=== PATIENT | female | born 1960 | race African-American/Black ===

== ENCOUNTER 2016-10-22 14:46 | Emergency (ER) | payer MEDICAID, OTHER ==
[~2016-10-22] VITALS: Ht 165.1 cm; Wt 72.6 kg
[~2016-10-22 14:46] MED LIST: METOPROLOL25 MG; NAPROSYN250 M1 PO; VICODIN 5/500 M1 TAB PO; ZOCOR20 MG PO
[2016-10-22 15:14] VITALS: BP 159/90
--- NOTE | 2016-10-22 16:30 | NUR ---
PT AMBULATED TO BED 5.
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
[2016-10-22] MEDS ORDERED: HYDROcodone/APAP 5/325 MG 1 TAB TAB PO ONE (16:50)
[2016-10-22] MEDS ORDERED: IBUPROFEN 600 MG TAB PO ONE (16:50)
--- NOTE | 2016-10-22 17:17 | NUR ---
PT TAKEN TO XRAY VIA W/C ACCOMPANIED BY [employer].
--- NOTE | 2016-10-22 17:45 | NUR ---
ER MD DR. RODAS EVALUATING PT AT BEDSIDE.
[2016-10-22 19:02] VITALS: BP 141/83
--- NOTE | 2016-10-22 19:02 | NUR ---
Patient discharged with v/s stable. Written and verbal after care instructions given and explained. Patient alert, oriented and verbalized understanding of instructions. Ambulatory with steady gait. All questions addressed prior to discharge. ID band removed. Patient advised to follow up with PMD. Rx of NORCO 5MG-325MG TAB & ZOFRAN ODT 4MG given. Patient educated on indication of medication including possible reaction and side effects. Opportunity to ask questions provided and answered.
== END 2016-10-22 19:02 | disposition home or self-care (01) ==
LOC: MED 14:46
DX: S33.5XXA Sprain of ligaments of lumbar spine, initial encounter (principal); S13.9XXA Sprain of joints and ligaments of unspecified parts of neck, initial encounter; S20.219A Contusion of unspecified front wall of thorax, initial encounter; I10 Essential (primary) hypertension; F17.200 Nicotine dependence, unspecified, uncomplicated; Z98.890 Other specified postprocedural states; Z88.8 Allergy status to other drugs, medicaments and biological substances; V89.2XXA Person injured in unspecified motor-vehicle accident, traffic, initial encounter; Y93.89 Activity, other specified; Y92.89 Other specified places as the place of occurrence of the external cause; Y99.8 Other external cause status

== ENCOUNTER 2018-03-18 03:09 | Inpatient (IN) | payer OTHER ==
[~2018-03-18] VITALS: Ht 157.5 cm; Wt 61.2 kg
[2018-03-18 03:09] VITALS: BP 143/81
[~2018-03-18 03:09] MED LIST changes: +METO25TA14; -METOPROLOL25 MG; +NAPR250T1 PO; -NAPROSYN250 M1 PO; +SIMV20TA1 PO; +VIC PO; -VICODIN 5/500 M1 TAB PO; -ZOCOR20 MG PO
--- NOTE | 2018-03-18 03:09 | NUR ---
TO BED # 11 VIA W/C, REPORT GIVEN TO CASSIDY VIERA
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
[2018-03-18] MEDS ORDERED: NACL 0.9% 1,000 ML IV SCH (03:22)
[2018-03-18] MEDS ORDERED: fentaNYL 0.05 MG/ML VIAL IVP ONE (03:25)
[2018-03-18] MEDS ORDERED: ONDANSETRON 4 MG/2 ML VIAL IVP ONE (03:25)
--- NOTE | 2018-03-18 03:40 | NUR ---
PT TAKEN TO CT
[2018-03-18 03:44] LABS: BASOPHILS % (AUTO) 0.5 % (0.0-2.0); EOSINOPHILS % (AUTO) 0.3 % (0.0-4.0); HEMATOCRIT 41.9 % (36-48); HEMOGLOBIN 13.6 g/dL (12.0-16.0); LYMPHOCYTES # (AUTO) 1.4 K/uL (2.5-16.5); LYMPHOCYTES % (AUTO) 26.1 % (20.5-51.1); MEAN CORPUSCULAR HEMOGLOBIN 29 pg (27-31); MEAN CORPUSCULAR HGB CONC 33 g/dL (33-37); MEAN CORPUSCULAR VOLUME 88.4 fL (80-94); MONOCYTES # (AUTO) 0.4 K/uL (0.8-1.0); MONOCYTES % (AUTO) 7.1 % (1.7-9.3); NEUTROPHILS # (AUTO) 3.6 K/uL (1.8-7.7); PLATELET COUNT (AUTO) 226 K/uL (140-450); RED BLOOD CELL COUNT(AUTO) 4.74 MIL/uL (4.20-5.40); RED CELL DISTRIBUTION WIDTH 13.7 % (11.6-13.7); WHITE BLOOD COUNT (AUTO) 5.5 K/uL (4.8-10.8)
[2018-03-18 04:01] LABS: ANION GAP 7.1 (8-16); CARBON DIOXIDE 27.4 mmol/L (21-32); CREATININE 1.2 mg/dL (0.6-1.3); POTASSIUM 3.5 mmol/L (3.5-5.1)
[2018-03-18 04:07] LABS: TOTAL BILIRUBIN 0.3 mg/dL (0.0-1.0)
[2018-03-18] MEDS ORDERED: MORPHINE SULFATE 10 MG/ML SYR IVP ONE (04:40)
--- NOTE | 2018-03-18 04:40 | NUR ---
ER AT BEDSIDE TO SPEAK WITH PT AND PT'S . PT'S LEAVING AT THIS TIME, LEFT CONTACT INFO MER MUNROE [id number]
[2018-03-18] MEDS ORDERED: MORPHINE SULFATE 10 MG/ML SYR ONE (04:53)
--- NOTE | 2018-03-18 04:55 | NUR ---
MS 10MG VIAL NOT AVAILABLE IN XIS, MED RECEIVED FROM DUST SAMPLER. PT IN SEVERE PAIN, VS NOTED, ADMINISTERED MED. PT TOLERATED WELL. ALL NEEDS MET AT THIS TIME.
[2018-03-18] MEDS ORDERED: ONDANSETRON 4 MG/2 ML VIAL IVP PRN (05:15)
--- NOTE | 2018-03-18 05:30 | NUR ---
PT UNABLE TO COLLECT URINE AT THIS TIME, ENSORED TO MS VIERA
--- NOTE | 2018-03-18 05:40 | NUR ---
Patient will be admitted to care of DR. OLSON. Admited to MS. Will go to room 107B. Belongings list completed. Report to AYLIN MARIE AT BEDSIDE.
--- NOTE | 2018-03-18 05:50 | NUR ---
ADMITTED A 57 Y/O FEMALE FROM VIA GURNEY WITH C/C OF RIGHT LOWER QUADRANT PAIN X 5 HRS, NAUSEA/VOMITING.V/S TAKEN FOR BASELINE. NO S/S OF DISTRESS NOTED AT THIS TIME. PATIENT AMBULATORY WITH ASSIST, AAOX4.,DENIES PAIN AT THIS TIME. PERSONAL BELONGINGS AT PATIENT BEDSIDE. SKIN INTACT. MRSA NASAL SWAB DONE AND SEND TO LAB. FALL PRECAUTION IN PLACE. INSTRUCTED PATIENT TO USE THE CALL LIGHT IF SHE NEED ASSISTANCE VERBALIZED UNDERSTANDING. EXPLAINED PLAN OF CARE , ALL NEEDS ATTENDED. PLACE BLANKET FOR COMFORT. WILL CONTINUE TO MONITOR.
--- NOTE | 2018-03-18 07:10 | NUR ---
RECEIVED PT REPORT FROM REFINERY OPERATOR HELPER RN. PT IS AAOX4, AMBULATE WITH ASSIST. CC: ABD PAIN. IV NOTED TO LEFT AC, 18, PATENT AND INTACT. FALL PRECAUTIONS IN PLACE. CALL LIGHT WITHIN REACH, WILL CONTINUE TO MONITOR.
[2018-03-18] MEDS: DEXT 5% / NACL 0.45% 1,000 ML IV SCH ×2 (07:30→15:42)
--- NOTE | 2018-03-18 07:32 | NUR ---
GAVE REPORT TO AM SHIFT RN AT BEDSIDE FOR CONTINUITY OF CARE. PATIENT IN STABLE CONDITION.
[2018-03-18 08:00] VITALS: BP 142/90
--- NOTE | 2018-03-18 08:49 | NUR ---
PATIENT HAS BEEN SCREENED AND CATEGORIZED MODERATE NUTRITION RISK. PATIENT WILL BE SEEN WITHIN 3-5 DAYS OF ADMISSION. 03/20/18 03/22/[address]
[2018-03-18] MEDS: ENOXAPARIN 40 MG/0.4 ML SYR SUBQ SCH (09:42)
--- NOTE | 2018-03-18 10:30 | NUR ---
ASSIST PT TO RESTROOM, COLLECTED URINE SAMPLE, SENT TO LAB. NO S/S OF ACUTE DISTRESS NOTED.
[2018-03-18] MEDS: HYDROmorphone 1 MG/ML AMP IVP PRN ×3 (11:25→22:08)
--- NOTE | 2018-03-18 12:45 | NUR ---
CM NOTE INITIAL REVIEW FAXED TO [facility] [phone] [facility] # [phone]
[2018-03-18 12:48] LABS: BILIRUBIN,URINE NEGATIVE (NEGATIVE); BLOOD, URINE 1+ (NEGATIVE); COLOR,URINE YELLOW (YELLOW); LEUKOCYTE ESTERASE ,URINE 1+ (NEGATIVE); NITRITE, URINE NEGATIVE (NEGATIVE); UGLUCOSE NEGATIVE (NEGATIVE)
[2018-03-18 12:56] LABS: APPEARANCE,URINE SLIGHTLY HAZY (CLEAR)
[2018-03-18 12:57] LABS: RBC,URINE 0-5 (RARE) /HPF (0-5)
[2018-03-18] MEDS ORDERED: INFLUENZA VIRUS VACCINE QUAD 0.5 ML SYR IMVAC SCH (14:55)
[2018-03-18] MEDS ORDERED: PNEUMOCOCCAL VACCINE 23 MCG/0.5 ML VIAL IMVAC SCH (14:55)
[2018-03-18 16:00] VITALS: BP 123/77
--- NOTE | 2018-03-18 17:10 | NUR ---
DR SHARMA HAS SEEN THE PT.
[2018-03-18 18:25] LABS: PROTHROMBIN TIME 10.4 secs (10.8-13.4)
--- NOTE | 2018-03-18 19:26 | NUR ---
CALLED DR SHARMA, NOTIFIED X RAY ABD RESULT, DR SHARMA ORDERED REGULAR DIET. WHEN ASKED IF PT GOING FOR SX, DR SHARMA SAID NO.
--- NOTE | 2018-03-18 19:39 | NUR ---
ENDORSED PT TO DIRECTOR INFORMATION SECURITY RN. PT IN STABLE CONDITION.
--- NOTE | 2018-03-18 19:39 | NUR ---
RECEIVED PT REPORT FROM HOME OFFICE REPRESENTATIVE RN. PT IS AAOX4, AMBULATE WITH ASSIST. CC: ABD PAIN. IV NOTED TO LEFT AC, 18, PATENT AND INTACT. FALL PRECAUTIONS IN PLACE. CALL LIGHT WITHIN REACH, WILL CONTINUE TO MONITOR. Addendum: 03/18/18 at 1942 by Juan Tripathi RN PLEASE DISCARD, WRONG TIME ENTERED.
--- NOTE | 2018-03-18 19:39 | NUR ---
RECEIVED REPORT FROM DAY SHIFT RN, MANOLO, AT PT BEDSIDE. PT IN STABLE CONDITION. PT IS CURRENTLY SLEEPING BUT EASILY AROUSABLE. IV IN L AC 18G WITH IVF RUNNING PER MD ORDERS. IV IS PATENT AND INTACT. PT SKIN IS INTACT. NO C/O PAIN AT THIS TIME. BED IS LOCKED, LOW POSITION, WITH SIDE RAILS UP X2. BOARD UPDATED. CALL LIGHT WITHIN REACH. WILL CONTINUE TO MONITOR PT.
--- NOTE | 2018-03-18 20:53 | NUR ---
PT AT BEDSIDE. PT STILL SLEEPING BUT EASILY AROUSABLE. NO SIGNS OR SYMPTOMS OF DISTRESS. WILL CONTINUE TO MONITOR.
--- NOTE | 2018-03-18 22:08 | NUR ---
PT C/O PAIN. DILAUDID GIVEN. PT TOLERATED WELL. WILL CONTINUE TO MONITOR.
--- NOTE | 2018-03-18 23:08 | NUR ---
PT ASLEEP IN BED. NO SIGNS OR SYMPTOMS OF DISTRESS. WILL CONTINUE TO MONITOR.
[2018-03-19] VITALS: BP 137/85
--- NOTE | 2018-03-19 01:04 | NUR ---
PT HAS NO CHANGE IN CONDITION. NO SIGNS OR SYMPTOMS OF DISTRESS. WILL CONTINUE TO MONITOR.
--- NOTE | 2018-03-19 03:21 | NUR ---
ASSISTED PT UP TO BATHROOM. PT TOLERATED WELL. PT NOW BACK IN BED. NO SIGNS OR SYMPTOMS OF DISTRESS. WILL CONTINUE TO MONITOR.
[2018-03-19] MEDS: DEXT 5% / NACL 0.45% 1,000 ML IV SCH (03:26)
--- NOTE | 2018-03-19 05:17 | NUR ---
BOAT RIDE OPERATOR AT PT BEDSIDE FOR LABS DRAW.
[2018-03-19] MEDS: HYDROmorphone 1 MG/ML AMP IVP PRN (05:26)
--- NOTE | 2018-03-19 05:26 | NUR ---
PT C/O PAIN. DILAUDID GIVEN. PT TOLERATED WELL. WILL CONTINUE TO MONITOR.
[2018-03-19 05:50] LABS: BASOPHILS % (AUTO) 0.5 % (0.0-2.0); EOSINOPHILS # (AUTO) 0.1 K/uL (0-0.4); EOSINOPHILS % (AUTO) 1.3 % (0.0-4.0); HEMATOCRIT 37.8 % (36-48); HEMOGLOBIN 12.2 g/dL (12.0-16.0); LYMPHOCYTES # (AUTO) 2.5 K/uL (2.5-16.5); LYMPHOCYTES % (AUTO) 55.9 % (20.5-51.1); MEAN CORPUSCULAR HEMOGLOBIN 29 pg (27-31); MEAN CORPUSCULAR HGB CONC 32 g/dL (33-37); MEAN CORPUSCULAR VOLUME 88.9 fL (80-94); MONOCYTES # (AUTO) 0.4 K/uL (0.8-1.0); MONOCYTES % (AUTO) 9.4 % (1.7-9.3); NEUTROPHILS # (AUTO) 1.5 K/uL (1.8-7.7); NEUTROPHILS % (AUTO) 32.9 % (42.2-75.2); PLATELET COUNT (AUTO) 193 K/uL (140-450); RED BLOOD CELL COUNT(AUTO) 4.25 MIL/uL (4.20-5.40); RED CELL DISTRIBUTION WIDTH 13.6 % (11.6-13.7); WHITE BLOOD COUNT (AUTO) 4.5 K/uL (4.8-10.8)
[2018-03-19 06:18] LABS: CARBON DIOXIDE 26.4 mmol/L (21-32); CREATININE 0.9 mg/dL (0.6-1.3)
--- NOTE | 2018-03-19 06:26 | NUR ---
PT NOW RESTING COMFORTABLY IN BED. PAIN NO 2/10. ALL PT NEEDS ARE MET AT THIS TIME. NO SIGNS OR SYMPTOMS OF DISTRESS. WILL CONTINUE TO MONITOR.
[2018-03-19 06:32] LABS: ANION GAP 5.6 (8-16)
--- NOTE | 2018-03-19 07:22 | NUR ---
ENDORSED PT TO DAY SHIFT NURSE. PT IN STABLE CONDITION.
--- NOTE | 2018-03-19 07:25 | NUR ---
RECEIVED REPORT FROM SHIPPING CLERK NURSE, PT IS SLEEPING IN BED, BUT EASILY AWAKEN, PT IS AMBULATORY, IV IS ON THE LEFT AC, PATENT, INTACT, FLUSHING WELL, ON ROOM AIR, NO S/S RESPIRATORY DISTRESS OR DISCOMFORT NOTED, DISCUSSED PLAN OF CARE WITH PT, PT VERBALIZED UNDERSTANDING, CALL LIGHT IS WITHIN REACH, WILL CONTINUE TO MONITOR.
[2018-03-19 08:00] VITALS: BP 139/91
[2018-03-19] MEDS: ENOXAPARIN 40 MG/0.4 ML SYR SUBQ SCH (08:22)
[2018-03-19] MEDS ORDERED: PANTOPRAZOLE 40 MG INJ VIAL IVP SCH (09:00)
--- NOTE | 2018-03-19 09:02 | NUR ---
DR. OLSON HERE TO SEE PATIENT. I LET DR. OLSON THE PATIENT'S POTASSIUM LEVEL WAS 3.0.
--- NOTE | 2018-03-19 09:05 | NUR ---
CM NOTE CONCURRENT REVIEW FAXED TO [facility] [phone] [facility] # [phone]
[2018-03-19] MEDS ORDERED: ONDANSETRON 4 MG/2 ML VIAL IVP PRN (09:07)
[2018-03-19] MEDS ORDERED: POTASSIUM CHLORIDE 10 MEQ TABER PO SCH (10:30)
--- NOTE | 2018-03-19 11:00 | NUR ---
DISCHARGE INSTRUCTIONS GIVEN, PT IV REMOVED, CATHETER TIP INTACT, ID WRIST BAND REMOVED. PT STABLE UPON DISCHARGE ACCOMPANIED BY HER .
--- NOTE | 2018-03-20 08:36 | NUR ---
DISCHARGE SUMMARY FAXED TO [facility] [phone]
== END 2018-03-19 11:00 | disposition home or self-care (01) | DRG 254 ==
LOC: MED 03:09 → MTU 05:13
PROVIDERS: ADMIT Internal Medicine; ATTEND Internal Medicine
PROC: 3E0234Z Introduction of Serum, Toxoid and Vaccine into Muscle, Percutaneous Approach (ICD-10-PCS; principal; 2018-03-18)
DX: K43.0 Incisional hernia with obstruction, without gangrene (principal); E78.5 Hyperlipidemia, unspecified; I10 Essential (primary) hypertension; Z23 Encounter for immunization; Z79.899 Other long term (current) drug therapy
CPT/HCPCS: 36415; 74022; 80048; 80053; 81001; 81025; 83690; 85025; 85610; 85730; 86886; 86900; 86901; 87081; 87086; 90658; 96374; 96375; 99285; C9113; J1170; J1650; J2270; J2405; J3010

== ENCOUNTER 2018-05-31 03:13 | Emergency (ER) | payer OTHER ==
[~2018-05-31] VITALS: Ht 157.5 cm; Wt 63.5 kg
[2018-05-31 03:13] VITALS: BP 159/93
--- NOTE | 2018-05-31 03:13 | NUR ---
Patient BIBA BLS, transferred to bed 8. RN evaluating patient at bedside.
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
[2018-05-31] MEDS ORDERED: NACL 0.9% 500 ML IV SCH (03:21)
[2018-05-31] MEDS ORDERED: ONDANSETRON 4 MG/2 ML VIAL IVP ONE (03:25)
[2018-05-31] MEDS ORDERED: fentaNYL 0.05 MG/ML VIAL IVP ONE ×2 (03:25→04:00)
[2018-05-31 03:39] LABS: WHITE BLOOD COUNT (AUTO) 4.8 K/uL (4.8-10.8)
--- NOTE | 2018-05-31 03:48 | NUR ---
Patient taken to CT scan via gurney by Yunzhisheng.
--- NOTE | 2018-05-31 03:50 | NUR ---
pt states pain down to 4/10 from 10/10 and pain is still coming down. pt appears relaxed in bed, hr 82 bp 159/83, rr 13, spo2 100% room air. will continue to observe.
[2018-05-31 03:51] LABS: HEMATOCRIT 40.8 % (36-48); HEMOGLOBIN 12.8 g/dL (12.0-16.0); MEAN CORPUSCULAR HEMOGLOBIN 28 pg (27-31); MEAN CORPUSCULAR HGB CONC 32 g/dL (33-37); MEAN CORPUSCULAR VOLUME 89.1 fL (80-94); PLATELET COUNT (AUTO) 214 K/uL (140-450); RED BLOOD CELL COUNT(AUTO) 4.58 MIL/uL (4.20-5.40); RED CELL DISTRIBUTION WIDTH 14.3 % (11.6-13.7)
[2018-05-31 03:53] LABS: ANION GAP 7.9 (8-16); CARBON DIOXIDE 30.5 mmol/L (21-32); POTASSIUM 3.4 mmol/L (3.5-5.1)
[2018-05-31 03:57] LABS: PROTHROMBIN TIME 9.6 secs (10.8-13.4)
[2018-05-31 03:58] LABS: ALBUMIN 3.5 g/dL (3.4-5.0); TOTAL BILIRUBIN 0.3 mg/dL (0.0-1.0)
[2018-05-31 04:11] LABS: LYMPHOCYTES % (MANUAL) 59 % (20-46); MONOCYTES % (MANUAL) 8 % (5-12)
--- NOTE | 2018-05-31 04:48 | NUR ---
Dr. Palomares evaluating patient at bedside.
--- NOTE | 2018-05-31 04:50 | NUR ---
pt states pain now 0/10 pain. VSS. no acute distress noted. will continue to observe.
--- NOTE | 2018-05-31 05:00 | NUR ---
Patient discharged with v/s stable. Written and verbal after care instructions given and explained. Patient alert, oriented and verbalized understanding of instructions. Ambulatory with steady gait. All questions addressed prior to discharge. ID band removed. Patient advised to follow up with PMD. Rx of lactulose, mineral oil given. Patient educated on indication of medication including possible reaction and side effects. Opportunity to ask questions provided and answered.
[2018-05-31 05:14] VITALS: BP 140/68
== END 2018-05-31 05:00 | disposition home or self-care (01) ==
LOC: MED 03:13
DX: K59.09 Other constipation (principal); I10 Essential (primary) hypertension; Z79.899 Other long term (current) drug therapy; Z88.8 Allergy status to other drugs, medicaments and biological substances
CPT/HCPCS: 36415; 71045; 74176; 80053; 81002; 81025; 83605; 85025; 85610; 85730; 87040; 93005; 96361; 96374; 96375; 96376; 99284; J2405; J3010; J7030; Q0092

== ENCOUNTER 2018-08-09 02:03 | Inpatient (IN) | payer OTHER ==
[~2018-08-09] VITALS: Ht 157.5 cm; Wt 67.6 kg
[2018-08-09 02:05] VITALS: BP 129/93
--- NOTE | 2018-08-09 02:25 | NUR ---
PT BIB FAMILY C/O RLQ "HERNIA" PAIN, X2 DAYS. ABD IS DISTENDED AND TENDER TO TOUCH IN RLQ. PT DENIES FEVER. REPORTS NAUSEA, DENIES VOMITING. REPORTS SOFT BM TODAY, DENIES DIARRHEA OR CONSTIPATION. TOOK NORCO AT 1600 WITHOUT RELIEF. HX HERNIA, CHF, HTN, GERD RX: LASIX, NORCO
--- NOTE | 2018-08-09 02:31 | NUR ---
Dr. Palomares evaluating patient at bedside.
[2018-08-09] MEDS ORDERED: NACL 0.9% 1,000 ML IV SCH ×2 (02:32→04:00)
[2018-08-09] MEDS ORDERED: fentaNYL 0.05 MG/ML VIAL IVP ONE (02:35)
[2018-08-09] MEDS ORDERED: ONDANSETRON 4 MG/2 ML VIAL IVP ONE (02:35)
[2018-08-09] MEDS ORDERED: ONDANSETRON 4 MG/2 ML VIAL ONE (02:57)
[2018-08-09] MEDS ORDERED: fentaNYL 0.05 MG/ML VIAL ONE (02:57)
[2018-08-09 03:01] LABS: BASOPHILS # (AUTO) 0.1 K/uL (0.00-0.22); BASOPHILS % (AUTO) 1.2 % (0.0-2.0); EOSINOPHILS # (AUTO) 0.1 K/uL (0-0.4); EOSINOPHILS % (AUTO) 1.7 % (0.0-4.0); HEMATOCRIT 37.7 % (36-48); HEMOGLOBIN 12.1 g/dL (12.0-16.0); LYMPHOCYTES # (AUTO) 2.3 K/uL (2.5-16.5); LYMPHOCYTES % (AUTO) 37.6 % (20.5-51.1); MEAN CORPUSCULAR HEMOGLOBIN 29 pg (27-31); MEAN CORPUSCULAR HGB CONC 32 g/dL (33-37); MONOCYTES # (AUTO) 0.8 K/uL (0.8-1.0); MONOCYTES % (AUTO) 12.6 % (1.7-9.3); NEUTROPHILS # (AUTO) 2.9 K/uL (1.8-7.7); NEUTROPHILS % (AUTO) 46.9 % (42.2-75.2); PLATELET COUNT (AUTO) 220 K/uL (140-450); RED BLOOD CELL COUNT(AUTO) 4.24 MIL/uL (4.20-5.40); RED CELL DISTRIBUTION WIDTH 13.9 % (11.6-13.7); WHITE BLOOD COUNT (AUTO) 6.1 K/uL (4.8-10.8)
[2018-08-09 03:06] LABS: ANION GAP 10.2 (8-16); CREATININE 0.8 mg/dL (0.6-1.3); POTASSIUM 4.2 mmol/L (3.5-5.1)
[2018-08-09 03:11] LABS: APPEARANCE,URINE CLEAR (CLEAR); BILIRUBIN,URINE NEGATIVE (NEGATIVE); BLOOD, URINE 1+ (NEGATIVE); COLOR,URINE YELLOW (YELLOW); LEUKOCYTE ESTERASE ,URINE 2+ (NEGATIVE); NITRITE, URINE NEGATIVE (NEGATIVE); UGLUCOSE TRACE (NEGATIVE)
[2018-08-09 03:21] LABS: ALBUMIN 3.3 g/dL (3.4-5.0); TOTAL BILIRUBIN 0.1 mg/dL (0.0-1.0)
[2018-08-09 03:23] LABS: WBC,URINE 20-60 /HPF (0-5)
[2018-08-09] MEDS ORDERED: ASPIRIN 81 MG TAB.CHEW PO ONE (03:35)
[2018-08-09] MEDS ORDERED: LEVOFLOXACIN 500 MG/D5W PREMIX 100 ML IV ONE ×2 (03:35→03:49)
[2018-08-09 03:41] LABS: PROTHROMBIN TIME 9.8 secs (10.8-13.4)
[2018-08-09] MEDS ORDERED: ASPIRIN 81 MG TAB.CHEW ONE (03:48)
[2018-08-09] MEDS ORDERED: hePARIN / DEXT 5% PREMIX 250 ML IV SCH ×3 (03:50→21:35)
[2018-08-09] MEDS ORDERED: HEPARIN PER PHARMACY MC PRN ×2 (03:50→20:45)
[2018-08-09] MEDS ORDERED: DOCUSATE SODIUM 100 MG GELCAP PO PRN (03:50)
[2018-08-09] MEDS ORDERED: ONDANSETRON 4 MG/2 ML VIAL IM/IVP PRN (03:50)
[2018-08-09] MEDS ORDERED: ACETAMINOPHEN 325 MG TAB PO PRN (03:50)
[2018-08-09] MEDS ORDERED: MORPHINE SULFATE 4 MG/ML SYR IVP ONE (03:55)
[2018-08-09] MEDS ORDERED: NITROGLYCERIN 0.4 MG TAB SL PRN (03:55)
[2018-08-09] MEDS ORDERED: MORPHINE SULFATE 2 MG/ML SYR ONE (04:06)
[2018-08-09 04:09] LABS: BARBITURATE, URINE NEG. ng/ml (NEG <=200); BENZODIAZEPINE, URINE NEG. ng/mL (NEG <=200); CANNABINOID, URINE POS. ng/mL (NEG <=50); COCAINE, URINE NEG. ng/mL (NEG <=300); OPIATE, URINE NEG. ng/mL (NEG <=2000); PHENCYCLIDINE SCREEN,URINE NEG. ng/mL (NEG <=25)
[2018-08-09 04:10] VITALS: BP 143/94
--- NOTE | 2018-08-09 04:10 | NUR ---
RECEIVED PT FROM ER AWAKE,AMBULATORY C/O ABD PAIN RIGHT SIDE. PT ON TELE. PT VOIDED 2X WITH CLEAR YELLOW URINE. PASSED OUT GAS. WITH NS IVF ONGOING AND LEVOFLOXACIN ON RIGHT AC G 20, PATENT. POC REVIEWED. CALL ;LIGHT WITHIN EASY REACH
--- NOTE | 2018-08-09 04:15 | NUR ---
Patient will be admitted to care of DR HERNANDEZ. Admited to TELE VIA GURNEY WITH VSS. Will go to room 124B. Belongings list completed. Report to IRMA VIERA.
[2018-08-09 04:18] LABS: CHOL/HDL RATIO 1.9 (1-4.5); MAGNESIUM 1.8 mg/dL (1.8-2.4); PHOSPHORUS 3.2 mg/dL (2.5-4.9); THYROID STIMULATING HORMONE 1.3 uIU/mL (0.34-3.74)
--- NOTE | 2018-08-09 05:00 | NUR ---
INFORMED . RESULT OF CT ABDOMEN; LOWER ABD HERNIA, HERNIATED SMALL BOWEL AND INFLAMMATION WELL, EARLY BOWEL OBSTRUCTION
[2018-08-09] MEDS ORDERED: cefTRIAXone 1,000 MG VIAL ONE (06:01)
--- NOTE | 2018-08-09 06:16 | NUR ---
STILL AWAITING CT SCAN OF THE HEAD. PLS AWAIT RESULTS OF CT SCAN 1ST PRIOR TO STARTING HEPARIN DRIP PER DE. ALY
[2018-08-09] MEDS: DEXT 5% / NACL 0.45% 1,000 ML IV SCH ×3 (06:39→22:35)
--- NOTE | 2018-08-09 07:19 | NUR ---
ENDORSED PT TO NEXT SHIFT FOR CONTUINITY OF CARE. JUST GOT BACK FROM CT SCAN OF THE HEAD. ENDORSED THAT PT NEEDS NGT WITH CONTINUOS SUCTION.
--- NOTE | 2018-08-09 07:20 | NUR ---
RECEIVED BEDSIDE REPORT FROM AYLIN SOLIS. PT STABLE, SLEEPING, BUT EASILY AROUSABLE. NO SIGNS OF DISTRESS NOTED. NO SOB NOTED. FAMILY AT THE BEDSIDE. NO REDNESS, SWELLING, OR INFLAMMATION NOTED ON IV SITE. CALL CUMMINGS WITHIN REACH. BED IN LOWEST POSITION. SAFETY MEASURES IN PLACE. PLAN OF CARE REVIEWED.
[2018-08-09 08:00] VITALS: BP 108/72
[2018-08-09] MEDS: LACTULOSE 20 GM/30 ML UDC PO SCH ×3 (09:00→17:00)
[2018-08-09] MEDS: ASPIRIN 81 MG TAB.CHEW PO SCH (09:00)
[2018-08-09] MEDS ORDERED: METOPROLOL 25 MG TAB PO SCH (09:00)
[2018-08-09] MEDS: LACTOBACILLUS RHAMNOSUS GG 1 EACH CAP PO SCH (09:00)
--- NOTE | 2018-08-09 09:00 | NUR ---
PT SIGNED CONSENT FOR HERNIA REPAIR. SCHEDULED MEDICATIONS NOT GIVEN DUE TO PT BEING NPO AND AWAITING SURGERY.
[2018-08-09 12:00] VITALS: BP 102/64
[2018-08-09] MEDS: MORPHINE SULFATE 2 MG/ML SYR IVP PRN ×2 (12:39→21:29)
--- NOTE | 2018-08-09 12:46 | NUR ---
ADMINISTERED PRN MORPHINE FOR RIGHT ABDOMINAL PAIN 12/17. PT TOLERATED WELL. SON AT THE BEDSIDE. PT SIGNED CONSENT FOR RELEASE OF MEDICAL RECORDS FROM [facility].
--- NOTE | 2018-08-09 14:30 | NUR ---
PT STABLE, SLEEPING, BUT EASILY AROUSABLE. SON AT THE BEDSIDE.
[2018-08-09 16:00] VITALS: BP 136/93
[2018-08-09] MEDS ORDERED: LORazepam 2 MG/ML VIAL IVP SCH (17:50)
--- NOTE | 2018-08-09 17:52 | NUR ---
ADMINISTERED ONE TIME DOSE OF ATIVAN PRIOR TO NG-TUBE INSERTION. PT TOLERATED WELL.
[2018-08-09 17:53] LABS: ANION GAP 11.9 (8-16); CARBON DIOXIDE 26.6 mmol/L (21-32); CREATININE 0.9 mg/dL (0.6-1.3); POTASSIUM 3.5 mmol/L (3.5-5.1)
--- NOTE | 2018-08-09 18:40 | NUR ---
NG-TUBE INSERTED. PT TOLERATED WELL. DAUGHTER AT THE BEDSIDE. WILL CALL FOR AN ORDER FOR X-RAY TO VERIFY NG-TUBE PLACEMENT.
--- NOTE | 2018-08-09 19:25 | NUR ---
RECEIVED PT IN STABLE CONDITION FROM AM NURSE. PT IS ASLEEP BUT EASILY AROUSE WHEN NAME CALLED. NO C/O ANY DISCOMFORT NOR PAIN NOTED AT THIS TIME. IVF INFUSING WELL ON THE RT AC#20. HAS ANOTHER HL ON LT AC G#20. KEPT NPO . WITH NGT TO INTERMITTENT SUCTION. NO OUTPUT NOTED AT THIS TIME. FAMILY AT BEDSIDE. PLAN OF CARE DISCUSSED AND VERBALIZED UNDERSTANDING. BED ON LOWEST POSITION, CALL LIGHT PLACED WITHIN EASY REACH. WILL CONTINUE TO MONITOR.
--- NOTE | 2018-08-09 19:26 | NUR ---
ENDORSED PT TO RN BETTY FOR CONTINUITY OF CARE. PT STABLE, AWAKE, AND ALERT. DAUGHTER AT THE BEDSIDE.
[2018-08-09 19:45] VITALS: BP 126/83
--- NOTE | 2018-08-09 19:45 | NUR ---
PT STILL KEPT NPO AND NGT IN PLACED. NO OUTPUT NOTED. KUB JUST DONE AT BEDSIDE. WILL FOLLOW UP RESULT.
--- NOTE | 2018-08-09 21:40 | NUR ---
KUB RESULT IN. RECOMMENDATION TO ADVANCE NGT 5CM . DR. LORENZO MADE AWARE. SOON IT WAS ADVANCE THEN OUTPUT ON NGT CAME OUT , LIGHT CREAM COLOR FLUIDS OUT @70ML. WILL CONTINUE TO MONITOR.
[2018-08-09] MEDS ORDERED: METOPROLOL SUCCINATE 50 MG TABER PO ONE (22:00)
[2018-08-09] MEDS ORDERED: CARVEDILOL 6.25 MG TAB PO SCH (22:30)
[2018-08-09] MEDS ORDERED: FUROSEMIDE 20 MG TAB PO SCH (22:30)
[2018-08-09] MEDS: ATORVASTATIN 20 MG TAB PO SCH (22:40)
[2018-08-10] VITALS (7 sets, daily range): BP systolic 102–145; BP diastolic 68–89
--- NOTE | 2018-08-10 00:20 | NUR ---
PT VITLA SIGNS TAKEN. STABLE. ASSISTED UP TO THE BSC. VOIDED WELL. NO C/O PAIN AT THIS TIME.
[2018-08-10] MEDS: MORPHINE SULFATE 2 MG/ML SYR IVP PRN ×3 (02:26→12:01)
--- NOTE | 2018-08-10 02:52 | NUR ---
LATEST TROPONIN 0.738. TRENDING DOWN. DR. LORENZO MADE AWARE. NO CHANGE IN ORDER.
--- NOTE | 2018-08-10 03:26 | NUR ---
MADE ROUNDS. PT ASLEEP. NO MORE S/S OF ANY PAIN NOTED.
--- NOTE | 2018-08-10 05:07 | NUR ---
ASSISTED UP AGAIN TO THE [facility] [place]VOIDED WELL. NO C/O PAIN AT THIS TIME.
[2018-08-10] MEDS: DEXT 5% / NACL 0.45% 1,000 ML IV SCH (05:18)
[2018-08-10] MEDS ORDERED: METOPROLOL SUCCINATE 50 MG TABER PO SCH (06:00)
--- NOTE | 2018-08-10 06:00 | NUR ---
PT NOT SURE IF SHE GOT BOTH FLU AND PNA VACCINE. WILL WAIT FOR FAMILY THIS AM TO CLARIFY WITH THEM.
--- NOTE | 2018-08-10 06:41 | NUR ---
NGT OUTPUT 230 ML OBTAINED . NO C/O PAIN AT THIS TIME.
--- NOTE | 2018-08-10 06:50 | NUR ---
PATIENT HAS BEEN SCREENED AND CATEGORIZED MODERATE NUTRITION RISK. PATIENT WILL BE SEEN WITHIN 3-5 DAYS OF ADMISSION. 08/10/18-08/12/18 PERI CASANOVA MS, RDN
--- NOTE | 2018-08-10 07:08 | NUR ---
ENDORSED PT IN STABLE CONDITION TO AM NURSE.
[2018-08-10 07:32] LABS: BASOPHILS # (AUTO) 0.1 K/uL (0.00-0.22); EOSINOPHILS # (AUTO) 0.1 K/uL (0-0.4); EOSINOPHILS % (AUTO) 1.1 % (0.0-4.0); HEMATOCRIT 37.9 % (36-48); HEMOGLOBIN 12.6 g/dL (12.0-16.0); LYMPHOCYTES # (AUTO) 1.8 K/uL (2.5-16.5); LYMPHOCYTES % (AUTO) 29.1 % (20.5-51.1); MEAN CORPUSCULAR HEMOGLOBIN 29 pg (27-31); MEAN CORPUSCULAR HGB CONC 33 g/dL (33-37); MONOCYTES # (AUTO) 1.1 K/uL (0.8-1.0); NEUTROPHILS # (AUTO) 3.3 K/uL (1.8-7.7); PLATELET COUNT (AUTO) 222 K/uL (140-450); RED BLOOD CELL COUNT(AUTO) 4.36 MIL/uL (4.20-5.40); RED CELL DISTRIBUTION WIDTH 13.4 % (11.6-13.7); WHITE BLOOD COUNT (AUTO) 6.3 K/uL (4.8-10.8)
[2018-08-10 07:47] LABS: ANION GAP 11.3 (8-16); CARBON DIOXIDE 28.2 mmol/L (21-32); CREATININE 0.8 mg/dL (0.6-1.3); POTASSIUM 3.5 mmol/L (3.5-5.1)
[2018-08-10 08:10] LABS: T4 (THYROXINE) 6.2 ug/dL (4.5-12.0)
[2018-08-10 08:25] LABS: MONOCYTES % (AUTO) 16.8 % (1.7-9.3)
[2018-08-10] MEDS: SPIRONOLACTONE 25 MG TAB PO SCH (09:00)
[2018-08-10] MEDS: LACTOBACILLUS RHAMNOSUS GG 1 EACH CAP PO SCH (09:00)
[2018-08-10] MEDS: CARVEDILOL 6.25 MG TAB PO SCH ×2 (09:00→21:00)
[2018-08-10] MEDS: FUROSEMIDE 20 MG TAB PO SCH ×2 (09:00→21:12)
[2018-08-10] MEDS: LACTULOSE 20 GM/30 ML UDC PO SCH ×3 (09:00→17:18)
[2018-08-10] MEDS: ASPIRIN 81 MG TAB.CHEW PO SCH (09:00)
--- NOTE | 2018-08-10 09:30 | NUR ---
PATIENT LYING DOWN IN BED, NO DISTRESS NOTED. PAIN WITHIN TOLERABLE. NGTUBE LOW INTERMITTENT SUCTION RUNNING. MEDICATIONS DUE AT THIS TIME NOT GIVEN PER MD ORDERS TO HOLD OFF UNTIL AFTER SURGERY. WILL CONTINUE TO MONITOR.
--- NOTE | 2018-08-10 11:03 | NUR ---
PATIENT LYING DOWN IN BED SLEEPING, AROUSABLE BY VOICE. NO DISTRESS NOTED. CONDITION UNCHANGED. WILL CONTINUE TO MONITOR.
--- NOTE | 2018-08-10 12:03 | NUR ---
PATIENT SITTING IN BED WITH COMPLAINTS OF ABD PAIN, MORPHINE GIVEN. SCHEDULED LACTULOSE NOT GIVEN AT THIS TIME PER MD ORDERS TO WAIT UNTIL AFTER SURGERY. WILL CONTINUE TO MONITOR.
[2018-08-10] MEDS ORDERED: MIDAZOLAM 2 MG/2 ML VIAL ONE (14:39)
[2018-08-10] MEDS ORDERED: HYDROmorphone 1 MG/ML AMP IVP PRN (14:40)
[2018-08-10] MEDS ORDERED: SUCCINYLCHOLINE CHLORIDE 200 MG/10 ML VIAL IVP ONE (14:40)
[2018-08-10] MEDS ORDERED: ONDANSETRON 4 MG/2 ML VIAL ONE (14:40)
[2018-08-10] MEDS ORDERED: SEVOFLURANE 250 ML BTL INH ONE (14:40)
[2018-08-10] MEDS ORDERED: LACTATED RINGERS 1,000 ML IV SCH (14:40)
[2018-08-10] MEDS ORDERED: diphenhydrAMINE 50 MG/ML VIAL IVP PRN (14:40)
[2018-08-10] MEDS ORDERED: DEXAMETHASONE 4 MG/ML VIAL ONE (14:40)
[2018-08-10] MEDS ORDERED: fentaNYL 0.05 MG/ML VIAL ONE (14:40)
[2018-08-10] MEDS ORDERED: MEPERIDINE 25 MG/ML SYR IVP PRN (14:40)
[2018-08-10] MEDS ORDERED: KETOROLAC 30 MG/ML VIAL ONE (14:40)
[2018-08-10] MEDS ORDERED: MEPERIDINE 50 MG/ML SYR ONE (14:40)
[2018-08-10] MEDS ORDERED: PROPOFOL 200 MG/20 ML VIAL IV ONE (14:40)
[2018-08-10] MEDS ORDERED: ONDANSETRON 4 MG/2 ML VIAL IVP PRN (14:40)
[2018-08-10] MEDS ORDERED: BUPIVACAINE-MPF/EPI 0.5% 30 ML VIAL INJ ONE (14:56)
--- NOTE | 2018-08-10 15:00 | NUR ---
OR NURSES ON UNIT TO TAKE PATIENT FOR RIGHT INGUINAL HERNIA REPAIR. WILL CONTINUE TO MONITOR WHEN PATIENT RETURNS.
[2018-08-10] MEDS ORDERED: ceFAZolin 1,000 MG VIAL ONE (15:30)
--- NOTE | 2018-08-10 16:00 | NUR ---
PATIENT BACK ON MST UNIT FROM OR. NO DISTRESS NOTED. PATIENT AWAKE. PAIN ON RIGHT INGUINAL HERNIA REPAIR WITHIN TOLERABLE. DRESSING IS DRY AND INTACT. WILL CONTINUE TO MONITOR.
[2018-08-10] MEDS: HYDROcodone/APAP 5/325 MG 1 TAB TAB PO PRN ×2 (17:18→21:13)
--- NOTE | 2018-08-10 18:00 | NUR ---
PATIENT LYING DOWN IN BED SLEEPING, NO DISTRESS NOTED. CONDITION UNCHANGED. WILL CONTINUE TO MONITOR.
--- NOTE | 2018-08-10 19:30 | NUR ---
GAVE REPORT TO JIG AND FIXTURE BUILDER NURSE FOR CONTINUITY OF CARE. PATIENT IN STABLE CONDITION
--- NOTE | 2018-08-10 19:31 | NUR ---
RECEIVED PT IN STABLE CONDITION FROM AM NURSE. AWAKE,ALERT AND ORIENTED X4. ON TELE MONITOR. S/P RT INGUINAL HERNIA REPAIR WITH SMALL RT LOWER ABDOMINAL DRESSING DRY AND CLEAN. NO BLEEDING NOTED. HAS IVF INFUSING WELL ON THE RT AC BUT IS LEAKING, DC'D IV AND WILL RESTART IT ON THE LT AC G#20 IV LINE. NO C/O PAIN AT THIS TIME. BED ON LOWEST POSITION. FREQUENT ROUNDS NEEDED. CALL LIGHT PLACED WITHIN EASY REACH. INSTRUCTED TO CALL IF NEED TO USE BATHROOM. VERBALIZED UNDERSTANDING. WILL CONTINUE TO MONITOR.
--- NOTE | 2018-08-10 19:50 | NUR ---
PREVIOUSLY ASKED PT ABOUT PNA AND FLU VACCINE. SHE SAID SHE DIDN'T GET ANY YET . SHE SAID OK TO GET BOTH HERE. WILL HAVE KNOW.
--- NOTE | 2018-08-10 20:00 | NUR ---
UP TO BSC. VOIDED WELL WITH DARK YELLOW CLOUDY URINE. ENCOURAGED TO INCREASE FLUID INTAKE. VERBALIZED UNDERSTANDING
[2018-08-10] MEDS: ATORVASTATIN 20 MG TAB PO SCH (21:13)
--- NOTE | 2018-08-10 21:30 | NUR ---
CAME TO VISIT. PT PROVIDED WITH SOME JUICE AND JELLO REQUESTED. NO NAUSEA/VOMITING NOTED.
--- NOTE | 2018-08-10 22:30 | NUR ---
MADE ROUNDS. PT AWAKE, NO C/O ANY PAIN AT THIS TIME.
--- NOTE | 2018-08-11 01:00 | NUR ---
MADE ROUNDS. AWAKE. REQUESTED FOR SOME JUICE AND JELLO. TOLERATED WELL. WILL BE FULL LIQUID AT BREAKFAST.
[2018-08-11] MEDS: HYDROcodone/APAP 5/325 MG 1 TAB TAB PO PRN ×5 (01:49→23:19)
--- NOTE | 2018-08-11 03:30 | NUR ---
PT SLEEPING. NO S/S OF ANY DISCOMFORT NOTED.
[2018-08-11 04:52] VITALS: BP 110/78
[2018-08-11] MEDS: DEXT 5% / NACL 0.45% 1,000 ML IV SCH ×2 (05:18→12:56)
--- NOTE | 2018-08-11 06:00 | NUR ---
C/O POST OP PAIN . 11/17 . WILL MEDICATE WITH NORCO ORDERED.
[2018-08-11 06:40] LABS: BASOPHILS % (AUTO) 0.6 % (0.0-2.0); EOSINOPHILS # (AUTO) 0.1 K/uL (0-0.4); EOSINOPHILS % (AUTO) 1.3 % (0.0-4.0); HEMATOCRIT 34.6 % (36-48); HEMOGLOBIN 11.3 g/dL (12.0-16.0); LYMPHOCYTES % (AUTO) 30.8 % (20.5-51.1); MEAN CORPUSCULAR HEMOGLOBIN 29 pg (27-31); MEAN CORPUSCULAR HGB CONC 33 g/dL (33-37); MEAN CORPUSCULAR VOLUME 88.1 fL (80-94); MONOCYTES # (AUTO) 1.1 K/uL (0.8-1.0); MONOCYTES % (AUTO) 16.7 % (1.7-9.3); NEUTROPHILS # (AUTO) 3.3 K/uL (1.8-7.7); NEUTROPHILS % (AUTO) 50.6 % (42.2-75.2); PLATELET COUNT (AUTO) 202 K/uL (140-450); RED BLOOD CELL COUNT(AUTO) 3.93 MIL/uL (4.20-5.40); RED CELL DISTRIBUTION WIDTH 13.5 % (11.6-13.7); WHITE BLOOD COUNT (AUTO) 6.5 K/uL (4.8-10.8)
[2018-08-11 06:41] LABS: ANION GAP 9.4 (8-16); CARBON DIOXIDE 28.8 mmol/L (21-32); CREATININE 0.9 mg/dL (0.6-1.3); MAGNESIUM 1.7 mg/dL (1.8-2.4); PHOSPHORUS 3.5 mg/dL (2.5-4.9); POTASSIUM 3.2 mmol/L (3.5-5.1)
--- NOTE | 2018-08-11 07:35 | NUR ---
RECEIVED REPORT FROM BASKET OPERATOR NURSE. PATIENT LYING DOWN IN BED SLEEPING, AROUSABLE BY VOICE. NO DISTRESS NOTED. PAIN WITHIN TOLERABLE AT THIS TIME. AAOX4, CALM, COOPERATIVE, SKIN COLOR APPROPRIATE TO ETHNICITY, WARM TO TOUCH. HAS RIGHT S/P INGUINAL HERNIA REPAIR ON 08/10/18, DRESSING IS DRY AND INTACT. ABDOMEN SOFT, NON-DISTENDED. IV SITE INTACT, PATENT, AND INFUSING IVF PER MD ORDERS. SAFETY MEASURES IN PLACE, CALL LIGHT WITHIN REACH. WILL CONTINUE TO MONITOR.
[2018-08-11 08:00] VITALS: BP 148/68
[2018-08-11] MEDS: CARVEDILOL 6.25 MG TAB PO SCH ×2 (09:02→20:37)
[2018-08-11] MEDS: LACTOBACILLUS RHAMNOSUS GG 1 EACH CAP PO SCH (09:02)
[2018-08-11] MEDS: ASPIRIN 81 MG TAB.CHEW PO SCH (09:02)
[2018-08-11] MEDS: SPIRONOLACTONE 25 MG TAB PO SCH (09:02)
[2018-08-11] MEDS: FUROSEMIDE 20 MG TAB PO SCH ×2 (09:03→20:37)
[2018-08-11] MEDS: LACTULOSE 20 GM/30 ML UDC PO SCH ×3 (09:03→16:10)
--- NOTE | 2018-08-11 09:07 | NUR ---
PATIENT SITTING IN BED WITH COMPLAINTS OF NAUSEA, ZOFRAN GIVEN. OTHER SCHEDULED MEDICATIONS DUE GIVEN. WILL CONTINUE TO MONITOR.
[2018-08-11] MEDS ORDERED: INFLUENZA VIRUS VACCINE QUAD 0.5 ML SYR IMVAC PRN (10:00)
[2018-08-11] MEDS ORDERED: PNEUMOCOCCAL VACCINE 23 MCG/0.5 ML VIAL IMVAC SCH (10:00)
[2018-08-11] MEDS ORDERED: POTASSIUM CHLORIDE 10 MEQ TABER PO SCH ×2 (11:00→15:00)
[2018-08-11 12:00] VITALS: BP 124/85
[2018-08-11] MEDS ORDERED: NACL 0.9% 1,000 ML IV SCH (12:50)
[2018-08-11] MEDS: SIMETHICONE 80 MG TAB.CHEW PO PRN ×3 (12:55→19:44)
--- NOTE | 2018-08-11 12:59 | NUR ---
PATIENT SITTING IN BED TALKING WITH FAMILY MEMBERS AT BEDSIDE. NO DISTRESS NOTED. PAIN WITHIN TOLERABLE. SCHEDULED MEDICATIONS DUE GIVEN. WILL CONTINUE TO MONITOR.
[2018-08-11 16:00] VITALS: BP 116/72
--- NOTE | 2018-08-11 16:00 | NUR ---
PATIENT LYING DOWN IN BED SLEEPING, AROUSABLE BY VOICE. NO DISTRESS NOTED. CONDITION UNCHANGED. PAIN WITHIN TOLERABLE. WILL CONTINUE TO MONITOR.
--- NOTE | 2018-08-11 18:00 | NUR ---
PATIENT SITTING IN BED WITH DINNER TRAY IN FRONT. PAIN WITHIN TOLERABLE. WILL CONTINUE TO MONITOR.
--- NOTE | 2018-08-11 19:22 | NUR ---
GAVE REPORT TO SECONDARY ENGLISH TEACHER NURSE FOR CONTINUITY OF CARE. PATIENT IN STABLE CONDITION.
--- NOTE | 2018-08-11 19:23 | NUR ---
RECEIVED PT SLEEPING, EASILY AROUSABLE, AAOX4, VITAL SIGNS STABLE, COMPLAINING OF PAIN, OFFERED NORCO BUT PT PREFER MYLICON FOR GAS PAIN, WILL MEDICATE PRN, DRESSING TO RT LOWE ABDOMEN DRY AND INTACT, VERBALIZED PASSING GAS, TOLERATING REGULAR DIET, DENIES N/V NOTED, IVF INFUSING WELL, PLAN OF CARE DISCUSSED, SAFETY MEASURES IN PLACE, CALL LIGHT WITHIN REACH.
[2018-08-11 20:00] VITALS: BP 110/61
[2018-08-11] MEDS: MAGNESIUM OXIDE 400 MG TAB PO SCH (20:38)
[2018-08-11] MEDS: ATORVASTATIN 20 MG TAB PO SCH (20:38)
--- NOTE | 2018-08-11 22:10 | NUR ---
PT USES BEDSIDE COMMODE INDEPENDENTLY AND VOIDED FREELY, ALL NEEDS ATTENDED.
--- NOTE | 2018-08-11 23:30 | NUR ---
PT AWAKE COMPLAINING OF ABDOMINAL PAIN, VITAL SIGNS STABLE, MEDICATED PRN WITH NORCO, ABDOMINAL DRESSING DRY AND INTACT, CONTINUE TO MONITOR CLOSELY.
[2018-08-12] VITALS: BP 122/81
[2018-08-12 04:00] VITALS: BP 125/86
[2018-08-12] MEDS: HYDROcodone/APAP 5/325 MG 1 TAB TAB PO PRN (04:14)
--- NOTE | 2018-08-12 04:15 | NUR ---
PT COMPLAINING OF PAIN, VITAL SIGNS STABLE, MEDICATED WITH NORCO, DUE ROCEPHIN IVPB ADMINISTERED, MONITORED CLOSELY.
[2018-08-12] MEDS: SIMETHICONE 80 MG TAB.CHEW PO PRN ×2 (06:21→12:41)
--- NOTE | 2018-08-12 06:21 | NUR ---
MEDICATED WITH MYLICON FOR GAS PAIN, PT REQUESTING TO SPEAK WITH DR BEE, MONITORED CLOSELY.
[2018-08-12] MEDS: HYDROcodone/APAP 10/325 MG 1 TAB TAB PO PRN ×2 (06:32→12:41)
--- NOTE | 2018-08-12 06:32 | NUR ---
DR BEE STATED MELANY TO GIVE EARLY THE NEXT DUE NORCO, NORCO 10/325 MG PO GIVEN FOR ABDOMINAL PAIN, ABDOMINAL DRESSING DRY AND INTACT, PT STATED PASSING GAS, NO N/V NOTED, MONITORED CLOSELY.
[2018-08-12 06:36] LABS: BASOPHILS % (AUTO) 0.4 % (0.0-2.0); EOSINOPHILS # (AUTO) 0.1 K/uL (0-0.4); HEMATOCRIT 32.5 % (36-48); HEMOGLOBIN 10.7 g/dL (12.0-16.0); LYMPHOCYTES # (AUTO) 1.5 K/uL (2.5-16.5); LYMPHOCYTES % (AUTO) 21.5 % (20.5-51.1); MEAN CORPUSCULAR HEMOGLOBIN 29 pg (27-31); MEAN CORPUSCULAR HGB CONC 33 g/dL (33-37); MEAN CORPUSCULAR VOLUME 88.8 fL (80-94); MONOCYTES # (AUTO) 1.1 K/uL (0.8-1.0); MONOCYTES % (AUTO) 16.2 % (1.7-9.3); NEUTROPHILS # (AUTO) 4.2 K/uL (1.8-7.7); NEUTROPHILS % (AUTO) 60.9 % (42.2-75.2); PLATELET COUNT (AUTO) 194 K/uL (140-450); RED BLOOD CELL COUNT(AUTO) 3.66 MIL/uL (4.20-5.40); RED CELL DISTRIBUTION WIDTH 13.4 % (11.6-13.7); WHITE BLOOD COUNT (AUTO) 6.8 K/uL (4.8-10.8)
[2018-08-12 06:53] LABS: ANION GAP 9.2 (8-16); CARBON DIOXIDE 28.5 mmol/L (21-32); CREATININE 0.8 mg/dL (0.6-1.3); POTASSIUM 3.7 mmol/L (3.5-5.1)
[2018-08-12] MEDS ORDERED: CARV6.252 PO (06:56)
[2018-08-12] MEDS ORDERED: ATOR20TA40 PO (06:56)
[2018-08-12] MEDS ORDERED: SIME80CT27 PO (06:56)
[2018-08-12] MEDS ORDERED: ASPI81CT95 PO (06:56)
[2018-08-12] MEDS ORDERED: NORC10 PO (06:56)
[2018-08-12] MEDS ORDERED: SPIR25TA PO (06:56)
[2018-08-12] MEDS ORDERED: FURO20TA8 PO (06:56)
[2018-08-12] MEDS ORDERED: DOCU-299 PO (06:56)
[2018-08-12 06:58] LABS: MAGNESIUM 1.7 mg/dL (1.8-2.4); PHOSPHORUS 3.2 mg/dL (2.5-4.9)
--- NOTE | 2018-08-12 07:15 | NUR ---
PT SLEEPING, EASILY AROUSABLE, NO DISTRESS NOTED, REPORT GIVEN TO AYLIN ANDREWS FOR CONTINUITY OF CARE.
--- NOTE | 2018-08-12 07:15 | NUR ---
RECEIVED REPORT FROM SECRETARY BOOK KEEPER NURSE. PT IN STABLE CONDITION. RESPIRATION EVEN AND UNLABORED. IV INTACT AND PATENT. SAFETY MEASURES IN PLACE. BED IN LOW POSITION, CALL LIGHT AT BEDSIDE, BED ALARM ON. WILL CONTINUE TO MONITOR.
[2018-08-12 08:00] VITALS: BP 136/99
[2018-08-12] MEDS: MAGNESIUM OXIDE 400 MG TAB PO SCH (08:54)
[2018-08-12] MEDS: CARVEDILOL 6.25 MG TAB PO SCH (08:54)
[2018-08-12] MEDS: ASPIRIN 81 MG TAB.CHEW PO SCH (08:56)
[2018-08-12] MEDS: FUROSEMIDE 20 MG TAB PO SCH (08:56)
[2018-08-12] MEDS: SPIRONOLACTONE 25 MG TAB PO SCH (08:56)
[2018-08-12] MEDS: LACTOBACILLUS RHAMNOSUS GG 1 EACH CAP PO SCH (08:57)
[2018-08-12] MEDS: LACTULOSE 20 GM/30 ML UDC PO SCH (08:58)
--- NOTE | 2018-08-12 09:10 | NUR ---
CALLED [facility] AND SPOKE WITH DMITRIY, . SHE SAID FOR DME AND HOME HEALTH, THEY ARE OPEN ACCESS AND DO NOT HAVE A LIST TO CONTACT. FAXED ORDER FOR FWW TO [facility] [phone] FAXED ORDER FOR HOME HEALTH FOR P.T TO [facility] [phone]
--- NOTE | 2018-08-12 09:10 | NUR ---
GAVE ORDERED MEDICATIONS AT THIS TIME. PT TOLERATED WELL. PT IN STABLE CONDITION. RESPIRATIONS EVEN AND UNLABORED. BED IN LOW POSITION. CALL LIGHT AT BEDSIDE. BED ALARM ON. WILL CONTINUE TO MONITOR.
--- NOTE | 2018-08-12 11:17 | NUR ---
RECEIVED A CALL FROM DEBORAH FROM [facility]. THEY CANNOT GET THE FWW, NO CONTRACT. HE SUGGESTS [facility]ON[facility], CALLED [facility], , AND SPOKE WITH ALLEN. SHE SAID TO FAX ORDER AND FACE SHEET TO [phone], WHICH I DID.
--- NOTE | 2018-08-12 11:30 | NUR ---
PT IN STABLE CONDITION. FAMILY MEMBER AT BEDSIDE. RESPIRATIONS EVEN AND UNLABORED. BED IN LOW POSITION. CALL LIGHT AT BEDSIDE. BED ALARM ON. WILL CONTINUE TO MONITOR.
--- NOTE | 2018-08-12 11:39 | NUR ---
FAXED INQUIRY FOR FWW TO [facility], PHONE [phone] FAXED FACE SHEET FOR P.T. TO [facility], PHONE [phone]
--- NOTE | 2018-08-12 11:55 | NUR ---
RECEIVED A CALL FROM KIRT AT [facility]. SHE SAID THAT THEY ARE UNABLE TO TAKE THIS PATIENT DUE TO EXCESSIVE DOCUMENTATION REQUIRED BY GIANNI.
--- NOTE | 2018-08-12 12:57 | NUR ---
SPOKE WITH BOGDAN FROM [facility]. THEY WILL BE ABLE TO GET A FWW DELIVERED TO THE PATIENT'S HOME. VERIFIED ADDRESS, [address] [place] [address]. PHONE [phone]. I CANCELED REQUEST FOR FWW FROM [facility].
--- NOTE | 2018-08-12 13:00 | NUR ---
GAVE DISCHARGE INSTRUCTIONS AND INFORMED PT TO ESTHETICIAN AND MANAGER MEDICAL SPA MEDICATIONS FROM HOME PHARMACY, PT VERBALIZED UNDERSTANDING OF INSTRUCTIONS. IV REMOVED, LUMEN INTACT. ID BAND REMOVED.TAXI VOUCHER GIVEN. PT WHEELED IN WHEELCHAIR TO LOBBY WHERE TAXI WAS WAITING.
--- NOTE | 2018-08-12 13:33 | NUR ---
SPOKE WITH PIETRO FROM [facility], . SHE SAID THEY WILL BE ABLE TO TAKE THE PATIENT, STARTING SATURDAY OR SATURDAY. SHE ASKED ME TO FAX THE H&P, ORDER, P.T. NOTES AND MED SHEETS, WHICH I DID , TO HER AT [phone].
== END 2018-08-12 13:00 | disposition home health service (06) | DRG 350 ==
LOC: MED 02:03 → MTU 03:46
PROVIDERS: ADMIT General Practice; ATTEND General Practice
PROC: 0YU50JZ Supplement Right Inguinal Region with Synthetic Substitute, Open Approach (ICD-10-PCS; principal; 2018-08-10 14:15)
DX: K40.30 Unilateral inguinal hernia, with obstruction, without gangrene, not specified as recurrent (principal); I21.A1 Myocardial infarction type 2; N39.0 Urinary tract infection, site not specified; E44.1 Mild protein-calorie malnutrition; E72.20 Disorder of urea cycle metabolism, unspecified; E87.6 Hypokalemia; E83.42 Hypomagnesemia; I11.0 Hypertensive heart disease with heart failure; I50.9 Heart failure, unspecified; F12.10 Cannabis abuse, uncomplicated; E78.5 Hyperlipidemia, unspecified; Z88.0 Allergy status to penicillin; Z68.27 Body mass index [BMI] 27.0-27.9, adult; Z88.8 Allergy status to other drugs, medicaments and biological substances; Z86.73 Personal history of transient ischemic attack (TIA), and cerebral infarction without residual deficits
CPT/HCPCS: 36415; 70450; 71045; 74018; 80048; 80053; 80305; 81001; 82140; 82150; 83036; 83605; 83690; 83735; 83880; 84100; 84436; 84443; 84484; 85025; 85610; 85730; 86886; 86900; 86901; 87040; 87081; 87086; 93005; 96365; 96375; 97110; 97116; 97530; 99285; C1781; J0330; J0690; J0696; J1100; J1644; J1885; J1956; J2060; J2175; J2250; J2270; J2405; J2704; J3010; J3490; J7030; J7060; Q0092

== ENCOUNTER 2018-08-16 05:10 | Emergency (ER) | payer OTHER ==
[~2018-08-16] VITALS: Ht 157.5 cm; Wt 65.8 kg
[2018-08-16 05:10] VITALS: BP 148/82
[~2018-08-16 05:10] MED LIST changes: +ASPI81CT95 PO; +ATOR20TA40 PO; +CARV6.252 PO; +DOCU-299 PO; +FURO20TA8 PO; -METO25TA14; -NAPR250T1 PO; +NORC10 PO; +SIME80CT27 PO; -SIMV20TA1 PO; +SPIR25TA PO; -VIC PO
--- NOTE | 2018-08-16 05:12 | NUR ---
PT BIBA TO BED 10.
--- NOTE | 2018-08-16 05:19 | NUR ---
BIBA FROM HOME FOR SURGICAL SITE PAIN, RECENT HERNIA REPAIR (08/12/18). -REDNESS, -SWELLING, -DRAINAGE, WELL APPROXIMATED. PT REPORTS SOFT BOWEL MOVEMENT, DENIES CONSTIPATION, DIARRHEA, OR FEVER. PT STATES SHE WAS NAUSEAS EARLIER TODAY. VSS. ER MD TO SEE PT. HX HERNIA REPAIR, HTN, GERD
[2018-08-16] MEDS ORDERED: fentaNYL 0.05 MG/ML VIAL IM ONE ×2 (05:35→06:30)
--- NOTE | 2018-08-16 05:47 | NUR ---
PT GOING TO X-RAY AT THIS TIME.
[2018-08-16 06:43] VITALS: BP 137/92
--- NOTE | 2018-08-16 06:45 | NUR ---
Patient discharged with v/s stable. Written and verbal after care instructions given and explained. Patient alert, oriented and verbalized understanding of instructions. Ambulatory with steady gait. All questions addressed prior to discharge. ID band removed. Patient advised to follow up with PMD. Rx of SENOKOT AND TRAMADOL given. Patient educated on indication of medication including possible reaction and side effects. Opportunity to ask questions provided and answered.
== END 2018-08-16 06:45 | disposition home or self-care (01) ==
LOC: MED 05:10
DX: G89.18 Other acute postprocedural pain (principal); K59.00 Constipation, unspecified; R11.2 Nausea with vomiting, unspecified; K21.9 Gastro-esophageal reflux disease without esophagitis; I10 Essential (primary) hypertension; Z86.73 Personal history of transient ischemic attack (TIA), and cerebral infarction without residual deficits; Z88.0 Allergy status to penicillin; Z88.8 Allergy status to other drugs, medicaments and biological substances; Z98.890 Other specified postprocedural states; Z79.82 Long term (current) use of aspirin; Z79.891 Long term (current) use of opiate analgesic; Z79.899 Other long term (current) drug therapy
CPT/HCPCS: 74022; 96372; 99283; J3010

== ENCOUNTER 2018-08-20 23:19 | Inpatient (IN) | payer OTHER ==
[~2018-08-20] VITALS: Ht 157.5 cm; Wt 68.0 kg
[2018-08-20 23:25] VITALS: BP 152/88
--- NOTE | 2018-08-20 23:30 | NUR ---
PT WHEEL CHAIR ASSISTED TO LOBBY WITH VSS. ACCOMPANIED BY DAUGHTER.
--- NOTE | 2018-08-20 23:52 | NUR ---
PT RETURN TO ER SIMONE[facility] FROM XRAY
[2018-08-21 00:20] LABS: APPEARANCE,URINE CLEAR (CLEAR); BILIRUBIN,URINE NEGATIVE (NEGATIVE); BLOOD, URINE 1+ (NEGATIVE); COLOR,URINE YELLOW (YELLOW); LEUKOCYTE ESTERASE ,URINE NEGATIVE (NEGATIVE); NITRITE, URINE NEGATIVE (NEGATIVE); PH,URINE 7.5 (5.0-9.0); UGLUCOSE NEGATIVE (NEGATIVE)
[2018-08-21 00:23] LABS: BASOPHILS # (AUTO) 0.1 K/uL (0.00-0.22); BASOPHILS % (AUTO) 1.1 % (0.0-2.0); EOSINOPHILS # (AUTO) 0.1 K/uL (0-0.4); HEMATOCRIT 36.4 % (36-48); HEMOGLOBIN 11.9 g/dL (12.0-16.0); LYMPHOCYTES # (AUTO) 2.8 K/uL (2.5-16.5); LYMPHOCYTES % (AUTO) 39.8 % (20.5-51.1); MEAN CORPUSCULAR HEMOGLOBIN 28 pg (27-31); MEAN CORPUSCULAR HGB CONC 33 g/dL (33-37); MEAN CORPUSCULAR VOLUME 86.9 fL (80-94); MONOCYTES # (AUTO) 0.8 K/uL (0.8-1.0); MONOCYTES % (AUTO) 10.9 % (1.7-9.3); NEUTROPHILS # (AUTO) 3.2 K/uL (1.8-7.7); NEUTROPHILS % (AUTO) 46.2 % (42.2-75.2); PLATELET COUNT (AUTO) 409 K/uL (140-450); RED BLOOD CELL COUNT(AUTO) 4.19 MIL/uL (4.20-5.40); RED CELL DISTRIBUTION WIDTH 13.3 % (11.6-13.7)
[2018-08-21 00:29] LABS: ANION GAP 14.4 (8-16); CREATININE 0.8 mg/dL (0.6-1.3); POTASSIUM 3.4 mmol/L (3.5-5.1)
[2018-08-21 00:31] LABS: RBC,URINE 0-5 /HPF (0-5); WBC,URINE NONE SEEN /HPF (0-5)
[2018-08-21 00:35] LABS: ALBUMIN 3.2 g/dL (3.4-5.0); TOTAL BILIRUBIN 0.2 mg/dL (0.0-1.0)
--- NOTE | 2018-08-21 01:01 | NUR ---
PT W/C ASSISTED TO ER BED 1
[2018-08-21] MEDS ORDERED: MORPHINE SULFATE 4 MG/ML SYR IVP ONE ×2 (01:15→02:20)
--- NOTE | 2018-08-21 01:29 | NUR ---
PT PRESENTS TO ED FOR SX SITE PAIN. PT STATES HERNIA SX ON 08/10/18. STATES 10/10 PAIN PAST NINE DAYS. RIGHT SIDE OF PELVIS. STERI STRIPS INTACT. WELL APPROXIMATED. NO DRAINAGE. AFEBRILE. AAO X4, GCS 15, ABLE TO SPEAK WITH FULL COMPLETE SENTENCES. RESPIATIONS EVEN AND UNLABORED, BL LUNG CLEAR. SKIN WARM/PINK/DRY, +PMSC. ABDOMEN FLAT, FIRM, DISTENDED, HYPERACTIVE BOWEL SOUND X4. RLQ ABDOMEN SX SITE, CEAN AND DRY, STERILE STRIPS INTACT, NO DRAINAGE. VSS, PAIN 10/10. PAIN MED GIVEN ORDERED. DR. QUIROS MADE AWARE OF PT STATUS. WILL CONTINE TO MONITOR
--- NOTE | 2018-08-21 02:07 | NUR ---
Dr. Barr evaluating patient at bedside.
[2018-08-21] MEDS ORDERED: NACL 0.9% 1,000 ML IV SCH (02:24)
[2018-08-21] MEDS ORDERED: ONDANSETRON 4 MG/2 ML VIAL IM/IVP PRN (02:25)
[2018-08-21] MEDS ORDERED: ACETAMINOPHEN 325 MG TAB PO PRN (02:25)
[2018-08-21] MEDS ORDERED: DOCUSATE SODIUM 100 MG GELCAP PO PRN ×3 (02:25→07:27)
--- NOTE | 2018-08-21 02:45 | NUR ---
Patient will be admitted to care of . Admited to MED/SURGE. Will go to room. Belongings list completed. Report to IRMA VIERA.
[2018-08-21 02:56] LABS: PROTHROMBIN TIME 9.7 secs (10.8-13.4)
[2018-08-21 02:57] LABS: BARBITURATE, URINE NEG. ng/ml (NEG <=200); BENZODIAZEPINE, URINE NEG. ng/mL (NEG <=200); CANNABINOID, URINE POS. ng/mL (NEG <=50); COCAINE, URINE NEG. ng/mL (NEG <=300); OPIATE, URINE NEG. ng/mL (NEG <=2000); PHENCYCLIDINE SCREEN,URINE NEG. ng/mL (NEG <=25)
--- NOTE | 2018-08-21 03:00 | NUR ---
RECEIVED FROM ER PT, WITH R ABDOMINAL PAIN, S/P HERNIORRHAPHY LAST 08/10/18 FOR RIGHT INGUINAL AREA. PT AWAKE, A,O X 4. MS PT. PT AMBULATORY WITH ASSISTANCE. PICTURE TAKEN OF RIGHT INGUINAL WOUND, STILL WITH STERILE TAPES INTACT. ASSESSMENT DONE. INTERVIEWED PT WITH . POC REVIEWED. PT PLACED IN THE LOWEST BED POSITIONED. ORIENTED TO UNIT. CALL LIGHT PLACED WITHIN EASY REACH.WILL CONTINUE TO MONITOR
[2018-08-21 03:06] LABS: CHOL/HDL RATIO 2.1 (1-4.5); MAGNESIUM 1.8 mg/dL (1.8-2.4); PHOSPHORUS 2.9 mg/dL (2.5-4.9); THYROID STIMULATING HORMONE 0.63 uIU/mL (0.34-3.74)
[2018-08-21] MEDS ORDERED: SIMETHICONE 80 MG TAB.CHEW PO PRN (03:30)
[2018-08-21 04:00] VITALS: BP 132/78
--- NOTE | 2018-08-21 04:20 | NUR ---
INSERTED NGT ON LOW INT. SUCTION, WITH CHARGE NURSE'S HELP. PT TOLERATED PROCEDURE. INFORMED DR. SOLIMAN FOR XRAY OF THE NGT PLACEMENT.
[2018-08-21] MEDS: DEXT 5% /NACL 0.9% 1,000 ML IV SCH (04:46)
--- NOTE | 2018-08-21 05:00 | NUR ---
XRAY CAME TO CHECK NGT PLACEMENT
--- NOTE | 2018-08-21 07:10 | NUR ---
RECEIVED REPORT FROM PM NURSE AT BED-SIDE. PT HAS NGT ON HER LFT NARES. X-RAY DUE TO CONFIRM THE PLACEMENT. PH HAS LFT ARM IV ACCESS 18 G. IVF D5 NS INFUSING WELL. CALL LIGHT WITHIN OPT REACH. INTRODUCED SELF AND UPDATED BOARD. INFORM HER TO USE CALL LIGHT FOR ANY HELP. NO SIGN OF DISTRESS NOTED AT THIS TIME. WILL CONTINUE TO MONITOR PT.
--- NOTE | 2018-08-21 07:15 | NUR ---
AWAITING 2ND CHEST X-RAY FOR NGT PLACEMENT. WILL ENDORSE TO NEXT SHIFT TO FF. UP RESULT
--- NOTE | 2018-08-21 07:20 | NUR ---
ENDORSED TO NEXT SHIFT NURSE W/ NGT . IN STABLE CONDITION
[2018-08-21 08:00] VITALS: BP 123/83
--- NOTE | 2018-08-21 08:15 | NUR ---
PATIENT HAS BEEN SCREENED AND CATEGORIZED MODERATE NUTRITION RISK. PATIENT WILL BE SEEN WITHIN 3-5 DAYS OF ADMISSION. 08/23/18KAMINI GONZALEZ RD
--- NOTE | 2018-08-21 08:50 | NUR ---
XR TECH AT BEDSIDE. ADMINISTERED CONTRAST TO PT VIA NG TUBE. PER XR TECH, GNT NOT TO BE FLUSHED WITH WATER CONTARST GIVEN . NOTIFIED. AM MEDS OKAY TO BE ON HOLD. TO GIVE IV MEDS ONLY AT THIS TIME. NO SIGN OF DISTRESS NOTED. SUCTIONED OFF. WILL CONTINUE TO MONITOR PT.
[2018-08-21] MEDS: SPIRONOLACTONE 25 MG TAB PO SCH (09:00)
[2018-08-21] MEDS: ASPIRIN 81 MG TAB.CHEW PO SCH (09:00)
[2018-08-21] MEDS: CARVEDILOL 6.25 MG TAB PO SCH ×2 (09:00→20:32)
[2018-08-21] MEDS ORDERED: FUROSEMIDE 20 MG TAB PO SCH (09:00)
[2018-08-21] MEDS ORDERED: KCL 20 MEQ/WATER INJ PREMIX 100 ML IV SCH (10:00)
[2018-08-21] MEDS: MORPHINE SULFATE 2 MG/ML SYR IVP PRN ×3 (10:08→20:32)
[2018-08-21] MEDS: FUROSEMIDE 40 MG/4 ML VIAL IVP SCH ×2 (10:08→16:45)
--- NOTE | 2018-08-21 10:31 | NUR ---
ADMINISTERED MEDS TO PT ORDERED. REPOSITIONED PT. TAPED HER NG TUBE ON HER CLOTHES. ADMINISTERED IV MEDS FOR HER PAIN AND WATER RETENTION. FAMILY MEMBER AT BEDSIDE. INFORMED TO USE CALL LIGHT FOR ANY HELP. WILL CONTINUE TO MONITOR PT.
[2018-08-21 16:00] VITALS: BP 132/83
--- NOTE | 2018-08-21 16:12 | NUR ---
DISCONTINUED NGT ASD PER MD ORDER. NO OUTPUT COLLECTED IN THE CONTAINER. PT TOLERATED WELL. EXPLAINED PT THAT SHE IS STIL NPO EXCEPT MEDS.WILL CONTINUE TO MONITOR PT.
--- NOTE | 2018-08-21 18:00 | NUR ---
CHECKED ON PT. FAMILY AT BEDSIDE. ASKING WHAT TIME MD WILL VISIT. INFORMED PT THAT WILL LET LET KNOW SOON MD VISIT THE HOSPITAL. PT AYN ASKING IF HE CAN BE CALLED AFTER MD VISIT THE PT. PH # [phone]. INFORMED WILL DO AND PASS INFORMATION TO PM NURSE WELL.
--- NOTE | 2018-08-21 19:20 | NUR ---
ENDORSED PT TO PM NURSE AT BEDSIDE. PT STABLE AT BEDSIDE.
--- NOTE | 2018-08-21 19:30 | NUR ---
ASSUMED CARE OF PATIENT, AWAKE, ALERT AND ORIENTED. NO COMPLAINS. STABLE CONDITION. CALL LIGHT WITHIN REACH. NPO X MEDS.
--- NOTE | 2018-08-21 20:00 | NUR ---
CARE BOARD UPDATED. FAMILY AT BEDSIDE. NO COMPLAINS. PLAN OF CARE DISCUSSED WITH PATIENT AND FAMILY MEMBER, VERBALIZED UNDERSTANDING WELL. CALL LIGHT WITHIN REACH.
[2018-08-21] MEDS: ATORVASTATIN 20 MG TAB PO SCH (20:32)
[2018-08-22 00:06] VITALS: BP 132/92
--- NOTE | 2018-08-22 00:26 | NUR ---
ASLEEP. VITAL SIGNS STABLE. NO COMPLAINS. CALL LIGHT WITHIN REACH. AFEBRILE.
[2018-08-22] MEDS: MORPHINE SULFATE 2 MG/ML SYR IVP PRN ×5 (01:21→18:27)
[2018-08-22] MEDS: DEXT 5% /NACL 0.9% 1,000 ML IV SCH (04:00)
--- NOTE | 2018-08-22 04:48 | NUR ---
PAIN MEDS GIVEN ORDERED. NO DISTRESS. CALL LIGHT WITHIN REACH.
[2018-08-22 06:49] LABS: ANION GAP 13.9 (8-16); CARBON DIOXIDE 26.5 mmol/L (21-32); CREATININE 0.9 mg/dL (0.6-1.3); POTASSIUM 3.4 mmol/L (3.5-5.1)
[2018-08-22 07:02] LABS: MAGNESIUM 1.9 mg/dL (1.8-2.4); PHOSPHORUS 3.5 mg/dL (2.5-4.9)
[2018-08-22 07:12] LABS: BASOPHILS % (AUTO) 0.8 % (0.0-2.0); EOSINOPHILS # (AUTO) 0.1 K/uL (0-0.4); EOSINOPHILS % (AUTO) 1.2 % (0.0-4.0); HEMATOCRIT 35.1 % (36-48); HEMOGLOBIN 11.7 g/dL (12.0-16.0); LYMPHOCYTES % (AUTO) 38.4 % (20.5-51.1); MEAN CORPUSCULAR HEMOGLOBIN 29 pg (27-31); MEAN CORPUSCULAR HGB CONC 33 g/dL (33-37); MONOCYTES # (AUTO) 0.7 K/uL (0.8-1.0); MONOCYTES % (AUTO) 13.2 % (1.7-9.3); NEUTROPHILS # (AUTO) 2.4 K/uL (1.8-7.7); NEUTROPHILS % (AUTO) 46.4 % (42.2-75.2); PLATELET COUNT (AUTO) 388 K/uL (140-450); RED BLOOD CELL COUNT(AUTO) 3.99 MIL/uL (4.20-5.40); RED CELL DISTRIBUTION WIDTH 13.3 % (11.6-13.7); WHITE BLOOD COUNT (AUTO) 5.3 K/uL (4.8-10.8)
--- NOTE | 2018-08-22 07:20 | NUR ---
ENDORSED CARE AT BEDSIDE WITH QI RN, PATIENT IN STABLE CONDITION.
--- NOTE | 2018-08-22 07:21 | NUR ---
RECEIVED REPORT FROM PM NURSE AT BEDSIDE. PT SLEEPING AT THIS TIME. PT TO BE SEEN BY DR. GUERRA. PT ON CLEAR LIQUID DIET AT THIS TIME. WILL CONTINUE TO MONITOR PT.
[2018-08-22 08:00] VITALS: BP 123/88
[2018-08-22] MEDS: FUROSEMIDE 40 MG/4 ML VIAL IVP SCH ×2 (09:57→17:57)
[2018-08-22] MEDS: CARVEDILOL 6.25 MG TAB PO SCH ×2 (09:57→21:00)
[2018-08-22] MEDS: ASPIRIN 81 MG TAB.CHEW PO SCH (09:57)
[2018-08-22] MEDS: SPIRONOLACTONE 25 MG TAB PO SCH (09:58)
--- NOTE | 2018-08-22 10:04 | NUR ---
ADMINISTERED MEDS TO PT ORDERED. TOLERATED WELL. NO SIGN OF DISTRESS. ADMINISTERED PAIN MEDS FOR HER PAIN. WILL CONTINUE TO MONITOR PT.
--- NOTE | 2018-08-22 14:30 | NUR ---
CHECKED ON PT. LYING ON HER BED COMFORTABLY. FAMILY AT BEDSIDE. PT WOUND CLEANED AND PLACED STERI STRIP. NO DTRESS NOTED. WAITING ON MALIGNI. WILL CONTINUE TO MONITOR PT.
[2018-08-22 16:00] VITALS: BP 108/65
--- NOTE | 2018-08-22 17:30 | NUR ---
DR BROWN SAW THE PT. RESIDENT AT BEDSIDE. PT TO GET HIGHER LEVEL OF CARE. PT TO BE DISCHARGED HOME WITH PAIN MEDS AND FOLLOW WITH DR. TREADWELL ON SATURDAY UPON DISCHARGE. PT VERBALIZED UNDERSTANDING OF TEACHING. ADMINISTER LASIX. PT TO STAY TODAY. ADVANCED TO FULL LIQUID DIET , TO ADVANCE DIET TOLERATED. WILL CONTINUE TO MONITOR PT.
--- NOTE | 2018-08-22 19:15 | NUR ---
ENDORSED PT TO PM NURSE AT BEDSIDE. PT IS TABLE.
--- NOTE | 2018-08-22 19:16 | NUR ---
RECD. RESTING IN BED, AWAKE, A/OX4. RESPIRATION EVEN AND UNLABORED. IV SALINE LOCK AT THE LEFT FOREARM G18, PATENT AND INTACT. AMBULATORY TO THE BATHROOM. INCISION IN THE INGUINAL AREA WITH STERI STRIPS DRY AND INTACT. PLAN OF CARE FOR THE SHIFT DISCUSSED. VERBALIZED UNDERSTANDING. DENIES PAIN 0/10. AT THE BEDSIDE.
[2018-08-22] MEDS: ATORVASTATIN 20 MG TAB PO SCH (21:12)
[2018-08-22] MEDS: HYDROcodone/APAP 7.5/325 MG 1 TAB PO PRN (21:14)
--- NOTE | 2018-08-22 22:00 | NUR ---
STILL AWAKE WATCHING TV. NO COMPLAINT OF PAIN.
--- NOTE | 2018-08-22 23:47 | NUR ---
Patient's Plan of Care was discussed and reviewed with REAL: SAL
[2018-08-23] VITALS: BP 97/60
--- NOTE | 2018-08-23 | NUR ---
SLEEPING COMFORTABLY IN BED. STATED SHE HAD BM THAT IS BLACK. INSTRUCTED TO CALL NURSE WHEN SHE HAD ONE, AND WILL CHECK STOOL.
[2018-08-23] MEDS: HYDROcodone/APAP 7.5/325 MG 1 TAB PO PRN ×5 (01:53→20:31)
[2018-08-23] MEDS: DEXT 5% /NACL 0.9% 1,000 ML IV SCH (04:00)
--- NOTE | 2018-08-23 04:30 | NUR ---
HAD BM, GREENISH BROWN, BLACK, MODERATE AMOUNT. DENIES DIARRHEA.
--- NOTE | 2018-08-23 07:20 | NUR ---
CONDITION REMAIN STABLE. COMPLAINT OF PAIN ATTENDED PROMPTLY, MEDICATED ORDERED. ENDORSED TO AM NURSE FOR CONTINUITY OF CARE.
--- NOTE | 2018-08-23 07:25 | NUR ---
RECEIVED PT FROM AUTISM MOTOR SPECIALIST NURSESAL, PT IS AWAKE AND SEATED ON THE BED WITH SIDE RAILS UP AND CALL LIGHT WITHIN REACH, FALL AND SAFETY PRECAUTION DISCUSSED WITH PT AND PT VERBALIZED UNDERSTANDING, HAS AN IV LINE ON THE LEFT ARM G. 18 ON SALINE LOCK, PATENT, INTACT. PT DENIES SOB AND PAIN, NO SIGN OF DISTRESS NOTED. WILL CONTINUE TO MONITOR PT.
[2018-08-23 07:26] LABS: BASOPHILS % (AUTO) 0.6 % (0.0-2.0); EOSINOPHILS # (AUTO) 0.1 K/uL (0-0.4); EOSINOPHILS % (AUTO) 2.2 % (0.0-4.0); HEMATOCRIT 34.1 % (36-48); HEMOGLOBIN 11.2 g/dL (12.0-16.0); LYMPHOCYTES % (AUTO) 45.5 % (20.5-51.1); MEAN CORPUSCULAR HEMOGLOBIN 29 pg (27-31); MEAN CORPUSCULAR HGB CONC 33 g/dL (33-37); MEAN CORPUSCULAR VOLUME 87.6 fL (80-94); MONOCYTES # (AUTO) 0.6 K/uL (0.8-1.0); MONOCYTES % (AUTO) 13.4 % (1.7-9.3); NEUTROPHILS # (AUTO) 1.7 K/uL (1.8-7.7); NEUTROPHILS % (AUTO) 38.3 % (42.2-75.2); PLATELET COUNT (AUTO) 376 K/uL (140-450); RED CELL DISTRIBUTION WIDTH 13.4 % (11.6-13.7); WHITE BLOOD COUNT (AUTO) 4.4 K/uL (4.8-10.8)
[2018-08-23 07:57] LABS: ANION GAP 15.4 (8-16); CARBON DIOXIDE 27.7 mmol/L (21-32); CREATININE 0.9 mg/dL (0.6-1.3); POTASSIUM 3.1 mmol/L (3.5-5.1)
[2018-08-23 07:59] LABS: MAGNESIUM 1.7 mg/dL (1.8-2.4); PHOSPHORUS 4.4 mg/dL (2.5-4.9)
[2018-08-23 08:00] VITALS: BP 110/77
--- NOTE | 2018-08-23 08:45 | NUR ---
PT IS WITH THE PT AND AMBULATING, NO SOB NOTED, WILL MONITOR PT.
[2018-08-23] MEDS: CARVEDILOL 6.25 MG TAB PO SCH ×2 (08:59→21:45)
[2018-08-23] MEDS: ASPIRIN 81 MG TAB.CHEW PO SCH (09:00)
[2018-08-23] MEDS: FUROSEMIDE 40 MG/4 ML VIAL IVP SCH ×2 (09:00→17:09)
[2018-08-23] MEDS: SPIRONOLACTONE 25 MG TAB PO SCH (09:00)
[2018-08-23] MEDS ORDERED: MAGNESIUM OXIDE 400 MG TAB PO SCH (09:06)
[2018-08-23] MEDS ORDERED: POTASSIUM CHLORIDE 10 MEQ TABER PO SCH (09:06)
--- NOTE | 2018-08-23 09:06 | NUR ---
PT IS AWAKE AND SEATED ON THE CHAIR , ON THE BEDSIDE PT' S VITAL SIGNS TAKEN AND BPM IS 110/77, PULSE IS 77. O2 SATURATION IS 100% AND RESPIRATION IS 18/MIN, ORAL MEDICATIONS WERE GIVEN AND ALSO VIA IV PUSH, PT TOLERATED IT AND NO SIGN OF DISTRESS NOTED. WILL MONITOR PT.
--- NOTE | 2018-08-23 10:01 | NUR ---
PT WAS INFORMED THAT K LEVEL IS 3.1 AND MAGNESIUM LEVEL IS 1.7, ORAL K AND MG SUPPLEMENTS WERE GIVEN AND PT TOLERATED IT. PT TEACHING REGARDING THE IMPORTANCE OF K AND MG IN THE BODY WERE GIVEN TO PT AND PT VERBALIZED UNDERSTANDING. NO SIGN OF DISTRESS NOTED AND WILL MONITOR PT.
[2018-08-23 16:00] VITALS: BP 119/76
--- NOTE | 2018-08-23 17:11 | NUR ---
PT IS AWAKE AND LYING ON THE BED TALKING TO SON ON HER CP, VITAL SIGNS TAKEN AND BP IS 119/76, PULSE IS 70, TEMP. IS 98.2, O2 SATURATION IS 99%, LASIX WAS GIVEN VIA IV PUSH AND PT TOLERATED IT. NO SIGN OF DISTRESS NOTED AND WILL CONTINUE TO MONITOR PT.
--- NOTE | 2018-08-23 19:20 | NUR ---
ENDORSED TP TO INSPECTOR FABRIC NURSE,BETTY FOR CONTINUITY OF CARE. PT IS STABLE AT THIS TIME.
--- NOTE | 2018-08-23 19:25 | NUR ---
RECEIVED PT IN STABLE CONDITION FROM AM NURSE. AWAKE,ALERT AND ORIENTED X4. ON MED SURG. WITH NO C/O ANY PAIN NOR DISCOMFORT AT THIS TIME. HAS IV ACCESS ON LT FA G#18. CLEAR AND PATENT. AMBULATORY. WITH RT INGUINAL INCISIONS S/P HERNIA REPAIR WITH STERI STRIPS. NO REDNESS NOR SWELLING NOTED. PLAN OF CARE DISCUSSED AND VERBALIZED UNDERSTANDING. BED ON LOW POSITION. SIDE RAILS ARE UPX2 AND CALL LIGHT PLACED WITHIN EASY REACH. WILL CONTINUE TO MONITOR.
--- NOTE | 2018-08-23 21:31 | NUR ---
MADE ROUNDS. PT IS AWAKE. BUT NO MORE C/O PAIN NOTED.
[2018-08-23] MEDS: ATORVASTATIN 20 MG TAB PO SCH (21:45)
--- NOTE | 2018-08-23 23:00 | NUR ---
AWAKE. REQUESTED FOR SOME SANDWICH. TOLERATED WELL . NO DISCOMFORT NOTED. WILL CONTINUE TO MONITOR. .
[2018-08-23 23:30] VITALS: BP 111/59
--- NOTE | 2018-08-24 01:00 | NUR ---
ASLEEP. NO S/S FO ANY PAIN NOTED.
[2018-08-24] MEDS: HYDROcodone/APAP 7.5/325 MG 1 TAB PO PRN ×3 (01:52→12:45)
--- NOTE | 2018-08-24 02:50 | NUR ---
PT IS ASLEEP. NO S/S OF ANY DISCOMFORT NOR PAIN NOTED.
[2018-08-24] MEDS: DEXT 5% /NACL 0.9% 1,000 ML IV SCH (04:00)
--- NOTE | 2018-08-24 04:30 | NUR ---
PT AWAKE. REQUESTED FOR SOME FOOD, HAD SOME CRACKERS AND JUICE.
--- NOTE | 2018-08-24 06:00 | NUR ---
PT HAD A MORNING CARE. WASHED UP INSIDE ROOM.
[2018-08-24 07:03] LABS: HEMATOCRIT 34.1 % (36-48); MEAN CORPUSCULAR HEMOGLOBIN 29 pg (27-31); MEAN CORPUSCULAR HGB CONC 32 g/dL (33-37); MEAN CORPUSCULAR VOLUME 88.1 fL (80-94); PLATELET COUNT (AUTO) 362 K/uL (140-450); RED BLOOD CELL COUNT(AUTO) 3.87 MIL/uL (4.20-5.40); RED CELL DISTRIBUTION WIDTH 13.5 % (11.6-13.7); WHITE BLOOD COUNT (AUTO) 4.2 K/uL (4.8-10.8)
--- NOTE | 2018-08-24 07:20 | NUR ---
ENDORSED PT IN STABLE CONDITION TO AM NURSE.
--- NOTE | 2018-08-24 07:20 | NUR ---
RECEIVED PT REPORT FROM GARNETT FEEDER NURSE AT BEDSIDE. PT IS AWAKE,ALERT AND OX4. NO C/O PAIN AT THIS TIME. NO S/S OF ACUTE DISTRESS ON ROOM AIR. IV ACCESS TO L FA G#18, PATENT AND INTACT, AMBULATORY. S/P RT INGUINAL INCISIONS S/P HERNIA REPAIR WITH STERI STRIPS. NO REDNESS, NO SWELLING AND NO DRAINAGE NOTED. PLAN OF CARE DISCUSSED. PT VERBALIZED UNDERSTANDING. BED IN LOWEST POSITION. SIDE RAILS ARE UPX2 AND CALL LIGHT WITHIN EASY REACH. WILL CONTINUE TO MONITOR.
[2018-08-24 07:25] LABS: ANION GAP 11.3 (8-16); CREATININE 0.9 mg/dL (0.6-1.3); POTASSIUM 3.3 mmol/L (3.5-5.1)
[2018-08-24 07:39] LABS: MAGNESIUM 1.9 mg/dL (1.8-2.4); PHOSPHORUS 4.6 mg/dL (2.5-4.9)
[2018-08-24 08:00] VITALS: BP 116/74
[2018-08-24 08:10] LABS: BASOPHILS % (MANUAL) 0 % (0-2); EOSINOPHILS % (MANUAL) 3 % (0-4); LYMPHOCYTES % (MANUAL) 45 % (20-46); MONOCYTES % (MANUAL) 9 % (5-12)
[2018-08-24] MEDS: SPIRONOLACTONE 25 MG TAB PO SCH (08:43)
[2018-08-24] MEDS: CARVEDILOL 6.25 MG TAB PO SCH (08:43)
[2018-08-24] MEDS: ASPIRIN 81 MG TAB.CHEW PO SCH (08:44)
[2018-08-24] MEDS: FUROSEMIDE 40 MG/4 ML VIAL IVP SCH (08:44)
[2018-08-24] MEDS ORDERED: POTASSIUM CHLORIDE 10 MEQ TABER PO SCH (09:00)
[2018-08-24] MEDS ORDERED: DOCU-299 PO (10:17)
[2018-08-24] MEDS ORDERED: HYDR-5122 PO (11:23)
--- NOTE | 2018-08-24 12:45 | NUR ---
PIC TAKEN FOR INCISION TO RIGHT ABD. PT EATING LUNCH, NO S/S OF ACUTE DISTRESS.
--- NOTE | 2018-08-24 13:30 | NUR ---
PT DISCHARGE PER MD ORDER. DISCHARGE INSTRUCTION AND MEDS TEACHING GIVEN. PT VERBALIZED UNDERSTANDING. IV DC'D, TIP INTACT, AND PRESSURE APPLIED. PT HAS NO C/O PAIN. NO S/S OF DISTRESS ON ROOM AIR. PT DRESSED HER SELF. PT WALKED TO LOBBY.
--- NOTE | 2018-08-25 08:42 | NUR ---
RECEIVED ORDER TO RESUME [facility] FOR P.T. CALL [facility] AND SPOKE WITH GÉNESIS AND FAXED FACE SHEET, ORDER, H&P, AND MED SHEETS TO [facility] [phone] PHONE [phone] Addendum: 08/25/18 at 0844 by Mirtha Eaton CM ALSO FAXED P.T. NOTES
== END 2018-08-24 13:35 | disposition home health service (06) | DRG 393 ==
LOC: MED 23:19 → MTU 08-21 02:24
PROVIDERS: ADMIT General Practice; ATTEND General Practice
PROC: 0D9670Z Drainage of Stomach with Drainage Device, Via Natural or Artificial Opening (ICD-10-PCS; principal; 2018-08-21)
DX: K43.6 Other and unspecified ventral hernia with obstruction, without gangrene (principal); I50.43 Acute on chronic combined systolic (congestive) and diastolic (congestive) heart failure; I21.A1 Myocardial infarction type 2; E44.1 Mild protein-calorie malnutrition; E87.6 Hypokalemia; E78.5 Hyperlipidemia, unspecified; I27.21 Secondary pulmonary arterial hypertension; E83.42 Hypomagnesemia; K21.9 Gastro-esophageal reflux disease without esophagitis; I11.0 Hypertensive heart disease with heart failure; F17.210 Nicotine dependence, cigarettes, uncomplicated; F12.90 Cannabis use, unspecified, uncomplicated; Z88.0 Allergy status to penicillin; Z88.8 Allergy status to other drugs, medicaments and biological substances; Z79.82 Long term (current) use of aspirin; Z79.899 Other long term (current) drug therapy; Z86.73 Personal history of transient ischemic attack (TIA), and cerebral infarction without residual deficits; Z82.3 Family history of stroke; Z68.27 Body mass index [BMI] 27.0-27.9, adult; Z71.51 Drug abuse counseling and surveillance of drug abuser; Z71.3 Dietary counseling and surveillance
CPT/HCPCS: 36415; 71045; 74250; 80048; 80053; 80305; 81001; 82150; 83690; 83735; 83880; 84100; 84443; 84484; 85025; 85610; 85730; 87081; 93005; J1644; J1940; J2270; J3480; J7030; J7042; Q0092

== ENCOUNTER 2018-08-25 10:17 | Inpatient (IN) | payer OTHER ==
[~2018-08-25] VITALS: Ht 157.5 cm; Wt 68.0 kg
[~2018-08-25 10:17] MED LIST changes: +HYDR-5122 PO; -NORC10 PO
--- NOTE | 2018-08-25 10:17 | NUR ---
PT GLORIA BLS TO ER BED 07
[2018-08-25 10:25] VITALS: BP 134/86
--- NOTE | 2018-08-25 10:30 | NUR ---
BIB [facility] TO THE ED WITH THE CHIEF C/O TONIC-CLONIC SEIZURE FOR THE FIRST TIME LAST FOR 2-3 MIN. A/O X4. MAKES NEED KNOWN. REPORTS DIZZINESS AND NAUSEA. DENIES VOMITING. REPORTS DIARRHEA X1 TODAY. NO BLOOD IN DIARRHEA. ABDOMEN SOFT, ROUND AND TENDER. S/P HERNIA REPAIR SURGICAL DRESSING NOTED ON RLQ. INTACT DRESSING. STATES PAIN OF 7/10. ACTIVE BOWEL SOUND. PER PT SHE TOOK [facility]CO AT 0700 AM THIS MORNING FOR PAIN. HX OF HTN, CHF. PLACED PT ON BEDSIDE MONITOR AND SEIZURE PRECAUTION. ER MD AWARE.
[2018-08-25] MEDS ORDERED: NACL 0.9% 1,000 ML IV SCH (11:17)
[2018-08-25] MEDS ORDERED: FAMOTIDINE 20 MG TAB PO ONE (11:20)
[2018-08-25] MEDS ORDERED: LORazepam 2 MG/ML VIAL IVP ONE (11:20)
[2018-08-25 12:01] LABS: BASOPHILS % (AUTO) 0.6 % (0.0-2.0); EOSINOPHILS # (AUTO) 0.1 K/uL (0-0.4); EOSINOPHILS % (AUTO) 1.9 % (0.0-4.0); HEMATOCRIT 35.3 % (36-48); HEMOGLOBIN 11.6 g/dL (12.0-16.0); LYMPHOCYTES # (AUTO) 1.2 K/uL (2.5-16.5); LYMPHOCYTES % (AUTO) 21.9 % (20.5-51.1); MEAN CORPUSCULAR HEMOGLOBIN 29 pg (27-31); MEAN CORPUSCULAR HGB CONC 33 g/dL (33-37); MEAN CORPUSCULAR VOLUME 87.3 fL (80-94); MONOCYTES # (AUTO) 0.7 K/uL (0.8-1.0); MONOCYTES % (AUTO) 12.8 % (1.7-9.3); NEUTROPHILS # (AUTO) 3.4 K/uL (1.8-7.7); NEUTROPHILS % (AUTO) 62.8 % (42.2-75.2); PLATELET COUNT (AUTO) 365 K/uL (140-450); RED BLOOD CELL COUNT(AUTO) 4.04 MIL/uL (4.20-5.40); RED CELL DISTRIBUTION WIDTH 13.4 % (11.6-13.7); WHITE BLOOD COUNT (AUTO) 5.5 K/uL (4.8-10.8)
--- NOTE | 2018-08-25 12:30 | NUR ---
NO C/O ANY PAIN. DENIES DIZZINESS. NO SEIZURE NOTED.
[2018-08-25 12:32] LABS: PROTHROMBIN TIME 9.4 secs (10.8-13.4)
[2018-08-25] MEDS: NACL 0.9% 1,000 ML IV SCH (13:08)
[2018-08-25] MEDS ORDERED: ONDANSETRON 4 MG/2 ML VIAL IM/IVP PRN (13:10)
[2018-08-25] MEDS ORDERED: ZOLPIDEM 5 MG TAB PO PRN (13:10)
[2018-08-25] MEDS ORDERED: ACETAMINOPHEN 325 MG TAB PO PRN (13:10)
[2018-08-25] MEDS ORDERED: HYDROcodone/APAP 5/325 MG 1 TAB TAB PO PRN (13:10)
[2018-08-25] MEDS ORDERED: DOCUSATE SODIUM 100 MG GELCAP PO PRN (13:10)
[2018-08-25] MEDS ORDERED: LORazepam 2 MG/ML VIAL IM/IVP PRN (13:10)
[2018-08-25] MEDS ORDERED: LORazepam 2 MG/ML VIAL IVP PRN (13:15)
[2018-08-25 13:24] LABS: ANION GAP 14.9 (8-16); CREATININE 0.9 mg/dL (0.6-1.3); POTASSIUM 3.9 mmol/L (3.5-5.1); TOTAL BILIRUBIN 0.2 mg/dL (0.0-1.0)
[2018-08-25 13:25] LABS: ALBUMIN 3.2 g/dL (3.4-5.0)
--- NOTE | 2018-08-25 13:30 | NUR ---
PT ARRIVED ON UNIT FROM ER NURSES. RECEIVED REPORT FROM ASHOK VIERA. PERFORMED INITIAL ASSESSMENT. PT APPEARED IN NO APPARENT DISTRESS. ALL SAFETY MEASURES IN PLACE. FAMILY AT BEDSIDE
[2018-08-25 13:32] LABS: ACETAMINOPHEN < 0.5 ug/ml (10-30); FREE T4 (FREE THYROXINE) 0.98 ng/dL (0.76-1.46); MAGNESIUM 1.9 mg/dL (1.8-2.4); THYROID STIMULATING HORMONE 0.31 uIU/mL (0.34-3.74)
[2018-08-25] MEDS ORDERED: NON-FORMULARY ITEM (Simethicone 80 MG) PO PRN (13:45)
--- NOTE | 2018-08-25 13:45 | NUR ---
ORIENTED PT TO UNIT. INITIATED SEIZURE PRECAUTIONS AND PLACED SEIZURE PADS ON PATIENTS BED. ALL SAFETY MEASURES ARE IN PLACE.
[2018-08-25] MEDS ORDERED: SIMETHICONE 80 MG TAB.CHEW PO PRN (13:55)
[2018-08-25] MEDS ORDERED: NITROGLYCERIN 0.4 MG TAB SL PRN (14:05)
--- NOTE | 2018-08-25 14:30 | NUR ---
INITIATED FALL RISK PROTOCOL DUE TO PT COMPLAINTS OF FATIGUE AND DIZZINESS.
--- NOTE | 2018-08-25 14:34 | NUR ---
Pt transferred to Tele via BED 110A .
[2018-08-25 14:45] VITALS: BP 121/80
[2018-08-25 14:46] LABS: BARBITURATE, URINE NEG. ng/ml (NEG <=200); BENZODIAZEPINE, URINE NEG. ng/mL (NEG <=200); CANNABINOID, URINE POS. ng/mL (NEG <=50); COCAINE, URINE NEG. ng/mL (NEG <=300); OPIATE, URINE POS. ng/mL (NEG <=2000); PHENCYCLIDINE SCREEN,URINE NEG. ng/mL (NEG <=25)
[2018-08-25 14:50] LABS: CHOL/HDL RATIO 1.8 (1-4.5); THYROID STIMULATING HORMONE 0.29 uIU/mL (0.34-3.74)
--- NOTE | 2018-08-25 15:30 | NUR ---
ROUNDED ON PATIENT. PT RESTING COMFORTABLY IN BED. NO SIGNS OF DISTRESS. ALL SAFETY MEASURES IN PLACE.
[2018-08-25 16:00] VITALS: BP 122/83
--- NOTE | 2018-08-25 17:24 | NUR ---
CISCO NETWORK ENGINEER AT BEDSIDE. PT IN NO APPARENT DISTRESS. WILL CONTINUE TO MONITOR
[2018-08-25] MEDS: FUROSEMIDE 20 MG TAB PO SCH (18:04)
[2018-08-25 18:46] LABS: APPEARANCE,URINE CLEAR (CLEAR); BILIRUBIN,URINE NEGATIVE (NEGATIVE); BLOOD, URINE 1+ (NEGATIVE); COLOR,URINE YELLOW (YELLOW); LEUKOCYTE ESTERASE ,URINE NEGATIVE (NEGATIVE); NITRITE, URINE NEGATIVE (NEGATIVE); PH,URINE 7.5 (5.0-9.0); UGLUCOSE NEGATIVE (NEGATIVE)
[2018-08-25 19:26] LABS: RBC,URINE 0-5 /HPF (0-5); WBC,URINE 0-5 /HPF (0-5)
--- NOTE | 2018-08-25 19:27 | NUR ---
HAND OFF REPORT GIVEN TO CEMENTER MACHINE JOINER NURSE. FAMILY AT BEDSIDE. PT IS RESTING COMFORTABLY WITH NO SIGNS OF DISTRESS.
--- NOTE | 2018-08-25 19:30 | NUR ---
ASSUMED CARE OF PATIENT, AWAKE, ALERT. FAMILY MEMBER AT BEDSIDE. CALL LIGHT WITHIN REACH.
[2018-08-25 20:00] VITALS: BP 106/74
[2018-08-25] MEDS: MORPHINE SULFATE 2 MG/ML SYR IVP PRN (20:18)
[2018-08-25] MEDS ORDERED: FUROSEMIDE 20 MG PO SCH (21:00)
[2018-08-25] MEDS ORDERED: NON-FORMULARY ITEM (Atorvastatin Calcium 10 MG) PO SCH (21:00)
[2018-08-25] MEDS: CARVEDILOL 6.25 MG TAB PO SCH (21:00)
[2018-08-25] MEDS ORDERED: METOPROLOL 25 MG TAB PO SCH (21:00)
--- NOTE | 2018-08-25 21:00 | NUR ---
DUE MEDS GIVEN. CARE BOARD UPDATED. PLAN OF CARE DISCUSSED WITH PATIENT, VERBALIZED UNDERSTANDING WELL. CALL LIGHT WITHIN REACH.
[2018-08-25] MEDS: ATORVASTATIN 20 MG TAB PO SCH (21:27)
[2018-08-26] MEDS: MORPHINE SULFATE 2 MG/ML SYR IVP PRN ×5 (00:28→20:44)
--- NOTE | 2018-08-26 00:30 | NUR ---
ASSISTED TO [facility] BY REAL ESTATE CONSULTANT. PAIN MEDS REQUESTED AND GIVEN. VITAL SIGNS STABLE. NO COMPLAINS. CALL LIGHT WITHIN REACH.
[2018-08-26 00:44] VITALS: BP 125/83
--- NOTE | 2018-08-26 02:00 | NUR ---
ASLEEP NO DISTRESS. CALL LIGHT WITHIN REACH.
[2018-08-26 04:18] LABS: BASOPHILS % (AUTO) 0.6 % (0.0-2.0); EOSINOPHILS # (AUTO) 0.1 K/uL (0-0.4); EOSINOPHILS % (AUTO) 2.3 % (0.0-4.0); HEMATOCRIT 34.7 % (36-48); HEMOGLOBIN 11.3 g/dL (12.0-16.0); LYMPHOCYTES # (AUTO) 1.9 K/uL (2.5-16.5); LYMPHOCYTES % (AUTO) 49.9 % (20.5-51.1); MEAN CORPUSCULAR HEMOGLOBIN 29 pg (27-31); MEAN CORPUSCULAR HGB CONC 33 g/dL (33-37); MEAN CORPUSCULAR VOLUME 87.3 fL (80-94); MONOCYTES # (AUTO) 0.5 K/uL (0.8-1.0); MONOCYTES % (AUTO) 12.9 % (1.7-9.3); NEUTROPHILS # (AUTO) 1.3 K/uL (1.8-7.7); NEUTROPHILS % (AUTO) 34.3 % (42.2-75.2); PLATELET COUNT (AUTO) 322 K/uL (140-450); RED BLOOD CELL COUNT(AUTO) 3.97 MIL/uL (4.20-5.40); RED CELL DISTRIBUTION WIDTH 13.5 % (11.6-13.7); WHITE BLOOD COUNT (AUTO) 3.9 K/uL (4.8-10.8)
[2018-08-26 04:27] LABS: ANION GAP 15.1 (8-16); CARBON DIOXIDE 26.3 mmol/L (21-32); CREATININE 0.9 mg/dL (0.6-1.3); POTASSIUM 3.4 mmol/L (3.5-5.1)
[2018-08-26 04:31] VITALS: BP 101/61
--- NOTE | 2018-08-26 04:32 | NUR ---
ASLEEP NO COMPLAINS. VITAL SIGNS STABLE. CALL LIGHT WITHIN REACH.
[2018-08-26 05:57] LABS: MAGNESIUM 1.8 mg/dL (1.8-2.4); PHOSPHORUS 3.4 mg/dL (2.5-4.9)
--- NOTE | 2018-08-26 06:15 | NUR ---
ASSIST TO [facility]. NO COMPLAINS. CALL LIGHT WITHIN REACH.
--- NOTE | 2018-08-26 07:22 | NUR ---
ENDORSED CARE AT BEDSIDE WITH QI RN, PATIENT IN STABLE CONDITION.
--- NOTE | 2018-08-26 07:23 | NUR ---
RECEIVED REPORT FROM PM NURSE AT BEDSIDE. PT LYING ON BED COMFORTABLY. PT ON SEIZURE PRECAUTION. SIDE RAILS PADDED. CALL LIGHT WITHIN REACH. UPDATED BOARD AND INTRODUCED SELF. IV ACCESS ON LFT FA, IVF INFI=USING AT 30 ML/HR. PT IS ON STRICT I&O. INFORMED PT TO USE CALL LIGHT FOR ANY HELP. VERBALIZED UNDERSTANDING. WILL CONTINUE TO MONITOR PT.
[2018-08-26 08:00] VITALS: BP 131/95
--- NOTE | 2018-08-26 08:48 | NUR ---
PATIENT HAS BEEN SCREENED AND CATEGORIZED MODERATE NUTRITION RISK. PATIENT WILL BE SEEN WITHIN 3-5 DAYS OF ADMISSION. 08/28/18KAMIN[address] GONZ[address]
[2018-08-26] MEDS ORDERED: NON-FORMULARY ITEM (Spironolactone (Aldactone) 25 MG) PO SCH (09:00)
[2018-08-26] MEDS ORDERED: NON-FORMULARY ITEM (Aspirin 81 MG) PO SCH (09:00)
[2018-08-26] MEDS ORDERED: POTASSIUM CHLORIDE 40 MEQ, LIDOCAINE MPF 1% - 5 mL VIAL 25 MG in NACL 0.9% 250 ML IV SCH ×2 (09:00→12:00)
[2018-08-26] MEDS: CARVEDILOL 6.25 MG TAB PO SCH ×2 (09:01→20:43)
[2018-08-26] MEDS: ASPIRIN 81 MG TAB.CHEW PO SCH (09:02)
[2018-08-26] MEDS: FUROSEMIDE 20 MG TAB PO SCH ×2 (09:02→16:44)
[2018-08-26] MEDS: ASCORBIC ACID 500 MG TAB PO SCH (09:02)
[2018-08-26] MEDS: SPIRONOLACTONE 25 MG TAB PO SCH (09:03)
[2018-08-26] MEDS: FERROUS SULFATE 325 MG TABEC PO SCH (09:03)
[2018-08-26] MEDS: NICOTINE TRANSD SYS 21 MG/24 HR PATCH TD SCH (09:04)
[2018-08-26] MEDS: levETIRAcetam 750 MG in NACL 0.9% 100 ML IV SCH ×2 (09:04→20:43)
--- NOTE | 2018-08-26 09:45 | NUR ---
ADMINISTERED MEDS TO PT. TOLERATED WELL. PT AT THE BEDSIDE. PT TOOK HER MEDS. NO SIGN OF DISTRESS NOTED. PT SITTING ON HER CHAIR. CALL LIGHT WITHIN PT REACH. INFORMED HER TO USE CALL LIGHT FOR ANY HELP. VERBALIZED UNDERSTANDING. WILL CONTINUE TO MONITOR PT.
[2018-08-26] MEDS ORDERED: PETROLATUM WHITE 30 GM TUBE TP PRN (11:00)
[2018-08-26 12:00] VITALS: BP 114/74
--- NOTE | 2018-08-26 12:06 | NUR ---
ADMINISTERED MEDS TO PT ORDERED. TOLERATED WELL. NO SIGN OF DISTRESS. CALL LIGHT WITHIN REACH. ASKED PT TO CALL USING CALL LIGHT FOR ANY HELP. PT SITTING ON HER CHAIR. WILL CONTINUE TO MONITOR PT.
[2018-08-26] MEDS: NACL 0.9% 1,000 ML IV SCH (13:08)
--- NOTE | 2018-08-26 14:39 | NUR ---
CHECKED ON PT . SLEEPING COMFORTABLY AT THIS TIME. NO SIGN OF DISTRESS NOTED. ALL SAFETY MEASURE IN PLACE. WILL CONTINUE TO MONITOR PT.
--- NOTE | 2018-08-26 15:56 | NUR ---
RECEIVED A CALL THIS MORNING FROM VLAD FROM [facility]. SHE SAID THEY NEVER GOT TO SEE THE PATIENT BECAUSE SHE WAS ADMITTED TO THE HOSPITAL. [facility] [phone].
[2018-08-26 16:00] VITALS: BP 127/83
--- NOTE | 2018-08-26 19:30 | NUR ---
ENDORSED PT TO PM NURSE AT BEDSIDE. PT IN STABLE CONDITION.
--- NOTE | 2018-08-26 19:30 | NUR ---
RECEIVED BEDSIDE REPORT FROM RN QI, PATIENT AMBULATED TO RESTROOM, STEADY GAIT, IV IN LEFT FA 20 G INFUSING NS AT 30 ML/HR. NOTED RIGHT SIDED CLOSED SURGICAL WOUND. PATIENT C/O SEVERE PAIN AT RIGHT HERNIA REPAIR SITE. EXPLAINED PLAN OF CARE. PATIENT REQUESTED SOMETHING TO SLEEP. PATIENT REQUESTED TO BE SEEN BY PHYCOLOGIST FOR ANXIETY PRIOR TO D/C.
[2018-08-26 20:00] VITALS: BP 115/55
[2018-08-26] MEDS: ATORVASTATIN 20 MG TAB PO SCH (20:43)
--- NOTE | 2018-08-26 20:44 | NUR ---
DUE MEDICATIONS GIVEN, MEDICATED WITH MORPHINE FOR SEVERE PAIN AND AMBIEN FOR INSOMNIA.
[2018-08-26] MEDS ORDERED: levETIRAcetam 500 MG TAB PO SCH (21:00)
--- NOTE | 2018-08-26 21:12 | NUR ---
PATIENT RESTING IN BED NO SIGNS OF PAIN.
[2018-08-27] VITALS: BP 108/49
--- NOTE | 2018-08-27 | NUR ---
V/S TAKEN NOTED BP 108/49 HR 68 DENIES PAIN
--- NOTE | 2018-08-27 01:39 | NUR ---
PATIENT ASLEEP IN BED, WILL CONTINUE TO MONITOR.
--- NOTE | 2018-08-27 02:35 | NUR ---
PATIENT C/O PAIN WILL MEDICATE ACCORDING TO MD ORDER
--- NOTE | 2018-08-27 03:11 | NUR ---
MEDICATED WITH MORPHINE ACCORDING TO MD ORDER
[2018-08-27] MEDS: MORPHINE SULFATE 2 MG/ML SYR IVP PRN ×3 (03:12→20:36)
[2018-08-27 03:50] VITALS: BP 125/77
--- NOTE | 2018-08-27 03:54 | NUR ---
V/S TAKEN BP 125/77 PATIENT SLEEPING IN BED, WILL CONTINUE TO MONITOR.
[2018-08-27 07:09] LABS: BASOPHILS % (AUTO) 0.9 % (0.0-2.0); EOSINOPHILS # (AUTO) 0.1 K/uL (0-0.4); EOSINOPHILS % (AUTO) 2.2 % (0.0-4.0); HEMATOCRIT 32.5 % (36-48); HEMOGLOBIN 10.7 g/dL (12.0-16.0); LYMPHOCYTES # (AUTO) 2.4 K/uL (2.5-16.5); LYMPHOCYTES % (AUTO) 57.2 % (20.5-51.1); MEAN CORPUSCULAR HEMOGLOBIN 29 pg (27-31); MEAN CORPUSCULAR HGB CONC 33 g/dL (33-37); MEAN CORPUSCULAR VOLUME 87.7 fL (80-94); MONOCYTES # (AUTO) 0.6 K/uL (0.8-1.0); MONOCYTES % (AUTO) 14.3 % (1.7-9.3); NEUTROPHILS # (AUTO) 1.1 K/uL (1.8-7.7); NEUTROPHILS % (AUTO) 25.4 % (42.2-75.2); PLATELET COUNT (AUTO) 306 K/uL (140-450); RED CELL DISTRIBUTION WIDTH 13.5 % (11.6-13.7); WHITE BLOOD COUNT (AUTO) 4.3 K/uL (4.8-10.8)
--- NOTE | 2018-08-27 07:12 | NUR ---
RECEIVED REPORT FROM HYDRAULICS TEACHER NURSE AT BEDSIDE. PT LYING IN BED COMFORTABLY. PT ON SEIZURE PRECAUTION. SIDE RAILS PADDED. CALL LIGHT WITHIN REACH. UPDATED BOARD AND INTRODUCED SELF. IV ACCESS ON LFT FA, IVF INFUSING AT 30 ML/HR. PT IS ON STRICT I&O. INFORMED PT TO USE CALL LIGHT FOR ANY HELP. VERBALIZED UNDERSTANDING. WILL CONTINUE TO MONITOR PT.
[2018-08-27 07:53] LABS: MAGNESIUM 1.6 mg/dL (1.8-2.4); PHOSPHORUS 3.7 mg/dL (2.5-4.9)
[2018-08-27 08:00] VITALS: BP 116/78
[2018-08-27] MEDS: FERROUS SULFATE 325 MG TABEC PO SCH (08:00)
[2018-08-27 08:05] LABS: ANION GAP 14.9 (8-16); CARBON DIOXIDE 25.2 mmol/L (21-32); CREATININE 0.8 mg/dL (0.6-1.3); POTASSIUM 4.1 mmol/L (3.5-5.1)
--- NOTE | 2018-08-27 08:34 | NUR ---
ADMINISTERED MORNING MEDS TO PT. PT TOLERATED THEM WELL. PT COMPLAINED OF 7/10 PAIN. MORPHINE WAS ALSO GIVEN. WILL REASSESS FOR MED EFFECTIVENESS. ALL OTHER NEEDS MET AT THIS TIME. WILL ROUND FREQUENTLY.
[2018-08-27] MEDS: SPIRONOLACTONE 25 MG TAB PO SCH (09:00)
[2018-08-27] MEDS: CARVEDILOL 6.25 MG TAB PO SCH ×2 (09:00→20:22)
[2018-08-27] MEDS: ASPIRIN 81 MG TAB.CHEW PO SCH (09:00)
[2018-08-27] MEDS: NICOTINE TRANSD SYS 21 MG/24 HR PATCH TD SCH (09:00)
[2018-08-27] MEDS: ASCORBIC ACID 500 MG TAB PO SCH (09:00)
[2018-08-27] MEDS: levETIRAcetam 750 MG in NACL 0.9% 100 ML IV SCH ×2 (09:00→20:21)
[2018-08-27] MEDS: FUROSEMIDE 20 MG TAB PO SCH ×3 (09:00→17:00)
--- NOTE | 2018-08-27 10:42 | NUR ---
PT HAD ANXIETY EPISODE DUE TO HER LEAVING. PT WAS GIVEN ATIVAN 1MG TO HELP HER CALM DOWN. PT VITAL SIGNS ARE STABLE FOLLOWS: TEMP:97.9, HR:86, BP:137/84, RR:18, O2:99%. PT IN STABLE CONDITION AT THIS TIME. WILL CONTINUE TO ROUND FREQUENTLY ON PT. BED IN LOW POSITION, CALL LIGHT WITHIN REACH, BED ALARM ON FOR PT SAFETY.
[2018-08-27] MEDS ORDERED: LEVE750T3 PO (10:54)
[2018-08-27] MEDS ORDERED: MAG SULF 2000 MG/WATER PREMIX 50 ML IV SCH (11:00)
[2018-08-27 12:00] VITALS: BP 139/75
[2018-08-27 12:09] LABS: MYOGLOBIN, SERUM <21 ng/mL (28 - 72); T3 UPTAKE 27 % (24 - 39)
--- NOTE | 2018-08-27 12:47 | NUR ---
PT RESTING IN BED. NO SIGNS OF PAIN OR DISTRESS AT THIS TIME. WILL CONTINUE TO ROUND FREQUWNTLY ON HER. BED IN LOW POSITION, CALL LIGHT WITHIN REACH.
[2018-08-27] MEDS: NACL 0.9% 1,000 ML IV SCH (12:57)
--- NOTE | 2018-08-27 15:49 | NUR ---
PT REQUESTING PAIN MEDICINE FOR 12/17 PAIN. WILL GIVE MORPHINE PER MD ORDERS. PT SHOWS NO SIGNS OF DISTRESS. IN STABLE CONDITION AT THIS TIME.
[2018-08-27 16:00] VITALS: BP 136/61
[2018-08-27] MEDS ORDERED: ESCITALOPRAM 20 MG TAB PO SCH (16:30)
--- NOTE | 2018-08-27 16:47 | NUR ---
PT RESTING IN BED WITH DAUGHTER AT BEDSIDE. PT IN GOOD SPIRITS. ALL NEEDS MET AT THIS TIME. WILL CONTINUE TO ROUND FREQUENTLY.
--- NOTE | 2018-08-27 17:49 | NUR ---
PT IN ROOM EATING DINNER. DAUGHTER IS ASSISTING HER. PT HAS NO COMPLAINTS OF PAIN OR DISTRESS AT THIS TIME. WILL CONTINUE TO MONITOR PT CLOSELY.
[2018-08-27] MEDS ORDERED: diphenhydrAMINE 2% 30 GM TUBE TP PRN (18:25)
--- NOTE | 2018-08-27 19:39 | NUR ---
ENDORSED PT TO GRAPHICS EDITOR NURSE AT BEDSIDE. PT IN STABLE CONDITION.
--- NOTE | 2018-08-27 19:40 | NUR ---
RECEIVED PT FROM HONEY RN PT AAOX4 USING BS VOIDING WELL ON TELMETRY SR IV ON LEFT FA INFUSIGN WELL RELATIVES AT BED SIDE INITIAL ASSESSMENT DONE
[2018-08-27 20:00] VITALS: BP 122/83
[2018-08-27] MEDS: ATORVASTATIN 20 MG TAB PO SCH (20:22)
--- NOTE | 2018-08-27 21:40 | NUR ---
AFTER PAIN MEDIC GIVEN PT REMAIN STABLE DENIES ANY PAIN ON TELMETRY SR
[2018-08-28] VITALS: BP 136/84
--- NOTE | 2018-08-28 | NUR ---
PT IS ASSISTED TO USED BSC VOIDING WELL ON TELEMETRY SR DENIES PAIN AT HIS TIME
--- NOTE | 2018-08-28 02:00 | NUR ---
PT IS ASSISTED TO USE BSC VOIDING WELL NOT DISTRESS NOTED
[2018-08-28] MEDS: MORPHINE SULFATE 2 MG/ML SYR IVP PRN (02:44)
--- NOTE | 2018-08-28 03:15 | NUR ---
AFTER PAIN MEDIC GIVEN PT SLEEPS WELL NOT DISTRESS NOTED ON TELMETRY SR BIPHASIC T
[2018-08-28 04:00] VITALS: BP 129/63
--- NOTE | 2018-08-28 05:00 | NUR ---
SPONGE BATH GIVEN LINEN CHANGED VOIDING WELL ON BSC IV ON LEFT FA INFUSING WELL
--- NOTE | 2018-08-28 06:26 | NUR ---
;NOT SEIZURES ACTIVITY SEEN DURING ALL TEACHER OF GIFTED STUDENTS , PT ON TELMETRY SR BIPHASIC T SLEEPING AT THIS TIME
[2018-08-28] MEDS ORDERED: ESCI20TA47 PO (06:33)
[2018-08-28 07:03] LABS: BASOPHILS % (AUTO) 1.2 % (0.0-2.0); EOSINOPHILS # (AUTO) 0.1 K/uL (0-0.4); EOSINOPHILS % (AUTO) 2.2 % (0.0-4.0); HEMATOCRIT 32.2 % (36-48); HEMOGLOBIN 10.6 g/dL (12.0-16.0); LYMPHOCYTES # (AUTO) 1.8 K/uL (2.5-16.5); LYMPHOCYTES % (AUTO) 48.7 % (20.5-51.1); MEAN CORPUSCULAR HEMOGLOBIN 29 pg (27-31); MEAN CORPUSCULAR HGB CONC 33 g/dL (33-37); MEAN CORPUSCULAR VOLUME 87.8 fL (80-94); MONOCYTES # (AUTO) 0.4 K/uL (0.8-1.0); MONOCYTES % (AUTO) 10.5 % (1.7-9.3); NEUTROPHILS # (AUTO) 1.4 K/uL (1.8-7.7); NEUTROPHILS % (AUTO) 37.4 % (42.2-75.2); PLATELET COUNT (AUTO) 290 K/uL (140-450); RED BLOOD CELL COUNT(AUTO) 3.67 MIL/uL (4.20-5.40); RED CELL DISTRIBUTION WIDTH 13.6 % (11.6-13.7); WHITE BLOOD COUNT (AUTO) 3.8 K/uL (4.8-10.8)
--- NOTE | 2018-08-28 07:10 | NUR ---
RECEIVED PT FROM COAL EQUIPMENT OPERATOR NURSE, RUBY, PT IS AWAKE AND IS UPSET WITH THE RESIDENT MD, DR. HERNANDEZ, PT WAS ASKED TO CALM DOWN AND TAUGHT TO DO DEEP BREATHING EXERCISE, PT COMPLIED, FALL PRECAUTION ENFORCED, SIDE RAILS ARE UP AND CALL LIGHT WITHIN REACH, BED ALARM ACTIVATED, PT DENIES ANY PAIN AND NO SIGN OF DISTRESS NOTED. WILL MONITOR PT.
[2018-08-28 07:30] LABS: MAGNESIUM 1.9 mg/dL (1.8-2.4); PHOSPHORUS 3.2 mg/dL (2.5-4.9)
[2018-08-28 07:32] LABS: ANION GAP 12.7 (8-16); CARBON DIOXIDE 27.7 mmol/L (21-32); CREATININE 0.8 mg/dL (0.6-1.3); POTASSIUM 3.4 mmol/L (3.5-5.1)
--- NOTE | 2018-08-28 07:35 | NUR ---
DR. CANDELARIO AND THE RESIDENT DOCTORS MADE THEIR ROUNDS TO THE PT'S ROOM AND PT IS TALKING VERY UPSET TO THE DOCTORS. WILL MONITOR PT.
[2018-08-28 08:00] VITALS: BP 119/76
[2018-08-28] MEDS ORDERED: POTASSIUM CHLORIDE 10 MEQ TABER PO SCH (08:00)
--- NOTE | 2018-08-28 08:05 | NUR ---
PT IS AWAKE WITH ON THE BEDSIDE, VITAL SIGNS TAKEN AND IS WITHIN NORMAL LIMIT, PT DENIES PAIN AND NO SIGN OF DISTRESS NOTED. WILL MONITOR PT.
[2018-08-28] MEDS: ASCORBIC ACID 500 MG TAB PO SCH (08:55)
[2018-08-28] MEDS: FERROUS SULFATE 325 MG TABEC PO SCH (08:55)
[2018-08-28] MEDS: ASPIRIN 81 MG TAB.CHEW PO SCH (08:58)
[2018-08-28] MEDS ORDERED: ESCITALOPRAM 20 MG TAB PO SCH (09:00)
[2018-08-28] MEDS: FUROSEMIDE 20 MG TAB PO SCH (09:00)
[2018-08-28] MEDS: CARVEDILOL 6.25 MG TAB PO SCH (09:01)
[2018-08-28] MEDS: NICOTINE TRANSD SYS 21 MG/24 HR PATCH TD SCH (09:02)
[2018-08-28] MEDS: SPIRONOLACTONE 25 MG TAB PO SCH (09:02)
[2018-08-28] MEDS: levETIRAcetam 750 MG in NACL 0.9% 100 ML IV SCH (09:04)
--- NOTE | 2018-08-28 09:05 | NUR ---
PT IS AWAKE WITH ON THE BEDSIDE, PT IS LYING ON THE BED, VITAL SIGNS CHECKED AND BP IS 117/80, PULSE IS 79, O2 SATURATION IS 100%, RESPIRATION IS 18/MIN, ORAL AND IV MEDICATIONS AND PT TOLERATED IT, NO SIGN OF DISTRESS NOTED AND WILL MONITOR PT.
--- NOTE | 2018-08-28 09:15 | NUR ---
RECEIVED ORDER FOR HOME HEALTH FOR P.T. I CALLED [facility] AND SPOKE WITH VLAD. FAXED FACE SHEET, ORDER, H&P, P.T. NOTES AND MED SHEETS TO [facility] [phone] PHONE [phone]
--- NOTE | 2018-08-28 10:15 | NUR ---
PT IS TALKING TO NURSE FRUIT AND VEGETABLE PACKER, ASHOK MARSHALL NOW.
--- NOTE | 2018-08-28 11:00 | NUR ---
PT WAS INFORMED THAT SHE WILL BE GOING HOME WITH HOME HEALTH SERVICE FROM [facility] FOR PT AND PT VERBALIZED THAT SHE LIKED IT AND THAT SHE PREFERS THAT HOME HEALTH AGENCY.
--- NOTE | 2018-08-28 11:55 | NUR ---
DISCHARGED PT VIA WHEELCHAIR WITH THE , IV LINE AND ARM BANDS REMOVED, DISCHARGED TEACHINGS AND INSTRUCTIONS GIVEN AND PT VERBALIZED UNDERSTANDING, PT WAS INFORMED ABOUT THE [facility] THAT WILL DO PT FOR HER, INFORMATION WAS GIVEN AND WRITTEN DOWN TO PT. PT IS STABLE AT THIS TIME, BP IS 115/80, PULSE IS 78, O2 SATURATION IS AT 98%, TEMPERATURE IS 98.6 AND RESPIRATION IS 16/MIN, PT DENIES PAIN AT THIS TIME.
== END 2018-08-28 11:55 | disposition home health service (06) | DRG 100 ==
LOC: MED 10:17 → MTU 13:08
PROVIDERS: ADMIT General Practice; ATTEND General Practice
PROC: 4A00X4Z Measurement of Central Nervous Electrical Activity, External Approach (ICD-10-PCS; principal; 2018-08-26)
DX: R56.9 Unspecified convulsions (principal); I21.A1 Myocardial infarction type 2; I50.43 Acute on chronic combined systolic (congestive) and diastolic (congestive) heart failure; E44.1 Mild protein-calorie malnutrition; I42.9 Cardiomyopathy, unspecified; E87.6 Hypokalemia; K21.9 Gastro-esophageal reflux disease without esophagitis; I11.0 Hypertensive heart disease with heart failure; F17.210 Nicotine dependence, cigarettes, uncomplicated; F12.90 Cannabis use, unspecified, uncomplicated; F11.90 Opioid use, unspecified, uncomplicated; E83.42 Hypomagnesemia; F41.9 Anxiety disorder, unspecified; D64.9 Anemia, unspecified; Z68.27 Body mass index [BMI] 27.0-27.9, adult; Z88.0 Allergy status to penicillin; Z88.8 Allergy status to other drugs, medicaments and biological substances; Z79.82 Long term (current) use of aspirin; Z79.899 Other long term (current) drug therapy; Z82.3 Family history of stroke; Z71.3 Dietary counseling and surveillance; Z71.51 Drug abuse counseling and surveillance of drug abuser
CPT/HCPCS: 36415; 70450; 71045; 80048; 80053; 80305; 81001; 82550; 82553; 82607; 82728; 82746; 83036; 83540; 83605; 83690; 83735; 83874; 83880; 84100; 84134; 84439; 84443; 84479; 84484; 84702; 85025; 85045; 85379; 85610; 87040; 87081; 87086; 93005; 93970; 95816; 97110; 97116; 97530; 99285; G0480; G0482; J1644; J1953; J2001; J2060; J2270; J3475; J3480; J7030; Q0092

== ENCOUNTER 2018-08-31 23:27 | Inpatient (IN) | payer OTHER ==
[~2018-08-31] VITALS: Ht 157.5 cm; Wt 68.0 kg
[~2018-08-31 23:27] MED LIST changes: +ESCI20TA47 PO; +LEVE750T3 PO
--- NOTE | 2018-08-31 23:27 | NUR ---
PT TAKEN TO BED 10
--- NOTE | 2018-08-31 23:30 | NUR ---
PT BEDSIDE TRIAGED IN BED 10 REPORT TO CASSIDY VIERA
--- NOTE | 2018-08-31 23:30 | NUR ---
57/F PRESENTS TO ED WITH FAMILY, C/O 03/19 RLQ PAIN, X1 DAY. PT IS S/P HERNIA REPAIR (08/10/18), WAS RECENTLY DISCHARGED [facility] (08/[facility]). LBM 2 DAYS AGO, REPORTS CONSTIPATION. REPORTS NAUSEA. AOX4, GCS 15, IN MODERATE AMOUNT OF DISTRESS, RR EVEN AND SLIGHTLY LABORED. LUNG SOUNDS CLEAR BL. S1S2 PRESENT. BS ACTIVE X4, ABD SOFT FLAT TENDER TO RLQ, PALPABLE INGUINAL HERNIA NOTED. HX R INGUINAL HERNIA S/P HERNIA REPAIR, CHF, TIA, SZ
[2018-08-31 23:31] VITALS: BP 154/100
--- NOTE | 2018-08-31 23:35 | NUR ---
R SUPRAPUBIC INCISION SITE APPROXIMATED WELL, -REDNESS, -SWELLING. OLD STERI-STRIPS REMOVED, CLEANSED WITH NS AND GAUZE, PAT DRY, LEFT OPEN TO AIR, PT TOLERATED WELL.
--- NOTE | 2018-08-31 23:48 | NUR ---
PATIENT AMBULATED TO BATHROOM
[2018-09-01] MEDS ORDERED: NACL 0.9% 1,000 ML IV ONE (00:08)
[2018-09-01] MEDS: MORPHINE SULFATE 4 MG/ML SYR IVP ONE ×2 (00:10→01:10)
[2018-09-01] MEDS: ONDANSETRON 4 MG/2 ML VIAL IVP ONE ×2 (00:10→01:10)
[2018-09-01] MEDS ORDERED: ONDANSETRON 4 MG/2 ML VIAL IVP ONE ×2 (00:10→03:15)
[2018-09-01] MEDS ORDERED: MORPHINE SULFATE 4 MG/ML SYR IVP ONE (00:10)
--- NOTE | 2018-09-01 00:10 | NUR ---
PT TAKEN TO CT
[2018-09-01 00:39] LABS: BASOPHILS % (AUTO) 1.1 % (0.0-2.0); EOSINOPHILS # (AUTO) 0.1 K/uL (0-0.4); HEMATOCRIT 32.9 % (36-48); HEMOGLOBIN 10.7 g/dL (12.0-16.0); LYMPHOCYTES % (AUTO) 67.3 % (20.5-51.1); MEAN CORPUSCULAR HEMOGLOBIN 29 pg (27-31); MEAN CORPUSCULAR HGB CONC 33 g/dL (33-37); MEAN CORPUSCULAR VOLUME 87.8 fL (80-94); MONOCYTES # (AUTO) 0.6 K/uL (0.8-1.0); MONOCYTES % (AUTO) 12.6 % (1.7-9.3); NEUTROPHILS # (AUTO) 0.7 K/uL (1.8-7.7); PLATELET COUNT (AUTO) 249 K/uL (140-450); RED BLOOD CELL COUNT(AUTO) 3.75 MIL/uL (4.20-5.40); RED CELL DISTRIBUTION WIDTH 13.6 % (11.6-13.7); WHITE BLOOD COUNT (AUTO) 4.5 K/uL (4.8-10.8)
[2018-09-01 00:54] LABS: ANION GAP 13.6 (8-16); CARBON DIOXIDE 27.3 mmol/L (21-32); POTASSIUM 3.9 mmol/L (3.5-5.1); TOTAL BILIRUBIN 0.2 mg/dL (0.0-1.0)
[2018-09-01 00:55] LABS: ALBUMIN 3.1 g/dL (3.4-5.0)
--- NOTE | 2018-09-01 01:09 | NUR ---
PT TAKEN TO CT
--- NOTE | 2018-09-01 01:37 | NUR ---
PT LAYING IN BED, FAMILY AT BEDSIDE. RR EVEN AND UNLABORED. PT REPORTS IMPROVEMENT IN RLQ PAIN, / AT THIS TIME. PT ALSO C/O MILD HEADACHE AND CHEST PAIN, REPORTS SIMILAR TO HEARTBURN. VS NOTED. ALL NEEDS MET AT THIS TIME. Addendum: 09/01/18 at 0246 by JOHN LEODAN VIERA WAS MADE AWARE
[2018-09-01 02:35] LABS: APPEARANCE,URINE CLEAR (CLEAR); BILIRUBIN,URINE NEGATIVE (NEGATIVE); BLOOD, URINE 1+ (NEGATIVE); COLOR,URINE YELLOW (YELLOW); LEUKOCYTE ESTERASE ,URINE NEGATIVE (NEGATIVE); NITRITE, URINE NEGATIVE (NEGATIVE); UGLUCOSE NEGATIVE (NEGATIVE)
[2018-09-01 02:39] LABS: WBC,URINE 0-5 /HPF (0-5)
--- NOTE | 2018-09-01 02:55 | NUR ---
PT LAYING IN BED, RR EVEN AND UNLABORED. VS NOTED, REPORTS IMPROVEMENT IN PAIN, DENIES NAUSEA AT THIS TIME. PT GIVEN CLEAR JELLO AND APPLE JUICE FOR PO CHALLENGE, WILL MONITOR FOR PAIN AND NAUSEA.
--- NOTE | 2018-09-01 03:05 | NUR ---
PT REPORTS NAUSEA AFTER PO CHALLENGE, REPORTS NO INCREASE IN ABD PAIN. ER MD MADE AWARE
--- NOTE | 2018-09-01 03:09 | NUR ---
DR JACINTO AT BEDSIDE
[2018-09-01] MEDS ORDERED: ACETAMINOPHEN 325 MG TAB PO PRN (03:15)
[2018-09-01] MEDS ORDERED: ONDANSETRON 4 MG/2 ML VIAL IM/IVP PRN (03:15)
[2018-09-01] MEDS ORDERED: DOCUSATE SODIUM 100 MG GELCAP PO PRN (03:15)
[2018-09-01] MEDS ORDERED: DEXT 5% / NACL 0.45% 1,000 ML IV ONE (03:20)
--- NOTE | 2018-09-01 03:37 | NUR ---
DR ALY AT BEDSIDE
[2018-09-01 03:40] LABS: PROTHROMBIN TIME 10.3 secs (10.8-13.4)
--- NOTE | 2018-09-01 03:46 | NUR ---
PT LAYING IN BED, RR EVEN AND UNLABORED. REPORTS TOLERABLE RLQ PAIN, HEADACHE AND MILD CHEST/BREAST PAIN AT THIS TIME. REPORTS NAUSEA, ADMINISTERED ZOFRAN IV WITH EDUCATION, PT TOLERATED WELL. ALL NEEDS MET AT THIS TIME.
[2018-09-01 03:52] LABS: MAGNESIUM 1.7 mg/dL (1.8-2.4); PHOSPHORUS 3.9 mg/dL (2.5-4.9); THYROID STIMULATING HORMONE 0.94 uIU/mL (0.34-3.74)
[2018-09-01 04:03] LABS: BARBITURATE, URINE NEGATIVE ng/ml (NEG <=200); BENZODIAZEPINE, URINE NEGATIVE ng/mL (NEG <=200); CANNABINOID, URINE NEGATIVE ng/mL (NEG <=50); COCAINE, URINE NEGATIVE ng/mL (NEG <=300); OPIATE, URINE POSITIVE ng/mL (NEG <=2000); PHENCYCLIDINE SCREEN,URINE NEGATIVE ng/mL (NEG <=25)
--- NOTE | 2018-09-01 04:05 | NUR ---
Patient will be admitted to care of DR. HERNANDEZ. Admited to TELE. Will go to room 105B. Belongings list completed. Report to AYLIN FLORES.
--- NOTE | 2018-09-01 04:07 | NUR ---
PATIENT ARRIVED IN UNIT VIA RPINECREST, ACCOMPANIED BY GREENHOUSE TRANSPLANTER AND . PATIENT IS ABLE TO AMBULATE FROM GURNEY TO BED, WITH ASSISTANCE. PATIENT IS A/Ox4, ABLE TO MAKE NEEDS KNOWN. INTRODUCED SELF, MADE PATIENT FAMILIAR WITH ROOM AND HOSPITAL ENVIRONMENT, UPDATED BOARD. CHIEF COMPLAINT OF RLQ PAIN FOR 1 DAY. DX - GASTROENTERITIS. NO SOB OR DISTRESS NOTED, ON ROOM AIR. IV SITE ON LEFT ANTECUBITAL, 18 GAUGE, INTACT, SALINE LOCKED. SKIN INTACT. VITALS SIGNS UPON ADMISSION ARE FOLLOWS: BP 141/81, RR 17, HR 79, TEMP 98.1 DEGREES F., O2Sat 100%. BED IN THE LOWEST POSITION, CALL LIGHT WITHIN REACH. INITIAL ASSESSMENT DONE. WILL CONTINUE TO MONITOR. Addendum: 09/01/18 at 0727 by North Lam RN ADMITTING DIAGNOSIS IS ABDOMINAL PAIN, NAUSEA/VOMITING.
[2018-09-01] MEDS ORDERED: DEXT 5% / NACL 0.45% 1,000 ML IV SCH (04:10)
[2018-09-01] MEDS ORDERED: SIMETHICONE 80 MG TAB.CHEW PO PRN (04:10)
[2018-09-01] MEDS ORDERED: MAGNESIUM OXIDE 400 MG TAB PO SCH (04:10)
[2018-09-01] MEDS ORDERED: NITROGLYCERIN 0.4 MG TAB SL ONE (04:15)
--- NOTE | 2018-09-01 04:30 | NUR ---
IVF D5%/NaCL 0.45% 1000mL STARTED. Addendum: 09/01/18 at 0609 by North Lam RN RUNNING AT 100mL/HR.
[2018-09-01 04:48] VITALS: BP 141/81
--- NOTE | 2018-09-01 06:00 | NUR ---
ROUNDS MADE, PATIENT ASLEEP, VISIBLE CHEST RISE AND FALL NOTED.
--- NOTE | 2018-09-01 07:00 | NUR ---
ENDORSED PATIENT TO AM SHIFT RN; PATIENT IN STABLE CONDITION.
--- NOTE | 2018-09-01 07:16 | NUR ---
RECEIVED REPORT FROM CHIEF ENGINEER'S HELPER. PATIENT IS A/Ox4, ABLE TO MAKE NEEDS KNOWN. INTRODUCED SELF AND REVIEWED POC WITH PT. NO SOB OR DISTRESS NOTED, ON ROOM AIR. IV SITE ON LEFT AC 18 GAUGE, INTACT AND PATENT RUNNING D51/2NS AT 100ML/HR. SKIN INTACT. BED IN THE LOWEST POSITION, CALL LIGHT WITHIN REACH. WILL CONTINUE TO MONITOR.
[2018-09-01 07:38] LABS: BASOPHILS % (AUTO) 0.8 % (0.0-2.0); EOSINOPHILS % (AUTO) 0.4 % (0.0-4.0); HEMATOCRIT 30.6 % (36-48); LYMPHOCYTES # (AUTO) 1.9 K/uL (2.5-16.5); LYMPHOCYTES % (AUTO) 31.9 % (20.5-51.1); MEAN CORPUSCULAR HEMOGLOBIN 29 pg (27-31); MEAN CORPUSCULAR HGB CONC 33 g/dL (33-37); MEAN CORPUSCULAR VOLUME 87.6 fL (80-94); MONOCYTES # (AUTO) 0.5 K/uL (0.8-1.0); NEUTROPHILS # (AUTO) 3.5 K/uL (1.8-7.7); NEUTROPHILS % (AUTO) 58.9 % (42.2-75.2); PLATELET COUNT (AUTO) 220 K/uL (140-450); RED BLOOD CELL COUNT(AUTO) 3.49 MIL/uL (4.20-5.40); RED CELL DISTRIBUTION WIDTH 13.2 % (11.6-13.7)
[2018-09-01 08:00] VITALS: BP 104/61
--- NOTE | 2018-09-01 08:26 | NUR ---
PATIENT HAS BEEN SCREENED AND CATEGORIZED MODERATE NUTRITION RISK. PATIENT WILL BE SEEN WITHIN 3-5 DAYS OF ADMISSION. 09/03/18[address]
[2018-09-01 08:32] LABS: POTASSIUM 3.8 mmol/L (3.5-5.1)
[2018-09-01 08:33] LABS: ANION GAP 12.8 (8-16); CREATININE 0.9 mg/dL (0.6-1.3)
[2018-09-01] MEDS ORDERED: PANTOPRAZOLE 40 MG TABEC PO SCH ×2 (09:00→10:30)
[2018-09-01] MEDS ORDERED: ESCITALOPRAM 20 MG TAB PO SCH (09:00)
[2018-09-01 09:27] LABS: MAGNESIUM 1.7 mg/dL (1.8-2.4)
[2018-09-01 09:28] LABS: PHOSPHORUS 3.2 mg/dL (2.5-4.9)
--- NOTE | 2018-09-01 09:48 | NUR ---
ADMINISTERED MORNING MEDS TO PT. PT TOLERATED THEM WELL. PT ALSO COMPLAINED OF HEADACHE AND ABD PAIN OF 7/10. MORPHINE 1MG WAS GIVEN. WILL REASSESS FOR MED EFFECTIVENESS.
[2018-09-01] MEDS: CARVEDILOL 6.25 MG TAB PO SCH ×2 (10:19→21:22)
[2018-09-01] MEDS: ASPIRIN 81 MG TAB.CHEW PO SCH (10:19)
[2018-09-01] MEDS: FUROSEMIDE 20 MG TAB PO SCH ×2 (10:19→21:23)
[2018-09-01] MEDS: levETIRAcetam 500 MG TAB PO SCH ×2 (10:20→21:23)
[2018-09-01] MEDS: DOCUSATE SODIUM 100 MG GELCAP PO SCH ×2 (10:20→21:22)
[2018-09-01] MEDS: SPIRONOLACTONE 25 MG TAB PO SCH (10:20)
[2018-09-01] MEDS: MORPHINE SULFATE 2 MG/ML SYR IVP PRN ×3 (10:21→21:59)
--- NOTE | 2018-09-01 10:43 | NUR ---
RECEIVED ORDER FOR SNF FOR P.T. I TRIED TO CALL [facility], . GOT A VOICE MAIL THAT SAID THEY ARE EXPERIENCING A LARGE VOLUME OF CALLS AND CANNOT ROUTE ME TO AN AGENT. WILL CALL BACK.
--- NOTE | 2018-09-01 11:56 | NUR ---
PT RESTING IN BED WITH AT BEDSIDE. PT IN GOOD SPIRITS AT THIS TIME, WILL CONTINUE TO ROUND FREQUENTLY. IN STABLE CONDITION, NO COMPLAINTS OF SOB. BED IN LOW POSITION, CALL LIGHT WITHIN REACH.
[2018-09-01 12:00] VITALS: BP 117/79
--- NOTE | 2018-09-01 13:14 | NUR ---
PT RESTING IN BED. NO COMPLAINTS OF PAIN OR DISTRESS AT THIS TIME. WILL CONTINUE TO ROUND FREQUENTLY ON PT. BED IN LOW POSITION, CALL LIGHT WITHIN REACH.
--- NOTE | 2018-09-01 13:45 | NUR ---
TRIED TO CALL [facility] AGAIN. STILL CANNOT LEAVE MESSAGE. THEY ARE STILL EXPERIENCING HIGH VOLUME. I CALLED [facility]. THEY DO NOT TAKE [facility]. Addendum: 09/01/18 at 1413 by Mirtha Eaton CALLED [facility], THEY DO NOT HAVE A CONTRACT WITH [facility] CALLED [facility] AND SPOKE WITH JOSE. THEY DO NOT HAVE A CONTRACT WITH [facility].
--- NOTE | 2018-09-01 14:02 | NUR ---
PER PHYSICAL THERAPY, PT IS REFUSING THERAPY. PT TRIED THREE TIMES BUT WAS UNSUCCESSFUL. PT WILL TRY AGAIN LATER.
[2018-09-01] MEDS ORDERED: NACL 0.45% 1,000 ML IV SCH (14:10)
[2018-09-01] MEDS ORDERED: MAGNESIUM CITRATE 300 ML BTL PO SCH ×2 (14:15→22:00)
[2018-09-01] MEDS ORDERED: POTASSIUM CHLORIDE 20% 40 MEQ/15 ML UDC GT SCH (14:30)
[2018-09-01] MEDS ORDERED: POTASSIUM CHLORIDE 10 MEQ TABER PO SCH (14:47)
[2018-09-01 16:00] VITALS: BP 119/72
--- NOTE | 2018-09-01 16:51 | NUR ---
PT RESTING IN BED WITH BEDSIDE. ALL NEEDS MET AT THIS TIME. WILL CONTINUE TO ASSESS FOR CHANGES IN CONDITION.
[2018-09-01] MEDS: SENNA 8.6 MG TAB PO SCH (17:48)
[2018-09-01] MEDS: POLYETHYLENE GLYCOL 17 GM/PKT PO SCH (17:48)
[2018-09-01] MEDS: LACTULOSE 20 GM/30 ML UDC PO SCH ×2 (17:48→21:22)
[2018-09-01] MEDS: DEXT 5% / NACL 0.45% 1,000 ML IV SCH (17:50)
[2018-09-01 19:45] VITALS: BP 129/84
--- NOTE | 2018-09-01 19:57 | NUR ---
ENDORSED PT TO SUPERVISOR WINTER FOR CONTINUITY OF CARE. PT IN STABLE CONDITION AT THIS TIME.
--- NOTE | 2018-09-01 19:58 | NUR ---
RECEIVED PT IN STABLE CONDITION FROM AM NURSE. AWAKE,ALERT AND ORIENTED X4. AMBULATORY WITH STANDBY ASSISTANCE. FAMILY AT BEDSIDE. NO /CO ANY PAIN NOTED. AT THIS,TIME. WITH OV ACCESS ON THE LT AC G#18., CLEAR AND PATENT. PLAN OF CARE DISCUSSED AND VERBALIZED UNDERSTANDING. BED ON LOW POSITION, FREQUENT ROUNDS NEEDED. CALL LIGHT PLACED WITHIN EASY REACH. SIDE RAILS ARE PADDED FOR SEIZURE PROTECTION. WILL CONTINUE TO MONITOR.
--- NOTE | 2018-09-01 20:10 | NUR ---
ASSISTED UP TO THE BS. SHE WANTS TO GO BM. SHE IN O2O22L/NC. NO SOB NOTED. Addendum: 09/01/18 at 2017 by Lian Dixon RN CANCEL ABOVE NOTES. WRONG PT.
--- NOTE | 2018-09-01 20:30 | NUR ---
UP TO BATHROOM . HAD ANOTHER LOOSE BM , STILL BROWNISH LIQUID.
[2018-09-01] MEDS: ATORVASTATIN 20 MG TAB PO SCH (21:23)
--- NOTE | 2018-09-01 22:30 | NUR ---
ABLE TO FINISH CITROMA ORDERED.
--- NOTE | 2018-09-01 23:15 | NUR ---
MADE ROUNDS. PT IS ASLEEP. NO S/S OF ANY DISCOMFORT NOTED.
[2018-09-01 23:50] VITALS: BP 133/82
[2018-09-02] VITALS (8 sets, daily range): BP systolic 106–140; BP diastolic 63–84
--- NOTE | 2018-09-02 02:00 | NUR ---
PT ASLEEP. NO S/S OF ANY DISCOMFORT NOTED.
[2018-09-02] MEDS: DEXT 5% / NACL 0.45% 1,000 ML IV SCH ×2 (02:46→13:11)
[2018-09-02] MEDS: MORPHINE SULFATE 2 MG/ML SYR IVP PRN ×3 (02:47→13:09)
--- NOTE | 2018-09-02 03:00 | NUR ---
PT AWAKE. JUST GOT UP TO THE BATHROOM. C/O ABDOMINAL PAIN. MEDICATED ORDERED FOR PAIN.
--- NOTE | 2018-09-02 05:00 | NUR ---
PT HAS BEEN GOING TO THE BATHROOM, STOOL OUTPUT NOW CLEAR.
[2018-09-02] MEDS: PANTOPRAZOLE 40 MG TABEC PO SCH (06:30)
--- NOTE | 2018-09-02 06:30 | NUR ---
PT AWAKE. DR. BENSON CAME AND TALKED TO PT.
[2018-09-02 06:37] LABS: BASOPHILS % (AUTO) 0.6 % (0.0-2.0); EOSINOPHILS # (AUTO) 0.1 K/uL (0-0.4); EOSINOPHILS % (AUTO) 1.6 % (0.0-4.0); HEMATOCRIT 31.3 % (36-48); HEMOGLOBIN 10.1 g/dL (12.0-16.0); LYMPHOCYTES # (AUTO) 2.2 K/uL (2.5-16.5); LYMPHOCYTES % (AUTO) 49.5 % (20.5-51.1); MEAN CORPUSCULAR HEMOGLOBIN 29 pg (27-31); MEAN CORPUSCULAR HGB CONC 32 g/dL (33-37); MEAN CORPUSCULAR VOLUME 88.2 fL (80-94); MONOCYTES # (AUTO) 0.6 K/uL (0.8-1.0); MONOCYTES % (AUTO) 13.7 % (1.7-9.3); NEUTROPHILS # (AUTO) 1.6 K/uL (1.8-7.7); NEUTROPHILS % (AUTO) 34.6 % (42.2-75.2); PLATELET COUNT (AUTO) 205 K/uL (140-450); RED BLOOD CELL COUNT(AUTO) 3.55 MIL/uL (4.20-5.40); RED CELL DISTRIBUTION WIDTH 13.8 % (11.6-13.7); WHITE BLOOD COUNT (AUTO) 4.5 K/uL (4.8-10.8)
[2018-09-02 06:48] LABS: ANION GAP 12.3 (8-16); CARBON DIOXIDE 24.5 mmol/L (21-32); CREATININE 0.7 mg/dL (0.6-1.3); POTASSIUM 3.8 mmol/L (3.5-5.1)
--- NOTE | 2018-09-02 06:58 | NUR ---
PT HAS BEEN KEPT NPO SINCE AFTER MIDNIGHT FOR COLONOSCOPY TODAY .
[2018-09-02 07:02] LABS: MAGNESIUM 2.1 mg/dL (1.8-2.4)
--- NOTE | 2018-09-02 07:40 | NUR ---
ENDORSED PT IN STABLE CONDITION TO AM NURSE.
--- NOTE | 2018-09-02 07:41 | NUR ---
RECEIVED BEDSIDE REPORT FROM SCRUB NURSE NURSE. PATIENT IS AWAKE, ALERT AND ORIENTEDX4. NO SIGNS OF DISTRESS ON RA. SKIN IS INTACT. PATIENT HAS WEAKNESS, FALL RISK PROTOCOL IN PLACE. SKIN HAS L INGUINAL SCAR S/P HERNIA REPAIR. IV ON L FA 22G INFUSING D5 1/2NS AT 100. CLEAN, DRY AND INTACT. PATIENT IS NPO FOR COLONOSCOPY. PATIENT IS CONTINENT. NO COMPLAINTS AT THIS TIME. BED IN LOW POSITION. CALL LIGHT WITHIN REACH. WILL CONTINUE TO MONITOR THE PATIENT
--- NOTE | 2018-09-02 08:21 | NUR ---
CALLED [facility] AND SPOKE WITH JHOANA, . SHE SAID THEY DO NOT HAVE ANY CONTRACTS WITH SNF'S, THEY ARE OPEN ACCESS. HAS TO BE A MEDICARE APPROVED FACILITY.
[2018-09-02] MEDS: DOCUSATE SODIUM 100 MG GELCAP PO SCH (09:41)
[2018-09-02] MEDS: LACTULOSE 20 GM/30 ML UDC PO SCH ×2 (09:41→13:06)
[2018-09-02] MEDS: SPIRONOLACTONE 25 MG TAB PO SCH (09:42)
[2018-09-02] MEDS: FUROSEMIDE 20 MG TAB PO SCH ×2 (09:42→20:10)
[2018-09-02] MEDS: levETIRAcetam 500 MG TAB PO SCH ×2 (09:42→20:10)
[2018-09-02] MEDS: CARVEDILOL 6.25 MG TAB PO SCH ×2 (09:43→20:09)
[2018-09-02] MEDS: POLYETHYLENE GLYCOL 17 GM/PKT PO SCH ×2 (09:43→13:06)
[2018-09-02] MEDS: ESCITALOPRAM 20 MG TAB PO SCH (09:43)
[2018-09-02] MEDS: ASPIRIN 81 MG TAB.CHEW PO SCH (09:43)
[2018-09-02] MEDS: SENNA 8.6 MG TAB PO SCH ×2 (09:43→13:06)
--- NOTE | 2018-09-02 09:52 | NUR ---
ADMINISTERED MEDS. PATIENT TOLERATED WELL. EDUCATED ON SIDE EFFECTS. PATIENT WANTS SOMETHING FOR AGITATION. WILL TELL DR ZHANG. BED IN LOW POSITION. CALL LIGHT WITHIN REACH. WILL CONTINUE TO MONITOR
[2018-09-02] MEDS ORDERED: LORazepam 2 MG/ML VIAL IM/IVP PRN (10:05)
--- NOTE | 2018-09-02 10:31 | NUR ---
PATIENT STATES, "I NEED SOMETHING FOR MY NERVES! IM SO AGITATED" ADMINISTERED PRN AGITATION MEDICATION ATIVAN. PATIENT TOLERATED WELL. EDUCATED ON SIDE EFFECTS. WILL CONTINUE TO MONITOR THE PATIENT. CALL LIGHT WITHIN REACH
--- NOTE | 2018-09-02 11:31 | NUR ---
PATIENT IS SLEEPING. NO SIGNS OF DISTRESS. SON AT BEDSIDE. WILL CONTINUE TO MONITOR THE PATIENT. BED IN LOW POSITION. CALL LIGHT WITHIN REACH
--- NOTE | 2018-09-02 12:50 | NUR ---
ALL JEWELRY REMOVED AND GIVEN TO SON IN A BAG. JEWELRY NEEDS TO BE REMOVED BEFORE COLONOSCOPY.
--- NOTE | 2018-09-02 13:03 | NUR ---
CALLED [facility] AND SPOKE WITH JOHNNY AND INFORMED HER THAT PATIENT WAS IN THE HOSPITAL. I NEW ORDER FOR HOME HEALTH WILL BE NEEDED IF THE PATIENT GOES HOME AND IF THEY WANT TO CONTINUE NURSING AND P.T.
--- NOTE | 2018-09-02 13:12 | NUR ---
ADMINISTERED MEDS AND PRN PAIN MED. EDUCATED ON SIDE EFFECTS. PATIENT VERBALIZED UNDERSTANDING. PATIENT TOLERATED WELL. WILL CONTINUE TO MONITOR THE PATIENT. SON AT BEDSIDE
--- NOTE | 2018-09-02 14:29 | NUR ---
PATIENT SITTING IN BED, NO SIGNS OF DISTRESS. BED IN LOW POSITION. CALL LIGHT WITHIN REACH. PATIENT ABLE TO MAKE NEEDS KNOWN
[2018-09-02] MEDS ORDERED: fentaNYL 0.05 MG/ML VIAL ONE (15:32)
[2018-09-02] MEDS ORDERED: MIDAZOLAM 2 MG/2 ML VIAL ONE ×2 (15:32→15:33)
[2018-09-02] MEDS ORDERED: diphenhydrAMINE 50 MG/ML VIAL ONE (15:33)
--- NOTE | 2018-09-02 16:00 | NUR ---
PATIENT LEFT IN STABLE CONDITION WITH OR NURSE.
[2018-09-02] MEDS: MIDAZOLAM 2 MG/2 ML VIAL IVP ONE ×2 (16:47→17:47)
[2018-09-02] MEDS: fentaNYL 0.05 MG/ML VIAL IVP ONE ×2 (16:48→17:46)
--- NOTE | 2018-09-02 17:40 | NUR ---
patient back from or. b/p 106/64 hr 61 100% ra rr 16 temp 99.4. patient is drowsy but easily arousable
--- NOTE | 2018-09-02 18:38 | NUR ---
PATIENT ATTEMPTING TO EAT AT THIS TIME. POST OP VITALS ARE WNL, SEE VITALS
--- NOTE | 2018-09-02 19:05 | NUR ---
GAVE BEDSIDE REPORT TO CINDER PIT WORKER NURSE. PATIENT ENDORSED IN STABLE CONDITION
--- NOTE | 2018-09-02 19:30 | NUR ---
RECEIVED BEDSIDE REPORT FROM AYLIN WILSON, PATIENT IN BED, AT BEDSIDE. ON RA, IV IN LEFT FA 22 G, S/P COLONOSCOPY, C/O OF RECTAL PAIN ASKED FOR MORPHINE NOTICED DR MARGARETTE FRYE PATIENT STATED "THAT DONT DO SHIT FOR ME" EDUCATION PROVIDED. PATIENT EXPRESSED CONCERNS ABOUT FEELING SAD NOTIFIED THAT ORDERED LEXAPRO DAILY AND ALL READY RECEIVED DOSE . PATIENT REQUESTED ATIVAN TO SLEEP, EXPLAINED ATIVAN IS D/C AND NOT FOR SLEEPING ITS FOR ANXIETY. PATIENT ASKED FOR SLEEPING PILL WILL CALL DR SOLIMAN FOR ORDERS.
[2018-09-02] MEDS: ATORVASTATIN 20 MG TAB PO SCH (20:09)
[2018-09-02] MEDS: HYDROcodone/APAP 5/325 MG 1 TAB TAB PO PRN (20:22)
--- NOTE | 2018-09-02 20:22 | NUR ---
PATIENT CRYING DUE TO WANTING SLEEPING PILL. CALLED DR SOLIMAN FOR ORDERS
--- NOTE | 2018-09-02 20:24 | NUR ---
PATIENT C/O PAIN WILL GIVE NORCO. DUE MEDICATIONS GIVEN.
--- NOTE | 2018-09-02 20:54 | NUR ---
GAVE MELATONIN FOR INSOMNIA
[2018-09-02] MEDS ORDERED: MELATONIN 3 MG TAB PO SCH (21:00)
--- NOTE | 2018-09-02 22:09 | NUR ---
PATIENT SLEEPING IN BED NO SIGNS OF DISTRESS, WILL CONTINUE TO MONITOR
--- NOTE | 2018-09-02 23:41 | NUR ---
V/S TAKEN PATIENT SLEEPING IN BED WILL CONTINUE TO MONITOR
--- NOTE | 2018-09-03 01:15 | NUR ---
PATIENT SLEEPING IN BED NO SIGNS OF DISTRESS, CALL LIGHT WITHIN REACH, BED ALARM ON.
--- NOTE | 2018-09-03 02:56 | NUR ---
SLEEPING IN BED, NO SIGNS OF DISTRESS, WILL CONTINUE TO MONITOR.
--- NOTE | 2018-09-03 04:30 | NUR ---
PATIENT C/O PAIN WILL GIVE NORCO
[2018-09-03] MEDS: HYDROcodone/APAP 5/325 MG 1 TAB TAB PO PRN ×2 (04:38→10:22)
[2018-09-03] MEDS: PANTOPRAZOLE 40 MG TABEC PO SCH (05:28)
--- NOTE | 2018-09-03 05:35 | NUR ---
GAVE DUE PROTONIX EDUCATION PROVIDED
[2018-09-03 06:58] LABS: ANION GAP 14.2 (8-16); CARBON DIOXIDE 25.6 mmol/L (21-32); CREATININE 0.8 mg/dL (0.6-1.3); POTASSIUM 3.8 mmol/L (3.5-5.1)
[2018-09-03 07:00] LABS: MAGNESIUM 1.7 mg/dL (1.8-2.4); PHOSPHORUS 3.8 mg/dL (2.5-4.9)
[2018-09-03 07:04] LABS: BASOPHILS % (AUTO) 0.6 % (0.0-2.0); EOSINOPHILS # (AUTO) 0.1 K/uL (0-0.4); EOSINOPHILS % (AUTO) 2.2 % (0.0-4.0); HEMATOCRIT 29.7 % (36-48); HEMOGLOBIN 9.9 g/dL (12.0-16.0); LYMPHOCYTES # (AUTO) 2.4 K/uL (2.5-16.5); LYMPHOCYTES % (AUTO) 52.6 % (20.5-51.1); MEAN CORPUSCULAR HEMOGLOBIN 29 pg (27-31); MEAN CORPUSCULAR HGB CONC 33 g/dL (33-37); MEAN CORPUSCULAR VOLUME 87.6 fL (80-94); MONOCYTES # (AUTO) 0.6 K/uL (0.8-1.0); MONOCYTES % (AUTO) 13.4 % (1.7-9.3); NEUTROPHILS # (AUTO) 1.4 K/uL (1.8-7.7); NEUTROPHILS % (AUTO) 31.2 % (42.2-75.2); PLATELET COUNT (AUTO) 194 K/uL (140-450); RED BLOOD CELL COUNT(AUTO) 3.39 MIL/uL (4.20-5.40); WHITE BLOOD COUNT (AUTO) 4.6 K/uL (4.8-10.8)
--- NOTE | 2018-09-03 07:18 | NUR ---
ENDORSED PATIENT TO DAY SHIFT NURSE, PATIENT STABLE.
--- NOTE | 2018-09-03 07:19 | NUR ---
RECEIVED REPORT FROM PM NURSE AT BEDSIDE. PT IS S/P COLONOSCOPY AND INGUINAL HERNIA REPAIR. PT AOX4. SLEEPING COMFORTABLY IN HER BED. HAS LFT FA IV ACCESS, SL. INTRODUCED SELF AND UPDATED BOARD. POSSIBLE DC TO HOME TODAY. CALL LIGHT WITHIN PT REACH. NO SIGN OF DISTRESS NOTED . WILL CONTINUE TO MONITOR PT.
--- NOTE | 2018-09-03 07:30 | NUR ---
RECEIVED REPORT FROM LAB REGARDING TROPONIN LEVEL OF PT 0.225. CALLED RESIDENT AND WENT TO ROOM, RESIDENT NOT IN ROOM. WILL CALL LATER.
[2018-09-03 07:53] VITALS: BP 117/76
[2018-09-03] MEDS: levETIRAcetam 500 MG TAB PO SCH (08:44)
[2018-09-03] MEDS: FUROSEMIDE 20 MG TAB PO SCH (08:45)
[2018-09-03] MEDS: SPIRONOLACTONE 25 MG TAB PO SCH (08:45)
[2018-09-03] MEDS: ESCITALOPRAM 20 MG TAB PO SCH (08:45)
[2018-09-03] MEDS: CARVEDILOL 6.25 MG TAB PO SCH (08:46)
[2018-09-03] MEDS ORDERED: LACTULOSE 20 GM/30 ML UDC PO SCH (09:00)
[2018-09-03] MEDS ORDERED: MAGNESIUM OXIDE 400 MG TAB PO SCH (09:00)
[2018-09-03] MEDS: ASPIRIN 81 MG TAB.CHEW PO SCH (09:00)
--- NOTE | 2018-09-03 09:18 | NUR ---
Faxed clinicals to [facility] . Spoke with Kristen and will update her once pt is discharged.
--- NOTE | 2018-09-03 10:13 | NUR ---
ADMINISTERED MEDS TO PT . PT LOOKS DISTRESSED, STATES THAT SHE GOT BAD PHONE CALL AND IS HAVING ANXIETY ATTACK. ASKING FOR MEDS. CALLED MD, WILL INPUT MEDS TO MANAGE HER ANXIETY. CALL LIGHT WITHIN PT REACH. WILL CONTINUE TO MONITOR PT.
[2018-09-03] MEDS ORDERED: LORazepam 2 MG/ML VIAL IM/IVP PRN (10:15)
--- NOTE | 2018-09-03 12:30 | NUR ---
CHECKED ON PT. SLEEPING ON HER BED. OFFERED LUNCH AT HER BEDSIDE. PT STATES SHE IS GOOD. NO DISTRESS NOTED. PT HAVING HER LUNCH. PT TO BE DISCHARGED TODAY. WILL CONTINUE TO MONITOR PT.
[2018-09-03] MEDS ORDERED: ACET650S53 GT (12:32)
[2018-09-03] MEDS ORDERED: ACET-2619 PO (12:40)
--- NOTE | 2018-09-03 15:25 | NUR ---
EDUCATED PATIENT AND DAUGHTER JOE ON DISEASE PROCESS, ABN S/SX, WHEN TO GO TO THE ER, EDUCATED ON MEDS AND CAN SOCIAL WELFARE RESEARCH WORKER FROM ANY PHARMACY, EDUCATED ON FOLLOW UP W PCP AND SURGEON, PATIENT AND DAUGHTER VERBALIZED UNDERSTANDING. DAUGHTER JOE SIGNED PER PATIENTS REQUEST. PNA AND FLU VACCINE UP TO DATE.
== END 2018-09-03 15:25 | disposition home or self-care (01) | DRG 205 ==
LOC: MED 23:27 → MTU 09-01 03:17
PROVIDERS: ADMIT General Practice; ATTEND General Practice
PROC: 0DJD8ZZ Inspection of Lower Intestinal Tract, Via Natural or Artificial Opening Endoscopic (ICD-10-PCS; principal; 2018-09-02 15:00)
DX: M94.0 Chondrocostal junction syndrome [Tietze] (principal); I50.43 Acute on chronic combined systolic (congestive) and diastolic (congestive) heart failure; E44.0 Moderate protein-calorie malnutrition; K57.92 Diverticulitis of intestine, part unspecified, without perforation or abscess without bleeding; E83.42 Hypomagnesemia; K21.9 Gastro-esophageal reflux disease without esophagitis; I11.0 Hypertensive heart disease with heart failure; G40.909 Epilepsy, unspecified, not intractable, without status epilepticus; F17.210 Nicotine dependence, cigarettes, uncomplicated; F12.90 Cannabis use, unspecified, uncomplicated; D64.9 Anemia, unspecified; F19.10 Other psychoactive substance abuse, uncomplicated; E78.5 Hyperlipidemia, unspecified; K56.41 Fecal impaction; K58.9 Irritable bowel syndrome, unspecified; K64.8 Other hemorrhoids; G89.29 Other chronic pain; Z68.27 Body mass index [BMI] 27.0-27.9, adult; Z88.0 Allergy status to penicillin; Z88.8 Allergy status to other drugs, medicaments and biological substances; Z79.82 Long term (current) use of aspirin; Z79.899 Other long term (current) drug therapy; Z86.73 Personal history of transient ischemic attack (TIA), and cerebral infarction without residual deficits; Z82.3 Family history of stroke; Z76.5 Malingerer [conscious simulation]
CPT/HCPCS: 36415; 80048; 80053; 80305; 81001; 82150; 83605; 83690; 83735; 83880; 84100; 84436; 84443; 84484; 85025; 85610; 85730; 87081; 93005; 96374; 96375; 96376; 99285; J1200; J1644; J2060; J2250; J2270; J2405; J3010; J7030

== ENCOUNTER 2018-09-03 21:07 | Emergency (ER) | payer OTHER ==
[~2018-09-03] VITALS: Ht 157.5 cm; Wt 68.0 kg
[~2018-09-03 21:07] MED LIST changes: +ACET-2619 PO; +ACET650S53 GT
[2018-09-03 21:19] VITALS: BP 136/79
--- NOTE | 2018-09-03 21:22 | NUR ---
TO LOBBY A/W BED, VIA W/C, NITIN ANGEL NOTED
--- NOTE | 2018-09-03 21:54 | NUR ---
PT BROUGHT TO BED 12 BY WHEELCHAIR
--- NOTE | 2018-09-03 22:17 | NUR ---
BIB WITH C/O OF SEVERE PAIN IN ABD, SHOELDERS, & LEGS. STATES SHE WAS RELEASED FROM THE HOSPITAL TODAY AFTER HAVING A COLONOSCOPY YESTERDAY. STATES SHE WENT OUT TO DINNER AND THE PAIN STARTED AFTER SHE ATE. HERNIA SURGERY 08/10/18.
--- NOTE | 2018-09-03 22:46 | NUR ---
PATIENT STATES SEVERE PAIN. DR CHANEY MADE AWARE.
--- NOTE | 2018-09-03 23:09 | NUR ---
DR CHANEY AT BEDSIDE.
[2018-09-03] MEDS ORDERED: MORPHINE SULFATE 4 MG/ML SYR IVP ONE (23:20)
[2018-09-03] MEDS ORDERED: NACL 0.9% 500 ML IV ONE (23:20)
[2018-09-03] MEDS ORDERED: ONDANSETRON 4 MG/2 ML VIAL IVP ONE (23:20)
[2018-09-04] MEDS ORDERED: MORPHINE SULFATE 4 MG/ML SYR IVP ONE (00:25)
--- NOTE | 2018-09-04 00:35 | NUR ---
1 MG OF MORPHINE GIVEN IM INSTEAD OF IVP DUE TO IV INFULTRATION, PER DR CHANEY.
[2018-09-04] MEDS ORDERED: MORPHINE SULFATE 4 MG/ML SYR IM ONE ×2 (00:40→01:00)
[2018-09-04 01:00] VITALS: BP 132/71
--- NOTE | 2018-09-04 01:00 | NUR ---
DISCHARGE INSTRUCITONS GIVEN. 07/20 PAIN, TOLERABLE. VSS. WHEEL CHAIR ASSISTED TO VEHICLE. VERBALIZED UNDERSTANDING OF DC INSTRUCTIONS. ALL QUESTIONS ANSWERED.
== END 2018-09-04 01:00 | disposition home or self-care (01) ==
LOC: MED 21:07
DX: R10.31 Right lower quadrant pain (principal); R11.10 Vomiting, unspecified; I11.0 Hypertensive heart disease with heart failure; I50.9 Heart failure, unspecified; K21.9 Gastro-esophageal reflux disease without esophagitis; Z79.82 Long term (current) use of aspirin; Z79.1 Long term (current) use of non-steroidal anti-inflammatories (NSAID); Z79.2 Long term (current) use of antibiotics; Z79.899 Other long term (current) drug therapy; Z88.0 Allergy status to penicillin; Z88.8 Allergy status to other drugs, medicaments and biological substances
CPT/HCPCS: 96361; 96374; 96375; 99283; J2270; J2405; J7030

== ENCOUNTER 2018-11-10 02:15 | Emergency (ER) | payer OTHER ==
[~2018-11-10] VITALS: Ht 167.6 cm; Wt 81.6 kg
[~2018-11-10 02:15] MED LIST changes: -ACET650S53 GT; -HYDR-5122 PO; -SIME80CT27 PO
--- NOTE | 2018-11-10 02:15 | NUR ---
57/F BIBA FROM HOME, C/O 03/19 R INGUINAL HERNIA PAIN, RADIATING TO SUPRAPUBIC AND CHEST, WORSENING SINCE LAST NIGHT. PT HAS HAD HERNIA REPAIR SURGERY (08/10/18), HAS BEEN FOLLOWING UP WITH SURGEON DR. TREADWELL, NEXT APPOINTMENT TODAY. PT REPORTS N/V X4 EPISODES. LBM 1.5 DAYS AGO, DENIES DIARRHEA OR CONSTIPATION. PT AOX4, GCS 15, PERRLA 3MM, IN MODERATE AMOUNT OF DISTRESS FROM PAIN, SKIN NORMAL WARM AND DRY, RR EVEN AND UNLABORED, LUNG SOUNDS CLEAR BL, HR EVEN AND REGULAR, NSR WITH ST DEPRESSION ON MONITOR. BS ACTIVE X4, ABD SOFT FLAT TENDER TO RLQ. HX CHF, GERD, HTN, SZ, HERNIA REPAIR (08/10/18) PAIN RX HYDROCODONE WITH NO RELIEF
--- NOTE | 2018-11-10 02:15 | NUR ---
PT GLORIA BLS. TAKEN TO BED 6
[2018-11-10 02:19] VITALS: BP 183/155
[2018-11-10] MEDS ORDERED: TRAM50TA1 PO (02:33)
[2018-11-10] MEDS ORDERED: ATI.5 PO (02:33)
[2018-11-10] MEDS ORDERED: TRAZ-343 PO (02:33)
[2018-11-10] MEDS ORDERED: FURO-570 PO (02:33)
[2018-11-10] MEDS ORDERED: OMEP20TC12 PO (02:33)
[2018-11-10] MEDS ORDERED: LOSA25TA43 PO (02:33)
[2018-11-10] MEDS ORDERED: CARV6.25 PO (02:33)
[2018-11-10] MEDS ORDERED: ONDA8TAB PO (02:33)
[2018-11-10] MEDS ORDERED: HYDR-5122 PO (02:33)
[2018-11-10] MEDS ORDERED: RANI300T10 PO (02:33)
[2018-11-10] MEDS ORDERED: NACL 0.9% 1,000 ML IV ONE (02:40)
[2018-11-10] MEDS ORDERED: ONDANSETRON 4 MG/2 ML VIAL IVP ONE (02:40)
[2018-11-10] MEDS ORDERED: MORPHINE SULFATE 4 MG/ML SYR IVP ONE ×2 (02:40→03:15)
[2018-11-10 03:08] LABS: BASOPHILS % (AUTO) 0.6 % (0.0-2.0); EOSINOPHILS # (AUTO) 0.1 K/uL (0-0.4); EOSINOPHILS % (AUTO) 0.8 % (0.0-4.0); LYMPHOCYTES # (AUTO) 2.5 K/uL (2.5-16.5); LYMPHOCYTES % (AUTO) 42.2 % (20.5-51.1); MEAN CORPUSCULAR HEMOGLOBIN 29 pg (27-31); MEAN CORPUSCULAR HGB CONC 32 g/dL (33-37); MEAN CORPUSCULAR VOLUME 88.2 fL (80-94); MONOCYTES # (AUTO) 0.5 K/uL (0.8-1.0); MONOCYTES % (AUTO) 8.1 % (1.7-9.3); NEUTROPHILS # (AUTO) 2.9 K/uL (1.8-7.7); NEUTROPHILS % (AUTO) 48.3 % (42.2-75.2); PLATELET COUNT (AUTO) 182 K/uL (140-450)
--- NOTE | 2018-11-10 03:08 | NUR ---
PT LAYING IN BED, AT BEDSIDE. VSS. REPORTS SOB, PLACED ON O2 2L NC. VSS, RR EVEN AND UNLABORED. REPORTS UNRELIEVED RLQ PAIN RADIATING TO CHEST AND SUPRAPUBIC DESPITE MORPHINE IVP. PT ALSO UNABLE TO GO TO RESTROOM DUE TO PAIN, REQUESTED FOR IN AND OUT CATH. DR JACINTO MADE AWARE. VERBALIZED INDICATION, RISKS AND BENEFITS OF PROCEDURE, PT VERBALIZED UNDERSTANDING, TOLERATED WELL, 300ML CLEAR YELLOW URINE COLLECTED.
--- NOTE | 2018-11-10 03:11 | NUR ---
PT TAKEN TO CT
[2018-11-10] MEDS ORDERED: MORPHINE SULFATE 2 MG/ML SYR IVP ONE (03:15)
[2018-11-10 03:20] LABS: ANION GAP 12.3 (8-16); CARBON DIOXIDE 29.3 mmol/L (21-32); CREATININE 0.9 mg/dL (0.6-1.3); POTASSIUM 3.6 mmol/L (3.5-5.1)
[2018-11-10 03:26] LABS: ALBUMIN 3.8 g/dL (3.4-5.0); TOTAL BILIRUBIN 0.2 mg/dL (0.0-1.0)
--- NOTE | 2018-11-10 03:28 | NUR ---
PT RETURN FROM CT
[2018-11-10 03:56] LABS: APPEARANCE,URINE SL CLOUDY (CLEAR); BILIRUBIN,URINE NEGATIVE (NEGATIVE); BLOOD, URINE 1+ (NEGATIVE); COLOR,URINE YELLOW (YELLOW); LEUKOCYTE ESTERASE ,URINE NEGATIVE (NEGATIVE); NITRITE, URINE NEGATIVE (NEGATIVE); UGLUCOSE TRACE (NEGATIVE)
[2018-11-10 04:07] LABS: RBC,URINE 0-5 /HPF (0-5); WBC,URINE 0-5 /HPF (0-5)
--- NOTE | 2018-11-10 04:30 | NUR ---
PT SLEEPING IN BED, AROUSABLE TO NAME. VSS, RR EVEN AND UNLABORED. PT REPORTS IMPROVEMENT IN R INGUINAL HERNIA PAIN, 3/10 AT THIS TIME. ALL NEEDS MET AT THIS TIME.
--- NOTE | 2018-11-10 05:30 | NUR ---
PT SLEEPING IN BED, AROUSABLE TO NAME. VSS, RR EVEN AND UNLABORED. PT REPORTS IMPROVEMENT IN R INGUINAL HERNIA PAIN, 3/10 AT THIS TIME. ALL NEEDS MET.
[2018-11-10] MEDS ORDERED: KETOROLAC 30 MG/ML VIAL IVP ONE (05:40)
[2018-11-10 06:20] VITALS: BP 112/71
--- NOTE | 2018-11-10 06:20 | NUR ---
PT'S AT BEDSIDE TO TOWEL ROLLING MACHINE OPERATOR PT
--- NOTE | 2018-11-10 06:31 | NUR ---
Patient discharged with v/s stable. Written and verbal after care instructions given and explained. Patient alert, oriented and verbalized understanding of instructions. Ambulatory with steady gait. All questions addressed prior to discharge. ID band removed. Patient advised to follow up with PMD. Rx of BENTYL, COLACE, ATIVAN given. Patient educated on indication of medication including possible reaction and side effects. Opportunity to ask questions provided and answered.
== END 2018-11-10 06:31 | disposition home or self-care (01) ==
LOC: MED 02:15
DX: R10.31 Right lower quadrant pain (principal); R07.9 Chest pain, unspecified; I11.0 Hypertensive heart disease with heart failure; K21.9 Gastro-esophageal reflux disease without esophagitis; I50.9 Heart failure, unspecified; Z79.891 Long term (current) use of opiate analgesic; Z79.82 Long term (current) use of aspirin; Z79.899 Other long term (current) drug therapy; Z88.0 Allergy status to penicillin; Z88.8 Allergy status to other drugs, medicaments and biological substances; Z98.890 Other specified postprocedural states
CPT/HCPCS: 36415; 74176; 80053; 81001; 81025; 83690; 84484; 85025; 93005; 96374; 96375; 96376; 99284; C1758; J1885; J2270; J2405; J7030

== ENCOUNTER 2018-11-13 05:05 | Inpatient (IN) | payer OTHER ==
[~2018-11-13] VITALS: Ht 205.7 cm; Wt 71.7 kg
[2018-11-13 05:05] VITALS: BP 185/106
[~2018-11-13 05:05] MED LIST changes: -ACET-2619 PO; +ATI.5 PO; +CARV6.25 PO; -CARV6.252 PO; +FURO-570 PO; -FURO20TA8 PO; +HYDR-5122 PO; +LOSA25TA43 PO; +OMEP20TC12 PO; +ONDA8TAB PO; +RANI300T10 PO; +TRAM50TA1 PO; +TRAZ-343 PO
--- NOTE | 2018-11-13 05:05 | NUR ---
BIB EMS, 57 Y/O FEMALE PRESENTS TO ED WITH C/O RLQ ABD PAIN X1 DAY. PT S/P HERNIA REPAIR. STATES NAUSEA WITHOUT VOMITING. 10/10 PAIN. TENDER TO PALPATION AND PAIN WITH POSITION CHANGE. 6" INCISION. WELL APPROXIMATED, NO REDNESS, NO EDEMA, NO DRAINAGE. POSTIONED IN BED FOR COMFORT WITH X2 SIDE RAILS UP AND HOB ELEVATED. ER MD AWARE. CONTINUE TO MONITOR.
[2018-11-13] MEDS ORDERED: NACL 0.9% 1,000 ML IV ONE (05:26)
[2018-11-13] MEDS ORDERED: MORPHINE SULFATE 2 MG/ML SYR IVP ONE (05:30)
[2018-11-13] MEDS ORDERED: ONDANSETRON 4 MG/2 ML VIAL IVP ONE (05:30)
--- NOTE | 2018-11-13 06:00 | NUR ---
PT STATES PAIN RELEIVED. 11/17 BUT TOLLERABLE. AT BEDSIDE. CONTINUE TO MONITOR.
--- NOTE | 2018-11-13 06:05 | NUR ---
PT ESCORTED TO CT VIA GURNEY. ACCOMPANIED BY
[2018-11-13 06:11] LABS: BASOPHILS % (AUTO) 0.4 % (0.0-2.0); EOSINOPHILS % (AUTO) 0.9 % (0.0-4.0); HEMATOCRIT 34.9 % (36-48); HEMOGLOBIN 11.6 g/dL (12.0-16.0); LYMPHOCYTES # (AUTO) 1.4 K/uL (2.5-16.5); LYMPHOCYTES % (AUTO) 23.6 % (20.5-51.1); MEAN CORPUSCULAR HEMOGLOBIN 29 pg (27-31); MEAN CORPUSCULAR HGB CONC 33 g/dL (33-37); MEAN CORPUSCULAR VOLUME 88.4 fL (80-94); MONOCYTES # (AUTO) 0.9 K/uL (0.8-1.0); MONOCYTES % (AUTO) 15.7 % (1.7-9.3); NEUTROPHILS # (AUTO) 3.4 K/uL (1.8-7.7); NEUTROPHILS % (AUTO) 59.4 % (42.2-75.2); PLATELET COUNT (AUTO) 160 K/uL (140-450); RED BLOOD CELL COUNT(AUTO) 3.95 MIL/uL (4.20-5.40); RED CELL DISTRIBUTION WIDTH 15.3 % (11.6-13.7); WHITE BLOOD COUNT (AUTO) 5.8 K/uL (4.8-10.8)
[2018-11-13 06:12] LABS: ANION GAP 10.9 (8-16); CARBON DIOXIDE 26.5 mmol/L (21-32); CREATININE 0.8 mg/dL (0.6-1.3); POTASSIUM 3.4 mmol/L (3.5-5.1)
[2018-11-13 06:22] LABS: ALBUMIN 3.4 g/dL (3.4-5.0); TOTAL BILIRUBIN 0.3 mg/dL (0.0-1.0)
[2018-11-13] MEDS ORDERED: MORPHINE SULFATE 4 MG/ML SYR IVP ONE (07:55)
[2018-11-13] MEDS: DEXT 5% /NACL 0.9% 1,000 ML IV SCH (08:26)
[2018-11-13] MEDS ORDERED: ACETAMINOPHEN 325 MG TAB PO PRN (08:30)
[2018-11-13] MEDS ORDERED: ONDANSETRON 4 MG/2 ML VIAL IM/IVP PRN (08:30)
[2018-11-13] MEDS ORDERED: HYDROcodone/APAP 7.5/325 MG 1 TAB PO PRN (08:30)
[2018-11-13] MEDS ORDERED: DOCUSATE SODIUM 100 MG GELCAP PO PRN (08:30)
--- NOTE | 2018-11-13 08:55 | NUR ---
Patient will be admitted to care of Dr. Em. Admited to Med/Surg. Will go to room 105A. Belongings list completed. Report to Karen VIERA.
[2018-11-13 09:00] VITALS: BP 165/94
--- NOTE | 2018-11-13 09:00 | NUR ---
RECEIVED BEDSIDE REPORT FROM ER NURSE. PATIENT ON MED SURGE FLOOR AND STANDARD PRECAUTIONS IN PLACE. PATIENT AMBULATORY, CONTINENT, AND ON ROOM AIR, SKIN INTACT EXCEPT FOR RLQ HERNIA REPAIR, DRESSING CLEAN DRY AND INTACT. IV ON R FA 22G INFUSING D5 NS AT 60, IV ASYMPTOMATIC PATENT AND INTACT. BED IN LOW POSITION, CALL LIGHT WITHIN REACH, SIDE RAILS X2 UP
[2018-11-13] MEDS ORDERED: HYDROmorphone 1 MG/ML AMP IVP SCH (09:08)
--- NOTE | 2018-11-13 09:36 | NUR ---
ADMINISTERED DILAUDID IVP ONCE FOR 10/10 ABDOMINAL PAIN. PATIENT TOLERATED WELL. WILL CONTINUE TO MONITOR
--- NOTE | 2018-11-13 09:55 | NUR ---
PATIENT NOW ON TELE MONITOR FOR EF 17%
--- NOTE | 2018-11-13 11:18 | NUR ---
PATIENT GETTING US DONE AT BEDSIDE
[2018-11-13] MEDS ORDERED: traZODone 50 MG TAB PO PRN (11:30)
[2018-11-13 12:00] VITALS: BP 141/89
--- NOTE | 2018-11-13 12:12 | NUR ---
PATIENT PICKED UP FOR CT OF ABDOMEN
[2018-11-13 12:15] LABS: CHOL/HDL RATIO 1.4 (1-4.5); FREE T4 (FREE THYROXINE) 1.04 ng/dL (0.76-1.46); MAGNESIUM 1.7 mg/dL (1.8-2.4); PHOSPHORUS 2.8 mg/dL (2.5-4.9); THYROID STIMULATING HORMONE 0.39 uIU/mL (0.34-3.74)
[2018-11-13] MEDS: MORPHINE SULFATE 2 MG/ML SYR IVP PRN ×3 (12:41→20:03)
[2018-11-13] MEDS ORDERED: POTASSIUM CHLORIDE 10 MEQ TABER PO SCH (14:00)
[2018-11-13] MEDS ORDERED: MAGNESIUM OXIDE 400 MG TAB PO SCH (14:00)
--- NOTE | 2018-11-13 14:47 | NUR ---
PATIENT SLEEPING, ON ROOM AIR, NO DISTRESS NOTED
--- NOTE | 2018-11-13 15:10 | NUR ---
REVIEWED EKG ORDER WITH DR. TASHI AGUERO CHANGE HOSPICE MUSIC THERAPY TO READ: DR. SINCLAIR
[2018-11-13 16:00] VITALS: BP 154/94
--- NOTE | 2018-11-13 16:15 | NUR ---
DR. TREADWELL AND DR. AGUERO AT BEDSIDE ASSESSING PATIENTS INCISION
[2018-11-13 16:22] LABS: APPEARANCE,URINE CLEAR (CLEAR); BILIRUBIN,URINE NEGATIVE (NEGATIVE); BLOOD, URINE 1+ (NEGATIVE); COLOR,URINE YELLOW (YELLOW); LEUKOCYTE ESTERASE ,URINE NEGATIVE (NEGATIVE); NITRITE, URINE NEGATIVE (NEGATIVE); UGLUCOSE TRACE (NEGATIVE)
[2018-11-13 16:28] LABS: BARBITURATE, URINE NEG. ng/ml (NEG <=200); BENZODIAZEPINE, URINE NEG. ng/mL (NEG <=200); CANNABINOID, URINE NEG. ng/mL (NEG <=50); COCAINE, URINE NEG. ng/mL (NEG <=300); OPIATE, URINE POS. ng/mL (NEG <=2000); PHENCYCLIDINE SCREEN,URINE NEG. ng/mL (NEG <=25)
[2018-11-13 16:34] LABS: WBC,URINE 0-5 /HPF (0-5)
--- NOTE | 2018-11-13 19:12 | NUR ---
GAVE BEDSIDE REPORT TO AYLIN COVARRUBIAS. PATIENT ENDORSED IN STABLE CONDITION
--- NOTE | 2018-11-13 19:13 | NUR ---
RECEIVED REPORT FROM AM NURSE. PT AWAKE, ALERT AND ORIENTED X 4. ABLE TO VERBALIZE NEEDS. PT AT BEDSIDE. PT RT AC 20G INTACT AND INFUSING WELL. COMMODE AT BESIDE. SAFETY MEASURES IN PLACE. CALL LIGHT WITHIN REACH. WILL CONTINUE TO MONITOR.
[2018-11-13 20:00] VITALS: BP 155/96
[2018-11-13] MEDS: levETIRAcetam 100 MG/ML ORASYR PO SCH (21:20)
--- NOTE | 2018-11-13 22:00 | NUR ---
ROUNDED ON PT. PT SLEEPING, BREATHING EQUAL AND UNLABORED. SAFETY MEASURES IN PLACE. COMMODE AT BEDSIDE. CALL LIGHT WITHIN REACH.
[2018-11-14] VITALS: BP 146/93
[2018-11-14] MEDS: DEXT 5% /NACL 0.9% 1,000 ML IV SCH ×2 (01:05→18:29)
[2018-11-14] MEDS: MORPHINE SULFATE 2 MG/ML SYR IVP PRN ×6 (01:06→21:33)
--- NOTE | 2018-11-14 01:06 | NUR ---
PT MEDICATED FOR 12/17 ABD PAIN
--- NOTE | 2018-11-14 03:06 | NUR ---
START UP SPECIALIST CALLED TO INFORM THAT PT HAD SMALL RUN OF V-TACH.
--- NOTE | 2018-11-14 03:10 | NUR ---
MD RESIDENT NOTIFIED OF SMALL RUN OF V-TACH
[2018-11-14 04:00] VITALS: BP 161/103
--- NOTE | 2018-11-14 04:43 | NUR ---
PT GIVEN PAIN MEDICATION FOR ABD PAIN
--- NOTE | 2018-11-14 05:00 | NUR ---
PT PB REASSESSED
[2018-11-14 06:14] LABS: T4 (THYROXINE) 6.4 ug/dL (4.5-12.0)
--- NOTE | 2018-11-14 07:10 | NUR ---
ENDORSED TO AM NURSE. PT IN STABLE CONDITION
--- NOTE | 2018-11-14 07:11 | NUR ---
RECEIVED BEDSIDE REPORT FROM AYLIN COVARRUBIAS. PATIENT ON TELE MONITOR AND STANDARD PRECAUTIONS IN PLACE. PATIENT ON ROOM AIR, BEDSIDE COMMODE IN PLACE, R SIDED HERNIA REPAIR OPEN TO AIR. IV ON R AC 20G INFUSING D5NS AT 60, IV ASYMPTOMATIC PATENT AND INTACT. BED IN LOW POSITION, CALL LIGHT WITHIN REACH, SIDE RAILS X2 UP
[2018-11-14 07:36] LABS: ANION GAP 10.4 (8-16); CREATININE 0.6 mg/dL (0.6-1.3); POTASSIUM 3.4 mmol/L (3.5-5.1)
[2018-11-14 07:38] LABS: MAGNESIUM 1.9 mg/dL (1.8-2.4); PHOSPHORUS 3.1 mg/dL (2.5-4.9)
--- NOTE | 2018-11-14 07:48 | NUR ---
PATIENT HAS BEEN SCREENED AND CATEGORIZED HIGH NUTRITION RISK. PATIENT WILL BE SEEN WITHIN 1-2 DAYS OF ADMISSION. 11/14/18-11/15/[address] Addendum: 11/14/18 at [address] ADDENDUM: PATIENT HAS BEEN RE-SCREENED AND RE-CATEGORIZED MODERATE NUTRITION RISK. PATIENT WILL BE SEEN WITHIN 3-5 DAYS OF ADMISSION. 11/16/18-11/18/[address]
[2018-11-14 08:00] VITALS: BP 162/99
[2018-11-14 08:05] LABS: BASOPHILS % (AUTO) 0.4 % (0.0-2.0); EOSINOPHILS # (AUTO) 0.1 K/uL (0-0.4); EOSINOPHILS % (AUTO) 1.3 % (0.0-4.0); HEMATOCRIT 32.3 % (36-48); HEMOGLOBIN 10.8 g/dL (12.0-16.0); LYMPHOCYTES # (AUTO) 1.4 K/uL (2.5-16.5); LYMPHOCYTES % (AUTO) 29.7 % (20.5-51.1); MEAN CORPUSCULAR HEMOGLOBIN 29 pg (27-31); MEAN CORPUSCULAR HGB CONC 33 g/dL (33-37); MEAN CORPUSCULAR VOLUME 87.3 fL (80-94); MONOCYTES # (AUTO) 0.8 K/uL (0.8-1.0); MONOCYTES % (AUTO) 17.7 % (1.7-9.3); NEUTROPHILS # (AUTO) 2.4 K/uL (1.8-7.7); NEUTROPHILS % (AUTO) 50.9 % (42.2-75.2); PLATELET COUNT (AUTO) 163 K/uL (140-450); RED CELL DISTRIBUTION WIDTH 14.8 % (11.6-13.7); WHITE BLOOD COUNT (AUTO) 4.7 K/uL (4.8-10.8)
[2018-11-14] MEDS: levETIRAcetam 100 MG/ML ORASYR PO SCH ×2 (08:09→20:34)
[2018-11-14] MEDS: LOSARTAN 25 MG TAB PO SCH (08:10)
[2018-11-14] MEDS: ATORVASTATIN 20 MG TAB PO SCH (08:10)
[2018-11-14] MEDS: FUROSEMIDE 40 MG TAB PO SCH (08:10)
[2018-11-14] MEDS: ASPIRIN 81 MG TAB.CHEW PO SCH (08:10)
[2018-11-14] MEDS: ESCITALOPRAM 20 MG TAB PO SCH (08:11)
[2018-11-14] MEDS: PANTOPRAZOLE 40 MG TABEC PO SCH (08:11)
[2018-11-14] MEDS: CARVEDILOL 6.25 MG TAB PO SCH (08:12)
[2018-11-14] MEDS: SPIRONOLACTONE 25 MG TAB PO SCH (08:12)
--- NOTE | 2018-11-14 08:25 | NUR ---
ADMINISTERED SCHEDULED MEDS AND MORPHINE PRN FOR 7/10 PAIN. PATIENT TOLERATED WELL
[2018-11-14] MEDS ORDERED: POTASSIUM CHLORIDE 10 MEQ TABER PO SCH (09:30)
--- NOTE | 2018-11-14 10:40 | NUR ---
PATIENT USING BEDSIDE COMMODE
[2018-11-14 12:00] VITALS: BP 158/101
[2018-11-14] MEDS ORDERED: METHOCARBAMOL 500 MG TAB PO PRN (13:35)
--- NOTE | 2018-11-14 13:55 | NUR ---
PATIENT LYING IN BED, NO DISTRESS NOTED ON ROOM AIR
[2018-11-14] MEDS: LORazepam 0.5 MG TAB PO PRN ×2 (14:51→23:02)
--- NOTE | 2018-11-14 14:56 | NUR ---
APPLIED K PAD TO PATIENT'S LOWER BACK
[2018-11-14 16:00] VITALS: BP 152/89
--- NOTE | 2018-11-14 16:15 | NUR ---
PATIENT SLEEPING, ON ROOM AIR, NO DISTRESS NOTED
--- NOTE | 2018-11-14 19:11 | NUR ---
GAVE BEDSIDE REPORT TO AYLIN BELTRAN FOR CONTINUITY OF CARE. PATIENT ENDORSED IN STABLE CONDITION
--- NOTE | 2018-11-14 19:12 | NUR ---
RECEIVED BEDSIDE REPORT FROM DAYSHIFT NURSE. PATIENT ON TELE MONITOR AND STANDARD PRECAUTIONS IN PLACE. PATIENT ON ROOM AIR, BEDSIDE COMMODE IN PLACE, HERNIA REPAIR INCISION OPEN TO AIR ON RIGHT ABD. IV ON R AC 20G INFUSING D5NS AT 60, IV ASYMPTOMATIC PATENT AND INTACT. BED IN LOW POSITION, CALL LIGHT WITHIN REACH, SIDE RAILS X2 UP
[2018-11-14 20:00] VITALS: BP 144/104
--- NOTE | 2018-11-14 20:34 | NUR ---
GIVEN CARLOS DRAlex ORDERED. PT TOLERATED WELL. BED IN LOW POSITION. CALL LIGHT WITHIN REACH.
--- NOTE | 2018-11-14 21:33 | NUR ---
PT C/O OF ABD PAIN 12/17, GIVEN MORPHINE DRAlex ORDERED. PT TOLERATED WELL. WILL CONTINUE TO MONITOR.
--- NOTE | 2018-11-14 23:02 | NUR ---
PT C/O ANXIETY. GIVEN ATIVAN ORDERED. PT TOLERATED WELL. WILL CONTINUE TO MONITOR.
[2018-11-15] VITALS: BP 148/97
--- NOTE | 2018-11-15 01:39 | NUR ---
PT SLEEPING IN BED. NO S/S OF SOB OR ANY RESP DISTRESS NOTED. BED IN LOW POSITION. CALL LIGHT WITHIN REACH.
--- NOTE | 2018-11-15 03:25 | NUR ---
PT SLEEPING IN BED. NO S/S OF ACUTE DISTRESS. BREATHING EVEN AND UNLABORED. BED IN LOW POSITION. CALL LIGHT WITHIN REACH.
[2018-11-15] MEDS: MORPHINE SULFATE 2 MG/ML SYR IVP PRN ×4 (03:55→23:20)
--- NOTE | 2018-11-15 03:55 | NUR ---
PT C/O 12/17 ABD PAIN. GIVEN MORPHINE DRAlex ORDERED. PT TOLERATED WELL. WILL CONTINUE TO MONITOR.
[2018-11-15 04:00] VITALS: BP 152/95
--- NOTE | 2018-11-15 05:55 | NUR ---
PT SLEEPING IN BED COMFORTABLY. NO S/S OF ACUTE DISTRESS. BED IN LOW POSITION. CALL LIGHT WITHIN REACH.
--- NOTE | 2018-11-15 07:24 | NUR ---
ENDORSED PT TO DAY SHIFT NURSE. PT IN STABLE CONDITION.
--- NOTE | 2018-11-15 07:25 | NUR ---
REPORT RECEIVED FROM REPAIRER CONTROLLER TESTER NURSE, PT AAPX4, RESP EVEN UNLABORED, SKIN WARM DRY COLOR WNL, POC REVIEWED, PT C/O ABD PAIN, WILL MEDICATE PER ORDER, ALL SAFETY MEASURES IN PLACE, WILL CONTINUE TO MONTIOR.
[2018-11-15 07:36] LABS: BASOPHILS % (AUTO) 0.6 % (0.0-2.0); EOSINOPHILS # (AUTO) 0.1 K/uL (0-0.4); EOSINOPHILS % (AUTO) 1.8 % (0.0-4.0); HEMOGLOBIN 10.8 g/dL (12.0-16.0); LYMPHOCYTES # (AUTO) 1.6 K/uL (2.5-16.5); LYMPHOCYTES % (AUTO) 35.2 % (20.5-51.1); MEAN CORPUSCULAR HEMOGLOBIN 29 pg (27-31); MEAN CORPUSCULAR HGB CONC 33 g/dL (33-37); MEAN CORPUSCULAR VOLUME 87.6 fL (80-94); MONOCYTES # (AUTO) 0.7 K/uL (0.8-1.0); NEUTROPHILS # (AUTO) 2.1 K/uL (1.8-7.7); PLATELET COUNT (AUTO) 175 K/uL (140-450); RED BLOOD CELL COUNT(AUTO) 3.76 MIL/uL (4.20-5.40); RED CELL DISTRIBUTION WIDTH 14.4 % (11.6-13.7); WHITE BLOOD COUNT (AUTO) 4.5 K/uL (4.8-10.8)
--- NOTE | 2018-11-15 07:45 | NUR ---
DR TRISTAN AND TEAM AT BEDSIDE
[2018-11-15 08:00] VITALS: BP 144/102
[2018-11-15 08:04] LABS: CARBON DIOXIDE 25.6 mmol/L (21-32); CREATININE 0.7 mg/dL (0.6-1.3); POTASSIUM 3.6 mmol/L (3.5-5.1)
[2018-11-15] MEDS: levETIRAcetam 100 MG/ML ORASYR PO SCH ×2 (08:08→20:22)
[2018-11-15] MEDS: ASPIRIN 81 MG TAB.CHEW PO SCH (08:08)
[2018-11-15] MEDS: LOSARTAN 25 MG TAB PO SCH (08:08)
[2018-11-15] MEDS: ATORVASTATIN 20 MG TAB PO SCH (08:09)
[2018-11-15] MEDS: FUROSEMIDE 40 MG TAB PO SCH (08:09)
[2018-11-15] MEDS: MAGNESIUM OXIDE 400 MG TAB PO SCH (08:09)
[2018-11-15] MEDS: SPIRONOLACTONE 25 MG TAB PO SCH (08:09)
--- NOTE | 2018-11-15 08:09 | NUR ---
PAIN MED GIVEN FOR ABD PAIN 02/17, ABD SOFT NON TENDER NON DISTENDED, ABD INCISION WOUND WELL APPROXIMATED WITH DERMABOND. PT DARLIN AM MEDS WELL, WILL CONTINUE TO MONTIOR
[2018-11-15] MEDS: PANTOPRAZOLE 40 MG TABEC PO SCH (08:10)
[2018-11-15] MEDS: CARVEDILOL 6.25 MG TAB PO SCH (08:10)
[2018-11-15] MEDS: ESCITALOPRAM 20 MG TAB PO SCH (08:10)
[2018-11-15 08:27] LABS: MONOCYTES % (AUTO) 15.6 % (1.7-9.3); NEUTROPHILS % (AUTO) 46.8 % (42.2-75.2)
--- NOTE | 2018-11-15 08:39 | NUR ---
ASSISTED WITH BEDBATH, GOWN CHANGED, LINEN CHANGED, PT UP TO BEDSIDE COMMODE WITHOUT ASSIST.
[2018-11-15] MEDS ORDERED: MORPHINE SULFATE 2 MG/ML SYR IVP PRN (08:45)
[2018-11-15] MEDS ORDERED: HYDROcodone/APAP 10/325 MG 1 TAB TAB PO PRN (08:50)
[2018-11-15] MEDS: DEXT 5% /NACL 0.9% 1,000 ML IV SCH (11:11)
--- NOTE | 2018-11-15 11:42 | NUR ---
MEDICATED WITH MORPHINE AGAIN FOR INCREASED ABDOMINAL PAIN, PT REFUSES TO TAKE NORCO 10, PT REQUESTS LIQUID PERCOCET, DR MARRERO NOTIFIED.
--- NOTE | 2018-11-15 11:47 | NUR ---
SISTER AT [facility]. Addendum: 11/15/18 at 1148 by Eloisa Tovar RN SISTER KELLY
[2018-11-15] MEDS ORDERED: oxyCODONE/APAP 5/325 MG 1 TAB TAB PO PRN (12:15)
[2018-11-15 13:00] VITALS: BP 139/94
--- NOTE | 2018-11-15 13:45 | NUR ---
PT SITTING UP IN BED TALKING WITH SISTER, APPERS IN NO DISTRESS, DENIES ANY NEEDS AT THIS TIME.
--- NOTE | 2018-11-15 15:40 | NUR ---
PT C/O PAIN, PT REQUESTS MORPHINE BUT MORPHINE HAS BEEN DISCONTINUED, PERCOCET GIVEN, WILL MONITOR PAIN, COLACE ALSO GIVEN FOR CONSTIPATION, PT STATES LAST BM 6 DAYS AGO, DR MARRERO MADE AWARE.
[2018-11-15 16:00] VITALS: BP 138/90
[2018-11-15] MEDS ORDERED: MAGNESIUM CITRATE 300 ML BTL PO SCH (17:00)
--- NOTE | 2018-11-15 17:14 | NUR ---
PT STATES PERCOCET DID NOT HELP MUCH WITH PAIN, MORPHINE GIVEN, PT AWAKE ALERT, SPEAKING CLEARLY, AT BEDSIDE.
--- NOTE | 2018-11-15 18:53 | NUR ---
PT DARLIN DINNER WELL WITHOUT N/V, STATES PAIN IS MANAGEABLE AT THIS TIME, IVF INFUSING WELL, SITE WNL, DENIES ANY NEEDS AT THIS TIME, AT BEDSIDE.
--- NOTE | 2018-11-15 19:17 | NUR ---
REPORT GIVEN TO MANAGER OF SOFTWARE NURSE, PT IN STABLE CONDITION.
--- NOTE | 2018-11-15 19:18 | NUR ---
RECEIVED BEDSIDE REPORT FROM DAYSHIFT NURSE. PATIENT ON TELE MONITOR AND ALL SAFETY MEASURE IN PLACE. NO SOB OR ANY RESPIRATORY DISTRESS NOTED ON ROOM AIR, BEDSIDE COMMODE IN PLACE, HERNIA REPAIR INCISION OPEN TO AIR ON RIGHT ABD. IV ON R AC 20G INFUSING D5NS AT 60, IV ASYMPTOMATIC PATENT AND INTACT. BED IN LOW POSITION, CALL LIGHT WITHIN REACH.
[2018-11-15 20:00] VITALS: BP 146/94
--- NOTE | 2018-11-15 20:22 | NUR ---
GIVEN CARLOS DRAlex ORDERED. PT TOLERATED WELL. BED IN LOW POSITION. CALL LIGHT WITHIN REACH.
--- NOTE | 2018-11-15 21:25 | NUR ---
ENDORSED PT TO NIGHT NURSECLAUDIA. PT IN STABLE CONDITION AND SLEEPING.
--- NOTE | 2018-11-15 21:25 | NUR ---
RECEIVED BEDSIDE REPORT FROM HARIS VIERA. PT IS SLEEPING COMFORTABLY IN BED. RESPIRATIONS ARE EQUAL AND UNLABORED. C/C ABDOMINAL PAIN S/P HERNIA REPAIR. PT WITH ABD SURGICAL INCISION 8CM TAMY. NO DRAINAGE NOTED, IV ON RAC 20G IVF PER ORDERS. SAFETY MEASURES ARE IN PLACE. WILL CONTINUE TO MONITOR.
[2018-11-15] MEDS: LORazepam 0.5 MG TAB PO PRN (23:19)
--- NOTE | 2018-11-15 23:20 | NUR ---
MORPHINE ADMINISTERED FOR ABD PAIN 11/17. PT TOLERATED WELL. CALL LIGHT IS WITHIN REACH.
[2018-11-16] VITALS: BP 152/86
--- NOTE | 2018-11-16 00:15 | NUR ---
VITAL SIGNS ARE WITHIN NORMAL LIMITS. PT WITH SURGICAL INCISION S/P HERNIA REPAIR APPROXIMATED WITH SUTURES. INCOME TAX PREPARER NO DRAINAGE NOTED. WILL CONTINUE TO MONITOR.
--- NOTE | 2018-11-16 02:05 | NUR ---
PATIENT IS SLEEPING NO S/S OF DISTRESS. CALL LIGHT WITHIN REACH.
[2018-11-16] MEDS: DEXT 5% /NACL 0.9% 1,000 ML IV SCH (03:58)
[2018-11-16 04:00] VITALS: BP 134/83
--- NOTE | 2018-11-16 04:00 | NUR ---
VITAL SIGNS ARE WITHIN NORMAL LIMITS. PATIENT MEDICATED FOR PAIN AND NEW IVF BAG STARTED. CALL LIGHT WITHIN REACH. WILL CONTINUE TO MONITOR
[2018-11-16] MEDS ORDERED: oxyCODONE/APAP 5/325 MG 1 TAB TAB PO PRN (07:10)
--- NOTE | 2018-11-16 07:12 | NUR ---
GAVE BEDSIDE REPORT TO JAYCE RN. PT ENDORSED IN STABLE CONDITION.
--- NOTE | 2018-11-16 07:13 | NUR ---
REPORT RECEIVED FROM COLD ROLL OPERATOR NURSE, PT SLEEPING QUIETLY IN NAD, RESP EVEN UNLABORED, SKIN WARM DRY COLOR WNL, PT AROUSES EASILY, OX4, REPORTS PAIN 7/10, BUT STATES "I FEEL GOOD", PT REPORTS LOOSE STOOL X2 LAST NIGHT, POC REVIEWED, DENIES ANY IMMEDIATE NEEDS, WILL CONTINUE TO MONITOR.
--- NOTE | 2018-11-16 07:18 | NUR ---
REPORT RECEIVED FROM PLUMBER'S ASSISTANT NURSE, PT SLEEPING QUIETLY IN NAD, RESP EVEN UNLABORED, SKIN WARM DRY COLOR WNL, PT AROUSES EASILY, O X1, DENIES PAIN OR DISCOMFORT, POC REVIEWED, DENIES ANY IMMEDIATE NEEDS, WILL CONTINUE TO MONITOR. Addendum: 11/16/18 at 0755 by Eolisa Tovar RN PLEASE DISREGARD ABOVE NOTE, WRONG PT.
--- NOTE | 2018-11-16 07:49 | NUR ---
DR TRISTAN AND TEAM AT BEDSIDE
[2018-11-16 07:50] LABS: ANION GAP 9.8 (8-16); CARBON DIOXIDE 27.9 mmol/L (21-32); CREATININE 0.8 mg/dL (0.6-1.3); POTASSIUM 3.7 mmol/L (3.5-5.1)
[2018-11-16 07:53] LABS: BASOPHILS % (AUTO) 0.4 % (0.0-2.0); EOSINOPHILS # (AUTO) 0.1 K/uL (0-0.4); HEMATOCRIT 31.6 % (36-48); HEMOGLOBIN 10.4 g/dL (12.0-16.0); LYMPHOCYTES # (AUTO) 1.4 K/uL (2.5-16.5); LYMPHOCYTES % (AUTO) 34.7 % (20.5-51.1); MEAN CORPUSCULAR HEMOGLOBIN 29 pg (27-31); MEAN CORPUSCULAR HGB CONC 33 g/dL (33-37); MEAN CORPUSCULAR VOLUME 88.1 fL (80-94); MONOCYTES # (AUTO) 0.7 K/uL (0.8-1.0); MONOCYTES % (AUTO) 15.6 % (1.7-9.3); NEUTROPHILS % (AUTO) 47.3 % (42.2-75.2); PLATELET COUNT (AUTO) 194 K/uL (140-450); RED BLOOD CELL COUNT(AUTO) 3.58 MIL/uL (4.20-5.40); RED CELL DISTRIBUTION WIDTH 14.8 % (11.6-13.7); WHITE BLOOD COUNT (AUTO) 4.2 K/uL (4.8-10.8)
[2018-11-16 07:56] LABS: MAGNESIUM 1.9 mg/dL (1.8-2.4); PHOSPHORUS 3.8 mg/dL (2.5-4.9)
[2018-11-16 08:00] VITALS: BP 142/93
--- NOTE | 2018-11-16 08:00 | NUR ---
PT UP AMBULATING TO BATHROOM WITH SLOW STEADY GAIT, DARLIN WELL.
[2018-11-16] MEDS: levETIRAcetam 100 MG/ML ORASYR PO SCH (08:24)
[2018-11-16] MEDS: ASPIRIN 81 MG TAB.CHEW PO SCH (08:25)
[2018-11-16] MEDS: MAGNESIUM OXIDE 400 MG TAB PO SCH (08:25)
[2018-11-16] MEDS: FUROSEMIDE 40 MG TAB PO SCH (08:25)
[2018-11-16] MEDS: PANTOPRAZOLE 40 MG TABEC PO SCH (08:25)
--- NOTE | 2018-11-16 08:25 | NUR ---
AM MEDS AND PERCOCET GIVEN FOR PAIN.
[2018-11-16] MEDS: ATORVASTATIN 20 MG TAB PO SCH (08:26)
[2018-11-16] MEDS: ESCITALOPRAM 20 MG TAB PO SCH (08:26)
[2018-11-16] MEDS: CARVEDILOL 6.25 MG TAB PO SCH (08:26)
[2018-11-16] MEDS: LOSARTAN 25 MG TAB PO SCH (08:27)
[2018-11-16] MEDS: SPIRONOLACTONE 25 MG TAB PO SCH (08:28)
[2018-11-16] MEDS ORDERED: ACET-5636 PO (09:38)
[2018-11-16] MEDS ORDERED: CEPH250C16 PO (09:38)
[2018-11-16] MEDS ORDERED: LACT1.4C PO (09:38)
--- NOTE | 2018-11-16 10:40 | NUR ---
PT UP AMBULATING AROUND THE ROOM WITH STEADY GAIT, DENIES ANY PAIN.
--- NOTE | 2018-11-16 11:10 | NUR ---
PT TOOK SHOWER, CHANGED CLOTHES, NO C/O PAIN, IV DC'D, CATH TIP INTACT BLEEDING CONTROLLED.
--- NOTE | 2018-11-16 11:25 | NUR ---
DC INSTRUCTION, RX FOR PERCOCET, INFORMATION FOR ELECTRONIC RX GIVEN AND EXPLAINED TO PT, PT VERBALIZED FULL UNDERSTANDING, PT ESCORTED OUT TO LOBBY IN WHEELCHAIR, DC HOME WITH .
== END 2018-11-16 11:25 | disposition home or self-care (01) | DRG 920 ==
LOC: MED 05:05 → MTU 08:31
PROVIDERS: ADMIT General Practice; ATTEND General Practice
DX: L76.32 Postprocedural hematoma of skin and subcutaneous tissue following other procedure (principal); I50.42 Chronic combined systolic (congestive) and diastolic (congestive) heart failure; J98.11 Atelectasis; R18.8 Other ascites; Y83.8 Other surgical procedures as the cause of abnormal reaction of the patient, or of later complication, without mention of misadventure at the time of the procedure; I16.0 Hypertensive urgency; E87.6 Hypokalemia; E83.42 Hypomagnesemia; K21.9 Gastro-esophageal reflux disease without esophagitis; I11.0 Hypertensive heart disease with heart failure; F17.210 Nicotine dependence, cigarettes, uncomplicated; D64.9 Anemia, unspecified; F32.9 Major depressive disorder, single episode, unspecified; F41.9 Anxiety disorder, unspecified; E78.2 Mixed hyperlipidemia; M54.9 Dorsalgia, unspecified; G47.9 Sleep disorder, unspecified; K76.0 Fatty (change of) liver, not elsewhere classified; Z88.0 Allergy status to penicillin; Z88.8 Allergy status to other drugs, medicaments and biological substances; Z79.82 Long term (current) use of aspirin; Z79.899 Other long term (current) drug therapy; Z86.73 Personal history of transient ischemic attack (TIA), and cerebral infarction without residual deficits
CPT/HCPCS: 36415; 71045; 76705; 80048; 80053; 80305; 81001; 82150; 83036; 83690; 83735; 83880; 84100; 84436; 84439; 84443; 84479; 84484; 85025; 85610; 85730; 87081; 93005; 96361; 96374; 96375; 96376; 99285; J0696; J1170; J2270; J2405; J7042; J7060; Q0092; Q9967

== ENCOUNTER 2018-11-30 15:48 | Emergency (ER) | payer OTHER ==
[~2018-11-30] VITALS: Ht 157.5 cm; Wt 70.4 kg
[~2018-11-30 15:48] MED LIST changes: +ACET-5636 PO; +CEPH250C16 PO; -HYDR-5122 PO; +LACT1.4C PO; -OMEP20TC12 PO; -TRAM50TA1 PO
[2018-11-30 15:52] VITALS: BP 127/90
--- NOTE | 2018-11-30 15:52 | NUR ---
TO BED # 02 AMBULATORY
[2018-11-30] MEDS ORDERED: KETOROLAC 60 MG/2 ML VIAL IM ONE (16:20)
--- NOTE | 2018-11-30 16:24 | NUR ---
PT C/O SHARP FRONTAL HEADACHE RADIATES TO BOTH EYES, NAUSEA, VOMITING ONE TIME TODAY, SHARP LOWER BACK PAIN BILATERALLY RADIATES TO RIGHT ARM FOR 5 DAYS. PT ALSO C/O DIFFUSED ABDOMINAL PAIN AFTER THE HERNIA REPAIR SURGERY ON November. PT ALSO HAS COUGH WITH WHITE SPUTUM AND SOB FOR 5 DAYS. DENIES DIARRHEA; SKIN IS WARM/DRY; AAOX4 WITH EVEN AND STEADY GAIT; LUNGS CLEAR BL; PT DENIES ANY FEVER AT THIS TIME; PATIENT STATES PAIN OF 9/10 AT THIS TIME; VSS; PATIENT POSITIONED FOR COMFORT; HOB ELEVATED; BEDRAILS UP X2; BED DOWN. ER MD MADE AWARE OF PT STATUS.
[2018-11-30] MEDS ORDERED: NACL 0.9% 1,000 ML IV SCH (17:14)
[2018-11-30] MEDS ORDERED: MORPHINE SULFATE 4 MG/ML SYR IVP ONE ×2 (17:15→19:20)
[2018-11-30] MEDS ORDERED: ONDANSETRON 4 MG/2 ML VIAL IVP ONE (17:15)
[2018-11-30 17:34] LABS: BASOPHILS # (AUTO) 0.1 K/uL (0.00-0.22); BASOPHILS % (AUTO) 1.5 % (0.0-2.0); EOSINOPHILS # (AUTO) 0.1 K/uL (0-0.4); EOSINOPHILS % (AUTO) 2.4 % (0.0-4.0); HEMATOCRIT 35.7 % (36-48); HEMOGLOBIN 11.6 g/dL (12.0-16.0); LYMPHOCYTES # (AUTO) 1.9 K/uL (2.5-16.5); LYMPHOCYTES % (AUTO) 39.4 % (20.5-51.1); MEAN CORPUSCULAR HEMOGLOBIN 29 pg (27-31); MEAN CORPUSCULAR HGB CONC 33 g/dL (33-37); MEAN CORPUSCULAR VOLUME 88.2 fL (80-94); MONOCYTES # (AUTO) 0.5 K/uL (0.8-1.0); MONOCYTES % (AUTO) 11.1 % (1.7-9.3); NEUTROPHILS # (AUTO) 2.2 K/uL (1.8-7.7); NEUTROPHILS % (AUTO) 45.6 % (42.2-75.2); PLATELET COUNT (AUTO) 239 K/uL (140-450); RED BLOOD CELL COUNT(AUTO) 4.05 MIL/uL (4.20-5.40); RED CELL DISTRIBUTION WIDTH 14.9 % (11.6-13.7); WHITE BLOOD COUNT (AUTO) 4.7 K/uL (4.8-10.8)
[2018-11-30 17:35] LABS: APPEARANCE,URINE CLEAR (CLEAR); BILIRUBIN,URINE NEGATIVE (NEGATIVE); BLOOD, URINE 2+ (NEGATIVE); COLOR,URINE YELLOW (YELLOW); LEUKOCYTE ESTERASE ,URINE NEGATIVE (NEGATIVE); NITRITE, URINE NEGATIVE (NEGATIVE); UGLUCOSE NEGATIVE (NEGATIVE)
[2018-11-30 17:37] LABS: RBC,URINE 11-20 (MOD) /HPF (0-5); WBC,URINE 0-5 /HPF (0-5)
[2018-11-30 17:43] LABS: ANION GAP 12.6 (8-16); CARBON DIOXIDE 30.2 mmol/L (21-32); CREATININE 0.9 mg/dL (0.6-1.3); POTASSIUM 3.8 mmol/L (3.5-5.1)
[2018-11-30 17:49] LABS: ALBUMIN 3.6 g/dL (3.4-5.0); TOTAL BILIRUBIN 0.2 mg/dL (0.0-1.0)
[2018-11-30] MEDS ORDERED: LORazepam 2 MG/ML VIAL IVP ONE (18:40)
[2018-11-30 18:58] VITALS: BP 161/92
--- NOTE | 2018-11-30 19:10 | NUR ---
RECEIVED REPORT FROM AYLIN ARREAGA. ASSUMED CARE AT THIS TIME.
--- NOTE | 2018-11-30 19:10 | NUR ---
REPORT GIVEN TO AYLIN CONTRERAS.
--- NOTE | 2018-11-30 20:00 | NUR ---
Patient discharged with v/s stable. Written and verbal after care instructions given and explained. Patient alert, oriented and verbalized understanding of instructions. Ambulatory with steady gait. All questions addressed prior to discharge. ID band removed. Patient advised to follow up with PMD. Rx of Zofran, [place], and Motrin given. Patient educated on indication of medication including possible reaction and side effects. Opportunity to ask questions provided and answered.
== END 2018-11-30 20:00 | disposition home or self-care (01) ==
LOC: MED 15:48
DX: R10.31 Right lower quadrant pain (principal); I11.0 Hypertensive heart disease with heart failure; I50.9 Heart failure, unspecified; K21.9 Gastro-esophageal reflux disease without esophagitis; Z98.890 Other specified postprocedural states; Z79.82 Long term (current) use of aspirin; Z79.899 Other long term (current) drug therapy; Z88.0 Allergy status to penicillin; Z88.8 Allergy status to other drugs, medicaments and biological substances
CPT/HCPCS: 36415; 74176; 80053; 81001; 83690; 85025; 96372; 96374; 96375; 96376; 99284; J1885; J2060; J2270; J2405; J7030

== ENCOUNTER 2018-12-07 16:38 | Emergency (ER) | payer OTHER ==
[~2018-12-07] VITALS: Ht 157.5 cm; Wt 70.9 kg
[~2018-12-07 16:38] MED LIST changes: -ACET-5636 PO; -CEPH250C16 PO; -LACT1.4C PO
[2018-12-07 16:46] VITALS: BP 148/90
--- NOTE | 2018-12-07 16:48 | NUR ---
PT RETURNED TO LOBBY IN STABLE CONDITION
--- NOTE | 2018-12-07 17:44 | NUR ---
PT AMBULATED TO BED 11
--- NOTE | 2018-12-07 17:56 | NUR ---
58 Y FEMALE BIB C/O HEADACHE X 3 DAYS, PAIN 10/10. STATES SHE FEELS A SHARP AND NEEDLE-LIKE STABS IN HER HEAD. ALSO C/O DIZZINESS AND LIGHTHEADEDNESS. NEURO INTACT. AA0X4. GCS 15. PUPILS OMAR. EQUAL ARM SEARCH ENGINE OPTIMIZATION CONSULTANT. FACIAL SYMMETRY. BED IS DOWN, LOCKED, BED RAIL X 1, ERMD TO SEE PT. PMH- HTN, CHF
[2018-12-07 18:11] VITALS: BP 144/96
--- NOTE | 2018-12-07 18:12 | NUR ---
VSS AT THIS TIME. PT AA0X4. C.O 03/19 PAIN. ERMD TO SEE PT.
--- NOTE | 2018-12-07 18:31 | NUR ---
DR MORALES AT BEDSIDE
--- NOTE | 2018-12-07 18:41 | NUR ---
PT AMB TO RESTROOM WITH STEADY GAIT
--- NOTE | 2018-12-07 18:44 | NUR ---
PT GOING TO CT VIA WHEELCHAIR
--- NOTE | 2018-12-07 18:44 | NUR ---
PT WENT TO CT VIA W/C
[2018-12-07 19:45] LABS: BARBITURATE, URINE NEG. ng/ml (NEG <=200); BENZODIAZEPINE, URINE NEG. ng/mL (NEG <=200); CANNABINOID, URINE POS. ng/mL (NEG <=50); COCAINE, URINE NEG. ng/mL (NEG <=300); OPIATE, URINE NEG. ng/mL (NEG <=2000); PHENCYCLIDINE SCREEN,URINE NEG. ng/mL (NEG <=25)
[2018-12-07 19:46] LABS: APPEARANCE,URINE CLEAR (CLEAR); BILIRUBIN,URINE NEGATIVE (NEGATIVE); BLOOD, URINE 2+ (NEGATIVE); COLOR,URINE YELLOW (YELLOW); LEUKOCYTE ESTERASE ,URINE NEGATIVE (NEGATIVE); NITRITE, URINE NEGATIVE (NEGATIVE); PH,URINE 6.5 (5.0-9.0); UGLUCOSE NEGATIVE (NEGATIVE)
--- NOTE | 2018-12-07 19:52 | NUR ---
DR MCGOWAN NOTIFIED OF PT PAIN. VERBAL ORDER TO GIVE TORADOL IM 60 MG
[2018-12-07] MEDS ORDERED: KETOROLAC 60 MG/2 ML VIAL IM ONE (19:55)
[2018-12-07 20:04] LABS: WBC,URINE 0-5 /HPF (0-5)
--- NOTE | 2018-12-07 20:23 | NUR ---
DR MCGOWAN AT BEDSIDE
--- NOTE | 2018-12-07 20:38 | NUR ---
Written and verbal after care instructions given and explained BY DR MCGOWAN. Patient alert AND ORIENTED. PATIENT Ambulatory with steady gait. All questions addressed prior to discharge. ID band removed. Rx of LEVAQUIN, NAPROSYN given.
== END 2018-12-07 20:38 | disposition home or self-care (01) ==
LOC: MED 16:38
DX: R51 Headache (principal); I11.0 Hypertensive heart disease with heart failure; I50.9 Heart failure, unspecified; K21.9 Gastro-esophageal reflux disease without esophagitis; F17.210 Nicotine dependence, cigarettes, uncomplicated; Z98.890 Other specified postprocedural states; Z79.82 Long term (current) use of aspirin; Z79.899 Other long term (current) drug therapy; Z88.0 Allergy status to penicillin; Z88.8 Allergy status to other drugs, medicaments and biological substances
CPT/HCPCS: 70450; 80305; 81001; 96372; 99284; J1885

== ENCOUNTER 2020-02-10 07:56 | Inpatient (IN) | payer OTHER, SELFPAY ==
[~2020-02-10] VITALS: Ht 167.6 cm; Wt 61.2 kg
[2020-02-10 08:01] VITALS: BP 154/101
--- NOTE | 2020-02-10 08:12 | NUR ---
59 Y/O FEMALE C/O CHEST PAIN/SOB THAT STARTED LAST NIGHT. PT STATES SHE HAS BEEN UNABLE TO SLEEP D/T CHEST PAIN AND SOB. PT IS VERY ANXIOUS. STATES SHE USED METH TWO DAYS AGO. VSS. RESP EVEN AND LABORED, RR:32. DENIES ANY FEVER/CHILLS/COUGH. PMH: CHF, HTN HX OF [place] LAST YEAR
[2020-02-10] MEDS ORDERED: NACL 0.9% 1,000 ML IV ONE (08:25)
[2020-02-10] MEDS ORDERED: ASPIRIN 81 MG TAB.CHEW PO ONE (08:25)
[2020-02-10 08:44] LABS: BASOPHILS # (AUTO) 0.1 K/uL (0.00-0.22); BASOPHILS % (AUTO) 0.9 % (0.0-2.0); EOSINOPHILS # (AUTO) 0.1 K/uL (0-0.4); EOSINOPHILS % (AUTO) 1.7 % (0.0-4.0); HEMATOCRIT 38.7 % (36-48); HEMOGLOBIN 12.6 g/dL (12.0-16.0); LYMPHOCYTES # (AUTO) 1.9 K/uL (2.5-16.5); LYMPHOCYTES % (AUTO) 34.7 % (20.5-51.1); MEAN CORPUSCULAR HEMOGLOBIN 29 pg (27-31); MEAN CORPUSCULAR HGB CONC 33 g/dL (33-37); MEAN CORPUSCULAR VOLUME 90.4 fL (80-94); MONOCYTES # (AUTO) 0.8 K/uL (0.8-1.0); MONOCYTES % (AUTO) 13.6 % (1.7-9.3); NEUTROPHILS # (AUTO) 2.8 K/uL (1.8-7.7); NEUTROPHILS % (AUTO) 49.1 % (42.2-75.2); PLATELET COUNT (AUTO) 200 K/uL (140-450); RED BLOOD CELL COUNT(AUTO) 4.28 MIL/uL (4.20-5.40); RED CELL DISTRIBUTION WIDTH 13.7 % (11.6-13.7); WHITE BLOOD COUNT (AUTO) 5.6 K/uL (4.8-10.8)
[2020-02-10] MEDS ORDERED: LORazepam 2 MG/ML VIAL IVP ONE (08:45)
[2020-02-10 09:01] LABS: ALBUMIN 3.2 g/dL (3.4-5.0); ANION GAP 14.1 (8-16); ASPARTATE AMINOTRANSFERASE 25 U/L (15-37); CARBON DIOXIDE 25.3 mmol/L (21-32); CHLORIDE 109 mmol/L (98-107); CREATININE 1.2 mg/dL (0.6-1.3); GFR ARICAN-AMERICAN 59 mL/min (>90); GLUCOSE 135 mg/dL (74-106); POTASSIUM 3.4 mmol/L (3.5-5.1); SODIUM SERUM 145 mmol/L (136-145); TOTAL BILIRUBIN 0.2 mg/dL (0.0-1.0); UREA NITROGEN, BLOOD 20 mg/dL (7-18)
[2020-02-10 09:06] LABS: PROTHROMBIN TIME 9.8 secs (10.8-13.4)
[2020-02-10 09:20] LABS: SALICYLATE < 2.8 mg/dL (2.8-20.0)
--- NOTE | 2020-02-10 10:00 | NUR ---
PT IS RESTING IN BED, RESPONSIVE TO VERBAL STIMULI, STATES WORK OF BREATHING HAS DECREASED. PT STATES SHE IS FEELING BETTER AT THIS MOMENT
[2020-02-10 10:19] LABS: ACETAMINOPHEN < 0.5 ug/ml (10-30)
--- NOTE | 2020-02-10 10:27 | NUR ---
Troponin 0.876--critical value received from lab. Dr Palomares made aware
[2020-02-10] MEDS ORDERED: ENOXAPARIN 60 MG/0.6 ML SYR SUBQ ONE (10:30)
[2020-02-10] MEDS ORDERED: METOPROLOL 5 MG/5 ML VIAL IVP ONE (10:30)
[2020-02-10] MEDS ORDERED: NITROGLYCERIN 2% 1 GM PKT TP ONE (10:30)
[2020-02-10] MEDS ORDERED: POTASSIUM CHLORIDE 10 MEQ TABER PO PRN (10:45)
[2020-02-10] MEDS ORDERED: guaiFENesin DM 200/20 MG-10 ML 10 ML UDC PO PRN (10:45)
[2020-02-10] MEDS ORDERED: ZOLPIDEM 5 MG TAB PO PRN (10:45)
[2020-02-10] MEDS ORDERED: ONDANSETRON 4 MG/2 ML VIAL IM/IVP PRN (10:45)
[2020-02-10] MEDS ORDERED: DOCUSATE SODIUM 100 MG GELCAP PO PRN (10:45)
[2020-02-10] MEDS ORDERED: traZODone 50 MG TAB PO PRN (10:50)
--- NOTE | 2020-02-10 10:50 | NUR ---
PATIENT SWABBED FOR COVID DIAMOND AT BEDSIDE
--- NOTE | 2020-02-10 11:03 | NUR ---
Troponin re-draw 0.879--critical value received from lab. Dr Palomares made aware
[2020-02-10 11:32] LABS: BARBITURATE, URINE NEGATIVE ng/ml (NEG <=200); BENZODIAZEPINE, URINE NEGATIVE ng/mL (NEG <=200); CANNABINOID, URINE POSITIVE ng/mL (NEG <=50); COCAINE, URINE POSITIVE ng/mL (NEG <=300); OPIATE, URINE NEGATIVE ng/mL (NEG <=2000); PHENCYCLIDINE SCREEN,URINE NEGATIVE ng/mL (NEG <=25)
[2020-02-10 11:35] VITALS: BP 134/77
--- NOTE | 2020-02-10 11:35 | NUR ---
RECEIVED PT FROM ER NURSE, VIA GURTHA PT IS AWAKE WITH AN IV LINE NOTED ON THE LEFT AC G. 20 ON SALINE LOCK, PT IS ON ROOM AIR, V/S TAKEN AND IS STABLE, PT DENIES PAIN AND NO SIGN OF DISTRESS NOTED, WILL CONTINUE TO BE MONITORED.
[2020-02-10 11:40] LABS: PROTHROMBIN TIME 9.8 secs (10.8-13.4)
--- NOTE | 2020-02-10 11:51 | NUR ---
Patient will be admitted to care of [facility]. Admited to TELE. Will go to room 117A. Belongings list completed. Report to MARILYNN VIERA.
[2020-02-10 11:52] LABS: CHOL/HDL RATIO 1.7 (1-4.5); FREE T4 (FREE THYROXINE) 0.99 ng/dL (0.76-1.46); MAGNESIUM 1.7 mg/dL (1.8-2.4); PHOSPHORUS 3.2 mg/dL (2.5-4.9)
[2020-02-10 11:57] LABS: APPEARANCE,URINE HAZY (CLEAR); COLOR,URINE YELLOW (YELLOW)
[2020-02-10 11:58] LABS: BILIRUBIN,URINE NEGATIVE (NEGATIVE); BLOOD, URINE 2+ (NEGATIVE); LEUKOCYTE ESTERASE ,URINE TRACE (NEGATIVE); NITRITE, URINE NEGATIVE (NEGATIVE); PH,URINE 5.5 (5.0-9.0); RBC,URINE 11-20 (MOD) /HPF (0-5); UGLUCOSE NEGATIVE (NEGATIVE); WBC,URINE 0-5 /HPF (0-5)
[2020-02-10] MEDS: FUROSEMIDE 20 MG/2 ML VIAL IVP SCH ×2 (13:27→20:35)
--- NOTE | 2020-02-10 13:27 | NUR ---
PT WAS GIVEN IV LASIX NOW, BP IS 134/77, PULSE IS 77 WILL MONITOR PT.
--- NOTE | 2020-02-10 13:40 | NUR ---
MRSA SWAB DONE TO PT NOW.
[2020-02-10] MEDS: ACETAMINOPHEN 325 MG TAB PO PRN ×2 (15:23→22:26)
--- NOTE | 2020-02-10 15:23 | NUR ---
PT ASKED FOR TYLENOL FOR HER HEADACHE. WILL MONITOR PT.
[2020-02-10] MEDS: HYDROcodone/APAP 7.5/325 MG 1 TAB PO PRN ×2 (15:35→19:53)
[2020-02-10 16:00] VITALS: BP 143/97
--- NOTE | 2020-02-10 19:10 | NUR ---
ENDORSED PT TO PETROLEUM REFINING EQUIPMENT OPERATOR NURSEJENNIFER FOR CONTINUITY OF CARE.
--- NOTE | 2020-02-10 19:15 | NUR ---
RECEIVED PT FROM DAY RN. AOX4 ON 2L N/C. RESPIRATIONS EVEN AND UNLABORED. DENIES PAIN. IV SITE LAC, SALINE LOCK. SKIN INTACT. SAFETY MEASURES IN PLACE. CALL LIGHT WITHIN REACH. WILL CONTINUE TO MONITOR
--- NOTE | 2020-02-10 19:45 | NUR ---
PT ASKED FOR PAIN MEDICATION FOR HEADACHE AND CHEST PAIN. WILL MEDICATE WITH PRN PAIN MEDICATION. NO DISTRESS NOTED. WILL CONTINUE TO MONITOR.
[2020-02-10 20:00] VITALS: BP 137/85
[2020-02-10] MEDS: levETIRAcetam 500 MG TAB PO SCH (20:35)
--- NOTE | 2020-02-10 20:35 | NUR ---
SCHEDULED MEDICATIONS GIVEN AND TOLERATED WELL. NO DISTRESS NOTED. WILL CONTINUE TO MONITOR
[2020-02-10] MEDS: ATORVASTATIN 20 MG TAB PO SCH (20:37)
--- NOTE | 2020-02-10 22:26 | NUR ---
PT REQUEST TYLENOL FOR HEADACHE. NO DISTRESS NOTED. WILL CONTINUE TO MONITOR.
[2020-02-11] VITALS: BP 124/82
--- NOTE | 2020-02-11 00:30 | NUR ---
PT ASLEEP IN BED. RESPIRATIONS EVEN AND UNLABORED. NO DISTRESS NOTED. WILL CONTINUE TO MONITOR
[2020-02-11] MEDS: LORazepam 2 MG/ML VIAL IVP PRN (00:49)
--- NOTE | 2020-02-11 03:25 | NUR ---
PT ASLEEP IN BED. NO DISTRESS NOTED. WILL CONTINUE TO MONITOR
[2020-02-11 04:00] VITALS: BP 119/86
--- NOTE | 2020-02-11 05:15 | NUR ---
CHECKED ON PT. PT AWAKE IN BED. PT STATES SHE FELL ON THE BATHROOM, PT STATED, "I WALKED TO THE BATHROOM, GRABBED ON THE HANDLE BAR WITH MY RIGHT HAND AND MISSED THE TOILET AND GOT BACK UP AND ON TO THE TOILET. MY BUTT DIDNT HIT THE FLOOR. MY LEFT ARM HIT THE FLOOR WHEN I WAS GETTING THE TOILET PAPER. I'M OKAY. I'M NOT IN PAIN" UNWITNESSED FALL. ASSESSED PT'S ARM. NO BRUISES, NO SCRATCHES, SKIN INTACT, PT DENIES PAIN. PT AOX4. PT IN STABLE CONDITION. NO DISTRESS NOTED. MADE AWARE. WILL FOLLOW UP WITH XRAY. WILL CONTINUE TO MONITOR PT.
[2020-02-11 06:45] LABS: ANION GAP 13.7 (8-16); CREATININE 0.9 mg/dL (0.6-1.3); POTASSIUM 3.7 mmol/L (3.5-5.1)
[2020-02-11 06:50] LABS: BASOPHILS % (AUTO) 0.7 % (0.0-2.0); EOSINOPHILS # (AUTO) 0.1 K/uL (0-0.4); EOSINOPHILS % (AUTO) 2.1 % (0.0-4.0); LYMPHOCYTES # (AUTO) 2.3 K/uL (2.5-16.5); LYMPHOCYTES % (AUTO) 52.5 % (20.5-51.1); MEAN CORPUSCULAR HEMOGLOBIN 29 pg (27-31); MEAN CORPUSCULAR HGB CONC 33 g/dL (33-37); MEAN CORPUSCULAR VOLUME 90.4 fL (80-94); MONOCYTES # (AUTO) 0.6 K/uL (0.8-1.0); MONOCYTES % (AUTO) 12.3 % (1.7-9.3); NEUTROPHILS # (AUTO) 1.4 K/uL (1.8-7.7); NEUTROPHILS % (AUTO) 32.4 % (42.2-75.2); PLATELET COUNT (AUTO) 197 K/uL (140-450); RED BLOOD CELL COUNT(AUTO) 4.09 MIL/uL (4.20-5.40); RED CELL DISTRIBUTION WIDTH 14.1 % (11.6-13.7); WHITE BLOOD COUNT (AUTO) 4.5 K/uL (4.8-10.8)
--- NOTE | 2020-02-11 07:20 | NUR ---
ENDORSED PT IN STABLE TO DAY RN FOR CONTINUITY OF CARE. Addendum: 02/11/20 at 0820 by Samreen Bender RN ENDORSED PT TO DAY RN FOR CONTINUITY OF CARE. PT IN STABLE CONDITION
--- NOTE | 2020-02-11 07:22 | NUR ---
RECEIVED ENDORSEMENT FROM EXTENSION SERVICE ADVISOR NURSE, LYING ON BED, AWAKE , ALERT, ORIENTEDX4, BREATHING SPONTANEOUSLY WITH O2 AT 2L/MIN VIA NC, NO CHEST PAIN CLAIMED, NOT IN DISTRESS NOTED. WITH IV CANNULA G20 AT LEFT AC ON SALINE LOCK NOTED. SAFETY MEASURES IN PLACE AND CONTINUE MONITOR.
[2020-02-11 08:00] VITALS: BP 137/87
[2020-02-11] MEDS ORDERED: FUROSEMIDE 40 MG TAB PO SCH (09:00)
--- NOTE | 2020-02-11 09:11 | NUR ---
DC PLANNIN YRS OLD FEMALE PATIENT WAS ADMITTED FROM HOME WITH A DX OF ELEVATED TROPONIN. 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 PATIENT WAS DC JANUARY 28 FROM [facility]. TROP WAS 0.876,0.879 AND 0.778 CXR SHOWED CARDIOMEGALY WITHOUT ACUTE DISEASE. RAPID COVID TEST NEGATIVE. XRAY OF LEFT FOREARM NO ACUTE DISPLACED FRACTURE OF THE LEFT RADIUS OR ULNA. STARTED ACS PROTOCOL, ADMINISTERED LASIX IV AND CONTINUED HOME MEDICATIONS. CONSULTED WITH SEGREGATOR AND PSYCHIATRY. DR DEWITT (PSYCH) SEEN PATIENT NOT RECOMMENDING 5150 ,ORDERED MEDS LEXAPRO 50 MG PO FOR HER ANXIETY AND DEPRESSION. QUILL FIXER TO EVALUATE PATIENT FOR OUT PATIENT MENTAL HEALTH RESOURCES. DC PLAN AWAITING FOR SEGREGATOR CM TO FOLLOW Addendum: 02/12/20 at 1104 by Jerilyn Jain DC PLANNING: SEEN BY PSYCHIATRIST AND SEGREGATOR, DR PHILIPPE RECOMMENDED OUTPATIENT CARDIOLOGY FOLLOW UP WITH MEDICATION COMPLIANCE AND SUBSTANCE AVOIDANCE. DC PLAN TO GO HOME AND F/U WITH SEGREGATOR WHEN STABLE CM TO FOLLOW Addendum: 02/12/20 at 1530 by Jerilyn Jain DC PLANNING: PT REQUESTED TO TALK TO SS/CM REGARDING THE MEDICATION THAT SHE NEEDED HELP AND CAN NOT AFFORD TO PAY FOR HER MEDS. CALLED [employer] SPOKE WITH TH ADJUNCT POLITICAL SCIENCE INSTRUCTOR STATED PATIENT IS WITH [employer] [phone] STATED SHE CAN CALL THE MEDS BY MAIL AT [phone]. I CALLED AND STATE SHE CAN BUY GENERIC IT WILL BE 0 DOLLAR AND IF SHE WANTED BRAND NAME 25%. CALLED PT'S MER MUNROE [phone] PROVIDE HIM THE MEDS BY MAIL PHONE NUMBER. NOTIFIED AND PROVIDE DR AGUERO WITH THE NUMBER. CM TO FOLLOW Addendum: 02/13/20 at 1700 by Johanny Alberts SEEN BY PSYCHE - DOES NOT MEET LPS HOLD CRITERIA.
--- NOTE | 2020-02-11 09:21 | NUR ---
PATIENT HAS BEEN SCREENED AND CATEGORIZED MODERATE NUTRITION RISK. PATIENT WILL BE SEEN WITHIN 3-5 DAYS OF ADMISSION. 02/12/20 02/14/[address]
--- NOTE | 2020-02-11 10:05 | NUR ---
FULLY AWAKE AND ALERT, DUE MEDICATION GIVEN. DR. AGUERO MADE ROUNDS AND INFORMED ABOUT THE LATEST RESULT OF TROPONIN. SAFETY MEASURES IN PLACE.
[2020-02-11] MEDS: ASPIRIN 81 MG TAB.CHEW PO SCH (10:09)
[2020-02-11] MEDS: SPIRONOLACTONE 25 MG TAB PO SCH (10:09)
[2020-02-11] MEDS: LOSARTAN 25 MG TAB PO SCH (10:10)
[2020-02-11] MEDS: carvediloL 6.25 MG TAB PO SCH (10:10)
[2020-02-11] MEDS: levETIRAcetam 500 MG TAB PO SCH ×2 (10:11→21:13)
[2020-02-11] MEDS: PANTOPRAZOLE 40 MG TABEC PO SCH (10:12)
[2020-02-11] MEDS: ESCITALOPRAM 20 MG TAB PO SCH (10:12)
[2020-02-11] MEDS: FUROSEMIDE 20 MG/2 ML VIAL IVP SCH ×2 (10:13→21:12)
--- NOTE | 2020-02-11 10:19 | NUR ---
RADIO INSTALLER NOTE: Patient's Orientation Unable To Assess Information Provided By MER MUNROE - Shake Cutter, Realtionship and Phone Number MER MUNROE [phone] [facility] Power of Labor Training Manager No Does Patient Have a POLST No Identifying Problems No Social Work Triggers Is A Social Work Consult Needed No Mandate Report Filed No Explanation Of Identifying Problems PATIENT IS A 59-YEAR-OLD FEMALE ADMITTED FOR ELEVATED TROPONIN. PATIENT HAS PMHX OF CHF, TIA, AND SEIZURE DISORDER. Admitted From Home Pre-Admission Level Of Functioning Status Independent/Ambulatory Prior Resources/Services Used In Last 12 Months No Prior Resources Used Prior DME No Prior DME Used Living Situation Lives With Family House Patient Had Caregiver No Home Support No Caregiver Issues Financial Issues No Known Financial Issue Referral To The Financial Counselor Needed No Factors/Needs No D/C Needs Identified Pt/Rep Participated In Discharge Plan Yes Patient/Family Agress With Discharge Plan Yes Discharge Plan Comments TENTATIVE DISCHARGE PLAN IS FOR PATIENT TO RETURN HOME. DC Plan Status Initiated Addendum: 02/12/20 at 1138 by Elpidio Ruiz PER PREVIOUS DOCUMENTATION, PATIENT WAS GIVEN SUBSTANCE ABUSE RESOURCES IN CHART TO BE GIVEN AT DISCHARGE.
[2020-02-11 12:00] VITALS: BP 128/79
--- NOTE | 2020-02-11 12:20 | NUR ---
VITAL SIGNS TAKEN AND RECORDED, STABLE.
[2020-02-11] MEDS: HYDROcodone/APAP 7.5/325 MG 1 TAB PO PRN ×2 (13:07→21:14)
--- NOTE | 2020-02-11 13:09 | NUR ---
COMPLAINED OF BACK PAIN 12/17, NORCO 1 TAB ORDERED PRN GIVEN. KEPT COMFORTABLE TO BED
--- NOTE | 2020-02-11 15:42 | NUR ---
APPARENTLY ASLEEP, NO COMPLAINTS MADE. SAFETY MEASURES IN PLACE.
[2020-02-11 16:00] VITALS: BP 126/78
--- NOTE | 2020-02-11 17:51 | NUR ---
FULLY AWAKE AND ALERT, NOT IN DISTRESS NOTED, NO COMPLAINED OF PAIN.
--- NOTE | 2020-02-11 19:14 | NUR ---
ENDORSED TO MOBILE DEVELOPER IN STABLE CONDITION FOR CONTINUITY OF CARE
--- NOTE | 2020-02-11 19:15 | NUR ---
RECEIVED BEDSIDE ENDORSEMENT FROM AM SHIFT RN. NO SOB. ON 2L NC WITH O2 SAT OF 99%. DENIES PAIN, IV SITE INTACT LAC 20G. FALL PROTOCOL OBSERVED. SEIZURE SAFETY PROTECTION IN PLACE. SAFETY MEASURES IN PLACE. PLAN OF CARE DISCUSSED. CALL LIGHT WITHIN REACH.
[2020-02-11 20:00] VITALS: BP 125/78
--- NOTE | 2020-02-11 21:12 | NUR ---
DUE MEDS GIVEN ORDERED, MED ED PROVIDED, TOLERATED WELL. PATIENT IS TALKING ON THE PHONE.
[2020-02-11] MEDS: ATORVASTATIN 20 MG TAB PO SCH (21:13)
--- NOTE | 2020-02-11 23:45 | NUR ---
PATIENT ASKED FOR SNACK, GAVE SANDWICH AND PUDDING.
[2020-02-12] VITALS: BP 101/63
--- NOTE | 2020-02-12 03:06 | NUR ---
MADE ROUNDS, PATIENT IS ASLEEP, DENIES PAIN, RESPIRATION EVEN AND UNLABORED, NO DISTRESS NOTED. CALL LIGHT WITHIN REACH.
[2020-02-12 04:00] VITALS: BP 94/60
[2020-02-12 04:55] LABS: BASOPHILS % (AUTO) 0.5 % (0.0-2.0); EOSINOPHILS # (AUTO) 0.1 K/uL (0-0.4); EOSINOPHILS % (AUTO) 1.3 % (0.0-4.0); HEMATOCRIT 37.9 % (36-48); HEMOGLOBIN 12.3 g/dL (12.0-16.0); LYMPHOCYTES # (AUTO) 1.4 K/uL (2.5-16.5); LYMPHOCYTES % (AUTO) 26.1 % (20.5-51.1); MEAN CORPUSCULAR HEMOGLOBIN 29 pg (27-31); MEAN CORPUSCULAR HGB CONC 33 g/dL (33-37); MEAN CORPUSCULAR VOLUME 90.5 fL (80-94); MONOCYTES # (AUTO) 0.7 K/uL (0.8-1.0); MONOCYTES % (AUTO) 13.4 % (1.7-9.3); NEUTROPHILS # (AUTO) 3.1 K/uL (1.8-7.7); NEUTROPHILS % (AUTO) 58.7 % (42.2-75.2); PLATELET COUNT (AUTO) 200 K/uL (140-450); RED BLOOD CELL COUNT(AUTO) 4.19 MIL/uL (4.20-5.40); WHITE BLOOD COUNT (AUTO) 5.2 K/uL (4.8-10.8)
--- NOTE | 2020-02-12 05:30 | NUR ---
PATIENT CARE DONE, KEPT CLEAN, DRY AND COMFORTABLE, ALL NEEDS ATTENDED, NO DISTRESS NOTED.
[2020-02-12 05:47] LABS: ANION GAP 12.8 (8-16); CARBON DIOXIDE 25.9 mmol/L (21-32); CREATININE 1.1 mg/dL (0.6-1.3); POTASSIUM 3.7 mmol/L (3.5-5.1)
--- NOTE | 2020-02-12 07:05 | NUR ---
PATIENT IS IN STABLE CONDITION. BEDSIDE ENDORSEMENT GIVEN TO AM SHIFT RN FOR CONTINUITY OF CARE.
--- NOTE | 2020-02-12 07:06 | NUR ---
RECEIVED FROM CHURN OPERATOR MARGARINE NURSE, AWAKE, ALERT, ORIENTEDX4, BREATHING SPONTANEOUSLY WITH O2 AT 2L/MIN VIA NASAL CANNULA, NOT IN DISTRESS NOTED. WITH IV CANNULA G20 AT LEFT AC ON SALINE LOCK NOTED. SAFETY MEASURES IN PLACE AND CONTINUE MONITOR.
[2020-02-12 08:00] VITALS: BP 110/67
[2020-02-12] MEDS: SPIRONOLACTONE 25 MG TAB PO SCH (08:59)
[2020-02-12] MEDS: levETIRAcetam 500 MG TAB PO SCH ×2 (09:01→21:31)
[2020-02-12] MEDS: ESCITALOPRAM 20 MG TAB PO SCH (09:02)
[2020-02-12] MEDS: ASPIRIN 81 MG TAB.CHEW PO SCH (09:02)
[2020-02-12] MEDS: carvediloL 6.25 MG TAB PO SCH (09:03)
[2020-02-12] MEDS: LOSARTAN 25 MG TAB PO SCH (09:03)
[2020-02-12] MEDS: PANTOPRAZOLE 40 MG TABEC PO SCH (09:06)
--- NOTE | 2020-02-12 09:06 | NUR ---
FULLY AWAKE AND ALERT, DUE MEDICATION GIVEN
[2020-02-12] MEDS: HYDROcodone/APAP 7.5/325 MG 1 TAB PO PRN ×2 (10:04→22:02)
[2020-02-12] MEDS: FUROSEMIDE 20 MG/2 ML VIAL IVP SCH ×2 (10:05→21:00)
--- NOTE | 2020-02-12 10:08 | NUR ---
COMPLAINED OF SEVERE BACK PAIN 12/17, NORCO 1 TAB ORDERED PRN GIVEN. SAFETY MEASURES IN PLACE.
[2020-02-12 12:00] VITALS: BP 98/60
[2020-02-12] MEDS ORDERED: PSEUDOEPHEDRINE 30 MG TAB PO SCH (12:00)
--- NOTE | 2020-02-12 12:05 | NUR ---
VITAL SIGNS TAKEN AND RECORDED, STABLE
--- NOTE | 2020-02-12 14:08 | NUR ---
AWAKE NAD FULLY ALERT AND TALKING TO THE GEOTECHNICAL FIELD TECHNICIAN.
[2020-02-12 16:00] VITALS: BP 110/71
[2020-02-12] MEDS: LORazepam 2 MG/ML VIAL IVP PRN (16:12)
--- NOTE | 2020-02-12 16:16 | NUR ---
APPARENTLY CRYING AND MODERATE ANXIETY NOTED, ATIVAN 1MG IV PUSH ORDERED PRN GIVEN, KEPT CALM AND COMFORTABLE TO BED.
--- NOTE | 2020-02-12 18:19 | NUR ---
DINNER SERVED, ABLE TO FEED HERSELF AND CONSUMED 75% OF FOOD.
--- NOTE | 2020-02-12 19:21 | NUR ---
ENDORSED TO BARREL WATERER NURSE IN STABLE CONDITION FOR CONTINUITY OF CARE.
--- NOTE | 2020-02-12 19:22 | NUR ---
RECEIVED PT FROM DAY RN. PT AOX4 ON 2L N/C. RESPIRATIONS EVEN AND UNLABORED. DENIES SOB. NO DISTRESS NOTED. DENIES PAIN. IV SITE LAC 20G, INTACT, SALINE LOCK. SAFETY MEASURES IN PLACE. FALL PRECAUTION AND SEIZURE PRECAUTION IN PLACE. CALL LIGHT WITHIN REACH. WILL CONTINUE TO MONITOR.
[2020-02-12 20:00] VITALS: BP 117/70
[2020-02-12] MEDS: ATORVASTATIN 20 MG TAB PO SCH (21:33)
--- NOTE | 2020-02-12 21:35 | NUR ---
HELD DIURETICS DUE TO PT LOW BLOOD PRESSURE OF 111/70. ADMINISTERED SCHEDULED MEDICATION PER MD. PT TOLERATED WELL. WILL CONTINUE TO MONITOR
[2020-02-12] MEDS: PSEUDOEPHEDRINE 30 MG TAB PO SCH (21:44)
--- NOTE | 2020-02-12 22:02 | NUR ---
C/O BACK PAIN 11/17, PRN PAIN MEDICATION PER MD GIVEN. SAFETY MEASURES IN PLACE. WILL CONTINUE TO MONITOR
--- NOTE | 2020-02-12 22:35 | NUR ---
PATIENT ASKED FOR SNACK, GAVE SANDWICH AND JELL O
[2020-02-13] VITALS: BP 104/65
--- NOTE | 2020-02-13 00:15 | NUR ---
PT ASLEEP IN BED. RESPIRATIONS EVEN AND UNLABORED. NO DISTRESS NOTED. WILL CONTINUE TO MONITOR
--- NOTE | 2020-02-13 02:50 | NUR ---
PT ASLEEP IN BED. NO DISTRESS NOTED. SAFETY MEASURES IN PLACE. CALL LIGHT WITHIN REACH. WILL CONTINUE TO MONITOR
[2020-02-13 04:00] VITALS: BP 116/75
--- NOTE | 2020-02-13 06:20 | NUR ---
PT AWAKE IN BED GETTING LABS DRAWN AT BEDSIDE. PT TOLERATED WELL. PT DENIES SOB, DENIES PAIN. WILL CONTINUE TO MONITOR
[2020-02-13 06:55] LABS: BASOPHILS % (AUTO) 0.6 % (0.0-2.0); EOSINOPHILS # (AUTO) 0.1 K/uL (0-0.4); EOSINOPHILS % (AUTO) 1.8 % (0.0-4.0); LYMPHOCYTES # (AUTO) 2.3 K/uL (2.5-16.5); MEAN CORPUSCULAR HEMOGLOBIN 30 pg (27-31); MEAN CORPUSCULAR HGB CONC 32 g/dL (33-37); MEAN CORPUSCULAR VOLUME 90.8 fL (80-94); MONOCYTES # (AUTO) 0.6 K/uL (0.8-1.0); MONOCYTES % (AUTO) 12.7 % (1.7-9.3); NEUTROPHILS # (AUTO) 1.6 K/uL (1.8-7.7); NEUTROPHILS % (AUTO) 34.9 % (42.2-75.2); PLATELET COUNT (AUTO) 199 K/uL (140-450); RED BLOOD CELL COUNT(AUTO) 4.08 MIL/uL (4.20-5.40); RED CELL DISTRIBUTION WIDTH 13.9 % (11.6-13.7); WHITE BLOOD COUNT (AUTO) 4.5 K/uL (4.8-10.8)
[2020-02-13 07:01] LABS: ANION GAP 12.4 (8-16); CARBON DIOXIDE 25.6 mmol/L (21-32); CREATININE 0.9 mg/dL (0.6-1.3)
--- NOTE | 2020-02-13 07:10 | NUR ---
ENDORSED PT TO DAY RN FOR CONTINUITY OF CARE. PT IN STABLE CONDITION
--- NOTE | 2020-02-13 07:30 | NUR ---
RECEIVED REPORT FROM [facility] NURSE, ASSUMED CARE. PT RESTING COMFORTABLY WITH NO S/S OF PAIN AND/OR DISTRESS AT THIS TIME. PERSONAL BELONGINGS, BEDSIDE TABLE, CALL LIGHT WITHIN REACH. WILL CONTINUE TO MONITOR.
[2020-02-13 08:00] VITALS: BP 120/71
[2020-02-13] MEDS: FUROSEMIDE 20 MG/2 ML VIAL IVP SCH ×2 (08:16→20:33)
[2020-02-13] MEDS: levETIRAcetam 500 MG TAB PO SCH ×2 (08:16→20:34)
[2020-02-13] MEDS: ESCITALOPRAM 20 MG TAB PO SCH (08:17)
[2020-02-13] MEDS: ASPIRIN 81 MG TAB.CHEW PO SCH (08:17)
[2020-02-13] MEDS: LOSARTAN 25 MG TAB PO SCH (08:18)
[2020-02-13] MEDS: carvediloL 6.25 MG TAB PO SCH (08:21)
[2020-02-13] MEDS: PANTOPRAZOLE 40 MG TABEC PO SCH (08:22)
[2020-02-13] MEDS: HYDROcodone/APAP 7.5/325 MG 1 TAB PO PRN ×3 (08:22→20:34)
[2020-02-13] MEDS: SPIRONOLACTONE 25 MG TAB PO SCH (08:24)
[2020-02-13] MEDS: LORazepam 2 MG/ML VIAL IVP PRN ×3 (09:46→22:12)
[2020-02-13] MEDS: PSEUDOEPHEDRINE 30 MG TAB PO SCH ×2 (09:50→20:34)
[2020-02-13 12:00] VITALS: BP 110/64
[2020-02-13 16:00] VITALS: BP 112/56
--- NOTE | 2020-02-13 18:52 | NUR ---
CARE PLAN REVIEWED, INTERVENTIONS IMPLEMENTED: PAIN MGMT, REPOSITIONING THROUGHOUT SHIFT, LABS AND I/O MONITORED. VSS, AFEBRILE, O2 SAT >92% ON 2LPM NC. C/O PAIN X2 WITH RELIEF FROM PRN PAIN MEDS. PT HAD POPEYES AND ICE CREAM DELIVERED FOR DINNER FROM FAMILY. PT INQUIRING ABOUT MEDICATION INSURANCE, CM AWARE, PT'S INFORMED VIA CM. ALL NEEDS MET THIS SHIFT. PERSONAL BELONGINGS, BEDSIDE TABLE, CALL LIGHT WITHIN REACH. WILL CONTINUE TO MONITOR.
[2020-02-13 20:00] VITALS: BP 99/73
--- NOTE | 2020-02-13 20:00 | NUR ---
RECEIVED PATIENT FROM AYLIN ALVA FOR CONTINUITY OF CARE. TELE PATIENT. AAOX4. RESPIRATIONS EVEN, UNLABORED. SKIN WARM, DRY. SALINE LOCK TO LEFT AC 22G PATENT/INTACT. ABDOMEN SOFT, NONTENDER, NONDISTENDED. NO C/O PAIN. NO S/S ACUTE DISTRESS. PATIENT IS CONTINENT OF BOWEL/BLADDER. AMBULATES WELL. PLAN OF CARE DISCUSSED WITH PATIENT. CALL LIGHT IN REACH.
[2020-02-13] MEDS: ATORVASTATIN 20 MG TAB PO SCH (20:34)
--- NOTE | 2020-02-13 20:34 | NUR ---
PATIENT C/O ACHING BACK PAIN 11/17. MEDICATED ORDERED. CALL LIGHT WITHIN REACH.
--- NOTE | 2020-02-13 21:34 | NUR ---
REASSESSED PATIENT'S PAIN LEVEL AT 2/10, TOLERABLE PAIN LEVEL.
--- NOTE | 2020-02-13 22:10 | NUR ---
ATTEMPTED TO ADMINISTER ATIVAN ORDERED BUT IV SITE WAS LEAKING AND MEDICATION WAS NOT GIVEN. IV SITE CHANGED TO RIGHT FOREARM 20G USING ASEPTIC TECHNIQUE. LEFT AC 22G REMOVED, CANNULA INTACT. NO DISCOMFORT NOTED FROM PATIENT. REMOVED ATIVAN AGAIN FROM OMNICELL TO ADMINISTER CORRECTLY.
--- NOTE | 2020-02-13 23:02 | NUR ---
PATIENT RESTING COMFORTABLY IN BED AT THIS TIME. NO C/O PAIN. NO S/S ACUTE DISTRESS. CALL LIGHT WITHIN REACH.
[2020-02-14] VITALS: BP 101/70
--- NOTE | 2020-02-14 01:29 | NUR ---
MADE ROUNDS. PATIENT IS ASLEEP. NO S/S ACUTE DISTRESS. CALL LIGHT WITHIN REACH.
[2020-02-14] MEDS: HYDROcodone/APAP 7.5/325 MG 1 TAB PO PRN ×2 (02:03→08:25)
--- NOTE | 2020-02-14 02:03 | NUR ---
PATIENT C/O ACHING BACK PAIN 12/17. MEDICATED ORDERED. CALL LIGHT WITHIN REACH.
--- NOTE | 2020-02-14 03:05 | NUR ---
PATIENT IS ASLEEP. NO S/S ACUTE DISTRESS. CALL LIGHT WITHIN REACH. Addendum: 02/14/20 at 0309 by Kamilah Minaya RN REASSESSED PAIN LEVEL 0/10, PATIENT IS ASLEEP.
[2020-02-14 04:00] VITALS: BP 100/56
[2020-02-14] MEDS: LORazepam 2 MG/ML VIAL IVP PRN (04:24)
--- NOTE | 2020-02-14 05:30 | NUR ---
PATIENT RESTING COMFORTABLY IN BED. NO S/S ACUTE DISTRESS. CALL LIGHT WITHIN REACH.
--- NOTE | 2020-02-14 07:30 | NUR ---
RECEIVED REPORT FROM [facility] NURSE, ASSUMED CARE. PT RESTING COMFORTABLY WITH NO S/S OF PAIN AND/OR DISTRESS AT THIS TIME. PERSONAL BELONGINGS, BEDSIDE TABLE, CALL LIGHT WITHIN REACH. WILL CONTINUE TO MONITOR.
[2020-02-14 08:00] VITALS: BP_SYST 109; BP_SYST 115; BP_DIAS 70; BP_DIAS 79
[2020-02-14] MEDS: ESCITALOPRAM 20 MG TAB PO SCH (08:24)
[2020-02-14] MEDS: FUROSEMIDE 20 MG/2 ML VIAL IVP SCH (08:24)
[2020-02-14] MEDS: ASPIRIN 81 MG TAB.CHEW PO SCH (08:24)
[2020-02-14] MEDS: PSEUDOEPHEDRINE 30 MG TAB PO SCH (08:25)
[2020-02-14] MEDS: SPIRONOLACTONE 25 MG TAB PO SCH (08:25)
[2020-02-14] MEDS: levETIRAcetam 500 MG TAB PO SCH (08:26)
[2020-02-14] MEDS: carvediloL 6.25 MG TAB PO SCH (08:26)
[2020-02-14] MEDS: PANTOPRAZOLE 40 MG TABEC PO SCH (08:26)
[2020-02-14] MEDS: LOSARTAN 25 MG TAB PO SCH (08:27)
--- NOTE | 2020-02-14 09:34 | NUR ---
(02/14/20) RD INITIAL ASSESSMENT COMPLETED PLEASE REFER TO NUTRITION ASSESSMENT UNDER CARE ACTIVITY FOR ESTIMATED NUTRITIONAL NEEDS. RD RECOMMENDATIONS: 1. CONTINUE CARDIAC DIET TOLERATED. 2. CONSULT RDN PRN. 3. RD WILL F/U 5-7 DAYS; LOW RISK. PERI CASANOVA MS, RDN
[2020-02-14] MEDS ORDERED: LOSA25TA43 PO (09:55)
[2020-02-14] MEDS ORDERED: ATOR20TA40 PO (09:55)
[2020-02-14] MEDS ORDERED: CARV6.25 PO (09:55)
[2020-02-14] MEDS ORDERED: FURO-570 PO (09:55)
[2020-02-14] MEDS ORDERED: ESCI20TA47 PO (09:55)
[2020-02-14] MEDS ORDERED: ASPI81CT95 PO (09:55)
[2020-02-14] MEDS ORDERED: SPIR25TA PO (09:55)
[2020-02-14] MEDS ORDERED: LEVE750T3 PO (09:55)
[2020-02-14 10:16] VITALS: BP 115/70
--- NOTE | 2020-02-14 10:58 | NUR ---
PT DISCHARGED WITH BELONGINGS, PICKED UP BY . DISCHARGE PACKET SIGNED. IV AND ID BAND REMOVED.
== END 2020-02-14 10:52 | disposition home or self-care (01) | DRG 280 ==
LOC: MED 07:56 → MTU 10:44
PROVIDERS: ADMIT Family Medicine; ATTEND Family Medicine
DX: I11.0 Hypertensive heart disease with heart failure (principal); I21.A1 Myocardial infarction type 2; J96.00 Acute respiratory failure, unspecified whether with hypoxia or hypercapnia; E44.1 Mild protein-calorie malnutrition; I50.43 Acute on chronic combined systolic (congestive) and diastolic (congestive) heart failure; F17.210 Nicotine dependence, cigarettes, uncomplicated; F32.9 Major depressive disorder, single episode, unspecified; K21.9 Gastro-esophageal reflux disease without esophagitis; F41.9 Anxiety disorder, unspecified; F12.10 Cannabis abuse, uncomplicated; F15.10 Other stimulant abuse, uncomplicated; G40.909 Epilepsy, unspecified, not intractable, without status epilepticus; I42.9 Cardiomyopathy, unspecified; Z20.828 Contact with and (suspected) exposure to other viral communicable diseases; Z79.899 Other long term (current) drug therapy; Z86.73 Personal history of transient ischemic attack (TIA), and cerebral infarction without residual deficits; Z91.14 Patient's other noncompliance with medication regimen; Z91.19 Patient's noncompliance with other medical treatment and regimen; Z56.0 Unemployment, unspecified; Z03.818 Encounter for observation for suspected exposure to other biological agents ruled out; Z88.0 Allergy status to penicillin; Z88.8 Allergy status to other drugs, medicaments and biological substances; Z82.3 Family history of stroke; Z71.51 Drug abuse counseling and surveillance of drug abuser; Z68.21 Body mass index [BMI] 21.0-21.9, adult
CPT/HCPCS: 36415; 71045; 73090; 80048; 80053; 80305; 81001; 82150; 83690; 83735; 83880; 84100; 84439; 84484; 85025; 85610; 85730; 87081; 93005; 96361; 96372; 96374; 97116; 97161-GP; 99285; G0480; G0482; J1650; J1940; J2060; J3490; Q0092

== ENCOUNTER 2020-02-16 13:50 | Emergency (ER) | payer OTHER, SELFPAY ==
[~2020-02-16] VITALS: Ht 170.2 cm; Wt 79.4 kg
[~2020-02-16 13:50] MED LIST changes: -ATI.5 PO; -ONDA8TAB PO
--- NOTE | 2020-02-16 13:55 | NUR ---
TAKEN TO BED 9 VIA W/C
[2020-02-16 14:03] VITALS: BP 133/87
--- NOTE | 2020-02-16 14:25 | NUR ---
59 Y/O F C/C BACK PAIN AND VISUAL BLACK DOTS PER PT X 2 DAYS. PER PT DENIES TRAUMA,INJURIES, OR HEAVY LIFTING IN REGARDS OF BACK DISCOMFORT, CURRENT PAIN 12/17. PER PT HX OF SEIZURES, DENIES SEEING BLACK DOTS AN AURA BEFORE SEIZURES. DOES NOT RECALL REASON FOR BLACK DOTS. NEURO ASSESSMENT WNL, PUPILS PERRLA, CN II,III,IV, WNL. ALLERGIES PNC,LISINOPRIL. HX HTN,SZ. RX DOES NOT RECALL. DENIES DYSPNEA,CHEST PAIN. SIDE RAIL X1. VSS,EUPNIC,A/OX4.
--- NOTE | 2020-02-16 14:30 | NUR ---
ERMD AT BEDSIDE
--- NOTE | 2020-02-16 14:34 | NUR ---
BLOOD COLLECTED BY LAB AT BEDSIDE
--- NOTE | 2020-02-16 14:35 | NUR ---
LEODAN MICHEL AT BEDSIDE FOR EKG
[2020-02-16] MEDS ORDERED: MORPHINE SULFATE 4 MG/ML SYR IVP ONE (14:40)
[2020-02-16] MEDS ORDERED: NACL 0.9% 1,000 ML IV ONE (14:40)
[2020-02-16] MEDS ORDERED: ONDANSETRON 4 MG/2 ML VIAL IVP ONE (14:40)
--- NOTE | 2020-02-16 14:48 | NUR ---
RAD AT BEDSIDE
[2020-02-16 14:54] LABS: HEMATOCRIT 36.6 % (36-48); HEMOGLOBIN 11.9 g/dL (12.0-16.0); MEAN CORPUSCULAR HEMOGLOBIN 29 pg (27-31); MEAN CORPUSCULAR HGB CONC 33 g/dL (33-37); MEAN CORPUSCULAR VOLUME 89.7 fL (80-94); PLATELET COUNT (AUTO) 208 K/uL (140-450); RED BLOOD CELL COUNT(AUTO) 4.08 MIL/uL (4.20-5.40); RED CELL DISTRIBUTION WIDTH 13.8 % (11.6-13.7); WHITE BLOOD COUNT (AUTO) 3.8 K/uL (4.8-10.8)
[2020-02-16 15:03] LABS: PROTHROMBIN TIME 9.7 secs (10.8-13.4)
[2020-02-16 15:04] LABS: ALBUMIN 3.2 g/dL (3.4-5.0); ANION GAP 12.3 (8-16); CARBON DIOXIDE 26.6 mmol/L (21-32); CREATININE 0.9 mg/dL (0.6-1.3); POTASSIUM 3.9 mmol/L (3.5-5.1); TOTAL BILIRUBIN 0.2 mg/dL (0.0-1.0)
--- NOTE | 2020-02-16 15:33 | NUR ---
PT TAKEN TO CT VIA ZECHARIAH
[2020-02-16 15:54] LABS: LYMPHOCYTES % (MANUAL) 43 % (20-46); MONOCYTES % (MANUAL) 8 % (5-12)
--- NOTE | 2020-02-16 17:26 | NUR ---
TRA [facility]GEL - PHONE [phone]
--- NOTE | 2020-02-16 17:40 | NUR ---
PT AMBULATED TO RESTROOM, STEADY GAIT
[2020-02-16 17:54] VITALS: BP 128/82
--- NOTE | 2020-02-16 17:56 | NUR ---
Patient discharged with v/s stable. Written and verbal after care instructions given and explained. Patient alert, oriented and verbalized understanding of instructions. Ambulatory with steady gait. All questions addressed prior to discharge. ID band removed. Patient advised to follow up with PMD. Rx of FLEXERIL given. Patient educated on indication of medication including possible reaction and side effects. Opportunity to ask questions provided and answered.
== END 2020-02-16 17:56 | disposition home or self-care (01) ==
LOC: MED 13:50
DX: M54.5 Low back pain (principal); R51 Headache; H53.149 Visual discomfort, unspecified; I11.0 Hypertensive heart disease with heart failure; I50.9 Heart failure, unspecified; K21.9 Gastro-esophageal reflux disease without esophagitis; F17.210 Nicotine dependence, cigarettes, uncomplicated; F15.90 Other stimulant use, unspecified, uncomplicated; F12.90 Cannabis use, unspecified, uncomplicated; Z86.73 Personal history of transient ischemic attack (TIA), and cerebral infarction without residual deficits; Z98.890 Other specified postprocedural states; Z79.82 Long term (current) use of aspirin; Z79.899 Other long term (current) drug therapy; Z88.0 Allergy status to penicillin; Z88.8 Allergy status to other drugs, medicaments and biological substances
CPT/HCPCS: 36415; 71045; 71275; 74174; 80053; 83880; 84484; 85025; 85610; 85730; 93005; 96361; 96374; 96375; 99285; J2270; J2405; J7030; Q0092; Q9967

== ENCOUNTER 2020-03-30 00:54 | Inpatient (IN) | payer OTHER, SELFPAY ==
[~2020-03-30] VITALS: Ht 157.5 cm; Wt 74.4 kg
--- NOTE | 2020-03-30 01:10 | NUR ---
To ED bed 01
[2020-03-30 01:11] VITALS: BP 140/92
[2020-03-30 01:14] LABS: BASOPHILS # (AUTO) 0.1 K/uL (0.00-0.22); BASOPHILS % (AUTO) 1.4 % (0.0-2.0); EOSINOPHILS # (AUTO) 0.1 K/uL (0-0.4); HEMATOCRIT 33.6 % (36-48); HEMOGLOBIN 11.2 g/dL (12.0-16.0); LYMPHOCYTES # (AUTO) 2.4 K/uL (2.5-16.5); LYMPHOCYTES % (AUTO) 42.5 % (20.5-51.1); MEAN CORPUSCULAR HEMOGLOBIN 29 pg (27-31); MEAN CORPUSCULAR HGB CONC 33 g/dL (33-37); MEAN CORPUSCULAR VOLUME 87.8 fL (80-94); MONOCYTES # (AUTO) 0.8 K/uL (0.8-1.0); NEUTROPHILS # (AUTO) 2.2 K/uL (1.8-7.7); NEUTROPHILS % (AUTO) 40.1 % (42.2-75.2); PLATELET COUNT (AUTO) 191 K/uL (140-450); RED BLOOD CELL COUNT(AUTO) 3.83 MIL/uL (4.20-5.40); RED CELL DISTRIBUTION WIDTH 14.1 % (11.6-13.7); WHITE BLOOD COUNT (AUTO) 5.6 K/uL (4.8-10.8)
--- NOTE | 2020-03-30 01:15 | NUR ---
RECEIVED IN BED 1 WITH C/O CP AND SOB X 1.5 HRS. PT HAS H/O CHF. SLIGHT SOB NOTED ON EXERTION. LUNGS ARE DIMINISHED . CM = ST WITH MILTIFOCAL PVC'S PMH ; CHF, SZ ALLERGY ; PCN
--- NOTE | 2020-03-30 01:18 | NUR ---
ERMD AT BEDSIDE TO ASSESS PATIENT.
[2020-03-30] MEDS ORDERED: MORPHINE SULFATE 4 MG/ML SYR IVP ONE (01:25)
[2020-03-30] MEDS ORDERED: FUROSEMIDE 40 MG/4 ML VIAL IVP ONE (01:25)
--- NOTE | 2020-03-30 01:25 | NUR ---
XRAY AT BEDSIDE.
[2020-03-30 01:28] LABS: ALBUMIN 3.2 g/dL (3.4-5.0); CARBON DIOXIDE 25.7 mmol/L (21-32); CREATININE 1.1 mg/dL (0.6-1.3); POTASSIUM 3.7 mmol/L (3.5-5.1); TOTAL BILIRUBIN 0.1 mg/dL (0.0-1.0)
[2020-03-30] MEDS ORDERED: ATOR10TA PO (01:28)
[2020-03-30] MEDS ORDERED: LEVE250T1 PO (01:28)
[2020-03-30] MEDS ORDERED: OMEP-100 PO (01:28)
[2020-03-30] MEDS ORDERED: ESCI5TAB12 PO (01:28)
[2020-03-30] MEDS ORDERED: SPIR25TA PO (01:28)
[2020-03-30] MEDS ORDERED: TRAZ-343 PO (01:28)
[2020-03-30] MEDS ORDERED: FURO-570 PO (01:28)
--- NOTE | 2020-03-30 02:20 | NUR ---
iS RESTING MORE COMFORTABLY AT PRESENT. PAIN HAS DECREASED TO 5/10.
--- NOTE | 2020-03-30 03:10 | NUR ---
ANTIGEN SWAB OBTAINED, RIGHT NARES. SENT TO LAB
--- NOTE | 2020-03-30 04:15 | NUR ---
TO 106B VIA GURNEY.
--- NOTE | 2020-03-30 04:30 | NUR ---
ADMITTED 59, FEMALE, AMBULATORY, NO SOB, NO C/O PAIN, NO DISTRESS, IV SITE AT RFA 18 G, INTACT, ON ROOM AIR, AAOX4, INTACT SKIN, MRSA SWAB DONE, V/S TAKEN, ORIENTED TO BED AND ROOM, SAFETY MEASURES IN PLACE, LOW BED IN PLACE, SEIZURE PROTECTION IN PLACE, PLAN OF CARE DISCUSSED, KEPT COMFORTABLE, CALL LIGHT WITHIN REACH, WILL MONITOR.
--- NOTE | 2020-03-30 04:30 | NUR ---
Patient will be admitted to care of DR. ROSE. Admited to 105B. Belongings list completed. Report to AYLIN OJEDA
--- NOTE | 2020-03-30 04:30 | NUR ---
REPORT TO AYLIN OJEDA.
--- NOTE | 2020-03-30 05:24 | NUR ---
INFORMED DR. ROSE ON NEW ADMISSION. AWAITING ORDER.
--- NOTE | 2020-03-30 06:20 | NUR ---
PATIENT IS ASLEEP.
--- NOTE | 2020-03-30 06:30 | NUR ---
PAGED DR. ROSE, ON VOICEMAIL.
--- NOTE | 2020-03-30 07:30 | NUR ---
PATIENT IS IN STABLE CONDITION, ALSO ENDORSED TO AYLIN CHOWDARY TO F/U ORDERS, EPI SAID WILL F/U.
--- NOTE | 2020-03-30 07:35 | NUR ---
RECEIVED BEDSIDE REPORT FROM NIGHTSHIFT NURSE. PT ABLE TO MAKE NEEDS KNOWN. RESPIRATIONS EVEN AND UNLABORED WITH NO SOB OR RESPIRATORY DISTRESS. SKIN WARM AND DRY TO TOUCH. IV SITE IN RFA 18G IS CLEAN, DRY, AND INTACT. SAFETY MEASURES IN PLACE. WILL CONTINUE TO MONITOR
[2020-03-30 08:00] VITALS: BP 95/69
[2020-03-30] MEDS ORDERED: DOCUSATE SODIUM 100 MG GELCAP PO PRN (08:35)
[2020-03-30] MEDS ORDERED: POTASSIUM CHLORIDE 10 MEQ TABER PO PRN (08:35)
[2020-03-30] MEDS ORDERED: ACETAMINOPHEN 325 MG TAB PO PRN (08:35)
--- NOTE | 2020-03-30 08:51 | NUR ---
PATIENT HAS BEEN SCREENED AND CATEGORIZED MODERATE NUTRITION RISK. PATIENT WILL BE SEEN WITHIN 3-5 DAYS OF ADMISSION. 04/01/20 04/03/[address]
[2020-03-30] MEDS: METOPROLOL 25 MG TAB PO SCH ×2 (09:00→20:33)
[2020-03-30] MEDS ORDERED: LEVETIRACETAM 750 MG PO SCH (09:00)
[2020-03-30 09:15] LABS: PROTHROMBIN TIME 9.3 secs (10.8-13.4)
[2020-03-30 09:19] LABS: CHOL/HDL RATIO 1.7 (1-4.5); FREE T4 (FREE THYROXINE) 0.98 ng/dL (0.76-1.46); MAGNESIUM 2.1 mg/dL (1.8-2.4); PHOSPHORUS 4.1 mg/dL (2.5-4.9); THYROID STIMULATING HORMONE 0.44 uIU/mL (0.34-3.74)
--- NOTE | 2020-03-30 09:46 | NUR ---
SOCIAL WORK NOTE: Patient's Orientation Unable To Assess Information Provided By MER MUNROE - Comments SW WAS UNABLE TO MEET PATIENT AT BEDSIDE DUE TO MEDICAL CONDITION. SW COMPLETED ASSESSMENT WITH PATIENT'S . Biochemistry Specialist, Realtionship and Phone Number MER MUNROE [phone] Healthcare Power of General Sales Manager No Does Patient Have a POLST No Identifying Problems No Social Work Triggers Is A Social Work Consult Needed No Mandate Report Filed No Explanation Of Identifying Problems PATIENT IS A 59-YEAR-OLD FEMALE ADMITTED FOR CHEST PAIN. PATIENT HAS PMHX OF CHF, HYPERTENSION, AND SEIZURES. REPORTED NO HISTORY OF SUBSTANCE ABUSE OR MENTAL HEALTH. Admitted From Home Pre-Admission Level Of Functioning Status Independent/Ambulatory Prior Resources/Services Used In Last 12 Months No Prior Resources Used Prior DME No Prior DME Used Dialysis Comments REPORTED THAT PATIENT DOES NOT RECEIVE DIALYSIS. Living Situation Lives With Family House Patient Had Caregiver No Home Support No Caregiver Issues Financial Issues No Known Financial Issue Referral To The Financial Counselor Needed No Factors/Needs No D/C Needs Identified Explanation And Or Other Factors Affecting/Possible DC Needs PATIENT'S STATED THAT HE WOULD PICK PATIENT UP AT DISCHARGE. Pt/Rep Participated In Discharge Plan Yes Patient/Family Agress With Discharge Plan Yes Discharge Plan Comments TENTATIVE DISCHARGE PLAN IS FOR PATIENT TO RETURN HOME. DC Plan Status Initiated
--- NOTE | 2020-03-30 10:43 | NUR ---
ADMINISTERED SCHEDULED MEDS PRESCRIBED PER MD ORDER. PT TOLERATED WELL, MEDICATION EDUCATION PERFORMED. PATIENT VERBALIZED UNDERSTANDING. SAFETY MEASURES IN PLACE. WILL CONT TO MONITOR.
[2020-03-30] MEDS: ECOTRIN 81 MG TABEC PO SCH (10:53)
[2020-03-30] MEDS: ESCITALOPRAM 20 MG TAB PO SCH (10:53)
[2020-03-30] MEDS: PANTOPRAZOLE 40 MG TABEC PO SCH (10:53)
[2020-03-30] MEDS: SPIRONOLACTONE 25 MG TAB PO SCH (10:54)
[2020-03-30] MEDS ORDERED: CRUSHER, PILL MC ONE (10:54)
[2020-03-30] MEDS: LOSARTAN 25 MG TAB PO SCH (10:54)
[2020-03-30] MEDS: HYDROcodone/APAP 7.5/325 MG 1 TAB PO PRN ×2 (11:02→15:14)
--- NOTE | 2020-03-30 11:02 | NUR ---
PATIENT COMPLAINED OF LOWER BACK PAIN 11/17. ADMINISTERED NORCO PRN PRESCRIBED BY MD ORDER. PATIENT TOLERATED WELL. MEDICATION EDUCATION PROVIDED. PATIENT VERBALIZED UNDERSTANDING. SAFETY MEASURES IN PLACE. WILL CONT TO MONITOR.
[2020-03-30 12:00] VITALS: BP 103/56
--- NOTE | 2020-03-30 12:42 | NUR ---
RECEIVED CALL FROM LAB, PATIENT TROPONIN 0.499. MD AWARE OF TRENDING DOWN. SAFETY MEASURES IN PLACE. WILL CONT TO MONITOR
--- NOTE | 2020-03-30 15:18 | NUR ---
PT REPORTED PAIN 6/10, REQ PAIN MEDICATION. ADMINISTERED PRESCRIBED PRN NORCO PER MD ORDER. PATIENT TOLERATED WELL. MEDICATION EDUCATION PROVIDED. SAFETY MEASURES IN PLACE. WILL CONT TO MONITOR.
--- NOTE | 2020-03-30 15:27 | NUR ---
OBTAINED URINE SPECIMEN FOR UA PRESCRIBED BY MD ORDER. DROPPED OFF AT LAB. PATIENT TOLERATED WELL. SAFETY MEASURES IN PLACE.
--- NOTE | 2020-03-30 15:47 | NUR ---
DISCHARGE PLANNING: THIS IS A 59 Y/O FEMALE PATIENT FROM HOME, WHO CAME IN DUE TO CHEST. PAST MEDICAL HISTORY INCLUDE CHF, HTN, STROKE, ANXIETY, DEPRESSION, ARTHRITIS. TROPS TRENDING DOWN 0.499. COVID RAPID TEST NEGATIVE. ON LASIX. CARDIO CONSULT IN PLACE AND SEEN - HOLD OFF ON ISCHEMIC TESTING, CAN FOLLOW UP WITH HER USUAL CARDIO. DC PLAN BACK TO HOME ONCE STABLE.
[2020-03-30 15:51] LABS: APPEARANCE,URINE CLEAR (CLEAR); BILIRUBIN,URINE NEGATIVE (NEGATIVE); BLOOD, URINE NEGATIVE (NEGATIVE); COLOR,URINE YELLOW (YELLOW); LEUKOCYTE ESTERASE ,URINE NEGATIVE (NEGATIVE); NITRITE, URINE NEGATIVE (NEGATIVE); PH,URINE 5.5 (5.0-9.0); UGLUCOSE NEGATIVE (NEGATIVE)
[2020-03-30 16:00] VITALS: BP 107/58
[2020-03-30 16:00] LABS: BARBITURATE, URINE NEGATIVE ng/ml (NEG <=200)
[2020-03-30 16:01] LABS: BENZODIAZEPINE, URINE NEGATIVE ng/mL (NEG <=200); CANNABINOID, URINE POSITIVE ng/mL (NEG <=50); COCAINE, URINE POSITIVE ng/mL (NEG <=300); OPIATE, URINE POSITIVE ng/mL (NEG <=2000); PHENCYCLIDINE SCREEN,URINE NEGATIVE ng/mL (NEG <=25)
--- NOTE | 2020-03-30 16:16 | NUR ---
PATIENT RESTING IN BED. ABLE TO MAKE NEEDS KNOWN. RESPIRATIONS EVEN AND UNLABORED W/ NO SOB OR RESPIRATORY DISTRESS. SKIN WARM AND DRY TO TOUCH. SAFETY MEASURES IN PLACE. WILL CONT TO MONITOR.
--- NOTE | 2020-03-30 18:00 | NUR ---
PATIENT EATING DINNER. ABLE TO MAKE NEEDS KNOWN. RESPIRATIONS EVEN AND UNLABORED W/ NO SOB OR RESPIRATORY DISTRESS. SKIN WARM AND DRY TO TOUCH. SAFETY MEASURES IN PLACE. WILL CONT TO MONITOR.
[2020-03-30] MEDS ORDERED: LORazepam 0.5 MG TAB PO PRN (18:45)
--- NOTE | 2020-03-30 18:53 | NUR ---
PATIENT COMPLAINED OF ANXIETY. DR ROSE NOTIFIED. ORDERS RECEIVED. ADMINISTERED PRN ATIVAN PRESCRIBED PER MD ORDER. PATIENT TOLERATED WELL. MEDICATION EDUCATION PROVIDED. SAFETY MEASURES IN PLACE. WILL CONT TO MONITOR.
--- NOTE | 2020-03-30 19:21 | NUR ---
ENDORSED AT BEDSIDE TO NIGHTSHIFT NURSE FOR CONTINUITY OF CARE. PT IS STABLE
--- NOTE | 2020-03-30 19:25 | NUR ---
RECEIVED CONTINUITY OF CARE FROM AM NURSE. PT IS SITTING IN BED, A/OX4, PASHTO SPEAKING, BREATHING SPONTANEOUSLY ON ROOM AIR. LUNGS ARE CTAX4, ACTIVE BOWEL TONES NOTED, BILATERAL BRACHIAL PULES NOTED. SKIN IS WARM, DRY, INTACT. IV IS PATENT, ASYMPTOMATIC, INTACT. ORIENTED PT TO STAFF AND CALL LIGHT. BED IS IN LOW POSITION. PT IS IN STABLE CONDITION.
[2020-03-30 20:00] VITALS: BP 119/66
[2020-03-30] MEDS ORDERED: NITROGLYCERIN 0.4 MG TAB SL ONE (20:23)
[2020-03-30] MEDS: NITROGLYCERIN 0.4 MG TAB SL PRN (20:27)
[2020-03-30] MEDS: levETIRAcetam 500 MG TAB PO SCH (20:28)
[2020-03-30] MEDS: traZODone 50 MG TAB PO SCH (20:28)
[2020-03-30] MEDS: ATORVASTATIN 20 MG TAB PO SCH (20:28)
--- NOTE | 2020-03-30 20:30 | NUR ---
ADMINISTERED SCHEDULED MEDICATION. EDUCATION WAS RENDERED. WITHHELD BLOOD PRESSURE MEDICATION DUE TO BLOOD PRESSURE DUE TO DECREASED BLOOD PRESSURE READING.
--- NOTE | 2020-03-30 21:01 | NUR ---
PT REPORTED CHEST PAIN RADIATING TO THE HEAD. NYTROGLYCERIN 0.4GM X 3 WAS ADMINISTERED SUBLINGUAL. AFTER THE THIRD DOSE, ASSESSMENT WAS MADE AND PT VERBALIZED THAT THE PAIN HAS GOTTEN BETTER BUT IS REPORTING SOME DIZZINESS. EDUCATION WAS GIVEN THAT THE PT SHOULD STAY IN BED, HER BLOOD VESSELS HAS BEEN DILATED BY THE ACTION OF THE NYTROGYLCERIN. PT VERBALIZED UNDERSTANDING. WILL CONTINUE TO MONITOR.
[2020-03-30] MEDS: LORazepam 1 MG TAB PO PRN (21:47)
--- NOTE | 2020-03-30 21:51 | NUR ---
ADMINISTERED ATIVAN PER MD ORDER.
--- NOTE | 2020-03-30 23:47 | NUR ---
PT IS SLEEPING. NO SIGNS OF DISTRESS NOTED
[2020-03-31] VITALS: BP 129/86
--- NOTE | 2020-03-31 01:12 | NUR ---
PT IS SLEEPING. NO SIGNS OF DISTRESS NOTED.
--- NOTE | 2020-03-31 03:03 | NUR ---
PT IS SLEEPING. NO SIGNS OF DISTRESS NOTED.
[2020-03-31 04:00] VITALS: BP 124/92
--- NOTE | 2020-03-31 05:04 | NUR ---
ASSESSED PT AND PT IS NOT REPORTING PAIN. PT STATED THAT SHE HAD A GOOD NIGHT SLEEP. PT IS IN STABLE CONDITION.
[2020-03-31 06:19] LABS: BASOPHILS % (AUTO) 0.8 % (0.0-2.0); EOSINOPHILS # (AUTO) 0.1 K/uL (0-0.4); EOSINOPHILS % (AUTO) 1.9 % (0.0-4.0); LYMPHOCYTES % (AUTO) 42.8 % (20.5-51.1); MEAN CORPUSCULAR HEMOGLOBIN 29 pg (27-31); MEAN CORPUSCULAR HGB CONC 33 g/dL (33-37); MEAN CORPUSCULAR VOLUME 89.3 fL (80-94); MONOCYTES # (AUTO) 0.7 K/uL (0.8-1.0); MONOCYTES % (AUTO) 14.6 % (1.7-9.3); NEUTROPHILS # (AUTO) 1.9 K/uL (1.8-7.7); NEUTROPHILS % (AUTO) 39.9 % (42.2-75.2); PLATELET COUNT (AUTO) 202 K/uL (140-450); RED CELL DISTRIBUTION WIDTH 14.3 % (11.6-13.7); WHITE BLOOD COUNT (AUTO) 4.8 K/uL (4.8-10.8)
[2020-03-31 06:22] LABS: ANION GAP 10.9 (8-16); CREATININE 1.1 mg/dL (0.6-1.3); POTASSIUM 3.9 mmol/L (3.5-5.1)
[2020-03-31 06:35] LABS: MAGNESIUM 2.1 mg/dL (1.8-2.4); PHOSPHORUS 3.1 mg/dL (2.5-4.9)
--- NOTE | 2020-03-31 07:30 | NUR ---
RECEIVED BEDSIDE ENDORSEMENT FROM NIGHTSHIFT NURSE. PATIENT IS RESTING IN BED ON RA. NO SIGNS OF RESPIRATORY DISTRESS. RFA 18G IS DRY AND INTACT. SKIN IS WARM AND DRY. SAFETY MEASURES IN PLACE. WILL CONT TO MONITOR.
[2020-03-31 08:00] VITALS: BP 134/69
[2020-03-31 08:09] LABS: T4 (THYROXINE) 5.4 ug/dL (4.5-12.0)
[2020-03-31] MEDS: PANTOPRAZOLE 40 MG TABEC PO SCH (09:00)
[2020-03-31] MEDS: levETIRAcetam 500 MG TAB PO SCH ×2 (09:00→20:10)
[2020-03-31] MEDS: ESCITALOPRAM 20 MG TAB PO SCH (09:00)
[2020-03-31] MEDS: METOPROLOL 25 MG TAB PO SCH ×2 (09:00→20:10)
[2020-03-31] MEDS: SPIRONOLACTONE 25 MG TAB PO SCH (09:57)
[2020-03-31] MEDS: FUROSEMIDE 20 MG/2 ML VIAL IVP SCH (09:57)
[2020-03-31] MEDS: ECOTRIN 81 MG TABEC PO SCH (09:58)
[2020-03-31] MEDS: LOSARTAN 25 MG TAB PO SCH (09:59)
[2020-03-31] MEDS: HYDROcodone/APAP 7.5/325 MG 1 TAB PO PRN ×3 (10:03→20:09)
[2020-03-31] MEDS: LORazepam 1 MG TAB PO PRN ×2 (10:03→19:04)
--- NOTE | 2020-03-31 10:05 | NUR ---
ADMINISTERED SCHED MED PRESCRIBED PER MD ORDER. PT TOLERATED WELL. PT COMPLAINED OF PAIN AND ANXIETY. ADMINISTERED PRN ATIVAN AND NORCO FOR PAIN 5/10 PRESCRIBED PER MD ORDER. MEDICATION EDUCATION PERFORMED. PT VERBALIZED UNDERSTANDING. SAFETY MEASURES IN PLACE. WILL CONTINUE TO MONITOR.
[2020-03-31 12:00] VITALS: BP 112/68
--- NOTE | 2020-03-31 12:00 | NUR ---
PATIENT IN ROOM. ABLE TO MAKE NEEDS KNOWN. VISIBLE RISE AND FALL OF CHEST. NO SIGNS OF DISTRESS. NO CONCERNS AT THIS TIME. SAFETY MEASURES IN PLACE. WILL CONT TO MONITOR.
--- NOTE | 2020-03-31 13:45 | NUR ---
PT RESTING IN BED. ABLE TO MAKE NEEDS KNOWN. RESPIRATIONS EVEN AND UNLABORED WITH NO SOB OR RESPIRATORY DISTRESS. WILL CONTINUE TO MONITOR
--- NOTE | 2020-03-31 15:09 | NUR ---
PATIENT IN ROOM, AMBULATES INDEPENDENTLY. ABLE TO MAKE NEEDS KNOWN. NO SIGNS OF DISTRESS. SKIN WARM AND DRY TO TOUCH. SAFETY MEASURES IN PLACE. WILL CONT TO MONITOR.
--- NOTE | 2020-03-31 15:46 | NUR ---
PATIENT COMPLAINED OF PAIN 01/17. ADMINISTERED PRN NORCO PRESCRIBED BY MD ORDER. PATIENT TOLERATED MEDICATION WELL. MED EDUCATION PROVIDED. PATIENT VERBALIZED UNDERSTANDING. SAFETY MEASURES IN PLACE. WILL CONT TO MONITOR.
[2020-03-31 16:00] VITALS: BP 153/81
--- NOTE | 2020-03-31 17:04 | NUR ---
PT RESTING IN BED. ABLE TO MAKE NEEDS KNOWN. RESPIRATIONS EVEN AND UNLABORED WITH NO SOB OR RESPIRATORY DISTRESS. WILL CONTINUE TO MONITOR
--- NOTE | 2020-03-31 19:05 | NUR ---
PT COMPLAINED OF ANXIETY. PRN ATIVAN ADMINISTERED PRESCRIBED PER MD ORDER. PT TOLERATED WELL. MEDICATION EDUCATION PERFORMED. PT VERBALIZED UNDERSTANDING. SAFETY MEASURES IN PLACE. WILL CONTINUE TO MONITOR
--- NOTE | 2020-03-31 19:20 | NUR ---
RECEIVED BEDSIDE REPORT FROM DAY SHIFT NURSE FOR CONTINUITY OF CARE. PT IS AWAKE AND ALERT. A&OX4. PT IS ON RA WITH BREATHING UNLABORED. SR ON TELE MONITORING. PT IS AMBULATORY AND HAS BATHROOM PRIVILEGES. SKIN IS WARM, DRY, AND INTACT. IV IS IN THE LEFT FOREARM 18 GAUGE SALINE LOCKED. CHF PATIENT WITH NO CHEST PAIN AT THIS TIME STATED BY THE PATIENT. PLAN OF CARE DISCUSSED. BED IS IN THE LOWEST POSITION AND CALL LIGHT IS WITHIN REACH.
--- NOTE | 2020-03-31 19:30 | NUR ---
ENDORSED AT BEDSIDE TO NIGHTSHIFT NURSE FOR CONTINUITY OF CARE. PT IS STABLE
[2020-03-31 20:00] VITALS: BP 149/93
[2020-03-31] MEDS: traZODone 50 MG TAB PO SCH (20:09)
[2020-03-31] MEDS: ATORVASTATIN 20 MG TAB PO SCH (20:09)
--- NOTE | 2020-03-31 20:09 | NUR ---
PT WAS COMPLAINING OF PAIN IN THE BACK AN ACHING PAIN AT A SCALE OF 7/10. PT SAID IT RADIATES TO THE SHOULDER. PT WAS GIVEN NORCO PRN FOR PAIN. WILL MONITOR PAIN LEVEL.
[2020-03-31] MEDS: ONDANSETRON 4 MG/2 ML VIAL IM/IVP PRN (21:06)
[2020-03-31] MEDS: NITROGLYCERIN 0.4 MG TAB SL PRN (21:07)
--- NOTE | 2020-03-31 21:07 | NUR ---
PT HAD EMESIS WHEN SHE AWOKE FROM HER SLEEP. PT WAS GIVEN ZOFRAN PRN FOR NAUSEA. PT IS ALSO COMPLAINING OF CHEST PAIN AND WAS GIVEN NITRO SUBLINGUAL PRN FOR CHEST PAIN. HR IS 75 PRIOR TO ADMINISTRATION. BP IS 145/86 PRIOR TO ADMINISTRATION. WILL MONITOR FOR CHEST PAIN AND NAUSEA.
--- NOTE | 2020-03-31 21:15 | NUR ---
PT DENIES CHEST PAIN AT THIS TIME. PT IS NOW STATING SHE HAS PAIN IN THE BACK THAT IS ACHING AND RADIATING TO THE SHOULDER. PAIN IS RATED AT A SCALE OF 8/10. NORCO PRN PAIN IS NOT DUE AND PT STATES IT DOES NOT HELP WITH THE PAIN. WILL NOTIFY DOCTOR FOR NEW ORDERS.
--- NOTE | 2020-03-31 22:15 | NUR ---
NOTIFIED DR. AGUERO SENIOR HADOOP DEVELOPER TO INFORM HIM THAT THE PATIENT HAS PAIN AT A SCALE OF 8/10 IN THE BACK AND IT IS NOT BEING RELIEVED BY THE NORCO PRN FOR PAIN. WILL WAIT FOR A RESPONSE BACK.
--- NOTE | 2020-03-31 22:25 | NUR ---
DR. AGUERO ORDERED MORPHINE 1 MG IVP ONCE FOR PAIN. WILL ADMINISTER ONCE VERIFIED.
[2020-03-31] MEDS ORDERED: MORPHINE SULFATE 2 MG/ML SYR IVP SCH (22:30)
--- NOTE | 2020-03-31 22:38 | NUR ---
PT WAS GIVEN MORPHINE 1 MG IVP ONCE FOR PAIN. PT WAS GIVEN MEDICATION INFORMATION AND EDUCATION ABOUT MORPHINE. PT VERBALIZED UNDERSTANDING. BP WAS STABLE PRIOR TO ADMINISTRATION.
--- NOTE | 2020-03-31 22:38 | NUR ---
CALLED [facility] TO VERIFY NEW ORDER FOR MORPHINE. THEY WILL VERIFY AND IT WILL BE AVAILABLE SHORTLY STATED BY ASHELY.
[2020-04-01] VITALS: BP 107/70
--- NOTE | 2020-04-01 00:30 | NUR ---
PT IS ASLEEP. NO DISTRESS NOTED. BREATHING IS UNLABORED. NO PAIN NOTED THE PT IS ASLEEP. BED IS IN THE LOWEST POSITION AND CALL LIGHT IS WITHIN REACH.
--- NOTE | 2020-04-01 02:21 | NUR ---
ROUNDED ON PT. SHE IS SLEEPING. PT IS STABLE. NO DISTRESS AT THIS TIME. IV IS SALINE LOCKED. BED IS IN THE LOWEST POSITION. BELONGINGS ARE IN THE REACH.
[2020-04-01 04:00] VITALS: BP 98/59
--- NOTE | 2020-04-01 04:30 | NUR ---
PT IS AWAKE AND STATES THAT SHE SLEPT REALLY WELL. PT DENIES ANY CHEST PAIN OR BACK PAIN. BREATHING IS UNLABORED. HOB IS AT 30 DEGREES. PT IS ON STRICT I&O. ASPIRATION PRECAUTIONS AND SEIZURE PRECAUTIONS IN PLACE. CALL LIGHT IS WITHIN REACH.
--- NOTE | 2020-04-01 06:30 | NUR ---
PT IS ASLEEP. CHEST RISE AND FALL IS SYMMETRICAL. NO PAIN NOTED. PT IS STABLE. BED IS IN LOWEST POSITION.
--- NOTE | 2020-04-01 07:10 | NUR ---
ENDORSED PT TO DAY SHIFT NURSE FOR CONTINUITY OF CARE. PT IS STABLE AT THIS TIME. NO DISTRESS NOTED, SLEEPING COMFORTABLY. PLAN OF CARE DISCUSSED.
--- NOTE | 2020-04-01 07:12 | NUR ---
RECEIVED BEDSIDE REPORT FROM MANAGER [employer]IANCE NURSE RAMA. PATIENT LYING DOWN IN BED SLEEPING, AROUSABLE BY VOICE. RESPIRATION EVEN AND UNLABORED ON RA. NO DISTRESS NOTED. FLACC 0. IV ON RFA 18G, SITE INTACT,SALINE LOCKED. SKIN CLEAN AND DRY. PATIENT IS ABLE TO AMBULATORY TO USE THE BATHROOM. TELE MONITOR IN PLACE. SAFETY MEASURES IN PLACE, CALL LIGHT WITHIN REACH.
[2020-04-01 08:00] VITALS: BP 107/66
[2020-04-01] MEDS: FUROSEMIDE 20 MG/2 ML VIAL IVP SCH (10:03)
[2020-04-01] MEDS: levETIRAcetam 500 MG TAB PO SCH ×2 (10:04→20:12)
[2020-04-01] MEDS: PANTOPRAZOLE 40 MG TABEC PO SCH (10:04)
[2020-04-01] MEDS: METOPROLOL 25 MG TAB PO SCH ×2 (10:04→20:13)
[2020-04-01] MEDS: ESCITALOPRAM 20 MG TAB PO SCH (10:05)
[2020-04-01] MEDS: LOSARTAN 25 MG TAB PO SCH (10:05)
[2020-04-01] MEDS: ECOTRIN 81 MG TABEC PO SCH (10:05)
[2020-04-01] MEDS: SPIRONOLACTONE 25 MG TAB PO SCH (10:06)
--- NOTE | 2020-04-01 10:08 | NUR ---
CHECKED BLOOD PRESSURE PRIOR TO MED ADMINISTER, BP 107/63 MAP 85 PULSE 78. MEDS EDUCATION PROVIDED, PATIENT VERBALIZED UNDERSTANDING. PATIENT IS AWAKE AND WATCHING TV ON BED. PLAN OF CARE DISCUSSED, PATIENT WAS AWARE. NO SIGNS OF ACUTE DISTRESS NOTED. TELE MONITOR IN PLACE. SAFETY MEASURES IN PLACE. INSTRUCTED PATIENT TO USE THE CALL LIGHT FOR ANY ASSISTANCE AND PATIENT AWARE.
[2020-04-01] MEDS: HYDROcodone/APAP 7.5/325 MG 1 TAB PO PRN ×2 (11:00→17:06)
[2020-04-01] MEDS: LORazepam 1 MG TAB PO PRN ×2 (11:00→18:38)
--- NOTE | 2020-04-01 11:01 | NUR ---
ATTENDED TO CALL LIGHT, PATIENT COMPLAINED OF 6/10 PAIN ON SHOULDER NON-RADIANT, ACHING AND SHE ALSO COMPLAINED OF FEELING ANXIOUS, BLOOD PRESSURES TAKEN, BP 110/69 PULSE 89, MEDICATED WITH PRN PAIN MED AND ATIVAN, MEDS EDUCATION PROVIDED AND PATIENT VERBALIZED UNDERSTANDING. PATIENT AWAKE AND RESTING ON BED AT THIS TIME. NO OTHER DISTRESS NOTED. TELE MONITOR IN PLACE. SAFETY MEASURES IN PLACE.
[2020-04-01 12:00] VITALS: BP 118/60
--- NOTE | 2020-04-01 13:25 | NUR ---
PATIENT AWAKE AND RESTING ON BED AT THIS TIME. DENIED PAIN, SOB AND DIZZINESS. NO SIGNS OF ACUTE DISTRESS NOTED. TELE MONITOR IN PLACE. SAFETY MEASURES IN PLACE.
--- NOTE | 2020-04-01 15:20 | NUR ---
CARPET INSTALLER HELPER DELIVERED FAMILY'S FLOWER TO PATIENT, PATIENT IS RESTING ON BED AT THIS TIME. NO SIGNS OF DISTRESS NOTED. TELE MONITOR IN PLACE. SAFETY MEASURES IN PLACE.
[2020-04-01 16:00] VITALS: BP 110/59
--- NOTE | 2020-04-01 17:07 | NUR ---
ATTENDED TO CALL LIGHT, PT COMPLAINED 6/10 PAIN ON HER SHOULDER, REPOSITIONED PATIENT, PROVIDED EXTRA PILLOWS TO OFFLOADED PRESSURE, PATIENT STATED, " IT DOESN'T HELP." MEDICATED WITH PRN PAIN MED NORCO, MED EDUCATION PROVIDED, PATIENT VERBALIZED UNDERSTANDING. PATIENT IS AWAKE AND RESTING ON BED AT THIS TIME. NO SIGN OF ACUTE DISTRESS NOTED. TELE MONITOR IN PLACE. SAFETY MEASURES IN PLACE.
--- NOTE | 2020-04-01 18:39 | NUR ---
ATTENDED TO CALL LIGHT, PATIENT COMPLAINED SHE HAS VERY BAD ANXIETY AND STATED, ' I NEED SOMETHING FOR MY ANXIETY AND I CAN TELL YOU IT'S VERY BAD RIGHT NOW." MEDICATED WITH PRN ATIVAN, MED EDUCATION PROVIDED, PATIENT VERBALIZED UNDERSTANDING. PATIENT IS RESTING ON BED WITH TV ON. NO SIGNS OF ACUTE DISTRESS NOTED. TELE MONITOR IN PLACE. SAFETY MEASURES IN PLACE.
--- NOTE | 2020-04-01 19:16 | NUR ---
ENDORSED PATIENT AT BEDSIDE TO LINK TRAINER MAINTENANCE WORKER FOR CONTINUITY OF CARE. PATIENT IS IN STABLE CONDITION.
--- NOTE | 2020-04-01 19:31 | NUR ---
RECEIVED REPORT FROM RICCOFT RN, PT RESTING IN BED ON RM AIR, WITH TELE BOX IN PLACE, PT COMPLAINING OF MILD ANXIETY AND WANTING TO B ABLE TO SLEEP, INFORMED PT WILL CHECK MEDICATION ADN SEE WHAT I CAN DO TO HELP HER RELAX AND SLEEP TONIGHT, LUNG SOUNDS CLEAR, PULSES PALPABLE UPPER AND LOWER EXTREMITIES, IV FLUSHES, S1 AND S2 HEART SOUNDS HEARD. WILL CONTINUE TO MONITOR PT
[2020-04-01 20:00] VITALS: BP 124/68
[2020-04-01] MEDS: ONDANSETRON 4 MG/2 ML VIAL IM/IVP PRN (20:09)
[2020-04-01] MEDS: traZODone 50 MG TAB PO SCH (20:09)
[2020-04-01] MEDS: ATORVASTATIN 20 MG TAB PO SCH (20:13)
[2020-04-02] VITALS: BP 92/64
--- NOTE | 2020-04-02 00:05 | NUR ---
PT RESTING IN BED, VSS CALL LIGHT WITHIN REACH WILL CONTINUE TO MONITOR PT
--- NOTE | 2020-04-02 02:10 | NUR ---
PT ASKING FOR WATER, VSS WILL CONTINUE TO MONITOR PT
[2020-04-02 04:00] VITALS: BP 95/68
[2020-04-02 06:28] LABS: BASOPHILS # (AUTO) 0.1 K/uL (0.00-0.22); BASOPHILS % (AUTO) 1.1 % (0.0-2.0); EOSINOPHILS # (AUTO) 0.1 K/uL (0-0.4); EOSINOPHILS % (AUTO) 1.9 % (0.0-4.0); HEMATOCRIT 35.6 % (36-48); HEMOGLOBIN 11.6 g/dL (12.0-16.0); LYMPHOCYTES # (AUTO) 2.5 K/uL (2.5-16.5); LYMPHOCYTES % (AUTO) 51.3 % (20.5-51.1); MEAN CORPUSCULAR HEMOGLOBIN 29 pg (27-31); MEAN CORPUSCULAR HGB CONC 33 g/dL (33-37); MEAN CORPUSCULAR VOLUME 90.1 fL (80-94); MONOCYTES # (AUTO) 0.9 K/uL (0.8-1.0); MONOCYTES % (AUTO) 17.7 % (1.7-9.3); NEUTROPHILS # (AUTO) 1.4 K/uL (1.8-7.7); PLATELET COUNT (AUTO) 211 K/uL (140-450); RED BLOOD CELL COUNT(AUTO) 3.95 MIL/uL (4.20-5.40); RED CELL DISTRIBUTION WIDTH 14.5 % (11.6-13.7); WHITE BLOOD COUNT (AUTO) 4.9 K/uL (4.8-10.8)
--- NOTE | 2020-04-02 07:25 | NUR ---
RECEIVED PT FROM HAT LINING PASTER NURSE, PT RESTING IN BED, CALL LIGHT W/IN REACH, 2 SAFETY RAILS UP, 18G IV NOTED TO RFA SALINE LOCK, SKIN INTACT, ON ROOM AIR, NO SIGN OF DISTRESS NOTED, WILL CONTINUE TO MONITOR PT
[2020-04-02 07:43] LABS: ANION GAP 7.3 (8-16); CARBON DIOXIDE 27.8 mmol/L (21-32); CREATININE 1.3 mg/dL (0.6-1.3); POTASSIUM 4.1 mmol/L (3.5-5.1)
[2020-04-02 08:00] VITALS: BP 108/78
[2020-04-02] MEDS: METOPROLOL 25 MG TAB PO SCH (09:00)
[2020-04-02] MEDS: LOSARTAN 25 MG TAB PO SCH (09:00)
[2020-04-02] MEDS: FUROSEMIDE 20 MG/2 ML VIAL IVP SCH (09:00)
[2020-04-02] MEDS: SPIRONOLACTONE 25 MG TAB PO SCH (09:00)
[2020-04-02] MEDS: ECOTRIN 81 MG TABEC PO SCH (09:54)
[2020-04-02] MEDS: PANTOPRAZOLE 40 MG TABEC PO SCH (09:55)
[2020-04-02] MEDS: ESCITALOPRAM 20 MG TAB PO SCH (09:55)
[2020-04-02] MEDS: levETIRAcetam 500 MG TAB PO SCH (09:58)
--- NOTE | 2020-04-02 09:58 | NUR ---
PT WAS GIVEN THE SCHEDULED AM MEDICATIONS, BP MEDS AND LASIX WERE NOT GIVEN D/T BP IS 108/78, PULSE IS 77, NO SIGN OF DISTRESS NOTED AND WILL MONITOR PT.
[2020-04-02] MEDS: LORazepam 1 MG TAB PO PRN (10:02)
--- NOTE | 2020-04-02 11:50 | NUR ---
PT C/O GENERALIZED PAIN ON HER BODY AND PAIN MEDICATION WAS GIVEN, WILL RE-ASSESS PAIN AND MONITOR PT.
[2020-04-02] MEDS: HYDROcodone/APAP 7.5/325 MG 1 TAB PO PRN (11:51)
[2020-04-02 12:00] VITALS: BP 117/117
[2020-04-02] MEDS ORDERED: ONDA4TAB PO (12:09)
[2020-04-02] MEDS ORDERED: LORA-476 PO (15:29)
--- NOTE | 2020-04-02 15:30 | NUR ---
DISCHARGED PT TO HOME ACCOMPANIED BY DAUGHTER, DISCHARGED TEACHINGS AND INSTRUCTION GIVEN TO PT AND VERBALIZED UNDERSTANDING, IV LINE, HEART MONITOR AND ARM BAND REMOVED, PT IS STABLE AT THIS TIME.
== END 2020-04-02 15:30 | disposition home or self-care (01) | DRG 281 ==
LOC: MED 00:54 → MTU 03:55 → MERGE 03:55 → MTU 03-31 11:14
PROVIDERS: ADMIT Emergency Medicine; ATTEND Emergency Medicine
DX: I11.0 Hypertensive heart disease with heart failure (principal); I21.A1 Myocardial infarction type 2; E44.1 Mild protein-calorie malnutrition; I50.43 Acute on chronic combined systolic (congestive) and diastolic (congestive) heart failure; E66.9 Obesity, unspecified; D64.9 Anemia, unspecified; F32.9 Major depressive disorder, single episode, unspecified; F41.9 Anxiety disorder, unspecified; G40.909 Epilepsy, unspecified, not intractable, without status epilepticus; M19.90 Unspecified osteoarthritis, unspecified site; Z20.828 Contact with and (suspected) exposure to other viral communicable diseases; F17.210 Nicotine dependence, cigarettes, uncomplicated; K92.9 Disease of digestive system, unspecified; F15.90 Other stimulant use, unspecified, uncomplicated; Z68.30 Body mass index [BMI] 30.0-30.9, adult; Z71.3 Dietary counseling and surveillance; Z86.73 Personal history of transient ischemic attack (TIA), and cerebral infarction without residual deficits; Z91.19 Patient's noncompliance with other medical treatment and regimen; Z88.0 Allergy status to penicillin; Z88.8 Allergy status to other drugs, medicaments and biological substances
CPT/HCPCS: 36415; 71045; 80048; 80053; 80305; 81003; 83036; 83690; 83735; 83880; 84100; 84436; 84439; 84443; 84479; 84484; 85025; 85610; 85730; 87081; 93005; 96374; 96375; 97116; 97161-GP; 99285; J1940; J2270; J2405; Q0092

== ENCOUNTER 2020-05-13 19:38 | Emergency (ER) | payer OTHER, SELFPAY ==
[~2020-05-13] VITALS: Ht 157.5 cm; Wt 72.6 kg
[~2020-05-13 19:38] MED LIST changes: -DOCU-299 PO; +ONDA4TAB PO
[2020-05-13 19:42] VITALS: BP 162/110
--- NOTE | 2020-05-13 19:56 | NUR ---
PT AMBULATED TO BED #5
--- NOTE | 2020-05-13 19:57 | NUR ---
EMT AT BEDSIDE FOR EKG.
--- NOTE | 2020-05-13 19:57 | NUR ---
JEANNE FRITZ AT BEDSIDE FOR EVALUATION
--- NOTE | 2020-05-13 19:57 | NUR ---
59 Y/O FEMALE PRESENTED TO ED C/O CHEST PAIN & CONGESTION X 3 DAYS . PT STATES THE CP 7/10 , TIGHTNESS / SHARPNESS . PT ALSO C/O OF PAIN IN BACK. PT STATES SHE FEELS LIKE HER CHEST IS FULL OF MUCUS. +PRODUCTIVE COUGH. +DIARRHEA X 1 DAY . +SOB , PT CURRENT SAO2 98% ON RM AIR. RR EVEN AND UNLABORED. LUNG SOUNDS BL CLEAR. A/O X 4 . S1 & S2 NOTED. CAP REFIL < 3 SEC . NO EDEMA NOTED. PT RESTING IN BED, LOCKED AND IN LOWEST POSITION ,HOB ELEVATED, SIDE RAIL X1. PT PLACED ON ROLL FORM OPERATOR, PULSE OX AND BP CUFF. ERMD MADE AWARE OF PT STATUS. PMH: CHF, HTN, SEIZURES, CVA ( NO DEFICITS) AX: PCN, LISINOPRIL
[2020-05-13] MEDS ORDERED: ALBUTEROL HFA MDI 90 MCG/ACTUATION 8 GM INH ONE (20:05)
--- NOTE | 2020-05-13 20:12 | NUR ---
LAB AT BEDSIDE
--- NOTE | 2020-05-13 20:16 | NUR ---
FLU & NOVEL COVID SWAB COLLECTED AND HANDED TO INORGANIC CHEMIST.
[2020-05-13 20:31] LABS: BASOPHILS % (AUTO) 0.9 % (0.0-2.0); EOSINOPHILS % (AUTO) 0.1 % (0.0-4.0); HEMATOCRIT 38.9 % (36-48); HEMOGLOBIN 12.7 g/dL (12.0-16.0); LYMPHOCYTES # (AUTO) 1.4 K/uL (2.5-16.5); MEAN CORPUSCULAR HEMOGLOBIN 29 pg (27-31); MEAN CORPUSCULAR HGB CONC 33 g/dL (33-37); MEAN CORPUSCULAR VOLUME 88.7 fL (80-94); MONOCYTES # (AUTO) 0.6 K/uL (0.8-1.0); MONOCYTES % (AUTO) 17.9 % (1.7-9.3); NEUTROPHILS # (AUTO) 1.2 K/uL (1.8-7.7); NEUTROPHILS % (AUTO) 36.1 % (42.2-75.2); PLATELET COUNT (AUTO) 179 K/uL (140-450); RED BLOOD CELL COUNT(AUTO) 4.38 MIL/uL (4.20-5.40); RED CELL DISTRIBUTION WIDTH 14.6 % (11.6-13.7); WHITE BLOOD COUNT (AUTO) 3.2 K/uL (4.8-10.8)
--- NOTE | 2020-05-13 20:37 | NUR ---
PT MER CONTACTED FOR INFORMATION ON PT'S AT HOME MEDICATIONS.
--- NOTE | 2020-05-13 20:39 | NUR ---
SPOKE W/ JAMEE RT FOR BREATHING TX ORDER AT THIS TIME.
[2020-05-13 20:43] LABS: ALBUMIN 3.4 g/dL (3.4-5.0); CARBON DIOXIDE 26.3 mmol/L (21-32); CREATININE 0.9 mg/dL (0.6-1.3); POTASSIUM 3.3 mmol/L (3.5-5.1); TOTAL BILIRUBIN 0.2 mg/dL (0.0-1.0)
[2020-05-13] MEDS ORDERED: ASPIRIN 325 MG TAB PO ONE (20:50)
[2020-05-13] MEDS ORDERED: carvediloL 6.25 MG TAB PO ONE (21:05)
[2020-05-13] MEDS ORDERED: levETIRAcetam 500 MG TAB PO ONE (21:05)
[2020-05-13] MEDS ORDERED: FUROSEMIDE 40 MG TAB PO ONE (21:05)
[2020-05-13] MEDS ORDERED: SPIRONOLACTONE 25 MG TAB PO ONE (21:05)
--- NOTE | 2020-05-13 21:11 | NUR ---
CALLED PACKAGE DRIER FOR SPIRONOLACTONE MEDICATION
--- NOTE | 2020-05-13 21:34 | NUR ---
PT PROVIDED SOCKS AT THIS TIME. PT AMBULATED TO RESTROOM W/ STEADY GAIT.
--- NOTE | 2020-05-13 22:05 | NUR ---
PT C/O OF 7/10 CHEST PAIN & BACK PAIN AT THIS TIME. JEANNE FRITZ MADE AWARE AND WILL ORDER MEDICATION FOR PT.
[2020-05-13] MEDS ORDERED: IBUPROFEN 600 MG TAB PO ONE (23:55)
[2020-05-14 00:03] VITALS: BP 119/84
--- NOTE | 2020-05-14 00:03 | NUR ---
Patient discharged with v/s stable. Written and verbal after care instructions given and explained. Patient alert, oriented and verbalized understanding of instructions. Ambulatory with steady gait. All questions addressed prior to discharge. ID band removed. Patient advised to follow up with PMD. Rx of BENZONATATE given. Patient educated on indication of medication including possible reaction and side effects. Opportunity to ask questions provided and answered.
--- NOTE | 2020-05-14 00:05 | NUR ---
CALLED PT TRA [employer] FOR PT CONTROL TOWER OPERATOR IN LOBBY.
--- NOTE | 2020-05-17 13:55 | NUR ---
Covid results received from lab. Results = POSITIVE. Hard copy requested from lab and placed in infection controls mailbox.
== END 2020-05-14 00:03 | disposition home or self-care (01) ==
LOC: MED 19:38
DX: R07.9 Chest pain, unspecified (principal); R05 Cough; I10 Essential (primary) hypertension; I63.9 Cerebral infarction, unspecified; I51.89 Other ill-defined heart diseases; R56.9 Unspecified convulsions; K21.9 Gastro-esophageal reflux disease without esophagitis; Z88.0 Allergy status to penicillin; Z88.8 Allergy status to other drugs, medicaments and biological substances; Z79.899 Other long term (current) drug therapy; Z20.828 Contact with and (suspected) exposure to other viral communicable diseases
CPT/HCPCS: 36415; 71045; 80053; 84484; 85025; 87804; 93005; 94664; 99285; U0003

== ENCOUNTER 2020-08-05 08:56 | Inpatient (IN) | payer OTHER, SELFPAY ==
[~2020-08-05] VITALS: Ht 157.5 cm; Wt 87.5 kg
[~2020-08-05 08:56] MED LIST changes: -ESCI20TA47 PO; +ESCI20TA49 PO
[2020-08-05 09:06] VITALS: BP 186/121
[2020-08-05] MEDS ORDERED: ASPIRIN 325 MG TAB PO ONE (09:20)
--- NOTE | 2020-08-05 09:39 | NUR ---
59 YEAR OLD FEMALE COMPLAINS OF RIGHT ARM PAIN X 3-4 WEEKS AND SOB X TODAY. PATIENT DENIES TRAUMATIC EVEN LEADING TO RIGHT ARM PAIN; PAIN 10/10, CONTINUOUS, SHARP, LOCAL, TENDERNESS UPON TOUCH YIELDING SCREAM. LIMITED ROM NOTED, NO EDEMA NOTED, SKIN WARM AND DRY, INTACT, APPROPRIATE COLOR AND TEMPERATURE. LUNGS CLEAR THROUGHOUT, BREATHING EVEN AND UNLABORED, SYMMETRICAL CHEST EXPANSION NOTED, SPO2 100% RA, BP 163/104, HR 68. PATIENT DENIES NAUSEA/VOMITING/DIARRHEA, DENIES SWEATING, DENIES HEADACHE. AO4, BED IN LOWEST POSITION, LOCKED, X1 SIDERAIL UP. PMH - CHF, HTN ALLERGIES - PENICILLIN, LISINOPRIL
[2020-08-05] MEDS ORDERED: MORPHINE SULFATE 4 MG/ML SYR IVP ONE ×2 (09:40→10:50)
[2020-08-05 10:18] LABS: BASOPHILS # (AUTO) 0.1 K/uL (0.00-0.22); BASOPHILS % (AUTO) 1.2 % (0.0-2.0); EOSINOPHILS # (AUTO) 0.1 K/uL (0-0.4); HEMATOCRIT 35.8 % (36-48); HEMOGLOBIN 11.8 g/dL (12.0-16.0); LYMPHOCYTES # (AUTO) 2.2 K/uL (2.5-16.5); LYMPHOCYTES % (AUTO) 37.4 % (20.5-51.1); MEAN CORPUSCULAR HEMOGLOBIN 29 pg (27-31); MEAN CORPUSCULAR HGB CONC 33 g/dL (33-37); MEAN CORPUSCULAR VOLUME 88.6 fL (80-94); MONOCYTES # (AUTO) 0.9 K/uL (0.8-1.0); MONOCYTES % (AUTO) 15.5 % (1.7-9.3); NEUTROPHILS # (AUTO) 2.6 K/uL (1.8-7.7); NEUTROPHILS % (AUTO) 44.9 % (42.2-75.2); PLATELET COUNT (AUTO) 218 K/uL (140-450); RED BLOOD CELL COUNT(AUTO) 4.04 MIL/uL (4.20-5.40); RED CELL DISTRIBUTION WIDTH 15.2 % (11.6-13.7); WHITE BLOOD COUNT (AUTO) 5.8 K/uL (4.8-10.8)
[2020-08-05 10:33] LABS: PROTHROMBIN TIME 10.2 secs (10.8-13.4)
[2020-08-05 10:35] LABS: ALBUMIN 3.3 g/dL (3.4-5.0); ANION GAP 8.6 (8-16); CARBON DIOXIDE 28.8 mmol/L (21-32); CREATININE 0.8 mg/dL (0.6-1.3); POTASSIUM 3.4 mmol/L (3.5-5.1); TOTAL BILIRUBIN 0.5 mg/dL (0.0-1.0)
--- NOTE | 2020-08-05 11:05 | NUR ---
BP 189/98. ERMD MADE AWARE. PATIENT ON MONITOR
[2020-08-05] MEDS ORDERED: NITROGLYCERIN 0.4 MG TAB SL ONE (11:10)
--- NOTE | 2020-08-05 11:10 | NUR ---
DIAMOND COVID SWAB OBTAINED AND GIVEN TO LAB.
--- NOTE | 2020-08-05 11:14 | NUR ---
1ST DOSE NITROGLYCERIN ADMINISTERED. BP 174/90, HR 68, PAIN 10/10 PER PATIENT
--- NOTE | 2020-08-05 11:16 | NUR ---
2ND DOSE NITROGLYCERIN ADMINISTERED. BP 179/99, HR 63, PAIN 10/10 PER PATIENT
--- NOTE | 2020-08-05 11:21 | NUR ---
BP AFTER 2ND DOSE NITROGLYCERIN 148/83, HR 63. PATIENT STATES PAIN CHANGED FROM 10/10 TO 8/10. NO FURTHER NITROGLYCERIN ADMINISTERED AT THIS MOMENT. PATIENT ON MONITOR.
--- NOTE | 2020-08-05 11:37 | NUR ---
PATIENT EYES CLOSED, BREATHING EVEN AND UNLABORED, NO APPARENT DISTRESS. PATIENT ON MONITOR.
[2020-08-05] MEDS ORDERED: ZOLPIDEM 5 MG TAB PO PRN (12:10)
[2020-08-05] MEDS ORDERED: POTASSIUM CHLORIDE 10 MEQ TABER PO PRN (12:10)
[2020-08-05] MEDS ORDERED: ONDANSETRON 4 MG/2 ML VIAL IM/IVP PRN (12:10)
[2020-08-05] MEDS ORDERED: guaiFENesin DM 200/20 MG-10 ML 10 ML UDC PO PRN (12:10)
[2020-08-05] MEDS ORDERED: ACETAMINOPHEN 325 MG TAB PO PRN (12:10)
[2020-08-05] MEDS ORDERED: DOCUSATE SODIUM 100 MG GELCAP PO PRN (12:10)
[2020-08-05] MEDS ORDERED: traZODone 50 MG TAB PO PRN (12:15)
--- NOTE | 2020-08-05 12:31 | NUR ---
Patient will be admitted to care of MD MORE. Admited to TELEMETRY. Will go to room 122A. Belongings list completed. Report to AYLIN CHOWDARY.
[2020-08-05 12:57] LABS: CHOL/HDL RATIO 1.2 (1-4.5); FREE T4 (FREE THYROXINE) 0.95 ng/dL (0.76-1.46); MAGNESIUM 1.9 mg/dL (1.8-2.4); PHOSPHORUS 2.6 mg/dL (2.5-4.9); THYROID STIMULATING HORMONE 0.52 uIU/mL (0.34-3.74)
[2020-08-05 13:00] VITALS: BP 154/92
--- NOTE | 2020-08-05 13:00 | NUR ---
PT ARRIVED FROM ER IN [facility]. NO S/S OF DISTRESS WILL CONTINUE TO MONITOR.
[2020-08-05 13:05] LABS: BARBITURATE, URINE NEGATIVE ng/ml (NEG <=200)
[2020-08-05 13:06] LABS: BENZODIAZEPINE, URINE NEGATIVE ng/mL (NEG <=200); CANNABINOID, URINE POSITIVE ng/mL (NEG <=50); COCAINE, URINE POSITIVE ng/mL (NEG <=300); OPIATE, URINE POSITIVE ng/mL (NEG <=2000); PHENCYCLIDINE SCREEN,URINE NEGATIVE ng/mL (NEG <=25)
[2020-08-05 13:12] LABS: APPEARANCE,URINE CLEAR (CLEAR); BILIRUBIN,URINE NEGATIVE (NEGATIVE); BLOOD, URINE 1+ (NEGATIVE); COLOR,URINE YELLOW (YELLOW); LEUKOCYTE ESTERASE ,URINE NEGATIVE (NEGATIVE); NITRITE, URINE NEGATIVE (NEGATIVE); UGLUCOSE NEGATIVE (NEGATIVE)
[2020-08-05 13:30] LABS: WBC,URINE 0-5 /HPF (0-5)
[2020-08-05] MEDS: HYDROcodone/APAP 7.5/325 MG 1 TAB PO PRN ×2 (14:15→22:12)
[2020-08-05] MEDS: NACL 0.9% 1,000 ML IV SCH (14:15)
--- NOTE | 2020-08-05 14:15 | NUR ---
PT COMPLAINED OF MODERATE PAIN IN SHOULDER. PRN NORCO ADMINISTERED PRESCRIBED PER MD ORDER. PT TOLERATED WELL. MEDICATION EDUCATION PERFORMED. PT VERBALIZED UNDERSTANDING. SAFETY MEASURES IN PLACE. WILL CONTINUE TO MONITOR
[2020-08-05] MEDS: LORazepam 2 MG/ML VIAL IVP PRN (17:04)
--- NOTE | 2020-08-05 17:07 | NUR ---
PT PRN MEDICATION GIVEN ORDERED BY MD. EDUCATION WAS PROVIDED. PT VERBALIZED UNDERSTANDING. PT DEMONSTRATED NO S/S OF DISTRESS. CALL LIGHT IS WITHIN REACH, ALL SAFETY MEASURES ARE IN PLACE. WILL CONTINUE TO MONITOR.
--- NOTE | 2020-08-05 17:09 | NUR ---
PT COMPLAINED OF ANXIETY. PRN ATIVAN ADMINISTERED PRESCRIBED PER MD ORDER. PT TOLERATED WELL. MEDICATION EDUCATION PERFORMED. PT VERBALIZED UNDERSTANDING. SAFETY MEASURES IN PLACE. WILL CONTINUE TO MONITOR Addendum: 08/05/20 at 1711 by Sandy Resendiz RN DUPLICATE NOTE. DISREGARD NOTE
[2020-08-05 17:12] VITALS: BP 121/71
--- NOTE | 2020-08-05 18:59 | NUR ---
PT IN BED RESTING. PT DEMONSTRATED NO S/S OF DISTRESS. CALL LIGHT IS WITHIN REACH, ALL SAFETY MEASURES ARE IN PLACE. WILL CONTINUE TO MONITOR.
--- NOTE | 2020-08-05 19:49 | NUR ---
PT REPORT GIVEN TO NIGHT NURSE FOR CONTINUITY OF CARE. PT IS STABLE
--- NOTE | 2020-08-05 19:50 | NUR ---
RECEIVED BEDSIDE REPORT FROM DAY RN EPI AND DOUG. PT AOX4 ON ROOM AIR. NO S/S RESPIRATORY DISTRESS. NO C/O PAIN AT THIS TIME. IV SITE LAC 20G, PATENT INTACT, INFUSING IVF ORDERED. SAFETY MEASURES IN PLACE. CALL LIGHT WITHIN REACH. WILL CONTINUE TO MONITOR
[2020-08-05 20:00] VITALS: BP 137/70
[2020-08-05] MEDS ORDERED: ATORVASTATIN 20 MG TAB PO SCH (21:00)
[2020-08-05] MEDS: levETIRAcetam 500 MG TAB PO SCH (21:04)
[2020-08-05] MEDS: ONDANSETRON 4 MG TAB PO SCH (21:04)
--- NOTE | 2020-08-05 21:06 | NUR ---
SCHEDULED MEDICATIONS GIVEN. EDUCATION PROVIDED. NO DISTRESS NOTED. WILL CONTINUE TO MONITOR
--- NOTE | 2020-08-05 22:15 | NUR ---
PRN NORCO GIVEN FOR PT C/O MODERATE PAIN ON SHOULDER, EDUCATION PROVIDED. TOLERATED WELL. WILL CONTINUE TO MONITOR
[2020-08-06] VITALS: BP 141/75
--- NOTE | 2020-08-06 01:04 | NUR ---
MADE ROUNDS. PT ASLEEP IN BED. RESPIRATIONS EVEN UNLABORED. NO DISTRESS NOTED. SAFETY MEASURES IN PLACE. CALL LIGHT WITHIN REACH. WILL CONTINUE TO MONITOR
--- NOTE | 2020-08-06 03:28 | NUR ---
PROVIDED WARM BLANKETS TO PATIENT. NO DISTRESS NOTED. SAFETY MEASURES IN PLACE. CALL LIGHT WITHIN REACH. WILL CONTINUE TO MONITOR
[2020-08-06] MEDS: HYDROcodone/APAP 7.5/325 MG 1 TAB PO PRN ×2 (03:56→08:28)
[2020-08-06 04:00] VITALS: BP 133/74
[2020-08-06] MEDS: NACL 0.9% 1,000 ML IV SCH (05:31)
[2020-08-06 06:08] LABS: T4 (THYROXINE) 5.2 ug/dL (4.5-12.0)
[2020-08-06 06:29] LABS: BASOPHILS # (AUTO) 0.1 K/uL (0.00-0.22); EOSINOPHILS # (AUTO) 0.1 K/uL (0-0.4); EOSINOPHILS % (AUTO) 1.5 % (0.0-4.0); HEMATOCRIT 34.7 % (36-48); HEMOGLOBIN 11.3 g/dL (12.0-16.0); LYMPHOCYTES # (AUTO) 2.5 K/uL (2.5-16.5); LYMPHOCYTES % (AUTO) 47.1 % (20.5-51.1); MEAN CORPUSCULAR HEMOGLOBIN 30 pg (27-31); MEAN CORPUSCULAR HGB CONC 33 g/dL (33-37); MEAN CORPUSCULAR VOLUME 90.3 fL (80-94); MONOCYTES # (AUTO) 0.8 K/uL (0.8-1.0); MONOCYTES % (AUTO) 14.9 % (1.7-9.3); NEUTROPHILS # (AUTO) 1.9 K/uL (1.8-7.7); NEUTROPHILS % (AUTO) 35.5 % (42.2-75.2); PLATELET COUNT (AUTO) 209 K/uL (140-450); RED BLOOD CELL COUNT(AUTO) 3.84 MIL/uL (4.20-5.40); RED CELL DISTRIBUTION WIDTH 15.5 % (11.6-13.7); WHITE BLOOD COUNT (AUTO) 5.3 K/uL (4.8-10.8)
[2020-08-06 06:55] LABS: ANION GAP 7.9 (8-16); CARBON DIOXIDE 27.9 mmol/L (21-32); CREATININE 0.9 mg/dL (0.6-1.3); POTASSIUM 3.8 mmol/L (3.5-5.1)
--- NOTE | 2020-08-06 07:40 | NUR ---
ENDORSED PT TO DAY RN FOR CONTINUITY OF CARE. PT IS IN STABLE CONDITION
--- NOTE | 2020-08-06 07:42 | NUR ---
RECEIVED PATIENT FROM NIGHT NURSE. PATIENT IN BED AWAKE, ALERT AND ORIENTED X4. RESP EVEN AND UNLABORED ON ROOM AIR. C/O SHOULDER PAIN, WILL MEDICATE APPROPRIATELY. PATIENT AMBULATED TO THE BATHROOM WITH STANDBY ASSIST. LAC 20G INFUSING NS 60ML/HR. SEIZURE PRECAUTION IN PLACE. PLAN OF CARE DISCUSSED, PATIENT VERBALIZED UNDERSTANDING. HOB ELEVATED. CALL LIGHT WITHIN REACH. WILL CONTINUE TO MONITOR.
[2020-08-06 08:00] VITALS: BP 142/94
--- NOTE | 2020-08-06 08:05 | NUR ---
FNS CONSULT RECEIVED ON 08/05/20. CONSULT REASON NOT APPLICABLE DOES NOT MEET CRITERIA PER HOSPITAL POLICY. PT WILL BE SEEN AND ASSESSED ACCORDING TO NUTRITION CARE POLICY. [address]
--- NOTE | 2020-08-06 08:05 | NUR ---
PATIENT HAS BEEN SCREENED AND CATEGORIZED MODERATE NUTRITION RISK. PATIENT WILL BE SEEN WITHIN 3-5 DAYS OF ADMISSION. 08/08/2020-08/10/[address]
[2020-08-06] MEDS: ONDANSETRON 4 MG TAB PO SCH (08:28)
[2020-08-06] MEDS: levETIRAcetam 500 MG TAB PO SCH (08:30)
[2020-08-06] MEDS ORDERED: FUROSEMIDE 40 MG TAB PO SCH (09:00)
[2020-08-06] MEDS ORDERED: LOSARTAN 25 MG TAB PO SCH (09:00)
[2020-08-06] MEDS ORDERED: ASPIRIN 81 MG TAB.CHEW PO SCH (09:00)
[2020-08-06] MEDS ORDERED: carvediloL 6.25 MG TAB PO SCH (09:00)
[2020-08-06] MEDS ORDERED: ESCITALOPRAM 20 MG TAB PO SCH (09:00)
[2020-08-06] MEDS ORDERED: PANTOPRAZOLE 40 MG TABEC PO SCH (09:00)
[2020-08-06] MEDS ORDERED: SPIRONOLACTONE 25 MG TAB PO SCH (09:00)
[2020-08-06] MEDS: LORazepam 2 MG/ML VIAL IVP PRN (09:52)
--- NOTE | 2020-08-06 09:58 | NUR ---
PATIENT IN BED AWAKE AND ALERT. MORNING ROUTINE MEDICATIONS GIVEN. PATIENT TOLERATED WELL. ATIVAN GIVEN FOR C/O FEELING RESTLESS. ENCOURAGED DEEP BREATHING TO HELP COPE. LAC 20G INFUSING NS 60ML/HR. NO EDEMA NOTED TO LOWER EXTREMITIES. PATIENT REQUESTED TO HAVE MEDICATION TO MOVE HER BOWEL. LAST BOWEL WAS COUPLE DAYS AGO. FLUIDS ENCOURAGED. PATIENT ABLE TO AMBULATE WITH STEADY GAIT. CALL LIGHT WITHIN REACH. WILL CONTINUE TO MONITOR.
--- NOTE | 2020-08-06 11:55 | NUR ---
DR CHAPARRO AT BED SIDE SPEAKING TO PATIENT ABOUT HER STATUS. PATIENT BECAME VERY ANGRY AND EMOTIONAL. PATIENT WAS HEARD YELLING AND CRYING. STAFF IMMEDIATELY RESPONDED AND WAS ABLE TO CALM PATIENT. PATIENT STATED SHE DOES NOT WANT TO LEAVE AND DOES NOT FEEL WELL ENOUGH TO LEAVE. PENDING DISCHARGE ORDER FROM DR CHAPARRO. LACTULOSE ORDERED PER PATIENT REQUEST TO MOVE HER BOWEL. WILL CARRY OUT.
[2020-08-06] MEDS ORDERED: LACTULOSE 20 GM/30 ML UDC PO SCH (12:00)
[2020-08-06] MEDS ORDERED: PANT40EC56 PO (12:25)
--- NOTE | 2020-08-06 13:25 | NUR ---
PATIENT IN BED SLEEPING, CHEST NOTED RISING. NO ACUTE S/S DISTRESS. CALL LIGHT WITHIN REACH. WILL CONTINUE TO MONITOR.
[2020-08-06 14:00] VITALS: BP 142/94
--- NOTE | 2020-08-06 15:35 | NUR ---
DR CHAPARRO CAME BACK TO SPEAK TO PATIENT PER PATIENT REQUEST ABOUT HER DISCHARGE. PATIENT AGREED TO STAY CALM AND LISTEN TO DISCHARGE INSTRUCTIONS. WILL CONTINUE TO MONITOR.
--- NOTE | 2020-08-06 16:05 | NUR ---
PT AGITATED, PULLED OUT HER IV AND TOOK OUT THE TELE BOX, STATED HER COACH WIRER IS IN THE FRONT WAITING FOR HER. PT REFUSED TO SIGN HER DISCHARGE PAPER WORKS NOR LISTEN TO ANY DISCHARGE INSTRUCTIONS AND ALSO REFUSED TO TAKE HOME DISCHARGE PAPER. RISKS AND CONSEQUENCES EXPLAINED TO PT, VERBALIZED UNDERSTANDING. PT ESCORTED TO THE FRONT LOBBY, AMBULATORY WITH STEADY GAIT. PT IS DISCHARGE WITH FAMILY IN STABLE STABLE CONDITION.
[2020-08-06 16:31] VITALS: BP 142/94
--- NOTE | 2020-08-06 17:05 | NUR ---
PATIENT MER CAME TO BOARD HANDLER DISCHARGE INSTRUCTION PACKET. PATIENT VERBALIZED UNDERSTANDING.
== END 2020-08-06 16:10 | disposition home or self-care (01) | DRG 391 ==
LOC: MED 08:56 → MTU 11:10
PROVIDERS: ADMIT Family Medicine; ATTEND Family Medicine
DX: K21.9 Gastro-esophageal reflux disease without esophagitis (principal); I50.43 Acute on chronic combined systolic (congestive) and diastolic (congestive) heart failure; E44.1 Mild protein-calorie malnutrition; I24.8 Other forms of acute ischemic heart disease; I11.0 Hypertensive heart disease with heart failure; D64.9 Anemia, unspecified; E87.6 Hypokalemia; Z20.822 Contact with and (suspected) exposure to COVID-19; F17.210 Nicotine dependence, cigarettes, uncomplicated; E66.9 Obesity, unspecified; F32.9 Major depressive disorder, single episode, unspecified; F41.9 Anxiety disorder, unspecified; M19.90 Unspecified osteoarthritis, unspecified site; F14.10 Cocaine abuse, uncomplicated; F12.10 Cannabis abuse, uncomplicated; F11.10 Opioid abuse, uncomplicated; R56.9 Unspecified convulsions; Z56.0 Unemployment, unspecified; Z86.73 Personal history of transient ischemic attack (TIA), and cerebral infarction without residual deficits; Z91.19 Patient's noncompliance with other medical treatment and regimen; Z88.0 Allergy status to penicillin; Z88.8 Allergy status to other drugs, medicaments and biological substances; I25.2 Old myocardial infarction; Z79.899 Other long term (current) drug therapy; Z79.82 Long term (current) use of aspirin; Z68.35 Body mass index [BMI] 35.0-35.9, adult; Z82.3 Family history of stroke
CPT/HCPCS: 36415; 71045; 73030; 80048; 80053; 80305; 81001; 82150; 82550; 83036; 83690; 83735; 83880; 84100; 84436; 84439; 84443; 84479; 84484; 85025; 85379; 85610; 85730; 87081; 93005; 96374; 99285; J2060; J2270; J7030; Q0162

== ENCOUNTER 2021-02-13 16:26 | Inpatient (IN) | payer OTHER, SELFPAY ==
[~2021-02-13] VITALS: Ht 157.5 cm; Wt 77.1 kg
[~2021-02-13 16:26] MED LIST changes: +DOCU-299 PO; +PANT40EC56 PO; -RANI300T10 PO; +[UNRECOGNIZED DRUG - CODE] PO
--- NOTE | 2021-02-13 16:47 | NUR ---
HALLIE CASTRO VIA GURNEY TO BED 09.
--- NOTE | 2021-02-13 16:59 | NUR ---
dr. smith bedside evaluating pt
[2021-02-13] MEDS ORDERED: LORazepam 2 MG/ML VIAL IVP ONE (17:10)
--- NOTE | 2021-02-13 17:13 | NUR ---
60 Y FEMALE BIB C/O HEADACHE, DIZZINESS, DOUBLE VISION WITH CP AND SOB. PT STATES THE CP, DIZZINESS, AND DOUBLE VISION STARTED EARLIER TODAY. CURRENT PAIN 8/10. PT IS ON CARDIAC MONTIOR AND CURRENT NSR. PT DENIES RADIATING PAIN FROM THE CHEST, BUT STATED SHE ALSO FEELS PAIN IN HER LOWER BACK. PT STATED SOB STARTED X1 WEEK AGO. UPON ASSESSMENT LUNG SOUNDS ARE CLEAR BILATERALLY. PT STATED "SHE FEELS LIKE SHE IS HAVING ANOTHER ANXIETY ATTACK." HX CHF, GA AND STROKE (2019), ANXEITY ALLERGIES: PENICILLINS, LISIONOPRIL
[2021-02-13] MEDS ORDERED: LORazepam 1 MG TAB PO ONE (17:20)
--- NOTE | 2021-02-13 17:26 | NUR ---
PT PROVIDED WITH WARM BLANKET
--- NOTE | 2021-02-13 17:34 | NUR ---
XRAY BEDSIDE WITH PT
[2021-02-13 18:09] LABS: BASOPHILS # (AUTO) 0.1 K/uL (0.00-0.22); BASOPHILS % (AUTO) 0.9 % (0.0-2.0); EOSINOPHILS # (AUTO) 0.1 K/uL (0-0.4); EOSINOPHILS % (AUTO) 1.4 % (0.0-4.0); HEMATOCRIT 41.2 % (36-48); HEMOGLOBIN 13.6 g/dL (12.0-16.0); LYMPHOCYTES # (AUTO) 2.2 K/uL (2.5-16.5); LYMPHOCYTES % (AUTO) 38.3 % (20.5-51.1); MEAN CORPUSCULAR HEMOGLOBIN 29 pg (27-31); MEAN CORPUSCULAR HGB CONC 33 g/dL (33-37); MEAN CORPUSCULAR VOLUME 89.1 fL (80-94); MONOCYTES # (AUTO) 0.7 K/uL (0.8-1.0); MONOCYTES % (AUTO) 12.6 % (1.7-9.3); NEUTROPHILS # (AUTO) 2.6 K/uL (1.8-7.7); NEUTROPHILS % (AUTO) 46.8 % (42.2-75.2); PLATELET COUNT (AUTO) 240 K/uL (140-450); RED BLOOD CELL COUNT(AUTO) 4.63 MIL/uL (4.20-5.40); WHITE BLOOD COUNT (AUTO) 5.6 K/uL (4.8-10.8)
--- NOTE | 2021-02-13 18:27 | NUR ---
pt currently resting bedside with eye closed and son bedside. bed in lowest position and siderail x2 up. vital signs stable, but blood pressure elevated. ER MD made aware and stated will order medication. will continue to monitor
[2021-02-13] MEDS ORDERED: CLONIDINE HYDROCHLORIDE 0.1 MG TAB PO ONE (18:40)
[2021-02-13 18:45] LABS: ALBUMIN 3.4 g/dL (3.4-5.0); ANION GAP 10.9 (8-16); CARBON DIOXIDE 27.4 mmol/L (21-32); CREATININE 0.9 mg/dL (0.6-1.3); POTASSIUM 3.3 mmol/L (3.5-5.1); TOTAL BILIRUBIN 0.3 mg/dL (0.0-1.0)
[2021-02-13] MEDS ORDERED: FUROSEMIDE 20 MG/2 ML VIAL IVP ONE (19:05)
--- NOTE | 2021-02-13 19:22 | NUR ---
REPORT RECEIVED FROM AYLIN LAMA FOR CONTINUATION OF PATIENT CARE AT THIS TIME.
--- NOTE | 2021-02-13 19:22 | NUR ---
Pt report given to AYLIN HERNANDEZ. Transfer of care at this time.
--- NOTE | 2021-02-13 20:45 | NUR ---
DIAMOND SAMPLE COLLECTED VIA NARES AND SENT TO LAB.
--- NOTE | 2021-02-13 20:45 | NUR ---
PATIENT LAYING IN BED LOCKED IN LOWEST POSITION W X1 SIDERAIL UP. PATIENT REPORTS SHE FEELS MUCH BETTER THAN WHEN SHE CAME IN. PATIENT REPORTS SLIGHT SOB, SLIGHT CHEST TIGHTNESS 4/10. PATIENT DENIES ANY NAUSEA OR DIZZINESS AT THIS TIME. PATIENT REPORTS SHE IS SLEEPY AND WANTS TO REST AT THIS TIME. PATIENT AOX4, S1S2 PRESENT, CAP REFIL <3 SEC, SKIN WARM AND DRY. LUNG SOUNDS CLEAR THROUGHOUT. BREATHING EVEN AND UNLABORED. PATIENT CONNECTED TO MONITOR W VSS. NAD NOTED, WILL CONTINUE TO MONITOR.
--- NOTE | 2021-02-13 22:00 | NUR ---
PATIENT LAYING IN BED SUPINE W EYES CLOSED, HOB ELEVATED. BED LOCKED IN LOWEST POSITION W X1 SIDERAIL UP. BREATHING EVEN AND UNLABORED. PATIENT CONNECTED TO MONITOR W VSS. NAD NOTED WILL CONTINUE TO MONITOR.
[2021-02-13] MEDS ORDERED: ACETAMINOPHEN 325 MG TAB PO PRN (22:40)
[2021-02-13] MEDS ORDERED: DOCUSATE SODIUM 100 MG GELCAP PO PRN (22:40)
[2021-02-13] MEDS ORDERED: ZOLPIDEM 5 MG TAB PO PRN (22:40)
[2021-02-13] MEDS ORDERED: guaiFENesin DM 200/20 MG-10 ML 10 ML UDC PO PRN (22:40)
[2021-02-13] MEDS ORDERED: ONDANSETRON 4 MG/2 ML VIAL IM/IVP PRN (22:40)
[2021-02-13] MEDS ORDERED: POTASSIUM CHLORIDE 10 MEQ TABER PO PRN (22:40)
[2021-02-13] MEDS ORDERED: hydrALAZINE 20 MG/ML VIAL IVP PRN (22:45)
[2021-02-13] MEDS ORDERED: NITROGLYCERIN 0.4 MG TAB SL PRN (22:45)
[2021-02-13 23:22] LABS: FREE T4 (FREE THYROXINE) 0.86 ng/dL (0.76-1.46); MAGNESIUM 1.9 mg/dL (1.8-2.4); PHOSPHORUS 3.1 mg/dL (2.5-4.9); THYROID STIMULATING HORMONE 0.63 uIU/mL (0.34-3.74)
--- NOTE | 2021-02-13 23:35 | NUR ---
PATIENT REPORTS SHE IS SLEEPY, WILL PROVIDE URINE LATER.
[2021-02-13] MEDS: FUROSEMIDE 40 MG/4 ML VIAL IVP SCH (23:36)
--- NOTE | 2021-02-14 01:00 | NUR ---
PATIENT AMBULATED TO BATHROOM W STEADY GAIT.
--- NOTE | 2021-02-14 02:00 | NUR ---
PATIENT LAYING IN BED L LATERAL POSITION W EYES CLOSED, HOB ELEVATED. BED LOCKED IN LOWEST POSITION W X1 SIDERAIL UP. BREATHING EVEN AND UNLABORED. PATIENT CONNECTED TO MONITOR W VSS. NAD NOTED WILL CONTINUE TO MONITOR.
--- NOTE | 2021-02-14 02:15 | NUR ---
PATIENT REPORTS 6/10 CHEST PAIN. REQUESTING PAIN MEDICATION. VSS. NO SOB.
[2021-02-14 02:21] LABS: APPEARANCE,URINE CLEAR (CLEAR); BILIRUBIN,URINE NEGATIVE (NEGATIVE); BLOOD, URINE TRACE-I (NEGATIVE); COLOR,URINE YELLOW (YELLOW); LEUKOCYTE ESTERASE ,URINE NEGATIVE (NEGATIVE); NITRITE, URINE NEGATIVE (NEGATIVE); PH,URINE 7.5 (5.0-9.0); UGLUCOSE NEGATIVE (NEGATIVE)
[2021-02-14 02:40] LABS: BARBITURATE, URINE NEGATIVE ng/ml (NEG <=200); BENZODIAZEPINE, URINE POSITIVE ng/mL (NEG <=200); CANNABINOID, URINE POSITIVE ng/mL (NEG <=50); COCAINE, URINE NEGATIVE ng/mL (NEG <=300); OPIATE, URINE NEGATIVE ng/mL (NEG <=2000); PHENCYCLIDINE SCREEN,URINE NEGATIVE ng/mL (NEG <=25)
[2021-02-14 02:43] LABS: WBC,URINE 0-5 /HPF (0-5)
[2021-02-14] MEDS ORDERED: LORA10TA19 PO (03:56)
--- NOTE | 2021-02-14 04:38 | NUR ---
PATIENT LAYING IN BED SUPINE POSITION AWAKE HOB ELEVATED. BED LOCKED IN LOWEST POSITION W X1 SIDERAIL UP. BREATHING EVEN AND UNLABORED. PATIENT REPORTS PAIN IMPROVEMENT. DENIES SOB. CONNECTED TO MONITOR W VSS. NAD NOTED WILL CONTINUE TO MONITOR.
[2021-02-14] MEDS: HYDROcodone/APAP 7.5/325 MG 1 TAB PO PRN ×2 (06:14→10:09)
--- NOTE | 2021-02-14 06:22 | NUR ---
PATIENT LAYING IN BED R LATERAL POSITION W EYES CLOSED, HOB ELEVATED. BED LOCKED IN LOWEST POSITION W X1 SIDERAIL UP. BREATHING EVEN AND UNLABORED. PATIENT CONNECTED TO MONITOR W VSS. NAD NOTED WILL CONTINUE TO MONITOR.
--- NOTE | 2021-02-14 07:20 | NUR ---
Pt report given to AYLIN HUDSON AND AYLIN MILES. Transfer of care at this time.
--- NOTE | 2021-02-14 07:21 | NUR ---
REPORT AND TRANSFER OF CARE RECEIVED FROM AYLIN HERNANDEZ.
[2021-02-14 07:57] LABS: BASOPHILS # (AUTO) 0.1 K/uL (0.00-0.22); BASOPHILS % (AUTO) 1.1 % (0.0-2.0); EOSINOPHILS # (AUTO) 0.1 K/uL (0-0.4); EOSINOPHILS % (AUTO) 1.4 % (0.0-4.0); HEMATOCRIT 43.8 % (36-48); HEMOGLOBIN 14.3 g/dL (12.0-16.0); LYMPHOCYTES # (AUTO) 2.2 K/uL (2.5-16.5); LYMPHOCYTES % (AUTO) 44.5 % (20.5-51.1); MEAN CORPUSCULAR HEMOGLOBIN 29 pg (27-31); MEAN CORPUSCULAR HGB CONC 33 g/dL (33-37); MEAN CORPUSCULAR VOLUME 89.5 fL (80-94); MONOCYTES # (AUTO) 0.6 K/uL (0.8-1.0); MONOCYTES % (AUTO) 13.1 % (1.7-9.3); NEUTROPHILS # (AUTO) 1.9 K/uL (1.8-7.7); NEUTROPHILS % (AUTO) 39.9 % (42.2-75.2); PLATELET COUNT (AUTO) 226 K/uL (140-450); RED BLOOD CELL COUNT(AUTO) 4.89 MIL/uL (4.20-5.40); RED CELL DISTRIBUTION WIDTH 14.1 % (11.6-13.7); WHITE BLOOD COUNT (AUTO) 4.8 K/uL (4.8-10.8)
[2021-02-14 08:00] LABS: ANION GAP 11.4 (8-16); CARBON DIOXIDE 27.7 mmol/L (21-32); CREATININE 0.9 mg/dL (0.6-1.3); POTASSIUM 3.1 mmol/L (3.5-5.1)
--- NOTE | 2021-02-14 08:30 | NUR ---
Patient laying in high-fowlers position with both eyes closed. Cardiac montior in place. VSS; respirations even/unlabored. Bed locked in lowest position, side rails x 2, call light in reach.
--- NOTE | 2021-02-14 09:01 | NUR ---
PATIENT HAS BEEN SCREENED AND CATEGORIZED MODERATE NUTRITION RISK. PATIENT WILL BE SEEN WITHIN 3-5 DAYS OF ADMISSION. 02/16/21 02/18/[address]
--- NOTE | 2021-02-14 09:05 | NUR ---
BREAKFAST MEAL TRAY AT BEDSIDE. PATIENT COMPLETING MEAL AT THIS TIME.
[2021-02-14] MEDS: SPIRONOLACTONE 25 MG TAB PO SCH (09:13)
[2021-02-14] MEDS: ASPIRIN 81 MG TAB.CHEW PO SCH (09:13)
[2021-02-14] MEDS: FUROSEMIDE 40 MG/4 ML VIAL IVP SCH ×2 (09:13→17:00)
[2021-02-14] MEDS: carvediloL 6.25 MG TAB PO SCH (09:14)
[2021-02-14] MEDS: LOSARTAN 25 MG TAB PO SCH (09:14)
[2021-02-14] MEDS: FUROSEMIDE 40 MG TAB PO SCH (09:15)
[2021-02-14] MEDS: levETIRAcetam 500 MG TAB PO SCH ×2 (09:15→20:51)
[2021-02-14] MEDS: ESCITALOPRAM 20 MG TAB PO SCH (09:15)
[2021-02-14] MEDS: PANTOPRAZOLE 40 MG TABEC PO SCH (09:16)
--- NOTE | 2021-02-14 09:20 | NUR ---
PT COMPLETED 80% OF MEAL. ALL NEEDS MET. CASKET TRIMMER REMAINS IN PLACE. VSS; RESPIRATIONS EVEN/UNLABORED. BED LOCKED IN LOWEST POSITION, SIDE RAILS X 2, CALL LIGHT IN REACH.
--- NOTE | 2021-02-14 10:00 | NUR ---
PATIENT AMBULATED TO BATHROOM, STEADY GAIT.
--- NOTE | 2021-02-14 10:06 | NUR ---
PT AMBULATED BACK TO BED 9, STEADY GAIT.
--- NOTE | 2021-02-14 10:35 | NUR ---
Patient resting comfortably with both eyes closed. RR even/unlabored. All pt needs met at this time. radiation monitor in place. Bed locked in lowest position, side rails x 2, call light in reach.
--- NOTE | 2021-02-14 11:04 | NUR ---
PATIENT IN BED RESTING AT THIS TIME, RR EVEN AND UNLABORED, VSS.
--- NOTE | 2021-02-14 12:02 | NUR ---
PT HAS BEEN PROVIDED WITH LUNCH TRAY BEDSIDE AND ICE WATER
--- NOTE | 2021-02-14 12:28 | NUR ---
[place] [id number] [phone]
--- NOTE | 2021-02-14 13:30 | NUR ---
PATIENT LAYING ON LEFT SIDE IN SEMI-FOWLERS POSITION WITH BOTH EYES CLOSED. QUALITY AUDIT REPRESENTATIVE REMAINS IN PLACE. VSS; RESPIRATIONS @ 15 EVEN/UNLABORED. HR 86, SPO2 97% ON ROOM AIR, BED LOCKED IN LOWEST POSITION, SIDE RAILS X 2 FOR PT SAFETY, CALL LIGHT IN REACH.
--- NOTE | 2021-02-14 14:36 | NUR ---
DAUGHTER JOE MUNROE [phone]
--- NOTE | 2021-02-14 16:04 | NUR ---
ATTEMPTED TO CALL FAMILY FOR UPDATE, NO ANSWER.
--- NOTE | 2021-02-14 16:15 | NUR ---
DR. STEVENSON IS EVALUATING PATIENT AT BEDSIDE
--- NOTE | 2021-02-14 16:22 | NUR ---
Kirit ford in [facility] - 02/14/21 at 1622 by ASHLEY AB Stack
--- NOTE | 2021-02-14 16:41 | NUR ---
REPORT GIVEN TO AYLIN BEE.
--- NOTE | 2021-02-14 16:41 | NUR ---
RECEIVED REPORT FOR PT FROM ER NURSE FOR CONTINUITY OF CARE. AWAITING PT ARRIVAL ONTO UNIT.
--- NOTE | 2021-02-14 17:00 | NUR ---
Patient will be admitted to care of DR. AGUERO. Admited to TELEMETRY. Will go to room 110B. Belongings list completed. Report to AYLIN BEE.
--- NOTE | 2021-02-14 17:25 | NUR ---
PT ARRIVED TO UNIT VIA GURNEY FROM ER NURSE. PT CONDITION IS STABLE. AA&OX4 AND AMBULATORY, GAIT IS STEADY. PT IS ON RA BREATHING NORMAL AND UNLABORED. PT DENIES PAIN OR DISCOMFORT UPON ARRIVAL. PT HAS PATENT, INTACT 20G IV IN L-WRIST ON SALINE LOCK. SKIN IS WARM, DRY, AND INTACT. WILL CONTINUE TO ASSESS PT CONDITION.
--- NOTE | 2021-02-14 18:38 | NUR ---
PT CONDITION IS STABLE. PT IS CURRENTLY EATING WITH NO SIGNS OF DISTRESS OR PAIN. WILL CONTINUE TO MONITOR.
--- NOTE | 2021-02-14 19:29 | NUR ---
GAVE CHANGE OF SHIFT REPORT TO NIGHT NURSE AT BEDSIDE FOR CONTINUITY OF CARE. POC DISCUSSED. PT CONDITION IS STABLE.
--- NOTE | 2021-02-14 19:30 | NUR ---
RECEIVED PATIENT FROM AM NURSE FOR CONTINUITY OF CARE. PATIENT IS A/A/O X4, RESTING IN BED. RESPIRATORY EVEN AND UNLABORED, ON ROOM AIR. NO SIGN OF DISTRESS NOTED. SKIN WARM, DRY, NON DIAPHORETIC. IV ON LEFT WRIST 20G, INTACT AND PATENT, SALINE LOCK. PATIENT DENIES ANY PAIN OR DISCOMFORT. ABLE TO MAKE NEED KNOWN. PLAN OF CARE DISCUSSED, PATIENT VERBALIZED UNDERSTANDING. PRECAUTION IN PLACE. CALL LIGHT WITHIN REACH. WILL CONTINUE TO MONITOR.
[2021-02-14 20:00] VITALS: BP 139/95
[2021-02-14] MEDS ORDERED: ATORVASTATIN 20 MG TAB PO SCH (21:00)
--- NOTE | 2021-02-14 21:51 | NUR ---
SCHEDULE MEDICATIONS GIVEN WITH EDUCATION, PATIENT VERBALIZED UNDERSTANDING. PATIENT ALSO COMPLAINS OF UNABLE TO SLEEP, AMBIEN PRN GIVEN ORDER WITH EDUCATION, PATIENT VERBALIZED UNDERSTANDING. PATIENT TOLERATED WELL. NO SIGN OF DISTRESS NOTED. PRECAUTION IN PLACE. CALL LIGHT WITHIN REACH. WILL CONTINUE TO MONITOR.
[2021-02-15] VITALS: BP 134/75
--- NOTE | 2021-02-15 | NUR ---
VITAL SIGNS WITHIN NORMAL LIMIT. PATIENT IS SLEEPING, CHEST RISE AND FALL NOTED, NO SIGN OF RESPIRATORY DISTRESS NOTED. PRECAUTION IN PLACE. CALL LIGHT WITHIN REACH. WILL CONTINUE TO MONITOR.
--- NOTE | 2021-02-15 02:00 | NUR ---
PATIENT IS SLEEPING, CHEST RISE AND FALL NOTED. NO SIGN OF DISTRESS NOTED. PRECAUTION IN PLACE. CALL LIGHT WITHIN REACH. WILL CONTINUE TO MONITOR.
--- NOTE | 2021-02-15 03:30 | NUR ---
PATIENT PULLED HER IV OUT. BLEEDING CONTROL. IV CATHETER INTACT. WILL INSERT NEW IV FOR PATIENT. Addendum: 02/15/21 at 0550 by Dion Weems RN RN CHART ON WRONG PATIENT.
[2021-02-15 04:00] VITALS: BP 145/107
--- NOTE | 2021-02-15 06:30 | NUR ---
RECHECK BP 156/84, HR 77. PATIENT IS NO SIGN OF DISTRESS. PATIENT COMPLAINS OF HIGH ANXIETY. WILL NOTIFY
--- NOTE | 2021-02-15 06:37 | NUR ---
TEXTED DR AGUERO REGARDING PATIENT HIGH ANXIETY AND BEING ANXIOUS. TORB XANAX 0.5MG PO TID PRN FOR ANXIETY, WILL FOLLOW ORDER.
[2021-02-15] MEDS ORDERED: ALPRAZolam 0.5 MG TAB PO PRN (06:50)
[2021-02-15 07:36] LABS: BASOPHILS # (AUTO) 0.1 K/uL (0.00-0.22); BASOPHILS % (AUTO) 0.8 % (0.0-2.0); EOSINOPHILS # (AUTO) 0.1 K/uL (0-0.4); EOSINOPHILS % (AUTO) 1.5 % (0.0-4.0); HEMATOCRIT 44.6 % (36-48); HEMOGLOBIN 14.7 g/dL (12.0-16.0); LYMPHOCYTES % (AUTO) 49.9 % (20.5-51.1); MEAN CORPUSCULAR HEMOGLOBIN 30 pg (27-31); MEAN CORPUSCULAR HGB CONC 33 g/dL (33-37); MEAN CORPUSCULAR VOLUME 89.5 fL (80-94); MONOCYTES # (AUTO) 0.8 K/uL (0.8-1.0); NEUTROPHILS # (AUTO) 2.1 K/uL (1.8-7.7); NEUTROPHILS % (AUTO) 34.8 % (42.2-75.2); PLATELET COUNT (AUTO) 254 K/uL (140-450); RED BLOOD CELL COUNT(AUTO) 4.98 MIL/uL (4.20-5.40); RED CELL DISTRIBUTION WIDTH 13.6 % (11.6-13.7)
--- NOTE | 2021-02-15 07:41 | NUR ---
ENDORSED PATIENT TO AM NURSE FOR CONTINUITY OF CARE. PATIENT IS STABLE.
[2021-02-15 07:46] LABS: ANION GAP 13.3 (8-16); CARBON DIOXIDE 25.3 mmol/L (21-32); POTASSIUM 3.6 mmol/L (3.5-5.1)
[2021-02-15 08:00] VITALS: BP 138/60
--- NOTE | 2021-02-15 08:00 | NUR ---
RECEIVED REPORT FROM OFFICE SUPPORT CLERK FOR CONTINUITY OF CARE. PATIENT ALERT AWAKE ORIENTED X4. WITH HEPLOCK ON THE LEFT HAND DRY AND INTACT. ON HEART MONITOR SHOWS SR WITH INVERTED T WAVE. DENIES CHEST PAIN. C/O BACK PAIN / AND PATIENT VERBALIZED THAT SHE DIDN'T SLEEP WELL. NEEDS ATTENDED. WILL CONTINUE TO MONITOR.
[2021-02-15] MEDS: carvediloL 6.25 MG TAB PO SCH (08:54)
[2021-02-15] MEDS: levETIRAcetam 500 MG TAB PO SCH (08:54)
[2021-02-15] MEDS: FUROSEMIDE 40 MG TAB PO SCH (08:55)
[2021-02-15] MEDS: ESCITALOPRAM 20 MG TAB PO SCH (08:55)
[2021-02-15] MEDS: SPIRONOLACTONE 25 MG TAB PO SCH (08:55)
[2021-02-15] MEDS: LOSARTAN 25 MG TAB PO SCH (08:56)
[2021-02-15] MEDS: PANTOPRAZOLE 40 MG TABEC PO SCH (08:56)
[2021-02-15] MEDS: ASPIRIN 81 MG TAB.CHEW PO SCH (08:56)
[2021-02-15] MEDS: FUROSEMIDE 40 MG/4 ML VIAL IVP SCH (08:57)
--- NOTE | 2021-02-15 09:45 | NUR ---
SEEN BY DR. AGUERO AND DISCUSSED PLAN OF CARE. WILL CONTINUE TO MONITOR.
[2021-02-15 12:00] VITALS: BP 113/84
[2021-02-15 16:00] VITALS: BP 145/107
--- NOTE | 2021-02-15 16:05 | NUR ---
PATIENT DC TO HOME VIA WHEELCHAIR WITH DC INSTRUCTION GIVEN AND VERBALIZED UNDERSTANDING. PATIENT IN STABLE CONDITION.
== END 2021-02-15 16:16 | disposition home or self-care (01) | DRG 291 ==
LOC: MED 16:26 → MTU 21:44
PROVIDERS: ADMIT Family Medicine; ATTEND Family Medicine
DX: I11.0 Hypertensive heart disease with heart failure (principal); G92 Toxic encephalopathy; I50.43 Acute on chronic combined systolic (congestive) and diastolic (congestive) heart failure; E78.5 Hyperlipidemia, unspecified; E87.6 Hypokalemia; F15.10 Other stimulant abuse, uncomplicated; F17.210 Nicotine dependence, cigarettes, uncomplicated; K21.9 Gastro-esophageal reflux disease without esophagitis; R77.8 Other specified abnormalities of plasma proteins; I42.9 Cardiomyopathy, unspecified; Z20.822 Contact with and (suspected) exposure to COVID-19; F41.9 Anxiety disorder, unspecified; Z56.0 Unemployment, unspecified; Z88.0 Allergy status to penicillin; Z88.8 Allergy status to other drugs, medicaments and biological substances; Z79.82 Long term (current) use of aspirin; Z79.899 Other long term (current) drug therapy; Z86.73 Personal history of transient ischemic attack (TIA), and cerebral infarction without residual deficits; Z82.3 Family history of stroke; Z98.891 History of uterine scar from previous surgery; Z82.49 Family history of ischemic heart disease and other diseases of the circulatory system; I25.2 Old myocardial infarction
CPT/HCPCS: 36415; 71045; 80048; 80053; 80305; 81001; 82150; 83036; 83690; 83735; 83880; 84100; 84436; 84439; 84443; 84479; 84484; 85025; 85610; 85730; 87081; 93005; 96374; 99291; J0360; J1644; J1940; J2060

== ENCOUNTER 2021-03-10 20:38 | Emergency (ER) | payer OTHER, SELFPAY ==
[~2021-03-10] VITALS: Ht 157.5 cm; Wt 80.7 kg
[~2021-03-10 20:38] MED LIST changes: +LORA10TA19 PO
[2021-03-10 20:40] VITALS: BP 154/105
--- NOTE | 2021-03-10 20:50 | NUR ---
BIBA WITH C/O ANXIETY AND SOB. AUDIBLE WHEEZING NOTE. IS AWAKE AND ALERT, SKIN IS WARM AND DRY
--- NOTE | 2021-03-10 20:53 | NUR ---
PT BROUGHT TO BED 12 VIA [facility]
[2021-03-10] MEDS ORDERED: ALBUTEROL 2 MG/5 ML ORASYR PO ONE (21:05)
[2021-03-10] MEDS: IPRATROPIUM 0.02% 0.5 MG/2.5 ML NEBU INH ONE (21:14)
[2021-03-10] MEDS: ALBUTEROL 0.083% 2.5 MG/3 ML NEBU INH ONE (21:14)
[2021-03-10] MEDS: HYDROXYZINE HYDROCHLORIDE 25 MG TAB PO STA (21:38)
[2021-03-10] MEDS ORDERED: CARV6.25 PO (22:00)
[2021-03-10] MEDS ORDERED: SPIR25TA PO (22:00)
[2021-03-10] MEDS ORDERED: LOSA25TA43 PO (22:00)
[2021-03-10 22:15] VITALS: BP 154/105
--- NOTE | 2021-03-10 22:15 | NUR ---
Patient discharged with v/s stable. Written and verbal after care instructions given and explained. Patient alert, oriented and verbalized understanding of instructions. Ambulatory with steady gait. All questions addressed prior to discharge. ID band removed. Patient advised to follow up with PMD. Rx of COREG, LOSARTAN, ALDACTONE given. Patient educated on indication of medication including possible reaction and side effects. Opportunity to ask questions provided and answered.
== END 2021-03-10 22:15 | disposition home or self-care (01) ==
LOC: MED 20:38
DX: J44.1 Chronic obstructive pulmonary disease with (acute) exacerbation (principal); F15.90 Other stimulant use, unspecified, uncomplicated; I11.0 Hypertensive heart disease with heart failure; I50.9 Heart failure, unspecified; F41.9 Anxiety disorder, unspecified; I25.2 Old myocardial infarction
CPT/HCPCS: 71045; 94640; 99283; J7613; J7644; Q0092

== ENCOUNTER 2021-05-08 06:23 | Inpatient (IN) | payer OTHER, SELFPAY ==
[~2021-05-08] VITALS: Ht 157.5 cm; Wt 78.9 kg
[2021-05-08 06:23] VITALS: BP 159/100
--- NOTE | 2021-05-08 06:23 | NUR ---
HALLIE CASTRO VIA GURNEY TO BED 01.
[2021-05-08] MEDS ORDERED: FUROSEMIDE 100 MG/10 ML VIAL IVP ONE (06:30)
[2021-05-08] MEDS ORDERED: ALBUTEROL SULFATE/IPRATROPIU 3 ML SOL IH ONE (06:35)
[2021-05-08] MEDS ORDERED: ASPIRIN 325 MG TAB PO ONE (06:35)
--- NOTE | 2021-05-08 06:45 | NUR ---
PT CAME IN BY AMBULANCE DUE TO SOB X1 HOUR. PT CAME FROM HOME, SHE WAS PLACED ON 6 LITERS N/C. PT HX OF MO, CHF AND COPD. LUNG SOUNDS NOTED DIMINSHED WITH RHALES. PT BROUGHT TO ROOM 1 AND PLACED ON TELE MONITOR.
[2021-05-08 07:10] LABS: ALBUMIN 3.4 g/dL (3.4-5.0); ANION GAP 15.8 (8-16); CARBON DIOXIDE 27.1 mmol/L (21-32); CREATININE 1.2 mg/dL (0.6-1.3); POTASSIUM 3.9 mmol/L (3.5-5.1); TOTAL BILIRUBIN 0.3 mg/dL (0.0-1.0)
--- NOTE | 2021-05-08 07:14 | NUR ---
20G ON LEFT AC ESTABLISHED AND LABS DRAWN. CXR DONE AT BEDSIDE WELL EKG. WILL ENDORSE TO AM CREW TO TAKE A DIAMOND COVID TEST AND CONTINUE WITH CARE. PT IN BED SITTING UP AT 90% ON 6 LITERS VIA N/C. BED LOW SIDE RAILS UP.
[2021-05-08] MEDS ORDERED: methylPREDNISolone SS 125 MG in WATER STERILE 2 ML IV ONE (07:15)
[2021-05-08] MEDS ORDERED: WATER STERILE 10 ML MC ONE (07:22)
[2021-05-08] MEDS ORDERED: methylPREDNISolone SS 125 MG/2 ML VIAL ONE (07:23)
--- NOTE | 2021-05-08 07:30 | NUR ---
RECEIVED PT IN [facility] AOX4. DENIES PAIN OR DISCOMFORT, TITRATED 02 DOWN TO 3L NC SATURATION 97%, PT TACHYPNEIC AND SOB WITH MOVEMENT. IV NOTED TO LEFT AC #20GUAGE SL. PUREWICK PLACED. NAD. SAFETY MAINTAINED.
--- NOTE | 2021-05-08 09:53 | NUR ---
PT RESTING IN RNEW [place] NO CHANGES NOTED. SAFETY MAINTAINED.
[2021-05-08] MEDS ORDERED: ZOLPIDEM 5 MG TAB PO PRN (10:35)
[2021-05-08] MEDS ORDERED: DOCUSATE SODIUM 100 MG GELCAP PO PRN (10:35)
[2021-05-08] MEDS ORDERED: ACETAMINOPHEN 325 MG TAB PO PRN (10:35)
[2021-05-08] MEDS ORDERED: ONDANSETRON 4 MG/2 ML VIAL IM/IVP PRN (10:35)
[2021-05-08] MEDS ORDERED: POTASSIUM CHLORIDE 10 MEQ TABER PO PRN (10:40)
[2021-05-08] MEDS ORDERED: MAG SULF 2000 MG/WATER PREMIX 50 ML IV PRN (10:40)
[2021-05-08] MEDS: ENOXAPARIN 80 MG/0.8 ML SYR SUBQ SCH ×2 (10:49→21:00)
--- NOTE | 2021-05-08 10:56 | NUR ---
REPORT GIVEN TO EDA VIERA FOR CONTINUATION OF CARE.
[2021-05-08 11:18] LABS: MAGNESIUM 2.1 mg/dL (1.8-2.4); PHOSPHORUS 4.5 mg/dL (2.5-4.9); THYROID STIMULATING HORMONE 1.35 uIU/mL (0.34-3.74)
--- NOTE | 2021-05-08 11:30 | NUR ---
ARRIVED ON UNIT FROM ER. PT IS BREATHING EVEN AND UNLABORED. VS ARE WNL. PT IS STABLE. IV IS A 20G ON LEFT AC. PT IS ON 3L OF 02 NC.
[2021-05-08 11:43] LABS: PROTHROMBIN TIME 9.8 secs (10.8-13.4)
--- NOTE | 2021-05-08 12:30 | NUR ---
LAB CALLED ABOUT CRITICAL VALUE OF TROPONIN AT 0.759, SENT MESSAGE TO
[2021-05-08] MEDS: methylPREDNISolone SS 125 MG/2 ML VIAL IVP SCH ×2 (13:10→21:00)
[2021-05-08 16:00] VITALS: BP 132/90
--- NOTE | 2021-05-08 19:29 | NUR ---
ENDORSED PT TO SPECIFICATION MANAGER NURSE FOR CONTINUITY OF CARE.
[2021-05-08 20:00] VITALS: BP 130/85
[2021-05-08] MEDS ORDERED: LOVENOX 1MG/KG Q12H SUBQ SCH (21:00)
[2021-05-08] MEDS: MORPHINE SULFATE 2 MG/ML SYR IVP PRN (22:35)
[2021-05-09] VITALS: BP 128/84
--- NOTE | 2021-05-09 02:24 | NUR ---
PATIENT AWAKE ALERT C/O OF PAIN GENERALIZE PAIN PAIN SCALE 6 MEDICATED WITH MORPHINE 1 MG IVP 2235. TEMP 97.8 LUNGS DIMINISH ON MONITOR SINUS HEART RATE 86 PATIENT HAS A HL. ONLY NO IVF. HAS 20 GA IN LEFT F.A. PATIENT ON 02 2 LITERS NASAL .NO SIGNS OF RESP. DISTRESS..
[2021-05-09 04:00] VITALS: BP 127/82
[2021-05-09] MEDS: methylPREDNISolone SS 125 MG/2 ML VIAL IVP SCH (05:00)
[2021-05-09] MEDS: HYDROcodone/APAP 5/325 MG 1 TAB TAB PO PRN (05:52)
[2021-05-09 07:01] LABS: ANION GAP 14.1 (8-16); CARBON DIOXIDE 26.7 mmol/L (21-32); CREATININE 1.1 mg/dL (0.6-1.3); POTASSIUM 3.8 mmol/L (3.5-5.1)
[2021-05-09 07:04] LABS: BASOPHILS % (AUTO) 0.2 % (0.0-2.0); HEMATOCRIT 39.1 % (36-48); HEMOGLOBIN 12.8 g/dL (12.0-16.0); LYMPHOCYTES # (AUTO) 0.8 K/uL (2.5-16.5); LYMPHOCYTES % (AUTO) 10.5 % (20.5-51.1); MEAN CORPUSCULAR HEMOGLOBIN 29 pg (27-31); MEAN CORPUSCULAR HGB CONC 33 g/dL (33-37); MEAN CORPUSCULAR VOLUME 88.2 fL (80-94); MONOCYTES # (AUTO) 0.4 K/uL (0.8-1.0); MONOCYTES % (AUTO) 4.6 % (1.7-9.3); NEUTROPHILS # (AUTO) 6.4 K/uL (1.8-7.7); NEUTROPHILS % (AUTO) 84.7 % (42.2-75.2); PLATELET COUNT (AUTO) 227 K/uL (140-450); RED BLOOD CELL COUNT(AUTO) 4.43 MIL/uL (4.20-5.40); RED CELL DISTRIBUTION WIDTH 15.8 % (11.6-13.7); WHITE BLOOD COUNT (AUTO) 7.6 K/uL (4.8-10.8)
[2021-05-09 07:06] LABS: CHOL/HDL RATIO 1.7 (1-4.5)
[2021-05-09 07:21] LABS: MAGNESIUM 2.1 mg/dL (1.8-2.4); PHOSPHORUS 3.2 mg/dL (2.5-4.9)
--- NOTE | 2021-05-09 07:51 | NUR ---
RECEIVED REPORT FROM STOCK COUNTER FOR CONTINUITY OF CARE. PATIENT ALERT AWAKE ORIENTED X4, NOT IN ANY DISTRESS NOTED. INITIAL ASSESSMENT INITIATED. NO SOB NOTED. BED IN LOW POSITION. WITH HEPLOCK ON THE LEFT AC GAUGE 20 , DRY AND INTACT. C/O PAIN AND ASKING FOR IV MEDICATION. SEEN BY DR. STEVENSON AND DISCUSSED THE PLAN OF CARE. WILL CONTINUE TO MONITOR.
[2021-05-09 08:00] VITALS: BP 109/65
--- NOTE | 2021-05-09 08:36 | NUR ---
PATIENT HAS BEEN SCREENED AND CATEGORIZED MODERATE NUTRITION RISK. PATIENT WILL BE SEEN WITHIN 3-5 DAYS OF ADMISSION. 05/09/21 05/12/[address]
[2021-05-09] MEDS: FUROSEMIDE 40 MG/4 ML VIAL IVP SCH ×2 (08:52→20:42)
[2021-05-09] MEDS: ENOXAPARIN 80 MG/0.8 ML SYR SUBQ SCH ×2 (08:59→20:43)
[2021-05-09] MEDS ORDERED: FUROSEMIDE 40 MG/4 ML VIAL IVP SCH (09:00)
[2021-05-09] MEDS: MORPHINE SULFATE 2 MG/ML SYR IVP PRN (09:00)
[2021-05-09] MEDS ORDERED: traZODone 50 MG TAB PO PRN (10:30)
--- NOTE | 2021-05-09 11:00 | NUR ---
PATIENT ASLEEP, NOT IN ANY DISTRESS NOTED. WILL CONTINUE TO MONITOR.
[2021-05-09 12:00] VITALS: BP 105/53
[2021-05-09] MEDS: methylPREDNISolone SS 40 MG/ML VIAL IVP SCH ×2 (12:42→20:41)
[2021-05-09 16:00] VITALS: BP 113/62
[2021-05-09] MEDS: LORazepam 2 MG/ML VIAL IM/IVP PRN (18:07)
--- NOTE | 2021-05-09 18:15 | NUR ---
PATIENT FEELING ANXIOUS, ATIVAN GIVEN ORDERED. WILL CONTINUE TO MONITOR.
--- NOTE | 2021-05-09 19:18 | NUR ---
REPORT GIVEN TO THE MAGNETIC TESTING TECHNICIAN FOR CONTINUITY OF CARE. PATIENT IN STABLE CONDITION.
[2021-05-09 20:00] VITALS: BP 119/70
[2021-05-09] MEDS: levETIRAcetam 500 MG TAB PO SCH (20:41)
[2021-05-09] MEDS: ATORVASTATIN 20 MG TAB PO SCH (20:42)
[2021-05-10 00:01] VITALS: BP 124/69
--- NOTE | 2021-05-10 00:26 | NUR ---
the pateint vitals are stable. the pateint sleeps comfrtable in her bed. education regarding the disease process was provided. breathing is even and unlabored. comfort and safety measures are provided
[2021-05-10 04:00] VITALS: BP 131/73
[2021-05-10] MEDS: methylPREDNISolone SS 40 MG/ML VIAL IVP SCH (04:58)
[2021-05-10 07:09] LABS: BASOPHILS % (AUTO) 0.4 % (0.0-2.0); HEMATOCRIT 37.3 % (36-48); HEMOGLOBIN 12.3 g/dL (12.0-16.0); LYMPHOCYTES # (AUTO) 1.2 K/uL (2.5-16.5); LYMPHOCYTES % (AUTO) 10.1 % (20.5-51.1); MEAN CORPUSCULAR HEMOGLOBIN 29 pg (27-31); MEAN CORPUSCULAR HGB CONC 33 g/dL (33-37); MEAN CORPUSCULAR VOLUME 87.5 fL (80-94); MONOCYTES # (AUTO) 1.4 K/uL (0.8-1.0); MONOCYTES % (AUTO) 11.7 % (1.7-9.3); NEUTROPHILS # (AUTO) 9.4 K/uL (1.8-7.7); NEUTROPHILS % (AUTO) 77.8 % (42.2-75.2); PLATELET COUNT (AUTO) 215 K/uL (140-450); RED BLOOD CELL COUNT(AUTO) 4.26 MIL/uL (4.20-5.40); RED CELL DISTRIBUTION WIDTH 15.7 % (11.6-13.7); WHITE BLOOD COUNT (AUTO) 12.1 K/uL (4.8-10.8)
--- NOTE | 2021-05-10 07:10 | NUR ---
RECEIVED PATIENT FROM CARDIOLOGY NURSE NURSE FOR CONTINUITY OF CARE. PATIENT IS ON TELE MONITOR. A/A/O X4. RESPIRATORY EVEN AND UNLABORED, ON 2L OXYGEN BY NC. NO SIGN OF DISTRESS NOTED. SKIN WARM, DRY, NON DIAPHORETIC. IV ON LEFT AC 20G, INTACT AND PATENT, IS INFUSING FLUID ORDER. DENIES ANY PAIN OR DISCOMFORT. ABLE TO MAKE NEED KNOWN. PLAN OF CARE DISCUSSED, PATIENT VERBALIZED UNDERSTANDING. PRECAUTION IN PLACE. CALL LIGHT WITHIN REACH. WILL CONTINUE TO MONITOR.
[2021-05-10 07:23] LABS: MAGNESIUM 2.3 mg/dL (1.8-2.4); PHOSPHORUS 3.5 mg/dL (2.5-4.9)
[2021-05-10 07:30] LABS: ANION GAP 10.4 (8-16); CARBON DIOXIDE 30.5 mmol/L (21-32); POTASSIUM 3.9 mmol/L (3.5-5.1)
[2021-05-10 08:00] VITALS: BP 122/82
[2021-05-10] MEDS: levETIRAcetam 500 MG TAB PO SCH ×2 (08:44→20:14)
[2021-05-10] MEDS: ASPIRIN 81 MG TAB.CHEW PO SCH (08:44)
[2021-05-10] MEDS: FUROSEMIDE 40 MG/4 ML VIAL IVP SCH ×2 (08:44→21:37)
--- NOTE | 2021-05-10 08:44 | NUR ---
SCHEDULE MEDICATIONS GIVEN WITH EDUCATION, PATIENT VERBALIZED UNDERSTANDING. PATIENT TOLERATED WELL. NO SIGN OF DISTRESS NOTED. PRECAUTION IN PLACE. CALL LIGHT WITHIN REACH. WILL CONTINUE TO MONITOR.
[2021-05-10] MEDS: ESCITALOPRAM 20 MG TAB PO SCH (08:45)
[2021-05-10] MEDS: SPIRONOLACTONE 25 MG TAB PO SCH (08:45)
[2021-05-10] MEDS: carvediloL 6.25 MG TAB PO SCH (08:45)
[2021-05-10] MEDS: ENOXAPARIN 80 MG/0.8 ML SYR SUBQ SCH ×2 (08:47→20:15)
[2021-05-10] MEDS: MORPHINE SULFATE 2 MG/ML SYR IVP PRN ×2 (09:37→18:06)
--- NOTE | 2021-05-10 09:37 | NUR ---
PATIENT COMPLAINS HEADACHE 02/17. PRN MEDICATION FOR PAIN GIVEN WITH EDUCATION. PATIENT VERBALIZED UNDERSTANDING. PATIENT TOLERATED WELL. NO SIGN OF DISTRESS NOTED. PRECAUTION IN PLACE. CALL LIGHT WITHIN REACH. WILL CONTINUE TO MONITOR.
--- NOTE | 2021-05-10 11:20 | NUR ---
PATIENT IS SITTING UP FOR LUNCH, NO SIGN OF DISTRESS NOTED. PRECAUTION IN PLACE. CALL LIGHT WITHIN REACH. WILL CONTINUE TO MONITOR.
[2021-05-10 12:00] VITALS: BP 115/70
--- NOTE | 2021-05-10 13:22 | NUR ---
DC PLANNING: THE PATIENT ADMITTED FROM HOME THROUGH THE ED WITH C/O WORSENING SOB, DID NOT USE HER INHALER SHE COULDN'T FIND IT AND DOES NOT KNOW WHEN SHE LAST TOOK HER DIURETIC. O2 SATS IN ER WERE 85%, PATIENT WAS PLACED ON O2, TROPONINS ELEVATED WELL D-DIMER AND BNP. CT ANGIO DONE TO R/O PE, NEGATIVE FOR FINDINGS. STARTED ON LASIX 40 MG IV BID, CARDIOLOGY AND PULMONOLOGY CONSULTS ORDERED. CM SPOKE WITH THE PATIENT AT BEDSIDE AND CONFIRMED HER ADDRESS AND PHONE NUMBER. THE PATIENT LIVES IN A GROUND FLOOR APARTMENT WITH HER AND DAUGHTER AND IS INDEPENDENT IN ALL ACTIVITIES. HAS HAD HOME HEALTH IN THE PAST BUT CAN'T REMEMBER THE AGENCY NAME. SHE SEES HER PCP NEEDED AND FOLLOWS UP WITH [employer] MONTHLY. 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 DC PLAN IS TO RETURN HOME WITH FAMILY WHEN STABLE, CM WILL FOLLOW FOR NEEDS.
[2021-05-10] MEDS: LORazepam 2 MG/ML VIAL IM/IVP PRN ×2 (13:26→21:56)
--- NOTE | 2021-05-10 13:26 | NUR ---
PATIENT COMPLAINS OF ANXIETY THAT CAUSE HER HEADACHE. PRN ATIVAN GIVEN WITH EDUCATION, PATIENT VERBALIZED UNDERSTANDING. PATIENT TOLERATED WELL. PRECAUTION IN PLACE. CALL LIGHT WITHIN REACH. WILL CONTINUE TO MONITOR.
[2021-05-10] MEDS: LEVOFLOXACIN 500 MG/D5W PREMIX 100 ML IV SCH (14:12)
--- NOTE | 2021-05-10 14:12 | NUR ---
SCHEDULE MEDICATIONS GIVEN WITH EDUCATION, PATIENT VERBALIZED UNDERSTANDING. PRECAUTION IN PLACE. CALL LIGHT WITHIN REACH. WILL CONTINUE TO MONITOR.
[2021-05-10 16:00] VITALS: BP 127/75
--- NOTE | 2021-05-10 16:00 | NUR ---
PATIENT IS SLEEPING, CHEST RISE AND FALL, NO SIGN OF RESPIRATORY DISTRESS NOTED. PRECAUTION IN PLACE. CALL LIGHT WITHIN REACH. WILL CONTINUE TO MONITOR.
--- NOTE | 2021-05-10 18:06 | NUR ---
PATIENT COMPLAINS OF HEADACHE 02/17, PRN PAIN MEDIATION MORPHINE 1MG IVP GIVEN WITH EDUCATION ORDER. PATIENT VERBALIZED UNDERSTANDING. PATIENT TOLERATED WELL. NO SIGN OF DISTRESS NOTED. PRECAUTION IN PLACE. CALL LIGHT WITHIN REACH. WILL CONTINUE TO MONITOR.
--- NOTE | 2021-05-10 19:10 | NUR ---
ENDORSED PATIENT TO LOCAL AREA NETWORK ADMINISTRATOR NURSE FOR CONTINUITY OF CARE. PATIENT IS STABLE.
--- NOTE | 2021-05-10 19:11 | NUR ---
RECEIVED REPORT FROM AM SHIFT FOR CONTINUITY OF CARE. PATIENT IN BED RESTING COMFORTABLY WITH HOB SLIGHTLY ELEVATED. BREATHING EVEN AND UNLABORED WITH NO SOB NOTED. NOT IN DISTRESS. ON ROOM AIR. LAC 20G SALINE LOCK INTACT AND PATENT. SKIN IS INTACT. PATIENT IS AMBULATORY. PLAN OF CARE AND WHITE COMMUNICATION BOARD UPDATED. BED IN LOW/LOCKED POSITION. CALL LIGHT WITHIN REACH. WILL CONT TO MONITOR.
[2021-05-10 20:00] VITALS: BP 127/64
[2021-05-10] MEDS: ATORVASTATIN 20 MG TAB PO SCH (20:14)
--- NOTE | 2021-05-10 20:14 | NUR ---
ADMINISTERED SCHEDULE MEDICATTIONS PER MD ORDER. PATIENT DARLIN WELL. NO ASE NOTED. PATIENT COMPLAINT OF GENERALIZED PAIN 11/17. WILL ADMINISTER PRN PER MD ORDER. RESPIRATION EVEN AND UNLABORED. NO APPARENT SIGN AND SYMPTOMS OF ACUTE DISTRESS NOTED. WHITE COMMUNICATION BOARD UPDATED. ALL SAFETY MEASURES IN PLACE. CALL LIGHT WITHIN REACH. WILL CONT TO MONITOR.
[2021-05-10] MEDS: HYDROcodone/APAP 5/325 MG 1 TAB TAB PO PRN (20:28)
--- NOTE | 2021-05-10 21:24 | NUR ---
ANSWERED CALL LIGHT. PT IS REQUESTING FOR WATER REFILL AND SOME SNACKS. PT DENIES PAIN AT THIS TIME. RESPIRATIONS EVEN AND UNLABORED. NO APPARENT S/SX OF ACUTE DISTRESS. WHITE COMMUNICATION BOARD UPDATED. ALL SAFETY MEASURES IN PLACE. CALL LIGHT WITHIN REACH. WILL CONTINUE TO MONITOR.
--- NOTE | 2021-05-10 21:58 | NUR ---
PATIENT COMPLAINT OF FEELING ANXIOUS M/B AGITATION. ADMINISTERED 1 MG ATIVAN IVP, PATIENT ALSO CO/O INABILITY TO FALL ASLEEP, ADMINISTERED AMBIEN 5 MG BY MOUTH TOLERATED WELL BY THE PATIENT. LASIX 40 MG IVP WAS ALSO GIVEN BY IV PUSH TOLERATED WELL.
--- NOTE | 2021-05-10 22:57 | NUR ---
ROUNDING PATIENT. PATIENT IN BED SLEEPING WELL. CHEST SEEN RISING AND FALLING WITH HOB SLIGHTLY ELEVATED. CALL LIGHT WITHIN REACH. ALL SAFETY MEASURES IN PLACED. WILL CONTINUE TO MONITOR.
[2021-05-11] VITALS: BP 109/66
--- NOTE | 2021-05-11 | NUR ---
ROUNDING PATIENT. PATIENT SLEEPING COMFORTABLY. CHEST SEEN RISING AND FALLING WITH HOB SLIGHTLY ELEVATED. CALL LIGHT WITHIN REACH. ALL SAFETY MEASURES IN PLACED. WILL CONTINUE TO MONITOR.
[2021-05-11] MEDS: HYDROcodone/APAP 5/325 MG 1 TAB TAB PO PRN (00:30)
--- NOTE | 2021-05-11 02:00 | NUR ---
ANSWERED CALL LIGHT. PATIENT IS REQUESTING SOME JUICE.
--- NOTE | 2021-05-11 03:50 | NUR ---
PATIENT C/O PAIN 10. BP IS LOW FOR MORPHINE. WILL CONTACT DOCTOR FOR PRN.
[2021-05-11 04:00] VITALS: BP 104/62
[2021-05-11] MEDS: MORPHINE SULFATE 2 MG/ML SYR IVP PRN ×2 (04:11→12:18)
--- NOTE | 2021-05-11 04:16 | NUR ---
RN ADMINISTER MORPHINE 1 MG VIA IVP. FOR GEN PAIN 02/17.
--- NOTE | 2021-05-11 06:10 | NUR ---
CHECK PATIENT. PATIENT IN BED SLEEPING WELL WITH HOB ELEVATED. CALL LIGHT WITHIN REACH. WILL CONT TO MONITOR.
--- NOTE | 2021-05-11 07:30 | NUR ---
ENDORSED PATIENT TO AM NURSE FOR CONTINUITY OF CARE. PATIENT IS STABLE.
--- NOTE | 2021-05-11 07:32 | NUR ---
RECEIVED BEDSIDE REPORT FROM CERAMIC DESIGNER NURSE FOR CONTINUITY OF CARE. PATIENT IS AOX4, IN BED RESTING COMFORTABLY WITH HOB ELEVATED. ON ROOM AIR. BREATHING EVEN AND UNLABORED WITH NO SOB NOTED. NOT IN DISTRESS. LAC 20G SALINE LOCK INTACT AND PATENT. SKIN IS DRY, WARM, AND INTACT. PATIENT IS AMBULATORY. PLAN OF CARE AND SAFETY PRECAUTIONS IN PLACE. BED IN LOW/LOCKED POSITION. CALL LIGHT WITHIN REACH. WILL CONT TO MONITOR.
[2021-05-11 08:00] VITALS: BP 116/84
[2021-05-11 08:10] LABS: ANION GAP 8.4 (8-16); CARBON DIOXIDE 31.9 mmol/L (21-32); POTASSIUM 3.3 mmol/L (3.5-5.1)
[2021-05-11 08:25] LABS: BASOPHILS % (AUTO) 0.3 % (0.0-2.0); EOSINOPHILS % (AUTO) 0.2 % (0.0-4.0); HEMATOCRIT 37.4 % (36-48); HEMOGLOBIN 12.1 g/dL (12.0-16.0); LYMPHOCYTES # (AUTO) 3.1 K/uL (2.5-16.5); LYMPHOCYTES % (AUTO) 34.6 % (20.5-51.1); MEAN CORPUSCULAR HEMOGLOBIN 29 pg (27-31); MEAN CORPUSCULAR HGB CONC 32 g/dL (33-37); MEAN CORPUSCULAR VOLUME 88.7 fL (80-94); MONOCYTES # (AUTO) 1.2 K/uL (0.8-1.0); MONOCYTES % (AUTO) 13.2 % (1.7-9.3); NEUTROPHILS # (AUTO) 4.6 K/uL (1.8-7.7); NEUTROPHILS % (AUTO) 51.7 % (42.2-75.2); PLATELET COUNT (AUTO) 208 K/uL (140-450); RED BLOOD CELL COUNT(AUTO) 4.22 MIL/uL (4.20-5.40); RED CELL DISTRIBUTION WIDTH 15.5 % (11.6-13.7)
[2021-05-11 08:31] LABS: MAGNESIUM 2.1 mg/dL (1.8-2.4); PHOSPHORUS 3.4 mg/dL (2.5-4.9)
[2021-05-11] MEDS: FUROSEMIDE 40 MG/4 ML VIAL IVP SCH (09:17)
[2021-05-11] MEDS: ESCITALOPRAM 20 MG TAB PO SCH (09:18)
[2021-05-11] MEDS: levETIRAcetam 500 MG TAB PO SCH (09:18)
[2021-05-11] MEDS: SPIRONOLACTONE 25 MG TAB PO SCH (09:18)
[2021-05-11] MEDS: carvediloL 6.25 MG TAB PO SCH (09:18)
[2021-05-11] MEDS: ASPIRIN 81 MG TAB.CHEW PO SCH (09:18)
[2021-05-11] MEDS: ENOXAPARIN 80 MG/0.8 ML SYR SUBQ SCH (09:26)
[2021-05-11] MEDS: LORazepam 2 MG/ML VIAL IM/IVP PRN (09:27)
--- NOTE | 2021-05-11 09:27 | NUR ---
ALL SCHEDULED MEDS GIVEN. PT COMPLAINS OF ANXIETY. ADMINISTERED PRN ATIVAN PER MD ORDERED. WILL CONTINUE TO MONITOR.
[2021-05-11 12:00] VITALS: BP 128/84
--- NOTE | 2021-05-11 12:18 | NUR ---
PT COMPLAINED OF GENERALIZED PAIN 02/17. ADMINISTERED PRN PAIN MEDS MD ORDERED.
--- NOTE | 2021-05-11 13:00 | NUR ---
PATIENT IS A 60 YEAR-OLD FEMALE ADMITTED IN THE [facility]/ED ON 05/08/2021 DUE TO SHORTNESS OF BREATH. SW MET WITH PATIENT AT BEDSIDE TO DISCUSS AND GATHER HER COLLATERAL INFORMATION. PATIENT REPORTED LIVING AT HOME WITH HER AND DAUGHTER SUREKHA IN [facility]. PATIENT REPORTED THAT HER DAUGHTER AND ARE HER EMERGENCY CONTACTS. PATIENT DISCLOSED DURING THE VISIT WITH THESE CROWN ASSEMBLY MACHINE SET UP MECHANIC THAT SHE DID NOT HAVE ADVANCE DIRECTIVES IN PLACE AND DID NOT WANTED THE INF. PACKET PROVIDED BY [facility]. PATIENT STATED " THEY ARE GOING TO MAKE THE DESICIONS FOR ME" PER PATIENT SHE REPORTED NOT HAVING ANY ISSUES GETTING OR TAKING HER MEDICATIONS FROM THE [facility] IN [place] NEAR HER HOME. PATIENT STATED NOT HAVING OR NEEDING DME AT HOME AND BEEN ACTIVE AND INDEPENDENT TO AMBULATE. PATIENT REPORTED GOING TO HER PCP IN [facility] MARYURI PERKINS IN [facility]. PER PATIENT LAST VISIT WITH WAS ABOUT A MONTH AGO. [facility] INFORMED PATIENT THAT A FOLLOW UP APPOINTMENT WITH HER PCP WILL BE SCHEDULED BY THESE CROWN ASSEMBLY MACHINE SET UP MECHANIC BF HER DISCHARGE FROM [facility], PATIENT DECLINED THE APPOINTMENT STATING THAT SHE DID NOT WANT SW TO MAKE HER FOLLOW UP APPOINTMENT AND INSTEAD SHE WILL BE THE ONE MAKING HER OWN APPOINTMENT TO FOLLOW UP AFTER HER DC FROM [facility]. PATIENT ALSO STATED THAT HER DAUGHTER WILL BE PICKING HER UP AND ASSIST HER WITH TRANSPORTATION BACK TO HER HOME WHEN SHE IS READY TO DC FROM [facility]. [facility] THANKED HER FOR THE INFORMATION SHE PROVIDED AND LEFT THE ROOM. [facility] WILL FOLLOW UP NEEDED WITH PATIENT.
[2021-05-11 14:00] VITALS: BP 116/84
[2021-05-11] MEDS: LEVOFLOXACIN 500 MG/D5W PREMIX 100 ML IV SCH (14:11)
--- NOTE | 2021-05-11 14:30 | NUR ---
ENDORSED DISCHARGE INSTRUCTIONS TO PATIENT. PATIENT VERBALIZED UNDERSTANDING AND SIGNED DISCHARGE FORMS.
--- NOTE | 2021-05-11 14:59 | NUR ---
PT DISCHARGED OFF THE UNIT. IV AND ID BAND REMOVED. PT WAS ESCORTED TO THE FRONT LOBBY AND PICKED UP BY DAUGHTER. PT WAS STABLE PRIOR TO DISCHARGE.
[2021-05-16 08:12] LABS: T4 (THYROXINE) 5.6 ug/dL (4.5-12.0)
== END 2021-05-11 15:00 | disposition home or self-care (01) | DRG 280 ==
LOC: MED 06:23 → MTU 10:39
DX: I11.0 Hypertensive heart disease with heart failure (principal); I21.A1 Myocardial infarction type 2; G92.9 Unspecified toxic encephalopathy; I50.43 Acute on chronic combined systolic (congestive) and diastolic (congestive) heart failure; J96.90 Respiratory failure, unspecified, unspecified whether with hypoxia or hypercapnia; J44.1 Chronic obstructive pulmonary disease with (acute) exacerbation; I42.7 Cardiomyopathy due to drug and external agent; K21.9 Gastro-esophageal reflux disease without esophagitis; G40.909 Epilepsy, unspecified, not intractable, without status epilepticus; F10.10 Alcohol abuse, uncomplicated; Y90.9 Presence of alcohol in blood, level not specified; F15.10 Other stimulant abuse, uncomplicated; Z20.822 Contact with and (suspected) exposure to COVID-19; Z88.0 Allergy status to penicillin; Z88.8 Allergy status to other drugs, medicaments and biological substances; Z79.899 Other long term (current) drug therapy; Z86.73 Personal history of transient ischemic attack (TIA), and cerebral infarction without residual deficits; Z79.82 Long term (current) use of aspirin; Z90.710 Acquired absence of both cervix and uterus
CPT/HCPCS: 36415; 36600; 71045; 71275; 80048; 80053; 82150; 82803; 83036; 83690; 83735; 83880; 84100; 84134; 84436; 84443; 84484; 85025; 85379; 85610; 85730; 87081; 93005; 94640; 96374; 96375; 99291; J1650; J1940; J1956; J2060; J2270; J2920; J2930; Q0092; Q9967

== ENCOUNTER 2021-05-19 08:21 | Inpatient (IN) | payer OTHER, SELFPAY ==
[~2021-05-19] VITALS: Ht 161.3 cm; Wt 80.3 kg
[2021-05-19 08:40] VITALS: BP 158/115
--- NOTE | 2021-05-19 08:45 | NUR ---
pt ambulated to bed 3
--- NOTE | 2021-05-19 08:49 | NUR ---
DR PUENTES AT BEDSIDE EXAMINING PT
--- NOTE | 2021-05-19 08:50 | NUR ---
60 y/o female, pt bib family from home presents to ed with chest pain and duran that started this morning. pt states she also has nausea. pt states she is also having sob and productive cough. pmh: congestive heart failure, htn med: denies allergies: penicillin, lisinopril
[2021-05-19] MEDS ORDERED: ALUMINUM HYD/MAG/SIMETHICONE 30 ML UDC ONE (08:53)
[2021-05-19] MEDS ORDERED: DICYCLOMINE HCL LIQUID 10 MG/5 ML UDC ONE (08:53)
[2021-05-19] MEDS ORDERED: DICYCLOMINE HCL LIQUID 20 MG, ALUMINUM HYD/MAG/SIMETHICONE 30 ML, LIDOCAINE VISCOUS 2% ... PO ONE ×3 (08:55)
--- NOTE | 2021-05-19 09:13 | NUR ---
XRAY AT BEDSIDE, RT AT BEDSIDE
--- NOTE | 2021-05-19 09:33 | NUR ---
LAB AT BEDSIDE
[2021-05-19 10:06] LABS: BASOPHILS % (AUTO) 0.5 % (0.0-2.0); EOSINOPHILS # (AUTO) 0.1 K/uL (0-0.4); EOSINOPHILS % (AUTO) 1.6 % (0.0-4.0); HEMATOCRIT 36.4 % (36-48); HEMOGLOBIN 11.9 g/dL (12.0-16.0); LYMPHOCYTES # (AUTO) 1.8 K/uL (2.5-16.5); LYMPHOCYTES % (AUTO) 34.4 % (20.5-51.1); MEAN CORPUSCULAR HEMOGLOBIN 29 pg (27-31); MEAN CORPUSCULAR HGB CONC 33 g/dL (33-37); MEAN CORPUSCULAR VOLUME 88.4 fL (80-94); MONOCYTES # (AUTO) 0.6 K/uL (0.8-1.0); MONOCYTES % (AUTO) 12.2 % (1.7-9.3); NEUTROPHILS # (AUTO) 2.7 K/uL (1.8-7.7); NEUTROPHILS % (AUTO) 51.3 % (42.2-75.2); PLATELET COUNT (AUTO) 233 K/uL (140-450); RED BLOOD CELL COUNT(AUTO) 4.11 MIL/uL (4.20-5.40); RED CELL DISTRIBUTION WIDTH 15.6 % (11.6-13.7); WHITE BLOOD COUNT (AUTO) 5.3 K/uL (4.8-10.8)
[2021-05-19 10:23] LABS: ALBUMIN 3.2 g/dL (3.4-5.0); ANION GAP 11.4 (8-16); CARBON DIOXIDE 27.9 mmol/L (21-32); CREATININE 0.8 mg/dL (0.6-1.3); POTASSIUM 4.3 mmol/L (3.5-5.1); TOTAL BILIRUBIN 0.2 mg/dL (0.0-1.0)
[2021-05-19] MEDS ORDERED: ASPIRIN 81 MG TAB.CHEW PO ONE (11:15)
[2021-05-19] MEDS ORDERED: FUROSEMIDE 20 MG/2 ML VIAL IVP ONE (11:15)
--- NOTE | 2021-05-19 12:09 | NUR ---
PT TAKEN TO CT SCAN VIA W/C
--- NOTE | 2021-05-19 12:22 | NUR ---
PT RETURNED FROM CT
--- NOTE | 2021-05-19 13:29 | NUR ---
PT AMBULATED TO RESTROOM, STEADY GAIT
--- NOTE | 2021-05-19 14:29 | NUR ---
ECHO BEING PERFORMED AT BEDSIDE
[2021-05-19] MEDS: MORPHINE SULFATE 2 MG/ML SYR IVP PRN ×3 (14:30→23:43)
[2021-05-19] MEDS ORDERED: POTASSIUM CHLORIDE 10 MEQ TABER PO PRN (15:00)
[2021-05-19] MEDS ORDERED: HYDROcodone/APAP 5/325 MG 1 TAB TAB PO PRN (15:00)
[2021-05-19] MEDS ORDERED: LORazepam 2 MG/ML VIAL IM/IVP PRN (15:00)
[2021-05-19] MEDS ORDERED: DOCUSATE SODIUM 100 MG GELCAP PO PRN (15:00)
[2021-05-19] MEDS ORDERED: MAG SULF 2000 MG/WATER PREMIX 50 ML IV PRN (15:00)
[2021-05-19] MEDS ORDERED: ONDANSETRON 4 MG/2 ML VIAL IVP PRN (15:00)
[2021-05-19] MEDS ORDERED: ZOLPIDEM 5 MG TAB PO PRN (15:00)
[2021-05-19] MEDS ORDERED: SODIUM PHOS / POTASSIUM PHOS 1 PKT PDR PO PRN (15:00)
[2021-05-19] MEDS ORDERED: ACETAMINOPHEN 325 MG TAB PO PRN (15:00)
--- NOTE | 2021-05-19 15:55 | NUR ---
Patient will be admitted to care of DR PABLO. Admited to TELEMETRY. Will go to room 105A. Belongings list completed. Report to JOSE VIERA.
[2021-05-19 15:58] LABS: CHOL/HDL RATIO 1.7 (1-4.5); FREE T4 (FREE THYROXINE) 0.84 ng/dL (0.76-1.46); PHOSPHORUS 3.1 mg/dL (2.5-4.9); THYROID STIMULATING HORMONE 0.45 uIU/mL (0.34-3.74)
--- NOTE | 2021-05-19 15:58 | NUR ---
RECEIVED REPORT FROM ED NURSE FOR CONTINUITY OF CARE. WAITING FOR TRANSFER TO [facility].
[2021-05-19 16:00] VITALS: BP 149/102
--- NOTE | 2021-05-19 16:00 | NUR ---
PT ARRIVED IN [facility], BED 105A. NO S/S OF DISTRESS. BREATHING SYMMETRICAL. IV SITE DRY, CLEAN, INTACT. CALL LIGHT IN REACH. ALL SAFETY MEASURES IN PLACE. NOTIFIED FNS OF PT REQUEST FOR FOOD
[2021-05-19 16:06] LABS: PROTHROMBIN TIME 9.7 secs (10.8-13.4)
--- NOTE | 2021-05-19 16:15 | NUR ---
RECEIVED CRITICAL VALUE RESULT FROM LAB FOR TROPONIN 0.475 AT 1613. MD NOTIFIED, NO CHANGE IN ORDERS
[2021-05-19 16:45] LABS: BARBITURATE, URINE NEGATIVE ng/ml (NEG <=200); BENZODIAZEPINE, URINE NEGATIVE ng/mL (NEG <=200); CANNABINOID, URINE POSITIVE ng/mL (NEG <=50); COCAINE, URINE NEGATIVE ng/mL (NEG <=300); OPIATE, URINE NEGATIVE ng/mL (NEG <=2000); PHENCYCLIDINE SCREEN,URINE NEGATIVE ng/mL (NEG <=25)
[2021-05-19] MEDS ORDERED: hydrALAZINE 20 MG/ML VIAL IVP PRN (16:45)
[2021-05-19] MEDS: FUROSEMIDE 40 MG/4 ML VIAL IVP SCH (17:39)
--- NOTE | 2021-05-19 18:35 | NUR ---
RECEIVED CRITICAL VALUE RESULT FROM LAB FOR TROPONIN 0.479 AT 1822. BELOW BASELINE PER MD, NO CHANGE IN ORDERS
--- NOTE | 2021-05-19 19:34 | NUR ---
ENDORSED PT TO MAINSPRING STRIP INSPECTOR NURSE FOR CONTINUITY OF CARE. PT STABLE. NO S/S OF DISTRESS. BREATHING SYMMETRICAL. CALL LIGHT IN REACH. ALL SAFETY MEASURES IN PLACE.
[2021-05-19 20:00] VITALS: BP 135/81
--- NOTE | 2021-05-19 20:00 | NUR ---
RECEIVED BEDSIDE REPORT FROM DAY RN FOR CONTINUITY OF CARE. PATIENT A/A/OX4, SITTING UP IN BED WATCHING TV. PT NOT ON ANY DISTRESS AND NO COMPLAIN AT THIS TIME. VSS, AFEBRILE, SATING 99% ON RA. SA WITH INVERTED T WAVE ON CAR DUMPER, HR-84. DISCUSSED POC WITH THE PT AND VERBALIZED UNDERSTANDING. CALL LIGHT WITHIN REACH. WILL CONTINUE POC AND MONITORING.
[2021-05-19] MEDS: carvediloL 6.25 MG TAB PO SCH (20:20)
[2021-05-19] MEDS: levETIRAcetam 500 MG TAB PO SCH (20:20)
--- NOTE | 2021-05-19 22:00 | NUR ---
ALL DUE MEDS GIVEN. PT TOLERATED IT WELL. NO ADVERSE DRUG REACTION AND COMPLAIN FROM THE PATIENT. WILL CONTINUE OBSERVATION.
[2021-05-20] VITALS: BP 125/69
--- NOTE | 2021-05-20 | NUR ---
VITAL SIGNS STABLE, AFEBRILE, [id number]% ON RA. SA WITH INVERTED T WAVE ON REEL AND REWINDER OPERATOR, HR-64. NO COMPLAIN OF PAIN AT THIS TIME. CALL LIGHT WITHIN REACH. WILL CONTINUE OBSERVATION.
--- NOTE | 2021-05-20 02:40 | NUR ---
PATIENT ASLEEP AT THIS TIME. VISIBLE CHEST RISE AND FALL NOTED. NOT IN ANY DISTRESS. CALL LIGHT WITHIN REACH. WILL CONTINUE OBSERVATION.
[2021-05-20] MEDS: PANTOPRAZOLE 40 MG TABEC PO SCH (03:17)
[2021-05-20] MEDS ORDERED: PANTOPRAZOLE 40 MG TABEC PO ONE (03:17)
--- NOTE | 2021-05-20 03:47 | NUR ---
PATIENT AWAKE AND REQUESTED MEDICATION FOR ACID REFLUX. PATIENT HAS A SCHEDULE PROTONIX LATER THIS AM. GAVE PROTONIX EARLIER THAN SCHEDULED.
[2021-05-20 04:00] VITALS: BP 126/71
--- NOTE | 2021-05-20 04:00 | NUR ---
VITAL SIGNS STABLE, AFEBRILE, SATING 100 % ON RA. SA WITH INVERTED T WAVE ON PLAYER DEVELOPMENT EXECUTIVE, HR-76. PT COMPLAINING OF GENERALIZED PAIN /. CALL LIGHT WITHIN REACH. WILL CONTINUE OBSERVATION.
[2021-05-20] MEDS: MORPHINE SULFATE 2 MG/ML SYR IVP PRN ×4 (04:39→20:09)
--- NOTE | 2021-05-20 06:56 | NUR ---
NO ACUTE EVENT THROUGHOUT THE NIGHT. PATIENT STABLE AND NOT IN ANY DISTRESS. NO COMPLAIN AT THIS TIME. ALL NEEDS ATTENDED. CALL LIGHT WITHIN REACH. WILL ENDORSE THE PATIENT TO THE ONCOMING RN FOR CONTINUITY OF CARE.
[2021-05-20 06:57] LABS: BASOPHILS % (AUTO) 0.6 % (0.0-2.0); EOSINOPHILS # (AUTO) 0.1 K/uL (0-0.4); EOSINOPHILS % (AUTO) 1.5 % (0.0-4.0); HEMOGLOBIN 11.6 g/dL (12.0-16.0); LYMPHOCYTES # (AUTO) 2.1 K/uL (2.5-16.5); MEAN CORPUSCULAR HEMOGLOBIN 29 pg (27-31); MEAN CORPUSCULAR HGB CONC 33 g/dL (33-37); MEAN CORPUSCULAR VOLUME 87.5 fL (80-94); MONOCYTES # (AUTO) 0.7 K/uL (0.8-1.0); MONOCYTES % (AUTO) 13.2 % (1.7-9.3); NEUTROPHILS # (AUTO) 2.7 K/uL (1.8-7.7); NEUTROPHILS % (AUTO) 47.7 % (42.2-75.2); PLATELET COUNT (AUTO) 227 K/uL (140-450); RED BLOOD CELL COUNT(AUTO) 3.99 MIL/uL (4.20-5.40); RED CELL DISTRIBUTION WIDTH 15.7 % (11.6-13.7); WHITE BLOOD COUNT (AUTO) 5.6 K/uL (4.8-10.8)
[2021-05-20 07:10] LABS: ALBUMIN 2.9 g/dL (3.4-5.0); ANION GAP 13.3 (8-16); CARBON DIOXIDE 26.8 mmol/L (21-32); CREATININE 1.1 mg/dL (0.6-1.3); MAGNESIUM 2.1 mg/dL (1.8-2.4); POTASSIUM 4.1 mmol/L (3.5-5.1); TOTAL BILIRUBIN 0.1 mg/dL (0.0-1.0)
--- NOTE | 2021-05-20 07:10 | NUR ---
RECEIVED REPORT FROM CYBER WORKFORCE DEVELOPER AND MANAGER NURSE FOR CONTINUITY OF CARE. PT IS AWAKE AND ALERT. A&OX4. ON RA WITH BREATHING UNLABORED. SR ON TELE MONITOR. AMBULATORY INDEPENDENTLY. SKIN IS WARM, DRY, AND INTACT. IV IS IN THE RIGHT FOREARM 20 GAUGE SALINE LOCKED. PT IS STABLE. PLAN OF CARE DISCUSSED.
--- NOTE | 2021-05-20 07:34 | NUR ---
ENDORSED PT TO THE ONCOMING RN RAMA FOR CONTINUITY OF CARE. PATIENT STABLE. SIGNING OFF.
[2021-05-20 08:00] VITALS: BP 112/72
[2021-05-20] MEDS: ATORVASTATIN 20 MG TAB PO SCH (08:27)
[2021-05-20] MEDS: ECOTRIN 81 MG TABEC PO SCH (08:27)
--- NOTE | 2021-05-20 08:28 | NUR ---
PATIENT HAS BEEN SCREENED AND CATEGORIZED MODERATE NUTRITION RISK. PATIENT WILL BE SEEN WITHIN 3-5 DAYS OF ADMISSION. 05/22/2021-05/24/[address]
[2021-05-20] MEDS: levETIRAcetam 500 MG TAB PO SCH ×2 (08:30→20:08)
[2021-05-20] MEDS: ESCITALOPRAM 20 MG TAB PO SCH (08:32)
[2021-05-20] MEDS: FUROSEMIDE 40 MG/4 ML VIAL IVP SCH ×2 (08:36→16:07)
[2021-05-20] MEDS: SPIRONOLACTONE 25 MG TAB PO SCH (08:36)
--- NOTE | 2021-05-20 08:41 | NUR ---
PT STATES SHE HAS GENERALIZED PAIN ALSO ON HER CHEST AT A SCALE OF 8/10. PT WAS GIVEN MORPHINE FOR PAIN. BP WAS 124/79 PRIOR TO ADMINISTRATION OF MEDICATION. WILL CONTINUE TO MONITOR FOR PAIN.
[2021-05-20] MEDS: carvediloL 6.25 MG TAB PO SCH ×2 (09:00→20:09)
[2021-05-20] MEDS: LOSARTAN 25 MG TAB PO SCH (09:38)
--- NOTE | 2021-05-20 10:30 | NUR ---
PT IS UP AT THE BEDSIDE GIVING SELF BED BATH. PT AMBULATES INDEPENDENTLY WITH STEADY GAIT. PT DENIES PAIN AT THIS TIME. PT STABLE.
[2021-05-20 12:00] VITALS: BP 132/88
--- NOTE | 2021-05-20 12:30 | NUR ---
PT IS AWAKE AND ALERT. NO DISTRESS NOTED. PT DENIES PAIN. BREATHING IS UNLABORED ON RA. WILL CONTINUE TO MONITOR.
--- NOTE | 2021-05-20 14:05 | NUR ---
PT STATES SHE HAS PAIN AT A SCALE OF 8/10 GENERALIZED. PT WAS GIVEN MORPHINE FOR PAIN. BP WAS 133/88 PRIOR TO ADMINISTRATION OF MEDICATION. WILL MONITOR PAIN.
[2021-05-20 16:00] VITALS: BP 131/78
--- NOTE | 2021-05-20 16:00 | NUR ---
ROUNDED ON PT. SHE IS AWAKE AND STABLE. PT DENIES PAIN. PT STATES SHE IS FEELING BETTER THAN EARLIER TODAY. BED IS IN LOWEST POSITION AND CALL LIGHT WITHIN REACH.
--- NOTE | 2021-05-20 17:24 | NUR ---
PT IS ASLEEP. BREATHING IS UNLABORED. IV IS INTACT ON THE RIGHT WRIST. CELL PHONE WITHIN REACH AT BEDSIDE. PT IS STABLE.
--- NOTE | 2021-05-20 19:14 | NUR ---
ENDORSED PT TO PRODUCTION TOOL ENGINEER NURSE FOR CONTINUITY OF CARE. PT IS STABLE. PLAN OF CARE DISCUSSED.
--- NOTE | 2021-05-20 19:30 | NUR ---
RECEIVED REPORT FROM DAY SHIFT RN. PT IS ON RA SATING 98%. PT IS LAYING IN BED WATCHING T.V. PT IS NOT IN ANY DISTRESS. WILL CONTINUE TO MONITOR THE PT AND PROVIDE PLAN OF CARE.
[2021-05-20 20:00] VITALS: BP 111/69
--- NOTE | 2021-05-20 20:15 | NUR ---
ALL DUE MEDS GIVEN. NO ADVERSE REACTION NOTED. PT IV ON RIGHT FOREARM WAS REMOVED DUE TO IT BEING INFILTRATED. NEW IV ON LEFT FOREARM 20 GAUGE INSERTED. PT IS NOT IN ANY DISTRESS AND HAS NO COMPLAINS AT THIS TIME. CALL LIGHT WITHIN REACH. ALL SAFETY MEASURES TAKEN. WILL CONTINUE TO MONITOR AND PROVIDE PLAN OF CARE.
[2021-05-21] VITALS: BP 111/74
--- NOTE | 2021-05-21 01:30 | NUR ---
PT IS SLEEPING IN BED. VISIBLE CHEST RISE AND FALL. NO DISTRESS NOTED. ALL SAFETY PRECAUTIONS TAKEN. WILL CONTINUE TO MONITOR THE PT.
[2021-05-21] MEDS: MORPHINE SULFATE 2 MG/ML SYR IVP PRN ×2 (02:56→09:46)
--- NOTE | 2021-05-21 03:28 | NUR ---
PT IS AWAKE EATING SNACKS IN BED. BROUGHT MORE WATER REQUESTED. PT IS NOT IN ANY DISTRESS. NO FURTHER COMPLAINS. CALL LIGHT WITHIN REACH. ALL SAFETY MEASURES TAKEN. WILL CONTINUE TO MONITOR THE PT.
[2021-05-21 04:00] VITALS: BP 99/63
--- NOTE | 2021-05-21 05:53 | NUR ---
PT IS SLEEPING IN BED. PT SHOWS NO SIGNS OF DISTRESS. CHEST RISE AND FALL. NO SOB OR LABORED BREATHING NOTED. CALL LIGHT WITHIN REACH. ALL SAFETY MEASURES TAKEN. WILL CONTINUE TO MONITOR THE PT.
[2021-05-21 06:22] LABS: BASOPHILS # (AUTO) 0.1 K/uL (0.00-0.22); BASOPHILS % (AUTO) 0.9 % (0.0-2.0); EOSINOPHILS # (AUTO) 0.2 K/uL (0-0.4); HEMATOCRIT 34.1 % (36-48); HEMOGLOBIN 11.3 g/dL (12.0-16.0); LYMPHOCYTES # (AUTO) 2.1 K/uL (2.5-16.5); LYMPHOCYTES % (AUTO) 34.8 % (20.5-51.1); MEAN CORPUSCULAR HEMOGLOBIN 29 pg (27-31); MEAN CORPUSCULAR HGB CONC 33 g/dL (33-37); MEAN CORPUSCULAR VOLUME 88.4 fL (80-94); MONOCYTES # (AUTO) 0.8 K/uL (0.8-1.0); MONOCYTES % (AUTO) 12.7 % (1.7-9.3); NEUTROPHILS # (AUTO) 2.9 K/uL (1.8-7.7); NEUTROPHILS % (AUTO) 48.6 % (42.2-75.2); PLATELET COUNT (AUTO) 219 K/uL (140-450); RED BLOOD CELL COUNT(AUTO) 3.86 MIL/uL (4.20-5.40); WHITE BLOOD COUNT (AUTO) 5.9 K/uL (4.8-10.8)
[2021-05-21 06:48] LABS: ALBUMIN 2.8 g/dL (3.4-5.0); ANION GAP 12.8 (8-16); CARBON DIOXIDE 27.1 mmol/L (21-32); CREATININE 0.9 mg/dL (0.6-1.3); POTASSIUM 3.9 mmol/L (3.5-5.1); TOTAL BILIRUBIN 0.2 mg/dL (0.0-1.0)
--- NOTE | 2021-05-21 07:09 | NUR ---
ENDORSED PT TO DAY SHIFT RN FOR CONTINUITY OF CARE. PT IS IN STABLE CONDITION. SIGNING OFF.
--- NOTE | 2021-05-21 07:10 | NUR ---
RECEIVED BEDSIDE REPORT FROM HUMANITIES TEACHER NURSE FOR CONTINUITY OF CARE. PT IS AWAKE AND ALERT. A&OX4. ON RA WITH BREATHING UNLABORED. SR ON TELE MONITORING. AMBULATORY INDEPENDENTLY. SKIN IS WARM, DRY, AND INTACT. IV IS IN THE LEFT FA 20 GAUGE SALINE LOCKED. PT IS STABLE. PLAN OF CARE DISCUSSED.
[2021-05-21 08:00] VITALS: BP 132/81
[2021-05-21] MEDS: ATORVASTATIN 20 MG TAB PO SCH (08:13)
[2021-05-21] MEDS: FUROSEMIDE 40 MG/4 ML VIAL IVP SCH (08:13)
[2021-05-21] MEDS: ESCITALOPRAM 20 MG TAB PO SCH (08:14)
[2021-05-21] MEDS: levETIRAcetam 500 MG TAB PO SCH (08:14)
[2021-05-21] MEDS: SPIRONOLACTONE 25 MG TAB PO SCH (08:15)
[2021-05-21] MEDS: ECOTRIN 81 MG TABEC PO SCH (08:15)
[2021-05-21] MEDS: carvediloL 6.25 MG TAB PO SCH (08:15)
[2021-05-21] MEDS: PANTOPRAZOLE 40 MG TABEC PO SCH (08:17)
[2021-05-21] MEDS: LOSARTAN 25 MG TAB PO SCH (08:20)
--- NOTE | 2021-05-21 09:47 | NUR ---
PT STATES SHE HAS PAIN AT A SCALE OF 8/10 IN THE SHOULDER AND GENERALIZED. PT WAS GIVEN MORPHINE FOR PAIN. BP WAS 106/70 PRIOR TO ADMINISTRATION OF MEDICATION.
[2021-05-21] MEDS ORDERED: CARV6.25 PO (11:07)
[2021-05-21] MEDS ORDERED: SPIR25TA PO (11:07)
[2021-05-21] MEDS ORDERED: ASPI81CT95 PO (11:07)
[2021-05-21] MEDS ORDERED: LOSA25TA43 PO (11:07)
[2021-05-21] MEDS ORDERED: FURO-570 PO (11:07)
[2021-05-21] MEDS ORDERED: PANT40EC56 PO (11:07)
--- NOTE | 2021-05-21 11:30 | NUR ---
PT IS SLEEPING. CHEST RISE AND FALL SYMMETRICAL. NO PAIN NOTED. IV IS INTACT WITH NO INFILTRATION NOTED. CALL LIGHT IS WITHIN REACH.
[2021-05-21 12:00] VITALS: BP 130/72
[2021-05-21 12:21] VITALS: BP 132/81
--- NOTE | 2021-05-21 13:35 | NUR ---
PT WAS DISCHARGED FROM HOSPITAL. AMBULATED TO ENTRANCE WITH STEADY GAIT. ID BAND WAS REMOVED. IV WAS REMOVED AND BLEEDING WAS CONTROLLED. DISCHARGE INSTRUCTIONS PROVIDED AND PT VERBALIZED UNDERSTANDING. TEACHING WAS PROVIDED ON SMOKING CESSATION, MEDICATION AND SIDE EFFECTS, AND F/U WITH PCP WITHIN 1 WEEK. PT IS STABLE. VS ARE STABLE. PT DISCHARGED.
[2021-05-22] MEDS ORDERED: FUROSEMIDE 40 MG TAB PO SCH (09:00)
== END 2021-05-21 13:45 | disposition home or self-care (01) | DRG 291 ==
LOC: MED 08:21 → MTU 11:55
PROVIDERS: ADMIT Family Medicine; ATTEND Family Medicine
DX: I11.0 Hypertensive heart disease with heart failure (principal); I50.43 Acute on chronic combined systolic (congestive) and diastolic (congestive) heart failure; I24.8 Other forms of acute ischemic heart disease; I42.9 Cardiomyopathy, unspecified; E11.9 Type 2 diabetes mellitus without complications; J44.9 Chronic obstructive pulmonary disease, unspecified; E87.8 Other disorders of electrolyte and fluid balance, not elsewhere classified; Z20.822 Contact with and (suspected) exposure to COVID-19; K21.9 Gastro-esophageal reflux disease without esophagitis; Z86.73 Personal history of transient ischemic attack (TIA), and cerebral infarction without residual deficits; Z87.891 Personal history of nicotine dependence; Z79.899 Other long term (current) drug therapy; Z91.14 Patient's other noncompliance with medication regimen; Z79.82 Long term (current) use of aspirin; Z88.0 Allergy status to penicillin; Z88.8 Allergy status to other drugs, medicaments and biological substances
CPT/HCPCS: 36415; 70450; 71045; 80053; 80305; 82150; 83036; 83690; 83735; 83880; 84100; 84439; 84443; 84484; 85025; 85610; 85730; 87081; 93005; 93308; 99285; J1940; J2270; Q0092

== ENCOUNTER 2021-05-30 08:15 | Emergency (ER) | payer OTHER, SELFPAY ==
[~2021-05-30] VITALS: Ht 157.5 cm; Wt 82.1 kg
[2021-05-30 08:18] VITALS: BP 155/90
--- NOTE | 2021-05-30 08:18 | NUR ---
TO ER BED 9
[2021-05-30] MEDS: NITROGLYCERIN 0.4 MG TAB SL ONE (08:39)
[2021-05-30] MEDS: ASPIRIN 325 MG TAB PO ONE (08:39)
--- NOTE | 2021-05-30 08:39 | NUR ---
XRAY BEDSIDE WITH PATIENT
--- NOTE | 2021-05-30 08:39 | NUR ---
20 G IV ESTABLISHED IN L HAND AND BLOOD WORK COLLECTED. BLOOD WALKED OVER TO LAB
[2021-05-30 08:58] LABS: BASOPHILS % (AUTO) 0.7 % (0.0-2.0); EOSINOPHILS # (AUTO) 0.1 K/uL (0-0.4); EOSINOPHILS % (AUTO) 2.8 % (0.0-4.0); HEMATOCRIT 37.2 % (36-48); HEMOGLOBIN 12.3 g/dL (12.0-16.0); LYMPHOCYTES # (AUTO) 1.8 K/uL (2.5-16.5); LYMPHOCYTES % (AUTO) 44.8 % (20.5-51.1); MEAN CORPUSCULAR HEMOGLOBIN 29 pg (27-31); MEAN CORPUSCULAR HGB CONC 33 g/dL (33-37); MEAN CORPUSCULAR VOLUME 86.7 fL (80-94); MONOCYTES # (AUTO) 0.6 K/uL (0.8-1.0); MONOCYTES % (AUTO) 14.9 % (1.7-9.3); NEUTROPHILS # (AUTO) 1.5 K/uL (1.8-7.7); NEUTROPHILS % (AUTO) 36.8 % (42.2-75.2); PLATELET COUNT (AUTO) 216 K/uL (140-450); RED BLOOD CELL COUNT(AUTO) 4.29 MIL/uL (4.20-5.40); RED CELL DISTRIBUTION WIDTH 15.5 % (11.6-13.7); WHITE BLOOD COUNT (AUTO) 4.1 K/uL (4.8-10.8)
--- NOTE | 2021-05-30 08:59 | NUR ---
60/F BIB DAUGHTER. A&O X4, AMBULATORY W/ STEADY GAIT, C/O INTERMITTENT CHEST PAIN SINCE LAST NIGHT. PATIENT STATES CP BEGAN LAST NIGHT WHILE SHE WAS SLEEPING. PAIN IS 8/10, RADIATES TO R SHOULDER, +N AND SOB. PATIENT HAS A HX OF METH AND CIGARETTE USE, LAST USE X2 WEEKS AGO. PMH: SEIZURES, STROKE, SMOKING AND METH ABUSE MEDS: ALBUTEROL ALLERGIES: PENICILLIN, LISINOPRIL
[2021-05-30 09:07] LABS: ANION GAP 15.7 (8-16); CARBON DIOXIDE 26.7 mmol/L (21-32); CREATININE 0.8 mg/dL (0.6-1.3); POTASSIUM 3.4 mmol/L (3.5-5.1)
[2021-05-30 09:13] LABS: TOTAL BILIRUBIN 0.5 mg/dL (0.0-1.0)
--- NOTE | 2021-05-30 10:50 | NUR ---
KELLI FIELDS COLLECTED AND WALKED OVER TO LAB BY JALIL PATEL
[2021-05-30] MEDS: LORazepam 2 MG/ML VIAL IVP ONE (11:29)
--- NOTE | 2021-05-30 12:04 | NUR ---
SPOKE WITH PATIENT AND PROVIDED WITH UPDATE ON PATIENT STATUS
[2021-05-30 13:30] VITALS: BP 151/97
--- NOTE | 2021-05-30 13:30 | NUR ---
The patient's care was reviewed and supervised by Maria M Gomez RN, RN.
--- NOTE | 2021-05-30 13:30 | NUR ---
Patient discharged with v/s stable. Written and verbal after care instructions given and explained. Patient alert, oriented and verbalized understanding of instructions. Ambulatory with steady gait. All questions addressed prior to discharge. ID band removed. Patient advised to follow up with PMD. Opportunity to ask questions provided and answered.
--- NOTE | 2021-05-30 13:30 | NUR ---
Chart checked and completed. The patient's care was reviewed and supervised by Maria M Gomez, RN, RN.
== END 2021-05-30 13:30 | disposition home or self-care (01) ==
LOC: MED 08:15
DX: R07.9 Chest pain, unspecified (principal); R06.02 Shortness of breath; I11.9 Hypertensive heart disease without heart failure; J44.9 Chronic obstructive pulmonary disease, unspecified; Z20.822 Contact with and (suspected) exposure to COVID-19
CPT/HCPCS: 36415; 71045; 80053; 83690; 83880; 84484; 85025; 87426; 93005; 96374; 99285; J2060; Q0092

== ENCOUNTER 2021-07-28 03:35 | Inpatient (IN) | payer OTHER, SELFPAY ==
[~2021-07-28] VITALS: Ht 157.5 cm; Wt 83.9 kg
--- NOTE | 2021-07-28 03:36 | NUR ---
biba taken to bed #9
[2021-07-28 03:37] VITALS: BP 191/127
[2021-07-28] MEDS ORDERED: FUROSEMIDE 40 MG/4 ML VIAL IVP ONE (03:45)
[2021-07-28] MEDS ORDERED: AZITHROMYCIN 500 MG in DEXTROSE 5% 250 ML IV ONE (03:45)
[2021-07-28] MEDS ORDERED: ALBUTEROL SULFATE/IPRATROPIU 3 ML SOL IH ONE ×2 (03:45→03:48)
[2021-07-28] MEDS ORDERED: MAG SULF 2000 MG/WATER PREMIX 50 ML IV ONE (03:45)
[2021-07-28] MEDS ORDERED: methylPREDNISolone SS 125 MG in WATER STERILE 2 ML IV ONE (03:45)
--- NOTE | 2021-07-28 03:48 | NUR ---
60 yo f biba from home with c/c of sob x2wks. pt reports bilat le edema, nonpitting. +cough +congestion. pt reports 7/10 epigastric pain. hx:copd, chf allergery:pcn, lisinopril
--- NOTE | 2021-07-28 03:48 | NUR ---
rt at bedside.
[2021-07-28] MEDS ORDERED: WATER STERILE 10 ML MC ONE (03:51)
[2021-07-28] MEDS ORDERED: methylPREDNISolone SS 125 MG/2 ML VIAL ONE (03:51)
[2021-07-28] MEDS ORDERED: cefTRIAXone 1,000 MG VIAL ONE (03:52)
[2021-07-28] MEDS ORDERED: LORazepam 2 MG/ML VIAL IVP ONE (04:05)
[2021-07-28] MEDS ORDERED: LORazepam 2 MG/ML VIAL ONE (04:05)
--- NOTE | 2021-07-28 04:25 | NUR ---
labs collected and taken to lab.
--- NOTE | 2021-07-28 04:41 | NUR ---
rt at bedside.
--- NOTE | 2021-07-28 05:12 | NUR ---
pt appears to be resting. eyes are closed opens to sound. vss. pt given warm blanket. bed locked in lowest position, side rails x2 for safety.
[2021-07-28 05:19] LABS: BASOPHILS # (AUTO) 0.1 K/uL (0.00-0.22); BASOPHILS % (AUTO) 1.2 % (0.0-2.0); EOSINOPHILS # (AUTO) 0.1 K/uL (0-0.4); EOSINOPHILS % (AUTO) 1.6 % (0.0-4.0); HEMATOCRIT 39.1 % (36-48); HEMOGLOBIN 12.6 g/dL (12.0-16.0); LYMPHOCYTES # (AUTO) 2.4 K/uL (2.5-16.5); MEAN CORPUSCULAR HEMOGLOBIN 29 pg (27-31); MEAN CORPUSCULAR HGB CONC 32 g/dL (33-37); MEAN CORPUSCULAR VOLUME 89.6 fL (80-94); MONOCYTES # (AUTO) 0.8 K/uL (0.8-1.0); MONOCYTES % (AUTO) 13.4 % (1.7-9.3); NEUTROPHILS # (AUTO) 2.4 K/uL (1.8-7.7); NEUTROPHILS % (AUTO) 41.8 % (42.2-75.2); PLATELET COUNT (AUTO) 210 K/uL (140-450); RED BLOOD CELL COUNT(AUTO) 4.37 MIL/uL (4.20-5.40); RED CELL DISTRIBUTION WIDTH 14.2 % (11.6-13.7); WHITE BLOOD COUNT (AUTO) 5.8 K/uL (4.8-10.8)
--- NOTE | 2021-07-28 05:25 | NUR ---
elevated bp trend reported to . orders carried out.
[2021-07-28 05:28] LABS: ALBUMIN 3.5 g/dL (3.4-5.0); CARBON DIOXIDE 30.4 mmol/L (21-32); CREATININE 1.2 mg/dL (0.6-1.3); POTASSIUM 3.4 mmol/L (3.5-5.1); TOTAL BILIRUBIN 0.4 mg/dL (0.0-1.0)
--- NOTE | 2021-07-28 05:34 | NUR ---
bp orders held per ermd, bp trending down.
[2021-07-28] MEDS ORDERED: ASPIRIN 325 MG TAB PO ONE (05:40)
[2021-07-28] MEDS ORDERED: ENOXAPARIN 80 MG/0.8 ML SYR SUBQ ONE (05:40)
[2021-07-28] MEDS ORDERED: FURO-572 PO (06:09)
[2021-07-28] MEDS ORDERED: METO25TA14 PO (06:09)
--- NOTE | 2021-07-28 06:09 | NUR ---
pt urinated on bed. sheets changed. pt cleaned up and placed in clean dry gown. no wounds present. warm blankets provided.
--- NOTE | 2021-07-28 06:45 | NUR ---
PT APPEARS TO BE RESTING. PT'S EYES ARE CLOSED, OPENS EYES TO SOUND. EQUAL RISE AND FALL OF CHEST WALL. VSS. PT IS IN STABLE CONDITION. ALL NEEDS MET AT THIS TIME. BED LOCKED IN LOWEST POSITION, SIDE RAILS X2 FOR SAFETY.
[2021-07-28] MEDS ORDERED: methylPREDNISolone SS 125 MG/2 ML VIAL IVP ONE (07:15)
--- NOTE | 2021-07-28 07:20 | NUR ---
Pt report given to AYLIN DILLARD. Transfer of care at this time.
--- NOTE | 2021-07-28 07:27 | NUR ---
Pt resting comfortably in bed. Aox4, able to make needs known. Resp even and unlabored on 2LPM VNC. Lung sounds clear/diminished upon auscultation. Abd soft and non-tender to touch. All safety precautions in place. SR up x2. Call light in reach
--- NOTE | 2021-07-28 10:23 | NUR ---
Annalise Villatoro: [phone]. This will be next of kin as Fred had a stroke and would like daughter to be notified of any updates.
--- NOTE | 2021-07-28 10:33 | NUR ---
X-Ray at bedside.
--- NOTE | 2021-07-28 10:35 | NUR ---
PATIENT HAS BEEN SCREENED AND CATEGORIZED MODERATE NUTRITION RISK. PATIENT WILL BE SEEN WITHIN 3-5 DAYS OF ADMISSION. 07/28/21-08/01/[address]
[2021-07-28] MEDS ORDERED: POTASSIUM CHLORIDE 10 MEQ TABER PO PRN (11:55)
[2021-07-28] MEDS ORDERED: MAG SULF 2000 MG/WATER PREMIX 50 ML IV PRN (11:55)
[2021-07-28] MEDS ORDERED: ZOLPIDEM 5 MG TAB PO PRN (12:00)
[2021-07-28] MEDS ORDERED: DOCUSATE SODIUM 100 MG GELCAP PO PRN (12:00)
[2021-07-28] MEDS ORDERED: ONDANSETRON 4 MG/2 ML VIAL IM/IVP PRN (12:00)
--- NOTE | 2021-07-28 12:55 | NUR ---
RECEIVED PHONE REPORT FROM ER. WAITING PATIENT TO TRANSFER TO UNIT.
[2021-07-28] MEDS ORDERED: methylPREDNISolone SS 125 MG/2 ML VIAL IVP SCH (13:00)
--- NOTE | 2021-07-28 13:20 | NUR ---
Patient will be admitted to care of SHANKAR. Admited to TELE. Will go to room 118 . Belongings list completed. Report to EVETTE VIERA.
[2021-07-28 13:39] LABS: MAGNESIUM 2.2 mg/dL (1.8-2.4); THYROID STIMULATING HORMONE 0.13 uIU/mL (0.34-3.74)
[2021-07-28 13:52] LABS: PROTHROMBIN TIME 10.3 secs (10.8-13.4)
[2021-07-28 14:00] VITALS: BP 142/89
--- NOTE | 2021-07-28 14:00 | NUR ---
RECEIVED PATIENT FROM ER. CC SOB, DX CHF, COPD EXACERBATION. PATIENT A/A/O X4. RESPIRATORY EVEN AND UNLABORED, ON 2L OXYGEN VIA NC. NO SIGN OF DISTRESS NOTED. LUNG SOUND CRACKLES ON BILATERAL LOBES. S1 AND S2 NOTED, ON TELE MONITOR. ABDOMINAL SOFT, NON TENDER, BOWEL SOUND ACTIVE TO ALL QUADRANTS. SKIN WARM, DRY, NON DIAPHORETIC. BILATERAL LOWER EXTREMITIES EDEMA NOTED. IV ON RIGHT HAND 24G, INTACT AND PATENT, SALINE LOCK. PATIENT DENIES ANY PAIN OR DISCOMFORT. ABLE TO MAKE NEED KNOWN. PLAN OF CARE DISCUSSED, ORIENT TO ROOM AND UNIT ROUTINE, PATIENT VERBALIZED UNDERSTANDING. MRSA NARES COLLECTED. CALL LIGHT WITHIN REACH. WILL CONTINUE TO MONITOR.
[2021-07-28 16:00] VITALS: BP 134/93
--- NOTE | 2021-07-28 16:32 | NUR ---
PT. WITH LOW ANNEL SCALE AT RISK, CONTINUE TO FOLLOW PRESSURE INJURY PREVENTION INTERVENTIONS. -TURN AND REPOSITION PATIENT Q 2H -INSPECT SKIN UNDER AND AROUND MEDICAL DEVICES. -ASSESS AND MONITOR SKIN CONDITION DURING POSITION CHANGE -OFFLOAD BILATERAL HEELS BY PLACING PILLOWS UNDER CALVES AT ALL TIMES, UNLESS OTHERWISE CONTRAINDICATED -APPLY HEEL PROTECTORS -PRESSURE REDISTRIBUTION SURFACE AND OFFLOADING SACRALCOCCYX -MANAGE FRICTION AND SHEAR BY USING LIFT SHEET TO REPOSITION PATIENT -HOB 30 DEGREE TOLERATE -PLEASE FOLLOW RD RECOMMENDATIONS PLEASE NOTIFIED WOUND CARE NURSE FOR ANY CHANGE OF SKIN CONDITION
[2021-07-28] MEDS: FUROSEMIDE 40 MG/4 ML VIAL IVP SCH (17:22)
[2021-07-28 17:48] LABS: CHOL/HDL RATIO 1.8 (1-4.5)
--- NOTE | 2021-07-28 18:02 | NUR ---
NOTIFIED DR CHAPARRO THAT PATIENT C/O BACK PAIN. PATIENT REFUSED TYLENOL, STATES THAT SHE TAKES MOTRIN OR NORCO FOR BACK PAIN AT HOME. TORB, IBUPROFEN 600 MG PO Q6H PRN FOR PAIN. WILL FOLLOW ORDER.
--- NOTE | 2021-07-28 18:05 | NUR ---
NOTIFY BY SEED PRODUCTION FIELD SUPERVISOR THAT PATIENT HAS 2 SECONDS V-TACH. PATIENT IS AMBULATING TO BATHROOM. DENIES ANY CHEST PAIN OR SOB. PT IS ASYMPTOMATIC. WILL CONTINUE TO MONITOR AND NOTIFY
[2021-07-28] MEDS: IBUPROFEN 600 MG TAB PO PRN (18:16)
--- NOTE | 2021-07-28 19:23 | NUR ---
ENDORSED PT TO PURE CULTURE OPERATOR NURSE FOR CONTINUITY OF CARE. PATIENT IS STABLE.
[2021-07-28 20:00] VITALS: BP 138/85
[2021-07-28] MEDS ORDERED: ATORVASTATIN 20 MG TAB PO SCH (21:00)
[2021-07-28] MEDS: carvediloL 6.25 MG TAB PO SCH (21:30)
[2021-07-28] MEDS: ONDANSETRON 4 MG TAB PO SCH (21:30)
[2021-07-28] MEDS: DOCUSATE SODIUM 100 MG GELCAP PO SCH (21:30)
[2021-07-28] MEDS: traZODone 50 MG TAB PO PRN (21:48)
[2021-07-29] VITALS: BP 127/72
--- NOTE | 2021-07-29 | NUR ---
SLEEPING , AWAKEABLE , ON TELE MONITOR
[2021-07-29 04:00] VITALS: BP 122/85
[2021-07-29] MEDS ORDERED: cefTRIAXone 1,000 MG VIAL ONE (04:17)
--- NOTE | 2021-07-29 04:30 | NUR ---
ROUNDS , C/O ALAS - WILL MEDICATE BP WNL .- ON AT 2LPM/NC - O2 SAT WNL .
[2021-07-29] MEDS: IBUPROFEN 600 MG TAB PO PRN ×3 (05:01→19:42)
--- NOTE | 2021-07-29 06:00 | NUR ---
AWAKE , O2 SAT WNL . WILL CONT. TO MONITOR .
[2021-07-29 07:08] LABS: T4 (THYROXINE) 6.2 ug/dL (4.5-12.0)
--- NOTE | 2021-07-29 07:35 | NUR ---
ENDORSED - PT -STABLE .
--- NOTE | 2021-07-29 07:35 | NUR ---
REPORT RECEIVED FROM PM SHIFT AYLIN SHIN FOR CONTINUITY OF CARE. PT. ALERT, STABLE. NO RESP. DISTTRESS NOTED. ALL SAFETY MEASURES IN PLACE . WILL CONTINUE TO MONITOR THE PT.
[2021-07-29 07:49] LABS: BASOPHILS % (AUTO) 0.2 % (0.0-2.0); HEMATOCRIT 35.7 % (36-48); HEMOGLOBIN 11.7 g/dL (12.0-16.0); LYMPHOCYTES # (AUTO) 1.1 K/uL (2.5-16.5); MEAN CORPUSCULAR HEMOGLOBIN 29 pg (27-31); MEAN CORPUSCULAR HGB CONC 33 g/dL (33-37); MEAN CORPUSCULAR VOLUME 88.7 fL (80-94); MONOCYTES # (AUTO) 1.3 K/uL (0.8-1.0); MONOCYTES % (AUTO) 13.4 % (1.7-9.3); NEUTROPHILS % (AUTO) 74.4 % (42.2-75.2); PLATELET COUNT (AUTO) 208 K/uL (140-450); RED BLOOD CELL COUNT(AUTO) 4.02 MIL/uL (4.20-5.40); RED CELL DISTRIBUTION WIDTH 14.4 % (11.6-13.7); WHITE BLOOD COUNT (AUTO) 9.4 K/uL (4.8-10.8)
[2021-07-29 07:54] LABS: ANION GAP 11.4 (8-16); CARBON DIOXIDE 28.6 mmol/L (21-32); CREATININE 1.1 mg/dL (0.6-1.3)
[2021-07-29 08:00] VITALS: BP 128/91
[2021-07-29 08:07] LABS: MAGNESIUM 2.1 mg/dL (1.8-2.4); PHOSPHORUS 4.9 mg/dL (2.5-4.9)
[2021-07-29] MEDS ORDERED: LOSARTAN 25 MG TAB PO SCH (09:00)
[2021-07-29] MEDS ORDERED: ASPIRIN 81 MG TAB.CHEW PO SCH (09:00)
[2021-07-29] MEDS ORDERED: carvediloL 6.25 MG TAB PO SCH (09:00)
[2021-07-29] MEDS ORDERED: SPIRONOLACTONE 25 MG TAB PO SCH (09:00)
[2021-07-29] MEDS ORDERED: FUROSEMIDE 40 MG TAB PO SCH (09:00)
[2021-07-29] MEDS: ECOTRIN 81 MG TABEC PO SCH (09:46)
[2021-07-29] MEDS: PANTOPRAZOLE 40 MG TABEC PO SCH (09:46)
[2021-07-29] MEDS: DOCUSATE SODIUM 100 MG GELCAP PO SCH ×2 (09:46→20:22)
[2021-07-29] MEDS: SPIRONOLACTONE 25 MG TAB PO SCH (09:47)
[2021-07-29] MEDS: ESCITALOPRAM 20 MG TAB PO SCH (09:48)
[2021-07-29] MEDS: ONDANSETRON 4 MG TAB PO SCH ×2 (09:48→20:23)
[2021-07-29] MEDS: LOSARTAN 25 MG TAB PO SCH (09:49)
[2021-07-29] MEDS: carvediloL 6.25 MG TAB PO SCH ×2 (09:49→20:23)
[2021-07-29] MEDS: ATORVASTATIN 20 MG TAB PO SCH (09:49)
[2021-07-29] MEDS: LORATADINE 10 MG TAB PO SCH (09:50)
[2021-07-29] MEDS: FUROSEMIDE 40 MG/4 ML VIAL IVP SCH ×2 (09:51→17:42)
[2021-07-29] MEDS: AZITHROMYCIN 250 MG TAB PO SCH (09:54)
--- NOTE | 2021-07-29 10:00 | NUR ---
PT. LYING IN THE BED COMFORTABLY. NO RESP. DISTRESS NOTED . BREATHING EVEN AND UNLABORED. SAFETY MEASURES ION PLACE. ADMINISTRED DUE MEDICATIONS. PT. TOLERATED WELL. WILL CONTINUE TO MONITOR THE PT.
--- NOTE | 2021-07-29 11:27 | NUR ---
PT. C/O LOWER BACK PAIN. 08/17. ACHING. MEDICATED WITH PAIN MED. MOTRIN. WILL REASSESS FOR PAIN ANFD CONTINUE TO MONITOR THE PT.
[2021-07-29 12:00] VITALS: BP 117/79
--- NOTE | 2021-07-29 12:17 | NUR ---
NOTIFIED DR. CHAPARRO RE. PT. REQUESTING ANTIANXIETY MEDICATION AND STRONGER PAIN MEDICATION. MD SAID SHE WILL REFER PSYCHIATRY DR. FOR ANXIETY . WILL FOLLOW UP WITH MD CORRIGAN.
[2021-07-29] MEDS: ACETAMINOPHEN 325 MG TAB PO PRN (14:47)
[2021-07-29] MEDS: methylPREDNISolone SS 40 MG/ML VIAL IVP SCH ×2 (14:48→20:22)
--- NOTE | 2021-07-29 14:48 | NUR ---
PT. C/O OF HEADACHE .08/17. MEDICATED WITH TYLENOL PRN ORDER. WILL REASSESS FOR PAIN FOR EFFECTIVENESS. AND CONTINUE TO MONITOR THE PT.
[2021-07-29 16:00] VITALS: BP 134/71
--- NOTE | 2021-07-29 17:26 | NUR ---
PT. COMFORTABLY RESTING IN THE BED. NO RESP. DISTRESS OBSERVED. NO C/O OF OPAIN AT THIS TIME. ALL SAFETY MEASURES IN PLACE. CALL LIGHT WITHIN REACH. WILL CONTINUE TO MONITOR THE PT.
--- NOTE | 2021-07-29 19:00 | NUR ---
PT. COMFORTABLY SLEEPING. WITHOUT ANY DISTRESS. STABLE. WILL ENDORSE TO PM SHIFT RN FOR CONTINUITY OF CARE.
--- NOTE | 2021-07-29 19:30 | NUR ---
RECEIVED BEDSIDE REPORT FROM DAY SHIFT NURSE FOR CONTINUITY OF CARE. PT AWAKE, ALERT AND ORIENTED. ON 2L NC. BREATHING EQUAL AND UNLABORED. AFEBRILE. IV ON LEFT HAND G24 ON SL. ALL PRECAUTIONS IN PLACE.CALL LIGHT WITHIN REACH. WILL CONTINUE TO MONITOR.
[2021-07-29 20:00] VITALS: BP 132/85
[2021-07-29] MEDS: traZODone 50 MG TAB PO PRN (20:23)
--- NOTE | 2021-07-29 21:00 | NUR ---
SCHEDULED MEDICATIONS GIVEN. PT TOLERATED WELL. WILL CONTINUE TO MONITOR.
--- NOTE | 2021-07-29 22:58 | NUR ---
PT SLEEPING WITHOUT ANY DISTRESS. BREATHING EQUAL AND UNLABORED. WILL CONTINUE TO MONITOR.
[2021-07-30] VITALS: BP 128/76
--- NOTE | 2021-07-30 00:32 | NUR ---
PT ASLEEP. VISIBLE CHEST RISE AND FALL NOTED. NO S/SX OF DISTRESS. ALL PRECAUTIONS IN PLACE.WILL CONTINUE TO MONITOR.
--- NOTE | 2021-07-30 02:30 | NUR ---
SCHEDULED MEDICATIONS GIVEN. PT TOLERATED WELL. WILL CONTINUE TO MONITOR.
[2021-07-30] MEDS: ACETAMINOPHEN 325 MG TAB PO PRN ×3 (02:31→21:36)
[2021-07-30 04:00] VITALS: BP 118/64
[2021-07-30] MEDS: methylPREDNISolone SS 40 MG/ML VIAL IVP SCH ×3 (04:53→21:37)
--- NOTE | 2021-07-30 05:00 | NUR ---
SCHEDULED MEDICATIONS GIVEN. PT TOLERATED WELL. WILL CONTINUE TO MONITOR.
[2021-07-30] MEDS: IBUPROFEN 600 MG TAB PO PRN ×2 (06:38→14:20)
--- NOTE | 2021-07-30 06:40 | NUR ---
PT IS STABLE. NO ACUTE EVENTS THROUGHOUT THE NIGHT. NO S/SX OF DISTRESS. NO OTHER COMPLAINS AT THIS TIME. ALL NEEDS ATTENDED. ALL PRECAUTIONS IN PLACE. WILL ENDORSE TO DAY SHIFT NURSE.
--- NOTE | 2021-07-30 07:25 | NUR ---
RECEIVED REPORT FROM PM SHIFT AYLIN LOUIS FOR CONTINUITY OF CARE. PT. COMFORTABLY SLEEPING. NO ACUTE DISTRESS NOTED. SAFETY MEASURES IN PLACE. WILL CONTINUE TO MONITOR THE PT.
[2021-07-30 07:34] LABS: BASOPHILS % (AUTO) 0.1 % (0.0-2.0); HEMATOCRIT 34.2 % (36-48); HEMOGLOBIN 11.3 g/dL (12.0-16.0); LYMPHOCYTES # (AUTO) 0.8 K/uL (2.5-16.5); LYMPHOCYTES % (AUTO) 10.6 % (20.5-51.1); MEAN CORPUSCULAR HEMOGLOBIN 29 pg (27-31); MEAN CORPUSCULAR HGB CONC 33 g/dL (33-37); MEAN CORPUSCULAR VOLUME 88.3 fL (80-94); MONOCYTES # (AUTO) 0.4 K/uL (0.8-1.0); MONOCYTES % (AUTO) 5.3 % (1.7-9.3); NEUTROPHILS # (AUTO) 6.8 K/uL (1.8-7.7); PLATELET COUNT (AUTO) 210 K/uL (140-450); RED BLOOD CELL COUNT(AUTO) 3.88 MIL/uL (4.20-5.40)
[2021-07-30 07:42] LABS: ANION GAP 12.9 (8-16); POTASSIUM 3.9 mmol/L (3.5-5.1)
[2021-07-30 07:55] LABS: MAGNESIUM 2.1 mg/dL (1.8-2.4); PHOSPHORUS 4.2 mg/dL (2.5-4.9)
[2021-07-30 08:00] VITALS: BP 119/68
[2021-07-30] MEDS: FUROSEMIDE 40 MG/4 ML VIAL IVP SCH ×2 (09:23→17:20)
[2021-07-30] MEDS: LOSARTAN 25 MG TAB PO SCH (09:24)
[2021-07-30] MEDS: PANTOPRAZOLE 40 MG TABEC PO SCH (09:24)
[2021-07-30] MEDS: ECOTRIN 81 MG TABEC PO SCH (09:24)
[2021-07-30] MEDS: ATORVASTATIN 20 MG TAB PO SCH (09:24)
[2021-07-30] MEDS: SPIRONOLACTONE 25 MG TAB PO SCH (09:25)
[2021-07-30] MEDS: ONDANSETRON 4 MG TAB PO SCH ×2 (09:26→21:37)
[2021-07-30] MEDS: ESCITALOPRAM 20 MG TAB PO SCH (09:26)
[2021-07-30] MEDS: LORATADINE 10 MG TAB PO SCH (09:27)
[2021-07-30] MEDS: carvediloL 6.25 MG TAB PO SCH ×2 (09:27→21:41)
[2021-07-30] MEDS: AZITHROMYCIN 250 MG TAB PO SCH (09:27)
[2021-07-30] MEDS: DOCUSATE SODIUM 100 MG GELCAP PO SCH ×2 (09:28→21:37)
--- NOTE | 2021-07-30 10:00 | NUR ---
ADMINISTERED SCHEDULED MEDICATIONS ORDER. PT. TOLERATED WELL. PT. ALERT, STABLE. NO DISTRESS NOTED. ALL SAFETY MEASURES IN PLACE. WILL CONTINUE TO MONITOR THE PT.
--- NOTE | 2021-07-30 11:40 | NUR ---
ADMINISTERED TYLENOL PAIN MEDICATION FOR PT. C/O HEADCH. 08/17. WILL MONITOR FOR EFFECTIVENESS.
[2021-07-30 12:00] VITALS: BP 147/81
--- NOTE | 2021-07-30 13:43 | NUR ---
PT. RESTING IN TTHE BED. ALERT, ORIENTED. STABLE. V/S WNL. NO ANY ACUTE DISTRESS NOTED. WILL CONTINUE TO MONITOR THE PT.
[2021-07-30 16:00] VITALS: BP 133/91
--- NOTE | 2021-07-30 18:04 | NUR ---
PT. ALERT, AWAKE. STABLE. NO RESP. DISTRESS NOTED. DENIES PAIN OR DISCOMFORT. CALL LIGHT WITHIN REACH. WILL CONTINUE TO MONITOR THE PT.
--- NOTE | 2021-07-30 19:16 | NUR ---
ENDORSED REPORT TO PM SHIFT RN FOR CONTINUITY OF CARE. PT. STABLE.
[2021-07-30 20:00] VITALS: BP 129/96
[2021-07-30] MEDS: traZODone 50 MG TAB PO PRN (21:37)
[2021-07-31] VITALS: BP 142/86
[2021-07-31 04:00] VITALS: BP 133/92
[2021-07-31] MEDS: methylPREDNISolone SS 40 MG/ML VIAL IVP SCH (04:02)
[2021-07-31] MEDS: IBUPROFEN 600 MG TAB PO PRN (04:03)
--- NOTE | 2021-07-31 07:30 | NUR ---
REPORT RECEIVED FROM PM SHIFT, PT STABLE, AOX4, VSS, NO ACUTE DISTRESS, SAFETY MEASURES MAINTAINED, WILL CONTINUE TO MONITOR
[2021-07-31 08:00] VITALS: BP 132/88
[2021-07-31] MEDS: FUROSEMIDE 40 MG/4 ML VIAL IVP SCH (08:24)
[2021-07-31] MEDS: ATORVASTATIN 20 MG TAB PO SCH (08:24)
[2021-07-31] MEDS: carvediloL 6.25 MG TAB PO SCH (08:24)
[2021-07-31] MEDS: ONDANSETRON 4 MG TAB PO SCH (08:24)
[2021-07-31] MEDS: DOCUSATE SODIUM 100 MG GELCAP PO SCH (08:25)
[2021-07-31] MEDS: LOSARTAN 25 MG TAB PO SCH (08:25)
[2021-07-31] MEDS: AZITHROMYCIN 250 MG TAB PO SCH (08:25)
[2021-07-31] MEDS: ESCITALOPRAM 20 MG TAB PO SCH (08:25)
[2021-07-31] MEDS: PANTOPRAZOLE 40 MG TABEC PO SCH (08:25)
[2021-07-31] MEDS: ECOTRIN 81 MG TABEC PO SCH (08:26)
[2021-07-31] MEDS: LORATADINE 10 MG TAB PO SCH (08:26)
[2021-07-31] MEDS: SPIRONOLACTONE 25 MG TAB PO SCH (08:26)
[2021-07-31 08:28] LABS: BASOPHILS % (AUTO) 0.2 % (0.0-2.0); HEMATOCRIT 35.2 % (36-48); HEMOGLOBIN 11.6 g/dL (12.0-16.0); LYMPHOCYTES # (AUTO) 0.9 K/uL (2.5-16.5); MEAN CORPUSCULAR HEMOGLOBIN 29 pg (27-31); MEAN CORPUSCULAR HGB CONC 33 g/dL (33-37); MEAN CORPUSCULAR VOLUME 87.8 fL (80-94); MONOCYTES # (AUTO) 0.4 K/uL (0.8-1.0); MONOCYTES % (AUTO) 6.2 % (1.7-9.3); NEUTROPHILS # (AUTO) 5.3 K/uL (1.8-7.7); NEUTROPHILS % (AUTO) 80.6 % (42.2-75.2); PLATELET COUNT (AUTO) 207 K/uL (140-450); RED CELL DISTRIBUTION WIDTH 14.2 % (11.6-13.7); WHITE BLOOD COUNT (AUTO) 6.6 K/uL (4.8-10.8)
[2021-07-31 08:54] LABS: ANION GAP 10.5 (8-16); CARBON DIOXIDE 30.4 mmol/L (21-32); POTASSIUM 3.9 mmol/L (3.5-5.1)
[2021-07-31] MEDS ORDERED: SPIR25TA PO (09:01)
[2021-07-31] MEDS ORDERED: ATOR20TA40 PO (09:01)
[2021-07-31] MEDS ORDERED: FURO-570 PO (09:01)
[2021-07-31] MEDS ORDERED: LOSA25TA43 PO (09:01)
[2021-07-31] MEDS ORDERED: ASPI81CT95 PO (09:01)
[2021-07-31] MEDS ORDERED: FURO-572 PO (09:01)
[2021-07-31] MEDS ORDERED: CARV6.25 PO (09:01)
[2021-07-31 09:06] LABS: MAGNESIUM 2.2 mg/dL (1.8-2.4); PHOSPHORUS 3.1 mg/dL (2.5-4.9)
[2021-07-31] MEDS ORDERED: LORA-476 PO (09:07)
--- NOTE | 2021-07-31 10:30 | NUR ---
PTS FAMILY UPDATED ON POC, QUESTIONS ANSWERED, PT PENDING RIDE HOME FOR DC
--- NOTE | 2021-07-31 11:02 | NUR ---
PT STABLE FOR DC, NO ACUTE DISTRESS, SAFETY MEASURES MAINTAINED, DISCHARGE EDUCATION PROVIDED TO PATIENT AND FAMILY, FAMILY UPDATED ON POC, IV REMOVED, PT AMBULATING WITH STEADY GAIT, DC'D HOME WITH DAUGHTER
== END 2021-07-31 11:00 | disposition home or self-care (01) | DRG 280 ==
LOC: MED 03:35 → MTU 07:14
DX: I11.0 Hypertensive heart disease with heart failure (principal); I21.A1 Myocardial infarction type 2; I50.43 Acute on chronic combined systolic (congestive) and diastolic (congestive) heart failure; J96.01 Acute respiratory failure with hypoxia; J44.1 Chronic obstructive pulmonary disease with (acute) exacerbation; E11.9 Type 2 diabetes mellitus without complications; E78.5 Hyperlipidemia, unspecified; K21.9 Gastro-esophageal reflux disease without esophagitis; F17.210 Nicotine dependence, cigarettes, uncomplicated; F32.A Depression, unspecified; E87.6 Hypokalemia; I42.9 Cardiomyopathy, unspecified; Z20.822 Contact with and (suspected) exposure to COVID-19; F19.10 Other psychoactive substance abuse, uncomplicated; Z88.0 Allergy status to penicillin; Z88.8 Allergy status to other drugs, medicaments and biological substances; Z79.82 Long term (current) use of aspirin; Z79.899 Other long term (current) drug therapy; Z82.49 Family history of ischemic heart disease and other diseases of the circulatory system; Z82.3 Family history of stroke; Z91.14 Patient's other noncompliance with medication regimen
CPT/HCPCS: 36415; 71045; 80048; 80053; 83036; 83605; 83735; 83880; 84100; 84134; 84436; 84443; 84484; 85025; 85610; 85730; 87040; 87081; 94640; 96365; 96367; 96372; 96375; 99291; J0696; J1644; J1650; J1940; J2060; J2920; J2930; J3475; J7060; Q0162

== ENCOUNTER 2021-08-14 22:54 | Inpatient (IN) | payer OTHER, SELFPAY ==
[~2021-08-14] VITALS: Ht 157.5 cm; Wt 83.0 kg
[~2021-08-14 22:54] MED LIST changes: +FURO-572 PO; +LORA-476 PO
[2021-08-14 23:11] VITALS: BP 145/90
[2021-08-14 23:50] LABS: HEMOGLOBIN 12.1 g/dL (12.0-16.0)
[2021-08-15 00:01] LABS: BASOPHILS # (AUTO) 0.1 K/uL (0.00-0.22); EOSINOPHILS # (AUTO) 0.1 K/uL (0-0.4); EOSINOPHILS % (AUTO) 2.2 % (0.0-4.0); HEMATOCRIT 36.5 % (36-48); LYMPHOCYTES # (AUTO) 2.1 K/uL (2.5-16.5); LYMPHOCYTES % (AUTO) 42.7 % (20.5-51.1); MEAN CORPUSCULAR HEMOGLOBIN 29 pg (27-31); MEAN CORPUSCULAR HGB CONC 33 g/dL (33-37); MEAN CORPUSCULAR VOLUME 88.6 fL (80-94); MONOCYTES # (AUTO) 0.6 K/uL (0.8-1.0); MONOCYTES % (AUTO) 12.5 % (1.7-9.3); NEUTROPHILS # (AUTO) 2.1 K/uL (1.8-7.7); NEUTROPHILS % (AUTO) 41.6 % (42.2-75.2); PLATELET COUNT (AUTO) 242 K/uL (140-450); RED BLOOD CELL COUNT(AUTO) 4.12 MIL/uL (4.20-5.40); RED CELL DISTRIBUTION WIDTH 14.5 % (11.6-13.7)
[2021-08-15 00:13] LABS: ALBUMIN 3.1 g/dL (3.4-5.0); ANION GAP 10.4 (8-16); CREATININE 0.9 mg/dL (0.6-1.3); POTASSIUM 3.4 mmol/L (3.5-5.1); TOTAL BILIRUBIN 0.3 mg/dL (0.0-1.0)
[2021-08-15] MEDS ORDERED: ACETAMINOPHEN EXTRA STRENGTH 500 MG TAB PO ONE (00:40)
[2021-08-15] MEDS ORDERED: ALBUTEROL 0.083% 2.5 MG/3 ML NEBU INH ONE (00:40)
--- NOTE | 2021-08-15 00:54 | NUR ---
PATIENT TO CHB
[2021-08-15] MEDS ORDERED: FUROSEMIDE 40 MG/4 ML VIAL IVP ONE (01:15)
[2021-08-15] MEDS ORDERED: BUMETANIDE 1 MG TAB PO ONE (01:25)
--- NOTE | 2021-08-15 01:40 | NUR ---
60 YO/F BIB SELF W C/O COPD EXACERBATION OF SOB AND CHEST PAIN PRESSURE LIKE 12/17 NON-RAD X APPROX7 HOURS. PT DENIES ANY FEVERS, N/V/D/C. PT JUST HAD BREATHING TRT REPORTS FEELING SLIGHTLY BETTER BUT STILL EXPERIENCING SOB, AND CHEST PAIN (ERMD AWARE). PT O2 SAT 99% ON RA. PT SITTING IN CHAIR B.BREATHING EVEN AND UNLABORED. ONGOING RHONCI. VSS. NAD NOTED, WILL CONTINUE TO MONITOR. PMH: CHF, COPD, HTN, STROKE, ANXIETY ALLERGIES: PENICILLIN, LISINOPRIL
[2021-08-15] MEDS ORDERED: ASPIRIN 325 MG TAB PO ONE (02:00)
--- NOTE | 2021-08-15 02:12 | NUR ---
DIAMOND SWAB COLLECTED FROM PT NARES AND SENT TO LAB.
[2021-08-15] MEDS ORDERED: ACETAMINOPHEN 325 MG TAB PO ONE (02:30)
--- NOTE | 2021-08-15 02:50 | NUR ---
PATIENT MOVED TO BED 9 AMBULATORY
--- NOTE | 2021-08-15 03:03 | NUR ---
Pt report given to AYLIN CLAIRE. Transfer of care at this time.
[2021-08-15] MEDS ORDERED: ASPIRIN 325 MG TAB ONE (03:32)
--- NOTE | 2021-08-15 07:14 | NUR ---
HANDOFF TO AYLIN GALLOWAY. PT ON MONITOR WITH VSS. PT SLEEPING, AROUSABLE. BED LOCK AND LOW, SIDE RAILS UP, CALL LIGHT WITHIN REACH. PT IS CONTINENT AND AMBULATORY.
--- NOTE | 2021-08-15 07:15 | NUR ---
RECEIVED PT IN [facility] AOX4. DENIES PAIN OR DISCOMFORT. NSR ON MONITOR. IV INTACT AND PATENT SL. BRAETHING UNLABORED SPEAKING IN FULL SENTENCES. NAD. SAFETY MAINTAINED.
[2021-08-15 07:59] LABS: BASOPHILS # (AUTO) 0.1 K/uL (0.00-0.22); BASOPHILS % (AUTO) 1.3 % (0.0-2.0); EOSINOPHILS # (AUTO) 0.1 K/uL (0-0.4); EOSINOPHILS % (AUTO) 2.6 % (0.0-4.0); HEMATOCRIT 37.9 % (36-48); HEMOGLOBIN 12.2 g/dL (12.0-16.0); LYMPHOCYTES # (AUTO) 1.8 K/uL (2.5-16.5); LYMPHOCYTES % (AUTO) 40.7 % (20.5-51.1); MEAN CORPUSCULAR HEMOGLOBIN 29 pg (27-31); MEAN CORPUSCULAR HGB CONC 32 g/dL (33-37); MEAN CORPUSCULAR VOLUME 89.8 fL (80-94); MONOCYTES # (AUTO) 0.8 K/uL (0.8-1.0); MONOCYTES % (AUTO) 16.9 % (1.7-9.3); NEUTROPHILS # (AUTO) 1.8 K/uL (1.8-7.7); NEUTROPHILS % (AUTO) 38.5 % (42.2-75.2); PLATELET COUNT (AUTO) 222 K/uL (140-450); RED BLOOD CELL COUNT(AUTO) 4.22 MIL/uL (4.20-5.40); RED CELL DISTRIBUTION WIDTH 14.9 % (11.6-13.7); WHITE BLOOD COUNT (AUTO) 4.6 K/uL (4.8-10.8)
[2021-08-15 08:00] VITALS: BP 145/101
--- NOTE | 2021-08-15 08:00 | NUR ---
BEDSIDE REPORT GIVEN TO MARILYNN VIERA FOR CONTINUATION OF CARE
--- NOTE | 2021-08-15 08:00 | NUR ---
RECEIVED PT FROM SHIP CLEANER, NILESH, PT IS ALERT AND ORIENTED, AWAKE, ON ROOM AIR, AMBULATED TO THE BED FROM [facility], IV LINE NOTED ON THE LAC G. 18 ON SALINE LOCK, PT DENIES CHEST PAIN ANO SIGN OF DISTRESS NOTED. WILL CONTINUE TO MONITOR PT.
[2021-08-15 08:25] LABS: ALBUMIN 2.9 g/dL (3.4-5.0); CARBON DIOXIDE 27.4 mmol/L (21-32); CREATININE 0.8 mg/dL (0.6-1.3); POTASSIUM 3.4 mmol/L (3.5-5.1); TOTAL BILIRUBIN 0.6 mg/dL (0.0-1.0)
[2021-08-15] MEDS: FUROSEMIDE 40 MG/4 ML VIAL IVP SCH ×2 (09:14→21:31)
[2021-08-15] MEDS: ACETAMINOPHEN 325 MG TAB PO PRN (10:44)
[2021-08-15] MEDS ORDERED: SIMETHICONE 180 MG PO SCH (11:10)
[2021-08-15] MEDS: LORazepam 1 MG TAB PO PRN ×2 (11:51→21:49)
--- NOTE | 2021-08-15 13:00 | NUR ---
PT IS SLEEPING NOW, NO SIGN OF DISTRESS NOTED.
--- NOTE | 2021-08-15 14:41 | NUR ---
DC [age]YRS OLD FEMALE PATIENT WAS ADMITTED FROM HOME WITH A DX OF CHF EXACERBATION, ELEVATED TROPONIN. PT HAS A HX OF CHF, HTN, SEIZURE, GERD, METH USE AND CVA. CXR SHOWED CARDIOMEGALY WITH POSSIBLE MILD INTERSTITIAL EDEMA. RAPID COVID TEST NEGATIVE. TROP 0.903, 0.680. ADMINISTERED ACS PROTOCOL AND CONTINUED HOME MEDS. CONSULTED WITH MOVEMAN. DC PLAN TO GO HOME WHEN STABLE. CM TO FOLLOW. Addendum: 08/17/21 at 1714 by Pamela CLOUD DISCHARGE PLANING PATIENT IS A 60-YEAR-OLD FEMALE ADMITTED AT [facility]/ED ON 08/15/2021 DUE TO SHORTNESS OF BREATH WITH CHEST TIGHTNESS. PATIENT HAS HX. OF COPD, CHF, HAS SEVERAL PAST ADMISSIONS. SW MEET WITH PATIENT AT BED SIDE TO DISCUSS AND GATHER PATIENTS COLLATERAL INFORMATION. PER PATIENT SHE LIVES AT HOME WITH HER . ACCORDING TO PATIENT SHE HAS A FAMILY SUPPORT SYSTEM FROM HER ADULT DAUGHTER [employer]. PATIENT REPORTED NOT HAVING A.D. AND DECLINED INFORMATION PACKET PROVIDED BY THESE LINTING MACHINE OPERATOR. PATIENT REPORTED THAT SHE HAS HER MER MUNROE HIS EMERGENCY CONTACT; AND MEDICAL DECISION MAKER. PATIENT STATED HAVING A PCP AND IS FOLLOWING UP WITH JESU AQUINO [place] LAST VISIT WAS ABOUT 3 WEEKS AGO, [place] INFORMED PATIENT THAT A FOLLOW UP APPOINTMENT WILL BE SCHEDULED FOR HER FOR AFTER HER DISCHARGE FROM [facility]. PATIENT STATED " THANK YOU BUT ILL MAKE MY OWN APPOINTMENT; I DONT WANT YOU TO MAKE THE FOLLOW UP APPT. PATIENT REPORTED NOT HAVING ANY ISSUES GETTING OR TAKING HER MEDICATIONS THAT USUALLY GETS FROM [facility] IN [place]. PATIENT ALSO REPORTED BEEN INDEPENDENT AND NOT NEEDING OF ANY DME AT HOME. PATIENT STATED THAT SHE WILL BE RETURNING HOME AFTER SHE IS DC FROM [facility] PER PATIENT HER OR DAUGHTER WILL BE PICKING HER UP AND TAKE HOME. SW WILL FOLLOW UP WITH PATIENT NEEDED.
[2021-08-15] MEDS ORDERED: POTASSIUM CHLORIDE 10 MEQ TABER PO SCH (15:00)
--- NOTE | 2021-08-15 15:15 | NUR ---
PATIENT HAS BEEN SCREENED AND CATEGORIZED MODERATE NUTRITION RISK. PATIENT WILL BE SEEN WITHIN 3-5 DAYS OF ADMISSION. [address]
[2021-08-15 16:00] VITALS: BP 142/100
[2021-08-15 18:20] LABS: BARBITURATE, URINE NEGATIVE ng/ml (NEG <=200); BENZODIAZEPINE, URINE POSITIVE ng/mL (NEG <=200); CANNABINOID, URINE POSITIVE ng/mL (NEG <=50); COCAINE, URINE NEGATIVE ng/mL (NEG <=300); OPIATE, URINE NEGATIVE ng/mL (NEG <=2000); PHENCYCLIDINE SCREEN,URINE NEGATIVE ng/mL (NEG <=25)
--- NOTE | 2021-08-15 19:30 | NUR ---
ENDORSED PT TO NIGHT RN FOR CONTINUITY OF CARE, PT IS TABLE AT THIS TIME AND IS STILL EATING HER DINNER.
--- NOTE | 2021-08-15 19:40 | NUR ---
RECEIVED BEDSIDE REPORT FROM DAY SHIFT NURSE . POC DISCUSSED FOR CONTINUITY OF CARE. PT IS AWAKE , A&OX4. JUST FINISHED DINNER. O2 2L/NC WITH BREATHING UNLABORED. AMBULATORY INDEPENDENTLY. SKIN IS WARM ,DRY &INTACT. LAC 18G SALINE LOCKED. PT IS STABLE.
[2021-08-15 20:00] VITALS: BP 135/90
[2021-08-15] MEDS ORDERED: ONDANSETRON 4 MG TAB PO SCH (21:00)
--- NOTE | 2021-08-15 21:00 | NUR ---
HS MEDS TAKEN WITHOUT DIFFICULTY. PT IS RESTLESS, AGITATED. "I NEED MY ATIVAN." ATIVAN 1MG GIVEN AT 2200.
[2021-08-15] MEDS: carvediloL 6.25 MG TAB PO SCH (21:32)
[2021-08-15] MEDS: ATORVASTATIN 20 MG TAB PO SCH (21:33)
[2021-08-15] MEDS: DOCUSATE SODIUM 100 MG GELCAP PO SCH (21:33)
--- NOTE | 2021-08-15 22:30 | NUR ---
PT DROWSY. RR 18 AND UNLABORED. NAD. CALL LIGHT WITHIN REACH.
[2021-08-16] VITALS: BP 107/77
[2021-08-16 04:00] VITALS: BP 109/75
--- NOTE | 2021-08-16 04:30 | NUR ---
PT SLEEPING . VSS AFEBRILE. ALL SAFETY MEASURES IN PLACE.
--- NOTE | 2021-08-16 07:15 | NUR ---
RECEIVED BEDSIDE REPORT FROM RUG DRY ROOM ATTENDANT NURSE FOR CONTINUITY OF CARE. PT IS AWAKE AND ALERT. A&OX4. ON 2L O2 NC WITH BREATHING UNLABORED. AMBULATORY INDEPENDENTLY. SKIN IS WARM, DRY, AND INTACT. LEFT AC 18 GAUGE SALINE LOCKED. PT IS STABLE. PLAN OF CARE DISCUSSED.
[2021-08-16 08:00] VITALS: BP 130/95
[2021-08-16] MEDS: ASPIRIN 81 MG TAB.CHEW PO SCH (09:08)
[2021-08-16] MEDS: LORATADINE 10 MG TAB PO SCH (09:09)
[2021-08-16] MEDS: FUROSEMIDE 40 MG/4 ML VIAL IVP SCH ×3 (09:09→21:33)
[2021-08-16] MEDS: SPIRONOLACTONE 25 MG TAB PO SCH (09:09)
[2021-08-16] MEDS: ESCITALOPRAM 20 MG TAB PO SCH (09:10)
[2021-08-16] MEDS: DOCUSATE SODIUM 100 MG GELCAP PO SCH ×2 (09:10→21:33)
[2021-08-16] MEDS: PANTOPRAZOLE 40 MG TABEC PO SCH (09:10)
[2021-08-16] MEDS: LORazepam 1 MG TAB PO PRN (09:16)
--- NOTE | 2021-08-16 09:16 | NUR ---
PT APPEARED VERY ANXIOUS AND PT STATED SHE WAS FEELING LIKE SHE WAS HAVING AN ANXIETY ATTACK. PT WAS GIVEN ATIVAN FOR ANXIETY. BP WAS STABLE PRIOR TO ADMINISTRATION OF MEDICATION. WILL MONITOR.
[2021-08-16] MEDS: LOSARTAN 25 MG TAB PO SCH (10:05)
[2021-08-16] MEDS: carvediloL 6.25 MG TAB PO SCH ×2 (10:05→21:33)
--- NOTE | 2021-08-16 11:17 | NUR ---
PT REQUESTED DIET SODA AND WAS PROVIDED SODA AND A SNACK. PT IS BACK TO SLEEP. DENIED ANY ANXIETY OR DISTRESS.
[2021-08-16 12:00] VITALS: BP 122/74
--- NOTE | 2021-08-16 13:07 | NUR ---
PT IS RESTING IN SEMI FOWLERS POSITION. BREATHING IS UNLABORED ON 2L O2 NC. NO DISTRESS OR ANXIETY NOTED. PT IS STABLE. IV IS INTACT AND IN PLACE.
[2021-08-16 16:00] VITALS: BP 126/80
--- NOTE | 2021-08-16 16:00 | NUR ---
ROUNDED ON PT. SHE IS SITTING UP IN BED WITH NO DISTRESS NOTED. BREATHING IS UNLABORED ON 2L O2 NC. IV IS IN PLACE. PT IS STABLE.
--- NOTE | 2021-08-16 18:30 | NUR ---
PT IS STABLE. NO DISTRESS NOTED. SHE SAYS SHES OKAY RIGHT NOW. FOOD AT THE BEDSIDE BUT PT STATES HER DAUGHTER WILL BRING HER DINNER.
--- NOTE | 2021-08-16 19:11 | NUR ---
ENDORSED PT TO ENVIRONMENTAL SAMPLER NURSE FOR CONTINUITY OF CARE. PT IS STABLE. PLAN OF CARE DISCUSSED.
[2021-08-16 20:00] VITALS: BP 115/73
[2021-08-16] MEDS: ATORVASTATIN 20 MG TAB PO SCH (21:33)
[2021-08-16] MEDS: ACETAMINOPHEN 325 MG TAB PO PRN (21:36)
[2021-08-16] MEDS: traZODone 50 MG TAB PO PRN (21:36)
[2021-08-17] VITALS: BP 124/76
[2021-08-17] MEDS ORDERED: guaiFENesin 20 MG/ML UDC PO PRN (00:40)
[2021-08-17 04:00] VITALS: BP 101/68
[2021-08-17] MEDS: ACETAMINOPHEN 325 MG TAB PO PRN (04:33)
[2021-08-17 07:08] LABS: ANION GAP 12.4 (8-16); CARBON DIOXIDE 27.2 mmol/L (21-32); POTASSIUM 3.6 mmol/L (3.5-5.1)
--- NOTE | 2021-08-17 07:20 | NUR ---
RECEIVED BEDSIDE REPORT FROM PRIMING MIXTURE CARRIER NURSE FOR CONTINUITY OF CARE. PT IS STABLE. AWAKE AND ALERT. A&OX4. ON 2L O2 NC WITH BREATHING UNLABORED. PT IS AMBULATORY INDEPENDENTLY. SKIN IS WARM, DRY, AND INTACT. IV IS IN THE LEFT AC 18 GAUGE SALINE LOCKED. PT IS STABLE. PLAN OF CARE DISCUSSED.
[2021-08-17 08:00] VITALS: BP 113/72
[2021-08-17] MEDS: DOCUSATE SODIUM 100 MG GELCAP PO SCH ×2 (08:57→20:45)
[2021-08-17] MEDS: LORATADINE 10 MG TAB PO SCH (08:57)
[2021-08-17] MEDS: SPIRONOLACTONE 25 MG TAB PO SCH (08:58)
[2021-08-17] MEDS: FUROSEMIDE 40 MG/4 ML VIAL IVP SCH ×2 (08:58→21:00)
[2021-08-17] MEDS: ESCITALOPRAM 20 MG TAB PO SCH (08:58)
[2021-08-17] MEDS: ASPIRIN 81 MG TAB.CHEW PO SCH (08:58)
[2021-08-17] MEDS: LORazepam 1 MG TAB PO PRN ×2 (08:58→16:29)
--- NOTE | 2021-08-17 08:58 | NUR ---
PT WAS GIVEN ATIVAN PO SHE STATED SHE WAS FEELING ANXIOUS. BP WAS STABLE PRIOR TO ADMINISTRATION OF MEDICATION. WILL MONITOR.
[2021-08-17] MEDS: carvediloL 6.25 MG TAB PO SCH ×2 (09:00→21:02)
[2021-08-17] MEDS: PANTOPRAZOLE 40 MG TABEC PO SCH (09:00)
[2021-08-17] MEDS: LOSARTAN 25 MG TAB PO SCH (09:00)
[2021-08-17 12:00] VITALS: BP 113/42
--- NOTE | 2021-08-17 12:00 | NUR ---
PT IS SITTING UP IN BED. DENIES ANY PAIN OR ANXIETY. BREATHING APPEARS UNLABORED ON 2L O2 NC. O2 SAT IS 100%. PT IS STABLE.
--- NOTE | 2021-08-17 14:30 | NUR ---
MADE ROUNDS ON PT. SHE IS SLEEPING WITH NO RESPIRATORY DISTRESS. RIGHT HAND APPEARS TO HAVE LESS SWELLING. IV IS PATENT AND INTACT. CALL LIGHT WITHIN REACH.
[2021-08-17 16:00] VITALS: BP 86/42
--- NOTE | 2021-08-17 16:29 | NUR ---
PT STATES SHE IS NAUSEOUS AND FEELING ANXIOUS. PT WAS GIVEN ZOFRAN AND ATIVAN ORDERED PRN. BP WAS STABLE PRIOR TO ADMINISTRATION OF MEDICATION. WILL CONTINUE TO MONITOR.
--- NOTE | 2021-08-17 19:10 | NUR ---
ENDORSED PT TO AUTOMOBILE DESIGNER NURSE FOR CONTINUITY OF CARE. PT IS STABLE. PLAN OF CARE DISCUSSED.
--- NOTE | 2021-08-17 19:30 | NUR ---
RECEIVED REPORT FROM KRISTA VIERA FOR CONTINUITY OF CARE, PT LYING IN BED RESTING WITH EYES CLOSED. SHE IS ON 2 LITERS OF N/C. ALL UNIVERSAL FALLS PRECAUTIONS IN PLACE.
[2021-08-17 20:00] VITALS: BP 98/59
[2021-08-17] MEDS ORDERED: CRUSHER, PILL MC ONE (20:42)
[2021-08-17] MEDS: ATORVASTATIN 20 MG TAB PO SCH (20:44)
[2021-08-17] MEDS: traZODone 50 MG TAB PO PRN (21:24)
--- NOTE | 2021-08-17 21:30 | NUR ---
PT IN BED WITH 2 LITERS 02 VIA N/C VITAL SIGNS FOLLOWS: T 98.8 P 101 R 20 B/P 98/59 02 95% WITH 2 LITERS VIA N/C. CONTACTED PNP MD LORENZO BECAUSE PT HAS SCHEDULED LASIX 40MG AND A COREG WELL. PT IS ALSO REQUESTING ATIVAN FOR ANXIETY. REPLIED THAT COREG OK TO GIVEN HOLD LASIX AND DON'T GIVE PRN ATIVAN DUE TO LOW B/P. PT ALSO REQUESTED HER TRAZODONE FOR SLEEPLESSNESS. SAID OK TO GIVE. PT WAS GIVEN REQUESTED TRAZODONE, SHE WAS MADE AWARE THAT PRN ATIVAN HAS TO BE HELD WELL IV LASIX DUE TO PT LOW B/P . SHE WAS ASLO EDUCATED REGARDING ALL GIVEN MEDS COREG COLACE AND AND LIPITOR , PT VERBALIZED UNDERSTANDING OF MEDICATION AND EDUCATION PT HAD DINNER AT BEDSIDE, WHICH SHE DID NOT CONSUME EXCEPT FOR ICE CREAM. ALL UNIVERSAL PRECAUTIONS IN PLACE.
--- NOTE | 2021-08-17 23:00 | NUR ---
PT IN BED ASLEEP, SHE REMAINS ON 2 LITERS VIA N/C, ALL UNIVERSAL FALLS PRECAUTIONS IN PLACE.
[2021-08-18] VITALS: BP 118/77
--- NOTE | 2021-08-18 00:30 | NUR ---
PT LYING IN BED AOX4 SHE IS SLEEPING WITH EYES CLOSED BUT AROUSABLE TO NAME AND LIGHT TOUCH, SHE HAS NO S/S OF PAIN OR DISTRESS NOTED. V/S FOLLOWS: T 98.4 P 90 R 18 B/P 118/77 02 94% ON 2 LITERS VIA N/C. ALL UNIVERSAL FALLS PRECAUTIONS IN PLACE.
--- NOTE | 2021-08-18 02:00 | NUR ---
PT RESTING IN BED NO C/O VOICED. ALL UNIVERSAL FALLS PRECAUTIONS IN PLACE.
[2021-08-18 04:00] VITALS: BP 112/86
[2021-08-18] MEDS: ACETAMINOPHEN 325 MG TAB PO PRN ×2 (05:04→09:32)
[2021-08-18] MEDS: LORazepam 1 MG TAB PO PRN (05:04)
--- NOTE | 2021-08-18 05:08 | NUR ---
PT C/O BACK PAIN AND ANXIETY , SHE WAS GIVEN PO/PRN 650MG TYLENOL AND PO/PRN ATIVAN . WILL MONITOR FOR EFFECT. V/S FOLLOWS: T 98.0 P 99 R 20 B/P 118/77 02 98% ON 2 LITERS VOA N/C. ALL REQUESTED NEEDS ATTENDED AND ALL UNIVERSAL FALLS PRECAUTIONS IN PLACE.
--- NOTE | 2021-08-18 06:12 | NUR ---
ROUNDS DONE, PT IN BED ASLEEP NO S/S OF PAIN OR DISTRESS NOTED. ALL UNIVERSAL FALLS PRECAUTIONS IN PLACE.
[2021-08-18 06:35] LABS: ANION GAP 10.6 (8-16); CARBON DIOXIDE 28.2 mmol/L (21-32); CREATININE 0.9 mg/dL (0.6-1.3); POTASSIUM 3.8 mmol/L (3.5-5.1)
--- NOTE | 2021-08-18 06:57 | NUR ---
UPDATED BROTHER ON PT CONDITION WITH PT PERMISSION. PT HAS NO C/O VOICED AT THIS TIME.
--- NOTE | 2021-08-18 07:45 | NUR ---
RECEIVED REPORT FROM OUTGOING RN , PT LYING IN BED RESTING WITH EYES CLOSED. NO OBSERVABLE S/SX OF DISTRESS OR DISCOMFORT OBSERVED. ALL UN[facility] PRECAUTIONS IN PLACE.
[2021-08-18] MEDS: PANTOPRAZOLE 40 MG TABEC PO SCH (09:25)
[2021-08-18] MEDS: ASPIRIN 81 MG TAB.CHEW PO SCH (09:25)
[2021-08-18] MEDS: DOCUSATE SODIUM 100 MG GELCAP PO SCH (09:26)
[2021-08-18] MEDS: carvediloL 6.25 MG TAB PO SCH (09:26)
[2021-08-18] MEDS: SPIRONOLACTONE 25 MG TAB PO SCH (09:27)
[2021-08-18] MEDS: LOSARTAN 25 MG TAB PO SCH (09:27)
[2021-08-18] MEDS: LORATADINE 10 MG TAB PO SCH (09:27)
[2021-08-18] MEDS: ESCITALOPRAM 20 MG TAB PO SCH (09:28)
--- NOTE | 2021-08-18 09:30 | NUR ---
PATIENT C/O 4/10 BACK PAIN, PRN TYLENOL ADMINISTERED PER EMAR, WILL RE ASSES FOR PAIN NEEDED
[2021-08-18] MEDS: FUROSEMIDE 40 MG/4 ML VIAL IVP SCH (09:33)
--- NOTE | 2021-08-18 10:56 | NUR ---
PATIENT DEMANDING PAIN MEDICATION REPORTS 01/17 BACK PAIN, EXPLAINED TO PATIENT THAT THE ONLY PRN MEDICATION ORDERED BY MD IS TYLENOL WHICH WAS ALREADY ADMINISTERED, ADVISED PATIENT THAT TELEPHONE CALL HAS BEEN MADE TO OBTAIN FURTHER ORDERS, PATIENT BECAME IRATE AND BEGAN CURSING AND REUSED TO WAIT ANY LONGER, DR. BJ DUMONT WHEN PATIENT DC'D OWN IV LINE, OFFERED AMA FORM BUT REFUSED TO SIGN AND WALKED OUT THE DOOR. CHARGE NURSE AND MD AWARE
[2021-08-18] MEDS ORDERED: FUROSEMIDE 40 MG TAB PO SCH (17:00)
== END 2021-08-18 11:00 | disposition left against medical advice (07) | DRG 917 ==
LOC: MED 22:54 → MTU 08-15 02:28
DX: T42.4X1A Poisoning by benzodiazepines, accidental (unintentional), initial encounter (principal); I50.43 Acute on chronic combined systolic (congestive) and diastolic (congestive) heart failure; I63.9 Cerebral infarction, unspecified; E44.0 Moderate protein-calorie malnutrition; I42.9 Cardiomyopathy, unspecified; T40.711A Poisoning by cannabis, accidental (unintentional), initial encounter; I11.0 Hypertensive heart disease with heart failure; Z20.822 Contact with and (suspected) exposure to COVID-19; Z53.29 Procedure and treatment not carried out because of patient's decision for other reasons; J44.9 Chronic obstructive pulmonary disease, unspecified; K21.9 Gastro-esophageal reflux disease without esophagitis; E78.5 Hyperlipidemia, unspecified; F32.A Depression, unspecified; E87.6 Hypokalemia; J30.9 Allergic rhinitis, unspecified; E11.9 Type 2 diabetes mellitus without complications; Z88.0 Allergy status to penicillin; Z88.8 Allergy status to other drugs, medicaments and biological substances; Z79.899 Other long term (current) drug therapy; Z79.82 Long term (current) use of aspirin; Z79.84 Long term (current) use of oral hypoglycemic drugs; Z68.33 Body mass index [BMI] 33.0-33.9, adult; Z91.14 Patient's other noncompliance with medication regimen; Z71.6 Tobacco abuse counseling; Y92.89 Other specified places as the place of occurrence of the external cause
CPT/HCPCS: 36415; 71045; 80048; 80053; 80305; 83880; 84484; 85025; 87081; 94640; 97116; 97530; 99291; J1940; J7613; Q0162

== ENCOUNTER 2021-08-25 00:18 | Inpatient (IN) | payer OTHER, SELFPAY ==
[~2021-08-25] VITALS: Ht 157.5 cm; Wt 82.6 kg
[2021-08-25 00:24] VITALS: BP 173/110
--- NOTE | 2021-08-25 00:25 | NUR ---
PT TAKEN TO ER BED 07 VIA EMS
--- NOTE | 2021-08-25 00:40 | NUR ---
PT BIB ACLS TO ED WITH SOB ASSOCIATED WITH UPPER ABD CHEST PAIN. PT STATES PAIN IN CHEST IS LOCALIZED AND BULGE APPEAR WHEN STANDING UP. PT STATES ATIVAN RX RAN OUT X2 DAYS. DENIES N/V/D; SKIN IS PINK/WARM/DRY; AAOX4 WITH EVEN AND STEADY GAIT; RR TACHYPNEIC; HR EVEN AND REGULAR; PT DENIES ANY FEVER, OR COUGH AT THIS TIME; PATIENT STATES PAIN OF 8/10 AT THIS TIME; VS TAKEN AND RR 30; PATIENT POSITIONED FOR COMFORT; HOB ELEVATED; BEDRAILS UP X2; BED DOWN. ER MD MADE AWARE OF PT STATUS. PMH: CHF, HLD, ANXIETY, STROKE, & POSSIBLE HEART ATTACK. ALLERGIES: PCN, & LISINOPRIL MEDS: ASPIRIN, ATORVASTATIN CALCIUM, CARVEDILOL, ESCITALOPRAM OXALATE, FUROSEMIDE, KEPPRA, CLARITIN, ATIVAN, LOSARTAN, PROTONIX, ALDACTONE, & TRAZODONE.
[2021-08-25] MEDS ORDERED: NITROGLYCERIN 0.4 MG TAB SL ONE (00:55)
[2021-08-25] MEDS ORDERED: FUROSEMIDE 40 MG/4 ML VIAL IVP ONE (00:55)
[2021-08-25 01:09] LABS: BASOPHILS % (AUTO) 0.9 % (0.0-2.0); EOSINOPHILS # (AUTO) 0.1 K/uL (0-0.4); EOSINOPHILS % (AUTO) 2.1 % (0.0-4.0); HEMATOCRIT 34.6 % (36-48); HEMOGLOBIN 11.4 g/dL (12.0-16.0); LYMPHOCYTES # (AUTO) 3.1 K/uL (2.5-16.5); LYMPHOCYTES % (AUTO) 59.5 % (20.5-51.1); MEAN CORPUSCULAR HEMOGLOBIN 29 pg (27-31); MEAN CORPUSCULAR HGB CONC 33 g/dL (33-37); MEAN CORPUSCULAR VOLUME 87.8 fL (80-94); MONOCYTES # (AUTO) 0.5 K/uL (0.8-1.0); MONOCYTES % (AUTO) 8.6 % (1.7-9.3); NEUTROPHILS # (AUTO) 1.5 K/uL (1.8-7.7); NEUTROPHILS % (AUTO) 28.9 % (42.2-75.2); PLATELET COUNT (AUTO) 220 K/uL (140-450); RED BLOOD CELL COUNT(AUTO) 3.94 MIL/uL (4.20-5.40); RED CELL DISTRIBUTION WIDTH 13.9 % (11.6-13.7); WHITE BLOOD COUNT (AUTO) 5.3 K/uL (4.8-10.8)
[2021-08-25 01:26] LABS: ALBUMIN 3.1 g/dL (3.4-5.0); ANION GAP 13.8 (8-16); POTASSIUM 3.8 mmol/L (3.5-5.1); TOTAL BILIRUBIN 0.2 mg/dL (0.0-1.0)
[2021-08-25] MEDS ORDERED: ASPIRIN 325 MG TAB PO ONE (01:35)
--- NOTE | 2021-08-25 02:01 | NUR ---
PT AMBULATED TO BATHROOM WITH EVEN AND STEADY GAIT. PT PUT BACK ON MONITOR
[2021-08-25] MEDS ORDERED: LORazepam 1 MG TAB PO ONE (02:15)
[2021-08-25] MEDS ORDERED: traZODone 50 MG TAB ONE (03:24)
--- NOTE | 2021-08-25 03:30 | NUR ---
PT FELT RESTLESS AND FET TIRED. REPORTED TO DR. BAILEY TO PRESCRIBE TRAZADONE
--- NOTE | 2021-08-25 04:20 | NUR ---
DIAMOND SWABS COLLECTED AND WALKED OVER TO LAB.
[2021-08-25] MEDS ORDERED: traZODone 50 MG TAB PO SCH ×2 (04:30→09:00)
--- NOTE | 2021-08-25 06:06 | NUR ---
Patient appears to be resting comfortably in bed. PT LYING RT LATERAL Vital Signs within normal limits. Respirations even and unlabored.
--- NOTE | 2021-08-25 07:37 | NUR ---
Received report from [facility] for transfer of care.
--- NOTE | 2021-08-25 07:40 | NUR ---
Received patient sitting upright in bed with environmental monitoring technician in place. Patient requesting anxiety medication stating she did not sleep well. VSS; SpO2 94% on room air. No respiratory distress noted. Bed locked in lowest position, side rails x 1.
[2021-08-25] MEDS ORDERED: ONDANSETRON 4 MG/2 ML VIAL IVP PRN (07:45)
[2021-08-25] MEDS ORDERED: SODIUM PHOS / POTASSIUM PHOS 1 PKT PDR PO PRN (07:45)
[2021-08-25] MEDS ORDERED: POTASSIUM CHLORIDE 10 MEQ TABER PO PRN (07:45)
[2021-08-25] MEDS ORDERED: ZOLPIDEM 5 MG TAB PO PRN (07:45)
[2021-08-25] MEDS ORDERED: NACL 0.9% 1,000 ML IV SCH (07:45)
[2021-08-25] MEDS ORDERED: ACETAMINOPHEN 325 MG TAB PO PRN (07:45)
[2021-08-25] MEDS ORDERED: HYDROcodone/APAP 5/325 MG 1 TAB TAB PO PRN (07:45)
[2021-08-25] MEDS ORDERED: DOCUSATE SODIUM 100 MG GELCAP PO PRN (07:45)
[2021-08-25] MEDS ORDERED: MAG SULF 2000 MG/WATER PREMIX 50 ML IV PRN (07:45)
[2021-08-25] MEDS: LORazepam 2 MG/ML VIAL IM/IVP PRN (09:11)
[2021-08-25 09:28] LABS: CHOL/HDL RATIO 1.9 (1-4.5); FREE T4 (FREE THYROXINE) 1.06 ng/dL (0.76-1.46); PHOSPHORUS 3.2 mg/dL (2.5-4.9); PROTHROMBIN TIME 10.3 secs (10.8-13.4); THYROID STIMULATING HORMONE 0.47 uIU/mL (0.34-3.74)
[2021-08-25] MEDS: NACL 0.9% 500 ML IV SCH (09:40)
--- NOTE | 2021-08-25 10:30 | NUR ---
Notified Dr. Hair of critical troponin labs. Received telephone orders for Lovenox 1mg/kg once and wait for Dr. Chanel. Orders carried out.
[2021-08-25] MEDS ORDERED: LOVENOX 1MG/KG Q24H SUBQ ONE (10:35)
[2021-08-25] MEDS ORDERED: ENOXAPARIN 80 MG/0.8 ML SYR SUBQ ONE (10:40)
[2021-08-25] MEDS ORDERED: ENOXAPARIN 80 MG/0.8 ML SYR SUBQ SCH (11:00)
--- NOTE | 2021-08-25 12:03 | NUR ---
Patient is sitting up on bed, eating lunch. No signs of distress noted.
--- NOTE | 2021-08-25 12:18 | NUR ---
Report given to AYLIN Nieto.
--- NOTE | 2021-08-25 12:25 | NUR ---
Chart checked and completed. The patient's care was reviewed and supervised by Kendell Mccarty, RN, RN.
--- NOTE | 2021-08-25 12:25 | NUR ---
Patient will be admitted to care of Dr. Hilliard. Admited to Telemetry. Will go to room 104A. Belongings list completed. Report to AYLIN Nieto.
--- NOTE | 2021-08-25 12:35 | NUR ---
RECEIVED REPORT FROM TIER LIFT TRUCK OPERATOR. PT IN STABLE CONDITION, VSS, REPORTS PAIN IN LOWER BACK. PT AWARE OF POC, QUESTIONS/CONCERNS ANSWERED. SAFETY MEASURES IN PLACE.
[2021-08-25] MEDS: MORPHINE SULFATE 2 MG/ML SYR IVP PRN ×3 (12:53→21:16)
[2021-08-25 13:51] VITALS: BP 112/68
--- NOTE | 2021-08-25 15:48 | NUR ---
PATIENT HAS BEEN SCREENED AND CATEGORIZED MODERATE NUTRITION RISK. PATIENT WILL BE SEEN WITHIN 3-5 DAYS OF ADMISSION. [address]
[2021-08-25 16:00] VITALS: BP 116/74
[2021-08-25] MEDS ORDERED: LOVENOX 1MG/KG Q12H SUBQ SCH (16:25)
[2021-08-25] MEDS ORDERED: FUROSEMIDE 40 MG/4 ML VIAL IVP SCH ×2 (16:30→17:00)
[2021-08-25] MEDS: carvediloL 6.25 MG TAB PO SCH (17:09)
--- NOTE | 2021-08-25 17:18 | NUR ---
PT C/O BACK PAIN 12/17, GIVEN MORPHINE. PT EXPERIENCED RELIEF, WILL CONTINUE TO MONITOR.
--- NOTE | 2021-08-25 19:14 | NUR ---
ENDORSED CARE TO EMBROIDERY WORKER RN, PT IN STABLE CONDITION.
--- NOTE | 2021-08-25 19:14 | NUR ---
RECEIVED PT AAOX4 , W/ O2 AT 2LPM/NC - O2 SAT WNL , IV SITE INTACT AND PATENT , ON TELE MONITOR - SR , CALL LIGHT WITHIN REACH . PLAN OF CARE DISCUSSED AND VERBALIZES UNDERSTANDING . WILL CONT. TO MONITOR
[2021-08-25 20:00] VITALS: BP 116/74
[2021-08-25] MEDS ORDERED: ATORVASTATIN 20 MG TAB PO SCH (21:00)
[2021-08-25] MEDS: FUROSEMIDE 40 MG/4 ML VIAL IVP SCH (21:00)
--- NOTE | 2021-08-25 21:00 | NUR ---
BP RE CHECK 111/60
[2021-08-25] MEDS ORDERED: CRUSHER, PILL MC ONE (21:23)
[2021-08-25] MEDS: DOCUSATE SODIUM 100 MG GELCAP PO SCH (21:46)
[2021-08-25] MEDS: levETIRAcetam 500 MG TAB PO SCH (21:47)
[2021-08-25] MEDS: ENOXAPARIN 80 MG/0.8 ML SYR SUBQ SCH (21:47)
[2021-08-26] VITALS: BP 111/60
[2021-08-26] MEDS: LORazepam 2 MG/ML VIAL IM/IVP PRN ×3 (00:29→20:50)
[2021-08-26 04:00] VITALS: BP 96/70
--- NOTE | 2021-08-26 04:00 | NUR ---
ROUNDS , C/O PAIN WILL MEDICATE . CALL LIGHT WITHIN REACH .
[2021-08-26] MEDS: FUROSEMIDE 40 MG/4 ML VIAL IVP SCH ×3 (05:00→20:46)
[2021-08-26] MEDS: MORPHINE SULFATE 2 MG/ML SYR IVP PRN ×6 (05:02→20:54)
--- NOTE | 2021-08-26 06:00 | NUR ---
O2 SAT WNL . ON TELE MONITOR - SR - WILL CONT. TO MONITOR
[2021-08-26 07:22] LABS: BASOPHILS % (AUTO) 0.8 % (0.0-2.0); EOSINOPHILS # (AUTO) 0.2 K/uL (0-0.4); EOSINOPHILS % (AUTO) 3.3 % (0.0-4.0); HEMATOCRIT 34.5 % (36-48); HEMOGLOBIN 11.4 g/dL (12.0-16.0); LYMPHOCYTES # (AUTO) 2.3 K/uL (2.5-16.5); LYMPHOCYTES % (AUTO) 44.2 % (20.5-51.1); MEAN CORPUSCULAR HEMOGLOBIN 29 pg (27-31); MEAN CORPUSCULAR HGB CONC 33 g/dL (33-37); MEAN CORPUSCULAR VOLUME 87.7 fL (80-94); MONOCYTES # (AUTO) 0.6 K/uL (0.8-1.0); MONOCYTES % (AUTO) 12.2 % (1.7-9.3); NEUTROPHILS # (AUTO) 2.1 K/uL (1.8-7.7); NEUTROPHILS % (AUTO) 39.5 % (42.2-75.2); PLATELET COUNT (AUTO) 228 K/uL (140-450); RED BLOOD CELL COUNT(AUTO) 3.93 MIL/uL (4.20-5.40); RED CELL DISTRIBUTION WIDTH 14.1 % (11.6-13.7); WHITE BLOOD COUNT (AUTO) 5.2 K/uL (4.8-10.8)
--- NOTE | 2021-08-26 07:24 | NUR ---
ENDORSED - PT -STABLE.
[2021-08-26 08:00] VITALS: BP 122/81
[2021-08-26] MEDS: carvediloL 6.25 MG TAB PO SCH ×2 (08:00→17:17)
--- NOTE | 2021-08-26 08:00 | NUR ---
COREG NOT GIVEN DUE TO REPORT FROM RECORD LABEL INTERN NURSE PT BP HAS BEEN TRENDING LOW, WILL CONTINUE TO MONITOR.
[2021-08-26] MEDS ORDERED: FUROSEMIDE 40 MG TAB PO SCH (09:00)
[2021-08-26] MEDS ORDERED: FUROSEMIDE 20 MG TAB PO SCH (09:00)
[2021-08-26] MEDS: ATORVASTATIN 20 MG TAB PO SCH (09:24)
[2021-08-26] MEDS: levETIRAcetam 500 MG TAB PO SCH ×2 (09:24→20:48)
[2021-08-26] MEDS: SPIRONOLACTONE 25 MG TAB PO SCH (09:24)
--- NOTE | 2021-08-26 09:24 | NUR ---
DUE MEDICATIONS ADMINISTERED, PT TOLERATED WELL, NO DISTRESS NOTED, WILL CONTINUE TO MONITOR.
[2021-08-26] MEDS: ASPIRIN 81 MG TAB.CHEW PO SCH (09:25)
[2021-08-26] MEDS: LORATADINE 10 MG TAB PO SCH (09:25)
[2021-08-26] MEDS: LOSARTAN 25 MG TAB PO SCH (09:25)
[2021-08-26] MEDS: DOCUSATE SODIUM 100 MG GELCAP PO SCH ×2 (09:25→20:47)
[2021-08-26] MEDS: ESCITALOPRAM 20 MG TAB PO SCH (09:26)
[2021-08-26] MEDS: ENOXAPARIN 80 MG/0.8 ML SYR SUBQ SCH ×2 (09:26→20:49)
[2021-08-26] MEDS: NACL 0.9% 500 ML IV SCH (11:06)
--- NOTE | 2021-08-26 11:12 | NUR ---
PT STATED WAS TOLD BY DR BATISTA TO TRY TO LAY FLAT ON HER BACK, PT THEN STATED SHE IS UNABLE TO TOLERATE LAYING ON HER BACK, STATED WOKE UP FEELING SHORT OF BREATH, AND UNABLE TO BREATHE.
[2021-08-26 12:00] VITALS: BP 125/76
[2021-08-26 12:42] LABS: ANION GAP 17.4 (8-16); CARBON DIOXIDE 22.9 mmol/L (21-32); MAGNESIUM 1.9 mg/dL (1.8-2.4); POTASSIUM 3.3 mmol/L (3.5-5.1); TOTAL BILIRUBIN 0.3 mg/dL (0.0-1.0)
--- NOTE | 2021-08-26 13:34 | NUR ---
PT C/O ANXIETY, NOTED PT WAS SCREAMING ON THE PHONE PRIOR TO COMPLAINT, MEDICATION PRN GIVEN, PT TOLERATED WELL, WILL CONTINUE TO MONITOR.
[2021-08-26 14:01] LABS: APPEARANCE,URINE HAZY (CLEAR); BILIRUBIN,URINE NEGATIVE (NEGATIVE); BLOOD, URINE TRACE-I (NEGATIVE); COLOR,URINE YELLOW (YELLOW); LEUKOCYTE ESTERASE ,URINE NEGATIVE (NEGATIVE); NITRITE, URINE NEGATIVE (NEGATIVE); UGLUCOSE NEGATIVE (NEGATIVE)
[2021-08-26 15:13] LABS: BARBITURATE, URINE NEGATIVE ng/ml (NEG <=200); BENZODIAZEPINE, URINE POSITIVE ng/mL (NEG <=200); CANNABINOID, URINE NEGATIVE ng/mL (NEG <=50); COCAINE, URINE NEGATIVE ng/mL (NEG <=300); OPIATE, URINE POSITIVE ng/mL (NEG <=2000); PHENCYCLIDINE SCREEN,URINE NEGATIVE ng/mL (NEG <=25)
[2021-08-26 16:00] VITALS: BP 140/82
--- NOTE | 2021-08-26 19:30 | NUR ---
ENDORSED PT TO WOOL PULLER NURSE FOR CONTINUOUS OF CARE.
--- NOTE | 2021-08-26 19:30 | NUR ---
RECEIVED REPORT FROM RN DAYSHIFT NURSE AT BEDSIDE FOR CONTINUITY OF CARE. PT SITTING UP IN BED HOB UP 90 DEGREES; SHE IS AOX3 AND ON 1 LITER 02 VIA N/C FOR COMFORT. SHE HAS A LEFT HAND 24G INTACT AND SYMPTOMATIC AND SALINE LOCKED. ALL UNIVERSAL FALLS PRECAUTIONS IN PLACE.
[2021-08-26 20:00] VITALS: BP 130/97
--- NOTE | 2021-08-26 21:00 | NUR ---
PT SITTING UP IN BED V/S FOLLOWS: T 97.0 P 87 R 20 B/P 130/97 02 97% WITH 1 LITER VIA N/C. PT WAS GIVEN ORDERED LASIX 40MG IVP, COLACE, AND KEPPRA PO WELL LOVENOX SQ. EDUCATION REGARDING MEDICATION PROVIDED AT BEDSIDE, PT VERBALIZED UNDERSTANDING. PT ALSO GIVEN REQUESTED ATIVAN IVP FOR ANXIETY, MORPHINE IVP FOR GENERALIZED PAIN WELL REQUESTED AMBIEN PO FOR SLEEPLESSNESS. WILL MONITOR FOR EFFECT. ALL OTHER REQUESTS ATTENDED BY STAFF AND ALL UNIVERSAL FALLS PRECAUTIONS IN PLACE.
[2021-08-27] VITALS: BP 110/78
--- NOTE | 2021-08-27 00:30 | NUR ---
PT IN BED HOB UP 45% SHE IS RESTING WITH EYES CLOSED, NO S/S OF PAIN OR DISTRESS NOTED. PT V/S FOLLOWS: T 98.3 P 92 R 20 B/P 116/65 02 96% WITH 1 LITERS VIA N/C. ALL UNIVERSAL FALLS PRECAUTIONS IN PLACE.
[2021-08-27] MEDS: MORPHINE SULFATE 2 MG/ML SYR IVP PRN ×2 (03:58→07:16)
[2021-08-27 04:00] VITALS: BP 118/82
[2021-08-27] MEDS: FUROSEMIDE 40 MG/4 ML VIAL IVP SCH (05:47)
[2021-08-27] MEDS: LORazepam 2 MG/ML VIAL IM/IVP PRN (05:51)
--- NOTE | 2021-08-27 06:00 | NUR ---
PT GIVEN ORDERED LASIX 40MG IVP. NEW IV SITE PROVIDED TO RIGHT HAND 24 GUAGE DUE TO INFILTRATION OF OLD IV SITE. PT ALSO GIVEN REQUESTED NORCO FOR MODERATE CHEST PAIN AND IV ATIVAN FOR ANXIETY. ALL REQUESTED NEEDS ATTENDED BY STAFF.
[2021-08-27] MEDS ORDERED: LORA10TA19 PO (07:16)
[2021-08-27] MEDS ORDERED: SPIR25TA PO (07:16)
[2021-08-27] MEDS ORDERED: ATOR20TA40 PO (07:16)
[2021-08-27] MEDS ORDERED: CARV6.252 PO (07:16)
[2021-08-27] MEDS ORDERED: LOSA25TA1 PO (07:16)
[2021-08-27] MEDS ORDERED: ASPI81CT95 PO (07:16)
[2021-08-27] MEDS ORDERED: KEP500 PO (07:16)
[2021-08-27] MEDS ORDERED: ESCI20TA49 PO (07:16)
[2021-08-27 07:28] LABS: EOSINOPHILS # (AUTO) 0.1 K/uL (0-0.4); EOSINOPHILS % (AUTO) 3.1 % (0.0-4.0); HEMATOCRIT 32.5 % (36-48); HEMOGLOBIN 10.6 g/dL (12.0-16.0); LYMPHOCYTES % (AUTO) 40.9 % (20.5-51.1); MEAN CORPUSCULAR HEMOGLOBIN 29 pg (27-31); MEAN CORPUSCULAR HGB CONC 33 g/dL (33-37); MEAN CORPUSCULAR VOLUME 88.3 fL (80-94); MONOCYTES # (AUTO) 0.7 K/uL (0.8-1.0); MONOCYTES % (AUTO) 14.2 % (1.7-9.3); NEUTROPHILS % (AUTO) 40.8 % (42.2-75.2); PLATELET COUNT (AUTO) 219 K/uL (140-450); RED BLOOD CELL COUNT(AUTO) 3.68 MIL/uL (4.20-5.40); RED CELL DISTRIBUTION WIDTH 14.5 % (11.6-13.7); WHITE BLOOD COUNT (AUTO) 4.9 K/uL (4.8-10.8)
[2021-08-27 07:51] LABS: ALBUMIN 2.9 g/dL (3.4-5.0); ANION GAP 12.6 (8-16); CARBON DIOXIDE 27.4 mmol/L (21-32); MAGNESIUM 1.9 mg/dL (1.8-2.4); TOTAL BILIRUBIN 0.3 mg/dL (0.0-1.0)
[2021-08-27 08:02] VITALS: BP 124/88
[2021-08-27] MEDS: SPIRONOLACTONE 25 MG TAB PO SCH (08:30)
[2021-08-27] MEDS: LORATADINE 10 MG TAB PO SCH (08:30)
[2021-08-27] MEDS: ASPIRIN 81 MG TAB.CHEW PO SCH (08:30)
[2021-08-27] MEDS: carvediloL 6.25 MG TAB PO SCH (08:30)
[2021-08-27] MEDS: NACL 0.9% 500 ML IV SCH (08:30)
[2021-08-27] MEDS: DOCUSATE SODIUM 100 MG GELCAP PO SCH (08:30)
[2021-08-27] MEDS: LOSARTAN 25 MG TAB PO SCH (08:31)
[2021-08-27] MEDS: levETIRAcetam 500 MG TAB PO SCH (08:31)
[2021-08-27] MEDS: ATORVASTATIN 20 MG TAB PO SCH (08:31)
[2021-08-27] MEDS: ESCITALOPRAM 20 MG TAB PO SCH (08:31)
[2021-08-27] MEDS: ENOXAPARIN 80 MG/0.8 ML SYR SUBQ SCH (08:34)
[2021-08-27] MEDS ORDERED: FURO-570 PO (08:48)
--- NOTE | 2021-08-27 09:05 | NUR ---
PT IS AOX4, VSS, NAD NOTED. PT WEANED DOWN TO RA SATTING ABOVE 95. PT RECEIVED AM MEDICATIONS. TOLERATED. PT SEEN BY MD. CLEARED TO BE DISCHARGE. PT AWARE OF DC INSTRUCTIONS/MEDICATIONS. PT SIGNED PPWK, IV DCED. PT TO BE PICKED UP BY DAUGHTER SHORTLY.
[2021-08-27 09:19] VITALS: BP 124/88
[2021-08-28] MEDS ORDERED: ONDA8TAB87 PO (09:57)
[2021-08-28] MEDS ORDERED: DIPH25TA53 PO (10:42)
== END 2021-08-27 09:35 | disposition home or self-care (01) | DRG 280 ==
LOC: MED 00:18 → MTU 04:06 → MED 04:06 → MTU 12:10
PROVIDERS: ADMIT Student in an Organized Health Care Education/Training Program; ATTEND Student in an Organized Health Care Education/Training Program
DX: I21.4 Non-ST elevation (NSTEMI) myocardial infarction (principal); J96.21 Acute and chronic respiratory failure with hypoxia; I50.43 Acute on chronic combined systolic (congestive) and diastolic (congestive) heart failure; I63.9 Cerebral infarction, unspecified; I42.9 Cardiomyopathy, unspecified; I11.0 Hypertensive heart disease with heart failure; J30.9 Allergic rhinitis, unspecified; J44.9 Chronic obstructive pulmonary disease, unspecified; F15.10 Other stimulant abuse, uncomplicated; E78.5 Hyperlipidemia, unspecified; Z20.822 Contact with and (suspected) exposure to COVID-19; F41.0 Panic disorder [episodic paroxysmal anxiety]; E11.9 Type 2 diabetes mellitus without complications; K21.9 Gastro-esophageal reflux disease without esophagitis; F32.A Depression, unspecified; F17.210 Nicotine dependence, cigarettes, uncomplicated; Z86.73 Personal history of transient ischemic attack (TIA), and cerebral infarction without residual deficits; Z71.6 Tobacco abuse counseling; Z71.51 Drug abuse counseling and surveillance of drug abuser; Z88.0 Allergy status to penicillin; Z88.8 Allergy status to other drugs, medicaments and biological substances; Z79.899 Other long term (current) drug therapy; Z79.82 Long term (current) use of aspirin; Z82.49 Family history of ischemic heart disease and other diseases of the circulatory system; Z91.14 Patient's other noncompliance with medication regimen
CPT/HCPCS: 36415; 71045; 80053; 80305; 81003; 82150; 83036; 83690; 83735; 83880; 84100; 84439; 84443; 84484; 85025; 85610; 85730; 87081; 93005; 96374; 99291; J1650; J1940; J2060; J2270; Q0092

== ENCOUNTER 2021-08-28 07:32 | Emergency (ER) | payer OTHER, SELFPAY ==
[~2021-08-28] VITALS: Ht 157.5 cm; Wt 83.9 kg
[2021-08-28 07:32] VITALS: BP 156/108
[~2021-08-28 07:32] MED LIST changes: -CARV6.25 PO; +CARV6.252 PO; -FURO-572 PO; +KEP500 PO; -LEVE750T3 PO; +LOSA25TA1 PO; -LOSA25TA43 PO; -[UNRECOGNIZED DRUG - CODE] PO
--- NOTE | 2021-08-28 07:32 | NUR ---
60 Y/O F BIBA C/O SOB, CP 9/10 SINCE LAST NIGHT, RECENTLY SEEN AT [facility] AND DISCHARGED FOR THE SAME SYMPTOMS. NKDA PMH: CHF
--- NOTE | 2021-08-28 07:35 | NUR ---
Patient BIBA to bed 3.
--- NOTE | 2021-08-28 08:15 | NUR ---
BLOODWORK WALKED DOWN TO LAB
[2021-08-28] MEDS ORDERED: MORPHINE SULFATE 4 MG/ML SYR IVP ONE (09:05)
[2021-08-28 09:17] LABS: ALBUMIN 3.2 g/dL (3.4-5.0); ANION GAP 13.2 (8-16); CARBON DIOXIDE 24.9 mmol/L (21-32); CREATININE 0.8 mg/dL (0.6-1.3); POTASSIUM 4.1 mmol/L (3.5-5.1); TOTAL BILIRUBIN 0.5 mg/dL (0.0-1.0)
[2021-08-28 09:41] LABS: BASOPHILS % (AUTO) 0.6 % (0.0-2.0); EOSINOPHILS # (AUTO) 0.1 K/uL (0-0.4); EOSINOPHILS % (AUTO) 1.3 % (0.0-4.0); HEMATOCRIT 35.1 % (36-48); HEMOGLOBIN 11.6 g/dL (12.0-16.0); LYMPHOCYTES # (AUTO) 1.9 K/uL (2.5-16.5); LYMPHOCYTES % (AUTO) 36.6 % (20.5-51.1); MEAN CORPUSCULAR HEMOGLOBIN 29 pg (27-31); MEAN CORPUSCULAR HGB CONC 33 g/dL (33-37); MEAN CORPUSCULAR VOLUME 87.7 fL (80-94); MONOCYTES # (AUTO) 0.7 K/uL (0.8-1.0); NEUTROPHILS # (AUTO) 2.5 K/uL (1.8-7.7); NEUTROPHILS % (AUTO) 48.5 % (42.2-75.2); PLATELET COUNT (AUTO) 237 K/uL (140-450); RED CELL DISTRIBUTION WIDTH 14.1 % (11.6-13.7); WHITE BLOOD COUNT (AUTO) 5.2 K/uL (4.8-10.8)
[2021-08-28] MEDS ORDERED: ONDANSETRON 4 MG/2 ML VIAL IVP ONE (09:45)
[2021-08-28] MEDS ORDERED: FUROSEMIDE 100 MG/10 ML VIAL IVP ONE (09:45)
[2021-08-28] MEDS ORDERED: ONDA8TAB87 PO (09:57)
--- NOTE | 2021-08-28 10:35 | NUR ---
PT AMBULATED TO RESTROOM WITH STEADY GAIT
[2021-08-28] MEDS ORDERED: DIPH25TA53 PO (10:42)
[2021-08-28 10:50] VITALS: BP 135/95
--- NOTE | 2021-08-28 10:50 | NUR ---
Patient discharged with v/s stable. Written and verbal after care instructions given and explained. Patient alert, oriented and verbalized understanding of instructions. Ambulatory with steady gait. All questions addressed prior to discharge. ID band removed. Patient advised to follow up with PMD. Rx of ZOFRAN given. Patient educated on indication of medication including possible reaction and side effects. Opportunity to ask questions provided and answered.
== END 2021-08-28 10:50 | disposition home or self-care (01) ==
LOC: MED 07:32
DX: R07.9 Chest pain, unspecified (principal); R06.02 Shortness of breath; R11.0 Nausea; M79.10 Myalgia, unspecified site; J44.9 Chronic obstructive pulmonary disease, unspecified; I10 Essential (primary) hypertension; Z79.899 Other long term (current) drug therapy; Z79.82 Long term (current) use of aspirin; Z88.0 Allergy status to penicillin; Z88.8 Allergy status to other drugs, medicaments and biological substances; Z98.890 Other specified postprocedural states
CPT/HCPCS: 36415; 71045; 80053; 83880; 84484; 85025; 93005; 96374; 96375; 99285; J1940; J2270; J2405

== ENCOUNTER 2021-09-12 05:53 | Inpatient (IN) | payer OTHER, SELFPAY ==
[~2021-09-12] VITALS: Ht 157.5 cm; Wt 84.8 kg
[~2021-09-12 05:53] MED LIST changes: +DIPH25TA53 PO; +ONDA8TAB87 PO
[2021-09-12 05:54] VITALS: BP 143/100
[2021-09-12] MEDS ORDERED: ASPIRIN 81 MG TAB.CHEW PO ONE (06:15)
--- NOTE | 2021-09-12 06:16 | NUR ---
Aspirin 162mg PO administered by fellow RN. Pt tolerating without n/v.
[2021-09-12 06:46] LABS: BASOPHILS # (AUTO) 0.1 K/uL (0.00-0.22); BASOPHILS % (AUTO) 1.2 % (0.0-2.0); EOSINOPHILS # (AUTO) 0.1 K/uL (0-0.4); EOSINOPHILS % (AUTO) 2.4 % (0.0-4.0); HEMATOCRIT 34.8 % (36-48); HEMOGLOBIN 11.4 g/dL (12.0-16.0); LYMPHOCYTES # (AUTO) 2.3 K/uL (2.5-16.5); LYMPHOCYTES % (AUTO) 39.3 % (20.5-51.1); MEAN CORPUSCULAR HEMOGLOBIN 29 pg (27-31); MEAN CORPUSCULAR HGB CONC 33 g/dL (33-37); MEAN CORPUSCULAR VOLUME 87.3 fL (80-94); MONOCYTES # (AUTO) 0.7 K/uL (0.8-1.0); MONOCYTES % (AUTO) 12.7 % (1.7-9.3); NEUTROPHILS # (AUTO) 2.6 K/uL (1.8-7.7); NEUTROPHILS % (AUTO) 44.4 % (42.2-75.2); PLATELET COUNT (AUTO) 198 K/uL (140-450); RED BLOOD CELL COUNT(AUTO) 3.98 MIL/uL (4.20-5.40); RED CELL DISTRIBUTION WIDTH 14.6 % (11.6-13.7); WHITE BLOOD COUNT (AUTO) 5.8 K/uL (4.8-10.8)
--- NOTE | 2021-09-12 06:46 | NUR ---
Seizure pads applied on side rails.
[2021-09-12 07:11] LABS: ALBUMIN 3.1 g/dL (3.4-5.0); ANION GAP 11.9 (8-16); CARBON DIOXIDE 26.5 mmol/L (21-32); CREATININE 0.9 mg/dL (0.6-1.3); POTASSIUM 3.4 mmol/L (3.5-5.1); TOTAL BILIRUBIN 0.2 mg/dL (0.0-1.0)
--- NOTE | 2021-09-12 07:20 | NUR ---
RECEIVED REPORT FROM MANDI RN, TRANSFER OF CARE AT THIS TIME.VERBALIZED PAIN IN LOWER BACK 02/17. RESPIRATIONS EVEN AND UNLABORED, 97% ON 2LPM NC. A/OX4. SEZIURE PRECAUTIONS IN PLACE. BED IN LOWEST POSITION, SIDE RAILS RAISED, PADS IN PLACE
--- NOTE | 2021-09-12 08:40 | NUR ---
PT C/O 02/17 BACK PAIN AND REQUESTING PAIN MEDICATION, DR AGUIRRE MADE AWARE
[2021-09-12] MEDS ORDERED: KETOROLAC 30 MG/ML VIAL IVP ONE (08:45)
--- NOTE | 2021-09-12 09:11 | NUR ---
URINE COLLECTED VIA BEDPAN,. URINE SAMPLE WALKED TO LAB
[2021-09-12 09:30] LABS: APPEARANCE,URINE CLEAR (CLEAR); BILIRUBIN,URINE NEGATIVE (NEGATIVE); BLOOD, URINE 1+ (NEGATIVE); COLOR,URINE YELLOW (YELLOW); LEUKOCYTE ESTERASE ,URINE NEGATIVE (NEGATIVE); NITRITE, URINE NEGATIVE (NEGATIVE); UGLUCOSE NEGATIVE (NEGATIVE)
[2021-09-12 09:52] LABS: BARBITURATE, URINE NEGATIVE ng/ml (NEG <=200); BENZODIAZEPINE, URINE POSITIVE ng/mL (NEG <=200); CANNABINOID, URINE NEGATIVE ng/mL (NEG <=50); COCAINE, URINE NEGATIVE ng/mL (NEG <=300); OPIATE, URINE POSITIVE ng/mL (NEG <=2000); PHENCYCLIDINE SCREEN,URINE NEGATIVE ng/mL (NEG <=25)
[2021-09-12] MEDS ORDERED: MORPHINE SULFATE 4 MG/ML SYR IVP ONE (10:05)
[2021-09-12] MEDS ORDERED: ONDANSETRON 4 MG/2 ML VIAL IVP ONE (10:05)
[2021-09-12] MEDS ORDERED: FUROSEMIDE 40 MG/4 ML VIAL IVP SCH (10:05)
[2021-09-12 10:08] LABS: RBC,URINE 0-5 /HPF (0-5)
[2021-09-12 10:09] LABS: TRICHOMONAS,URINE None Seen /HPF (None Seen); WBC,URINE 0-5 /HPF (0-5); YEAST,URINE None Seen /HPF (None Seen)
[2021-09-12] MEDS ORDERED: ACETAMINOPHEN 325 MG TAB PO PRN (10:15)
[2021-09-12] MEDS ORDERED: guaiFENesin DM 200/20 MG-10 ML 10 ML UDC PO PRN (10:15)
[2021-09-12] MEDS ORDERED: POTASSIUM CHLORIDE 10 MEQ TABER PO PRN (10:15)
[2021-09-12] MEDS ORDERED: ONDANSETRON 4 MG/2 ML VIAL IM/IVP PRN (10:15)
[2021-09-12] MEDS ORDERED: DOCUSATE SODIUM 100 MG GELCAP PO PRN (10:15)
[2021-09-12] MEDS ORDERED: ZOLPIDEM 5 MG TAB PO PRN (10:15)
[2021-09-12] MEDS ORDERED: traZODone 50 MG TAB PO PRN (10:20)
--- NOTE | 2021-09-12 10:36 | NUR ---
WHEELED TO CT WITH ZECHARIAH
--- NOTE | 2021-09-12 10:45 | NUR ---
BACK FROM CT
[2021-09-12] MEDS: NACL 0.9% 1,000 ML IV SCH (10:51)
--- NOTE | 2021-09-12 11:05 | NUR ---
CALLED DAUGHTER BENJAMIN CALLED REAGRDING PT STATUS
[2021-09-12 11:19] LABS: CHOL/HDL RATIO 1.5 (1-4.5); FREE T4 (FREE THYROXINE) 0.97 ng/dL (0.76-1.46); MAGNESIUM 1.9 mg/dL (1.8-2.4); PHOSPHORUS 3.6 mg/dL (2.5-4.9); THYROID STIMULATING HORMONE 0.27 uIU/mL (0.34-3.74)
--- NOTE | 2021-09-12 12:00 | NUR ---
GIVEN LUNCH. TOLERATED WELL
[2021-09-12] MEDS: HYDROcodone/APAP 7.5/325 MG 1 TAB PO PRN ×2 (15:42→20:55)
--- NOTE | 2021-09-12 15:47 | NUR ---
HANDED MRSA SWAB TO MINNA CUSTOMER CARE VOICE CONSULTANT
--- NOTE | 2021-09-12 16:41 | NUR ---
Patient will be admitted to care of DR TASHI AGUERO. Admited to TELEMETRY. Will go to room 104b. Belongings list completed. Report to shavon young.
[2021-09-12] MEDS: carvediloL 6.25 MG TAB PO SCH (17:02)
[2021-09-12] MEDS: FUROSEMIDE 20 MG/2 ML VIAL IVP SCH (17:02)
--- NOTE | 2021-09-12 17:03 | NUR ---
RECEIVED PATIENT FROM ER. CC SOB, DX SOB, CHF EXACERBATION. PATIENT A/A/O X4. RESPIRATIONS EVEN AND UNLABORED, ON 2L OXYGEN VIA NC. NO SIGN OF DISTRESS NOTED. LUNG SOUND CRACKLES ON BILATERAL LOBES. S1 AND S2 NOTED, ON TELE MONITOR. ABD SOFT, NON TENDER, BOWEL SOUND ACTIVE TO ALL QUADRANTS. SKIN WARM, DRY, NON DIAPHORETIC. BILATERAL LOWER EXTREMITIES EDEMA NOTED. IV ON LH HAND 20G, INTACT AND PATENT, RUNNING NS 60ML/HR. PATIENT DENIES ANY PAIN OR DISCOMFORT. ABLE TO MAKE NEED KNOWN. PLAN OF CARE DISCUSSED, ORIENTED TO ROOM AND UNIT ROUTINE, PATIENT VERBALIZED UNDERSTANDING. MRSA NARES COLLECTED. CALL LIGHT WITHIN REACH. WILL CONTINUE TO MONITOR.
[2021-09-12 17:21] VITALS: BP 132/81
--- NOTE | 2021-09-12 18:30 | NUR ---
PT IN BED EATING DINNER, NO SOB ON 2L, NO C/O PAIN AT THIS TIME
[2021-09-12] MEDS: LORazepam 1 MG TAB PO PRN (19:00)
[2021-09-12 20:00] VITALS: BP 119/76
[2021-09-12] MEDS: levETIRAcetam 100 MG/ML ORASYR PO SCH (20:56)
[2021-09-12] MEDS ORDERED: levETIRAcetam 500 MG TAB PO SCH (21:00)
[2021-09-13] VITALS: BP 113/64
[2021-09-13] MEDS: LORazepam 1 MG TAB PO PRN ×3 (01:24→18:42)
[2021-09-13] MEDS: HYDROcodone/APAP 7.5/325 MG 1 TAB PO PRN ×4 (01:41→21:30)
[2021-09-13] MEDS: NACL 0.9% 1,000 ML IV SCH ×2 (03:46→19:35)
[2021-09-13 04:00] VITALS: BP 118/71
--- NOTE | 2021-09-13 05:50 | NUR ---
Pt A/o x4, resp even, unlabored on sat 96%. no s/s of acute distress. Patient with c/o of ,norco 7.5/325mg 1 tab po aq 4 hrs as ordered, ineffective for her back pain. denies nausea or abd discomfort. No s/s of seizures noted. iv intact and patent . MD operations processor, Dr. Garcia notified of the above . Will cont. to monitor and meet needs.
[2021-09-13 07:08] LABS: T4 (THYROXINE) 6.9 ug/dL (4.5-12.0)
[2021-09-13 07:34] LABS: BASOPHILS % (AUTO) 0.5 % (0.0-2.0); EOSINOPHILS # (AUTO) 0.1 K/uL (0-0.4); EOSINOPHILS % (AUTO) 2.8 % (0.0-4.0); HEMOGLOBIN 10.4 g/dL (12.0-16.0); LYMPHOCYTES # (AUTO) 2.3 K/uL (2.5-16.5); LYMPHOCYTES % (AUTO) 49.7 % (20.5-51.1); MEAN CORPUSCULAR HEMOGLOBIN 29 pg (27-31); MEAN CORPUSCULAR HGB CONC 33 g/dL (33-37); MONOCYTES # (AUTO) 0.7 K/uL (0.8-1.0); MONOCYTES % (AUTO) 14.4 % (1.7-9.3); NEUTROPHILS # (AUTO) 1.5 K/uL (1.8-7.7); NEUTROPHILS % (AUTO) 32.6 % (42.2-75.2); PLATELET COUNT (AUTO) 192 K/uL (140-450); RED BLOOD CELL COUNT(AUTO) 3.63 MIL/uL (4.20-5.40); RED CELL DISTRIBUTION WIDTH 14.5 % (11.6-13.7); WHITE BLOOD COUNT (AUTO) 4.5 K/uL (4.8-10.8)
[2021-09-13 07:45] LABS: ANION GAP 11.8 (8-16); CARBON DIOXIDE 26.2 mmol/L (21-32); CREATININE 0.8 mg/dL (0.6-1.3)
[2021-09-13 08:00] VITALS: BP 152/92
[2021-09-13] MEDS: ESCITALOPRAM 20 MG TAB PO SCH (09:07)
[2021-09-13] MEDS: FUROSEMIDE 20 MG/2 ML VIAL IVP SCH ×2 (09:07→18:31)
[2021-09-13] MEDS: LOSARTAN 25 MG TAB PO SCH (09:07)
[2021-09-13] MEDS: carvediloL 6.25 MG TAB PO SCH ×2 (09:08→18:31)
[2021-09-13] MEDS: ASPIRIN 81 MG TAB.CHEW PO SCH (09:08)
[2021-09-13] MEDS: PANTOPRAZOLE 40 MG TABEC PO SCH (09:08)
[2021-09-13] MEDS: ATORVASTATIN 20 MG TAB PO SCH (09:09)
[2021-09-13] MEDS: SPIRONOLACTONE 25 MG TAB PO SCH (09:10)
[2021-09-13] MEDS: levETIRAcetam 100 MG/ML ORASYR PO SCH ×2 (09:10→21:40)
[2021-09-13] MEDS ORDERED: HEPARIN PER PHARMACY MC PRN (10:50)
[2021-09-13] MEDS ORDERED: LIDOCAINE 2% 100 MG/5 ML UJET TP ONE (10:55)
[2021-09-13] MEDS ORDERED: LIDOCAINE 5% 1 EA PATCH TP SCH (11:00)
[2021-09-13] MEDS: LIDOCAINE 5% 1 EA PATCH TP SCH (11:16)
[2021-09-13 12:00] VITALS: BP 131/81
[2021-09-13] MEDS: hePARIN / DEXT 5% PREMIX 250 ML IV SCH ×2 (15:14→22:47)
[2021-09-13 16:00] VITALS: BP 140/96
--- NOTE | 2021-09-13 16:30 | NUR ---
DC PLANNINYRS OLD FEMALE PATIENT WAS ADMITTED FROM HOME WITH A DX OF SOB, CHEST PRESSURE. PT HAS A HX OF CHF, HTN, SEIZURE, GERD, METH USE AND CVA. CXR SHOWED CARDIOMEGALY WITH POSSIBLE MILD INTERSTITIAL EDEMA. RAPID COVID TEST NEGATIVE. CT HEAD NO ACUTE INTRACRANIAL HEMORRHAGE. TROPONIN 1480 ADMINISTERED HEPARIN DRIP AND CONTINUED HOME MEDS. CONSULTED WITH TELEVISION TUBE INSPECTOR AND NEUROLOGIST FOR BREAKTHROUGH SEIZURE. DC PLAN TO GO HOME WHEN STABLE. CM TO FOLLOW.
--- NOTE | 2021-09-13 19:30 | NUR ---
ENDORSED TO LOGGING SPECIALIST NURSE FOR CONTINUITY OF CARE. POC DISCUSSED.
--- NOTE | 2021-09-13 19:35 | NUR ---
RECEIVED REPORT FROM AM SHIFT NURSE FOR CONTINUITY OF CARE. PT A/A/O. ON 2L NC SAT AT 99%. IV ON LEFT FA RUNNING HEPARIN AT 8MLS/HR. IV ON L HAND WAS PULLED OUT. COMPLAINING OF SEVERE BACK PAIN, WILL GIVE PRN PAIN MEDICATION. ALL PRECAUTIONS IN PLACE. CALL LIGHT WITHIN REACH. WILL CONTINUE TO MONITOR.
[2021-09-13 20:00] VITALS: BP 148/94
[2021-09-13] MEDS ORDERED: traMADol 50 MG TAB PO PRN (20:50)
--- NOTE | 2021-09-13 21:30 | NUR ---
COMPLAINED OF BACK PAIN.PRN NORCO GIVEN.WILL CONTINUE TO MONITOR.
--- NOTE | 2021-09-13 22:50 | NUR ---
PTT CAME BACK 35.7. 1900 HEPARIN BOLUS GIVEN,ADJUSTED HEPARIN DRIP TO 900UNITS/ML PER PROTOCOL. WILL CONTINUE TO MONITOR.
[2021-09-14] VITALS: BP 125/81
--- NOTE | 2021-09-14 02:21 | NUR ---
PT ASLEEP.VISIBLE CHEST RISE AND FALL NOTED. NO S/SX OF RESPIRATORY DISTRESS. ALL PRECAUTIONS IN PLACE. CALL LIGHT WITHIN REACH. WILL CONTINUE TO MONITOR.
[2021-09-14] MEDS: HYDROcodone/APAP 7.5/325 MG 1 TAB PO PRN ×2 (04:17→10:31)
[2021-09-14] MEDS: LORazepam 1 MG TAB PO PRN ×2 (04:26→18:01)
--- NOTE | 2021-09-14 04:32 | NUR ---
PT REPORTS BACK PAIN 11/17. PRN NORCO GIVEN.
[2021-09-14 04:50] VITALS: BP 131/88
--- NOTE | 2021-09-14 06:30 | NUR ---
PTT CAME BACK 52.2. NO CHANGE ON HEPARIN DRIP RATE.
[2021-09-14 06:45] LABS: ANION GAP 9.2 (8-16); CARBON DIOXIDE 28.6 mmol/L (21-32); CREATININE 0.9 mg/dL (0.6-1.3); POTASSIUM 3.8 mmol/L (3.5-5.1)
--- NOTE | 2021-09-14 06:52 | NUR ---
WILL ENDORSE CARE TO DAYSHIFT RN. PT VITALS REMAIN STABLE. PT SLEEPING AT THIS TIME. HEPARIN GTT ADJUSTED PER PROTOCOL. NEXT PTT TO BE DRAWN AT 1230 09/14/21 AND ADJUST PER PROTOCOL.
[2021-09-14 07:02] LABS: BASOPHILS % (AUTO) 0.6 % (0.0-2.0); EOSINOPHILS # (AUTO) 0.2 K/uL (0-0.4); EOSINOPHILS % (AUTO) 3.1 % (0.0-4.0); HEMATOCRIT 33.3 % (36-48); HEMOGLOBIN 10.9 g/dL (12.0-16.0); LYMPHOCYTES # (AUTO) 2.6 K/uL (2.5-16.5); MEAN CORPUSCULAR HEMOGLOBIN 29 pg (27-31); MEAN CORPUSCULAR HGB CONC 33 g/dL (33-37); MEAN CORPUSCULAR VOLUME 88.2 fL (80-94); MONOCYTES # (AUTO) 0.7 K/uL (0.8-1.0); MONOCYTES % (AUTO) 12.9 % (1.7-9.3); NEUTROPHILS % (AUTO) 36.4 % (42.2-75.2); PLATELET COUNT (AUTO) 185 K/uL (140-450); RED BLOOD CELL COUNT(AUTO) 3.78 MIL/uL (4.20-5.40); RED CELL DISTRIBUTION WIDTH 14.6 % (11.6-13.7); WHITE BLOOD COUNT (AUTO) 5.6 K/uL (4.8-10.8)
--- NOTE | 2021-09-14 07:15 | NUR ---
RECEIVED REPORT FROM CORE WINDER NURSE FOR CONTINUITY OF CARE. PT A/O X4. ABLE TO MAKE NEEDS KNOWN. ON 2L NC. CARDIAC DIET. PT IS RESTING. PT BREATHING IS EVEN AND UNLABORED. NO SIGNS OR SYMPTOMS OF DISTRESS. SAFETY MEASURES IN PLACE. PT IS STABLE.
--- NOTE | 2021-09-14 07:56 | NUR ---
PATIENT HAS BEEN SCREENED AND CATEGORIZED MODERATE NUTRITION RISK. PATIENT WILL BE SEEN WITHIN 3-5 DAYS OF ADMISSION. [address]
[2021-09-14 08:00] VITALS: BP 141/79
[2021-09-14] MEDS: SPIRONOLACTONE 25 MG TAB PO SCH (08:48)
[2021-09-14] MEDS: ASPIRIN 81 MG TAB.CHEW PO SCH (08:48)
[2021-09-14] MEDS: carvediloL 6.25 MG TAB PO SCH ×2 (08:48→16:43)
[2021-09-14] MEDS: FUROSEMIDE 20 MG/2 ML VIAL IVP SCH ×2 (08:48→16:43)
[2021-09-14] MEDS: levETIRAcetam 100 MG/ML ORASYR PO SCH ×2 (08:49→20:45)
[2021-09-14] MEDS: ESCITALOPRAM 20 MG TAB PO SCH (08:49)
[2021-09-14] MEDS: ATORVASTATIN 20 MG TAB PO SCH (08:49)
[2021-09-14] MEDS: LIDOCAINE 5% 1 EA PATCH TP SCH (08:49)
[2021-09-14] MEDS: PANTOPRAZOLE 40 MG TABEC PO SCH (08:49)
[2021-09-14] MEDS: LOSARTAN 25 MG TAB PO SCH (08:49)
--- NOTE | 2021-09-14 11:51 | NUR ---
DC PLANNING PATIENT IS A 60 YR OLD FEMALE WHO PRESENTED TO THE [facility]/ED ON 09/12/21 FOR SHORTNESS OF BREATH, LOWER CHEST PAIN AND POSSIBLE SEIZURE. SW MET WITH CLIENT AT BEDSIDE FOR THE PURPOSE OF DISCUSSING AND GATHERING COLLATERAL INFORMATION. PATIENT REPORTS LIVING AT HOME WITH HER . PATIENT IDENTIFIES EMERGENCY CONTACT AND MEDICAL DECISION MAKER MER MUNROE () [phone]. SW INQUIRED A.D IN PLACE, PATIENT DENIED A.D. AT THIS TIME. SW PROVIDED INFORMATION AND EDUCATION ON A.D AND OFFERED TO PROVIDE PATIENT WITH A.D PACKET, PATIENT DECLINED. PATIENT REPORTED ADEQUATE FRIEND AND FAMILY SUPPORT. PATIENT REPORTS MEETING WITH PCP DR. CALLE REGULARLY. SW SPOKE WITH CLIENT ABOUT THE IMPORTANCE OF FOLLOW UP CARE WITH PCP. PATIENT ACKNOWLEDGED AND PROVIDED SW WITH PERMISSION TO SCHEDULE FOLLOW UP APPT. PATIENT REPORTED ACQUIRING MEDICATION FROM [facility] IN [place]. PATIENT REPORTED BEING AMBULATORY WITH NO ASSISTANCE NEEDED. PATIENT REPORTED THAT DAUGHTER WILL ASSIST WITH CARE AND TRANSPORTATION ONCE DISCHARGED. SW WILL MAKE APPT WITH PCP ONCE PATIENT HAS BEEN CLEARED FOR DISCHARGE. SW WILL FOLLOW NEEDED.
[2021-09-14 12:00] VITALS: BP 136/80
--- NOTE | 2021-09-14 12:00 | NUR ---
HEPARIN DRIP STILL RUNNING PER MD ORDER. PT IS RESTING. PT BREATHING IS EVEN AND UNLABORED. NO SIGNS OR SYMPTOMS OF DISTRESS. SAFETY MEASURES IN PLACE. PT IS STABLE.
[2021-09-14] MEDS: traMADol 50 MG TAB PO PRN (13:35)
[2021-09-14] MEDS: NACL 0.9% 1,000 ML IV SCH (13:36)
[2021-09-14] MEDS ORDERED: ALBUTEROL SULFATE/IPRATROPIU 3 ML SOL IH PRN (14:15)
[2021-09-14] MEDS: hePARIN / DEXT 5% PREMIX 250 ML IV SCH (14:20)
[2021-09-14 16:00] VITALS: BP 111/88
--- NOTE | 2021-09-14 16:00 | NUR ---
HEPARIN DRIP DCED PER MD ORDER. TROPONIN HAS LOWERED TO 1392 FROM 1532. PT IS RESTING. PT BREATHING IS EVEN AND UNLABORED. NO SIGNS OR SYMPTOMS OF DISTRESS. SAFETY MEASURES IN PLACE. PT IS STABLE.
[2021-09-14] MEDS: ALBUTEROL SULFATE/IPRATROPIU 3 ML SOL IH SCH (19:07)
--- NOTE | 2021-09-14 19:40 | NUR ---
RECEIVED BEDSIDE REPORT FROM DAY SHIFT NURSE. PATIENT IS AWAKE, ALERT, AND COOPERATIVE. RESPIRATION EVEN UNLABORED ON ROOM AIR. NO DISTRESS NOTED. SKIN IS WARM AND DRY. IV PATENT AND INTACT. PLAN OF CARE DISCUSSED. ALL SAFETY MEASURES IN PLACE. BED IS AT LOW POSITION. CALL LIGHT WITHIN REACH. WILL CONTINUE TO MONITOR
--- NOTE | 2021-09-14 19:40 | NUR ---
ENDORSED PT TO ESTIMATOR PRINTING NURSE FOR CONTINUITY OF CARE. POC DISCUSSED.
[2021-09-14 20:00] VITALS: BP 111/80
--- NOTE | 2021-09-14 20:00 | NUR ---
INITIAL ASSESSMENT DONE. PATIENT IS AMBULATORY, LIKES TO GET UP ON HER OWN TO USE THE BATHROOM. INSTRUCTED THE PATIENT TO USE CALL LIGHT WHEN GOING TO THE BATHROOM IN ORDER TO ASSISTS. PATIENT VERBALIZE UNDERSTANDING AND REPEAT OUR CONVERSATION. WILL CONTINUE TO MONITOR
[2021-09-14] MEDS: oxyCODONE/APAP 5/325 MG 1 TAB TAB PO PRN (20:45)
--- NOTE | 2021-09-14 20:45 | NUR ---
ALL SCHEDULED MEDS GIVEN PER ORDER. PATIENT ALSO COMPLAINED GENERALIZED PAIN 6/10 PRN PAIN MEDS GIVEN PER ORDER. WILL CONTINUE TO MONITOR
--- NOTE | 2021-09-14 22:55 | NUR ---
PATIENT COMPLAINED OF UNABLE TO FALL ASLEEP. PRN SLEEPING AID GIVEN PER ORDER. WILL CONTINUE TO MONITOR
[2021-09-15] VITALS: BP 113/67
--- NOTE | 2021-09-15 00:33 | NUR ---
VITALS WERE TAKEN. PATIENT IN STABLE CONDITION. NO DISTRESS NOTED. DENIES PAIN. WILL CONTINUE TO MONITOR
[2021-09-15] MEDS: LORazepam 1 MG TAB PO PRN ×2 (01:08→10:42)
--- NOTE | 2021-09-15 01:08 | NUR ---
PATIENT WOKE UP FEELING ANXIOUS AND ACCIDENTALLY PULLED OUT HER IV. NO ACTIVE BLEEDING NOTED. CANNULA TIP INTACT. PRN ATIVAN GIVEN PER ORDER. WILL CONTINUE TO MONITOR
--- NOTE | 2021-09-15 02:00 | NUR ---
MADE ROUNDS, FOUND PATIENT IN THE BATHROOM AGAIN, INSTRUCTED THE PATIENT TO USE THE CALL LIGHT WHEN GOING TO THE BATHROOM. PATIENT AGREED, WILL CONTINUE TO MONITOR.
[2021-09-15] MEDS: oxyCODONE/APAP 5/325 MG 1 TAB TAB PO PRN ×2 (03:41→10:42)
--- NOTE | 2021-09-15 03:41 | NUR ---
PATIENT COMPLAINED OF PAIN 8/. PRN PAIN MEDS GIVEN PER ORDER. WILL CONTINUE TO MONITOR
[2021-09-15 04:00] VITALS: BP 128/81
--- NOTE | 2021-09-15 04:00 | NUR ---
VITALS WERE TAKEN, PATIENT IN STABLE CONDITION, NO DISTRESS NOTED WILL CONTINUE TO MONITOR
[2021-09-15] MEDS: NACL 0.9% 1,000 ML IV SCH (05:06)
--- NOTE | 2021-09-15 05:45 | NUR ---
PATIENT COMPLAINED OF CHEST PAIN 01/17. VITALS WERE TAKEN BP 135/92 HR 89 RR 20 SPO2 95% PAGED MD TO NOTIFY, AWAITING FOR CALL BACK.
[2021-09-15] MEDS: traMADol 50 MG TAB PO PRN (06:18)
--- NOTE | 2021-09-15 06:20 | NUR ---
TRAMADOL IS GIVEN FOR PAIN RIGHT NOW STILL WAITING FOR MD TO CALL BACK.
[2021-09-15 06:48] LABS: BASOPHILS % (AUTO) 0.7 % (0.0-2.0); EOSINOPHILS # (AUTO) 0.1 K/uL (0-0.4); EOSINOPHILS % (AUTO) 3.4 % (0.0-4.0); HEMATOCRIT 32.7 % (36-48); HEMOGLOBIN 10.7 g/dL (12.0-16.0); LYMPHOCYTES % (AUTO) 47.9 % (20.5-51.1); MEAN CORPUSCULAR HEMOGLOBIN 29 pg (27-31); MEAN CORPUSCULAR HGB CONC 33 g/dL (33-37); MEAN CORPUSCULAR VOLUME 88.1 fL (80-94); MONOCYTES # (AUTO) 0.5 K/uL (0.8-1.0); MONOCYTES % (AUTO) 11.6 % (1.7-9.3); NEUTROPHILS # (AUTO) 1.5 K/uL (1.8-7.7); NEUTROPHILS % (AUTO) 36.4 % (42.2-75.2); PLATELET COUNT (AUTO) 183 K/uL (140-450); RED BLOOD CELL COUNT(AUTO) 3.71 MIL/uL (4.20-5.40); RED CELL DISTRIBUTION WIDTH 14.6 % (11.6-13.7); WHITE BLOOD COUNT (AUTO) 4.2 K/uL (4.8-10.8)
--- NOTE | 2021-09-15 07:05 | NUR ---
RECEIVED REPORT FROM EXTERMINATOR NURSE. PT IS AWAKE, A&OX4. BREATHING UNLABORED ON 2L O2 NC. IV IN PLACE ON LEFT FA, 22G RUNNING ON 60 NS, INFUSING WELL. PT IS STABLE AT THIS TIME.
--- NOTE | 2021-09-15 07:10 | NUR ---
ENDORSED PATIENT TO DAY SHIFT FOR CONTINUITY OF CARE. STILL WAITING FOR MD CALL BACK
[2021-09-15] MEDS: ALBUTEROL SULFATE/IPRATROPIU 3 ML SOL IH SCH (07:31)
[2021-09-15 07:49] LABS: ANION GAP 11.6 (8-16); CARBON DIOXIDE 25.3 mmol/L (21-32); CREATININE 1.1 mg/dL (0.6-1.3); POTASSIUM 3.9 mmol/L (3.5-5.1)
[2021-09-15 08:00] VITALS: BP 144/99
--- NOTE | 2021-09-15 08:00 | NUR ---
DISCUSSED PLAN OF CARE WITH THE MARKETING INTERN NURSE. WILL CONTINUE TO MONITOR.
--- NOTE | 2021-09-15 08:10 | NUR ---
RECEIVED CALL FROM LABS, TROPONIN IS STILL HIGH, BUT TRENDING DOWN. SENT A TEXT MESSAGE TO DOCTOR BJ AND INFORM HIM ABOUT PT'S NEW TROPONIN VALUE.
[2021-09-15] MEDS: levETIRAcetam 100 MG/ML ORASYR PO SCH (08:33)
[2021-09-15] MEDS: carvediloL 6.25 MG TAB PO SCH (08:33)
[2021-09-15] MEDS: LOSARTAN 25 MG TAB PO SCH (08:34)
[2021-09-15] MEDS: ESCITALOPRAM 20 MG TAB PO SCH (08:35)
[2021-09-15] MEDS: SPIRONOLACTONE 25 MG TAB PO SCH (08:36)
[2021-09-15] MEDS: FUROSEMIDE 20 MG/2 ML VIAL IVP SCH (08:36)
[2021-09-15] MEDS: PANTOPRAZOLE 40 MG TABEC PO SCH (08:37)
[2021-09-15] MEDS: ATORVASTATIN 20 MG TAB PO SCH (08:37)
--- NOTE | 2021-09-15 09:00 | NUR ---
PT SAID SHE WANTED TO VOMIT, GAVE MEDICATION PER DOCTOR'S ORDER. DUE MEDS GIVEN. PT COMPLAINED OF PAIN, 10 OUT OF 10, LOCATED AT HER LOWER BACK, PATCHED APPLIED PER MD ORDER. WILL REASSESS. PT REQUESTING DIFFERENT PAIN MEDICATION AND ATIVAN FOR CURRENT ANXIETY.
[2021-09-15] MEDS: ASPIRIN 81 MG TAB.CHEW PO SCH (09:37)
[2021-09-15] MEDS: LIDOCAINE 5% 1 EA PATCH TP SCH (09:37)
--- NOTE | 2021-09-15 10:42 | NUR ---
PT COMPLAINING OF PAIN, WITH A 10 OUT OF 10 PAINSCALE. DUE MEDS GIVEN PER MD'S ORDER.
[2021-09-15 12:00] VITALS: BP 134/83
--- NOTE | 2021-09-15 13:00 | NUR ---
PT DISCHARGED HOME. NO S/S OF DISTRESS. PERSONAL BELONGINGS IN POSSESSION. PT EDUCATED ON DISCHARGE INSTRUCTIONS. PT VERBALIZED UNDERSTANDING. IV REMOVED, CANULA INTACT. ID BAND REMOVED.
== END 2021-09-15 13:00 | disposition home or self-care (01) | DRG 292 ==
LOC: MED 05:53 → MTU 10:17
PROVIDERS: ADMIT Family Medicine; ATTEND Family Medicine
PROC: 4A10X4Z Monitoring of Central Nervous Electrical Activity, External Approach (ICD-10-PCS; principal; 2021-09-14)
DX: I50.43 Acute on chronic combined systolic (congestive) and diastolic (congestive) heart failure (principal); I24.9 Acute ischemic heart disease, unspecified; I42.9 Cardiomyopathy, unspecified; E44.0 Moderate protein-calorie malnutrition; I11.0 Hypertensive heart disease with heart failure; K21.9 Gastro-esophageal reflux disease without esophagitis; F41.9 Anxiety disorder, unspecified; J44.9 Chronic obstructive pulmonary disease, unspecified; F15.10 Other stimulant abuse, uncomplicated; E78.5 Hyperlipidemia, unspecified; Z20.822 Contact with and (suspected) exposure to COVID-19; E78.00 Pure hypercholesterolemia, unspecified; G40.909 Epilepsy, unspecified, not intractable, without status epilepticus; F32.A Depression, unspecified; F17.210 Nicotine dependence, cigarettes, uncomplicated; E11.9 Type 2 diabetes mellitus without complications; M54.50 Low back pain, unspecified; E87.6 Hypokalemia; Z86.73 Personal history of transient ischemic attack (TIA), and cerebral infarction without residual deficits; Z91.14 Patient's other noncompliance with medication regimen; I25.2 Old myocardial infarction; Z88.0 Allergy status to penicillin; Z88.8 Allergy status to other drugs, medicaments and biological substances; Z79.899 Other long term (current) drug therapy; Z68.34 Body mass index [BMI] 34.0-34.9, adult; E86.0 Dehydration
CPT/HCPCS: 36415; 70450; 71045; 80048; 80053; 80305; 81001; 82150; 82948; 83036; 83690; 83735; 83880; 84100; 84436; 84439; 84443; 84479; 84484; 85025; 85610; 85730; 87081; 94640; 96374; 96375; 99285; J1644; J1885; J1940; J2270; J2405; Q0092

== ENCOUNTER 2021-09-16 23:40 | Inpatient (IN) | payer OTHER ==
[~2021-09-16] VITALS: Ht 157.5 cm; Wt 83.5 kg
[~2021-09-16 23:40] MED LIST changes: +CARV6.25 PO; +FURO-572 PO; +LEVE750T3 PO; +LOSA25TA43 PO; +[UNRECOGNIZED DRUG - CODE] PO
[2021-09-17 00:14] VITALS: BP 138/73
--- NOTE | 2021-09-17 00:39 | NUR ---
60 Y/O FEMALE BIBS, C/O ANXIETY. PT STATES SHE HAS NOT BEEN ABLE TO GET TO HER DOCTOR OR TRANSPORTATION TO [facility] MACHINE TENDER HER MEDICATION OF ATIVAN AND NORCO. DENIES N/V/D; SKIN IS PINK/WARM/DRY; AAOX4 WITH EVEN AND STEADY GAIT; LUNGS CLEAR BL; HR EVEN AND REGULAR; PT DENIES ANY FEVER, CP, SOB, OR COUGH AT THIS TIME; PATIENT STATES PAIN OF 9/10 AT THIS TIME THAT RADIATES TO HER BACK; VSS; PATIENT POSITIONED FOR COMFORT; HOB ELEVATED; BEDRAILS UP X2; BED DOWN. ER MD MADE AWARE OF PT STATUS. HX: ANX, SZR, CHF, CHRONIC BACK PAIN PCN , LISINOPRIL MED: NORCO, ATIVAN
--- NOTE | 2021-09-17 00:58 | NUR ---
ER MD AT BEDSIDE EXAMINING PT
[2021-09-17] MEDS ORDERED: NITROGLYCERIN 2% 1 GM PKT TP ONE (01:05)
--- NOTE | 2021-09-17 01:22 | NUR ---
BLOOD SAMPLE OBTAINED AND WALKED TO LAB
--- NOTE | 2021-09-17 01:22 | NUR ---
XRAY AT BEDSIDE
--- NOTE | 2021-09-17 01:31 | NUR ---
BLOOD AND SWABS COLLECTED AND GIVEN TO HEATHER FROM LAB.
[2021-09-17] MEDS ORDERED: LORA-476 PO (01:41)
[2021-09-17] MEDS ORDERED: HYDR-5080 PO (01:41)
[2021-09-17] MEDS ORDERED: MSCON15 PO (01:41)
[2021-09-17 01:45] LABS: BASOPHILS # (AUTO) 0.1 K/uL (0.00-0.22); EOSINOPHILS # (AUTO) 0.1 K/uL (0-0.4); EOSINOPHILS % (AUTO) 1.5 % (0.0-4.0); HEMATOCRIT 34.6 % (36-48); HEMOGLOBIN 11.2 g/dL (12.0-16.0); LYMPHOCYTES # (AUTO) 2.3 K/uL (2.5-16.5); LYMPHOCYTES % (AUTO) 36.6 % (20.5-51.1); MEAN CORPUSCULAR HEMOGLOBIN 28 pg (27-31); MEAN CORPUSCULAR HGB CONC 32 g/dL (33-37); MEAN CORPUSCULAR VOLUME 87.5 fL (80-94); MONOCYTES # (AUTO) 0.9 K/uL (0.8-1.0); MONOCYTES % (AUTO) 14.2 % (1.7-9.3); NEUTROPHILS % (AUTO) 46.7 % (42.2-75.2); PLATELET COUNT (AUTO) 180 K/uL (140-450); RED BLOOD CELL COUNT(AUTO) 3.95 MIL/uL (4.20-5.40); RED CELL DISTRIBUTION WIDTH 14.7 % (11.6-13.7)
[2021-09-17 01:54] LABS: WHITE BLOOD COUNT (AUTO) 6.4 K/uL (4.8-10.8)
[2021-09-17 02:03] LABS: ALBUMIN 3.2 g/dL (3.4-5.0); ANION GAP 12.1 (8-16); CARBON DIOXIDE 25.4 mmol/L (21-32); POTASSIUM 3.5 mmol/L (3.5-5.1); TOTAL BILIRUBIN 0.6 mg/dL (0.0-1.0)
[2021-09-17 02:14] LABS: MAGNESIUM 1.8 mg/dL (1.8-2.4); PHOSPHORUS 3.5 mg/dL (2.5-4.9)
[2021-09-17] MEDS ORDERED: ASPIRIN 325 MG TAB PO ONE (02:15)
[2021-09-17] MEDS ORDERED: MAG SULF 2000 MG/WATER PREMIX 50 ML IV ONE (02:15)
[2021-09-17] MEDS ORDERED: FUROSEMIDE 40 MG/4 ML VIAL IVP ONE (02:15)
--- NOTE | 2021-09-17 04:59 | NUR ---
Patient will be admitted to care of DR BATISTA. Admited to TELE. Will go to room 106A. Belongings list completed. Report to AYLIN ALAS.
--- NOTE | 2021-09-17 06:10 | NUR ---
PATIENT TO ROOM 0500 NO C/O OF PAIN ON 2 LITERS N/C SAT 97 %. TEMP 98 B/P 139/88. LUNGS DIMINISH ON MONITOR SINUS ALERT X4. SKIN INTACT. NO DISTRESS NOTED.
--- NOTE | 2021-09-17 07:30 | NUR ---
RECEIVED REPORT FROM MULE TENDER NURSE. PT STABLE
[2021-09-17 08:00] VITALS: BP 131/92
[2021-09-17] MEDS ORDERED: traZODone 50 MG TAB PO PRN (09:50)
[2021-09-17] MEDS: HYDROcodone/APAP 7.5/325 MG 1 TAB PO PRN ×2 (10:54→23:16)
[2021-09-17] MEDS: LORazepam 1 MG TAB PO PRN ×2 (10:54→23:15)
--- NOTE | 2021-09-17 10:57 | NUR ---
PT COMPLAINED OF ANXIETY AND HEADACHE 11/17. MEDICATED FOR BOTH. EDUCATED PT ON RELAXATION TECHNIQUES. PT VERBALIZED UNDERSTANDING
[2021-09-17 12:00] VITALS: BP 130/84
--- NOTE | 2021-09-17 13:22 | NUR ---
SPOKE TO PT . UPDATE GIVEN. PT RESTING IN BED WITH EYES CLOSED. CALL LIGHT IN REACH. ALL SAFETY MEASURES IN PLACE. NO S/S OF DISTRESS
--- NOTE | 2021-09-17 14:49 | NUR ---
PT ASKED FOR PERCOCET FOR PAIN. NOTIFIED MD AND MEDICATION WAS DENIED. PT WAS OFFERED NON-MEDICATION PAIN INTERVENTIONS AND REFUSED. PT SAID SHE ONLY WANTS PAIN MEDICATION. PT WAS OFFERED PRESCRIBED PAIN MEDICATION AND REFUSED.
[2021-09-17 16:00] VITALS: BP 142/92
[2021-09-17] MEDS: ACETAMINOPHEN 325 MG TAB PO PRN (16:00)
--- NOTE | 2021-09-17 16:00 | NUR ---
PT STATED SHE WANTED TO LEAVE AMA. PT BECAME AGITATED AND YELLED AT STAFF. SECURITY WAS CALLED. PT WAS CALMED DOWN AND DECIDED TO STAY AFTER TALKING TO STAFF MEMBERS. CALL LIGHT IN REACH. ALL SAFETY MEASURES IN PLACE
--- NOTE | 2021-09-17 16:37 | NUR ---
09/17/2021 RD INITIAL ASSESSMENT COMPLETED. PLEASE REFER TO NUTRITION ASSESSMENT UNDER CARE ACTIVITY FOR ESTIMATED NUTRITIONAL NEEDS. CONTINUE WITH CARDIAC DIET. RD TO FOLLOW-UP IN 5-7 DAYS PATIENT IS LOW RISK. ANDREW LOPES RD
[2021-09-17] MEDS: FUROSEMIDE 40 MG/4 ML VIAL IVP SCH (17:00)
[2021-09-17] MEDS: carvediloL 6.25 MG TAB PO SCH (17:00)
[2021-09-17 18:07] LABS: BILIRUBIN,URINE 1+ (NEGATIVE); BLOOD, URINE 2+ (NEGATIVE); LEUKOCYTE ESTERASE ,URINE TRACE (NEGATIVE); NITRITE, URINE NEGATIVE (NEGATIVE); UGLUCOSE NEGATIVE (NEGATIVE)
[2021-09-17 19:26] LABS: APPEARANCE,URINE HAZY (CLEAR); COLOR,URINE STRAW (YELLOW)
[2021-09-17 19:27] LABS: RBC,URINE 11-20 (MOD) /HPF (0-5); WBC,URINE 0-5 /HPF (0-5)
--- NOTE | 2021-09-17 19:32 | NUR ---
ENDORSED PT TO FILLER SIFTER MACHINE NURSE
[2021-09-17 20:00] VITALS: BP 130/72
[2021-09-17 20:06] LABS: BARBITURATE, URINE NEGATIVE ng/ml (NEG <=200); BENZODIAZEPINE, URINE POSITIVE ng/mL (NEG <=200); CANNABINOID, URINE NEGATIVE ng/mL (NEG <=50); COCAINE, URINE NEGATIVE ng/mL (NEG <=300); OPIATE, URINE POSITIVE ng/mL (NEG <=2000); PHENCYCLIDINE SCREEN,URINE NEGATIVE ng/mL (NEG <=25)
[2021-09-17] MEDS ORDERED: FUROSEMIDE 40 MG TAB PO SCH (21:00)
[2021-09-17] MEDS: levETIRAcetam 500 MG TAB PO SCH (21:00)
[2021-09-17] MEDS ORDERED: LOVENOX 1MG/KG Q12H SUBQ SCH (21:00)
[2021-09-17] MEDS ORDERED: ONDANSETRON 4 MG TAB PO SCH (21:00)
[2021-09-17] MEDS ORDERED: ENOXAPARIN 80 MG/0.8 ML SYR SUBQ SCH (21:30)
[2021-09-18] VITALS: BP 117/79
--- NOTE | 2021-09-18 01:30 | NUR ---
PATIENT IS SLEEPING NO C/O OF PAIN AT 1999. ON MONITOR SINUS TEMP 97.8 B/P 130/72. PATIENT ASK FOR PAIN MEDS AND ATIVAN, BUT DID NOT SAY WHERE PAIN WAS. PATIENT APPEARS MED MED SEEKER. PATIENT TROPONIN TODAT 1055. AT [address] BATISTA TO LET HIM KNOW THE CHANGE. AT 0020. GAVE NO ORDERS AND IS AWARE OF TROPONIN.
[2021-09-18 04:00] VITALS: BP 115/76
[2021-09-18] MEDS: ACETAMINOPHEN 325 MG TAB PO PRN ×2 (06:40→10:35)
[2021-09-18 07:03] LABS: BASOPHILS % (AUTO) 0.8 % (0.0-2.0); EOSINOPHILS # (AUTO) 0.1 K/uL (0-0.4); EOSINOPHILS % (AUTO) 2.5 % (0.0-4.0); HEMATOCRIT 32.6 % (36-48); HEMOGLOBIN 10.5 g/dL (12.0-16.0); LYMPHOCYTES # (AUTO) 2.5 K/uL (2.5-16.5); LYMPHOCYTES % (AUTO) 46.4 % (20.5-51.1); MEAN CORPUSCULAR HEMOGLOBIN 28 pg (27-31); MEAN CORPUSCULAR HGB CONC 32 g/dL (33-37); MEAN CORPUSCULAR VOLUME 88.2 fL (80-94); MONOCYTES # (AUTO) 0.7 K/uL (0.8-1.0); MONOCYTES % (AUTO) 13.7 % (1.7-9.3); NEUTROPHILS % (AUTO) 36.6 % (42.2-75.2); PLATELET COUNT (AUTO) 173 K/uL (140-450); RED CELL DISTRIBUTION WIDTH 14.6 % (11.6-13.7); WHITE BLOOD COUNT (AUTO) 5.4 K/uL (4.8-10.8)
[2021-09-18 07:12] LABS: ANION GAP 9.7 (8-16); CARBON DIOXIDE 29.6 mmol/L (21-32); CREATININE 1.1 mg/dL (0.6-1.3); POTASSIUM 3.3 mmol/L (3.5-5.1)
[2021-09-18 07:22] LABS: MAGNESIUM 1.9 mg/dL (1.8-2.4); PHOSPHORUS 4.8 mg/dL (2.5-4.9)
--- NOTE | 2021-09-18 07:30 | NUR ---
RECEIVED REPORT FROM ACQUISITION MANAGER NURSE.
[2021-09-18 08:00] VITALS: BP 117/80
[2021-09-18] MEDS: carvediloL 6.25 MG TAB PO SCH ×2 (08:00→17:00)
[2021-09-18] MEDS ORDERED: ONDANSETRON 4 MG TAB PO PRN (08:15)
--- NOTE | 2021-09-18 08:17 | NUR ---
SPOKE TO DR. CHAPARRO ABOUT LOVENOX ORDER, ORDER IS PROPHYLACTIC AND DOSE SHOULD BE REDUCED PER PHARMACY.L
[2021-09-18] MEDS: LOSARTAN 25 MG TAB PO SCH (08:46)
[2021-09-18] MEDS: FUROSEMIDE 40 MG/4 ML VIAL IVP SCH ×2 (08:48→17:00)
[2021-09-18] MEDS: PANTOPRAZOLE 40 MG TABEC PO SCH (08:49)
[2021-09-18] MEDS: levETIRAcetam 500 MG TAB PO SCH ×2 (08:50→21:08)
[2021-09-18] MEDS: ASPIRIN 81 MG TAB.CHEW PO SCH (08:51)
[2021-09-18] MEDS: LORATADINE 10 MG TAB PO SCH (08:51)
[2021-09-18] MEDS: ATORVASTATIN 20 MG TAB PO SCH (08:52)
[2021-09-18] MEDS: ESCITALOPRAM 20 MG TAB PO SCH (08:52)
--- NOTE | 2021-09-18 08:59 | NUR ---
PT COMPLAINED OF ANXIETY OVER AMBULATING TO RESTROOM AFTER LASIX. PT REQUESTED ATIVAN FOR ANXIETY. WILL MEDICATE
[2021-09-18] MEDS ORDERED: SPIRONOLACTONE 25 MG TAB PO SCH (09:00)
[2021-09-18] MEDS ORDERED: POTASSIUM CHLORIDE 10 MEQ TABER PO PRN (09:10)
[2021-09-18] MEDS ORDERED: ONDANSETRON 4 MG/2 ML VIAL IM/IVP PRN (09:10)
[2021-09-18] MEDS ORDERED: MAG SULF 2000 MG/WATER PREMIX 50 ML IV PRN (09:10)
[2021-09-18] MEDS ORDERED: LORazepam 2 MG/ML VIAL IM/IVP PRN (09:10)
[2021-09-18] MEDS ORDERED: DOCUSATE SODIUM 100 MG GELCAP PO PRN (09:10)
[2021-09-18] MEDS ORDERED: ZOLPIDEM 5 MG TAB PO PRN (09:10)
[2021-09-18] MEDS: LORazepam 1 MG TAB PO PRN (09:28)
[2021-09-18 09:31] LABS: PROTHROMBIN TIME 11.5 secs (10.8-13.4)
[2021-09-18 09:45] LABS: CHOL/HDL RATIO 1.9 (1-4.5); MAGNESIUM 1.8 mg/dL (1.8-2.4); PHOSPHORUS 4.8 mg/dL (2.5-4.9); THYROID STIMULATING HORMONE 0.3 uIU/mL (0.34-3.74)
[2021-09-18] MEDS ORDERED: LORazepam 1 MG TAB PO PRN (10:52)
--- NOTE | 2021-09-18 11:39 | NUR ---
DC PLANNINYRS OLD FEMALE PATIENT WAS ADMITTED FROM HOME WITH A DX OF CHF EXACERBATION, HYPOXIA. PT HAS A HX OF CHF, HTN, SEIZURE, GERD, METH USE AND CVA. CXR SHOWED CARDIOMEGALY WITH POSSIBLE MILD INTERSTITIAL EDEMA. RAPID COVID TEST NEGATIVE. TROPONIN 1480 ADMINISTERED LASIX IV AND CONTINUED HOME MEDS. CONSULTED WITH SMALL MACHINE BINDERY OPERATOR. DC PLAN TO GO HOME WHEN STABLE. CM TO FOLLOW.
--- NOTE | 2021-09-18 11:45 | NUR ---
SPOKE TO DR CHAPARRO. PER CIRCUIT BOARD ASSEMBLER JOHN, ECHO WAS COMPLETED 05/20/21 AND PT IS NOT DUE FOR ANOTHER AT THIS TIME. RESULTS FROM PREVIOUS ECHO ARE IN CHART. EF 20-25%. NOTIFIED ZAIDA AND WILL DC ECHO
[2021-09-18 12:00] VITALS: BP 129/84
--- NOTE | 2021-09-18 15:30 | NUR ---
SPOKE TO PT FAMILY. UPDATE PROVIDED. PT RESTING IN BED. NO S/S OF DISTRESS. CALL LIGHT IN REACH. ALL SAFETY MEASURES IN PLACE
[2021-09-18 16:00] VITALS: BP 119/87
--- NOTE | 2021-09-18 18:06 | NUR ---
PSYCH CONSULT INFORMED, AWAITING CALL BACK AND TIME FOR TELEPSYCH.
--- NOTE | 2021-09-18 19:39 | NUR ---
ENDORSED PT TO OFFICE SYSTEMS TECHNOLOGY INSTRUCTOR NURSE
[2021-09-18 20:00] VITALS: BP 133/79
--- NOTE | 2021-09-18 20:00 | NUR ---
GET REPORT FROM MORNING NURSE, PATIENT IS LYING ON BED , VITAL SIGN IS WITHIN THE RANGE ,ALL DUE MEDS ARE GIVEN PER DR ORDER,CALL LIGHT IS WITHIN THE REACH , WILL CONTINUE TO MONITOR
[2021-09-18] MEDS: ENOXAPARIN 40 MG/0.4 ML SYR SUBQ SCH (21:10)
[2021-09-19] VITALS: BP 107/56
--- NOTE | 2021-09-19 00:30 | NUR ---
PATIENT IS LYING ON BED , VITAL SIGN IS WITHIN THE RANGE ,PATIENT C/O PAIN 3/10 TYLENOL GIVEN ALSO PT WANTS AMBIEN PRN GIVEN , ALL OTHER DUE MEDS ARE GIVEN PER DR ORDER,CALL LIGHT IS WITHIN THE REACH , WILL CONTINUE TO MONITOR
[2021-09-19] MEDS: ACETAMINOPHEN 325 MG TAB PO PRN ×2 (01:03→10:27)
[2021-09-19 04:00] VITALS: BP 132/87
--- NOTE | 2021-09-19 05:01 | NUR ---
PATIENT IS LYING ON BED, NO ANY COMPLAIN OF PAIN OR SOB NOTED, ALL DUE MEDS ARE GIVEN DR ORDER, CALL LIGHT IS WITHIN THE REACH ,WILL CONTINUE TO MONITOR
--- NOTE | 2021-09-19 06:00 | NUR ---
SLEEPING COMFORTABLY IN BED, RESPIRATIONS EVEN AND UNLABORED,NO DISTRESS NOTED.
[2021-09-19 06:07] LABS: HEPATITIS A ANTIBODY IGM Negative (Negative); HEPATITIS B CORE AB TOTAL Negative (Negative); HEPATITIS B SURFACE ANTIBODY Non Reactive (.); HEPATITIS B SURFACE ANTIGEN Negative (Negative)
[2021-09-19 06:44] LABS: BASOPHILS % (AUTO) 0.7 % (0.0-2.0); EOSINOPHILS # (AUTO) 0.1 K/uL (0-0.4); EOSINOPHILS % (AUTO) 1.9 % (0.0-4.0); HEMATOCRIT 34.9 % (36-48); HEMOGLOBIN 11.4 g/dL (12.0-16.0); LYMPHOCYTES # (AUTO) 2.1 K/uL (2.5-16.5); LYMPHOCYTES % (AUTO) 37.9 % (20.5-51.1); MEAN CORPUSCULAR HEMOGLOBIN 28 pg (27-31); MEAN CORPUSCULAR HGB CONC 33 g/dL (33-37); MEAN CORPUSCULAR VOLUME 87.3 fL (80-94); MONOCYTES # (AUTO) 0.8 K/uL (0.8-1.0); MONOCYTES % (AUTO) 13.8 % (1.7-9.3); NEUTROPHILS # (AUTO) 2.6 K/uL (1.8-7.7); NEUTROPHILS % (AUTO) 45.7 % (42.2-75.2); PLATELET COUNT (AUTO) 190 K/uL (140-450); RED CELL DISTRIBUTION WIDTH 14.5 % (11.6-13.7); WHITE BLOOD COUNT (AUTO) 5.7 K/uL (4.8-10.8)
[2021-09-19 07:09] LABS: ANION GAP 10.4 (8-16); CARBON DIOXIDE 29.1 mmol/L (21-32); CREATININE 1.2 mg/dL (0.6-1.3); POTASSIUM 3.5 mmol/L (3.5-5.1)
[2021-09-19 07:13] LABS: MAGNESIUM 1.7 mg/dL (1.8-2.4); PHOSPHORUS 4.2 mg/dL (2.5-4.9)
--- NOTE | 2021-09-19 07:25 | NUR ---
RECEIVED BEDSIDE REPORT FROM CASINO ENFORCEMENT AGENT NURSE FOR CONTINUITY OF CARE. PT IS AWAKE AND ALERT. A&OX4. ON 2L O2 NC WITH BREATHING UNLABORED. SKIN IS WARM, DRY, AND INTACT. CONTINENT OF THE BOWEL AND BLADDER. AMBULATORY INDEPENDENTLY. IV IS IN THE LEFT WRIST 22 GAUGE SALINE LOCKED. PT IS STABLE. PLAN OF CARE DISCUSSED.
[2021-09-19 08:00] VITALS: BP 142/73
[2021-09-19] MEDS ORDERED: ESCITALOPRAM 20 MG TAB PO SCH (09:00)
[2021-09-19] MEDS ORDERED: SPIRONOLACTONE 50 MG TAB PO SCH (09:00)
[2021-09-19] MEDS: levETIRAcetam 500 MG TAB PO SCH (09:08)
[2021-09-19] MEDS: ASPIRIN 81 MG TAB.CHEW PO SCH (09:09)
[2021-09-19] MEDS: LOSARTAN 25 MG TAB PO SCH (09:09)
[2021-09-19] MEDS: LORATADINE 10 MG TAB PO SCH (09:10)
[2021-09-19] MEDS: PANTOPRAZOLE 40 MG TABEC PO SCH (09:11)
[2021-09-19] MEDS: ATORVASTATIN 20 MG TAB PO SCH (09:11)
[2021-09-19] MEDS: carvediloL 6.25 MG TAB PO SCH (09:11)
[2021-09-19] MEDS: ESCITALOPRAM 20 MG TAB PO SCH (09:11)
[2021-09-19] MEDS: FUROSEMIDE 40 MG/4 ML VIAL IVP SCH (09:12)
[2021-09-19] MEDS: ENOXAPARIN 40 MG/0.4 ML SYR SUBQ SCH (09:13)
[2021-09-19] MEDS ORDERED: PANT40EC56 PO (09:20)
[2021-09-19] MEDS ORDERED: LOSA25TA1 PO (09:20)
[2021-09-19] MEDS ORDERED: CARV6.252 PO (09:20)
[2021-09-19] MEDS ORDERED: FURO-570 PO (09:20)
[2021-09-19] MEDS ORDERED: KEP500 PO (09:20)
[2021-09-19] MEDS ORDERED: DOCU-299 PO (09:20)
[2021-09-19] MEDS ORDERED: ESCI20TA49 PO (09:20)
[2021-09-19] MEDS ORDERED: SPIR25TA PO (09:20)
[2021-09-19] MEDS ORDERED: ASPI81CT95 PO (09:20)
[2021-09-19] MEDS ORDERED: LORA-476 PO ×2 (09:20)
[2021-09-19] MEDS ORDERED: LORA10TA19 PO (09:20)
[2021-09-19] MEDS ORDERED: ATOR20TA40 PO (09:20)
--- NOTE | 2021-09-19 09:26 | NUR ---
PT WAS GIVEN MAGNESIUM SULFATE 2 GRAM IVPB FOR MAGNESIUM LEVEL OF 1.7. PT IS STABLE AT THIS TIME. EDUCATION PROVIDED AND PT VERBALIZED UNDERSTANDING.
--- NOTE | 2021-09-19 10:28 | NUR ---
PT STATES HE HAS PAIN AT A SCALE OF 4/10. PT WAS GIVEN TYLENOL FOR PAIN. PAIN WAS STATED ALL OVER BODY. WILL MONITOR.
--- NOTE | 2021-09-19 11:52 | NUR ---
PT IS STABLE. PT WAS INFORMED ABOUT DISCHARGE BY DR. CHAPARRO AND CHANGED INTO OWN CLOTHING. PT IS STABLE. NO DISTRESS NOTED. TELE BOX REMOVED BY PATIENT. WILL REMOVE IV SHORTLY.
[2021-09-19 11:55] VITALS: BP 142/73
--- NOTE | 2021-09-19 12:36 | NUR ---
DISCHARGE INSTRUCTIONS EXPLAINED. PT VERBALIZED UNDERSTANDING. IV WAS REMOVED. ID BAND REMOVED. PT IS IN STABLE CONDITION ON RA. PT IS AMBULATORY INDEPENDENTLY. SHE DENIES ANY PAIN OR DISTRESS. CALLED DAUGHTER TO INSPECTOR BALANCE TRUING PATIENT WITH NUMBER PROVIDED BY PT. WILL WAIT FOR DAUGHTER TO ARRIVE.
--- NOTE | 2021-09-19 13:05 | NUR ---
PT WAS DISCHARGED FROM THE HOSPITAL. PICKED UP BY DAUGHTER TO GO HOME. PT IS STABLE. AMBULATED INDEPENDENTLY.
--- NOTE | 2021-09-19 13:45 | NUR ---
DC PLANNING LATE ENTRY PATIENT IS A 60 YR OLD FEMALE WHO PRESENTED TO [facility]/ED 09/17/21 FOR SHORTNESS OF BREATH. PATIENT HAS A HX OF HEART FAILURE. SW MET WITH CLIENT AT BEDSIDE FOR THE PURPOSE OF DISCUSSING AND GATHERING COLLATERAL INFORMATION. PATIENT REPORTS LIVING AT HOME WITH HER . PATIENT IDENTIFIES EMERGENCY CONTACT AND MEDICAL DECISION MAKER MER MUNROE () [phone]. SW INQUIRED A.D IN PLACE, PATIENT DENIED A.D. AT THIS TIME. SW PROVIDED INFORMATION AND EDUCATION ON A.D AND OFFERED TO PROVIDE PATIENT WITH A.D PACKET, PATIENT DECLINED. PATIENT REPORTED ADEQUATE FRIEND AND FAMILY SUPPORT. PATIENT REPORTS MEETING WITH PCP REGULARLY. SW SPOKE WITH CLIENT ABOUT THE IMPORTANCE OF FOLLOW UP CARE WITH PCP. PATIENT ACKNOWLEDGED AND PROVIDED SW WITH PERMISSION TO SCHEDULE FOLLOW UP APPT. PATIENT REPORTED ACQUIRING MEDICATION FROM [facility] [place]. PATIENT REPORTED BEING AMBULATORY WITH NO ASSISTANCE NEEDED. PATIENT REPORTED THAT DAUGHTER WILL ASSIST WITH CARE AND TRANSPORTATION ONCE DISCHARGED. SW WILL MAKE APPT WITH PCP ONCE PATIENT HAS BEEN CLEARED FOR DISCHARGE. SW INQUIRED ON ANY ADDITIONAL RESOURCES NEEDED; PATIENT REQUESTED INFORMATION ON [employer] DISABILITY REQUIREMENTS. SW PROVIDED PATIENT WITH EXTENSIVE PRINT OUTS OF [employer] REQUIREMENTS, ELIGIBILITY REQUIREMENTS AND WEBSITE ON HOW TO APPLY FOR [employer] BENEFITS.
--- NOTE | 2021-09-21 16:24 | NUR ---
JANNY PLANNING GENOVEVA OUTREACHED TO PATIENTS PCP (DR. LY) [phone] FOR THE PURPOSE OF SCHEDULING FOLLOW UP APPT. GENOVEVA SPOKE WITH POWDER LINE REPAIRER THAT SCHEDULED FOLLOW APPT SET FOR 09/25/21 AT 9AM AT [address] [place] [id number]. GENOVEVA OUTREACHED TO PATIENT TO PROVIDE PATIENT WITH APPT DETAILS THAT INCLUDED: TIME, DATE, ADDRESS AND PHONE NUMBER. PATIENT WAS APPRECIATIVE AND REPORTED THAT SHE WOULD BE SURE TO MAKE APPT.
== END 2021-09-19 12:55 | disposition home or self-care (01) | DRG 280 ==
LOC: MED 23:40 → MTU 09-17 04:01
PROVIDERS: ADMIT Student in an Organized Health Care Education/Training Program; ATTEND Student in an Organized Health Care Education/Training Program
DX: I21.4 Non-ST elevation (NSTEMI) myocardial infarction (principal); I50.43 Acute on chronic combined systolic (congestive) and diastolic (congestive) heart failure; E44.1 Mild protein-calorie malnutrition; I11.0 Hypertensive heart disease with heart failure; E78.5 Hyperlipidemia, unspecified; F32.A Depression, unspecified; K21.9 Gastro-esophageal reflux disease without esophagitis; E83.51 Hypocalcemia; D64.9 Anemia, unspecified; Z20.822 Contact with and (suspected) exposure to COVID-19; F41.1 Generalized anxiety disorder; J44.9 Chronic obstructive pulmonary disease, unspecified; Z68.33 Body mass index [BMI] 33.0-33.9, adult; Z86.73 Personal history of transient ischemic attack (TIA), and cerebral infarction without residual deficits; Z79.84 Long term (current) use of oral hypoglycemic drugs; Z79.899 Other long term (current) drug therapy; Z79.82 Long term (current) use of aspirin; Z88.0 Allergy status to penicillin; Z88.8 Allergy status to other drugs, medicaments and biological substances
CPT/HCPCS: 36415; 71045; 76705; 80048; 80053; 80305; 81001; 82150; 83036; 83690; 83735; 83880; 84100; 84134; 84436; 84443; 84484; 85025; 85610; 85730; 86704; 86706; 86708; 86709; 86803; 87081; 87340; 93005; 96365; 96366; 96375; 99285; J0696; J1650; J1940; J2060; J3475; J7060; Q0092; Q0162

== ENCOUNTER 2021-10-03 01:12 | Inpatient (IN) | payer OTHER, MEDICAID ==
[~2021-10-03] VITALS: Ht 177.8 cm; Wt 83.5 kg
[~2021-10-03 01:12] MED LIST changes: -CARV6.25 PO; -DIPH25TA53 PO; -FURO-572 PO; +HYDR-5080 PO; -LEVE750T3 PO; -LOSA25TA43 PO; +MSCON15 PO; -ONDA8TAB87 PO; -[UNRECOGNIZED DRUG - CODE] PO
[2021-10-03 01:24] VITALS: BP 108/75
--- NOTE | 2021-10-03 01:34 | NUR ---
pt ambulatory to bed 07.
[2021-10-03 02:32] LABS: BASOPHILS % (AUTO) 0.7 % (0.0-2.0); EOSINOPHILS % (AUTO) 0.9 % (0.0-4.0); HEMATOCRIT 39.1 % (36-48); HEMOGLOBIN 12.8 g/dL (12.0-16.0); LYMPHOCYTES # (AUTO) 1.1 K/uL (2.5-16.5); LYMPHOCYTES % (AUTO) 25.8 % (20.5-51.1); MEAN CORPUSCULAR HEMOGLOBIN 28 pg (27-31); MEAN CORPUSCULAR HGB CONC 33 g/dL (33-37); MEAN CORPUSCULAR VOLUME 86.3 fL (80-94); MONOCYTES # (AUTO) 0.6 K/uL (0.8-1.0); MONOCYTES % (AUTO) 13.4 % (1.7-9.3); NEUTROPHILS # (AUTO) 2.4 K/uL (1.8-7.7); NEUTROPHILS % (AUTO) 59.2 % (42.2-75.2); PLATELET COUNT (AUTO) 203 K/uL (140-450); RED BLOOD CELL COUNT(AUTO) 4.53 MIL/uL (4.20-5.40); RED CELL DISTRIBUTION WIDTH 14.7 % (11.6-13.7); WHITE BLOOD COUNT (AUTO) 4.1 K/uL (4.8-10.8)
[2021-10-03 02:35] LABS: ALBUMIN 3.4 g/dL (3.4-5.0); ANION GAP 13.5 (8-16); CARBON DIOXIDE 20.8 mmol/L (21-32); CREATININE 0.9 mg/dL (0.6-1.3); POTASSIUM 3.3 mmol/L (3.5-5.1); TOTAL BILIRUBIN 0.7 mg/dL (0.0-1.0)
--- NOTE | 2021-10-03 03:02 | NUR ---
Dr. Meade examining patient.
[2021-10-03] MEDS ORDERED: LORazepam 2 MG/ML VIAL IVP ONE (03:05)
[2021-10-03] MEDS ORDERED: FUROSEMIDE 40 MG/4 ML VIAL IVP SCH (03:05)
[2021-10-03] MEDS ORDERED: ASPIRIN 325 MG TAB PO ONE (03:05)
--- NOTE | 2021-10-03 04:03 | NUR ---
APPLIED PERIWICK TO PT FOR PT COMFORT .
--- NOTE | 2021-10-03 04:13 | NUR ---
TOOK COVID SWAB TO LAB
--- NOTE | 2021-10-03 04:42 | NUR ---
60 Y/O F BIB SELF FOR DIARRHEA X 1 DAY, CHEST PAIN X 1 DAY AND SOB X1 DAY. PT ALSO HAS BEEN LACKING SLEEP. PT WAS SEEN LAST WEEK FOR CHF EXACERATION. PT IS AMBULATORY , A&O X4. PT STATES SHE HAD HER SISTERS ON SATURDAYS AND SHE HAS BEEN FEELING SLEEPY, PMH: Cardiac Disorders (chf), Hx Cerebrovascular Accide, Hx COPD, Hx Gastroesophageal Reflu, Hx Hypertension, Hx Seizures;
--- NOTE | 2021-10-03 05:05 | NUR ---
Patient will be admitted to care of DR. CHAPARRO. Admited to TELE. Will go to room 104 B. Belongings list completed. Report to ANG.
--- NOTE | 2021-10-03 05:06 | NUR ---
PT TAKEN TO [facility] DEPT
--- NOTE | 2021-10-03 05:07 | NUR ---
The patient's care was reviewed and supervised by Aminata Davalos RN.
[2021-10-03 05:10] VITALS: BP 93/54
--- NOTE | 2021-10-03 05:10 | NUR ---
PT TRANSPORTED FROM ED VIA GURNEY. PT IS AAOX4. PT IS ON RA. PT HAS LEFT AC 20 GAUGE SALINE LOCK. CLEAR LUNG SOUNDS. ACTIVE BOWEL SOUNDS. ABD SOFT AND NONTENDER. PT IS ABLE TO AMBULATE. NO HEART MURMURS. SKIN INTACT. PT EDUCATED ASTRONAUTICAL ENGINEER LIGHT SYSTEM. CALL LIGHT WITHIN REACH. ALL SAFETY MEASURES TAKEN. WILL CONTINUE TO MONITOR THE PT.
[2021-10-03 06:54] LABS: BARBITURATE, URINE NEGATIVE ng/ml (NEG <=200); BENZODIAZEPINE, URINE POSITIVE ng/mL (NEG <=200)
[2021-10-03 06:55] LABS: CANNABINOID, URINE POSITIVE ng/mL (NEG <=50); COCAINE, URINE NEGATIVE ng/mL (NEG <=300); OPIATE, URINE NEGATIVE ng/mL (NEG <=2000); PHENCYCLIDINE SCREEN,URINE NEGATIVE ng/mL (NEG <=25)
--- NOTE | 2021-10-03 07:20 | NUR ---
ENDORSED PT TO DAY SHIFT RN FOR CONTINUITY OF CARE. PT IS STABLE.
[2021-10-03 08:00] VITALS: BP 104/68
[2021-10-03] MEDS ORDERED: POTASSIUM CHLORIDE 10 MEQ TABER PO PRN (09:10)
[2021-10-03] MEDS ORDERED: MAG SULF 2000 MG/WATER PREMIX 50 ML IV PRN (09:10)
--- NOTE | 2021-10-03 10:00 | NUR ---
PATIENT HAS BEEN SCREENED AND CATEGORIZED MODERATE NUTRITION RISK. PATIENT WILL BE SEEN WITHIN 3-5 DAYS OF ADMISSION. [address]
--- NOTE | 2021-10-03 10:02 | NUR ---
in bed resting and no apparent distress noted.
[2021-10-03 12:00] VITALS: BP 118/78
--- NOTE | 2021-10-03 12:20 | NUR ---
DC PLANNINYRS OLD FEMALE PATIENT WAS ADMITTED FROM HOME WITH A DX OF NON-SEMI HEART FAILURE. PT HAS A HX OF CHF, HTN, SEIZURE, GERD, METH USE AND CVA. CXR SHOWED CARDIOMEGALY WITH POSSIBLE MILD INTERSTITIAL EDEMA. RAPID COVID TEST NEGATIVE. TROPONIN 1686 ON ADMISSION, ADMINISTERED LASIX IV AND CONTINUED HOME MEDS. CONSULTED WITH PRINCIPAL SCIENTIST. DC PLAN TO GO HOME WHEN STABLE. CM TO FOLLOW. Addendum: 10/06/21 at 1202 by Jerilyn Jain RN DC PLANNING: SEEN BY PRINCIPAL SCIENTIST CHANGED LASIX TO 40 MG PO BID AND CONTINUED ALL MEDS AND CONTINUED OUTPATIENT CARDIOLOGY FOLLOW UP . DC PLAN TO GO HOME AND FOLLOW UP WITH OUT PATIENT PRINCIPAL SCIENTIST. CM TO FOLLOW
[2021-10-03] MEDS ORDERED: traZODone 50 MG TAB PO PRN (13:05)
[2021-10-03] MEDS ORDERED: DOCUSATE SODIUM 100 MG GELCAP PO PRN (13:10)
[2021-10-03] MEDS ORDERED: ONDANSETRON 4 MG/2 ML VIAL IM/IVP PRN (13:10)
[2021-10-03] MEDS ORDERED: ZOLPIDEM 5 MG TAB PO PRN (13:10)
[2021-10-03] MEDS ORDERED: POTASSIUM CHLORIDE 10 MEQ TABER PO SCH (13:40)
[2021-10-03] MEDS: LORazepam 2 MG/ML VIAL IM/IVP PRN ×2 (13:57→19:53)
[2021-10-03 14:01] LABS: BASOPHILS % (AUTO) 0.5 % (0.0-2.0); EOSINOPHILS % (AUTO) 0.8 % (0.0-4.0); HEMATOCRIT 37.9 % (36-48); HEMOGLOBIN 12.3 g/dL (12.0-16.0); LYMPHOCYTES # (AUTO) 1.2 K/uL (2.5-16.5); LYMPHOCYTES % (AUTO) 41.3 % (20.5-51.1); MEAN CORPUSCULAR HEMOGLOBIN 28 pg (27-31); MEAN CORPUSCULAR HGB CONC 33 g/dL (33-37); MEAN CORPUSCULAR VOLUME 86.1 fL (80-94); MONOCYTES # (AUTO) 0.5 K/uL (0.8-1.0); MONOCYTES % (AUTO) 15.5 % (1.7-9.3); NEUTROPHILS # (AUTO) 1.2 K/uL (1.8-7.7); NEUTROPHILS % (AUTO) 41.9 % (42.2-75.2); PLATELET COUNT (AUTO) 199 K/uL (140-450); RED CELL DISTRIBUTION WIDTH 14.1 % (11.6-13.7)
[2021-10-03 14:12] LABS: ANION GAP 12.2 (8-16); CARBON DIOXIDE 22.1 mmol/L (21-32); CREATININE 0.9 mg/dL (0.6-1.3); POTASSIUM 3.3 mmol/L (3.5-5.1)
[2021-10-03] MEDS: FUROSEMIDE 40 MG/4 ML VIAL IVP SCH (14:12)
[2021-10-03 14:26] LABS: CHOL/HDL RATIO 1.5 (1-4.5); THYROID STIMULATING HORMONE 0.22 uIU/mL (0.34-3.74)
[2021-10-03 16:00] VITALS: BP 109/73
--- NOTE | 2021-10-03 17:12 | NUR ---
DC PLANNING PATIENT IS A 67-YEAR-OLD FEMALE ADMITTED ON 10/01/2021 TO THE [facility]/ED DUE LOW BLOOD SUGAR. PATIENT SEEMS TO BE INCOMPLIANT WITH MEDICATIONS, PATIENT WAS FOUND ALTERED WITH SUGAR LEVELS TO BE 46. PATIENT HAS LONG HX. OF DIABETES. GENOVEVA MET WITH PATIENT AT BEDSIDE TO DISCUSS AND GATHER HER COLLATERAL INFORMATION. PATIENT WAS AWAKE AND ALERT DURING THE MEETING WITH GENOVEVA. PATIENT REPORTED LIVING AT HOME WITH HER DAUGHTER ASHOK VELIZ IN [facility]. PATIENT STATED THAT SHE IS GETTING ABOUT 68 HRS OF IHSS AND THAT HER DAUGHTER ASHOK [phone] IS HER IHSS CAREGIVER, EMERGENCY CONTACT AND MEDICAL DECISION MAKER. PATIENT HAS REPORTED HAVING ADVANCE DIRECTIVES,IN PLACE AND DECLINED A.D. INF. PACKET PROVIDED BY GENOVEVA. PATIENT REPORTED NOT HAVING ANY ISSUES GETTING OR TAKING HER MEDICATIONS FROM [facility] NEAR HER HOME. PATIENT STATED HAVING ONLY A CANE HER DME AT HOME AND BEEN ACTIVE AND INDEPENDENT. PATIENT REPORTED GOING TO SEE HER PCP ITZEL RODRIGEZ AT IN [place], LAST VISIT WAS ABOUT A MONTHS AGO AND REPORTED THAT HER DAUGHTER USUALLY MAKES HER SCHEDULED APPOINTMENTS AT HIS OFFICE. GENOVEVA INFORMED PATIENT THAT THESE STOKER ERECTOR AND SERVICER HAS MADE A FOLLOW UP APPOINTMENT FOR PATIENT ON 10/10/2021 AT 10:00 AM. PATIENT AGREED TO ATTEND TO HER SCHEDULED APPT. AND GENOVEVA PROVIDED PATIENT WITH A A NOTE WITH ALL INFORMATION, DATE, TIME AND ADDRESS FOR HER ALREADY SCHEDULE APPOINTMENT. PATIENT STATED THAT HER DAUGHTER OR FAMILY WILL ASSIST WITH TRANSPORTATION BACK HOME WHEN SHE IS READY TO DC FROM [facility]. GENOVEVA WILL FOLLOW UP NEEDED. Addendum: 10/03/21 at 1718 by Pamela CLOUD DATA ERROR ASSESSMENT ABOVE IS FOR ANOTHER PATIENT INF. IS INCORRECT
[2021-10-03] MEDS: carvediloL 6.25 MG TAB PO SCH (17:32)
[2021-10-03] MEDS: HYDROcodone/APAP 5/325 MG 1 TAB TAB PO PRN ×2 (17:34→21:32)
--- NOTE | 2021-10-03 19:29 | NUR ---
RECEIVED BEDSIDE REPORT FROM DAY SHIFT RN FOR CONTINUITY OF CARE. PT IS AWAKE IN BED. AAOX4. PT IS ON RA NOT IN ANY RESPIRATORY DISTRESS. CALL LIGHT WITHIN REACH. ALL SAFETY MEASURES TAKEN. WILL CONTINUE TO MONITOR THE PT.
[2021-10-03 20:00] VITALS: BP 111/80
[2021-10-03] MEDS: levETIRAcetam 500 MG TAB PO SCH (21:32)
--- NOTE | 2021-10-03 21:35 | NUR ---
ALL DUE MEDS GIVEN. PT WANTED SOMETHING FOR PAIN AND GIVEN PER MD ORDER. NO ADVERSE EFFECT NOTED. WILL CONTINUE TO MONITOR THE PT.
--- NOTE | 2021-10-03 23:50 | NUR ---
PT IS SLEEPING IN BED COMFORTABLY. PT IS NOT IN ANY DISTRESS. BREATHING EVEN AND UNLABORED. CALL LIGHT WITHIN REACH. ALL SAFETY MEASURES TAKEN. WILL CONTINUE TO MONITOR THE PT.
[2021-10-04] VITALS: BP 112/80
[2021-10-04] MEDS: LORazepam 2 MG/ML VIAL IM/IVP PRN ×6 (00:01→23:31)
[2021-10-04] MEDS: HYDROcodone/APAP 5/325 MG 1 TAB TAB PO PRN ×5 (02:21→23:26)
[2021-10-04 04:00] VITALS: BP 102/79
[2021-10-04 04:23] LABS: BASOPHILS % (AUTO) 0.8 % (0.0-2.0); EOSINOPHILS # (AUTO) 0.1 K/uL (0-0.4); EOSINOPHILS % (AUTO) 3.5 % (0.0-4.0); HEMATOCRIT 37.1 % (36-48); LYMPHOCYTES # (AUTO) 2.2 K/uL (2.5-16.5); LYMPHOCYTES % (AUTO) 56.5 % (20.5-51.1); MEAN CORPUSCULAR HEMOGLOBIN 28 pg (27-31); MEAN CORPUSCULAR HGB CONC 33 g/dL (33-37); MONOCYTES # (AUTO) 0.6 K/uL (0.8-1.0); MONOCYTES % (AUTO) 14.2 % (1.7-9.3); PLATELET COUNT (AUTO) 183 K/uL (140-450); RED BLOOD CELL COUNT(AUTO) 4.26 MIL/uL (4.20-5.40); RED CELL DISTRIBUTION WIDTH 14.2 % (11.6-13.7); WHITE BLOOD COUNT (AUTO) 3.9 K/uL (4.8-10.8)
--- NOTE | 2021-10-04 04:30 | NUR ---
PT IS SLEEPING IN BED COMFORTABLY. PT IS NOT IN ANY DISTRESS. CALL LIGHT WITHIN REACH. ALL SAFETY MEASURES TAKEN. WILL CONTINUE TO MONITOR THE PT.
[2021-10-04 04:47] LABS: ANION GAP 10.8 (8-16); CARBON DIOXIDE 23.7 mmol/L (21-32); CREATININE 1.1 mg/dL (0.6-1.3); POTASSIUM 3.5 mmol/L (3.5-5.1)
[2021-10-04 04:51] LABS: MAGNESIUM 1.6 mg/dL (1.8-2.4); PHOSPHORUS 4.3 mg/dL (2.5-4.9)
--- NOTE | 2021-10-04 05:58 | NUR ---
PT IS SLEEPING IN BED COMFORTABLY. PT IS NOT IN ANY DISTRESS. CALL LIGHT WITHIN REACH. ALL SAFETY MEASURES TAKEN. WILL CONTINUE TO MONITOR THE PT.
--- NOTE | 2021-10-04 07:28 | NUR ---
ENDORSED PT TO DAY SHIFT RN FOR CONTINUITY OF CARE. PT IS STABLE.
[2021-10-04 08:00] VITALS: BP 123/78
--- NOTE | 2021-10-04 08:00 | NUR ---
RECEIVED PATIENT LAYING IN BED ASLEEP, OFF GOING NURSE STATES PATIENT IS A&OX4. PATIENT CAME IN WITH A CHIEF COMPLAINT OF CHEST PAIN, DIARRHEA AND SOB. DIAGNOSIS NON-STEMI, CHF AND CARDIOMYOPATHY. PATIENT LUNGS WERE CLEAR UPON AUSCULTATION PATIENT IS ON ROOM AIR WITH AN OXYGEN SAT OF 100%, BOWEL SOUNDS NORMAL ACTIVE SKIN WARM DRY AND INTACT. PT TROPIN IS ELEVATED 1348. PATIENT CALL LIGHT WITHIN REACH, BELONGINGS WITHIN REACH, BED AT LOWEST POSITION AND LOCKED. WILL CONTINUE TO MONITOR.
[2021-10-04] MEDS: carvediloL 6.25 MG TAB PO SCH ×2 (08:33→17:14)
[2021-10-04] MEDS: LOSARTAN 25 MG TAB PO SCH (08:33)
[2021-10-04] MEDS: ATORVASTATIN 20 MG TAB PO SCH (08:34)
[2021-10-04] MEDS: levETIRAcetam 500 MG TAB PO SCH ×2 (08:34→21:00)
[2021-10-04] MEDS: SPIRONOLACTONE 25 MG TAB PO SCH (08:34)
[2021-10-04] MEDS: LORATADINE 10 MG TAB PO SCH (08:34)
[2021-10-04] MEDS: FUROSEMIDE 40 MG/4 ML VIAL IVP SCH ×2 (08:35→21:00)
[2021-10-04] MEDS: PANTOPRAZOLE 40 MG TABEC PO SCH (08:35)
[2021-10-04] MEDS: ESCITALOPRAM 20 MG TAB PO SCH (08:35)
[2021-10-04] MEDS: ASPIRIN 81 MG TAB.CHEW PO SCH (08:35)
[2021-10-04] MEDS ORDERED: SPIRONOLACTONE 50 MG TAB PO SCH (09:00)
--- NOTE | 2021-10-04 10:00 | NUR ---
PATIENT ASKING TO SEE A AUTOMOTIVE DETAILER, AUTOMOTIVE DETAILER INFORMED. WILL FOLLOW UP.
[2021-10-04 12:00] VITALS: BP 115/59
--- NOTE | 2021-10-04 12:15 | NUR ---
DC PLANNING PATIENT IS A 60 YR OLD FEMALE WHO PRESENTED TO THE [facility]/ED 09/17/21 FOR SHORTNESS OF BREATH. PATIENT HAS A HX OF HEART FAILURE. SW MET WITH CLIENT AT BEDSIDE FOR THE PURPOSE OF DISCUSSING AND GATHERING COLLATERAL INFORMATION. PATIENT REPORTS LIVING AT HOME WITH HER , DAUGHTER AND TWO GRANDCHILDREN. PATIENT IDENTIFIES EMERGENCY CONTACT AND MEDICAL DECISION MAKER MER MUNROE () [phone]. SW INQUIRED A.D IN PLACE, PATIENT DENIED A.D. AT THIS TIME. SW PROVIDED INFORMATION AND EDUCATION ON A.D AND OFFERED TO PROVIDE PATIENT WITH A.D PACKET, PATIENT DECLINED. PATIENT REPORTED ADEQUATE FRIEND AND FAMILY SUPPORT. PATIENT REPORTS MEETING WITH PCP (DR. DUNHAM) ON 09/25. WHO REFERRED HER TO A LAYBOY TENDER. PATIENT WAS UNABLE TO RECALL NAME OR PHONE NUMBER OF DR. PATIENT REPORTS HAVING AN UPCOMING APPT WITH LAYBOY TENDER HOWEVER, WAS UNSURE WHAT DAY OR TIME OF APPT. SW WILL FOLLOW UP WITH PCP TO IDENTIFY DR AND GATHER APPT INFORMATION. SW SPOKE WITH CLIENT ABOUT THE IMPORTANCE OF FOLLOW UP CARE WITH PCP ONCE DC. PATIENT ACKNOWLEDGED AND REQUESTED SW ASSISTANCE IN ACQUIRING INFORMATION ON UPCOMING. PATIENT REPORTED ACQUIRING MEDICATION FROM [facility] [place]. PATIENT REPORTED BEING AMBULATORY WITH NO ASSISTANCE NEEDED. PATIENT REPORTED THAT DAUGHTER WILL ASSIST WITH CARE AND TRANSPORTATION ONCE CLEARED DISCHARGED. SW INQUIRED ON ADDITIONAL RESOURCES NEEDED; PATIENT REQUESTED INFORMATION ON SSDI INFORMATION. Addendum: 10/04/21 at 1551 by Blaine CLOUD DC PLANNING SW PROVIDED PATIENT WITH EXTENSIVE PRINT OUTS OF SSDI REQUIREMENTS, ELIGIBILTY REQUIREMENTS AND WEBSITE ON HOW TO APPLY FOR BENEFITS. SW IDENTIFIED PATIENTS LAYBOY TENDER AND PROVIDED PATIENT WITH INFORMATION AND APPT CARD THAT INCLUDED DATE, TIME, PLACE AND PHONE NUMBER. PATIENTS APPT IS SET FOR 10/31/21 AT 930 W/DR VAUGHAN AT [address] [address], . SW OUTREACHED TO PATIENTS DAUGHTER JOE AT [phone] TO NOTIFY HER OF EXTENSIVE SSDI RESOURCES PROVIDED TO PATIENT. SW ENCOURAGED PATIENTS DAUGHTER TO REVIEW WITH PATIENT. SW PROVIDED APPT INFORMATION TO DAUGHTER WELL. DAUGHTER WAS IN UNDERSTANDING AND REPORTED SHE WOULD BE TAKIGN PATIENT TO LAYBOY TENDER APPT.
--- NOTE | 2021-10-04 13:00 | NUR ---
PATIENT EDUCATION ON CARDIAC DIET, PATIENT VERBALIZED UNDERSTANDING.
[2021-10-04 16:00] VITALS: BP 115/73
--- NOTE | 2021-10-04 17:38 | NUR ---
UA SPECIMEN SENT TO LAB
[2021-10-04 20:00] VITALS: BP 115/67
[2021-10-05] VITALS: BP 115/67
--- NOTE | 2021-10-05 02:27 | NUR ---
PATIENT AWAKE ALERT ON ROOM AIR SAT 98%. TEMP 97.8 SINUS ON MONITOR HAS HL IN UPPER LEFT ARM 20 GA. PATIENT ASK FOR NORCO 5/325MG,ATIVAN 1 MG IVP 2326 BOTH GIVEN. PATIENT TO SLEEP WITH NO DISTRESS NOTED.
[2021-10-05 04:00] VITALS: BP 112/67
[2021-10-05] MEDS: LORazepam 2 MG/ML VIAL IM/IVP PRN ×4 (04:00→21:44)
[2021-10-05] MEDS: HYDROcodone/APAP 5/325 MG 1 TAB TAB PO PRN ×4 (04:00→23:20)
[2021-10-05] MEDS: FUROSEMIDE 40 MG/4 ML VIAL IVP SCH (05:02)
[2021-10-05 07:07] LABS: BASOPHILS % (AUTO) 0.4 % (0.0-2.0); EOSINOPHILS # (AUTO) 0.1 K/uL (0-0.4); EOSINOPHILS % (AUTO) 2.9 % (0.0-4.0); HEMATOCRIT 36.8 % (36-48); HEMOGLOBIN 11.9 g/dL (12.0-16.0); LYMPHOCYTES # (AUTO) 1.8 K/uL (2.5-16.5); LYMPHOCYTES % (AUTO) 39.7 % (20.5-51.1); MEAN CORPUSCULAR HEMOGLOBIN 28 pg (27-31); MEAN CORPUSCULAR HGB CONC 33 g/dL (33-37); MEAN CORPUSCULAR VOLUME 86.3 fL (80-94); MONOCYTES # (AUTO) 0.7 K/uL (0.8-1.0); MONOCYTES % (AUTO) 14.4 % (1.7-9.3); NEUTROPHILS # (AUTO) 1.9 K/uL (1.8-7.7); NEUTROPHILS % (AUTO) 42.6 % (42.2-75.2); PLATELET COUNT (AUTO) 197 K/uL (140-450); RED BLOOD CELL COUNT(AUTO) 4.26 MIL/uL (4.20-5.40); RED CELL DISTRIBUTION WIDTH 14.6 % (11.6-13.7); WHITE BLOOD COUNT (AUTO) 4.6 K/uL (4.8-10.8)
[2021-10-05 07:11] LABS: ANION GAP 14.8 (8-16); CARBON DIOXIDE 22.1 mmol/L (21-32); CREATININE 1.3 mg/dL (0.6-1.3); POTASSIUM 3.9 mmol/L (3.5-5.1)
[2021-10-05 07:24] LABS: MAGNESIUM 1.7 mg/dL (1.8-2.4); PHOSPHORUS 5.1 mg/dL (2.5-4.9)
[2021-10-05 08:00] VITALS: BP 118/83
[2021-10-05] MEDS: ATORVASTATIN 20 MG TAB PO SCH (08:55)
[2021-10-05] MEDS: SPIRONOLACTONE 25 MG TAB PO SCH (08:55)
[2021-10-05] MEDS: levETIRAcetam 500 MG TAB PO SCH ×2 (08:55→20:40)
[2021-10-05] MEDS: PANTOPRAZOLE 40 MG TABEC PO SCH (08:55)
[2021-10-05] MEDS: ASPIRIN 81 MG TAB.CHEW PO SCH (08:56)
[2021-10-05] MEDS: ESCITALOPRAM 20 MG TAB PO SCH (08:56)
[2021-10-05] MEDS: carvediloL 6.25 MG TAB PO SCH ×2 (08:56→18:30)
[2021-10-05] MEDS: LOSARTAN 25 MG TAB PO SCH (08:56)
[2021-10-05] MEDS: LORATADINE 10 MG TAB PO SCH (08:56)
--- NOTE | 2021-10-05 10:00 | NUR ---
NO CHANGES AT THIS TIME PATIENT STABLE.
[2021-10-05] MEDS: FUROSEMIDE 40 MG TAB PO SCH (18:30)
[2021-10-05 18:32] VITALS: BP 95/62
--- NOTE | 2021-10-05 19:30 | NUR ---
RECEIVED BEDSIDE REPORT FROM DAY SHIFT RN FOR CONTINUITY OF CARE.AAOX4. PT IS ON RA NOT IN ANY RESPIRATORY DISTRESS. DENIES PAIN.CALL LIGHT WITHIN REACH. ALL SAFETY MEASURES IN PLACE. WILL CONTINUE TO MONITOR.
[2021-10-05 20:00] VITALS: BP 94/63
--- NOTE | 2021-10-05 21:45 | NUR ---
ATIVAN PRN GIVEN FOR AGITATION. WILL CONTINUE TO MONITOR.
--- NOTE | 2021-10-05 23:22 | NUR ---
MAGNESIUM 1.7. MAG-RIDER GIVEN.WILL CONTINUE TO MONITOR.
[2021-10-06] VITALS: BP 125/89
--- NOTE | 2021-10-06 02:00 | NUR ---
PT IS SLEEPING IN BED COMFORTABLY. PT IS NOT IN ANY DISTRESS. CALL LIGHT WITHIN REACH. ALL SAFETY MEASURES TAKEN. WILL CONTINUE TO MONITOR THE PT.
[2021-10-06] MEDS: ACETAMINOPHEN 325 MG TAB PO PRN ×2 (02:53→12:32)
[2021-10-06] MEDS: LORazepam 2 MG/ML VIAL IM/IVP PRN ×2 (02:53→16:31)
[2021-10-06 03:58] LABS: APPEARANCE,URINE CLEAR (CLEAR); BILIRUBIN,URINE NEGATIVE (NEGATIVE); BLOOD, URINE 1+ (NEGATIVE); COLOR,URINE YELLOW (YELLOW); LEUKOCYTE ESTERASE ,URINE NEGATIVE (NEGATIVE); NITRITE, URINE NEGATIVE (NEGATIVE); UGLUCOSE NEGATIVE (NEGATIVE)
[2021-10-06 04:00] VITALS: BP 115/69
[2021-10-06] MEDS: HYDROcodone/APAP 5/325 MG 1 TAB TAB PO PRN ×3 (04:00→20:17)
--- NOTE | 2021-10-06 04:00 | NUR ---
PT COMPLAINING OF SHOULDER PAIN.11/17. PRN PAIN MED GIVEN. WILL CONTINUE TO MONITOR.
[2021-10-06 05:02] LABS: RBC,URINE 0-5 /HPF (0-5); WBC,URINE 0-5 /HPF (0-5)
[2021-10-06 07:12] LABS: HEMATOCRIT 35.2 % (36-48); HEMOGLOBIN 11.3 g/dL (12.0-16.0); MEAN CORPUSCULAR HEMOGLOBIN 28 pg (27-31); MEAN CORPUSCULAR HGB CONC 32 g/dL (33-37); MEAN CORPUSCULAR VOLUME 87.4 fL (80-94); PLATELET COUNT (AUTO) 175 K/uL (140-450); RED BLOOD CELL COUNT(AUTO) 4.03 MIL/uL (4.20-5.40); RED CELL DISTRIBUTION WIDTH 14.4 % (11.6-13.7); WHITE BLOOD COUNT (AUTO) 5.4 K/uL (4.8-10.8)
[2021-10-06 07:44] LABS: ANION GAP 13.9 (8-16); CARBON DIOXIDE 23.2 mmol/L (21-32); CREATININE 1.1 mg/dL (0.6-1.3); POTASSIUM 4.1 mmol/L (3.5-5.1)
[2021-10-06 07:55] LABS: MAGNESIUM 2.3 mg/dL (1.8-2.4); PHOSPHORUS 4.6 mg/dL (2.5-4.9)
[2021-10-06 07:58] VITALS: BP 116/76
--- NOTE | 2021-10-06 08:00 | NUR ---
RECEIVED REPORT FROM [facility]. PT A/O X3. ABLE TO MAKE NEEDS KNOWN. NO SOB OR RESPIRATORY DISTRESS. ON RA. STATES R SHOULDER/ARM PAIN. STATES "I THINK IT'S ARTHRITIS" PT STATES "I HAVE ARTHRITIS ON MY BACK". PT STATES FAMILIAR FEELING. EXPLAINED PAIN MEDICATION SCHEDULE. PT VERBALIZED UNDERSTANDING. PT DENIES CHEST PAIN/HEADACHE. PROVIDED EXTRA BLANKETS FOR PT AND GOWN CHANGE. VSS. NEEDS ALL MET AT THIS TIME. SAFETY MEASURES IN PLACE. WILL CONTINUE TO MONITOR CLOSELY.
[2021-10-06 08:06] LABS: EOSINOPHILS % (MANUAL) 2 % (0-4); LYMPHOCYTES % (MANUAL) 53 % (20-46); MONOCYTES % (MANUAL) 9 % (5-12)
--- NOTE | 2021-10-06 08:10 | NUR ---
MD AT BEDSIDE. PT C/O SHOULDER PAIN. PLAN FOR XR OF SHOULDER.
[2021-10-06] MEDS: PANTOPRAZOLE 40 MG TABEC PO SCH (08:29)
[2021-10-06] MEDS: ASPIRIN 81 MG TAB.CHEW PO SCH (08:29)
[2021-10-06] MEDS: ATORVASTATIN 20 MG TAB PO SCH (08:29)
[2021-10-06] MEDS: SPIRONOLACTONE 25 MG TAB PO SCH (08:29)
[2021-10-06] MEDS: LOSARTAN 25 MG TAB PO SCH (08:30)
[2021-10-06] MEDS: carvediloL 6.25 MG TAB PO SCH ×2 (08:30→16:31)
[2021-10-06] MEDS: LORATADINE 10 MG TAB PO SCH (08:30)
--- NOTE | 2021-10-06 08:30 | NUR ---
MASH TUB COOKER AT BEDSIDE. ENDORSED TO MD PT IS NEGATIVE FOR ORTHOSTATIC HYPOTENSION.
[2021-10-06] MEDS: levETIRAcetam 500 MG TAB PO SCH ×2 (08:31→21:12)
[2021-10-06] MEDS: FUROSEMIDE 40 MG TAB PO SCH ×2 (08:31→16:30)
[2021-10-06] MEDS: ESCITALOPRAM 20 MG TAB PO SCH (08:31)
[2021-10-06 12:00] VITALS: BP 101/66
--- NOTE | 2021-10-06 12:30 | NUR ---
PT IN NO DISTRESS. RR EVEN & UNLABORED. NO SOB NOTED. VSS. LUNCH AT BEDSIDE. OBSERVED WITH GOOD APPETITE. NEEDS ALL MET. SAFETY MEASURES IN PLACE. HOURLY ROUNDS CONDUCTED.
--- NOTE | 2021-10-06 12:32 | NUR ---
PRN ATIVAN GIVEN WITH PRN TYLENOL. ATIVAN SCANNED, HOWEVER, NOT SAVED. 1 MG ATIVAN GIVEN TO PT @ 1232.
--- NOTE | 2021-10-06 14:07 | NUR ---
PHYSICAL THERAPY AT BEDSIDE. PT DENIES DIZZINESS. AMBULATED TO AND FROM BATHROOM WITH WALKER.
[2021-10-06 16:00] VITALS: BP 102/70
--- NOTE | 2021-10-06 18:29 | NUR ---
PT ASLEEP BUT AROUSABLE. RR EVEN & UNLABORED. IN NO DISTRESS. NO SOB NOTED. NEEDS ALL MET. PT STABLE.
--- NOTE | 2021-10-06 19:05 | NUR ---
REPORT GIVEN TO NIGHTSHIFT RN FOR CONTINUITY OF CARE.
--- NOTE | 2021-10-06 19:05 | NUR ---
RECEIVED ENDORSEMENT FROM AYLIN HUMPHREY FOR CONTINUITY OF CARE. PATIENT IS AWAKE AND STABLE. A&OX4. VERBALLY RESPONSIVE AND ABLE TO COMMUNICATE NEEDS. DENIES PAIN. ON ROOM AIR WITH NO APPARENT S/SX OF ACUTE DISTRESS. RESPIRATIONS EVEN AND UNLABORED WITH NO APPARENT S/SX OF ACUTE DISTRESS. IV SITE TO THE LAC 20G IS PATENT/INTACT/SL. UTILIZES WALKER FOR AMBULATION. SKIN IS INTACT. CONTINENT OF VOID AND BM. PLAN OF CARE AND WHITE COMMUNICATION BOARD UPDATED. ALL SAFETY MEASURES IN PLACE. BED IN LOW/LOCKED POSITION. CALL LIGHT WITHIN REACH. WILL CONTINUE TO MONITOR.
[2021-10-06 20:00] VITALS: BP 113/65
--- NOTE | 2021-10-06 21:05 | NUR ---
ADMINISTERED SCHEDULED PO MEDS PER MD ORDER. TOLERATED WELL. NO ADVERSE REACTION NOTED. DENIES PAIN. RESPIRATIONS EVEN AND UNLABORED WITH NO APPARENT S/SX OF ACUTE DISTRESS. SNACKS PROVIDED. WHITE BOARD COMMUNICATION UPDATED. ALL SAFETY MEASURES IN PLACE. CALL LIGHT WITHIN REACH. WILL CONTINUE TO MONITOR.
[2021-10-07] VITALS: BP 116/68
[2021-10-07] MEDS: HYDROcodone/APAP 5/325 MG 1 TAB TAB PO PRN ×2 (01:05→08:26)
--- NOTE | 2021-10-07 01:05 | NUR ---
ANSWERED CALL LIGHT. PATIENT C/O GEN PAIN 11/17. WILL MEDICATE PER PRN. RESPIRATIONS EVEN AND UNLABORED WITH NO APPARENT S/SX OF ACUTE DISTRESS. WHITE COMMUNICATION BOARD UPDATED. ALL SAFETY MEASURES IN PLACE. CALL LIGHT WITHIN REACH. WILL CONTINUE TO MONITOR.
[2021-10-07] MEDS: LORazepam 2 MG/ML VIAL IM/IVP PRN ×4 (01:19→13:29)
--- NOTE | 2021-10-07 03:05 | NUR ---
CHECKED PATIENT. PATIENT IS STABLE AND ASLEEP. CHEST IS RISING AND FALLING EVENLY. RESPIRATIONS EVEN AND UNLABORED WITH NO APPARENT S/SX OF ACUTE DISTRESS. WHITE COMMUNICATION BOARD UPDATED. ALL SAFETY MEASURES IN PLACE. CALL LIGHT WITHIN REACH. WILL CONTINUE TO MONITOR.
[2021-10-07 04:00] VITALS: BP 110/60
--- NOTE | 2021-10-07 05:05 | NUR ---
ANSWERED CALL LIGHT. PROVIDED PATIENT WITH SANDWICH AND DRINKS PER REQUEST. DENIES PAIN. RESPIRATIONS EVEN AND UNLABORED WITH NO APPARENT S/SX OF ACUTE DISTRESS. ALL NEEDS MET. WHITE COMMUNICATION BOARD UPDATED. ALL SAFETY MEASURES IN PLACE. CALL LIGHT WITHIN REACH. WILL CONTINUE TO MONITOR.
--- NOTE | 2021-10-07 05:36 | NUR ---
FULLY AWAKE , AAOX4 , SHE SAID SHE IS ANXIOUS - WILL MEDICATE .
[2021-10-07 06:47] LABS: BASOPHILS % (AUTO) 0.8 % (0.0-2.0); EOSINOPHILS # (AUTO) 0.1 K/uL (0-0.4); EOSINOPHILS % (AUTO) 3.1 % (0.0-4.0); HEMATOCRIT 35.2 % (36-48); HEMOGLOBIN 11.5 g/dL (12.0-16.0); LYMPHOCYTES # (AUTO) 2.3 K/uL (2.5-16.5); LYMPHOCYTES % (AUTO) 51.4 % (20.5-51.1); MEAN CORPUSCULAR HEMOGLOBIN 28 pg (27-31); MEAN CORPUSCULAR HGB CONC 33 g/dL (33-37); MEAN CORPUSCULAR VOLUME 86.3 fL (80-94); MONOCYTES # (AUTO) 0.6 K/uL (0.8-1.0); MONOCYTES % (AUTO) 13.5 % (1.7-9.3); NEUTROPHILS # (AUTO) 1.4 K/uL (1.8-7.7); NEUTROPHILS % (AUTO) 31.2 % (42.2-75.2); PLATELET COUNT (AUTO) 175 K/uL (140-450); RED BLOOD CELL COUNT(AUTO) 4.08 MIL/uL (4.20-5.40); RED CELL DISTRIBUTION WIDTH 14.4 % (11.6-13.7); WHITE BLOOD COUNT (AUTO) 4.4 K/uL (4.8-10.8)
[2021-10-07 06:50] LABS: ANION GAP 10.2 (8-16); CARBON DIOXIDE 27.5 mmol/L (21-32); CREATININE 1.1 mg/dL (0.6-1.3); POTASSIUM 3.7 mmol/L (3.5-5.1)
--- NOTE | 2021-10-07 07:15 | NUR ---
ENDORSED PATIENT TO AYLIN FOWLER FOR CONTINUITY OF CARE. PATIENT IS STABLE.
--- NOTE | 2021-10-07 07:30 | NUR ---
RECEIVED REPORT FROM [facility]. AOX4, ABLE TO MAKE NEEDS KNOWN. NO SOB OR RESPIRATORY DISTRESS. ON RA. UPDATED ON PLAN OF CARE. PT VERBALIZED UNDERSTANDING. PT DENIES CHEST PAIN/HEADACHE. NEEDS ALL MET AT THIS TIME. SAFETY MEASURES IN PLACE. WILL CONTINUE TO MONITOR CLOSELY.
[2021-10-07 07:42] LABS: MAGNESIUM 2.1 mg/dL (1.8-2.4); PHOSPHORUS 3.9 mg/dL (2.5-4.9)
[2021-10-07 08:00] VITALS: BP 110/68
[2021-10-07] MEDS: carvediloL 6.25 MG TAB PO SCH (08:25)
[2021-10-07] MEDS: PANTOPRAZOLE 40 MG TABEC PO SCH (08:26)
[2021-10-07] MEDS: ASPIRIN 81 MG TAB.CHEW PO SCH (08:26)
[2021-10-07] MEDS: levETIRAcetam 500 MG TAB PO SCH (08:26)
[2021-10-07] MEDS: LORATADINE 10 MG TAB PO SCH (08:26)
[2021-10-07] MEDS: SPIRONOLACTONE 25 MG TAB PO SCH (08:26)
[2021-10-07] MEDS: FUROSEMIDE 40 MG TAB PO SCH (08:26)
[2021-10-07] MEDS: LOSARTAN 25 MG TAB PO SCH (08:26)
[2021-10-07] MEDS: ATORVASTATIN 20 MG TAB PO SCH (08:26)
[2021-10-07] MEDS: ESCITALOPRAM 20 MG TAB PO SCH (08:26)
--- NOTE | 2021-10-07 08:40 | NUR ---
DUE MEDS GIVEN, TOLERATED WELL
[2021-10-07] MEDS ORDERED: TRAM50TA1 PO (09:20)
--- NOTE | 2021-10-07 09:30 | NUR ---
PT WITH C/O ANXIETY, ATIVAN 1MG GIVEN ORDERED
--- NOTE | 2021-10-07 09:47 | NUR ---
(10/07/21) RD INITIAL ASSESSMENT COMPLETED PLEASE REFER TO NUTRITION ASSESSMENT UNDER CARE ACTIVITY FOR ESTIMATED NUTRITIONAL NEEDS. RD RECOMMENDATIONS: 1. CONTINUE CARDIAC DIET TOLERATED 2. CONSULT RDN PRN. 3. RD WILL F/U 5-7 DAYS; LOW RISK. 4. RDN PROVIDED CARDIAC DIET EDUCATION TO PATIENT; PT ACCEPTED DIET EDUCATION. PERI CASANOVA, , RDN
[2021-10-07 12:00] VITALS: BP 111/76
--- NOTE | 2021-10-07 12:04 | NUR ---
DISCHARGE INSTRUCTIONS AND RX GIVEN. PT VERBALIZED UNDERSTANDING OF PLAN. PT WILL BE PICKED UP BY DAUGHTER
--- NOTE | 2021-10-07 13:29 | NUR ---
PT WITH C/O ANXIETY, ATIVAN 1MG GIVEN ORDERED
--- NOTE | 2021-10-07 13:40 | NUR ---
ASSISTED TO FRONT LOBBY, PICKED UP BY DAUGHTER. STABLE UPON DISCHARGE
== END 2021-10-07 13:53 | disposition home health service (06) | DRG 917 ==
LOC: MED 01:12 → MTU 04:10
DX: T40.711A Poisoning by cannabis, accidental (unintentional), initial encounter (principal); I21.4 Non-ST elevation (NSTEMI) myocardial infarction; I50.43 Acute on chronic combined systolic (congestive) and diastolic (congestive) heart failure; G92.9 Unspecified toxic encephalopathy; J96.21 Acute and chronic respiratory failure with hypoxia; I42.9 Cardiomyopathy, unspecified; Z20.822 Contact with and (suspected) exposure to COVID-19; I11.0 Hypertensive heart disease with heart failure; F41.1 Generalized anxiety disorder; E11.9 Type 2 diabetes mellitus without complications; K59.00 Constipation, unspecified; G47.00 Insomnia, unspecified; F17.200 Nicotine dependence, unspecified, uncomplicated; G40.909 Epilepsy, unspecified, not intractable, without status epilepticus; J30.9 Allergic rhinitis, unspecified; J44.9 Chronic obstructive pulmonary disease, unspecified; K21.9 Gastro-esophageal reflux disease without esophagitis; E83.42 Hypomagnesemia; E78.5 Hyperlipidemia, unspecified; F32.A Depression, unspecified; Z88.0 Allergy status to penicillin; Z88.8 Allergy status to other drugs, medicaments and biological substances; Z79.82 Long term (current) use of aspirin; Z79.899 Other long term (current) drug therapy; Z86.73 Personal history of transient ischemic attack (TIA), and cerebral infarction without residual deficits; Z82.3 Family history of stroke; Z82.49 Family history of ischemic heart disease and other diseases of the circulatory system; Z71.51 Drug abuse counseling and surveillance of drug abuser; Y92.89 Other specified places as the place of occurrence of the external cause
CPT/HCPCS: 36415; 71045; 73030; 80048; 80053; 80305; 81001; 82150; 83036; 83690; 83735; 83880; 84100; 84134; 84436; 84443; 84484; 85025; 85610; 85730; 87081; 87086; 93005; 96374; 96375; 97163-GP; 97530; 99285; J1940; J2060; J3475; Q0092

== ENCOUNTER 2021-12-20 08:04 | Inpatient (IN) | payer OTHER, MEDICAID ==
[~2021-12-20] VITALS: Ht 157.5 cm; Wt 81.2 kg
[~2021-12-20 08:04] MED LIST changes: +TRAM50TA1 PO
[2021-12-20 08:12] VITALS: BP 136/75
[2021-12-20] MEDS ORDERED: ALBUTEROL SULFATE/IPRATROPIU 3 ML SOL IH ONE (08:25)
[2021-12-20] MEDS ORDERED: ASPIRIN 81 MG TAB.CHEW PO ONE (08:45)
--- NOTE | 2021-12-20 09:42 | NUR ---
PT TAKEN TO ER BED 11
[2021-12-20] MEDS ORDERED: ASPIRIN 81 MG TAB.CHEW ONE (10:07)
--- NOTE | 2021-12-20 10:25 | NUR ---
PT C/O SOB, CHEST PAIN X2 DAYS. HX OF CHF FEELS SIMILAR. PT GCS 15. NSR ON MONITOR. NAD. SAFETY MAINTAINED.
[2021-12-20 10:36] LABS: ALBUMIN 3.3 g/dL (3.4-5.0); ANION GAP 11.1 (8-16); CARBON DIOXIDE 25.4 mmol/L (21-32); CREATININE 0.8 mg/dL (0.6-1.3); POTASSIUM 3.5 mmol/L (3.5-5.1); TOTAL BILIRUBIN 0.5 mg/dL (0.0-1.0)
[2021-12-20 10:46] LABS: BASOPHILS % (AUTO) 0.8 % (0.0-2.0); EOSINOPHILS # (AUTO) 0.1 K/uL (0-0.4); EOSINOPHILS % (AUTO) 1.7 % (0.0-4.0); HEMATOCRIT 36.3 % (36-48); HEMOGLOBIN 11.7 g/dL (12.0-16.0); LYMPHOCYTES # (AUTO) 1.8 K/uL (2.5-16.5); LYMPHOCYTES % (AUTO) 31.6 % (20.5-51.1); MEAN CORPUSCULAR HEMOGLOBIN 28 pg (27-31); MEAN CORPUSCULAR HGB CONC 32 g/dL (33-37); MEAN CORPUSCULAR VOLUME 87.8 fL (80-94); MONOCYTES # (AUTO) 0.7 K/uL (0.8-1.0); MONOCYTES % (AUTO) 12.7 % (1.7-9.3); NEUTROPHILS % (AUTO) 53.2 % (42.2-75.2); PLATELET COUNT (AUTO) 188 K/uL (140-450); RED BLOOD CELL COUNT(AUTO) 4.14 MIL/uL (4.20-5.40); RED CELL DISTRIBUTION WIDTH 16.7 % (11.6-13.7); WHITE BLOOD COUNT (AUTO) 5.6 K/uL (4.8-10.8)
[2021-12-20 10:50] LABS: PROTHROMBIN TIME 10.7 secs (10.8-13.4)
--- NOTE | 2021-12-20 10:59 | NUR ---
pt c/o body pain and anxiety, requesting medication dr childers made aware
[2021-12-20] MEDS ORDERED: KETOROLAC 30 MG/ML VIAL IVP ONE (11:00)
[2021-12-20] MEDS ORDERED: LORazepam 1 MG TAB PO ONE (11:00)
[2021-12-20] MEDS ORDERED: diphenhydrAMINE 50 MG/ML VIAL IVP ONE (11:00)
[2021-12-20] MEDS ORDERED: FUROSEMIDE 40 MG/4 ML VIAL IVP ONE (12:05)
[2021-12-20] MEDS ORDERED: NITROGLYCERIN 2% 1 GM PKT TP ONE (12:05)
[2021-12-20] MEDS ORDERED: ONDANSETRON 4 MG/2 ML VIAL IM/IVP PRN (13:15)
[2021-12-20] MEDS ORDERED: POTASSIUM CHLORIDE 10 MEQ TABER PO PRN (13:15)
[2021-12-20] MEDS ORDERED: ACETAMINOPHEN 325 MG TAB PO PRN (13:15)
[2021-12-20] MEDS ORDERED: DOCUSATE SODIUM 100 MG GELCAP PO PRN (13:15)
[2021-12-20] MEDS ORDERED: guaiFENesin DM 200/20 MG-10 ML 10 ML UDC PO PRN (13:15)
[2021-12-20] MEDS ORDERED: ZOLPIDEM 5 MG TAB PO PRN (13:15)
--- NOTE | 2021-12-20 14:30 | NUR ---
DISCHARGE PLANNING PATIENT IS A 61 YEAR OLD FEMALE ADMITTED IN THE [facility]/ED DUE TO PATIENT PRESENTED TO THE ED FOR ACUTE ONSET SHORTNESS OF BREATH AND CHEST PAIN. PATIENT HAS HX OF HEARTH FAILURE CARDIOMYOPATHY, HYPERTENSION, AND PREVIOUS SUBSTANCE ABUSE. SW MET WITH PATIENT AT BEDSIDE FOR THE PURPOSE GATHERING AND UPDATING HER COLLATERAL INFORMATION. PATIENT HAS SEVERAL PAST HOSPITALIZATIONS AT [facility] AND IT IS IMPORTANT TO DISCUSS ANY RECENT CHANGES, PATIENT REPORTED TO CONTINUE LIVING AT HOME WITH HER ,HER DAUGHTER AND TWO GRANDKIDS. PATIENT IDENTIFIES EMERGENCY CONTACT AND MEDICAL DECISION MAKER MER MUNROE () . PATIENT REPORTED NOT HAVING A.D IN PLACE AND DECLINED INF. FORMS PROVIDED BY GENOVEVA AT THIS TIME. PATIENT REPORTED HAVING A GOOD SUPPORT SYSTEM FROM HER FRIENDS AND FAMILY. PATIENT REPORTS MEETING WITH PCP DR. DUNHAM IN [place] ABOUT ONCE A MONTH AND REPORTED THAT HE HAS REFERRED HER TO A SOCIAL MEDIA COORDINATOR. PATIENT WAS UNABLE TO PATIENT REPORTED THAT SHE ATTENDED TO HER APPOINMENT AND SHE IS COMPLIANT WITH HER MEDICATIONS SHE IS ALSO HAVING ANOTHER UPCOMING APPT WITH HER SOCIAL MEDIA COORDINATOR NEXT MONTH. HOWEVER; WAS UNSURE WHAT DAY OR TIME OF APPT. SW INFORMED PATIENT THAT WILL FOLLOW UP WITH PCP TO IDENTIFY DR AND GATHER APPT INFORMATION FOR HER TO MAKE SURE SHE FOLLOW UP WITH HER UPCOMING APPOINTMENT. SW DISCUSSED WITH CLIENT ABOUT THE IMPORTANCE OF FOLLOW UP CARE WITH PCP WHEN SHE IS DC. PATIENT AGREED TO FOLLOW UP. PATIENT REPORTED GETTING ALL HER MEDICATIONS FROM [facility] [place]. PATIENT REPORTED BEING AMBULATORY WITH NO ASSISTANCE NEEDED. PATIENT REPORTED THAT DAUGHTER WILL ASSIST WITH CARE AND TRANSPORTATION ONCE PATIENT IS READY FOR DC. SW WILL FOLLOW UP NEEDED.
[2021-12-20 14:32] LABS: MAGNESIUM 1.9 mg/dL (1.8-2.4); PHOSPHORUS 2.9 mg/dL (2.5-4.9)
--- NOTE | 2021-12-20 15:00 | NUR ---
PT RESTING IN GURNEY BREATHING UNLABORED. 2L SATURATION 100%. PENDING TELE BED. NAD. SAFETY MAINTAINED.
--- NOTE | 2021-12-20 15:30 | NUR ---
Report and continuation of care received from AYLIN Hathaway.
--- NOTE | 2021-12-20 16:36 | NUR ---
Dr. Hilliard paged regarding Troponin redraw results: [id number]
--- NOTE | 2021-12-20 18:02 | NUR ---
Patient resting in position of comfort in high-fowlers. nurse monitoring in place. Pt requesting Ativan for anxiety. Bed locked in lowest position, side rails x 2. Seizure precautions remain in place.
--- NOTE | 2021-12-20 18:15 | NUR ---
C/o body aches 12/17. [place] PRN to be given.
[2021-12-20] MEDS: HYDROcodone/APAP 7.5/325 MG 1 TAB PO PRN (18:20)
--- NOTE | 2021-12-20 18:22 | NUR ---
Pt states unable to provide urine sample. Will notify when she is ready.
--- NOTE | 2021-12-20 19:26 | NUR ---
Report and transfer of care given to AYLIN Jackson
[2021-12-20] MEDS ORDERED: traZODone 50 MG TAB PO PRN (21:50)
[2021-12-20] MEDS ORDERED: traMADol 50 MG TAB PO PRN (21:50)
[2021-12-20] MEDS: FUROSEMIDE 40 MG/4 ML VIAL IVP SCH (22:41)
--- NOTE | 2021-12-20 23:00 | NUR ---
PT RESTING IN BED. ALL PTS NEEDS MEET AT THIS TIME
--- NOTE | 2021-12-21 00:45 | NUR ---
URINE COLLECTED AND WALKED TO LAB
--- NOTE | 2021-12-21 00:50 | NUR ---
URINE COLLECTED AND WALKED TO LAB
[2021-12-21 01:01] LABS: APPEARANCE,URINE CLEAR (CLEAR); BILIRUBIN,URINE NEGATIVE (NEGATIVE); BLOOD, URINE NEGATIVE (NEGATIVE); COLOR,URINE YELLOW (YELLOW); LEUKOCYTE ESTERASE ,URINE 1+ (NEGATIVE); NITRITE, URINE NEGATIVE (NEGATIVE); UGLUCOSE NEGATIVE (NEGATIVE)
[2021-12-21 01:08] LABS: RBC,URINE 0-5 /HPF (0-5)
[2021-12-21 01:15] LABS: BARBITURATE, URINE NEGATIVE ng/ml (NEG <=200)
[2021-12-21 01:16] LABS: BENZODIAZEPINE, URINE POSITIVE ng/mL (NEG <=200); CANNABINOID, URINE POSITIVE ng/mL (NEG <=50); COCAINE, URINE NEGATIVE ng/mL (NEG <=300); OPIATE, URINE POSITIVE ng/mL (NEG <=2000); PHENCYCLIDINE SCREEN,URINE NEGATIVE ng/mL (NEG <=25)
[2021-12-21] MEDS: HYDROcodone/APAP 7.5/325 MG 1 TAB PO PRN ×2 (01:25→06:23)
--- NOTE | 2021-12-21 05:30 | NUR ---
PT ASKED FOR A SNACK. GAVE PT CRACKERS AND JELLO. ALL PTS NEEDS MET AT THIS TIME.
--- NOTE | 2021-12-21 06:27 | NUR ---
PT GIVEN PAIN MEDICATION. ALL NEEDS MEET AT THIS TIME
--- NOTE | 2021-12-21 07:18 | NUR ---
Pt report given to AYLIN RICHMOND. Transfer of care at this time.
[2021-12-21 07:28] LABS: BASOPHILS % (AUTO) 0.8 % (0.0-2.0); EOSINOPHILS # (AUTO) 0.1 K/uL (0-0.4); EOSINOPHILS % (AUTO) 2.5 % (0.0-4.0); HEMATOCRIT 35.3 % (36-48); HEMOGLOBIN 11.4 g/dL (12.0-16.0); LYMPHOCYTES # (AUTO) 2.4 K/uL (2.5-16.5); LYMPHOCYTES % (AUTO) 49.1 % (20.5-51.1); MEAN CORPUSCULAR HEMOGLOBIN 29 pg (27-31); MEAN CORPUSCULAR HGB CONC 32 g/dL (33-37); MEAN CORPUSCULAR VOLUME 88.1 fL (80-94); MONOCYTES # (AUTO) 0.6 K/uL (0.8-1.0); NEUTROPHILS # (AUTO) 1.7 K/uL (1.8-7.7); NEUTROPHILS % (AUTO) 35.6 % (42.2-75.2); PLATELET COUNT (AUTO) 175 K/uL (140-450); RED CELL DISTRIBUTION WIDTH 16.5 % (11.6-13.7); WHITE BLOOD COUNT (AUTO) 4.8 K/uL (4.8-10.8)
[2021-12-21 07:45] LABS: ANION GAP 11.7 (8-16); CARBON DIOXIDE 27.2 mmol/L (21-32); CREATININE 0.9 mg/dL (0.6-1.3); POTASSIUM 3.9 mmol/L (3.5-5.1)
[2021-12-21] MEDS: carvediloL 6.25 MG TAB PO SCH ×2 (08:14→17:12)
--- NOTE | 2021-12-21 09:00 | NUR ---
PATIENT APPEARS TO BE RESTING WITH EYES CLOSED, ON BEDSIDE MARKET RESEARCH INTERVIEWER. WILL CONTINUE TO MONITOR.
[2021-12-21] MEDS: FUROSEMIDE 40 MG/4 ML VIAL IVP SCH ×3 (09:32→21:25)
[2021-12-21] MEDS: LOSARTAN 25 MG TAB PO SCH (09:35)
[2021-12-21] MEDS: levETIRAcetam 500 MG TAB PO SCH ×2 (09:35→21:20)
[2021-12-21] MEDS: DOCUSATE SODIUM 100 MG GELCAP PO SCH ×2 (09:36→21:20)
[2021-12-21] MEDS: ASPIRIN 81 MG TAB.CHEW PO SCH (09:36)
[2021-12-21] MEDS: SPIRONOLACTONE 25 MG TAB PO SCH (09:37)
[2021-12-21] MEDS: ESCITALOPRAM 20 MG TAB PO SCH (09:38)
[2021-12-21] MEDS: PANTOPRAZOLE 40 MG TABEC PO SCH (09:38)
[2021-12-21] MEDS ORDERED: CRUSHER, PILL MC ONE (09:41)
[2021-12-21] MEDS: ATORVASTATIN 20 MG TAB PO SCH (09:52)
--- NOTE | 2021-12-21 12:10 | NUR ---
Lunch tray given. pt. comfortable. Denies any discomfort at this time.
--- NOTE | 2021-12-21 13:15 | NUR ---
pt. complaining of generalized pain with pain scale of 8/10. PRN Tramadol offered.
--- NOTE | 2021-12-21 15:36 | NUR ---
pt. ambulated to BR. VS WNL. No complaints of pain or discomfort at this time.
--- NOTE | 2021-12-21 16:08 | NUR ---
PATIENT HAS BEEN SCREENED AND CATEGORIZED MODERATE NUTRITION RISK. PATIENT WILL BE SEEN WITHIN 3-5 DAYS OF ADMISSION. / [address]SH[address] RD
--- NOTE | 2021-12-21 17:30 | NUR ---
PT. IN BED, ASLEEP, RESTING COMFORTABLY. PT. ON MONITOR
--- NOTE | 2021-12-21 19:20 | NUR ---
Pt report given to AYLIN ALBERTO. Transfer of care at this time.
--- NOTE | 2021-12-21 19:24 | NUR ---
pt is awake and alert. all needs met at this time.
--- NOTE | 2021-12-21 19:46 | NUR ---
PT GIVEN MEAL TRAY.
--- NOTE | 2021-12-21 20:30 | NUR ---
HANDOFF RECIEVED FROM AYLIN ALBERTO. ASSUMED CARE. ALL NEEDS MET. WILL CONTINUE TO MONITOR.
--- NOTE | 2021-12-21 21:06 | NUR ---
PATIENT AMBULATED TO THE RR
--- NOTE | 2021-12-21 21:30 | NUR ---
PATIENT C/O NOT BEING ABLE TO SLEEP. PT RQ MEDICATION. TRAZADONE PRN ADMINISTERED
--- NOTE | 2021-12-21 22:59 | NUR ---
PATIENT CONSUMED 0% OF DINNER. PATIENT HAD FAMILY BRING FOOD.
--- NOTE | 2021-12-22 00:40 | NUR ---
Patient will be admitted to care of [facility]. Admited to [facility] [place]. Will go to room 105B. Belongings list completed. Report to AYLIN KOCH.
--- NOTE | 2021-12-22 00:45 | NUR ---
ADMITTED THIS 61 YEAR OLD FEMALE FROM ER PER ZECHARIAH WITH CC OF CHEST PAIN, AMBULATED TO BED WITH STEADY GAIT, AAOX4, VITAL SIGNS STABLE, PUT ON O2 VIA NASAL CANNULA AT 2L, NO SOB NOTED, DENIES PAIN AT THIS, ORIENTED TO ROOM AND CALL LIGHT, SAFETY MEASURES IN PLACE, CALL LIGHT WITHIN REACH.
[2021-12-22 00:50] VITALS: BP 117/67
[2021-12-22 04:00] VITALS: BP 89/61
--- NOTE | 2021-12-22 04:00 | NUR ---
PT SLEEPING, EASILY AROUSABLE, VITAL SIGNS TAKEN, BP ON THE LOW SIDE, 89/61, HR-64, DENIES PAIN, NO SOB NOTED, WILL HOLD DUE LASIX IVP AT 0500, CONTINUE TO MONITOR CLOSELY.
[2021-12-22] MEDS: FUROSEMIDE 40 MG/4 ML VIAL IVP SCH ×2 (04:29→13:39)
--- NOTE | 2021-12-22 06:00 | NUR ---
PT SLEEPING, NO SIGNS OF DISTRESS, VISIBLE CHEST RISE AND FALL, MONITORED CLOSELY.
[2021-12-22 07:03] LABS: BASOPHILS % (AUTO) 0.5 % (0.0-2.0); EOSINOPHILS # (AUTO) 0.1 K/uL (0-0.4); EOSINOPHILS % (AUTO) 1.9 % (0.0-4.0); HEMATOCRIT 36.2 % (36-48); HEMOGLOBIN 11.6 g/dL (12.0-16.0); LYMPHOCYTES # (AUTO) 1.8 K/uL (2.5-16.5); LYMPHOCYTES % (AUTO) 31.8 % (20.5-51.1); MEAN CORPUSCULAR HEMOGLOBIN 28 pg (27-31); MEAN CORPUSCULAR HGB CONC 32 g/dL (33-37); MEAN CORPUSCULAR VOLUME 87.6 fL (80-94); MONOCYTES # (AUTO) 0.9 K/uL (0.8-1.0); MONOCYTES % (AUTO) 16.3 % (1.7-9.3); NEUTROPHILS # (AUTO) 2.8 K/uL (1.8-7.7); NEUTROPHILS % (AUTO) 49.5 % (42.2-75.2); PLATELET COUNT (AUTO) 194 K/uL (140-450); RED BLOOD CELL COUNT(AUTO) 4.14 MIL/uL (4.20-5.40); RED CELL DISTRIBUTION WIDTH 16.6 % (11.6-13.7); WHITE BLOOD COUNT (AUTO) 5.7 K/uL (4.8-10.8)
--- NOTE | 2021-12-22 07:20 | NUR ---
RECEIVED REPORT FROM ARMORER TECHNICIAN FOR CONTINUE CARE. PT IS RESTING ON BED, ON 2L OXYGEN VIA NC, RESPIRATION EVEN, UNLABORED, NO DISTRESS NOTED AT THIS TIME. IV ON RIGHT HAND 20G, INTACT AND PATENT, ALL SAFETY MEASURE IN PLACE, CALL LIGHT WITHIN REACH, WILL CONTINUE TO MONITOR.
--- NOTE | 2021-12-22 07:28 | NUR ---
PT SLEEPING, NO SIGNS OF DISTRESS, REPORT GIVEN TO AYLIN ONTIVEROS FOR CONTINUITY OF CARE.
[2021-12-22 07:36] LABS: ANION GAP 9.9 (8-16); CARBON DIOXIDE 30.6 mmol/L (21-32); CREATININE 1.3 mg/dL (0.6-1.3); POTASSIUM 3.5 mmol/L (3.5-5.1)
[2021-12-22 08:00] VITALS: BP 92/53
[2021-12-22] MEDS: carvediloL 6.25 MG TAB PO SCH (08:00)
[2021-12-22] MEDS: SPIRONOLACTONE 25 MG TAB PO SCH (08:35)
[2021-12-22] MEDS: LOSARTAN 25 MG TAB PO SCH (08:36)
[2021-12-22] MEDS: ASPIRIN 81 MG TAB.CHEW PO SCH (08:49)
[2021-12-22] MEDS: PANTOPRAZOLE 40 MG TABEC PO SCH (08:49)
[2021-12-22] MEDS: ESCITALOPRAM 20 MG TAB PO SCH (08:49)
[2021-12-22] MEDS: ATORVASTATIN 20 MG TAB PO SCH (08:50)
[2021-12-22] MEDS: DOCUSATE SODIUM 100 MG GELCAP PO SCH (08:50)
[2021-12-22] MEDS: levETIRAcetam 500 MG TAB PO SCH (08:53)
[2021-12-22] MEDS ORDERED: CRUSHER, PILL MC ONE (08:55)
--- NOTE | 2021-12-22 10:31 | NUR ---
DC PLANNING: THE PATIENT PRESENTED WITH C/O SOB AND CHEST PAIN, H/O METH USE, CHF,HTN, CARDIOMYOPATHY, ASTHMA, CVA AND COPD. BNP 24OO, SERIAL TROPONINS 1436, 1746 AND 1144. ORDERS FOR CARDIOLOGY CONSULT, IV LASIX. PRIOR LVEF 20-25%, TOX SCREEN POSITIVE FOR OPIATES, METH, BENZODIAZEPINES AND CANNABINOIDS. THE PATIENT LIVES IN A GROUND FLOOR APARTMENT WITH HER SPOUSE, DAUGHTER AND 2 GRANDCHILDREN. NO DME, THE PATIENT SEES HER PMD REGULARLY WELL HER CARDIOLOGY NURSE PRACTITIONER. THE PATIENT IS INDEPENDENT IN ALL ACTIVITIES AND WILL RETURN HOME WITH FAMILY WHEN CLINICALLY STABLE. CM WILL FOLLOW.
--- NOTE | 2021-12-22 11:53 | NUR ---
CONTACTED DR MORE AKINS REGARDING PT'S BP WAS 92/53 HR 69 THIS MORNING AT 0800 AND RECHECKED BP IS 99/73 HR 75, PT IS CONCERNED ABOUT IT AND ALSO ASK PRESCRIPTION FOR HIS BP MEDS AT TIME FOR DISCHARGE. WAITING MD TO RESPONSE BACK.
[2021-12-22 12:00] VITALS: BP 119/87
--- NOTE | 2021-12-22 12:03 | NUR ---
DR AGUERO RESPONSE BACK TO EDUCATE PT TO HOLD BP MEDICATION IF SBP<110 OR DBP<65, ALSO EDUCATE PT THAT HER BP LOW BECAUSE SHE HAS NOT BEEN MOVING MUCH. DR AGUERO ALSO ADVICE PT TO GO TO [facility] TO GEOTECHNICAL FIELD TECHNICIAN HER BP MEDICATION AFTER DISCHARGE. EDUCATE ABOVE TO PT.
[2021-12-22 12:48] VITALS: BP 115/85
--- NOTE | 2021-12-22 13:00 | NUR ---
SPEAK WITH PT'S DAUGHTER JOE REGARDING DISCHARGE. EDUCATED PT AND PT'S DAUGHTER TO CHECK BLOOD PRESSURE BEFORE GIVEN BP MEDICATION AND HOLD IF SBP<110 OR DBP<65, BOTH VERBALIZED UNDERSTAND
--- NOTE | 2021-12-22 13:10 | NUR ---
BP RECHECKED AT THIS TIME 115/85 HR 77
--- NOTE | 2021-12-22 14:12 | NUR ---
PT C/O HEADACHE, ADMIN TYLENOL 650MG PO.
--- NOTE | 2021-12-22 15:25 | NUR ---
PT DISCHARGED, RESPIRATION EVEN, UNLABORED, NO DISTRESS. DISCHARGE AND MEDICATION INSTRUCTION GIVEN AND EXPLAINED TO PT, PT VERBALIZED UNDERSTAND. ALL PERSONAL BELONGING RETURNED.
== END 2021-12-22 15:27 | disposition home or self-care (01) | DRG 280 ==
LOC: MED 08:04 → MTU 13:56
PROVIDERS: ADMIT Student in an Organized Health Care Education/Training Program; ATTEND Student in an Organized Health Care Education/Training Program
DX: I11.0 Hypertensive heart disease with heart failure (principal); G92.9 Unspecified toxic encephalopathy; I21.4 Non-ST elevation (NSTEMI) myocardial infarction; I50.43 Acute on chronic combined systolic (congestive) and diastolic (congestive) heart failure; J96.21 Acute and chronic respiratory failure with hypoxia; I42.7 Cardiomyopathy due to drug and external agent; T43.621A Poisoning by amphetamines, accidental (unintentional), initial encounter; F15.90 Other stimulant use, unspecified, uncomplicated; E78.5 Hyperlipidemia, unspecified; K21.9 Gastro-esophageal reflux disease without esophagitis; G47.00 Insomnia, unspecified; G40.909 Epilepsy, unspecified, not intractable, without status epilepticus; K59.00 Constipation, unspecified; F32.A Depression, unspecified; J30.9 Allergic rhinitis, unspecified; F41.1 Generalized anxiety disorder; Z20.822 Contact with and (suspected) exposure to COVID-19; Z88.0 Allergy status to penicillin; Z88.8 Allergy status to other drugs, medicaments and biological substances; Z79.899 Other long term (current) drug therapy; Z79.82 Long term (current) use of aspirin; Y92.89 Other specified places as the place of occurrence of the external cause
CPT/HCPCS: 36415; 71045; 80048; 80053; 80305; 81001; 82150; 83690; 83735; 83880; 84100; 84484; 85025; 85610; 85730; 87081; 87086; 93005; 94640; 96374; 96375; 99291; J1200; J1644; J1885; J1940

== ENCOUNTER 2022-02-04 07:46 | Emergency (ER) | payer OTHER, MEDICAID ==
[~2022-02-04] VITALS: Ht 157.5 cm; Wt 69.9 kg
[2022-02-04 07:50] VITALS: BP 156/108
--- NOTE | 2022-02-04 08:36 | NUR ---
X-Ray at bedside.
[2022-02-04 08:39] LABS: BASOPHILS # (AUTO) 0.1 K/uL (0.00-0.22); EOSINOPHILS # (AUTO) 0.1 K/uL (0-0.4); EOSINOPHILS % (AUTO) 2.2 % (0.0-4.0); HEMATOCRIT 34.3 % (36-48); HEMOGLOBIN 11.2 g/dL (12.0-16.0); LYMPHOCYTES # (AUTO) 1.3 K/uL (2.5-16.5); LYMPHOCYTES % (AUTO) 23.2 % (20.5-51.1); MEAN CORPUSCULAR HEMOGLOBIN 29 pg (27-31); MEAN CORPUSCULAR HGB CONC 33 g/dL (33-37); MEAN CORPUSCULAR VOLUME 87.6 fL (80-94); MONOCYTES # (AUTO) 0.7 K/uL (0.8-1.0); MONOCYTES % (AUTO) 12.9 % (1.7-9.3); NEUTROPHILS # (AUTO) 3.4 K/uL (1.8-7.7); NEUTROPHILS % (AUTO) 60.7 % (42.2-75.2); PLATELET COUNT (AUTO) 251 K/uL (140-450); RED BLOOD CELL COUNT(AUTO) 3.91 MIL/uL (4.20-5.40); RED CELL DISTRIBUTION WIDTH 15.3 % (11.6-13.7); WHITE BLOOD COUNT (AUTO) 5.6 K/uL (4.8-10.8)
[2022-02-04 09:01] LABS: ALBUMIN 2.9 g/dL (3.4-5.0); ANION GAP 12.2 (8-16); CREATININE 0.9 mg/dL (0.6-1.3); POTASSIUM 3.2 mmol/L (3.5-5.1); TOTAL BILIRUBIN 0.6 mg/dL (0.0-1.0)
--- NOTE | 2022-02-04 09:19 | NUR ---
61 Y/O FEMALE BIBA FROM HOME C/O LEFT SIDED CHEST PAIN AND ANXIETY X2DAYS. PER PT SHE HAS HAD A "HARD TIME WITH HER FAMILY". ALLERGY: LISINOPRIL, PCN PMH: HTN, HX STROKE, CHF
[2022-02-04] MEDS ORDERED: ASPIRIN 81 MG TAB.CHEW PO ONE (09:20)
--- NOTE | 2022-02-04 10:50 | NUR ---
PT SCREAMING, REQUESTING SOMETHING FOR ANXIETY. DR PUENTES MADE AWARE
[2022-02-04] MEDS ORDERED: LORazepam 2 MG/ML VIAL IVP ONE (10:55)
[2022-02-04] MEDS ORDERED: LORazepam 1 MG TAB PO ONE (11:00)
[2022-02-04] MEDS ORDERED: FUROSEMIDE 40 MG TAB PO ONE (11:20)
[2022-02-04] MEDS ORDERED: ATI.5 PO (13:23)
[2022-02-04] MEDS ORDERED: HYDR25CA1 PO (13:23)
[2022-02-04] MEDS ORDERED: FUROSEMIDE 40 MG TAB ONE (13:25)
[2022-02-04 14:05] VITALS: BP 115/76
--- NOTE | 2022-02-04 14:05 | NUR ---
Patient discharged with v/s stable. Written and verbal after care instructions given and explained. Patient alert, oriented and verbalized understanding of instructions. Ambulatory with steady gait. All questions addressed prior to discharge. ID band removed. Patient advised to follow up with PMD. Rx of VISTARIL, ATIVAN given. Patient educated on indication of medication including possible reaction and side effects. Opportunity to ask questions provided and answered.
== END 2022-02-04 14:05 | disposition home or self-care (01) ==
LOC: MED 07:46
DX: F41.9 Anxiety disorder, unspecified (principal); I11.0 Hypertensive heart disease with heart failure; R50.9 Fever, unspecified; K21.9 Gastro-esophageal reflux disease without esophagitis; J44.9 Chronic obstructive pulmonary disease, unspecified; E11.9 Type 2 diabetes mellitus without complications; F15.90 Other stimulant use, unspecified, uncomplicated; Z86.73 Personal history of transient ischemic attack (TIA), and cerebral infarction without residual deficits; Z79.899 Other long term (current) drug therapy; Z79.82 Long term (current) use of aspirin; Z88.0 Allergy status to penicillin; Z88.8 Allergy status to other drugs, medicaments and biological substances
CPT/HCPCS: 36415; 71045; 80053; 83880; 84484; 85025; 93005; 99285

== ENCOUNTER 2022-02-27 05:40 | Inpatient (IN) | payer MEDICAID, OTHER ==
[~2022-02-27] VITALS: Ht 157.5 cm; Wt 52.6 kg
[~2022-02-27 05:40] MED LIST changes: -DOCU-299 PO; -HYDR-5080 PO; -LORA10TA19 PO; -MSCON15 PO; -ONDA4TAB PO; -TRAM50TA1 PO
[2022-02-27] MEDS ORDERED: ALBUTEROL 0.083% 2.5 MG/3 ML NEBU INH ONE ×2 (07:00→07:34)
[2022-02-27] MEDS ORDERED: predniSONE 20 MG TAB PO ONE (07:00)
[2022-02-27] MEDS ORDERED: IPRATROPIUM 0.02% 0.5 MG/2.5 ML NEBU INH ONE ×2 (07:00→07:34)
[2022-02-27] MEDS ORDERED: KETOROLAC 30 MG/ML VIAL IM ONE (07:00)
[2022-02-27] MEDS ORDERED: predniSONE 20 MG TAB ONE (08:40)
[2022-02-27] MEDS ORDERED: KETOROLAC 30 MG/ML VIAL ONE (08:40)
[2022-02-27 10:17] LABS: BASOPHILS % (AUTO) 0.8 % (0.0-2.0); EOSINOPHILS # (AUTO) 0.1 K/uL (0-0.4); EOSINOPHILS % (AUTO) 2.1 % (0.0-4.0); HEMATOCRIT 38.6 % (36-48); HEMOGLOBIN 12.2 g/dL (12.0-16.0); LYMPHOCYTES # (AUTO) 1.9 K/uL (2.5-16.5); LYMPHOCYTES % (AUTO) 37.2 % (20.5-51.1); MEAN CORPUSCULAR HEMOGLOBIN 28 pg (27-31); MEAN CORPUSCULAR HGB CONC 32 g/dL (33-37); MEAN CORPUSCULAR VOLUME 89.6 fL (80-94); MONOCYTES # (AUTO) 0.6 K/uL (0.8-1.0); MONOCYTES % (AUTO) 11.8 % (1.7-9.3); NEUTROPHILS # (AUTO) 2.5 K/uL (1.8-7.7); NEUTROPHILS % (AUTO) 48.1 % (42.2-75.2); PLATELET COUNT (AUTO) 194 K/uL (140-450); RED BLOOD CELL COUNT(AUTO) 4.31 MIL/uL (4.20-5.40); RED CELL DISTRIBUTION WIDTH 14.8 % (11.6-13.7); WHITE BLOOD COUNT (AUTO) 5.2 K/uL (4.8-10.8)
[2022-02-27 10:33] LABS: ANION GAP 15.5 (8-16); ASPARTATE AMINOTRANSFERASE 19 U/L (15-37); CARBON DIOXIDE 24.1 mmol/L (21-32); CHLORIDE 108 mmol/L (98-107); CREATININE 0.8 mg/dL (0.6-1.3); GFR ARICAN-AMERICAN 94 mL/min (>90); GLUCOSE 103 mg/dL (74-106); POTASSIUM 3.6 mmol/L (3.5-5.1); SODIUM SERUM 144 mmol/L (136-145); TOTAL BILIRUBIN 0.3 mg/dL (0.0-1.0); UREA NITROGEN, BLOOD 14 mg/dL (7-18)
[2022-02-27] MEDS ORDERED: FUROSEMIDE 40 MG/4 ML VIAL IVP SCH (10:35)
[2022-02-27] MEDS ORDERED: LORazepam 2 MG/ML VIAL IVP ONE (10:35)
[2022-02-27] MEDS ORDERED: ASPIRIN 81 MG TAB.CHEW PO ONE (10:35)
[2022-02-27] MEDS ORDERED: POTASSIUM CHLORIDE 10 MEQ TABER PO PRN (10:50)
[2022-02-27] MEDS ORDERED: guaiFENesin DM 200/20 MG-10 ML 10 ML UDC PO PRN (10:50)
[2022-02-27] MEDS ORDERED: DOCUSATE SODIUM 100 MG GELCAP PO PRN (10:50)
[2022-02-27] MEDS ORDERED: ZOLPIDEM 5 MG TAB PO PRN (10:50)
[2022-02-27] MEDS ORDERED: ACETAMINOPHEN 325 MG TAB PO PRN (10:50)
[2022-02-27] MEDS ORDERED: ONDANSETRON 4 MG/2 ML VIAL IM/IVP PRN (10:50)
[2022-02-27] MEDS ORDERED: HYDROcodone/APAP 7.5/325 MG 1 TAB PO PRN (10:50)
[2022-02-27] MEDS: SPIRONOLACTONE 25 MG TAB PO SCH (10:55)
[2022-02-27] MEDS: LOSARTAN 25 MG TAB PO SCH (10:55)
[2022-02-27] MEDS ORDERED: NITROGLYCERIN 0.4 MG TAB SL PRN (10:55)
[2022-02-27 11:10] VITALS: BP 147/103
--- NOTE | 2022-02-27 11:29 | NUR ---
Pt unable to provide urine at this time.
[2022-02-27 11:48] LABS: PROTHROMBIN TIME 10.5 secs (10.8-13.4)
[2022-02-27 12:11] LABS: CHOL/HDL RATIO 1.4 (1-4.5); FREE T4 (FREE THYROXINE) 1.04 ng/dL (0.76-1.46); MAGNESIUM 1.6 mg/dL (1.8-2.4); PHOSPHORUS 3.4 mg/dL (2.5-4.9); THYROID STIMULATING HORMONE 0.39 uIU/mL (0.34-3.74)
[2022-02-27] MEDS: NACL 0.9% 1,000 ML IV SCH (13:00)
[2022-02-27] MEDS ORDERED: FUROSEMIDE 40 MG TAB PO SCH (13:00)
[2022-02-27] MEDS: ALBUTEROL SULFATE/IPRATROPIU 3 ML SOL IH SCH ×2 (13:00→19:00)
[2022-02-27] MEDS ORDERED: ALBUTEROL SULFATE/IPRATROPIU 3 ML SOL IH PRN (13:00)
[2022-02-27] MEDS: carvediloL 6.25 MG TAB PO SCH (16:28)
[2022-02-27] MEDS: LORazepam 1 MG TAB PO PRN (16:35)
--- NOTE | 2022-02-27 17:29 | NUR ---
Dr Garcia notified of critical trop [phone]
[2022-02-27 17:36] LABS: BILIRUBIN,URINE NEGATIVE (NEGATIVE); BLOOD, URINE 1+ (NEGATIVE); COLOR,URINE YELLOW (YELLOW); LEUKOCYTE ESTERASE ,URINE NEGATIVE (NEGATIVE); NITRITE, URINE NEGATIVE (NEGATIVE); UGLUCOSE 2+ (NEGATIVE)
[2022-02-27 17:55] LABS: APPEARANCE,URINE CLEAR (CLEAR)
[2022-02-27 18:13] LABS: BARBITURATE, URINE NEGATIVE ng/ml (NEG <=200); BENZODIAZEPINE, URINE POSITIVE ng/mL (NEG <=200)
[2022-02-27 18:14] LABS: CANNABINOID, URINE POSITIVE ng/mL (NEG <=50); COCAINE, URINE NEGATIVE ng/mL (NEG <=300); OPIATE, URINE NEGATIVE ng/mL (NEG <=2000); PHENCYCLIDINE SCREEN,URINE NEGATIVE ng/mL (NEG <=25)
[2022-02-27 18:17] LABS: WBC,URINE NONE SEEN /HPF (0-5)
[2022-02-27 20:00] VITALS: BP 121/78
--- NOTE | 2022-02-27 20:00 | NUR ---
ADMISSION OF A 61 YEAR OLD FEMALE PATIENT UNDER THE CARE OF DOCTOR AGUERO WITH SYMPTOMS OF TROPONIN ELEVATION D/T NSTEMI, CHF, COPD. ISAIAH MOSES RN
[2022-02-27] MEDS: levETIRAcetam 500 MG TAB PO SCH (21:57)
[2022-02-27] MEDS: FUROSEMIDE 40 MG/4 ML VIAL IVP SCH (21:59)
[2022-02-28] VITALS: BP 135/87
[2022-02-28 04:00] VITALS: BP 109/77
[2022-02-28] MEDS: FUROSEMIDE 40 MG/4 ML VIAL IVP SCH ×3 (05:00→20:54)
[2022-02-28] MEDS: LORazepam 1 MG TAB PO PRN ×3 (05:55→09:08)
--- NOTE | 2022-02-28 06:02 | NUR ---
PATIENT REFUSES PO ATIVAN. SAYS SHE HAS BEEN FEELING LIKE A PANIC ATTACK AND ONLY WANTS IV. ISAIAH MOSES RN
--- NOTE | 2022-02-28 07:30 | NUR ---
RECEIVED PT FROM NIGHTSHIFT NURSEISAIAH. PT A/O X3. ABLE TO MAKE NEEDS KNOWN. NO SOB OR RESPIRATORY DISTRESS. ON RA. DENIES PAIN. IV TO SL. PT RESTING COMFORTABLY. NEEDS ALL MET. ALL SAFETY MEASURES IN PLACE.
[2022-02-28 07:44] LABS: ANION GAP 12.5 (8-16); CARBON DIOXIDE 27.7 mmol/L (21-32); POTASSIUM 3.2 mmol/L (3.5-5.1)
[2022-02-28 07:45] LABS: BASOPHILS % (AUTO) 0.7 % (0.0-2.0); EOSINOPHILS # (AUTO) 0.1 K/uL (0-0.4); EOSINOPHILS % (AUTO) 0.8 % (0.0-4.0); HEMATOCRIT 37.7 % (36-48); HEMOGLOBIN 12.1 g/dL (12.0-16.0); LYMPHOCYTES # (AUTO) 2.4 K/uL (2.5-16.5); LYMPHOCYTES % (AUTO) 33.2 % (20.5-51.1); MEAN CORPUSCULAR HEMOGLOBIN 28 pg (27-31); MEAN CORPUSCULAR HGB CONC 32 g/dL (33-37); MEAN CORPUSCULAR VOLUME 88.1 fL (80-94); MONOCYTES # (AUTO) 1.1 K/uL (0.8-1.0); MONOCYTES % (AUTO) 14.9 % (1.7-9.3); NEUTROPHILS # (AUTO) 3.7 K/uL (1.8-7.7); NEUTROPHILS % (AUTO) 50.4 % (42.2-75.2); PLATELET COUNT (AUTO) 208 K/uL (140-450); RED BLOOD CELL COUNT(AUTO) 4.28 MIL/uL (4.20-5.40); RED CELL DISTRIBUTION WIDTH 14.8 % (11.6-13.7); WHITE BLOOD COUNT (AUTO) 7.3 K/uL (4.8-10.8)
--- NOTE | 2022-02-28 07:48 | NUR ---
PT STATED SHE FELT ANXIOUS AND WANTED SOMETHING FOR HER ANXIETY. I LET PT KNOW I WOULD TELL HER RN. RN MADE AWARE AND WILL SEE PT SOON SHE IS AVAIL.
[2022-02-28 08:00] VITALS: BP 109/76
[2022-02-28] MEDS: carvediloL 6.25 MG TAB PO SCH ×2 (08:00→16:34)
--- NOTE | 2022-02-28 08:00 | NUR ---
RT STATES PT IS ANXIOUS AND ASKING FOR MEDICATION FOR ANXIETY. PT COMPLETED BREATHING TREATMENT. ARRIVED TO PT'S ROOM. OBSERVED PT SLEEPING. RR EVEN & UNLABORED. IN NO DISTRESS. ALL SAFETY MEASURES IN PLACE.
[2022-02-28 08:08] LABS: T4 (THYROXINE) 6.6 ug/dL (4.5-12.0)
[2022-02-28] MEDS: ALBUTEROL SULFATE/IPRATROPIU 3 ML SOL IH SCH ×3 (08:19→19:48)
[2022-02-28] MEDS: LOSARTAN 25 MG TAB PO SCH (09:00)
[2022-02-28] MEDS: ESCITALOPRAM 20 MG TAB PO SCH (09:06)
[2022-02-28] MEDS: SPIRONOLACTONE 25 MG TAB PO SCH (09:06)
[2022-02-28] MEDS: PANTOPRAZOLE 40 MG TABEC PO SCH (09:07)
[2022-02-28] MEDS: ASPIRIN 81 MG TAB.CHEW PO SCH (09:07)
[2022-02-28] MEDS: ATORVASTATIN 20 MG TAB PO SCH (09:07)
[2022-02-28] MEDS: levETIRAcetam 500 MG TAB PO SCH ×2 (09:09→20:54)
--- NOTE | 2022-02-28 09:20 | NUR ---
PATIENT HAS BEEN SCREENED AND CATEGORIZED MODERATE NUTRITION RISK. PATIENT WILL BE SEEN WITHIN 3-5 DAYS OF ADMISSION. 02/28/22-03/04/[address]SHAD BUTLER RD
[2022-02-28] MEDS: NACL 0.9% 1,000 ML IV SCH (10:42)
[2022-02-28 12:00] VITALS: BP 108/72
--- NOTE | 2022-02-28 12:50 | NUR ---
RT NOTES PT WAS SLEEP AND WHEN I TRIED TO WAKE HER TO SEE IF SHE WANTED THE BREATHING TX SHE REFUSED. NO DISTRESS WAS NOTED AND PT WAS NOT IN ANY DISTRESS. WILL CONTINUE TO MONITOR.
--- NOTE | 2022-02-28 14:30 | NUR ---
PT AWAKE FROM SLEEP. ASKING FOR "BRUCE" SODA. PROVIDED PT WITH DIET BRUCE SODA. LEADS APPLIED BACK ON PT. WHEN ASKED PT HOW HER SLEEP WAS, PT STATES, "GOOD". ALL NEEDS MET. ALL SAFETY MEASURES IN PLACE.
[2022-02-28 16:00] VITALS: BP 122/86
[2022-02-28] MEDS: LORazepam 2 MG/ML VIAL IVP PRN (16:35)
--- NOTE | 2022-02-28 19:06 | NUR ---
REPORT GIVEN TO NIGHTSHIFT NURSE FOR CONTINUITY OF CARE. PT STABLE.
--- NOTE | 2022-02-28 19:30 | NUR ---
RECEIVED REPORT FROM DAY SHIFT NURSE MILAGRO FOR CONTINUITY OF CARE. PATIENT IS A&O X4. PATIENT IS ON ROOM AIR, BREATHING IS NORMAL WITH SYMMETRICAL RISE AND FALL OF CHEST. IV IS A 22G ON RFA, RUNNING NS AT 30. PATIENT IS CURRENTLY SLEEPING IN HIGH FOWLERS POSITION. BED IS IN LOWEST POSITION, WHEELS LOCKED, CALL LIGHT IN PLACE. WILL CONTINUE TO OBSERVE PATIENT.
--- NOTE | 2022-02-28 19:46 | NUR ---
PT PRESENTS IN LAYING IN BED, HOB ELEVATED, NO SIGNS OF RESPIRATORY DISTRESS NOTED CURRENT SPO2 97% ON ROOM AIR. PT IS NOT ANSWERING QUESTIONS BUT IS AWAKE AND ALERT. ADMINISTERED HHN TX VIA SVN WITH MASK WITH NO ADVERS EFFECTS. WILL CONTINUE TO MONITOR.
[2022-02-28 20:00] VITALS: BP 106/75
--- NOTE | 2022-02-28 20:10 | NUR ---
PATIENT CALLED AND REQUESTED A SODA AND TURKEY SANDWICH. WOKE PATIENT UP WHEN I ENTERED THE ROOM AND GAVE PATIENT A TURKEY SANDWICH AND SODA. PATIENT THANKED ME AND BEGAN EATING SANDWICH. WILL CONTINUE TO OBSERVE PATIENT.
--- NOTE | 2022-02-28 20:30 | NUR ---
PATIENT CALLED. PATIENT DID NOT LIKE TURKEY SANDWICH AND ASKED FOR AN EGG SALAD SANDWICH. INFORMED PATIENT THAT WE DIDN'T HAVE THAT AVAILABLE. PATIENT ASKED FOR PUDDING (BOTH VANILLA AND CHOCOLATE). GAVE PATIENT PUDDING. WILL CONTINUE TO OBSERVE PATIENT.
--- NOTE | 2022-02-28 21:00 | NUR ---
ADMINISTERED 2100 MEDICATION. PATIENT TOLERATED WELL. PATIENT WAS ASLEEP UPON ENTERING THE ROOM. WOKE PATIENT UP AND EXPLAINED MEDICATION THAT WAS BEING ADMINISTERED. PATIENT AGREED TO MEDICATION, AND WENT BACK TO SLEEP AFTER MEDICATION WAS GIVEN. BREATHING WAS NORMAL WITH SYMMETRICAL RISE AND FALL OF CHEST. WILL CONTINUE TO OBSERVE PATIENT.
--- NOTE | 2022-02-28 22:45 | NUR ---
PATIENT CALLED. PATIENT HAD URINATED ON FLOOR TRYING TO GET TO THE BATHROOM. URINE WAS CLEANED UP OFF OF FLOOR AND MAINTENANCE WIPED FLOOR WITH SANITARY WIPE. PATIENT WAS GIVEN A NEW GOWN, NEW SOCKS, AND MARKETING EFFECTIVENESS MANAGER WAS RE-HOOKED UP TO PATIENT. AFTERWARDS PATIENT WENT BACK TO SLEEP. WILL CONTINUE TO OBSERVE PATIENT.
[2022-03-01] VITALS: BP 117/76
--- NOTE | 2022-03-01 01:00 | NUR ---
LOOKED IN ON PATIENT. PATIENT WAS SLEEPING. BREATHING WAS NORMAL WITH SYMMETRICAL RISE AND FALL OF CHEST. WILL CONTINUE TO OBSERVE PATIENT.
--- NOTE | 2022-03-01 02:45 | NUR ---
PATIENT CALLED AND COMPLAINED OF A 6/10 PAIN FOR BODY ACHES, BACK ACHES. GAVE NORCO TO PATIENT. PATIENT TOLERATED WELL. WILL CONTINUE TO OBSERVE PATIENT.
--- NOTE | 2022-03-01 03:45 | NUR ---
LOOKED IN ON PATIENT TO REASSESS PAIN. PATIENT WAS SLEEPING, MEDICATION WAS EFFECTIVE IN PROVIDING COMFORT TO PATIENT. BREATHING WAS NORMAL WITH SYMMETRICAL RISE AND FALL OF CHEST. WILL CONTINUE TO OBSERVE PATIENT.
[2022-03-01 04:00] VITALS: BP 115/76
[2022-03-01] MEDS: FUROSEMIDE 40 MG/4 ML VIAL IVP SCH ×2 (05:21→13:04)
[2022-03-01] MEDS: LORazepam 2 MG/ML VIAL IVP PRN (05:34)
--- NOTE | 2022-03-01 05:42 | NUR ---
ADMINISTERED 0500 IVP MEDICATION AT 0521. PATIENT TOLERATED WELL. PATIENT REQUESTED ATIVAN FOR ANXIETY. VITALS ARE WITHIN NORMAL LIMITS. ATIVAN IVP IS APPROPRIATE TO GIVE. ADMINISTERED ATIVAN TO PATIENT. MEDICATION SUCCESSFULLY ADMINISTERED. WILL CONTINUE TO OBSERVE PATIENT.
[2022-03-01] MEDS: ALBUTEROL SULFATE/IPRATROPIU 3 ML SOL IH SCH ×2 (06:53→13:05)
--- NOTE | 2022-03-01 07:20 | NUR ---
RECEIVED BEDSIDE REPORT FROM LINING LAYER NURSE, PATIENT IS SLEEPING AROUSABLE BY TOUCH AND NAME. RESPIRATION EVEN UNLABORED ON ROOM AIR. NO DISTRESS NOTED. SKIN IS WARM AND DRY. IV PATENT AND INTACT. PLAN OF CARE WAS DISCUSSED. ALL SAFETY MEASURES IN PLACE. BED IS AT LOW POSITION. CALL LIGHT WITHIN REACH. WILL CONTINUE TO MONITOR.
--- NOTE | 2022-03-01 07:30 | NUR ---
ENDORSED TO DAY SHIFT NURSE KISSES FOR CONTINUITY OF CARE. PATIENT IS STABLE.
[2022-03-01 07:34] LABS: BASOPHILS % (AUTO) 0.5 % (0.0-2.0); EOSINOPHILS # (AUTO) 0.2 K/uL (0-0.4); EOSINOPHILS % (AUTO) 3.5 % (0.0-4.0); HEMOGLOBIN 11.6 g/dL (12.0-16.0); LYMPHOCYTES # (AUTO) 2.8 K/uL (2.5-16.5); LYMPHOCYTES % (AUTO) 44.2 % (20.5-51.1); MEAN CORPUSCULAR HEMOGLOBIN 29 pg (27-31); MEAN CORPUSCULAR HGB CONC 32 g/dL (33-37); MEAN CORPUSCULAR VOLUME 88.3 fL (80-94); MONOCYTES # (AUTO) 0.8 K/uL (0.8-1.0); NEUTROPHILS # (AUTO) 2.5 K/uL (1.8-7.7); NEUTROPHILS % (AUTO) 39.8 % (42.2-75.2); PLATELET COUNT (AUTO) 190 K/uL (140-450); RED BLOOD CELL COUNT(AUTO) 4.08 MIL/uL (4.20-5.40); RED CELL DISTRIBUTION WIDTH 14.4 % (11.6-13.7); WHITE BLOOD COUNT (AUTO) 6.3 K/uL (4.8-10.8)
[2022-03-01 08:00] LABS: ANION GAP 11.7 (8-16); CARBON DIOXIDE 26.2 mmol/L (21-32); POTASSIUM 3.9 mmol/L (3.5-5.1)
[2022-03-01] MEDS: carvediloL 6.25 MG TAB PO SCH (08:51)
--- NOTE | 2022-03-01 08:51 | NUR ---
ALL SCHEDULED MEDS GIVEN PER ORDER. WILL CONTINUE TO MONITOR
[2022-03-01] MEDS: SPIRONOLACTONE 25 MG TAB PO SCH (08:52)
[2022-03-01] MEDS: ATORVASTATIN 20 MG TAB PO SCH (08:52)
[2022-03-01] MEDS: levETIRAcetam 500 MG TAB PO SCH (08:52)
[2022-03-01] MEDS: ESCITALOPRAM 20 MG TAB PO SCH (08:53)
[2022-03-01] MEDS: PANTOPRAZOLE 40 MG TABEC PO SCH (08:53)
[2022-03-01] MEDS: ASPIRIN 81 MG TAB.CHEW PO SCH (08:53)
[2022-03-01] MEDS: LOSARTAN 25 MG TAB PO SCH (08:54)
--- NOTE | 2022-03-01 10:36 | NUR ---
PER MD STOP IV FLUIDS.
[2022-03-01] MEDS ORDERED: MAGNESIUM OXIDE 400 MG TAB PO SCH (10:49)
[2022-03-01 12:00] VITALS: BP 97/75
--- NOTE | 2022-03-01 12:30 | NUR ---
PT IS AWARE OF BEING DISCHARGE TODAY
[2022-03-01 12:48] VITALS: BP 97/76
--- NOTE | 2022-03-01 13:20 | NUR ---
PATIENT COMPLAINED OF MILD PAIN /. TYLENOL GIVEN PER MD ORDER. WILL CONTINUE TO MONITOR
--- NOTE | 2022-03-01 13:56 | NUR ---
AWAITING FOR PATIENT RIDE TO BE MANAGER PRODUCT SUPPORT.
--- NOTE | 2022-03-01 14:00 | NUR ---
EDUCATED PATIENT IN REGARDS TO DISCHARGE PAPERWORK. AWAITING FOR PATIENT RIDE
--- NOTE | 2022-03-01 14:24 | NUR ---
DC PLANNING GENOVEVA MET WITH PATIENT AT BEDSIDE TO COMPLETE ASSESSMENT. PATIENT REPORTS RESIDING WITH HER AND DAUGHTER AT THE ADDRESS LISTED ON FILE. PT IDENTIFIES MER () [phone] EMERGENCY CONTACT AND MDM. PT IDENTIFIED KASSANDRA (DAUGHTER) EMERGENCY CONTACT WELL AND REPORTS THAT FAMILY SHARES THE SAME CELL PHONE. PATIENT DENIED AD IN PLACE AND DECLINED AD OFFERED BY GENOVEVA. PT INCONSISTENT WITH MEETING WITH PCP; LAST VISIT IS REPORTED "COUPLE MONTHS AGO". PATIENT REPORTS MEETING WITH WIRE WEAVER CLOTH, DR. GALO " EVERY COUPLE MONTHS" AND STRUGGLED TO RECALL LAST VISIT. PATIENT REPORTS THAT INSURANCE RECENTLY CHANGED TO MEDICAL. PATIENT REPORTS MEDICATION COMPLIANCE AND DENIES BARRIERS IN ACCESSING NEEDED MEDICATIONS. PATIENT REPORTS PICKING UP MEDICATIONS FROM [facility] IN [place], WHEN NEEDED. PATIENT DENIES BARRIERS IN ADEQUATE FOOD SOURCES. PATIENT REPORTS BEING INDEPENDENT IN ALL ACTIVITIES AND DENIES USE OF DME. PT DENIES MH HX. PT REPORTS SA HX, PRIMARY SUBSTANCE OF CHOICE METHAMPHETAMINE.PATIENT STRUGGLED TO RECALL LAST USE. PT REPORTS THAT SUBSTANCE USE IS NOT A PROBLEM AND ONLY USES RECREATIONALLY, MOST RECENTLY SHE HAS RECENTLY LOST HER SISTER AND MOTHER. PATIENT REPORTS UTILIZING COPING SKILL. SW ATTEMPTED TO ASSIST CLIENT IN IDENTIFYING HEALTHY COPING SKILLS. PATIENT SIMPLY NODDED HER HEAD. PATIENT ACCEPTED [facility] SUBSTANCE USE RESOURCES OFFERED BY GENOVEVA. DC PLAN IS FOR PATIENT TO RETURN HOME WITH FAMILY AIDING IN CARE, IF REQUIRED. PATIENT ACCEPTED SA RESOURCES PROVIDED BY GENOVEVA. Addendum: 03/07/22 at 0922 by Blaine CLOUD GENOVEVA OUTREACHED TO PATIENTS PCP OFFICE AT [phone]. GENOVEVA SPOKE WITH CHACE; APPT SCHEDULED FOR 03/08/22 AT 2:[address] TALBERT, [facility] [address] [facility] [address] PATIENT WAS PROVIDED WITH APPT DETAILS THAT INCLUDED; DATE, TIME, ADDRESS, PHONE NUMBER AND DR. PATIENT ACCEPTED APPT.
--- NOTE | 2022-03-01 14:25 | NUR ---
PT LEFT THE FACILITY ACCOMPANIED BY DAUGHTER, ALL PAPERWORK SIGNED. BELONGINGS GIVEN.
[2022-03-16] MEDS ORDERED: PANT40EC56 PO (17:54)
[2022-03-16] MEDS ORDERED: ESCI20TA49 PO (17:54)
[2022-03-16] MEDS ORDERED: LOSA25TA1 PO (17:54)
[2022-03-16] MEDS ORDERED: KEP500 PO (17:54)
[2022-03-16] MEDS ORDERED: ASPI81CT95 PO (17:54)
[2022-03-16] MEDS ORDERED: FURO-570 PO (17:54)
[2022-03-16] MEDS ORDERED: CARV6.252 PO (17:54)
[2022-03-16] MEDS ORDERED: ATOR20TA40 PO (17:54)
[2022-03-16] MEDS ORDERED: SPIR25TA PO (17:54)
== END 2022-03-01 14:25 | disposition home or self-care (01) | DRG 190 ==
LOC: MED 05:40 → MTU 11:11
PROVIDERS: ADMIT Family Medicine; ATTEND Family Medicine
DX: I21.4 Non-ST elevation (NSTEMI) myocardial infarction (principal); I50.43 Acute on chronic combined systolic (congestive) and diastolic (congestive) heart failure; E44.0 Moderate protein-calorie malnutrition; I42.9 Cardiomyopathy, unspecified; R65.10 Systemic inflammatory response syndrome (SIRS) of non-infectious origin without acute organ dysfunction; I11.0 Hypertensive heart disease with heart failure; J44.1 Chronic obstructive pulmonary disease with (acute) exacerbation; E78.5 Hyperlipidemia, unspecified; E83.42 Hypomagnesemia; F17.210 Nicotine dependence, cigarettes, uncomplicated; I25.10 Atherosclerotic heart disease of native coronary artery without angina pectoris; Z20.822 Contact with and (suspected) exposure to COVID-19; K21.9 Gastro-esophageal reflux disease without esophagitis; F15.10 Other stimulant abuse, uncomplicated; Z91.19 Patient's noncompliance with other medical treatment and regimen; Z79.899 Other long term (current) drug therapy; Z86.73 Personal history of transient ischemic attack (TIA), and cerebral infarction without residual deficits; Z88.0 Allergy status to penicillin; Z88.8 Allergy status to other drugs, medicaments and biological substances; Z79.82 Long term (current) use of aspirin; Z68.21 Body mass index [BMI] 21.0-21.9, adult
CPT/HCPCS: 36415; 71045; 80048; 80053; 80305; 81001; 82150; 83036; 83690; 83735; 83880; 84100; 84436; 84439; 84443; 84479; 84484; 85025; 85610; 85730; 93005; 94640; 99285; J1885; J1940; J2060; J7512; J7613; J7644; Q0092

== ENCOUNTER 2022-03-18 03:38 | Emergency (ER) | payer MEDICAID ==
[~2022-03-18] VITALS: Ht 157.5 cm; Wt 79.4 kg
[2022-03-18 03:50] VITALS: BP 128/44
--- NOTE | 2022-03-18 04:00 | NUR ---
PT TO BD #4
[2022-03-18] MEDS ORDERED: FUROSEMIDE 40 MG/4 ML VIAL IVP ONE ×2 (04:05→05:23)
--- NOTE | 2022-03-18 04:07 | NUR ---
0400: PT CAME IN FOR CHEST PAIN, A/OX4, DENIES ANY PAIN FOR NOW. 0405: EKG PERFORMED BY JALIL MONSIVAIS.
[2022-03-18] MEDS ORDERED: NITROGLYCERIN 2% 1 GM PKT TP ONE (04:20)
[2022-03-18] MEDS ORDERED: ASPIRIN 325 MG TAB PO ONE (04:20)
[2022-03-18] MEDS ORDERED: ENOXAPARIN 80 MG/0.8 ML SYR SUBQ ONE (04:20)
[2022-03-18] MEDS ORDERED: MORPHINE SULFATE 4 MG/ML SYR IVP ONE (04:20)
[2022-03-18] MEDS ORDERED: LORazepam 1 MG TAB PO ONE (04:50)
--- NOTE | 2022-03-18 04:50 | NUR ---
PT REQUESTING ANXIETY MEDICATION. DR. MCGOWAN NOTIFIED.
--- NOTE | 2022-03-18 05:15 | NUR ---
iv established, labs drawn
--- NOTE | 2022-03-18 05:34 | NUR ---
ALL MEDS ORDERED GIVEN.
[2022-03-18 05:43] LABS: BASOPHILS % (AUTO) 0.9 % (0.0-2.0); EOSINOPHILS # (AUTO) 0.1 K/uL (0-0.4); EOSINOPHILS % (AUTO) 1.8 % (0.0-4.0); HEMATOCRIT 36.8 % (36-48); HEMOGLOBIN 12.1 g/dL (12.0-16.0); LYMPHOCYTES % (AUTO) 37.9 % (20.5-51.1); MEAN CORPUSCULAR HEMOGLOBIN 29 pg (27-31); MEAN CORPUSCULAR HGB CONC 33 g/dL (33-37); MEAN CORPUSCULAR VOLUME 87.6 fL (80-94); MONOCYTES # (AUTO) 0.6 K/uL (0.8-1.0); MONOCYTES % (AUTO) 11.7 % (1.7-9.3); NEUTROPHILS # (AUTO) 2.5 K/uL (1.8-7.7); NEUTROPHILS % (AUTO) 47.7 % (42.2-75.2); PLATELET COUNT (AUTO) 246 K/uL (140-450); WHITE BLOOD COUNT (AUTO) 5.2 K/uL (4.8-10.8)
[2022-03-18 06:03] LABS: ALBUMIN 3.2 g/dL (3.4-5.0); CARBON DIOXIDE 27.3 mmol/L (21-32); POTASSIUM 4.3 mmol/L (3.5-5.1); TOTAL BILIRUBIN 0.3 mg/dL (0.0-1.0)
--- NOTE | 2022-03-18 06:14 | NUR ---
TROPONIN 1256. DR. MCGOWAN MADE AWARE.
--- NOTE | 2022-03-18 07:01 | NUR ---
PT'S SLEEPING COMFORTABLY. WILL ENDORSE TO AM BLUEPRINT MACHINE OPERATOR TO ASSUME PLAN OF CARE.
--- NOTE | 2022-03-18 07:09 | NUR ---
TROP IS 1248, DR. QUIROS AWARE.
--- NOTE | 2022-03-18 07:12 | NUR ---
REPORT GIVEN TO REAL RICO
--- NOTE | 2022-03-18 07:13 | NUR ---
REPORT RECEIVED FROM AMOR VIERA. TRANSFER OF CARE AT THIS TIME
[2022-03-18] MEDS ORDERED: ATI.5 PO (07:15)
--- NOTE | 2022-03-18 07:50 | NUR ---
IV removed, catheter intact and site benign. Applied folded 4x4 gauze and tape to stop bleeding.
[2022-03-18 08:00] VITALS: BP 100/64
--- NOTE | 2022-03-18 08:00 | NUR ---
Patient discharged with v/s stable. Written and verbal after care instructions FOR NON SPECIFIC CHEST PAIN AND GENERALIZED ANXIETY DISORDER given and explained. Patient alert, oriented and verbalized understanding of instructions. Ambulatory with steady gait. All questions addressed prior to discharge. ID band removed. Patient advised to follow up with PMD. Rx of ATIVAN given. Opportunity to ask questions provided and answered. [place] [address] [place] [id number]
== END 2022-03-18 08:00 | disposition home or self-care (01) ==
LOC: MED 03:38
DX: I50.9 Heart failure, unspecified (principal); R07.9 Chest pain, unspecified; F41.9 Anxiety disorder, unspecified; I25.10 Atherosclerotic heart disease of native coronary artery without angina pectoris; I10 Essential (primary) hypertension; J45.909 Unspecified asthma, uncomplicated; J44.9 Chronic obstructive pulmonary disease, unspecified; Z88.0 Allergy status to penicillin; Z86.73 Personal history of transient ischemic attack (TIA), and cerebral infarction without residual deficits; Z88.8 Allergy status to other drugs, medicaments and biological substances; Z79.899 Other long term (current) drug therapy
CPT/HCPCS: 36415; 71045; 80053; 83880; 84484; 85025; 93005; 96372; 96374; 96375; 99285; J1650; J1940; J2270; Q0092

== ENCOUNTER 2022-06-07 07:17 | Inpatient (IN) | payer MEDICAID ==
[~2022-06-07] VITALS: Ht 157.5 cm; Wt 64.9 kg
[~2022-06-07 07:17] MED LIST changes: +ATI.5 PO
--- NOTE | 2022-06-07 07:18 | NUR ---
PT GLORIA BLS. TAKEN TO BED 8
[2022-06-07 07:19] VITALS: BP 134/83
--- NOTE | 2022-06-07 07:23 | NUR ---
Dr. Rahman evaluating pt at bedside
--- NOTE | 2022-06-07 07:23 | NUR ---
61/F BIBA c/o anxiety and SOB x 2-3 days. Pt states recently ran out of Xanax with stressors at home. Patient A&Ox4, ambulatory; also reports 2 days of left-sided chest pain, 7/10, stabbing/intermittent, radiating down left arm. Pt reports bilateral LE swelling x 2 days. Denies fever, chills, cough, abdominal pain, headache, dizziness. Lung sounds CTA. security monitor in place SpO2 100% R/A, RR 17 even/unlabored. Bed locked in lowest position, side rails x 1. PMH: CHF, anxiety, HLD, HTN Meds: lasix, atorvastatin, keppra, losartan, carvedilol Allergies: PCN, lisinopril
--- NOTE | 2022-06-07 07:24 | NUR ---
EMT at bedside for EKG
[2022-06-07] MEDS ORDERED: LORazepam 1 MG TAB PO ONE (07:25)
--- NOTE | 2022-06-07 07:37 | NUR ---
RAD at bedside
--- NOTE | 2022-06-07 07:48 | NUR ---
Pt with both eyes closed in high-fowlers with SpO2 85% on room air. Pt awaken; SpO2 97% pt states desaturation when asleep.
[2022-06-07 08:31] LABS: BASOPHILS # (AUTO) 0.1 K/uL (0.00-0.22); BASOPHILS % (AUTO) 1.2 % (0.0-2.0); EOSINOPHILS # (AUTO) 0.1 K/uL (0-0.4); EOSINOPHILS % (AUTO) 1.7 % (0.0-4.0); HEMATOCRIT 36.9 % (36-48); HEMOGLOBIN 11.9 g/dL (12.0-16.0); LYMPHOCYTES # (AUTO) 1.5 K/uL (2.5-16.5); LYMPHOCYTES % (AUTO) 27.9 % (20.5-51.1); MEAN CORPUSCULAR HEMOGLOBIN 28 pg (27-31); MEAN CORPUSCULAR HGB CONC 32 g/dL (33-37); MEAN CORPUSCULAR VOLUME 86.3 fL (80-94); MONOCYTES # (AUTO) 0.6 K/uL (0.8-1.0); MONOCYTES % (AUTO) 10.9 % (1.7-9.3); NEUTROPHILS # (AUTO) 3.1 K/uL (1.8-7.7); NEUTROPHILS % (AUTO) 58.3 % (42.2-75.2); PLATELET COUNT (AUTO) 255 K/uL (140-450); RED BLOOD CELL COUNT(AUTO) 4.28 MIL/uL (4.20-5.40); WHITE BLOOD COUNT (AUTO) 5.4 K/uL (4.8-10.8)
[2022-06-07 08:51] LABS: ALBUMIN 3.1 g/dL (3.4-5.0); ANION GAP 13.2 (8-16); CARBON DIOXIDE 28.5 mmol/L (21-32); CREATININE 0.9 mg/dL (0.6-1.3); POTASSIUM 3.7 mmol/L (3.5-5.1); TOTAL BILIRUBIN 0.5 mg/dL (0.0-1.0)
--- NOTE | 2022-06-07 09:25 | NUR ---
Dr. Rahman reevaluating pt at bedside
[2022-06-07] MEDS ORDERED: FUROSEMIDE 40 MG/4 ML VIAL IVP ONE (09:35)
--- NOTE | 2022-06-07 09:45 | NUR ---
SpO2 91% with patient awake; placed on 2L via N/C. SpO2 98% at this time patient states relief.
--- NOTE | 2022-06-07 09:48 | NUR ---
Chucks applied and pure wick in place.
--- NOTE | 2022-06-07 09:50 | NUR ---
Jsoé Miguel marques walked to lab and handed to CPT. North
[2022-06-07] MEDS ORDERED: POTASSIUM CHLORIDE 10 MEQ TABER PO PRN (10:05)
[2022-06-07] MEDS ORDERED: LORazepam 2 MG/ML VIAL IVP PRN (10:05)
[2022-06-07] MEDS ORDERED: ONDANSETRON 4 MG/2 ML VIAL IVP PRN (10:05)
[2022-06-07] MEDS ORDERED: ZOLPIDEM 10 MG TAB PO PRN (10:05)
[2022-06-07] MEDS ORDERED: ACETAMINOPHEN 325 MG TAB PO PRN (10:05)
[2022-06-07] MEDS ORDERED: MAG SULF 2000 MG/WATER PREMIX 50 ML IV PRN (10:05)
[2022-06-07] MEDS ORDERED: DOCUSATE SODIUM 100 MG GELCAP PO PRN (10:05)
--- NOTE | 2022-06-07 11:06 | NUR ---
Patient will be admitted to care of Dr. Mcpherson. Admited to Telemetry. Will go to room 111A. Belongings list completed. Report to AYLIN Alva.
[2022-06-07 12:00] VITALS: BP 135/86
--- NOTE | 2022-06-07 13:10 | NUR ---
RECEIVED PATIENT FROM ER ON RA. XAVI. WAS GIVEN LASIX IN THE ER AND AMBULATED TO THE [facility]. PT IS VERY THIRSTY AND HUNGRY. SKIN INTACT. IV TO LEFT AC 18G. WILL CONTINUE TO MONITOR.
[2022-06-07 16:00] VITALS: BP_SYST 123; BP_SYST 130; BP_DIAS 70; BP_DIAS 86
[2022-06-07] MEDS: MORPHINE SULFATE 2 MG/ML SYR IVP PRN ×2 (16:16→20:49)
[2022-06-07] MEDS: FUROSEMIDE 40 MG/4 ML VIAL IVP SCH ×3 (16:25→22:00)
[2022-06-07] MEDS: carvediloL 6.25 MG TAB PO SCH (17:06)
--- NOTE | 2022-06-07 19:22 | NUR ---
GAVE REPORT TO [facility] FOR CONTINUITY OF CARE.
[2022-06-07 20:00] VITALS: BP 110/66
--- NOTE | 2022-06-07 20:45 | NUR ---
C/O PAIN , BP 110/ 66 , HR 80 , WILL MEDICATE , CALL LIGHT WITHIN REACH .
[2022-06-07] MEDS: levETIRAcetam 100 MG/ML ORASYR PO SCH (20:50)
--- NOTE | 2022-06-07 22:00 | NUR ---
BP RE CHECK 90/60 - NO C/O PAIN , CALL LIGHT WITHIN REACH . Addendum: 06/07/22 at 8976 by Allison Solis RN KATIUSKA HOLBROOK GIVEN BY RAFFY BUSTAMANTE AT 1987 - COLIN
[2022-06-08] VITALS: BP 89/65
--- NOTE | 2022-06-08 | NUR ---
ROUNDS , NO S/SX OF ACUTE DISTRESS NOTED . CALL LIGHT WITHIN REACH .
--- NOTE | 2022-06-08 01:00 | NUR ---
BP RE CHECK 105 , NO COMPLAIN ZHENG AT THIS TIME .
[2022-06-08 04:00] VITALS: BP 108/58
--- NOTE | 2022-06-08 04:00 | NUR ---
ROUNDS , NO S/SX OF ACUTE DISTRESS NOTED , CALL LIGHT WITHIN REACH .
[2022-06-08] MEDS: FUROSEMIDE 40 MG/4 ML VIAL IVP SCH ×2 (05:00→16:47)
[2022-06-08 06:30] LABS: BASOPHILS % (AUTO) 0.8 % (0.0-2.0); EOSINOPHILS # (AUTO) 0.1 K/uL (0-0.4); EOSINOPHILS % (AUTO) 1.7 % (0.0-4.0); HEMATOCRIT 34.6 % (36-48); HEMOGLOBIN 11.1 g/dL (12.0-16.0); LYMPHOCYTES # (AUTO) 1.7 K/uL (2.5-16.5); LYMPHOCYTES % (AUTO) 32.6 % (20.5-51.1); MEAN CORPUSCULAR HEMOGLOBIN 28 pg (27-31); MEAN CORPUSCULAR HGB CONC 32 g/dL (33-37); MEAN CORPUSCULAR VOLUME 87.1 fL (80-94); MONOCYTES # (AUTO) 0.8 K/uL (0.8-1.0); MONOCYTES % (AUTO) 14.5 % (1.7-9.3); NEUTROPHILS # (AUTO) 2.7 K/uL (1.8-7.7); NEUTROPHILS % (AUTO) 50.4 % (42.2-75.2); PLATELET COUNT (AUTO) 221 K/uL (140-450); RED BLOOD CELL COUNT(AUTO) 3.97 MIL/uL (4.20-5.40); RED CELL DISTRIBUTION WIDTH 15.9 % (11.6-13.7); WHITE BLOOD COUNT (AUTO) 5.3 K/uL (4.8-10.8)
[2022-06-08 06:49] LABS: ANION GAP 11.5 (8-16); CARBON DIOXIDE 28.8 mmol/L (21-32); CREATININE 1.1 mg/dL (0.6-1.3); POTASSIUM 3.3 mmol/L (3.5-5.1)
--- NOTE | 2022-06-08 07:15 | NUR ---
HIT THE CALL LIGHT - VISIT THE BP C/O PAIN ON THE BACK NON RADIATING , BP 121/79 , HR 80 - WILL MEDICATE . Addendum: 06/08/22 at 0720 by Allison Solis RN O2 SAT 96% - MORPHINE TIV GIVEN SLOW IV PUSH - WILL ENDORSE . Addendum: 06/08/22 at 0811 by Allison Solis RN ENDORSE TO BOGDAN , SEND SOMEONE TO PROVIDE NEW GOWN TO THE PT. PT HAD SPONGE BATH BY HERSELF . BOGDAN VERBALIZES UNDERSTANDING
[2022-06-08] MEDS: MORPHINE SULFATE 2 MG/ML SYR IVP PRN ×4 (07:18→23:58)
[2022-06-08 08:00] VITALS: BP 106/79
[2022-06-08] MEDS: carvediloL 6.25 MG TAB PO SCH ×2 (08:30→16:46)
[2022-06-08] MEDS: SPIRONOLACTONE 50 MG TAB PO SCH (08:32)
[2022-06-08] MEDS: ASPIRIN 81 MG TAB.CHEW PO SCH (08:33)
[2022-06-08] MEDS: LOSARTAN 25 MG TAB PO SCH (08:34)
[2022-06-08] MEDS: ATORVASTATIN 20 MG TAB PO SCH (08:36)
[2022-06-08] MEDS: ESCITALOPRAM 20 MG TAB PO SCH (08:37)
[2022-06-08] MEDS: levETIRAcetam 100 MG/ML ORASYR PO SCH ×2 (08:38→19:52)
--- NOTE | 2022-06-08 09:06 | NUR ---
PATIENT HAS BEEN SCREENED AND CATEGORIZED MODERATE NUTRITION RISK. PATIENT WILL BE SEEN WITHIN 3-5 DAYS OF ADMISSION. REVIEWED BY HARSHAD BUTLER RD
[2022-06-08 12:00] VITALS: BP 102/51
[2022-06-08 16:00] VITALS: BP 100/53
--- NOTE | 2022-06-08 16:37 | NUR ---
06/08/2022 1600: EKG SHOWS PVC'S AND ST DEPRESSION. [id number].
[2022-06-08 18:07] VITALS: BP 97/65
--- NOTE | 2022-06-08 18:45 | NUR ---
PT WANTED MORPHINE, RETOOK BP AGAIN, TOO LOW TO GIVE MORPHINE AT 103/76. PT HAD LASIX AND COREG APPROX 1700,.WHICH LOWERED HER PRESSURE. INFORMED PT I WILL DEFER MORPHINE AT THIS TIME AND FERN PICKER CAN REEVALUATE. PATIENT VERBALIZED UNDERSTANDING.
[2022-06-09] MEDS: MORPHINE SULFATE 2 MG/ML SYR IVP PRN ×5 (04:06→22:34)
[2022-06-09 04:44] VITALS: BP 105/68
--- NOTE | 2022-06-09 05:03 | NUR ---
rn notes patient remains on room air, no sob noted. VSS. Requested for morphine every 4 hours.
[2022-06-09 08:00] VITALS: BP 122/85
[2022-06-09] MEDS: SPIRONOLACTONE 50 MG TAB PO SCH (08:14)
[2022-06-09] MEDS: ASPIRIN 81 MG TAB.CHEW PO SCH (08:15)
[2022-06-09] MEDS: LOSARTAN 25 MG TAB PO SCH (08:16)
[2022-06-09] MEDS: ESCITALOPRAM 20 MG TAB PO SCH (08:19)
[2022-06-09] MEDS: carvediloL 6.25 MG TAB PO SCH ×2 (08:19→16:41)
[2022-06-09] MEDS: ATORVASTATIN 20 MG TAB PO SCH (08:20)
[2022-06-09] MEDS: levETIRAcetam 100 MG/ML ORASYR PO SCH ×2 (08:21→21:48)
[2022-06-09] MEDS: FUROSEMIDE 40 MG/4 ML VIAL IVP SCH ×2 (09:00→16:40)
[2022-06-09 10:55] VITALS: BP 105/68
--- NOTE | 2022-06-09 13:17 | NUR ---
WHILE REVIEWING MED LIST FOR 111A, IT SHOWED NO ADMINISTRATION OF LASIX DOSE FOR 9AM. IT WAS GIVEN, UNABLE TO SCAN NOW DUE TO IT BEING GIVEN AND DISCARDED EARLIER. UNFORTUNATELY DOCUMENTATION WAS NOT SAVED. Addendum: 06/09/22 at 1343 by Artie Negro RN ALL 9AM MEDICATIOMS WERE GIVEN... I SCANNED ALL OF THEM BUT DID NOT SAVE. UNABLE TO MANUALLY TYPE IN ADMINISTRATION DUE TO [id number] TO SCAN ALL MEDS AND NOT INPUT VIA RX NUMBERS.
[2022-06-09 16:00] VITALS: BP 118/78
--- NOTE | 2022-06-09 19:30 | NUR ---
RECEIVED REPORT FROM DAY SHIFT NURSE BOGDAN FOR CONTINUITY OF CARE. PATIENT IS A&O X4. PATIENT IS ON ROOM AIR, BREATHING IS NORMAL WITH SYMMETRICAL RISE AND FALL OF CHEST. PATIENT'S IV IS A 18G LAC, NO FLUIDS RUNNING (SALINE LOCKED). PATIENT IS LYING HIGH-FOWLERS IN BED, SLEEPING. BED IS IN LOWEST POSITION, WHEELS LOCKED, CALL LIGHT IN PLACE. WILL CONTINUE TO OBSERVE PATIENT.
[2022-06-09 20:00] VITALS: BP 105/74
[2022-06-10] VITALS: BP 111/64
--- NOTE | 2022-06-10 | NUR ---
ADMINISTERED 2100 MEDICATIONS TO PATIENT. PATIENT TOLERATED WELL. PATIENT CALLED AT 2220 AND REQUESTED PAIN MEDICATION FOR 7/10 CHEST PAIN. OBTAINED PATIENT'S BP 102/71, HR 74. CHECKED PATIENT'S CHART, MORPHINE WAS APPROPRIATE TO GIVE. ADMINISTERED MEDICATION TO PATIENT. PATIENT TOLERATED WELL. PATIENT'S BREATHING IS NORMAL WITH SYMMETRICAL RISE AND FALL OF CHEST. WILL CONTINUE TO OBSERVE PATIENT.
[2022-06-10] MEDS: MORPHINE SULFATE 2 MG/ML SYR IVP PRN ×2 (03:11→08:32)
[2022-06-10 04:00] VITALS: BP 118/69
--- NOTE | 2022-06-10 04:00 | NUR ---
CONTINUED TO LOOK IN ON PATIENT THROUGH THE NIGHT. PATIENT HAS EATEN A HAM AND CHEESE SANDWICH, TWO JELLO CUPS AND HAD A JUICE TO DRINK. PATIENT CALLED AND ASKED FOR PAIN MEDICATION MORPHINE AGAIN AT 0300; CHECKED PATIENT'S VITALS: BP WAS 118/69, HR 85. CHECKED PATIENT'S CHART, MORPHINE WAS APPROPRIATE TO GIVE. ADMINISTERED MORPHINE TO PATIENT. PATIENT TOLERATED WELL. PATIENT STATED THAT SHE WAS GOING TO TRY AND GET SOME SLEEP. WILL CONTINUE TO OBSERVE PATIENT.
--- NOTE | 2022-06-10 07:30 | NUR ---
ENDORSED CARE OF PATIENT TO DAY SHIFT NURSE ADZE FOR CONTINUITY OF CARE. PATIENT IS STABLE.
[2022-06-10] MEDS: LOSARTAN 25 MG TAB PO SCH (08:28)
[2022-06-10] MEDS: SPIRONOLACTONE 50 MG TAB PO SCH (08:28)
[2022-06-10] MEDS: ASPIRIN 81 MG TAB.CHEW PO SCH (08:29)
[2022-06-10] MEDS: carvediloL 6.25 MG TAB PO SCH (08:29)
[2022-06-10] MEDS: FUROSEMIDE 40 MG/4 ML VIAL IVP SCH (08:29)
[2022-06-10] MEDS: ATORVASTATIN 20 MG TAB PO SCH (08:29)
[2022-06-10] MEDS: ESCITALOPRAM 20 MG TAB PO SCH (08:30)
[2022-06-10] MEDS: levETIRAcetam 100 MG/ML ORASYR PO SCH (08:31)
[2022-06-10] MEDS ORDERED: ASPI81CT95 PO (09:57)
[2022-06-10] MEDS ORDERED: FURO-570 PO (09:57)
[2022-06-10] MEDS ORDERED: LOSA25TA1 PO (09:57)
[2022-06-10] MEDS ORDERED: PANT40EC56 PO (09:57)
[2022-06-10] MEDS ORDERED: CARV6.252 PO (09:57)
[2022-06-10] MEDS ORDERED: ATOR20TA40 PO (09:57)
[2022-06-10] MEDS ORDERED: SPIR25TA PO (09:57)
== END 2022-06-10 11:55 | disposition home or self-care (01) | DRG 194 ==
LOC: MED 07:17 → MTU 10:04
PROVIDERS: ADMIT Family Medicine; ATTEND Family Medicine
DX: I11.0 Hypertensive heart disease with heart failure (principal); E44.0 Moderate protein-calorie malnutrition; J44.1 Chronic obstructive pulmonary disease with (acute) exacerbation; I42.8 Other cardiomyopathies; E83.51 Hypocalcemia; I50.43 Acute on chronic combined systolic (congestive) and diastolic (congestive) heart failure; I42.9 Cardiomyopathy, unspecified; D64.9 Anemia, unspecified; E83.42 Hypomagnesemia; I25.10 Atherosclerotic heart disease of native coronary artery without angina pectoris; E78.5 Hyperlipidemia, unspecified; Z20.822 Contact with and (suspected) exposure to COVID-19; F41.9 Anxiety disorder, unspecified; F15.10 Other stimulant abuse, uncomplicated; K21.9 Gastro-esophageal reflux disease without esophagitis; F17.210 Nicotine dependence, cigarettes, uncomplicated; Z91.199 Patient's noncompliance with other medical treatment and regimen due to unspecified reason; Z68.26 Body mass index [BMI] 26.0-26.9, adult; Z79.82 Long term (current) use of aspirin; Z88.0 Allergy status to penicillin; Z88.8 Allergy status to other drugs, medicaments and biological substances; Z86.73 Personal history of transient ischemic attack (TIA), and cerebral infarction without residual deficits; Z71.6 Tobacco abuse counseling; Z71.51 Drug abuse counseling and surveillance of drug abuser
CPT/HCPCS: 36415; 71045; 80048; 80053; 83735; 83880; 84484; 85025; 87081; 93005; 96374; 99285; J1940; J2270; J3475; Q0092

== ENCOUNTER 2022-12-19 13:11 | Inpatient (IN) | payer MEDICAID ==
[~2022-12-19] VITALS: Ht 167.6 cm; Wt 81.6 kg
[~2022-12-19 13:11] MED LIST changes: -ATI.5 PO; -LORA-476 PO
[2022-12-19 13:27] VITALS: BP 154/59; PULSE 70; RESP 22; TEMP 98.2; O2SAT 94
--- NOTE | 2022-12-19 13:30 | NUR ---
PT W/C ASSISTED TO BED 2
[2022-12-19 13:45] VITALS: O2SAT 94
--- NOTE | 2022-12-19 13:45 | NUR ---
62YO FEMALE PT BIB DAUGHTER C/O INCREASED SHARP CHEST PAIN AND SOB XLASTNIGHT. REPORTS INITIAL ONSET W/ COUGH X2DAYS. CLEAR MELISSA LUNG SOUNDS. DENIES RADIATION, N/V/D, FEVER, CHILLS OR RELIEF AFTER TYLENOL. PT AAOX4, ON TREE AND SHRUB TECHNICIAN. HOB POSITIONED PER COMFORT. CALL LIGHT WITHIN REACH. HX: CHF, CAD, HTN, CVA ALLERGIES: PENICILLIN, LISINOPRIL
--- NOTE | 2022-12-19 13:55 | NUR ---
MD ADBI AT BEDSIDE FOR EVALUATION
[2022-12-19] MEDS ORDERED: ASPIRIN 325 MG TAB PO ONE (14:05)
[2022-12-19] MEDS ORDERED: MORPHINE SULFATE 2 MG/ML SYR IVP ONE (14:05)
--- NOTE | 2022-12-19 14:15 | NUR ---
xray at bedside
--- NOTE | 2022-12-19 14:15 | NUR ---
lab at bedside
[2022-12-19 14:22] LABS: BASOPHILS # (AUTO) 0.1 K/uL (0.00-0.22); BASOPHILS % (AUTO) 1.3 % (0.0-2.0); EOSINOPHILS # (AUTO) 0.1 K/uL (0-0.4); EOSINOPHILS % (AUTO) 1.7 % (0.0-4.0); HEMATOCRIT 35.9 % (36-48); HEMOGLOBIN 11.7 g/dL (12.0-16.0); LYMPHOCYTES # (AUTO) 1.7 K/uL (2.5-16.5); LYMPHOCYTES % (AUTO) 38.4 % (20.5-51.1); MEAN CORPUSCULAR HEMOGLOBIN 29 pg (27-31); MEAN CORPUSCULAR HGB CONC 33 g/dL (33-37); MEAN CORPUSCULAR VOLUME 89.7 fL (80-94); MONOCYTES # (AUTO) 0.6 K/uL (0.8-1.0); MONOCYTES % (AUTO) 14.1 % (1.7-9.3); NEUTROPHILS # (AUTO) 1.9 K/uL (1.8-7.7); NEUTROPHILS % (AUTO) 44.5 % (42.2-75.2); PLATELET COUNT (AUTO) 180 K/uL (140-450); RED BLOOD CELL COUNT(AUTO) 4.01 MIL/uL (4.20-5.40); RED CELL DISTRIBUTION WIDTH 14.4 % (11.6-13.7); WHITE BLOOD COUNT (AUTO) 4.3 K/uL (4.8-10.8)
[2022-12-19 14:47] LABS: ALBUMIN 3.2 g/dL (3.4-5.0); ANION GAP 9.8 (8-16); CARBON DIOXIDE 29.5 mmol/L (21-32); CREATININE 1.1 mg/dL (0.6-1.3); POTASSIUM 3.3 mmol/L (3.5-5.1); TOTAL BILIRUBIN 0.9 mg/dL (0.0-1.0)
[2022-12-19 14:55] VITALS: O2SAT 96
[2022-12-19] MEDS ORDERED: FUROSEMIDE 40 MG/4 ML VIAL IVP ONE (15:05)
[2022-12-19 15:13] LABS: PROTHROMBIN TIME 11.1 secs (10.8-13.4)
[2022-12-19] MEDS ORDERED: FURO40TA9 PO (15:32)
[2022-12-19] MEDS ORDERED: ASPI-1856 PO (15:32)
[2022-12-19] MEDS ORDERED: ESCI5TAB18 PO (15:37)
[2022-12-19] MEDS ORDERED: CARV6.25 PO (15:37)
[2022-12-19 15:50] VITALS: O2SAT 96
[2022-12-19] MEDS ORDERED: HYDROcodone/APAP 5/325 MG 1 TAB TAB PO PRN (16:20)
[2022-12-19] MEDS ORDERED: LORazepam 0.5 MG TAB PO PRN (16:20)
--- NOTE | 2022-12-19 18:03 | NUR ---
Patient will be admitted to care of [facility]. Admited to TELEMTRY. Will go to room 120A Belongings list completed. Report to PALMA VIERA
--- NOTE | 2022-12-19 18:30 | NUR ---
RECEIVE BEDSIDE REPORT THAT PATIENT COMES FROM HOME FOR L.SIDE CHEST PAIN W/ SOB & COUGH. , WHICH DIAGNOSIS W/ CHF/HEART FAILURE, ACS. PATIENT HAS HX OF HEART FAILURE, COPD CAD, CVA, GERD, HTN, ASTHMA; PATIENT IS AMBULATORY IN HOME, ALLERGY TO PENICILLINS, LISINOPRIL; CURRENT IS FULL CODE AND ADMIT UNDER CARE OF DR. YOUNG AND CARDIOLOGY CONSULATE UNDER DR. SOLIMAN. TELE. MONITOR SHOWS DYSRHYTHMIA. ALERT X 4 ON 4 LITER VIA NC. PIV AT LAC 20G WITH NO ACUTE SKIN ISSUE, VITAL WITH PATIENT'S BASELINE (T-P-R: 96.6-79-20, BP; 115/79, O2 SAT: 100% ON 4 LITER, 9/10 PAIN) AND 2 MG MORPHINE GIVE SHORTLY AFTER PATIENT ARRIVE FLOOR. PER ER NURSE, PATIENT RECEIVE ASPIRIN, LASIX, AND MORPHINE IN ER. POTASSIUM =3.3 HAS NOT CORRECT YET. ON STRICT I & O. NEED DIET ORDER FROM PCP. WILL CONTINUE TO MONITOR Addendum: 12/19/22 at 1924 by Melissa Barr RN ENDORSE PATIENT TO PM SHIFT NURSE AFTER INITIAL ASSESSMENT DONE WHICH FOUND PATIENT'S BROTHER RECENT GET AND SHE ATTENDED THE "BIG CONSTITUTION PARTY." DID DRUG AND SMOKE, DRINK. PM SHIFT NURSE AWARE.
[2022-12-19] MEDS: MORPHINE SULFATE 2 MG/ML SYR IVP PRN (18:36)
[2022-12-19 18:48] LABS: BARBITURATE, URINE NEGATIVE ng/ml (NEG <=200); BENZODIAZEPINE, URINE NEGATIVE ng/mL (NEG <=200); CANNABINOID, URINE NEGATIVE ng/mL (NEG <=50); COCAINE, URINE NEGATIVE ng/mL (NEG <=300); OPIATE, URINE POSITIVE ng/mL (NEG <=2000); PHENCYCLIDINE SCREEN,URINE NEGATIVE ng/mL (NEG <=25)
[2022-12-19 19:01] VITALS: BP 115/79; PULSE 79; RESP 20; TEMP 96.6; O2SAT 100
--- NOTE | 2022-12-19 19:20 | NUR ---
RECEIVED PT FROM MORNING SHIFT NURSE. PT IS AOX4, BEDREST, ABLE TO VERBALIZE NEEDS AND ABLE TO FOLLOW COMMANDS. PT IS ON 4L NC AND ON CARDIAC DIET. PT HAS IV ON LEFT AC GAUGE 20, SALINE LOCK. PT SKIN IS INTACT. NO COMPLAIN OF PAIN AT THIS TIME. NO S/S OF RESPIRATORY DISTRESS NOTED. ALL SAFETY MEASURES IMPLEMENTED. BED IN LOW POSITION, BED WHEELS ON LOCK AND CALL LIGHT WITHIN REACH.
[2022-12-19] MEDS ORDERED: POTASSIUM CHLORIDE 10 MEQ TABER PO ONE ×2 (19:35→20:45)
[2022-12-19 20:00] VITALS: PULSE 78; PULSE 83; RESP 18; O2SAT 99
[2022-12-19] MEDS: ATORVASTATIN 20 MG TAB PO SCH (21:12)
[2022-12-19] MEDS: carvediloL 6.25 MG TAB PO SCH (21:17)
--- NOTE | 2022-12-19 21:17 | NUR ---
ALL SCHEDULED AND PRESCRIBED MEDICATION WAS GIVEN TO PT PER MD ORDER. K-DUR 4OMEQ WAS ALSO GIVEN TO PT DUE TO K-LEVEL OF 3.3. ALL SAFETY MEASURES IMPLEMENTED. BED IN LOW POSITION. BED WHEELS ON LOCK AND CALL LIGHT WITHIN REACH.
--- NOTE | 2022-12-19 22:00 | NUR ---
PT WAS GIVEN TUNA SANDWICH AND APPLE JUICE PER PT REQUEST. NO COMPLAIN OF PAIN. NO S/S OF RESPIRATORY DISTRESS NOTED. ALL SAFETY MEASURES IMPLEMENTED. BED IN LOW POSITION, BED WHEELS ON LOCK AND CALL LIGHT WITHIN REACH.
[2022-12-20] VITALS (8 sets, daily range): BP systolic 102–110; BP diastolic 56–80; PULSE 64–93; RESP 18–20; TEMP 97.1–98.6; O2SAT 96–100
--- NOTE | 2022-12-20 | NUR ---
PT IS ON SLEEP. CHEST RISE AND FALL SYMMETRICALLY NOTED. RESPIRATION IS EVEN AND UNLABORED. ALL SAFETY MEASURES IMPLEMENTED. BED IN LOW POSITION, BED WHEELS ON LOCK AND CALL LIGHT WITHIN REACH.
--- NOTE | 2022-12-20 02:00 | NUR ---
PT WAS GIVEN CRACKER AND DIET SODA PER PT REQUEST. NO COMPLAIN OF PAIN AT THIS TIME. NO S/S OF RESPIRATORY DISTRESS NOTED. ALL SAFETY MEASURES IMPLEMENTED. BED IN LOW POSITION, BED WHEELS ON LOCK AND CALL LIGHT WITHIN REACH.
[2022-12-20] MEDS: MORPHINE SULFATE 2 MG/ML SYR IVP PRN ×4 (03:29→22:47)
--- NOTE | 2022-12-20 03:29 | NUR ---
PRN PAIN MEDICATION WAS GIVEN TO PT DUE TO BACK PAIN WITH PAIN SCALE OF 10/10. ALL SAFETY MEASURES IMPLEMENTED. BED IN LOW POSITION, BED WHEELS ON LOCK AND CALL LIGHT WITHIN REACH.
--- NOTE | 2022-12-20 04:00 | NUR ---
PT REFUSED THE MORNING CARE. SHE JUST WANT TO SLEEP AND DO THE MORNING CARE AT AROUND 8-9AM. ALL SAFETY MEASURES IMPLEMENTED. BED IN LOW POSITION, BED WHEELS ON LOCK AND CALL LIGHT WITHIN REACH.
[2022-12-20 05:33] LABS: BASOPHILS % (AUTO) 0.9 % (0.0-2.0); EOSINOPHILS # (AUTO) 0.1 K/uL (0-0.4); EOSINOPHILS % (AUTO) 2.2 % (0.0-4.0); HEMATOCRIT 36.3 % (36-48); HEMOGLOBIN 11.9 g/dL (12.0-16.0); LYMPHOCYTES % (AUTO) 40.3 % (20.5-51.1); MEAN CORPUSCULAR HEMOGLOBIN 29 pg (27-31); MEAN CORPUSCULAR HGB CONC 33 g/dL (33-37); MEAN CORPUSCULAR VOLUME 89.9 fL (80-94); MONOCYTES # (AUTO) 0.9 K/uL (0.8-1.0); MONOCYTES % (AUTO) 17.7 % (1.7-9.3); NEUTROPHILS # (AUTO) 1.9 K/uL (1.8-7.7); NEUTROPHILS % (AUTO) 38.9 % (42.2-75.2); PLATELET COUNT (AUTO) 182 K/uL (140-450); RED BLOOD CELL COUNT(AUTO) 4.04 MIL/uL (4.20-5.40); RED CELL DISTRIBUTION WIDTH 14.6 % (11.6-13.7); WHITE BLOOD COUNT (AUTO) 4.9 K/uL (4.8-10.8)
[2022-12-20 05:37] LABS: ALBUMIN 3.1 g/dL (3.4-5.0); ANION GAP 10.6 (8-16); CARBON DIOXIDE 29.2 mmol/L (21-32); CREATININE 1.3 mg/dL (0.6-1.3); POTASSIUM 3.8 mmol/L (3.5-5.1); TOTAL BILIRUBIN 0.5 mg/dL (0.0-1.0)
--- NOTE | 2022-12-20 07:16 | NUR ---
PT IS STABLE. ENDORSED PT TO MORNING SHIFT NURSE FOR CONTINUITY OF CARE.
--- NOTE | 2022-12-20 07:17 | NUR ---
RECEIVED BEDSIDE REPORT TO NETWORK SYSTEMS OPERATOR NURSE FOR CONTINUITY OF CARE. PT IS ASLEEP, NO SIGN OF DISTRESS. CALL LIGHT WITHIN REACH.
--- NOTE | 2022-12-20 08:56 | NUR ---
PATIENT HAS BEEN SCREENED AND CATEGORIZED MODERATE NUTRITION RISK. PATIENT WILL BE SEEN WITHIN 3-5 DAYS OF ADMISSION. 12/22/22-12/24/[address]
[2022-12-20] MEDS ORDERED: carvediloL 6.25 MG TAB PO SCH (09:00)
[2022-12-20] MEDS: ASPIRIN 81 MG TAB.CHEW PO SCH (09:17)
[2022-12-20] MEDS: FUROSEMIDE 40 MG/4 ML VIAL IVP SCH ×2 (09:17→16:33)
[2022-12-20] MEDS: carvediloL 6.25 MG TAB PO SCH ×2 (09:17→20:42)
[2022-12-20] MEDS: SPIRONOLACTONE 50 MG TAB PO SCH (09:18)
--- NOTE | 2022-12-20 10:15 | NUR ---
FOUND PT ON 4LNC SATURATION AT 100% NO RESP DISTRESS NOTED . TITRATED PT TO ROOM AIR AT THIS TIME PT SATURATION IS AT 98% ON RA W/ SHRAVAN AMANDA. WILL CONT TO MONITOR PT Addendum: 12/20/22 at 1111 by JOSE DE JESUS CHANCE RT RN NOTIFIED
--- NOTE | 2022-12-20 12:15 | NUR ---
DC PLANNIN YRS OLD FEMALE PATIENT WAS ADMITTED FROM HOME WITH A DX OF ACS, HEART FAILURE. PATIENT HAS A HX OF HF, CAD, HTN, COPD, CVA AND GERD. CXR SHOWED MASSIVE CARDIOMEGALY WITH PROBABLE BORDERLINE CHF, METH ABUSE. ADMINISTERED IV LASIX AND MORPHINE FOR CHEST PAIN AND CONTINUED HOME MEDS. CONSULTED WITH FISH PEDDLER. DC PLAN TO GO HOME WHEN STABLE. CM TO FOLLOW Addendum: 12/21/22 at 1538 by CASE ACOSTA CM WENT TO BEDSIDE TO GIVE PATIENT THE FOLLOWING RECOURSES: HOW TO GET DISABILITY AND ALCOHOL/ SUBSTANCE ABUSE.
--- NOTE | 2022-12-20 12:30 | NUR ---
PT STATED THAT SHE WANTS THE PUREWICK OUT BECAUSE SHE CAN'T PEE. GAVE HER A BEDSIDE COMMODE AND SHE WAS ABLE TO PEE.
--- NOTE | 2022-12-20 18:00 | NUR ---
WENT TO PT FOR ROUNDS, PT WAS NOT WEARING HER NC, O2 SAT WAS AT 78%. GAVE 2L NC AND WENT UP TO 95%. INSTRUCTED PT TO CONTINUE WEARING IT.
--- NOTE | 2022-12-20 19:20 | NUR ---
GAVE BEDSIDE REPORT TO TITLE VEHICLE SERVICE ATTENDANT NURSE, PT IS STABLE, NO SIGN OF DISTRESS. CALL LIGHT WITHIN REACH.
--- NOTE | 2022-12-20 19:25 | NUR ---
RECEIVED PATIENT FROM AM NURSE FOR CONTINUITY OF CARE. PT IS STABLE
--- NOTE | 2022-12-20 19:52 | NUR ---
PT SEEN AND ASSESSED. PT ON 2L NASSAL CANNULA WITH SPO2 OF 96. NO RESPIRATORY DISTRESS NOTED AT THIS TIME.
[2022-12-20] MEDS: ATORVASTATIN 20 MG TAB PO SCH (20:24)
[2022-12-21] VITALS: BP 114/66; PULSE 60; PULSE 71; RESP 18; TEMP 97.6; O2SAT 96
[2022-12-21 04:00] VITALS: BP 116/60; PULSE 72; PULSE 86; RESP 18; TEMP 97.4; O2SAT 96
[2022-12-21 04:57] LABS: BASOPHILS % (AUTO) 0.8 % (0.0-2.0); EOSINOPHILS # (AUTO) 0.1 K/uL (0-0.4); EOSINOPHILS % (AUTO) 2.2 % (0.0-4.0); HEMATOCRIT 36.6 % (36-48); HEMOGLOBIN 11.9 g/dL (12.0-16.0); LYMPHOCYTES # (AUTO) 2.1 K/uL (2.5-16.5); LYMPHOCYTES % (AUTO) 38.1 % (20.5-51.1); MEAN CORPUSCULAR HEMOGLOBIN 29 pg (27-31); MEAN CORPUSCULAR HGB CONC 33 g/dL (33-37); MEAN CORPUSCULAR VOLUME 90.1 fL (80-94); MONOCYTES % (AUTO) 18.1 % (1.7-9.3); NEUTROPHILS # (AUTO) 2.2 K/uL (1.8-7.7); NEUTROPHILS % (AUTO) 40.8 % (42.2-75.2); PLATELET COUNT (AUTO) 173 K/uL (140-450); RED BLOOD CELL COUNT(AUTO) 4.07 MIL/uL (4.20-5.40); RED CELL DISTRIBUTION WIDTH 14.2 % (11.6-13.7); WHITE BLOOD COUNT (AUTO) 5.4 K/uL (4.8-10.8)
[2022-12-21] MEDS: MORPHINE SULFATE 2 MG/ML SYR IVP PRN ×2 (05:09→13:32)
[2022-12-21 06:03] LABS: ANION GAP 11.1 (8-16); CARBON DIOXIDE 28.5 mmol/L (21-32); CREATININE 1.1 mg/dL (0.6-1.3); POTASSIUM 3.6 mmol/L (3.5-5.1); TOTAL BILIRUBIN 0.3 mg/dL (0.0-1.0)
--- NOTE | 2022-12-21 07:10 | NUR ---
RECEIVED REPORT FROM FIREPR[employer]F DOOR MAKER NURSE FOR CONTINUITY OF CARE. PT IS ASLEEP, AWAKEN BY NAME, NO SIGN OF DISTRESS. CALL LIGHT WITHIN REACH.
[2022-12-21 08:00] VITALS: BP 115/85; PULSE 68; PULSE 80; RESP 18; TEMP 97.5; O2SAT 99
[2022-12-21] MEDS: ASPIRIN 81 MG TAB.CHEW PO SCH (08:54)
[2022-12-21] MEDS: carvediloL 6.25 MG TAB PO SCH (08:55)
[2022-12-21] MEDS: SPIRONOLACTONE 50 MG TAB PO SCH (08:55)
[2022-12-21] MEDS: FUROSEMIDE 40 MG/4 ML VIAL IVP SCH (08:56)
[2022-12-21] MEDS ORDERED: LOSARTAN 25 MG TAB PO SCH (09:00)
[2022-12-21 12:00] VITALS: BP 95/97; PULSE 64; PULSE 67; RESP 18; TEMP 96.9; O2SAT 99
[2022-12-21] MEDS ORDERED: FURO40TA9 PO (13:08)
[2022-12-21] MEDS ORDERED: SPIR50TA PO (13:08)
[2022-12-21 14:20] VITALS: O2SAT 96
[2022-12-21 15:35] VITALS: BP 95/97; PULSE 64; RESP 18; TEMP 96.9
--- NOTE | 2022-12-21 15:38 | NUR ---
CALLED [facility] TO FIND OUT WHOP PATIENT PCP IS DUE TO PATIENT NEED ING A CHF APPOINTMENT FOLLOW UP. CALL REFERENCE NUMBER [id number]. PATIENT BELONGS TO [facility]/ [facility] LOCATED AT [address] [place] [address]. SPOKE WITH ALBERTINA ABOUT TRYING TO SCHEDULE A FOLLOW UP APPOINTMENT AND SHE INFORMED ME THAT SINCE PATIENT IS NEW TO THE OFFICE SHE WOULD HAVE TO CALL HERSELF THE SCHEDULE HER APPOINTMENT DUE TO NEEDING PERSONAL INFORMATION DIRECTLY FROM PATIENT. WENT TO BED SIDE TO INFORM THE PATIENT OF THE INFO ABOVE WELL GAVE AN APPOINTMENT SLIP CONTAINING THAT SAME INFO. ALSO GAVE PATIENT [facility] TRANSPORTATION NUMBER.
--- NOTE | 2022-12-21 16:20 | NUR ---
PT IS DISCHARGED, UBER IS ARRANGED BY HOUSE SUP. ACCOMPANIED PT TO THE EXIT UNTIL UBER ARRIVED. DISCHARGE PAPERS GIVEN, ID BAND AND IV REMOVED. PT IS STABLE AND NO SIGN OF DISTRESS.
== END 2022-12-21 16:20 | disposition home or self-care (01) | DRG 194 ==
LOC: MED 13:11 → MTU 16:35
PROVIDERS: ADMIT Student in an Organized Health Care Education/Training Program; ATTEND Student in an Organized Health Care Education/Training Program
DX: I11.0 Hypertensive heart disease with heart failure (principal); R65.11 Systemic inflammatory response syndrome (SIRS) of non-infectious origin with acute organ dysfunction; I42.7 Cardiomyopathy due to drug and external agent; E44.0 Moderate protein-calorie malnutrition; I50.23 Acute on chronic systolic (congestive) heart failure; J44.9 Chronic obstructive pulmonary disease, unspecified; I25.10 Atherosclerotic heart disease of native coronary artery without angina pectoris; K21.9 Gastro-esophageal reflux disease without esophagitis; F17.200 Nicotine dependence, unspecified, uncomplicated; F15.10 Other stimulant abuse, uncomplicated; E87.6 Hypokalemia; Z91.148 Patient's other noncompliance with medication regimen for other reason; Z88.0 Allergy status to penicillin; Z88.8 Allergy status to other drugs, medicaments and biological substances; Y92.89 Other specified places as the place of occurrence of the external cause; Z68.29 Body mass index [BMI] 29.0-29.9, adult
CPT/HCPCS: 36415; 71045; 80053; 80305; 83880; 84484; 85025; 85610; 85730; 87081; 93005; 96374; 96375; 99291; J1940; J2270

== ENCOUNTER 2022-12-24 11:28 | Emergency (ER) | payer MEDICAID ==
[~2022-12-24] VITALS: Ht 157.5 cm; Wt 81.6 kg
[~2022-12-24 11:28] MED LIST changes: +ASPI-1856 PO; -ASPI81CT95 PO; +CARV6.25 PO; -CARV6.252 PO; -ESCI20TA49 PO; +ESCI5TAB18 PO; -FURO-570 PO; +FURO40TA9 PO; -KEP500 PO; -LOSA25TA1 PO; -SPIR25TA PO; +SPIR50TA PO; -TRAZ-343 PO
[2022-12-24 11:36] VITALS: BP 101/64; PULSE 82; RESP 24; TEMP 97.7; O2SAT 100
--- NOTE | 2022-12-24 11:36 | NUR ---
PATIENT WHEEL CHAIR ASSIT TO ER BED 01
--- NOTE | 2022-12-24 12:12 | NUR ---
X-Ray at bedside.
[2022-12-24 12:24] LABS: BASOPHILS # (AUTO) 0.1 K/uL (0.00-0.22); BASOPHILS % (AUTO) 1.3 % (0.0-2.0); EOSINOPHILS # (AUTO) 0.1 K/uL (0-0.4); EOSINOPHILS % (AUTO) 1.7 % (0.0-4.0); HEMATOCRIT 37.5 % (36-48); HEMOGLOBIN 12.2 g/dL (12.0-16.0); LYMPHOCYTES # (AUTO) 2.1 K/uL (2.5-16.5); LYMPHOCYTES % (AUTO) 47.5 % (20.5-51.1); MEAN CORPUSCULAR HEMOGLOBIN 29 pg (27-31); MEAN CORPUSCULAR HGB CONC 33 g/dL (33-37); MEAN CORPUSCULAR VOLUME 89.6 fL (80-94); MONOCYTES # (AUTO) 0.6 K/uL (0.8-1.0); MONOCYTES % (AUTO) 12.5 % (1.7-9.3); NEUTROPHILS # (AUTO) 1.6 K/uL (1.8-7.7); PLATELET COUNT (AUTO) 181 K/uL (140-450); RED BLOOD CELL COUNT(AUTO) 4.18 MIL/uL (4.20-5.40); RED CELL DISTRIBUTION WIDTH 14.3 % (11.6-13.7); WHITE BLOOD COUNT (AUTO) 4.4 K/uL (4.8-10.8)
--- NOTE | 2022-12-24 12:38 | NUR ---
62 y/o female c/o chest pain x yesterday. Patient was admitted here on 12/19/22 and was discharged on 12/21/22. Denies any vomiting, fevers or SOB. Patient does report nausea. Patient did not take medication today. Medical History: HTN, CHF and Histroy of Stroke ALLERGY: PENICILLIN, LISINOPRIL
[2022-12-24 12:48] LABS: ALBUMIN 3.3 g/dL (3.4-5.0); CARBON DIOXIDE 26.5 mmol/L (21-32); CREATININE 1.1 mg/dL (0.6-1.3); POTASSIUM 3.5 mmol/L (3.5-5.1); TOTAL BILIRUBIN 0.4 mg/dL (0.0-1.0)
[2022-12-24] MEDS ORDERED: MORPHINE SULFATE 4 MG/ML SYR IVP ONE (13:10)
[2022-12-24] MEDS ORDERED: ASPIRIN 325 MG TAB PO ONE (13:50)
--- NOTE | 2022-12-24 13:50 | NUR ---
Patient is alert and verbally responsive. All needs met by staff. Call light is within reach.
[2022-12-24] MEDS ORDERED: ACET-8905 PO (14:07)
--- NOTE | 2022-12-24 14:12 | NUR ---
PT PENDING DISCHARGE. PT CALLED FAMILY TO COME AND PICK-UP PT. PT AWARE THAT SHE IS NOT TO DRIVE UNDER THE INFLUENCE OF MORPHINE.
--- NOTE | 2022-12-24 14:40 | NUR ---
DR CHAPARRO WAS NOTIFIED RE ELEVATED TROPONIN, PER MD SHE SPOKE WITH SENIOR BIOSTATISTICIAN AND THERE IS NO CHANGE IN PLAN ,PT WILL STILL BE DC HOME
--- NOTE | 2022-12-24 15:20 | NUR ---
IV removed, catheter intact and site benign. Applied folded 4x4 gauze and tape to stop bleeding.
[2022-12-24 15:21] VITALS: BP 124/85; PULSE 72; RESP 16; TEMP 97.2; O2SAT 98
--- NOTE | 2022-12-24 15:21 | NUR ---
Patient's pain has decreased with medication. Patient discharged with v/s stable. Written and verbal after care instructions given. Patient alert, oriented and verbalized understanding of instructions. Ambulatory with steady gait. All questions addressed prior to discharge. ID band removed. Patient advised to follow up with PMD. Rx of Hydrocodone-Acetaminophen given. Opportunity to ask questions provided and answered.
--- NOTE | 2022-12-24 16:36 | NUR ---
The patient's care was reviewed and supervised by ANDREW BARKLEY RN.
[2022-12-25] MEDS ORDERED: ASPIRIN 325 MG TABEC PO SCH (09:00)
== END 2022-12-24 16:36 | disposition home or self-care (01) ==
LOC: MED 11:28
DX: R07.9 Chest pain, unspecified (principal); R77.8 Other specified abnormalities of plasma proteins; J45.909 Unspecified asthma, uncomplicated; J44.9 Chronic obstructive pulmonary disease, unspecified; I11.0 Hypertensive heart disease with heart failure; K21.9 Gastro-esophageal reflux disease without esophagitis; F15.90 Other stimulant use, unspecified, uncomplicated; Z86.73 Personal history of transient ischemic attack (TIA), and cerebral infarction without residual deficits; Z72.89 Other problems related to lifestyle; Z79.899 Other long term (current) drug therapy
CPT/HCPCS: 36415; 71045; 80053; 83880; 84484; 85025; 93005; 96374; 99285; J2270

== ENCOUNTER 2023-01-26 16:50 | Inpatient (IN) | payer MEDICAID ==
[~2023-01-26] VITALS: Ht 157.5 cm; Wt 78.0 kg
[~2023-01-26 16:50] MED LIST changes: +ACET-8905 PO
[2023-01-26 16:58] VITALS: BP 142/88; PULSE 87; RESP 22; TEMP 96.1; O2SAT 99
[2023-01-26] MEDS ORDERED: ACETAMINOPHEN EXTRA STRENGTH 500 MG TAB PO ONE (17:20)
[2023-01-26] MEDS ORDERED: NITROGLYCERIN 2% 1 GM PKT TP ONE (18:20)
[2023-01-26] MEDS ORDERED: ASPIRIN 325 MG TAB PO ONE (18:20)
[2023-01-26] MEDS ORDERED: MORPHINE SULFATE 4 MG/ML SYR IVP ONE ×2 (18:20→20:00)
[2023-01-26 18:38] LABS: BASOPHILS # (AUTO) 0.1 K/uL (0.00-0.22); BASOPHILS % (AUTO) 1.2 % (0.0-2.0); EOSINOPHILS # (AUTO) 0.1 K/uL (0-0.4); EOSINOPHILS % (AUTO) 1.2 % (0.0-4.0); HEMATOCRIT 36.8 % (36-48); HEMOGLOBIN 12.1 g/dL (12.0-16.0); LYMPHOCYTES % (AUTO) 35.5 % (20.5-51.1); MEAN CORPUSCULAR HEMOGLOBIN 29 pg (27-31); MEAN CORPUSCULAR HGB CONC 33 g/dL (33-37); MEAN CORPUSCULAR VOLUME 88.8 fL (80-94); MONOCYTES # (AUTO) 0.6 K/uL (0.8-1.0); MONOCYTES % (AUTO) 10.8 % (1.7-9.3); NEUTROPHILS # (AUTO) 2.9 K/uL (1.8-7.7); NEUTROPHILS % (AUTO) 51.3 % (42.2-75.2); PLATELET COUNT (AUTO) 224 K/uL (140-450); RED BLOOD CELL COUNT(AUTO) 4.15 MIL/uL (4.20-5.40); RED CELL DISTRIBUTION WIDTH 14.3 % (11.6-13.7); WHITE BLOOD COUNT (AUTO) 5.7 K/uL (4.8-10.8)
[2023-01-26 19:11] LABS: ALBUMIN 3.2 g/dL (3.4-5.0); ANION GAP 12.5 (8-16); CALCIUM 8.2 mg/dL (8.5-10.1); CARBON DIOXIDE 29.9 mmol/L (21-32); CREATININE 1.2 mg/dL (0.6-1.3); POTASSIUM 3.4 mmol/L (3.5-5.1); TOTAL BILIRUBIN 0.4 mg/dL (0.0-1.0)
[2023-01-26] MEDS ORDERED: MORPHINE SULFATE 4 MG/ML SYR ONE (19:37)
[2023-01-26] MEDS ORDERED: ACETAMINOPHEN 325 MG TAB PO PRN (23:45)
[2023-01-26] MEDS ORDERED: DOCUSATE SODIUM 100 MG GELCAP PO PRN (23:45)
[2023-01-26] MEDS ORDERED: POTASSIUM CHLORIDE 10 MEQ TABER PO PRN (23:45)
[2023-01-26] MEDS ORDERED: guaiFENesin DM 200/20 MG-10 ML 10 ML UDC PO PRN (23:45)
[2023-01-26] MEDS: NACL 0.9% 1,000 ML IV SCH (23:45)
[2023-01-26] MEDS ORDERED: ONDANSETRON 4 MG/2 ML VIAL IM/IVP PRN (23:45)
[2023-01-26] MEDS ORDERED: ZOLPIDEM 5 MG TAB PO PRN (23:45)
[2023-01-26] MEDS ORDERED: NITROGLYCERIN 0.4 MG TAB SL PRN (23:50)
[2023-01-27] VITALS (8 sets, daily range): BP systolic 91–128; BP diastolic 60–94; PULSE 62–88; RESP 18; TEMP 96.7–97.9; O2SAT 96–100
[2023-01-27 00:37] LABS: INR 0.97 (0.8-1.2); PARTIAL THROMBOPLASTIN TIME 27.9 secs (22-35.6); PROTHROMBIN TIME 10.2 secs (10.8-13.4)
[2023-01-27 00:39] LABS: CHOL/HDL RATIO 1.7 (1-4.5); FREE T4 (FREE THYROXINE) 1.05 ng/dL (0.76-1.46); MAGNESIUM 1.8 mg/dL (1.8-2.4); PHOSPHORUS 2.9 mg/dL (2.5-4.9); THYROID STIMULATING HORMONE 0.59 uIU/mL (0.34-3.74)
[2023-01-27] MEDS ORDERED: FUROSEMIDE 20 MG/2 ML VIAL IVP ONE (03:20)
[2023-01-27] MEDS: HYDROcodone/APAP 7.5/325 MG 1 TAB PO PRN ×3 (03:58→16:13)
[2023-01-27 04:51] LABS: AMPHETAMINE, URINE POSITIVE ng/ml (NEG <=1000); BARBITURATE, URINE NEGATIVE ng/ml (NEG <=200); BENZODIAZEPINE, URINE NEGATIVE ng/mL (NEG <=200); CANNABINOID, URINE POSITIVE ng/mL (NEG <=50); COCAINE, URINE NEGATIVE ng/mL (NEG <=300)
[2023-01-27 04:52] LABS: OPIATE, URINE POSITIVE ng/mL (NEG <=2000); PHENCYCLIDINE SCREEN,URINE NEGATIVE ng/mL (NEG <=25)
[2023-01-27 06:49] LABS: BASOPHILS % (AUTO) 0.8 % (0.0-2.0); EOSINOPHILS # (AUTO) 0.1 K/uL (0-0.4); EOSINOPHILS % (AUTO) 2.1 % (0.0-4.0); HEMATOCRIT 35.9 % (36-48); HEMOGLOBIN 11.7 g/dL (12.0-16.0); LYMPHOCYTES # (AUTO) 1.8 K/uL (2.5-16.5); LYMPHOCYTES % (AUTO) 38.2 % (20.5-51.1); MEAN CORPUSCULAR HEMOGLOBIN 29 pg (27-31); MEAN CORPUSCULAR HGB CONC 33 g/dL (33-37); MEAN CORPUSCULAR VOLUME 88.6 fL (80-94); MONOCYTES # (AUTO) 0.6 K/uL (0.8-1.0); MONOCYTES % (AUTO) 12.7 % (1.7-9.3); NEUTROPHILS # (AUTO) 2.2 K/uL (1.8-7.7); NEUTROPHILS % (AUTO) 46.2 % (42.2-75.2); PLATELET COUNT (AUTO) 210 K/uL (140-450); RED BLOOD CELL COUNT(AUTO) 4.05 MIL/uL (4.20-5.40); RED CELL DISTRIBUTION WIDTH 14.5 % (11.6-13.7); WHITE BLOOD COUNT (AUTO) 4.7 K/uL (4.8-10.8)
[2023-01-27 06:59] LABS: ANION GAP 10.6 (8-16); CALCIUM 8.1 mg/dL (8.5-10.1); CREATININE 1.1 mg/dL (0.6-1.3); POTASSIUM 3.6 mmol/L (3.5-5.1)
[2023-01-27] MEDS: PANTOPRAZOLE 40 MG TABEC PO SCH (08:38)
[2023-01-27] MEDS: carvediloL 6.25 MG TAB PO SCH (08:38)
[2023-01-27] MEDS: FUROSEMIDE 40 MG TAB PO SCH (08:39)
[2023-01-27] MEDS: SPIRONOLACTONE 50 MG TAB PO SCH (08:39)
[2023-01-27] MEDS: ATORVASTATIN 20 MG TAB PO SCH (08:39)
[2023-01-27 12:09] LABS: APPEARANCE,URINE CLEAR (CLEAR); BILIRUBIN,URINE NEGATIVE (NEGATIVE); BLOOD, URINE 1+ (NEGATIVE); COLOR,URINE YELLOW (YELLOW); LEUKOCYTE ESTERASE ,URINE NEGATIVE (NEGATIVE); NITRITE, URINE NEGATIVE (NEGATIVE); PH,URINE 6.5 (5.0-9.0); PROTEIN,URINE TRACE (NEGATIVE); UGLUCOSE NEGATIVE (NEGATIVE); UROBILINOGEN,URINE 0.2 EU/dL (0.2 - 1)
[2023-01-27 12:30] LABS: BACTERIA,URINE FEW /HPF (None Seen); SQUAMOUS EPITHELIAL CELL,UR 4-10 (MOD) /LPF (0-3 (FEW)); WBC,URINE 0-5 /HPF (0-5)
[2023-01-27] MEDS ORDERED: LOVENOX 1MG/KG Q12H SUBQ SCH (15:40)
[2023-01-27] MEDS: NACL 0.9% 1,000 ML IV SCH (16:14)
[2023-01-27] MEDS ORDERED: ENOXAPARIN 80 MG/0.8 ML SYR SUBQ SCH (17:00)
[2023-01-27] MEDS: MORPHINE SULFATE 2 MG/ML SYR IVP PRN (22:11)
[2023-01-28] VITALS (13 sets, daily range): BP systolic 121–136; BP diastolic 69–97; PULSE 68–104; RESP 17–18; TEMP 96.9–97.8; O2SAT 99–100
[2023-01-28] MEDS: MORPHINE SULFATE 2 MG/ML SYR IVP PRN ×3 (05:41→22:33)
[2023-01-28] MEDS: ENOXAPARIN 80 MG/0.8 ML SYR SUBQ SCH ×2 (05:44→17:12)
[2023-01-28] MEDS ORDERED: ENOXAPARIN 80 MG/0.8 ML SYR SUBQ SCH (06:00)
[2023-01-28 06:37] LABS: BASOPHILS % (AUTO) 0.8 % (0.0-2.0); EOSINOPHILS # (AUTO) 0.1 K/uL (0-0.4); EOSINOPHILS % (AUTO) 2.1 % (0.0-4.0); HEMATOCRIT 33.4 % (36-48); HEMOGLOBIN 10.9 g/dL (12.0-16.0); LYMPHOCYTES # (AUTO) 1.4 K/uL (2.5-16.5); LYMPHOCYTES % (AUTO) 27.9 % (20.5-51.1); MEAN CORPUSCULAR HEMOGLOBIN 29 pg (27-31); MEAN CORPUSCULAR HGB CONC 33 g/dL (33-37); MEAN CORPUSCULAR VOLUME 88.6 fL (80-94); MONOCYTES # (AUTO) 0.7 K/uL (0.8-1.0); MONOCYTES % (AUTO) 13.6 % (1.7-9.3); NEUTROPHILS # (AUTO) 2.7 K/uL (1.8-7.7); NEUTROPHILS % (AUTO) 55.6 % (42.2-75.2); PLATELET COUNT (AUTO) 184 K/uL (140-450); RED BLOOD CELL COUNT(AUTO) 3.77 MIL/uL (4.20-5.40); RED CELL DISTRIBUTION WIDTH 14.4 % (11.6-13.7); WHITE BLOOD COUNT (AUTO) 4.9 K/uL (4.8-10.8)
[2023-01-28 07:03] LABS: ANION GAP 11.7 (8-16); CALCIUM 7.9 mg/dL (8.5-10.1); CARBON DIOXIDE 25.1 mmol/L (21-32); POTASSIUM 3.8 mmol/L (3.5-5.1)
[2023-01-28] MEDS: PANTOPRAZOLE 40 MG TABEC PO SCH (08:05)
[2023-01-28] MEDS: ATORVASTATIN 20 MG TAB PO SCH (08:06)
[2023-01-28] MEDS: carvediloL 6.25 MG TAB PO SCH (08:06)
[2023-01-28] MEDS: FUROSEMIDE 40 MG TAB PO SCH (08:06)
[2023-01-28] MEDS: SPIRONOLACTONE 50 MG TAB PO SCH (08:06)
[2023-01-28] MEDS: LORazepam 2 MG/ML VIAL IVP PRN ×2 (08:07→18:12)
[2023-01-28] MEDS: NACL 0.9% 1,000 ML IV SCH (08:07)
[2023-01-29] VITALS: BP 125/73; PULSE 85; PULSE 87; RESP 18; TEMP 97.5; O2SAT 98
[2023-01-29] MEDS: NACL 0.9% 1,000 ML IV SCH (01:45)
[2023-01-29 04:00] VITALS: BP 125/73; PULSE 88; PULSE 90; RESP 16; TEMP 97.6; O2SAT 98
[2023-01-29] MEDS: LORazepam 2 MG/ML VIAL IVP PRN (04:54)
[2023-01-29] MEDS: ENOXAPARIN 80 MG/0.8 ML SYR SUBQ SCH (06:00)
[2023-01-29] MEDS: HYDROcodone/APAP 7.5/325 MG 1 TAB PO PRN (06:30)
[2023-01-29 07:27] LABS: BASOPHILS % (AUTO) 0.4 % (0.0-2.0); EOSINOPHILS # (AUTO) 0.1 K/uL (0-0.4); EOSINOPHILS % (AUTO) 1.7 % (0.0-4.0); HEMATOCRIT 34.6 % (36-48); HEMOGLOBIN 11.5 g/dL (12.0-16.0); LYMPHOCYTES # (AUTO) 1.7 K/uL (2.5-16.5); LYMPHOCYTES % (AUTO) 22.7 % (20.5-51.1); MEAN CORPUSCULAR HEMOGLOBIN 29 pg (27-31); MEAN CORPUSCULAR HGB CONC 33 g/dL (33-37); MEAN CORPUSCULAR VOLUME 88.1 fL (80-94); MONOCYTES # (AUTO) 1.3 K/uL (0.8-1.0); MONOCYTES % (AUTO) 17.4 % (1.7-9.3); NEUTROPHILS # (AUTO) 4.2 K/uL (1.8-7.7); NEUTROPHILS % (AUTO) 57.8 % (42.2-75.2); PLATELET COUNT (AUTO) 195 K/uL (140-450); RED BLOOD CELL COUNT(AUTO) 3.93 MIL/uL (4.20-5.40); WHITE BLOOD COUNT (AUTO) 7.3 K/uL (4.8-10.8)
[2023-01-29 07:28] LABS: ANION GAP 11.4 (8-16); CALCIUM 8.3 mg/dL (8.5-10.1); CARBON DIOXIDE 27.3 mmol/L (21-32); CREATININE 0.9 mg/dL (0.6-1.3); POTASSIUM 3.7 mmol/L (3.5-5.1)
[2023-01-29 15:17] LABS: HEMOGLOBIN A1C 6.2 % (4.8-5.6)
== END 2023-01-29 11:02 | disposition short-term general hospital (02) | DRG 190 ==
LOC: MED 16:50 → MTU 23:20 → MED 23:25 → MTU 01-27 07:48
PROVIDERS: ADMIT Family Medicine; ATTEND Family Medicine
DX: I21.4 Non-ST elevation (NSTEMI) myocardial infarction (principal); I50.23 Acute on chronic systolic (congestive) heart failure; I11.0 Hypertensive heart disease with heart failure; D63.8 Anemia in other chronic diseases classified elsewhere; E78.5 Hyperlipidemia, unspecified; Z20.822 Contact with and (suspected) exposure to COVID-19; F41.9 Anxiety disorder, unspecified; F15.10 Other stimulant abuse, uncomplicated; K21.9 Gastro-esophageal reflux disease without esophagitis; I25.10 Atherosclerotic heart disease of native coronary artery without angina pectoris; J44.9 Chronic obstructive pulmonary disease, unspecified; Z91.148 Patient's other noncompliance with medication regimen for other reason; Z85.038 Personal history of other malignant neoplasm of large intestine; Z86.73 Personal history of transient ischemic attack (TIA), and cerebral infarction without residual deficits; Z88.0 Allergy status to penicillin; Z88.8 Allergy status to other drugs, medicaments and biological substances; Z79.899 Other long term (current) drug therapy; Z79.82 Long term (current) use of aspirin; Z82.49 Family history of ischemic heart disease and other diseases of the circulatory system; Z82.3 Family history of stroke
CPT/HCPCS: 36415; 71045; 71275; 80048; 80053; 80305; 81001; 82150; 83036; 83690; 83735; 83880; 84100; 84436; 84439; 84443; 84479; 84484; 85025; 85379; 85610; 85730; 87081; 93005; 96374; 96375; 99285; J1644; J1650; J1940; J2060; J2270; Q0092; Q9967

== ENCOUNTER 2023-02-04 06:30 | Inpatient (IN) | payer MEDICAID ==
[~2023-02-04] VITALS: Ht 157.5 cm; Wt 78.9 kg
[2023-02-04 06:30] VITALS: BP 118/87; PULSE 91; RESP 16; TEMP 98.5; O2SAT 98
[2023-02-04] MEDS ORDERED: FUROSEMIDE 100 MG/10 ML VIAL IVP ONE (07:45)
[2023-02-04 08:01] LABS: BASOPHILS # (AUTO) 0.1 K/uL (0.00-0.22); BASOPHILS % (AUTO) 1.1 % (0.0-2.0); EOSINOPHILS # (AUTO) 0.1 K/uL (0-0.4); HEMATOCRIT 33.5 % (36-48); HEMOGLOBIN 10.9 g/dL (12.0-16.0); LYMPHOCYTES # (AUTO) 1.7 K/uL (2.5-16.5); LYMPHOCYTES % (AUTO) 30.5 % (20.5-51.1); MEAN CORPUSCULAR HEMOGLOBIN 29 pg (27-31); MEAN CORPUSCULAR HGB CONC 33 g/dL (33-37); MEAN CORPUSCULAR VOLUME 87.9 fL (80-94); MONOCYTES # (AUTO) 0.7 K/uL (0.8-1.0); MONOCYTES % (AUTO) 12.9 % (1.7-9.3); NEUTROPHILS # (AUTO) 2.9 K/uL (1.8-7.7); NEUTROPHILS % (AUTO) 53.5 % (42.2-75.2); PLATELET COUNT (AUTO) 218 K/uL (140-450); RED BLOOD CELL COUNT(AUTO) 3.81 MIL/uL (4.20-5.40); RED CELL DISTRIBUTION WIDTH 14.2 % (11.6-13.7); WHITE BLOOD COUNT (AUTO) 5.4 K/uL (4.8-10.8)
[2023-02-04 08:24] LABS: ALBUMIN 3.1 g/dL (3.4-5.0); ANION GAP 11.9 (8-16); CALCIUM 8.8 mg/dL (8.5-10.1); CARBON DIOXIDE 26.6 mmol/L (21-32); CREATININE 1.2 mg/dL (0.6-1.3); POTASSIUM 3.5 mmol/L (3.5-5.1); TOTAL BILIRUBIN 0.4 mg/dL (0.0-1.0); TOTAL PROTEIN, SERUM 7.1 g/dL (6.4-8.2)
[2023-02-04] MEDS ORDERED: KETOROLAC 30 MG/ML VIAL IVP ONE (10:40)
[2023-02-04 10:50] LABS: AMPHETAMINE, URINE POSITIVE ng/ml (NEG <=1000); BARBITURATE, URINE NEGATIVE ng/ml (NEG <=200); BENZODIAZEPINE, URINE NEGATIVE ng/mL (NEG <=200); CANNABINOID, URINE POSITIVE ng/mL (NEG <=50); COCAINE, URINE NEGATIVE ng/mL (NEG <=300); OPIATE, URINE NEGATIVE ng/mL (NEG <=2000); PHENCYCLIDINE SCREEN,URINE NEGATIVE ng/mL (NEG <=25)
[2023-02-04] MEDS ORDERED: NITROGLYCERIN 0.4 MG TAB SL PRN (12:55)
[2023-02-04] MEDS ORDERED: ACETAMINOPHEN 325 MG TAB PO PRN (12:55)
[2023-02-04] MEDS ORDERED: MAG SULF 2000 MG/WATER PREMIX 50 ML IV PRN (12:55)
[2023-02-04] MEDS ORDERED: ONDANSETRON 4 MG/2 ML VIAL IVP PRN (12:55)
[2023-02-04 13:22] LABS: BASOPHILS # (AUTO) 0.1 K/uL (0.00-0.22); BASOPHILS % (AUTO) 1.1 % (0.0-2.0); EOSINOPHILS # (AUTO) 0.1 K/uL (0-0.4); EOSINOPHILS % (AUTO) 1.8 % (0.0-4.0); HEMATOCRIT 35.2 % (36-48); HEMOGLOBIN 11.4 g/dL (12.0-16.0); LYMPHOCYTES # (AUTO) 1.9 K/uL (2.5-16.5); LYMPHOCYTES % (AUTO) 34.4 % (20.5-51.1); MEAN CORPUSCULAR HEMOGLOBIN 29 pg (27-31); MEAN CORPUSCULAR HGB CONC 33 g/dL (33-37); MEAN CORPUSCULAR VOLUME 88.1 fL (80-94); MONOCYTES # (AUTO) 0.8 K/uL (0.8-1.0); MONOCYTES % (AUTO) 13.9 % (1.7-9.3); NEUTROPHILS # (AUTO) 2.7 K/uL (1.8-7.7); NEUTROPHILS % (AUTO) 48.8 % (42.2-75.2); PLATELET COUNT (AUTO) 225 K/uL (140-450); RED CELL DISTRIBUTION WIDTH 14.1 % (11.6-13.7); WHITE BLOOD COUNT (AUTO) 5.5 K/uL (4.8-10.8)
[2023-02-04 13:31] LABS: ANION GAP 8.6 (8-16); CARBON DIOXIDE 29.6 mmol/L (21-32); CREATININE 1.3 mg/dL (0.6-1.3); POTASSIUM 3.2 mmol/L (3.5-5.1)
[2023-02-04 13:36] LABS: INR 1.03 (0.8-1.2); PARTIAL THROMBOPLASTIN TIME 27.6 secs (22-35.6); PROTHROMBIN TIME 10.8 secs (10.8-13.4)
[2023-02-04 13:38] LABS: LACTIC ACID 1.5 mmol/L (0.4-2.0)
[2023-02-04 13:44] LABS: CHOL/HDL RATIO 1.9 (1-4.5); FREE T4 (FREE THYROXINE) 1.01 ng/dL (0.76-1.46); MAGNESIUM 1.8 mg/dL (1.8-2.4); PHOSPHORUS 4.1 mg/dL (2.5-4.9); THYROID STIMULATING HORMONE 0.64 uIU/mL (0.34-3.74)
[2023-02-04] MEDS: ALPRAZolam 0.25 MG TAB PO PRN (14:20)
[2023-02-04 16:25] VITALS: PULSE 90; O2SAT 100
[2023-02-04] MEDS ORDERED: IBUPROFEN 400 MG TAB PO PRN (18:10)
[2023-02-04] MEDS ORDERED: IBUPROFEN 600 MG TAB PO PRN (18:30)
[2023-02-04 19:10] LABS: APPEARANCE,URINE CLEAR (CLEAR); BILIRUBIN,URINE NEGATIVE (NEGATIVE); BLOOD, URINE TRACE-I (NEGATIVE); COLOR,URINE YELLOW (YELLOW); LEUKOCYTE ESTERASE ,URINE NEGATIVE (NEGATIVE); NITRITE, URINE NEGATIVE (NEGATIVE); PH,URINE 6.5 (5.0-9.0); PROTEIN,URINE NEGATIVE (NEGATIVE); UGLUCOSE NEGATIVE (NEGATIVE); UROBILINOGEN,URINE 0.2 EU/dL (0.2 - 1)
[2023-02-04 19:39] LABS: BACTERIA,URINE FEW /HPF (None Seen); RBC,URINE 0-5 /HPF (0-5); SQUAMOUS EPITHELIAL CELL,UR 0-3 (FEW) /LPF (0-3 (FEW)); WBC,URINE 0-5 /HPF (0-5)
[2023-02-04 20:00] VITALS: BP 134/87; PULSE 86; PULSE 90; PULSE 96; RESP 18; RESP 20; TEMP 98.5; O2SAT 99
[2023-02-04] MEDS: DOCUSATE SODIUM 100 MG GELCAP PO SCH (20:38)
[2023-02-04] MEDS: carvediloL 6.25 MG TAB PO SCH (20:38)
[2023-02-04] MEDS: POTASSIUM CHLORIDE 10 MEQ TABER PO PRN (20:39)
[2023-02-04] MEDS: FUROSEMIDE 40 MG/4 ML VIAL IVP SCH (20:43)
[2023-02-05] VITALS (9 sets, daily range): BP systolic 87–139; BP diastolic 56–85; PULSE 18–95; RESP 18–19; TEMP 96.8–98.8; O2SAT 96–100
[2023-02-05] MEDS: ALPRAZolam 0.25 MG TAB PO PRN (04:20)
[2023-02-05] MEDS: FUROSEMIDE 40 MG/4 ML VIAL IVP SCH ×2 (04:20→13:00)
[2023-02-05 05:17] LABS: BASOPHILS % (AUTO) 0.9 % (0.0-2.0); EOSINOPHILS # (AUTO) 0.1 K/uL (0-0.4); EOSINOPHILS % (AUTO) 3.1 % (0.0-4.0); HEMATOCRIT 35.8 % (36-48); HEMOGLOBIN 11.8 g/dL (12.0-16.0); LYMPHOCYTES # (AUTO) 1.6 K/uL (2.5-16.5); MEAN CORPUSCULAR HEMOGLOBIN 29 pg (27-31); MEAN CORPUSCULAR HGB CONC 33 g/dL (33-37); MEAN CORPUSCULAR VOLUME 88.1 fL (80-94); MONOCYTES # (AUTO) 0.9 K/uL (0.8-1.0); MONOCYTES % (AUTO) 18.8 % (1.7-9.3); NEUTROPHILS # (AUTO) 1.9 K/uL (1.8-7.7); NEUTROPHILS % (AUTO) 42.2 % (42.2-75.2); PLATELET COUNT (AUTO) 240 K/uL (140-450); RED BLOOD CELL COUNT(AUTO) 4.07 MIL/uL (4.20-5.40); RED CELL DISTRIBUTION WIDTH 14.1 % (11.6-13.7); WHITE BLOOD COUNT (AUTO) 4.6 K/uL (4.8-10.8)
[2023-02-05 05:47] LABS: PHOSPHORUS 5.2 mg/dL (2.5-4.9)
[2023-02-05 05:48] LABS: ANION GAP 11.3 (8-16); CALCIUM 8.8 mg/dL (8.5-10.1); CARBON DIOXIDE 27.3 mmol/L (21-32); CREATININE 1.3 mg/dL (0.6-1.3); POTASSIUM 3.6 mmol/L (3.5-5.1)
[2023-02-05] MEDS: PANTOPRAZOLE 40 MG TABEC PO SCH (08:46)
[2023-02-05] MEDS: DOCUSATE SODIUM 100 MG GELCAP PO SCH ×2 (08:46→20:23)
[2023-02-05] MEDS: ECOTRIN 81 MG TABEC PO SCH (08:46)
[2023-02-05] MEDS: carvediloL 6.25 MG TAB PO SCH (08:46)
[2023-02-05] MEDS: LOSARTAN 25 MG TAB PO SCH (08:47)
[2023-02-05] MEDS: ATORVASTATIN 20 MG TAB PO SCH (08:47)
[2023-02-05] MEDS ORDERED: carvediloL 6.25 MG TAB PO SCH (09:00)
[2023-02-05] MEDS ORDERED: SPIRONOLACTONE 50 MG TAB PO SCH (09:00)
[2023-02-05] MEDS ORDERED: PANTOPRAZOLE 40 MG INJ VIAL IVP SCH (09:00)
[2023-02-05] MEDS: HYDROcodone/APAP 5/325 MG 1 TAB TAB PO PRN ×2 (09:39→20:24)
[2023-02-05] MEDS ORDERED: NACL 0.9% 1,000 ML IV SCH (13:25)
[2023-02-05] MEDS: carvediloL 3.125 MG TAB PO SCH (20:49)
[2023-02-05] MEDS: ALPRAZolam 0.5 MG TAB PO PRN (21:47)
[2023-02-06] VITALS: BP 94/57; PULSE 69; PULSE 88; RESP 18; TEMP 96.5; O2SAT 99
[2023-02-06 04:00] VITALS: BP 93/58; PULSE 75; PULSE 83; RESP 18; TEMP 96.1; O2SAT 96
[2023-02-06 05:28] LABS: BASOPHILS # (AUTO) 0.1 K/uL (0.00-0.22); BASOPHILS % (AUTO) 0.9 % (0.0-2.0); EOSINOPHILS # (AUTO) 0.1 K/uL (0-0.4); EOSINOPHILS % (AUTO) 2.1 % (0.0-4.0); HEMOGLOBIN 11.7 g/dL (12.0-16.0); LYMPHOCYTES # (AUTO) 2.2 K/uL (2.5-16.5); LYMPHOCYTES % (AUTO) 40.9 % (20.5-51.1); MEAN CORPUSCULAR HEMOGLOBIN 29 pg (27-31); MEAN CORPUSCULAR HGB CONC 32 g/dL (33-37); MEAN CORPUSCULAR VOLUME 88.2 fL (80-94); MONOCYTES # (AUTO) 1.1 K/uL (0.8-1.0); MONOCYTES % (AUTO) 19.4 % (1.7-9.3); NEUTROPHILS % (AUTO) 36.7 % (42.2-75.2); PLATELET COUNT (AUTO) 259 K/uL (140-450); RED BLOOD CELL COUNT(AUTO) 4.08 MIL/uL (4.20-5.40); RED CELL DISTRIBUTION WIDTH 14.2 % (11.6-13.7); WHITE BLOOD COUNT (AUTO) 5.4 K/uL (4.8-10.8)
[2023-02-06 05:35] LABS: ANION GAP 9.8 (8-16); CARBON DIOXIDE 29.6 mmol/L (21-32); CREATININE 1.3 mg/dL (0.6-1.3); POTASSIUM 3.4 mmol/L (3.5-5.1)
[2023-02-06 05:39] LABS: MAGNESIUM 1.8 mg/dL (1.8-2.4); PHOSPHORUS 4.5 mg/dL (2.5-4.9)
[2023-02-06 08:00] VITALS: BP 111/72; PULSE 86; PULSE 92; RESP 18; TEMP 97; O2SAT 92
[2023-02-06] MEDS: HYDROcodone/APAP 5/325 MG 1 TAB TAB PO PRN ×3 (08:11→20:40)
[2023-02-06] MEDS: ALPRAZolam 0.5 MG TAB PO PRN ×2 (08:14→16:42)
[2023-02-06] MEDS: DOCUSATE SODIUM 100 MG GELCAP PO SCH ×2 (10:17→20:40)
[2023-02-06] MEDS: ATORVASTATIN 20 MG TAB PO SCH (10:17)
[2023-02-06] MEDS: POTASSIUM CHLORIDE 10 MEQ TABER PO PRN (10:17)
[2023-02-06] MEDS: PANTOPRAZOLE 40 MG TABEC PO SCH (10:17)
[2023-02-06] MEDS: SPIRONOLACTONE 50 MG TAB PO SCH (10:17)
[2023-02-06] MEDS: ECOTRIN 81 MG TABEC PO SCH (10:17)
[2023-02-06] MEDS: LOSARTAN 25 MG TAB PO SCH (10:18)
[2023-02-06] MEDS: carvediloL 3.125 MG TAB PO SCH ×2 (10:18→20:40)
[2023-02-06] MEDS: FUROSEMIDE 40 MG/4 ML VIAL IVP SCH ×2 (10:19→16:41)
[2023-02-06 12:00] VITALS: BP 91/45; PULSE 76; PULSE 88; RESP 18; TEMP 97; O2SAT 92
[2023-02-06 16:00] VITALS: BP 86/58; PULSE 85; PULSE 91; RESP 18; TEMP 97.5; O2SAT 93
[2023-02-06 20:00] VITALS: BP 105/72; PULSE 83; PULSE 84; RESP 18; TEMP 96.6; O2SAT 95
[2023-02-07] VITALS (7 sets, daily range): BP systolic 96–101; BP diastolic 58–70; PULSE 81–93; RESP 18; TEMP 98; O2SAT 98–100
[2023-02-07] MEDS: HYDROcodone/APAP 5/325 MG 1 TAB TAB PO PRN ×2 (04:52→09:39)
[2023-02-07 04:53] LABS: BASOPHILS % (AUTO) 0.8 % (0.0-2.0); EOSINOPHILS # (AUTO) 0.1 K/uL (0-0.4); EOSINOPHILS % (AUTO) 3.1 % (0.0-4.0); HEMATOCRIT 35.6 % (36-48); HEMOGLOBIN 11.6 g/dL (12.0-16.0); LYMPHOCYTES % (AUTO) 42.6 % (20.5-51.1); MEAN CORPUSCULAR HEMOGLOBIN 29 pg (27-31); MEAN CORPUSCULAR HGB CONC 33 g/dL (33-37); MEAN CORPUSCULAR VOLUME 88.6 fL (80-94); MONOCYTES # (AUTO) 0.8 K/uL (0.8-1.0); MONOCYTES % (AUTO) 17.1 % (1.7-9.3); NEUTROPHILS # (AUTO) 1.7 K/uL (1.8-7.7); NEUTROPHILS % (AUTO) 36.4 % (42.2-75.2); PLATELET COUNT (AUTO) 275 K/uL (140-450); RED BLOOD CELL COUNT(AUTO) 4.02 MIL/uL (4.20-5.40); RED CELL DISTRIBUTION WIDTH 14.2 % (11.6-13.7); WHITE BLOOD COUNT (AUTO) 4.8 K/uL (4.8-10.8)
[2023-02-07 05:08] LABS: ANION GAP 8.9 (8-16); CALCIUM 8.5 mg/dL (8.5-10.1); CARBON DIOXIDE 29.1 mmol/L (21-32); CREATININE 1.3 mg/dL (0.6-1.3)
[2023-02-07 05:13] LABS: MAGNESIUM 1.8 mg/dL (1.8-2.4)
[2023-02-07] MEDS ORDERED: guaiFENesin DM 200/20 MG-10 ML 10 ML UDC PO PRN (08:40)
[2023-02-07] MEDS: SPIRONOLACTONE 50 MG TAB PO SCH (09:00)
[2023-02-07] MEDS: FUROSEMIDE 40 MG/4 ML VIAL IVP SCH (09:00)
[2023-02-07] MEDS: ECOTRIN 81 MG TABEC PO SCH (09:21)
[2023-02-07] MEDS: carvediloL 3.125 MG TAB PO SCH (09:21)
[2023-02-07] MEDS: DOCUSATE SODIUM 100 MG GELCAP PO SCH (09:21)
[2023-02-07] MEDS: ALPRAZolam 0.5 MG TAB PO PRN (09:25)
[2023-02-07] MEDS: LOSARTAN 25 MG TAB PO SCH (09:26)
[2023-02-07] MEDS: PANTOPRAZOLE 40 MG TABEC PO SCH (09:26)
[2023-02-07] MEDS: ATORVASTATIN 20 MG TAB PO SCH (09:26)
[2023-02-07] MEDS ORDERED: CARV3.12 PO (09:57)
[2023-02-07] MEDS ORDERED: LOSA25TA1 PO (09:59)
== END 2023-02-07 14:30 | disposition home or self-care (01) | DRG 194 ==
LOC: MED 06:30 → OBSVTOIN 11:55 → MTU 11:55
DX: I11.0 Hypertensive heart disease with heart failure (principal); R57.0 Cardiogenic shock; I42.9 Cardiomyopathy, unspecified; I50.43 Acute on chronic combined systolic (congestive) and diastolic (congestive) heart failure; E44.1 Mild protein-calorie malnutrition; D63.8 Anemia in other chronic diseases classified elsewhere; F15.10 Other stimulant abuse, uncomplicated; E66.9 Obesity, unspecified; F41.9 Anxiety disorder, unspecified; I25.10 Atherosclerotic heart disease of native coronary artery without angina pectoris; J44.9 Chronic obstructive pulmonary disease, unspecified; E78.5 Hyperlipidemia, unspecified; K21.9 Gastro-esophageal reflux disease without esophagitis; F17.210 Nicotine dependence, cigarettes, uncomplicated; F12.90 Cannabis use, unspecified, uncomplicated; Z91.148 Patient's other noncompliance with medication regimen for other reason; Z68.31 Body mass index [BMI] 31.0-31.9, adult; Z88.0 Allergy status to penicillin; Z88.8 Allergy status to other drugs, medicaments and biological substances; Z79.899 Other long term (current) drug therapy; Z79.82 Long term (current) use of aspirin; Z86.73 Personal history of transient ischemic attack (TIA), and cerebral infarction without residual deficits; Z82.49 Family history of ischemic heart disease and other diseases of the circulatory system; Z82.3 Family history of stroke; Z71.51 Drug abuse counseling and surveillance of drug abuser; Z71.6 Tobacco abuse counseling
CPT/HCPCS: 36415; 71045; 80048; 80053; 80305; 81001; 82150; 83036; 83605; 83690; 83735; 83880; 84100; 84439; 84443; 84484; 85025; 85610; 85730; 87081; 96374; 99285; J1644; J1940

== ENCOUNTER 2023-02-16 10:23 | Inpatient (IN) | payer MEDICAID ==
[~2023-02-16] VITALS: Ht 162.6 cm; Wt 72.6 kg
[~2023-02-16 10:23] MED LIST changes: +CARV3.12 PO; -CARV6.25 PO; +LOSA-269 PO; -SPIR50TA PO
[2023-02-16 10:26] VITALS: BP 138/92; PULSE 93; RESP 20; TEMP 98; O2SAT 100
[2023-02-16 11:10] LABS: BASOPHILS % (AUTO) 0.8 % (0.0-2.0); EOSINOPHILS # (AUTO) 0.1 K/uL (0-0.4); EOSINOPHILS % (AUTO) 2.6 % (0.0-4.0); HEMATOCRIT 34.1 % (36-48); HEMOGLOBIN 11.2 g/dL (12.0-16.0); LYMPHOCYTES % (AUTO) 41.9 % (20.5-51.1); MEAN CORPUSCULAR HEMOGLOBIN 29 pg (27-31); MEAN CORPUSCULAR HGB CONC 33 g/dL (33-37); MONOCYTES # (AUTO) 0.6 K/uL (0.8-1.0); MONOCYTES % (AUTO) 12.3 % (1.7-9.3); NEUTROPHILS # (AUTO) 2.1 K/uL (1.8-7.7); NEUTROPHILS % (AUTO) 42.4 % (42.2-75.2); PLATELET COUNT (AUTO) 238 K/uL (140-450); RED BLOOD CELL COUNT(AUTO) 3.87 MIL/uL (4.20-5.40); RED CELL DISTRIBUTION WIDTH 14.2 % (11.6-13.7); WHITE BLOOD COUNT (AUTO) 4.9 K/uL (4.8-10.8)
[2023-02-16 11:33] LABS: ALBUMIN 3.2 g/dL (3.4-5.0); ANION GAP 12.5 (8-16); CALCIUM 8.4 mg/dL (8.5-10.1); CARBON DIOXIDE 24.5 mmol/L (21-32); CREATININE 1.2 mg/dL (0.6-1.3); TOTAL BILIRUBIN 0.2 mg/dL (0.0-1.0); TOTAL PROTEIN, SERUM 6.9 g/dL (6.4-8.2)
[2023-02-16] MEDS ORDERED: ASPIRIN 325 MG TAB PO ONE (11:35)
[2023-02-16] MEDS ORDERED: NITROGLYCERIN 0.4 MG TAB SL ONE ×2 (11:35→14:05)
[2023-02-16] MEDS ORDERED: FUROSEMIDE 40 MG/4 ML VIAL IVP ONE ×2 (11:35→14:05)
[2023-02-16 11:58] LABS: INR 0.96 (0.8-1.2); PARTIAL THROMBOPLASTIN TIME 25.6 secs (22-35.6); PROTHROMBIN TIME 10.1 secs (10.8-13.4)
[2023-02-16] MEDS ORDERED: LOVENOX 1MG/KG Q24H SUBQ SCH (14:05)
[2023-02-16] MEDS ORDERED: ENOXAPARIN 80 MG/0.8 ML SYR SUBQ SCH (14:24)
[2023-02-16] MEDS ORDERED: MORPHINE SULFATE 4 MG/ML SYR IVP ONE (14:25)
[2023-02-16 18:35] VITALS: PULSE 75; PULSE 78; RESP 16; O2SAT 100
[2023-02-16 18:53] VITALS: PULSE 78
[2023-02-16 20:00] VITALS: BP 123/84; PULSE 71; PULSE 75; RESP 16; TEMP 97.1; O2SAT 100
[2023-02-16] MEDS: METOPROLOL 25 MG TAB PO SCH (21:02)
[2023-02-16] MEDS ORDERED: LORazepam 1 MG TAB PO ONE (21:35)
[2023-02-16 22:08] VITALS: PULSE 76
[2023-02-17] VITALS: BP 58/84; PULSE 75; PULSE 84; RESP 20; TEMP 98.8; O2SAT 100
[2023-02-17 04:00] VITALS: BP 110/55; PULSE 71; PULSE 89; RESP 20; TEMP 98; O2SAT 100
[2023-02-17 06:06] LABS: BASOPHILS # (AUTO) 0.1 K/uL (0.00-0.22); BASOPHILS % (AUTO) 1.3 % (0.0-2.0); EOSINOPHILS # (AUTO) 0.1 K/uL (0-0.4); EOSINOPHILS % (AUTO) 2.5 % (0.0-4.0); HEMATOCRIT 34.9 % (36-48); HEMOGLOBIN 11.6 g/dL (12.0-16.0); LYMPHOCYTES # (AUTO) 2.5 K/uL (2.5-16.5); LYMPHOCYTES % (AUTO) 45.1 % (20.5-51.1); MEAN CORPUSCULAR HEMOGLOBIN 29 pg (27-31); MEAN CORPUSCULAR HGB CONC 33 g/dL (33-37); MEAN CORPUSCULAR VOLUME 87.8 fL (80-94); MONOCYTES # (AUTO) 0.7 K/uL (0.8-1.0); MONOCYTES % (AUTO) 12.6 % (1.7-9.3); NEUTROPHILS # (AUTO) 2.2 K/uL (1.8-7.7); NEUTROPHILS % (AUTO) 38.5 % (42.2-75.2); PLATELET COUNT (AUTO) 234 K/uL (140-450); RED BLOOD CELL COUNT(AUTO) 3.98 MIL/uL (4.20-5.40); RED CELL DISTRIBUTION WIDTH 14.4 % (11.6-13.7); WHITE BLOOD COUNT (AUTO) 5.6 K/uL (4.8-10.8)
[2023-02-17 06:24] LABS: ANION GAP 14.7 (8-16); CALCIUM 8.8 mg/dL (8.5-10.1); CARBON DIOXIDE 24.7 mmol/L (21-32); CREATININE 1.3 mg/dL (0.6-1.3); POTASSIUM 3.4 mmol/L (3.5-5.1)
[2023-02-17 08:00] VITALS: BP 158/71; PULSE 72; PULSE 76; PULSE 93; RESP 16; RESP 20; TEMP 97.9; O2SAT 100
[2023-02-17] MEDS: METOPROLOL 25 MG TAB PO SCH ×2 (09:53→21:56)
[2023-02-17] MEDS ORDERED: MAG SULF 2000 MG/WATER PREMIX 50 ML IV PRN (10:00)
[2023-02-17 12:00] VITALS: BP 114/73; PULSE 67; PULSE 76; RESP 17; TEMP 97; O2SAT 100
[2023-02-17 16:00] VITALS: BP 106/72; PULSE 72; PULSE 73; RESP 17; TEMP 98; O2SAT 100
[2023-02-17] MEDS ORDERED: DOCUSATE SODIUM 100 MG GELCAP PO PRN (16:05)
[2023-02-17] MEDS ORDERED: ACETAMINOPHEN 325 MG TAB PO PRN (16:05)
[2023-02-17] MEDS ORDERED: POTASSIUM CHLORIDE 10 MEQ TABER PO PRN (16:05)
[2023-02-17] MEDS ORDERED: ZOLPIDEM 10 MG TAB PO PRN (16:05)
[2023-02-17] MEDS ORDERED: LORazepam 2 MG/ML VIAL IVP ONE (16:05)
[2023-02-17 20:00] VITALS: BP 121/65; PULSE 75; PULSE 83; RESP 17; RESP 18; TEMP 97.8; O2SAT 100; O2SAT 96
[2023-02-17] MEDS: LORazepam 2 MG/ML VIAL IVP PRN (20:58)
[2023-02-17] MEDS: carvediloL 3.125 MG TAB PO SCH (21:56)
[2023-02-18] VITALS: BP 104/72; PULSE 70; PULSE 72; RESP 16; TEMP 97.4; O2SAT 100
[2023-02-18 04:00] VITALS: BP 110/75; PULSE 77; PULSE 90; RESP 16; TEMP 98.1; O2SAT 98
[2023-02-18 05:30] LABS: BASOPHILS # (AUTO) 0.1 K/uL (0.00-0.22); BASOPHILS % (AUTO) 0.9 % (0.0-2.0); EOSINOPHILS # (AUTO) 0.2 K/uL (0-0.4); EOSINOPHILS % (AUTO) 2.9 % (0.0-4.0); HEMATOCRIT 33.6 % (36-48); HEMOGLOBIN 11.2 g/dL (12.0-16.0); LYMPHOCYTES # (AUTO) 2.9 K/uL (2.5-16.5); LYMPHOCYTES % (AUTO) 46.8 % (20.5-51.1); MEAN CORPUSCULAR HEMOGLOBIN 29 pg (27-31); MEAN CORPUSCULAR HGB CONC 33 g/dL (33-37); MEAN CORPUSCULAR VOLUME 87.5 fL (80-94); MONOCYTES # (AUTO) 0.9 K/uL (0.8-1.0); NEUTROPHILS # (AUTO) 2.2 K/uL (1.8-7.7); NEUTROPHILS % (AUTO) 35.4 % (42.2-75.2); PLATELET COUNT (AUTO) 213 K/uL (140-450); RED BLOOD CELL COUNT(AUTO) 3.84 MIL/uL (4.20-5.40); RED CELL DISTRIBUTION WIDTH 14.1 % (11.6-13.7); WHITE BLOOD COUNT (AUTO) 6.1 K/uL (4.8-10.8)
[2023-02-18 05:58] LABS: ANION GAP 13.3 (8-16); CALCIUM 8.6 mg/dL (8.5-10.1); CARBON DIOXIDE 26.3 mmol/L (21-32); CREATININE 1.2 mg/dL (0.6-1.3); POTASSIUM 3.6 mmol/L (3.5-5.1)
[2023-02-18 08:00] VITALS: BP 118/79; PULSE 85; PULSE 91; RESP 19; TEMP 96.4; O2SAT 98
[2023-02-18] MEDS ORDERED: FUROSEMIDE 40 MG TAB PO SCH (09:00)
[2023-02-18] MEDS: LOSARTAN 25 MG TAB PO SCH (09:47)
[2023-02-18] MEDS: METOPROLOL 25 MG TAB PO SCH (09:47)
[2023-02-18] MEDS: ECOTRIN 81 MG TABEC PO SCH (09:47)
[2023-02-18] MEDS: carvediloL 3.125 MG TAB PO SCH (09:48)
[2023-02-18] MEDS: PANTOPRAZOLE 40 MG TABEC PO SCH (09:48)
[2023-02-18] MEDS: ESCITALOPRAM 20 MG TAB PO SCH (09:49)
[2023-02-18] MEDS: LORazepam 2 MG/ML VIAL IVP PRN ×2 (10:00→19:40)
[2023-02-18] MEDS: HYDROcodone/APAP 5/325 MG 1 TAB TAB PO PRN (10:07)
[2023-02-18 12:00] VITALS: BP 116/73; PULSE 69; PULSE 89; RESP 19; TEMP 97.6; O2SAT 94
[2023-02-18] MEDS: FUROSEMIDE 40 MG/4 ML VIAL IVP SCH ×2 (15:25→20:13)
[2023-02-18 16:00] VITALS: BP 129/84; PULSE 77; RESP 16; TEMP 97; O2SAT 100
[2023-02-18] MEDS: guaiFENesin DM 200/20 MG-10 ML 10 ML UDC PO PRN (16:40)
[2023-02-18] MEDS ORDERED: ATORVASTATIN 20 MG TAB PO SCH (17:00)
[2023-02-18 20:00] VITALS: BP 108/78; PULSE 80; RESP 16; RESP 18; TEMP 97.7; O2SAT 96
[2023-02-18] MEDS: carvediloL 6.25 MG TAB PO SCH (20:13)
[2023-02-19] MEDS: MORPHINE SULFATE 2 MG/ML SYR IVP PRN ×2 (00:49→09:12)
[2023-02-19] MEDS: guaiFENesin DM 200/20 MG-10 ML 10 ML UDC PO PRN (00:55)
[2023-02-19 04:00] VITALS: BP 119/76; PULSE 84; RESP 18; TEMP 97.9; O2SAT 96
[2023-02-19] MEDS: FUROSEMIDE 40 MG/4 ML VIAL IVP SCH ×2 (05:01→12:54)
[2023-02-19 05:28] LABS: BASOPHILS # (AUTO) 0.1 K/uL (0.00-0.22); BASOPHILS % (AUTO) 1.3 % (0.0-2.0); EOSINOPHILS # (AUTO) 0.2 K/uL (0-0.4); EOSINOPHILS % (AUTO) 3.6 % (0.0-4.0); HEMATOCRIT 34.8 % (36-48); HEMOGLOBIN 11.3 g/dL (12.0-16.0); LYMPHOCYTES # (AUTO) 2.6 K/uL (2.5-16.5); MEAN CORPUSCULAR HEMOGLOBIN 29 pg (27-31); MEAN CORPUSCULAR HGB CONC 33 g/dL (33-37); MEAN CORPUSCULAR VOLUME 88.1 fL (80-94); MONOCYTES # (AUTO) 0.9 K/uL (0.8-1.0); MONOCYTES % (AUTO) 13.8 % (1.7-9.3); NEUTROPHILS # (AUTO) 2.9 K/uL (1.8-7.7); NEUTROPHILS % (AUTO) 42.3 % (42.2-75.2); PLATELET COUNT (AUTO) 226 K/uL (140-450); RED BLOOD CELL COUNT(AUTO) 3.95 MIL/uL (4.20-5.40); RED CELL DISTRIBUTION WIDTH 14.7 % (11.6-13.7); WHITE BLOOD COUNT (AUTO) 6.7 K/uL (4.8-10.8)
[2023-02-19 05:42] LABS: ANION GAP 12.4 (8-16); CALCIUM 8.7 mg/dL (8.5-10.1); CARBON DIOXIDE 27.1 mmol/L (21-32); CREATININE 1.3 mg/dL (0.6-1.3); POTASSIUM 3.5 mmol/L (3.5-5.1)
[2023-02-19] MEDS ORDERED: SPIRONOLACTONE 50 MG TAB PO SCH (09:00)
[2023-02-19] MEDS: LOSARTAN 25 MG TAB PO SCH (09:03)
[2023-02-19] MEDS: PANTOPRAZOLE 40 MG TABEC PO SCH (09:03)
[2023-02-19] MEDS: carvediloL 6.25 MG TAB PO SCH (09:04)
[2023-02-19] MEDS: ESCITALOPRAM 20 MG TAB PO SCH (09:05)
[2023-02-19] MEDS: ECOTRIN 81 MG TABEC PO SCH (09:56)
[2023-02-19] MEDS: LORazepam 2 MG/ML VIAL IVP PRN ×2 (09:56→15:57)
[2023-02-19 12:00] VITALS: BP 98/64; PULSE 87; RESP 18; TEMP 96.9; O2SAT 100
[2023-02-19] MEDS: HYDROcodone/APAP 5/325 MG 1 TAB TAB PO PRN (12:59)
[2023-02-19] MEDS ORDERED: ASPI-1856 PO (14:55)
[2023-02-19] MEDS ORDERED: LOSA-269 PO (14:55)
[2023-02-19] MEDS ORDERED: FURO40TA9 PO (14:55)
[2023-02-19] MEDS ORDERED: CARV6.25 PO (14:56)
[2023-02-19] MEDS ORDERED: SPIR50TA PO (14:57)
[2023-02-19] MEDS ORDERED: SPIR25TA21 PO (15:01)
[2023-02-19 16:00] VITALS: BP 98/57; PULSE 87; RESP 18; TEMP 96; O2SAT 98
[2023-02-19 16:08] VITALS: BP 98/64; PULSE 87; RESP 18; TEMP 96.9
[2023-02-19 16:16] VITALS: BP_DIAS 57; TEMP 96
== END 2023-02-19 18:35 | disposition home or self-care (01) | DRG 190 ==
LOC: MED 10:23 → MMU 14:28 → MTU 14:28 → MMU 17:40
PROVIDERS: ADMIT Family Medicine; ATTEND Family Medicine
DX: I21.4 Non-ST elevation (NSTEMI) myocardial infarction (principal); I50.23 Acute on chronic systolic (congestive) heart failure; E44.1 Mild protein-calorie malnutrition; E87.6 Hypokalemia; D64.9 Anemia, unspecified; F15.10 Other stimulant abuse, uncomplicated; I42.7 Cardiomyopathy due to drug and external agent; I11.0 Hypertensive heart disease with heart failure; T43.625A Adverse effect of amphetamines, initial encounter; J44.9 Chronic obstructive pulmonary disease, unspecified; Z88.0 Allergy status to penicillin; Z88.8 Allergy status to other drugs, medicaments and biological substances; Z79.899 Other long term (current) drug therapy; Z79.891 Long term (current) use of opiate analgesic; Z82.3 Family history of stroke; Z82.49 Family history of ischemic heart disease and other diseases of the circulatory system; Z71.51 Drug abuse counseling and surveillance of drug abuser; Z91.148 Patient's other noncompliance with medication regimen for other reason; Z86.73 Personal history of transient ischemic attack (TIA), and cerebral infarction without residual deficits; Y92.89 Other specified places as the place of occurrence of the external cause; Z68.27 Body mass index [BMI] 27.0-27.9, adult
CPT/HCPCS: 36415; 71045; 73030; 80048; 80053; 83036; 83735; 83880; 84484; 85025; 85379; 85610; 85730; 87081; 93005; 96374; 96375; 96376; 97112; 97116; 99285; J1644; J1940; J2060; J2270; Q0092

== ENCOUNTER 2023-02-24 18:20 | Inpatient (IN) | payer MEDICAID ==
[~2023-02-24] VITALS: Ht 172.7 cm; Wt 85.3 kg
[~2023-02-24 18:20] MED LIST changes: -CARV3.12 PO; +CARV6.25 PO; +SPIR25TA21 PO
[2023-02-24 18:30] VITALS: BP 107/74; PULSE 94; RESP 16; TEMP 97.8; O2SAT 95
[2023-02-24] MEDS ORDERED: HALOPERIDOL IM 5 MG/ML VIAL IM ONE (18:50)
[2023-02-24 19:30] VITALS: O2SAT 99
[2023-02-24 19:42] VITALS: O2SAT 99
[2023-02-24 20:02] LABS: BASOPHILS % (AUTO) 0.8 % (0.0-2.0); EOSINOPHILS # (AUTO) 0.1 K/uL (0-0.4); EOSINOPHILS % (AUTO) 1.8 % (0.0-4.0); HEMATOCRIT 37.3 % (36-48); HEMOGLOBIN 12.1 g/dL (12.0-16.0); LYMPHOCYTES # (AUTO) 2.5 K/uL (2.5-16.5); LYMPHOCYTES % (AUTO) 40.7 % (20.5-51.1); MEAN CORPUSCULAR HEMOGLOBIN 29 pg (27-31); MEAN CORPUSCULAR HGB CONC 33 g/dL (33-37); MEAN CORPUSCULAR VOLUME 87.9 fL (80-94); MONOCYTES # (AUTO) 0.7 K/uL (0.8-1.0); MONOCYTES % (AUTO) 11.8 % (1.7-9.3); NEUTROPHILS # (AUTO) 2.8 K/uL (1.8-7.7); NEUTROPHILS % (AUTO) 44.9 % (42.2-75.2); PLATELET COUNT (AUTO) 212 K/uL (140-450); RED BLOOD CELL COUNT(AUTO) 4.25 MIL/uL (4.20-5.40); RED CELL DISTRIBUTION WIDTH 14.7 % (11.6-13.7); WHITE BLOOD COUNT (AUTO) 6.2 K/uL (4.8-10.8)
[2023-02-24] MEDS ORDERED: NACL 0.9% 1,000 ML IV ONE (20:10)
[2023-02-24 20:32] LABS: ALANINE AMINOTRANSFERASE 15 U/L (12-78); ALBUMIN 3.8 g/dL (3.4-5.0); ALCOHOL, BLOOD 236 mg/dL (<10); ALKALINE PHOSPHATASE 77 U/L (50-136); ANION GAP 15.7 (8-16); ASPARTATE AMINOTRANSFERASE 18 U/L (15-37); CARBON DIOXIDE 25.6 mmol/L (21-32); CHLORIDE 104 mmol/L (98-107); CREATININE 1.3 mg/dL (0.6-1.3); GFR ARICAN-AMERICAN 53 mL/min (>90); GFR NON ARICAN-AMERICAN 44 mL/min (>90); GLUCOSE 95 mg/dL (74-106); LIPASE 66 U/L (73-393); POTASSIUM 3.3 mmol/L (3.5-5.1); SODIUM SERUM 142 mmol/L (136-145); TOTAL BILIRUBIN 0.4 mg/dL (0.0-1.0); TOTAL PROTEIN, SERUM 7.6 g/dL (6.4-8.2); UREA NITROGEN, BLOOD 25 mg/dL (7-18)
[2023-02-24 20:33] LABS: ACETAMINOPHEN < 0.5 ug/ml (10-30); SALICYLATE < 2.8 mg/dL (2.8-20.0)
[2023-02-24] MEDS ORDERED: ASPIRIN 325 MG TAB PO ONE (22:20)
[2023-02-24] MEDS ORDERED: ACETAMINOPHEN 325 MG TAB PO PRN (22:40)
[2023-02-24] MEDS ORDERED: guaiFENesin DM 200/20 MG-10 ML 10 ML UDC PO PRN (22:40)
[2023-02-24] MEDS ORDERED: ONDANSETRON 4 MG/2 ML VIAL IM/IVP PRN (22:40)
[2023-02-24] MEDS ORDERED: DOCUSATE SODIUM 100 MG GELCAP PO PRN (22:40)
[2023-02-24] MEDS ORDERED: POTASSIUM CHLORIDE 10 MEQ TABER PO PRN (22:40)
[2023-02-24 22:54] VITALS: O2SAT 98
[2023-02-24 23:08] LABS: INR 1.04 (0.8-1.2); PARTIAL THROMBOPLASTIN TIME 25.4 secs (22-35.6); PROTHROMBIN TIME 10.9 secs (10.8-13.4)
[2023-02-25] VITALS (8 sets, daily range): BP systolic 101–118; BP diastolic 65–82; PULSE 74–91; RESP 18–20; TEMP 96.9–98.1; O2SAT 95–100
[2023-02-25] MEDS ORDERED: LORazepam 2 MG/ML VIAL IVP ONE (01:50)
[2023-02-25] MEDS ORDERED: LORazepam 2 MG/ML VIAL ONE (03:02)
[2023-02-25 05:25] LABS: BASOPHILS % (AUTO) 0.7 % (0.0-2.0); EOSINOPHILS # (AUTO) 0.1 K/uL (0-0.4); EOSINOPHILS % (AUTO) 1.9 % (0.0-4.0); HEMATOCRIT 32.6 % (36-48); HEMOGLOBIN 10.7 g/dL (12.0-16.0); LYMPHOCYTES # (AUTO) 2.6 K/uL (2.5-16.5); MEAN CORPUSCULAR HEMOGLOBIN 29 pg (27-31); MEAN CORPUSCULAR HGB CONC 33 g/dL (33-37); MEAN CORPUSCULAR VOLUME 86.8 fL (80-94); MONOCYTES # (AUTO) 0.7 K/uL (0.8-1.0); MONOCYTES % (AUTO) 12.2 % (1.7-9.3); NEUTROPHILS # (AUTO) 2.2 K/uL (1.8-7.7); NEUTROPHILS % (AUTO) 39.2 % (42.2-75.2); PLATELET COUNT (AUTO) 187 K/uL (140-450); RED BLOOD CELL COUNT(AUTO) 3.76 MIL/uL (4.20-5.40); RED CELL DISTRIBUTION WIDTH 14.9 % (11.6-13.7); WHITE BLOOD COUNT (AUTO) 5.7 K/uL (4.8-10.8)
[2023-02-25 05:53] LABS: ALBUMIN 3.2 g/dL (3.4-5.0); ANION GAP 14.7 (8-16); CALCIUM 8.6 mg/dL (8.5-10.1); CARBON DIOXIDE 25.7 mmol/L (21-32); CREATININE 1.1 mg/dL (0.6-1.3); POTASSIUM 3.4 mmol/L (3.5-5.1); TOTAL BILIRUBIN 0.3 mg/dL (0.0-1.0); TOTAL PROTEIN, SERUM 6.7 g/dL (6.4-8.2)
[2023-02-25] MEDS ORDERED: MORPHINE SULFATE 2 MG/ML SYR IVP PRN (06:30)
[2023-02-25] MEDS ORDERED: NITROGLYCERIN 0.4 MG TAB SL PRN (06:30)
[2023-02-25] MEDS: ATORVASTATIN 20 MG TAB PO SCH (08:52)
[2023-02-25] MEDS: PANTOPRAZOLE 40 MG TABEC PO SCH (08:52)
[2023-02-25] MEDS: carvediloL 6.25 MG TAB PO SCH ×2 (08:52→20:42)
[2023-02-25] MEDS: SPIRONOLACTONE 25 MG TAB PO SCH ×2 (08:53→20:43)
[2023-02-25] MEDS: LOSARTAN 25 MG TAB PO SCH (08:53)
[2023-02-25] MEDS ORDERED: FUROSEMIDE 40 MG/4 ML VIAL IVP SCH (09:00)
[2023-02-25] MEDS ORDERED: ECOTRIN 81 MG TABEC PO SCH (09:00)
[2023-02-25] MEDS: LORazepam 2 MG/ML VIAL IVP PRN ×2 (09:54→15:52)
[2023-02-25] MEDS ORDERED: HEPARIN PER PHARMACY MC PRN (09:55)
[2023-02-25] MEDS ORDERED: COMMUNICATION ORDER MC PRN (10:00)
[2023-02-25] MEDS ORDERED: hePARIN / DEXT 5% PREMIX 250 ML IV SCH (10:20)
[2023-02-25] MEDS ORDERED: MULTIVITAMIN-12 10 ML, THIAMINE 100 MG, FOLIC ACID 1 MG in NACL 0.9% 1,000 ML IV SCH (12:00)
[2023-02-25] MEDS: chlordiazePOXIDE 25 MG CAP PO SCH ×2 (13:31→17:37)
[2023-02-25] MEDS ORDERED: LORazepam 2 MG/ML VIAL IM/IVP PRN (15:40)
[2023-02-25] MEDS: FUROSEMIDE 40 MG/4 ML VIAL IVP SCH (18:34)
[2023-02-25 18:56] LABS: APPEARANCE,URINE CLEAR (CLEAR); BILIRUBIN,URINE NEGATIVE (NEGATIVE); BLOOD, URINE TRACE-I (NEGATIVE); COLOR,URINE YELLOW (YELLOW); LEUKOCYTE ESTERASE ,URINE TRACE (NEGATIVE); NITRITE, URINE NEGATIVE (NEGATIVE); PH,URINE 6.5 (5.0-9.0); PROTEIN,URINE NEGATIVE (NEGATIVE); UGLUCOSE NEGATIVE (NEGATIVE); UROBILINOGEN,URINE 0.2 EU/dL (0.2 - 1)
[2023-02-25 19:09] LABS: BACTERIA,URINE FEW /HPF (None Seen); RBC,URINE 0-5 /HPF (0-5); SQUAMOUS EPITHELIAL CELL,UR 0-3 (FEW) /LPF (0-3 (FEW)); WBC,URINE 0-5 /HPF (0-5)
[2023-02-25 19:10] LABS: AMPHETAMINE, URINE NEGATIVE ng/ml (NEG <=1000); BARBITURATE, URINE NEGATIVE ng/ml (NEG <=200); BENZODIAZEPINE, URINE POSITIVE ng/mL (NEG <=200); CANNABINOID, URINE NEGATIVE ng/mL (NEG <=50); COCAINE, URINE NEGATIVE ng/mL (NEG <=300); OPIATE, URINE NEGATIVE ng/mL (NEG <=2000); PHENCYCLIDINE SCREEN,URINE NEGATIVE ng/mL (NEG <=25)
[2023-02-25] MEDS: HYDROcodone/APAP 7.5/325 MG 1 TAB PO PRN (20:42)
[2023-02-25] MEDS: ZOLPIDEM 5 MG TAB PO PRN (20:43)
[2023-02-26] MEDS: LORazepam 2 MG/ML VIAL IVP PRN ×2 (00:33→20:17)
[2023-02-26] MEDS: HYDROcodone/APAP 7.5/325 MG 1 TAB PO PRN ×4 (02:09→22:20)
[2023-02-26 04:00] VITALS: BP 100/69; PULSE 82; RESP 18; TEMP 97.9; O2SAT 99
[2023-02-26] MEDS ORDERED: LORazepam 1 MG TAB PO SCH (04:55)
[2023-02-26 05:19] LABS: BASOPHILS % (AUTO) 0.7 % (0.0-2.0); EOSINOPHILS # (AUTO) 0.2 K/uL (0-0.4); EOSINOPHILS % (AUTO) 3.4 % (0.0-4.0); HEMATOCRIT 34.3 % (36-48); HEMOGLOBIN 11.3 g/dL (12.0-16.0); LYMPHOCYTES # (AUTO) 2.4 K/uL (2.5-16.5); MEAN CORPUSCULAR HEMOGLOBIN 29 pg (27-31); MEAN CORPUSCULAR HGB CONC 33 g/dL (33-37); MEAN CORPUSCULAR VOLUME 86.9 fL (80-94); MONOCYTES # (AUTO) 0.9 K/uL (0.8-1.0); MONOCYTES % (AUTO) 15.7 % (1.7-9.3); NEUTROPHILS # (AUTO) 2.4 K/uL (1.8-7.7); NEUTROPHILS % (AUTO) 40.2 % (42.2-75.2); PLATELET COUNT (AUTO) 195 K/uL (140-450); RED BLOOD CELL COUNT(AUTO) 3.94 MIL/uL (4.20-5.40); RED CELL DISTRIBUTION WIDTH 14.5 % (11.6-13.7)
[2023-02-26 05:58] LABS: ALBUMIN 3.2 g/dL (3.4-5.0); CALCIUM 9.2 mg/dL (8.5-10.1); CARBON DIOXIDE 26.8 mmol/L (21-32); CREATININE 1.2 mg/dL (0.6-1.3); POTASSIUM 3.8 mmol/L (3.5-5.1); TOTAL BILIRUBIN 0.3 mg/dL (0.0-1.0); TOTAL PROTEIN, SERUM 6.9 g/dL (6.4-8.2)
[2023-02-26 08:00] VITALS: PULSE 92
[2023-02-26] MEDS: ATORVASTATIN 20 MG TAB PO SCH (08:17)
[2023-02-26] MEDS: SPIRONOLACTONE 25 MG TAB PO SCH ×2 (08:18→20:16)
[2023-02-26] MEDS: carvediloL 6.25 MG TAB PO SCH ×2 (08:19→20:16)
[2023-02-26] MEDS: chlordiazePOXIDE 25 MG CAP PO SCH ×3 (08:19→16:13)
[2023-02-26] MEDS: PANTOPRAZOLE 40 MG TABEC PO SCH (08:19)
[2023-02-26] MEDS: LOSARTAN 25 MG TAB PO SCH (08:19)
[2023-02-26] MEDS: ECOTRIN 81 MG TABEC PO SCH (08:20)
[2023-02-26 08:26] VITALS: PULSE 85; RESP 20
[2023-02-26] MEDS: FUROSEMIDE 40 MG/4 ML VIAL IVP SCH (09:00)
[2023-02-26 16:00] VITALS: BP 106/65; PULSE 72; RESP 19; TEMP 98; O2SAT 98
[2023-02-26 20:00] VITALS: BP 95/59; PULSE 79; RESP 16; TEMP 98.2; O2SAT 96
[2023-02-27] MEDS: ZOLPIDEM 5 MG TAB PO PRN ×2 (01:04→20:13)
[2023-02-27 04:00] VITALS: BP 97/67; PULSE 77; RESP 16; TEMP 95; O2SAT 97
[2023-02-27 05:16] LABS: BASOPHILS % (AUTO) 0.7 % (0.0-2.0); EOSINOPHILS # (AUTO) 0.2 K/uL (0-0.4); HEMATOCRIT 33.9 % (36-48); HEMOGLOBIN 11.1 g/dL (12.0-16.0); LYMPHOCYTES # (AUTO) 2.7 K/uL (2.5-16.5); LYMPHOCYTES % (AUTO) 50.8 % (20.5-51.1); MEAN CORPUSCULAR HEMOGLOBIN 29 pg (27-31); MEAN CORPUSCULAR HGB CONC 33 g/dL (33-37); MEAN CORPUSCULAR VOLUME 87.1 fL (80-94); MONOCYTES # (AUTO) 0.8 K/uL (0.8-1.0); MONOCYTES % (AUTO) 14.6 % (1.7-9.3); NEUTROPHILS # (AUTO) 1.6 K/uL (1.8-7.7); NEUTROPHILS % (AUTO) 29.9 % (42.2-75.2); PLATELET COUNT (AUTO) 190 K/uL (140-450); RED BLOOD CELL COUNT(AUTO) 3.89 MIL/uL (4.20-5.40); RED CELL DISTRIBUTION WIDTH 14.5 % (11.6-13.7); WHITE BLOOD COUNT (AUTO) 5.3 K/uL (4.8-10.8)
[2023-02-27] MEDS: LORazepam 2 MG/ML VIAL IVP PRN (05:40)
[2023-02-27 06:09] LABS: ALBUMIN 3.2 g/dL (3.4-5.0); ANION GAP 11.1 (8-16); CALCIUM 9.2 mg/dL (8.5-10.1); CARBON DIOXIDE 28.8 mmol/L (21-32); CREATININE 1.1 mg/dL (0.6-1.3); POTASSIUM 3.9 mmol/L (3.5-5.1); TOTAL BILIRUBIN 0.2 mg/dL (0.0-1.0); TOTAL PROTEIN, SERUM 6.8 g/dL (6.4-8.2)
[2023-02-27 08:00] VITALS: PULSE 87; RESP 18
[2023-02-27] MEDS: LOSARTAN 25 MG TAB PO SCH (08:23)
[2023-02-27] MEDS: PANTOPRAZOLE 40 MG TABEC PO SCH (08:24)
[2023-02-27] MEDS: FUROSEMIDE 40 MG TAB PO SCH ×2 (08:24→18:05)
[2023-02-27] MEDS: HYDROcodone/APAP 7.5/325 MG 1 TAB PO PRN ×2 (08:26→23:56)
[2023-02-27] MEDS: SPIRONOLACTONE 25 MG TAB PO SCH ×2 (08:27→20:12)
[2023-02-27] MEDS: carvediloL 6.25 MG TAB PO SCH ×2 (08:27→20:18)
[2023-02-27] MEDS: ATORVASTATIN 20 MG TAB PO SCH (08:28)
[2023-02-27] MEDS: chlordiazePOXIDE 25 MG CAP PO SCH ×3 (08:29→18:02)
[2023-02-27] MEDS: ECOTRIN 81 MG TABEC PO SCH (08:32)
[2023-02-27 16:00] VITALS: BP 103/60; PULSE 89; RESP 18; TEMP 97.6; O2SAT 99
[2023-02-27 20:00] VITALS: PULSE 87; RESP 18; O2SAT 97
[2023-02-28] VITALS: BP 105/68; PULSE 87; RESP 18; TEMP 97.2; O2SAT 97
[2023-02-28] MEDS: LORazepam 2 MG/ML VIAL IVP PRN (01:54)
[2023-02-28 05:11] LABS: BASOPHILS % (AUTO) 0.7 % (0.0-2.0); EOSINOPHILS # (AUTO) 0.2 K/uL (0-0.4); EOSINOPHILS % (AUTO) 3.6 % (0.0-4.0); HEMATOCRIT 35.2 % (36-48); HEMOGLOBIN 11.4 g/dL (12.0-16.0); LYMPHOCYTES # (AUTO) 3.2 K/uL (2.5-16.5); LYMPHOCYTES % (AUTO) 50.3 % (20.5-51.1); MEAN CORPUSCULAR HEMOGLOBIN 28 pg (27-31); MEAN CORPUSCULAR HGB CONC 32 g/dL (33-37); MEAN CORPUSCULAR VOLUME 87.6 fL (80-94); MONOCYTES # (AUTO) 0.7 K/uL (0.8-1.0); MONOCYTES % (AUTO) 10.7 % (1.7-9.3); NEUTROPHILS # (AUTO) 2.2 K/uL (1.8-7.7); NEUTROPHILS % (AUTO) 34.7 % (42.2-75.2); PLATELET COUNT (AUTO) 201 K/uL (140-450); RED BLOOD CELL COUNT(AUTO) 4.02 MIL/uL (4.20-5.40); RED CELL DISTRIBUTION WIDTH 14.4 % (11.6-13.7); WHITE BLOOD COUNT (AUTO) 6.3 K/uL (4.8-10.8)
[2023-02-28 05:43] LABS: ALBUMIN 3.2 g/dL (3.4-5.0); ANION GAP 11.9 (8-16); CALCIUM 9.4 mg/dL (8.5-10.1); CARBON DIOXIDE 28.1 mmol/L (21-32); CREATININE 1.2 mg/dL (0.6-1.3); TOTAL BILIRUBIN 0.2 mg/dL (0.0-1.0)
[2023-02-28 08:00] VITALS: BP 115/71; PULSE 87; RESP 20; TEMP 96.9; O2SAT 97; O2SAT 98
[2023-02-28] MEDS: ECOTRIN 81 MG TABEC PO SCH (08:16)
[2023-02-28] MEDS: chlordiazePOXIDE 25 MG CAP PO SCH (08:16)
[2023-02-28] MEDS: ATORVASTATIN 20 MG TAB PO SCH (08:16)
[2023-02-28] MEDS: SPIRONOLACTONE 25 MG TAB PO SCH (08:17)
[2023-02-28] MEDS: FUROSEMIDE 40 MG TAB PO SCH (08:17)
[2023-02-28] MEDS: PANTOPRAZOLE 40 MG TABEC PO SCH (08:17)
[2023-02-28] MEDS: carvediloL 6.25 MG TAB PO SCH (08:18)
[2023-02-28] MEDS: HYDROcodone/APAP 7.5/325 MG 1 TAB PO PRN (08:18)
[2023-02-28] MEDS: LOSARTAN 25 MG TAB PO SCH (08:19)
[2023-02-28] MEDS ORDERED: FURO-570 PO (08:37)
[2023-02-28 12:00] VITALS: BP 115/71; PULSE 87; RESP 20; TEMP 96.9
== END 2023-02-28 13:30 | disposition home or self-care (01) | DRG 816 ==
LOC: MED 18:20 → MTU 22:40
PROVIDERS: ADMIT Student in an Organized Health Care Education/Training Program; ATTEND Student in an Organized Health Care Education/Training Program
DX: T51.0X1A Toxic effect of ethanol, accidental (unintentional), initial encounter (principal); G92.9 Unspecified toxic encephalopathy; G92.8 Other toxic encephalopathy; I21.4 Non-ST elevation (NSTEMI) myocardial infarction; I50.43 Acute on chronic combined systolic (congestive) and diastolic (congestive) heart failure; Y90.7 Blood alcohol level of 200-239 mg/100 ml; I11.0 Hypertensive heart disease with heart failure; F10.129 Alcohol abuse with intoxication, unspecified; E87.6 Hypokalemia; D64.9 Anemia, unspecified; I25.5 Ischemic cardiomyopathy; F10.139 Alcohol abuse with withdrawal, unspecified; J44.9 Chronic obstructive pulmonary disease, unspecified; Z88.0 Allergy status to penicillin; Z88.8 Allergy status to other drugs, medicaments and biological substances; Z79.899 Other long term (current) drug therapy; Z79.891 Long term (current) use of opiate analgesic; Z82.3 Family history of stroke; Z82.49 Family history of ischemic heart disease and other diseases of the circulatory system; Z91.148 Patient's other noncompliance with medication regimen for other reason; Z71.51 Drug abuse counseling and surveillance of drug abuser
CPT/HCPCS: 36415; 71045; 80053; 80305; 81001; 83690; 83880; 84484; 85025; 85610; 85730; 87081; 93005; 96360; 99285; A9153; G0480; G0482; J1644; J1940; J2060; J3411; J3490; J7030; Q0092

== ENCOUNTER 2023-03-02 11:15 | Inpatient (IN) | payer MEDICAID ==
[~2023-03-02] VITALS: Ht 157.5 cm; Wt 79.4 kg
[~2023-03-02 11:15] MED LIST changes: +FURO-570 PO; -FURO40TA9 PO
[2023-03-02 11:21] VITALS: BP 94/55; PULSE 99; RESP 18; TEMP 98.8; O2SAT 100
[2023-03-02] MEDS ORDERED: LIDOCAINE/PRILOCAINE 2.5% 5 GM TUBE TP ONE (11:35)
[2023-03-02] MEDS ORDERED: CYCLOBENZAPRINE 10 MG TAB PO ONE (11:35)
[2023-03-02] MEDS ORDERED: KETOROLAC 30 MG/ML VIAL IM ONE (11:35)
[2023-03-02 12:32] LABS: BASOPHILS # (AUTO) 0.1 K/uL (0.00-0.22); EOSINOPHILS # (AUTO) 0.2 K/uL (0-0.4); EOSINOPHILS % (AUTO) 4.2 % (0.0-4.0); HEMATOCRIT 33.7 % (36-48); HEMOGLOBIN 11.2 g/dL (12.0-16.0); LYMPHOCYTES # (AUTO) 2.1 K/uL (2.5-16.5); LYMPHOCYTES % (AUTO) 36.9 % (20.5-51.1); MEAN CORPUSCULAR HEMOGLOBIN 29 pg (27-31); MEAN CORPUSCULAR HGB CONC 33 g/dL (33-37); MEAN CORPUSCULAR VOLUME 86.8 fL (80-94); NEUTROPHILS # (AUTO) 2.3 K/uL (1.8-7.7); NEUTROPHILS % (AUTO) 39.9 % (42.2-75.2); PLATELET COUNT (AUTO) 190 K/uL (140-450); RED BLOOD CELL COUNT(AUTO) 3.89 MIL/uL (4.20-5.40); RED CELL DISTRIBUTION WIDTH 14.6 % (11.6-13.7); WHITE BLOOD COUNT (AUTO) 5.8 K/uL (4.8-10.8)
[2023-03-02 13:07] LABS: ALBUMIN 3.5 g/dL (3.4-5.0); ANION GAP 13.6 (8-16); CALCIUM 9.1 mg/dL (8.5-10.1); CARBON DIOXIDE 23.5 mmol/L (21-32); CREATININE 1.4 mg/dL (0.6-1.3); POTASSIUM 4.1 mmol/L (3.5-5.1); TOTAL BILIRUBIN 0.2 mg/dL (0.0-1.0); TOTAL PROTEIN, SERUM 7.2 g/dL (6.4-8.2)
[2023-03-02 13:18] LABS: APPEARANCE,URINE CLEAR (CLEAR); BILIRUBIN,URINE NEGATIVE (NEGATIVE); BLOOD, URINE 1+ (NEGATIVE); COLOR,URINE YELLOW (YELLOW); LEUKOCYTE ESTERASE ,URINE 1+ (NEGATIVE); NITRITE, URINE NEGATIVE (NEGATIVE); PROTEIN,URINE NEGATIVE (NEGATIVE); UGLUCOSE NEGATIVE (NEGATIVE); UROBILINOGEN,URINE 0.2 EU/dL (0.2 - 1)
[2023-03-02 13:30] LABS: BACTERIA,URINE 2+ /HPF (None Seen); RBC,URINE 0-5 /HPF (0-5); SQUAMOUS EPITHELIAL CELL,UR 50-80 /LPF (0-3 (FEW))
[2023-03-02 13:31] LABS: AMPHETAMINE, URINE NEGATIVE ng/ml (NEG <=1000); BARBITURATE, URINE NEGATIVE ng/ml (NEG <=200); BENZODIAZEPINE, URINE POSITIVE ng/mL (NEG <=200); CANNABINOID, URINE POSITIVE ng/mL (NEG <=50); COCAINE, URINE NEGATIVE ng/mL (NEG <=300); OPIATE, URINE POSITIVE ng/mL (NEG <=2000); PHENCYCLIDINE SCREEN,URINE NEGATIVE ng/mL (NEG <=25)
[2023-03-02] MEDS ORDERED: FUROSEMIDE 40 MG/4 ML VIAL IVP ONE (13:50)
[2023-03-02] MEDS ORDERED: ACETAMINOPHEN 325 MG TAB PO PRN (14:20)
[2023-03-02] MEDS ORDERED: ZOLPIDEM 10 MG TAB PO PRN (14:20)
[2023-03-02] MEDS ORDERED: DOCUSATE SODIUM 100 MG GELCAP PO PRN (14:20)
[2023-03-02] MEDS ORDERED: POTASSIUM CHLORIDE 10 MEQ TABER PO PRN (14:20)
[2023-03-02] MEDS ORDERED: MAG SULF 2000 MG/WATER PREMIX 50 ML IV PRN (14:20)
[2023-03-02] MEDS ORDERED: ONDANSETRON 4 MG/2 ML VIAL IVP PRN (14:20)
[2023-03-02 15:40] VITALS: PULSE 68; RESP 20; O2SAT 99
[2023-03-02 16:00] VITALS: BP 115/77; PULSE 70; PULSE 75; RESP 20; TEMP 97.1; O2SAT 97
[2023-03-02 16:02] VITALS: PULSE 66; RESP 68; O2SAT 99
[2023-03-02 20:00] VITALS: BP 100/69; PULSE 73; PULSE 86; RESP 16; TEMP 97; O2SAT 100
[2023-03-02] MEDS: SPIRONOLACTONE 25 MG TAB PO SCH (20:18)
[2023-03-02] MEDS: LORazepam 2 MG/ML VIAL IVP PRN (20:18)
[2023-03-02] MEDS: FUROSEMIDE 40 MG/4 ML VIAL IVP SCH (20:18)
[2023-03-02] MEDS: carvediloL 6.25 MG TAB PO SCH (20:18)
[2023-03-02] MEDS: MORPHINE SULFATE 2 MG/ML SYR IVP PRN (23:25)
[2023-03-03] VITALS (11 sets, daily range): BP systolic 98–135; BP diastolic 64–77; PULSE 71–98; RESP 16–20; TEMP 97–98.8; O2SAT 94–100
[2023-03-03] MEDS: LORazepam 2 MG/ML VIAL IVP PRN ×4 (06:14→22:45)
[2023-03-03 07:02] LABS: ANION GAP 11.9 (8-16); CALCIUM 9.3 mg/dL (8.5-10.1); CARBON DIOXIDE 25.9 mmol/L (21-32); CREATININE 1.5 mg/dL (0.6-1.3); POTASSIUM 3.8 mmol/L (3.5-5.1)
[2023-03-03 07:11] LABS: BASOPHILS % (AUTO) 0.7 % (0.0-2.0); EOSINOPHILS # (AUTO) 0.2 K/uL (0-0.4); EOSINOPHILS % (AUTO) 3.6 % (0.0-4.0); HEMATOCRIT 35.4 % (36-48); HEMOGLOBIN 11.7 g/dL (12.0-16.0); LYMPHOCYTES # (AUTO) 1.9 K/uL (2.5-16.5); LYMPHOCYTES % (AUTO) 41.4 % (20.5-51.1); MEAN CORPUSCULAR HEMOGLOBIN 29 pg (27-31); MEAN CORPUSCULAR HGB CONC 33 g/dL (33-37); MEAN CORPUSCULAR VOLUME 87.2 fL (80-94); MONOCYTES # (AUTO) 0.7 K/uL (0.8-1.0); MONOCYTES % (AUTO) 15.6 % (1.7-9.3); NEUTROPHILS # (AUTO) 1.7 K/uL (1.8-7.7); NEUTROPHILS % (AUTO) 38.7 % (42.2-75.2); PLATELET COUNT (AUTO) 189 K/uL (140-450); RED BLOOD CELL COUNT(AUTO) 4.06 MIL/uL (4.20-5.40); RED CELL DISTRIBUTION WIDTH 14.4 % (11.6-13.7); WHITE BLOOD COUNT (AUTO) 4.5 K/uL (4.8-10.8)
[2023-03-03] MEDS: ATORVASTATIN 20 MG TAB PO SCH (08:32)
[2023-03-03] MEDS: PANTOPRAZOLE 40 MG TABEC PO SCH (08:32)
[2023-03-03] MEDS: ECOTRIN 81 MG TABEC PO SCH (08:32)
[2023-03-03] MEDS: FUROSEMIDE 40 MG/4 ML VIAL IVP SCH ×2 (08:43→22:43)
[2023-03-03] MEDS: carvediloL 6.25 MG TAB PO SCH ×2 (08:43→22:44)
[2023-03-03] MEDS: SPIRONOLACTONE 25 MG TAB PO SCH ×2 (08:43→22:44)
[2023-03-03] MEDS: LOSARTAN 25 MG TAB PO SCH (08:44)
[2023-03-03] MEDS: MORPHINE SULFATE 2 MG/ML SYR IVP PRN ×3 (10:39→21:02)
[2023-03-04] VITALS (8 sets, daily range): BP systolic 102–130; BP diastolic 61–75; PULSE 78–96; RESP 17–20; TEMP 97.1–97.9; O2SAT 95–100
[2023-03-04] MEDS: MORPHINE SULFATE 2 MG/ML SYR IVP PRN ×2 (01:41→15:39)
[2023-03-04] MEDS: LORazepam 2 MG/ML VIAL IVP PRN ×3 (05:41→13:11)
[2023-03-04 06:05] LABS: CARBON DIOXIDE 25.4 mmol/L (21-32); CREATININE 1.2 mg/dL (0.6-1.3); POTASSIUM 4.4 mmol/L (3.5-5.1)
[2023-03-04 06:25] LABS: BASOPHILS % (AUTO) 0.6 % (0.0-2.0); EOSINOPHILS # (AUTO) 0.2 K/uL (0-0.4); EOSINOPHILS % (AUTO) 3.1 % (0.0-4.0); HEMOGLOBIN 11.1 g/dL (12.0-16.0); LYMPHOCYTES % (AUTO) 33.5 % (20.5-51.1); MEAN CORPUSCULAR HEMOGLOBIN 29 pg (27-31); MEAN CORPUSCULAR HGB CONC 33 g/dL (33-37); MEAN CORPUSCULAR VOLUME 87.9 fL (80-94); MONOCYTES # (AUTO) 0.9 K/uL (0.8-1.0); MONOCYTES % (AUTO) 15.6 % (1.7-9.3); NEUTROPHILS # (AUTO) 2.7 K/uL (1.8-7.7); NEUTROPHILS % (AUTO) 47.2 % (42.2-75.2); PLATELET COUNT (AUTO) 183 K/uL (140-450); RED BLOOD CELL COUNT(AUTO) 3.88 MIL/uL (4.20-5.40); RED CELL DISTRIBUTION WIDTH 14.5 % (11.6-13.7); WHITE BLOOD COUNT (AUTO) 5.8 K/uL (4.8-10.8)
[2023-03-04] MEDS: SPIRONOLACTONE 25 MG TAB PO SCH ×2 (09:04→21:13)
[2023-03-04] MEDS: FUROSEMIDE 40 MG/4 ML VIAL IVP SCH (09:04)
[2023-03-04] MEDS: ATORVASTATIN 20 MG TAB PO SCH (09:05)
[2023-03-04] MEDS: carvediloL 6.25 MG TAB PO SCH ×2 (09:05→21:00)
[2023-03-04] MEDS: PANTOPRAZOLE 40 MG TABEC PO SCH (09:05)
[2023-03-04] MEDS: LOSARTAN 25 MG TAB PO SCH (09:05)
[2023-03-04] MEDS: ECOTRIN 81 MG TABEC PO SCH (09:05)
[2023-03-04] MEDS: FUROSEMIDE 40 MG TAB PO SCH (17:53)
[2023-03-05] MEDS: oxyCODONE/APAP 5/325 MG 1 TAB TAB PO PRN ×2 (01:24→05:38)
[2023-03-05] MEDS: LORazepam 2 MG/ML VIAL IVP PRN ×2 (04:21→10:08)
[2023-03-05 06:40] LABS: ANION GAP 10.8 (8-16); CALCIUM 9.1 mg/dL (8.5-10.1); POTASSIUM 3.8 mmol/L (3.5-5.1)
[2023-03-05 07:01] LABS: BASOPHILS % (AUTO) 0.6 % (0.0-2.0); EOSINOPHILS # (AUTO) 0.3 K/uL (0-0.4); EOSINOPHILS % (AUTO) 4.8 % (0.0-4.0); HEMATOCRIT 35.8 % (36-48); HEMOGLOBIN 11.7 g/dL (12.0-16.0); LYMPHOCYTES # (AUTO) 2.3 K/uL (2.5-16.5); LYMPHOCYTES % (AUTO) 42.3 % (20.5-51.1); MEAN CORPUSCULAR HEMOGLOBIN 29 pg (27-31); MEAN CORPUSCULAR HGB CONC 33 g/dL (33-37); MEAN CORPUSCULAR VOLUME 87.3 fL (80-94); MONOCYTES # (AUTO) 0.9 K/uL (0.8-1.0); MONOCYTES % (AUTO) 16.1 % (1.7-9.3); NEUTROPHILS % (AUTO) 36.2 % (42.2-75.2); PLATELET COUNT (AUTO) 186 K/uL (140-450); RED CELL DISTRIBUTION WIDTH 14.4 % (11.6-13.7); WHITE BLOOD COUNT (AUTO) 5.5 K/uL (4.8-10.8)
[2023-03-05] MEDS ORDERED: BUDESONIDE 0.25 MG/2 ML NEBU INH SCH (07:30)
[2023-03-05 08:00] VITALS: BP 110/50; PULSE 85; RESP 18; TEMP 97.9; O2SAT 98
[2023-03-05] MEDS: LOSARTAN 25 MG TAB PO SCH (08:53)
[2023-03-05] MEDS: ECOTRIN 81 MG TABEC PO SCH (08:54)
[2023-03-05] MEDS: carvediloL 6.25 MG TAB PO SCH (08:54)
[2023-03-05] MEDS: ATORVASTATIN 20 MG TAB PO SCH (08:54)
[2023-03-05] MEDS: FUROSEMIDE 40 MG TAB PO SCH (08:54)
[2023-03-05] MEDS: PANTOPRAZOLE 40 MG TABEC PO SCH (08:54)
[2023-03-05] MEDS: SPIRONOLACTONE 25 MG TAB PO SCH (08:56)
== END 2023-03-05 12:25 | disposition home or self-care (01) | DRG 194 ==
LOC: MED 11:15 → MTU 14:19
PROVIDERS: ADMIT Family Medicine; ATTEND Family Medicine
DX: I11.0 Hypertensive heart disease with heart failure (principal); N17.9 Acute kidney failure, unspecified; I50.23 Acute on chronic systolic (congestive) heart failure; I42.7 Cardiomyopathy due to drug and external agent; F10.10 Alcohol abuse, uncomplicated; M54.50 Low back pain, unspecified; G89.29 Other chronic pain; D64.9 Anemia, unspecified; R79.89 Other specified abnormal findings of blood chemistry; J44.9 Chronic obstructive pulmonary disease, unspecified; F15.10 Other stimulant abuse, uncomplicated; Z88.0 Allergy status to penicillin; Z88.8 Allergy status to other drugs, medicaments and biological substances; Z79.899 Other long term (current) drug therapy; Z79.82 Long term (current) use of aspirin; I25.2 Old myocardial infarction; Z86.73 Personal history of transient ischemic attack (TIA), and cerebral infarction without residual deficits; Z82.49 Family history of ischemic heart disease and other diseases of the circulatory system; Z82.3 Family history of stroke; Z72.0 Tobacco use; Z71.6 Tobacco abuse counseling; Z71.51 Drug abuse counseling and surveillance of drug abuser; Z91.148 Patient's other noncompliance with medication regimen for other reason
CPT/HCPCS: 36415; 71045; 72110; 80048; 80053; 80305; 81001; 83735; 83880; 84484; 85025; 87081; 87086; 93005; 96372; 96374; 99285; J1644; J1885; J1940; J2060; J2270

== ENCOUNTER 2023-03-13 23:20 | Emergency (ER) | payer MEDICAID ==
[~2023-03-13] VITALS: Ht 157.5 cm; Wt 81.6 kg
[2023-03-13 23:28] VITALS: BP 99/61; PULSE 86; RESP 16; TEMP 97.4; O2SAT 98
[2023-03-14 00:20] LABS: BASOPHILS # (AUTO) 0.1 K/uL (0.00-0.22); EOSINOPHILS # (AUTO) 0.2 K/uL (0-0.4); HEMATOCRIT 33.2 % (36-48); HEMOGLOBIN 10.9 g/dL (12.0-16.0); LYMPHOCYTES # (AUTO) 2.9 K/uL (2.5-16.5); LYMPHOCYTES % (AUTO) 34.1 % (20.5-51.1); MEAN CORPUSCULAR HEMOGLOBIN 28 pg (27-31); MEAN CORPUSCULAR HGB CONC 33 g/dL (33-37); MONOCYTES # (AUTO) 1.1 K/uL (0.8-1.0); MONOCYTES % (AUTO) 12.8 % (1.7-9.3); NEUTROPHILS # (AUTO) 4.2 K/uL (1.8-7.7); NEUTROPHILS % (AUTO) 50.1 % (42.2-75.2); PLATELET COUNT (AUTO) 198 K/uL (140-450); RED BLOOD CELL COUNT(AUTO) 3.86 MIL/uL (4.20-5.40); RED CELL DISTRIBUTION WIDTH 14.7 % (11.6-13.7); WHITE BLOOD COUNT (AUTO) 8.4 K/uL (4.8-10.8)
[2023-03-14 00:36] LABS: INR 1.12 (0.8-1.2); PARTIAL THROMBOPLASTIN TIME 25.2 secs (22-35.6); PROTHROMBIN TIME 11.7 secs (10.8-13.4)
[2023-03-14 01:01] LABS: ALBUMIN 3.4 g/dL (3.4-5.0); ANION GAP 12.2 (8-16); CALCIUM 8.8 mg/dL (8.5-10.1); CARBON DIOXIDE 25.8 mmol/L (21-32); CREATININE 1.3 mg/dL (0.6-1.3); TOTAL BILIRUBIN 0.2 mg/dL (0.0-1.0); TOTAL PROTEIN, SERUM 7.1 g/dL (6.4-8.2)
[2023-03-14] MEDS: MORPHINE SULFATE 2 MG/ML SYR IVP PRN (04:08)
[2023-03-14] MEDS: FUROSEMIDE 40 MG TAB PO ONE (05:15)
[2023-03-14 06:13] VITALS: BP 107/79; PULSE 76; RESP 15; TEMP 97.4; O2SAT 99
== END 2023-03-14 06:13 | disposition home or self-care (01) ==
LOC: MED 23:20
DX: I11.0 Hypertensive heart disease with heart failure (principal); I50.9 Heart failure, unspecified; R07.9 Chest pain, unspecified; R06.02 Shortness of breath; Z86.73 Personal history of transient ischemic attack (TIA), and cerebral infarction without residual deficits; Z88.0 Allergy status to penicillin; Z88.8 Allergy status to other drugs, medicaments and biological substances; Z79.899 Other long term (current) drug therapy
CPT/HCPCS: 36415; 71045; 80053; 83880; 84484; 85025; 85379; 85610; 85730; 93005; 96374; 99285; J2270

== ENCOUNTER 2023-03-19 03:35 | Inpatient (IN) | payer MEDICAID ==
[~2023-03-19] VITALS: Ht 157.5 cm; Wt 82.6 kg
[~2023-03-19 03:35] MED LIST changes: -PANT40EC56 PO
[2023-03-19 03:45] VITALS: BP 115/72; PULSE 73; RESP 26; TEMP 96.9; O2SAT 100
[2023-03-19] MEDS ORDERED: NITROGLYCERIN 2% 1 GM PKT TP ONE (04:10)
[2023-03-19] MEDS ORDERED: MORPHINE SULFATE 4 MG/ML SYR IVP ONE (04:10)
[2023-03-19 05:06] LABS: BASOPHILS # (AUTO) 0.1 K/uL (0.00-0.22); BASOPHILS % (AUTO) 0.8 % (0.0-2.0); EOSINOPHILS # (AUTO) 0.1 K/uL (0-0.4); EOSINOPHILS % (AUTO) 2.2 % (0.0-4.0); HEMOGLOBIN 10.2 g/dL (12.0-16.0); LYMPHOCYTES # (AUTO) 2.8 K/uL (2.5-16.5); LYMPHOCYTES % (AUTO) 42.4 % (20.5-51.1); MEAN CORPUSCULAR HEMOGLOBIN 29 pg (27-31); MEAN CORPUSCULAR HGB CONC 33 g/dL (33-37); MEAN CORPUSCULAR VOLUME 87.5 fL (80-94); MONOCYTES # (AUTO) 0.9 K/uL (0.8-1.0); MONOCYTES % (AUTO) 13.3 % (1.7-9.3); NEUTROPHILS # (AUTO) 2.7 K/uL (1.8-7.7); NEUTROPHILS % (AUTO) 41.3 % (42.2-75.2); PLATELET COUNT (AUTO) 192 K/uL (140-450); RED BLOOD CELL COUNT(AUTO) 3.55 MIL/uL (4.20-5.40); RED CELL DISTRIBUTION WIDTH 14.8 % (11.6-13.7); WHITE BLOOD COUNT (AUTO) 6.6 K/uL (4.8-10.8)
[2023-03-19 05:23] LABS: ALBUMIN 3.2 g/dL (3.4-5.0); ANION GAP 7.8 (8-16); CALCIUM 8.8 mg/dL (8.5-10.1); CARBON DIOXIDE 28.9 mmol/L (21-32); CREATININE 1.1 mg/dL (0.6-1.3); POTASSIUM 3.7 mmol/L (3.5-5.1); TOTAL BILIRUBIN 0.1 mg/dL (0.0-1.0); TOTAL PROTEIN, SERUM 6.6 g/dL (6.4-8.2)
[2023-03-19] MEDS ORDERED: FURO-570 PO (05:36)
[2023-03-19] MEDS ORDERED: ONDANSETRON 4 MG/2 ML VIAL IVP PRN (06:30)
[2023-03-19] MEDS ORDERED: LORazepam 1 MG TAB PO PRN (08:30)
[2023-03-19] MEDS ORDERED: MORPHINE SULFATE 2 MG/ML SYR IVP PRN (08:30)
[2023-03-19] MEDS ORDERED: LOSARTAN 25 MG TAB PO SCH (09:00)
[2023-03-19] MEDS ORDERED: carvediloL 6.25 MG TAB PO SCH (09:00)
[2023-03-19] MEDS ORDERED: PANTOPRAZOLE 40 MG TABEC PO SCH (09:00)
[2023-03-19] MEDS ORDERED: FUROSEMIDE 40 MG/5 ML ORAL SOL UDC GT SCH (09:00)
[2023-03-19] MEDS ORDERED: SPIRONOLACTONE 25 MG TAB PO SCH (09:00)
[2023-03-19] MEDS ORDERED: ESCITALOPRAM 20 MG TAB PO SCH (09:00)
[2023-03-19] MEDS ORDERED: ATORVASTATIN 20 MG TAB ONE (10:00)
[2023-03-19] MEDS ORDERED: ASPIRIN 81 MG TAB.CHEW ONE (10:01)
[2023-03-19] MEDS ORDERED: CRUSHER, PILL MC ONE (10:06)
[2023-03-19] MEDS ORDERED: FUROSEMIDE 40 MG TAB ONE (10:15)
[2023-03-19 14:54] VITALS: BP 122/78; PULSE 58; RESP 20; TEMP 97.6; O2SAT 96
[2023-03-19] MEDS ORDERED: ATORVASTATIN 20 MG TAB PO SCH (21:00)
[2023-03-20] MEDS ORDERED: ASPIRIN 81 MG TAB.CHEW PO SCH (09:00)
== END 2023-03-19 14:54 | disposition home or self-care (01) | DRG 198 ==
LOC: MED 03:35 → MTU 06:29
PROVIDERS: ADMIT Internal Medicine; ATTEND Internal Medicine
DX: I24.89 Other forms of acute ischemic heart disease (principal); I42.9 Cardiomyopathy, unspecified; I50.22 Chronic systolic (congestive) heart failure; I11.0 Hypertensive heart disease with heart failure; F10.10 Alcohol abuse, uncomplicated; Y90.9 Presence of alcohol in blood, level not specified; F15.10 Other stimulant abuse, uncomplicated; J44.9 Chronic obstructive pulmonary disease, unspecified; Z88.0 Allergy status to penicillin; Z79.899 Other long term (current) drug therapy; Z88.8 Allergy status to other drugs, medicaments and biological substances; Z86.73 Personal history of transient ischemic attack (TIA), and cerebral infarction without residual deficits; Z71.51 Drug abuse counseling and surveillance of drug abuser
CPT/HCPCS: 36415; 71045; 80053; 83880; 84484; 85025; 93005; 96374; 99285; J2270; Q0092

== ENCOUNTER 2023-03-30 07:51 | Inpatient (IN) | payer MEDICAID ==
[~2023-03-30] VITALS: Ht 157.5 cm; Wt 81.6 kg
[2023-03-30 07:56] VITALS: BP 131/72; PULSE 73; RESP 18; TEMP 98.7; O2SAT 99
[2023-03-30] MEDS ORDERED: KETOROLAC 30 MG/ML VIAL IM ONE (08:10)
[2023-03-30] MEDS ORDERED: CYCL-711 PO (08:25)
[2023-03-30] MEDS ORDERED: MELO-174 PO (08:25)
[2023-03-30 09:40] LABS: BASOPHILS % (AUTO) 0.8 % (0.0-2.0); EOSINOPHILS # (AUTO) 0.1 K/uL (0-0.4); HEMATOCRIT 34.6 % (36-48); HEMOGLOBIN 11.3 g/dL (12.0-16.0); LYMPHOCYTES % (AUTO) 43.6 % (20.5-51.1); MEAN CORPUSCULAR HEMOGLOBIN 28 pg (27-31); MEAN CORPUSCULAR HGB CONC 33 g/dL (33-37); MEAN CORPUSCULAR VOLUME 86.3 fL (80-94); MONOCYTES # (AUTO) 0.7 K/uL (0.8-1.0); MONOCYTES % (AUTO) 15.4 % (1.7-9.3); NEUTROPHILS # (AUTO) 1.8 K/uL (1.8-7.7); NEUTROPHILS % (AUTO) 38.2 % (42.2-75.2); PLATELET COUNT (AUTO) 202 K/uL (140-450); RED BLOOD CELL COUNT(AUTO) 4.01 MIL/uL (4.20-5.40); RED CELL DISTRIBUTION WIDTH 14.6 % (11.6-13.7); WHITE BLOOD COUNT (AUTO) 4.6 K/uL (4.8-10.8)
[2023-03-30 09:46] LABS: INR 0.98 (0.8-1.2); PARTIAL THROMBOPLASTIN TIME 24.3 secs (22-35.6); PROTHROMBIN TIME 10.3 secs (10.8-13.4)
[2023-03-30 09:47] LABS: ALBUMIN 3.5 g/dL (3.4-5.0); ANION GAP 14.4 (8-16); CALCIUM 8.8 mg/dL (8.5-10.1); CARBON DIOXIDE 25.4 mmol/L (21-32); CREATININE 1.3 mg/dL (0.6-1.3); POTASSIUM 3.8 mmol/L (3.5-5.1); TOTAL BILIRUBIN 0.4 mg/dL (0.0-1.0); TOTAL PROTEIN, SERUM 7.2 g/dL (6.4-8.2)
[2023-03-30] MEDS ORDERED: HYDROcodone/APAP 5/325 MG 1 TAB TAB PO ONE (09:55)
[2023-03-30] MEDS ORDERED: ASPIRIN 81 MG TAB.CHEW PO ONE (09:55)
[2023-03-30] MEDS ORDERED: LORazepam 2 MG/ML VIAL IVP ONE (11:55)
[2023-03-30] MEDS ORDERED: NITROGLYCERIN 0.4 MG TAB SL ONE (15:00)
[2023-03-30] MEDS ORDERED: NITROGLYCERIN 0.4 MG TAB SL PRN (16:15)
[2023-03-30 17:27] VITALS: PULSE 61; RESP 18; O2SAT 97
[2023-03-30] MEDS ORDERED: LORazepam 1 MG TAB PO ONE ×2 (18:35→21:40)
[2023-03-30] MEDS ORDERED: LORazepam 1 MG TAB ONE (19:39)
[2023-03-30 20:00] VITALS: BP 122/87; PULSE 70; PULSE 71; RESP 18; TEMP 97.8; O2SAT 97
[2023-03-30] MEDS: LORazepam 2 MG/ML VIAL IVP PRN (23:30)
[2023-03-30] MEDS: ACETAMINOPHEN EXTRA STRENGTH 500 MG TAB PO PRN (23:36)
[2023-03-31] VITALS: BP 118/81; PULSE 71; PULSE 77; RESP 18; TEMP 97.6; O2SAT 96
[2023-03-31] MEDS ORDERED: ZOLPIDEM 10 MG TAB PO PRN (03:55)
[2023-03-31 04:00] VITALS: BP 117/78; PULSE 72; RESP 18; TEMP 97.9; O2SAT 96
[2023-03-31] MEDS: LORazepam 2 MG/ML VIAL IVP PRN ×3 (04:25→15:59)
[2023-03-31 08:00] VITALS: BP 114/76; PULSE 75; PULSE 87; RESP 16; TEMP 97.8; O2SAT 99
[2023-03-31] MEDS: SPIRONOLACTONE 25 MG TAB PO SCH ×2 (08:11→17:07)
[2023-03-31] MEDS: ACETAMINOPHEN EXTRA STRENGTH 500 MG TAB PO PRN (08:12)
[2023-03-31] MEDS: ATORVASTATIN 20 MG TAB PO SCH (08:12)
[2023-03-31] MEDS: FUROSEMIDE 40 MG TAB PO SCH ×2 (08:13→17:07)
[2023-03-31] MEDS: carvediloL 6.25 MG TAB PO SCH ×2 (08:13→21:29)
[2023-03-31] MEDS: ECOTRIN 81 MG TABEC PO SCH (08:13)
[2023-03-31] MEDS ORDERED: ASPIRIN 81 MG TAB.CHEW PO ONE (09:00)
[2023-03-31 12:00] VITALS: BP 118/83; PULSE 66; PULSE 82; RESP 18; TEMP 97.3; O2SAT 100
[2023-03-31] MEDS ORDERED: ACETAMINOPHEN 325 MG TAB PO PRN (14:25)
[2023-03-31] MEDS ORDERED: DOCUSATE SODIUM 100 MG GELCAP PO PRN (14:25)
[2023-03-31] MEDS: MORPHINE SULFATE 2 MG/ML SYR IVP PRN ×2 (14:40→20:58)
[2023-03-31 16:00] VITALS: BP 116/80; PULSE 71; RESP 16; TEMP 97.8; O2SAT 100
[2023-03-31 20:00] VITALS: BP 130/79; PULSE 81; RESP 19; TEMP 98; O2SAT 100
[2023-04-01] MEDS: MORPHINE SULFATE 2 MG/ML SYR IVP PRN ×3 (01:44→12:23)
[2023-04-01 04:00] VITALS: BP 108/66; PULSE 83; RESP 17; TEMP 97.4; O2SAT 97
[2023-04-01 08:00] VITALS: BP 117/83; PULSE 74; RESP 18; TEMP 97.8; O2SAT 99
[2023-04-01 08:38] LABS: BASOPHILS % (AUTO) 0.8 % (0.0-2.0); EOSINOPHILS # (AUTO) 0.1 K/uL (0-0.4); HEMATOCRIT 32.1 % (36-48); HEMOGLOBIN 10.6 g/dL (12.0-16.0); LYMPHOCYTES # (AUTO) 1.9 K/uL (2.5-16.5); LYMPHOCYTES % (AUTO) 36.7 % (20.5-51.1); MEAN CORPUSCULAR HEMOGLOBIN 29 pg (27-31); MEAN CORPUSCULAR HGB CONC 33 g/dL (33-37); MEAN CORPUSCULAR VOLUME 86.3 fL (80-94); MONOCYTES # (AUTO) 0.8 K/uL (0.8-1.0); MONOCYTES % (AUTO) 16.2 % (1.7-9.3); NEUTROPHILS # (AUTO) 2.3 K/uL (1.8-7.7); NEUTROPHILS % (AUTO) 44.3 % (42.2-75.2); PLATELET COUNT (AUTO) 187 K/uL (140-450); RED BLOOD CELL COUNT(AUTO) 3.72 MIL/uL (4.20-5.40); RED CELL DISTRIBUTION WIDTH 14.8 % (11.6-13.7); WHITE BLOOD COUNT (AUTO) 5.1 K/uL (4.8-10.8)
[2023-04-01 08:49] LABS: ALBUMIN 3.1 g/dL (3.4-5.0); ANION GAP 11.8 (8-16); CARBON DIOXIDE 27.1 mmol/L (21-32); CREATININE 1.1 mg/dL (0.6-1.3); POTASSIUM 3.9 mmol/L (3.5-5.1); TOTAL BILIRUBIN 0.2 mg/dL (0.0-1.0); TOTAL PROTEIN, SERUM 6.6 g/dL (6.4-8.2)
[2023-04-01] MEDS: SPIRONOLACTONE 25 MG TAB PO SCH (08:53)
[2023-04-01] MEDS: ATORVASTATIN 20 MG TAB PO SCH (08:53)
[2023-04-01] MEDS: FUROSEMIDE 40 MG TAB PO SCH (08:53)
[2023-04-01] MEDS: ECOTRIN 81 MG TABEC PO SCH (08:54)
[2023-04-01] MEDS: carvediloL 6.25 MG TAB PO SCH (08:54)
[2023-04-01] MEDS: LORazepam 2 MG/ML VIAL IVP PRN ×2 (10:34→14:40)
[2023-04-01 11:30] VITALS: PULSE 82
[2023-04-01 14:51] VITALS: BP 117/83; PULSE 74; RESP 18; TEMP 97.8
== END 2023-04-01 15:40 | disposition home or self-care (01) | DRG 198 ==
LOC: MED 07:51 → MTU 14:52 → MMU 16:46
PROVIDERS: ADMIT Family Medicine; ATTEND Family Medicine
DX: I24.89 Other forms of acute ischemic heart disease (principal); I42.9 Cardiomyopathy, unspecified; I50.22 Chronic systolic (congestive) heart failure; I11.0 Hypertensive heart disease with heart failure; F10.10 Alcohol abuse, uncomplicated; Y90.9 Presence of alcohol in blood, level not specified; F15.10 Other stimulant abuse, uncomplicated; J44.9 Chronic obstructive pulmonary disease, unspecified; Z88.0 Allergy status to penicillin; Z79.82 Long term (current) use of aspirin; Z86.73 Personal history of transient ischemic attack (TIA), and cerebral infarction without residual deficits; Z88.8 Allergy status to other drugs, medicaments and biological substances; Z79.899 Other long term (current) drug therapy; Z79.891 Long term (current) use of opiate analgesic; Z82.49 Family history of ischemic heart disease and other diseases of the circulatory system; Z82.3 Family history of stroke
CPT/HCPCS: 36415; 71045; 80053; 83880; 84484; 85025; 85610; 85730; 87081; 93005; 96372; 96374; 99285; J1885; J2060; J2270

== ENCOUNTER 2023-04-06 05:15 | Inpatient (IN) | payer MEDICAID ==
[~2023-04-06] VITALS: Ht 157.5 cm; Wt 79.8 kg
[2023-04-06 05:15] VITALS: BP 125/74; PULSE 76; RESP 16; TEMP 97.6; O2SAT 97
[~2023-04-06 05:15] MED LIST changes: +CYCL-711 PO; +MELO-174 PO
[2023-04-06 06:12] LABS: BASOPHILS # (AUTO) 0.1 K/uL (0.00-0.22); BASOPHILS % (AUTO) 1.2 % (0.0-2.0); EOSINOPHILS # (AUTO) 0.1 K/uL (0-0.4); EOSINOPHILS % (AUTO) 1.8 % (0.0-4.0); HEMATOCRIT 32.7 % (36-48); HEMOGLOBIN 10.7 g/dL (12.0-16.0); LYMPHOCYTES # (AUTO) 2.2 K/uL (2.5-16.5); LYMPHOCYTES % (AUTO) 35.6 % (20.5-51.1); MEAN CORPUSCULAR HEMOGLOBIN 28 pg (27-31); MEAN CORPUSCULAR HGB CONC 33 g/dL (33-37); MEAN CORPUSCULAR VOLUME 86.9 fL (80-94); NEUTROPHILS # (AUTO) 2.8 K/uL (1.8-7.7); NEUTROPHILS % (AUTO) 45.4 % (42.2-75.2); PLATELET COUNT (AUTO) 208 K/uL (140-450); RED BLOOD CELL COUNT(AUTO) 3.76 MIL/uL (4.20-5.40); RED CELL DISTRIBUTION WIDTH 14.9 % (11.6-13.7); WHITE BLOOD COUNT (AUTO) 6.2 K/uL (4.8-10.8)
[2023-04-06 06:23] LABS: ALBUMIN 3.3 g/dL (3.4-5.0); ANION GAP 12.2 (8-16); CALCIUM 8.2 mg/dL (8.5-10.1); CARBON DIOXIDE 25.5 mmol/L (21-32); CREATININE 1.1 mg/dL (0.6-1.3); POTASSIUM 3.7 mmol/L (3.5-5.1); TOTAL BILIRUBIN 0.3 mg/dL (0.0-1.0)
[2023-04-06] MEDS ORDERED: MORPHINE SULFATE 4 MG/ML SYR IVP ONE (06:40)
[2023-04-06] MEDS ORDERED: ACETAMINOPHEN 325 MG TAB PO PRN (09:25)
[2023-04-06] MEDS ORDERED: CYCLOBENZAPRINE 10 MG TAB PO PRN (09:25)
[2023-04-06] MEDS ORDERED: ONDANSETRON 4 MG/2 ML VIAL IVP PRN (09:25)
[2023-04-06] MEDS ORDERED: KETOROLAC 30 MG/ML VIAL IVP SCH (12:00)
[2023-04-06 16:00] VITALS: BP 125/76; PULSE 100; RESP 16; TEMP 208.4; O2SAT 99
[2023-04-06] MEDS: LORazepam 2 MG/ML VIAL IVP PRN (16:59)
[2023-04-06] MEDS ORDERED: traZODone 50 MG TAB PO PRN ×2 (19:55→20:25)
[2023-04-06 20:00] VITALS: BP 118/69; PULSE 72; RESP 18; TEMP 97.8; O2SAT 97
[2023-04-06] MEDS: carvediloL 6.25 MG TAB PO SCH (20:25)
[2023-04-06] MEDS: FUROSEMIDE 40 MG TAB PO SCH (20:26)
[2023-04-06] MEDS: SPIRONOLACTONE 25 MG TAB PO SCH (20:26)
[2023-04-07] VITALS: BP 118/69; PULSE 72; RESP 18; TEMP 97.8; O2SAT 97
[2023-04-07] MEDS: LORazepam 2 MG/ML VIAL IVP PRN ×2 (00:17→11:18)
[2023-04-07] MEDS: HYDROcodone/APAP 5/325 MG 1 TAB TAB PO PRN ×2 (04:52→11:20)
[2023-04-07 07:21] LABS: BASOPHILS % (AUTO) 0.8 % (0.0-2.0); EOSINOPHILS # (AUTO) 0.1 K/uL (0-0.4); EOSINOPHILS % (AUTO) 2.1 % (0.0-4.0); HEMATOCRIT 32.9 % (36-48); HEMOGLOBIN 10.7 g/dL (12.0-16.0); LYMPHOCYTES # (AUTO) 1.7 K/uL (2.5-16.5); MEAN CORPUSCULAR HEMOGLOBIN 28 pg (27-31); MEAN CORPUSCULAR HGB CONC 33 g/dL (33-37); MEAN CORPUSCULAR VOLUME 86.5 fL (80-94); MONOCYTES # (AUTO) 0.6 K/uL (0.8-1.0); MONOCYTES % (AUTO) 14.8 % (1.7-9.3); NEUTROPHILS # (AUTO) 1.8 K/uL (1.8-7.7); NEUTROPHILS % (AUTO) 43.3 % (42.2-75.2); PLATELET COUNT (AUTO) 193 K/uL (140-450); RED CELL DISTRIBUTION WIDTH 14.8 % (11.6-13.7); WHITE BLOOD COUNT (AUTO) 4.3 K/uL (4.8-10.8)
[2023-04-07 07:23] LABS: CALCIUM 8.3 mg/dL (8.5-10.1); CARBON DIOXIDE 23.8 mmol/L (21-32); POTASSIUM 3.8 mmol/L (3.5-5.1)
[2023-04-07 08:00] VITALS: BP 137/69; PULSE 58; RESP 18; TEMP 98; O2SAT 99
[2023-04-07] MEDS: SPIRONOLACTONE 25 MG TAB PO SCH (08:21)
[2023-04-07] MEDS: carvediloL 6.25 MG TAB PO SCH (08:22)
[2023-04-07] MEDS: FUROSEMIDE 40 MG TAB PO SCH (08:23)
[2023-04-07] MEDS ORDERED: ESCITALOPRAM 20 MG TAB PO SCH (09:00)
[2023-04-07] MEDS ORDERED: NON-FORMULARY ITEM (Escitalopram Oxalate (Escitalopram Oxalate) 1 TAB) PO SCH (09:00)
[2023-04-07] MEDS ORDERED: MELOXICAM PO SCH (09:00)
[2023-04-07] MEDS ORDERED: ATORVASTATIN 20 MG TAB PO SCH (09:00)
[2023-04-07] MEDS ORDERED: ECOTRIN 81 MG TABEC PO SCH (09:00)
[2023-04-07] MEDS ORDERED: LOSARTAN 25 MG TAB PO SCH (09:00)
[2023-04-07] MEDS ORDERED: CELECOXIB 100 MG CAP PO SCH (09:00)
[2023-04-07] MEDS ORDERED: MELO-174 PO (13:00)
[2023-04-07 14:02] VITALS: BP 105/77; PULSE 71; RESP 18; TEMP 96.8
== END 2023-04-07 14:00 | disposition home or self-care (01) | DRG 198 ==
LOC: MED 05:15 → MTU 07:38 → MIC 11:39 → MTU 13:01
PROVIDERS: ADMIT Preventive Medicine Preventive Medicine/Occupational Environmental Medicine; ATTEND Preventive Medicine Preventive Medicine/Occupational Environmental Medicine
DX: I25.5 Ischemic cardiomyopathy (principal); E44.1 Mild protein-calorie malnutrition; I11.0 Hypertensive heart disease with heart failure; I50.22 Chronic systolic (congestive) heart failure; I24.89 Other forms of acute ischemic heart disease; E83.51 Hypocalcemia; I25.10 Atherosclerotic heart disease of native coronary artery without angina pectoris; D64.9 Anemia, unspecified; R79.89 Other specified abnormal findings of blood chemistry; F15.10 Other stimulant abuse, uncomplicated; J44.9 Chronic obstructive pulmonary disease, unspecified; E78.5 Hyperlipidemia, unspecified; Z86.73 Personal history of transient ischemic attack (TIA), and cerebral infarction without residual deficits; Z87.891 Personal history of nicotine dependence; Z91.148 Patient's other noncompliance with medication regimen for other reason; Z88.0 Allergy status to penicillin; Z88.8 Allergy status to other drugs, medicaments and biological substances; Z79.899 Other long term (current) drug therapy; Z68.32 Body mass index [BMI] 32.0-32.9, adult
CPT/HCPCS: 36415; 71045; 80048; 80053; 83880; 84484; 85025; 87081; 93005; 96374; 96375; 99285; J1885; J2060; J2270

== ENCOUNTER 2023-04-18 06:32 | Emergency (ER) | payer MEDICAID ==
[~2023-04-18] VITALS: Ht 157.5 cm; Wt 85.7 kg
[2023-04-18 06:35] VITALS: BP 140/90; PULSE 90; RESP 18; TEMP 97.8; O2SAT 100
[2023-04-18 06:58] LABS: BASOPHILS % (AUTO) 0.8 % (0.0-2.0); EOSINOPHILS # (AUTO) 0.1 K/uL (0-0.4); EOSINOPHILS % (AUTO) 2.5 % (0.0-4.0); HEMATOCRIT 34.7 % (36-48); HEMOGLOBIN 11.4 g/dL (12.0-16.0); LYMPHOCYTES # (AUTO) 2.4 K/uL (2.5-16.5); LYMPHOCYTES % (AUTO) 41.6 % (20.5-51.1); MEAN CORPUSCULAR HEMOGLOBIN 29 pg (27-31); MEAN CORPUSCULAR HGB CONC 33 g/dL (33-37); MEAN CORPUSCULAR VOLUME 86.4 fL (80-94); MONOCYTES # (AUTO) 0.6 K/uL (0.8-1.0); MONOCYTES % (AUTO) 9.5 % (1.7-9.3); NEUTROPHILS # (AUTO) 2.7 K/uL (1.8-7.7); NEUTROPHILS % (AUTO) 45.6 % (42.2-75.2); PLATELET COUNT (AUTO) 225 K/uL (140-450); RED BLOOD CELL COUNT(AUTO) 4.01 MIL/uL (4.20-5.40); RED CELL DISTRIBUTION WIDTH 15.5 % (11.6-13.7); WHITE BLOOD COUNT (AUTO) 5.9 K/uL (4.8-10.8)
[2023-04-18 07:18] LABS: ALBUMIN 3.4 g/dL (3.4-5.0); ANION GAP 12.1 (8-16); CALCIUM 8.4 mg/dL (8.5-10.1); CARBON DIOXIDE 25.1 mmol/L (21-32); POTASSIUM 4.2 mmol/L (3.5-5.1); TOTAL BILIRUBIN 0.2 mg/dL (0.0-1.0); TOTAL PROTEIN, SERUM 7.4 g/dL (6.4-8.2)
[2023-04-18] MEDS ORDERED: KETOROLAC 60 MG/2 ML VIAL IM ONE (07:25)
[2023-04-18 08:44] LABS: APPEARANCE,URINE CLEAR (CLEAR); BILIRUBIN,URINE NEGATIVE (NEGATIVE); BLOOD, URINE 2+ (NEGATIVE); COLOR,URINE YELLOW (YELLOW); LEUKOCYTE ESTERASE ,URINE TRACE (NEGATIVE); NITRITE, URINE NEGATIVE (NEGATIVE); PROTEIN,URINE NEGATIVE (NEGATIVE); UGLUCOSE NEGATIVE (NEGATIVE); UROBILINOGEN,URINE 0.2 EU/dL (0.2 - 1)
[2023-04-18 09:05] LABS: BACTERIA,URINE FEW /HPF (None Seen); SQUAMOUS EPITHELIAL CELL,UR 0-3 (FEW) /LPF (0-3 (FEW))
[2023-04-18] MEDS ORDERED: CIPR500T4 PO (09:12)
[2023-04-18] MEDS ORDERED: IBUP-2213 PO (09:12)
[2023-04-18 10:16] VITALS: BP 129/97; PULSE 87; RESP 32; TEMP 97.8; O2SAT 100
== END 2023-04-18 10:16 | disposition home or self-care (01) ==
LOC: MED 06:32
DX: G89.29 Other chronic pain (principal); R07.89 Other chest pain; N39.0 Urinary tract infection, site not specified; I11.0 Hypertensive heart disease with heart failure; I50.9 Heart failure, unspecified; F17.200 Nicotine dependence, unspecified, uncomplicated; Z86.73 Personal history of transient ischemic attack (TIA), and cerebral infarction without residual deficits; Z98.890 Other specified postprocedural states; Z79.899 Other long term (current) drug therapy; Z79.1 Long term (current) use of non-steroidal anti-inflammatories (NSAID); Z79.2 Long term (current) use of antibiotics; Z79.82 Long term (current) use of aspirin; Z88.8 Allergy status to other drugs, medicaments and biological substances; Z88.0 Allergy status to penicillin
CPT/HCPCS: 36415; 71045; 80053; 81001; 83880; 84484; 85025; 87086; 93005; 96372; 99285; J1885

== ENCOUNTER 2023-04-19 06:44 | Inpatient (IN) | payer MEDICAID ==
[~2023-04-19] VITALS: Ht 157.5 cm; Wt 81.2 kg
[~2023-04-19 06:44] MED LIST changes: +CIPR500T4 PO; +IBUP-2213 PO
[2023-04-19 06:50] VITALS: BP 131/98; PULSE 87; RESP 17; TEMP 98; O2SAT 99
[2023-04-19] MEDS ORDERED: ALUMINUM HYD/MAG/SIMETHICONE 30 ML UDC PO ONE (07:30)
[2023-04-19 08:14] LABS: BASOPHILS % (AUTO) 0.9 % (0.0-2.0); EOSINOPHILS # (AUTO) 0.1 K/uL (0-0.4); HEMATOCRIT 34.1 % (36-48); HEMOGLOBIN 11.2 g/dL (12.0-16.0); LYMPHOCYTES # (AUTO) 1.7 K/uL (2.5-16.5); LYMPHOCYTES % (AUTO) 31.8 % (20.5-51.1); MEAN CORPUSCULAR HEMOGLOBIN 28 pg (27-31); MEAN CORPUSCULAR HGB CONC 33 g/dL (33-37); MEAN CORPUSCULAR VOLUME 86.6 fL (80-94); MONOCYTES # (AUTO) 0.7 K/uL (0.8-1.0); MONOCYTES % (AUTO) 12.3 % (1.7-9.3); NEUTROPHILS # (AUTO) 2.8 K/uL (1.8-7.7); PLATELET COUNT (AUTO) 212 K/uL (140-450); RED BLOOD CELL COUNT(AUTO) 3.93 MIL/uL (4.20-5.40); RED CELL DISTRIBUTION WIDTH 15.5 % (11.6-13.7); WHITE BLOOD COUNT (AUTO) 5.3 K/uL (4.8-10.8)
[2023-04-19 08:27] LABS: ALBUMIN 3.2 g/dL (3.4-5.0); ANION GAP 12.8 (8-16); CALCIUM 8.3 mg/dL (8.5-10.1); CARBON DIOXIDE 25.2 mmol/L (21-32); TOTAL BILIRUBIN 0.4 mg/dL (0.0-1.0); TOTAL PROTEIN, SERUM 6.9 g/dL (6.4-8.2)
[2023-04-19 08:30] LABS: LIPASE 9 U/L (16-77)
[2023-04-19] MEDS ORDERED: FUROSEMIDE 40 MG/4 ML VIAL IVP ONE (08:50)
[2023-04-19] MEDS ORDERED: ASPIRIN 81 MG TAB.CHEW PO ONE (08:50)
[2023-04-19] MEDS ORDERED: LORazepam 1 MG TAB PO ONE (08:55)
[2023-04-19] MEDS ORDERED: MAG SULF 2000 MG/WATER PREMIX 50 ML IV PRN (09:50)
[2023-04-19] MEDS ORDERED: KCL 20 MEQ IN 100 mL PREMIX 200 ML IV PRN (09:50)
[2023-04-19] MEDS ORDERED: HYDROcodone/APAP 5/325 MG 1 TAB TAB PO PRN (09:50)
[2023-04-19] MEDS ORDERED: ONDANSETRON 4 MG/2 ML VIAL IVP PRN (09:50)
[2023-04-19] MEDS ORDERED: ACETAMINOPHEN 325 MG TAB PO PRN (09:50)
[2023-04-19] MEDS ORDERED: MAGNESIUM OXIDE 400 MG TAB PO PRN (09:50)
[2023-04-19] MEDS ORDERED: POTASSIUM CHLORIDE 10 MEQ TABER PO PRN (09:50)
[2023-04-19] MEDS: MORPHINE SULFATE 4 MG/ML SYR IVP PRN ×3 (12:10→21:57)
[2023-04-19] MEDS: FUROSEMIDE 40 MG/4 ML VIAL IVP SCH ×2 (15:24→21:16)
[2023-04-19] MEDS: SPIRONOLACTONE 25 MG TAB PO SCH (16:51)
[2023-04-19 20:40] VITALS: PULSE 72; RESP 18; O2SAT 98
[2023-04-19] MEDS: carvediloL 6.25 MG TAB PO SCH (21:00)
[2023-04-19 21:08] VITALS: BP 105/72; PULSE 68; PULSE 72; RESP 18; TEMP 98.2; O2SAT 98
[2023-04-20] VITALS: BP 96/58; PULSE 68; PULSE 71; RESP 17; TEMP 98.6; O2SAT 100
[2023-04-20] MEDS: MELATONIN 3 MG TAB PO PRN ×2 (00:28→21:12)
[2023-04-20] MEDS: MORPHINE SULFATE 4 MG/ML SYR IVP PRN ×5 (02:08→21:14)
[2023-04-20 04:00] VITALS: BP 99/64; PULSE 62; PULSE 72; RESP 17; TEMP 97.5; O2SAT 95
[2023-04-20] MEDS: FUROSEMIDE 40 MG/4 ML VIAL IVP SCH ×3 (05:00→21:19)
[2023-04-20 07:07] LABS: BASOPHILS % (AUTO) 0.8 % (0.0-2.0); EOSINOPHILS # (AUTO) 0.1 K/uL (0-0.4); EOSINOPHILS % (AUTO) 2.2 % (0.0-4.0); HEMATOCRIT 34.5 % (36-48); HEMOGLOBIN 11.2 g/dL (12.0-16.0); LYMPHOCYTES # (AUTO) 2.2 K/uL (2.5-16.5); LYMPHOCYTES % (AUTO) 41.9 % (20.5-51.1); MEAN CORPUSCULAR HEMOGLOBIN 28 pg (27-31); MEAN CORPUSCULAR HGB CONC 33 g/dL (33-37); MEAN CORPUSCULAR VOLUME 87.1 fL (80-94); MONOCYTES # (AUTO) 0.8 K/uL (0.8-1.0); MONOCYTES % (AUTO) 15.8 % (1.7-9.3); NEUTROPHILS # (AUTO) 2.1 K/uL (1.8-7.7); NEUTROPHILS % (AUTO) 39.3 % (42.2-75.2); PLATELET COUNT (AUTO) 218 K/uL (140-450); RED BLOOD CELL COUNT(AUTO) 3.96 MIL/uL (4.20-5.40); RED CELL DISTRIBUTION WIDTH 15.2 % (11.6-13.7); WHITE BLOOD COUNT (AUTO) 5.3 K/uL (4.8-10.8)
[2023-04-20 07:32] LABS: PHOSPHORUS 4.8 mg/dL (2.5-4.9)
[2023-04-20 08:00] VITALS: BP 112/80; PULSE 80; PULSE 86; RESP 19; TEMP 97.5; O2SAT 97
[2023-04-20] MEDS: ATORVASTATIN 20 MG TAB PO SCH (08:44)
[2023-04-20] MEDS: carvediloL 6.25 MG TAB PO SCH ×2 (08:45→21:19)
[2023-04-20] MEDS: LOSARTAN 25 MG TAB PO SCH (08:45)
[2023-04-20] MEDS: ASPIRIN 81 MG TAB.CHEW PO SCH (08:45)
[2023-04-20] MEDS: SPIRONOLACTONE 25 MG TAB PO SCH ×2 (08:46→16:53)
[2023-04-20 08:54] LABS: CALCIUM 9.3 mg/dL (8.5-10.1); CARBON DIOXIDE 24.7 mmol/L (21-32); CREATININE 1.3 mg/dL (0.6-1.3); POTASSIUM 3.7 mmol/L (3.5-5.1)
[2023-04-20 12:00] VITALS: BP 109/67; PULSE 60; PULSE 68; RESP 19; TEMP 97; O2SAT 98
[2023-04-20] MEDS: LORazepam 1 MG TAB PO PRN ×2 (14:18→21:11)
[2023-04-20 16:00] VITALS: BP 100/67; PULSE 67; PULSE 69; TEMP 97.1; O2SAT 98
[2023-04-20 20:00] VITALS: BP 110/65; PULSE 67; PULSE 70; RESP 16; TEMP 97.8; O2SAT 96
[2023-04-21] VITALS (8 sets, daily range): BP systolic 92–128; BP diastolic 56–86; PULSE 67–102; RESP 16–20; TEMP 96.3–98.8; O2SAT 96–100
[2023-04-21] MEDS: FUROSEMIDE 40 MG/4 ML VIAL IVP SCH ×2 (04:26→12:08)
[2023-04-21] MEDS: MORPHINE SULFATE 4 MG/ML SYR IVP PRN ×3 (05:04→13:00)
[2023-04-21 07:08] LABS: BASOPHILS % (AUTO) 0.6 % (0.0-2.0); EOSINOPHILS # (AUTO) 0.2 K/uL (0-0.4); HEMATOCRIT 33.9 % (36-48); LYMPHOCYTES # (AUTO) 1.8 K/uL (2.5-16.5); LYMPHOCYTES % (AUTO) 33.5 % (20.5-51.1); MEAN CORPUSCULAR HEMOGLOBIN 28 pg (27-31); MEAN CORPUSCULAR HGB CONC 33 g/dL (33-37); MEAN CORPUSCULAR VOLUME 87.2 fL (80-94); MONOCYTES # (AUTO) 0.9 K/uL (0.8-1.0); MONOCYTES % (AUTO) 17.6 % (1.7-9.3); NEUTROPHILS # (AUTO) 2.4 K/uL (1.8-7.7); NEUTROPHILS % (AUTO) 45.3 % (42.2-75.2); PLATELET COUNT (AUTO) 207 K/uL (140-450); RED BLOOD CELL COUNT(AUTO) 3.89 MIL/uL (4.20-5.40); RED CELL DISTRIBUTION WIDTH 15.6 % (11.6-13.7); WHITE BLOOD COUNT (AUTO) 5.4 K/uL (4.8-10.8)
[2023-04-21 07:15] LABS: ANION GAP 10.8 (8-16); CALCIUM 8.7 mg/dL (8.5-10.1); CREATININE 1.5 mg/dL (0.6-1.3); POTASSIUM 3.8 mmol/L (3.5-5.1)
[2023-04-21 07:35] LABS: PHOSPHORUS 5.6 mg/dL (2.5-4.9)
[2023-04-21] MEDS: SPIRONOLACTONE 25 MG TAB PO SCH ×2 (08:37→17:00)
[2023-04-21] MEDS: carvediloL 6.25 MG TAB PO SCH ×2 (08:37→21:00)
[2023-04-21] MEDS: ASPIRIN 81 MG TAB.CHEW PO SCH (08:37)
[2023-04-21] MEDS: LOSARTAN 25 MG TAB PO SCH (08:38)
[2023-04-21] MEDS: ATORVASTATIN 20 MG TAB PO SCH (08:38)
[2023-04-21] MEDS: LORazepam 1 MG TAB PO PRN (12:08)
[2023-04-22] VITALS (7 sets, daily range): BP systolic 92–128; BP diastolic 64–88; PULSE 62–98; RESP 17–20; TEMP 97.1–98.1; O2SAT 96–99
[2023-04-22] MEDS: MORPHINE SULFATE 4 MG/ML SYR IVP PRN ×3 (01:24→13:21)
[2023-04-22] MEDS: MELATONIN 3 MG TAB PO PRN (02:29)
[2023-04-22] MEDS: LORazepam 1 MG TAB PO PRN (04:01)
[2023-04-22 06:30] LABS: BASOPHILS % (AUTO) 0.6 % (0.0-2.0); EOSINOPHILS # (AUTO) 0.2 K/uL (0-0.4); EOSINOPHILS % (AUTO) 3.5 % (0.0-4.0); HEMATOCRIT 32.8 % (36-48); HEMOGLOBIN 10.9 g/dL (12.0-16.0); LYMPHOCYTES # (AUTO) 2.3 K/uL (2.5-16.5); LYMPHOCYTES % (AUTO) 36.7 % (20.5-51.1); MEAN CORPUSCULAR HEMOGLOBIN 29 pg (27-31); MEAN CORPUSCULAR HGB CONC 33 g/dL (33-37); MEAN CORPUSCULAR VOLUME 86.5 fL (80-94); MONOCYTES % (AUTO) 16.2 % (1.7-9.3); NEUTROPHILS # (AUTO) 2.7 K/uL (1.8-7.7); PLATELET COUNT (AUTO) 209 K/uL (140-450); RED BLOOD CELL COUNT(AUTO) 3.79 MIL/uL (4.20-5.40); RED CELL DISTRIBUTION WIDTH 15.5 % (11.6-13.7); WHITE BLOOD COUNT (AUTO) 6.4 K/uL (4.8-10.8)
[2023-04-22 07:10] LABS: ANION GAP 11.7 (8-16); CARBON DIOXIDE 26.4 mmol/L (21-32); CREATININE 1.2 mg/dL (0.6-1.3); POTASSIUM 4.1 mmol/L (3.5-5.1)
[2023-04-22 07:17] LABS: MAGNESIUM 2.1 mg/dL (1.8-2.4); PHOSPHORUS 3.8 mg/dL (2.5-4.9)
[2023-04-22] MEDS: ATORVASTATIN 20 MG TAB PO SCH (09:01)
[2023-04-22] MEDS: carvediloL 6.25 MG TAB PO SCH (09:01)
[2023-04-22] MEDS: ASPIRIN 81 MG TAB.CHEW PO SCH (09:01)
[2023-04-22] MEDS: SPIRONOLACTONE 25 MG TAB PO SCH (09:01)
[2023-04-22] MEDS: LOSARTAN 25 MG TAB PO SCH (09:01)
[2023-04-22] MEDS ORDERED: FUROSEMIDE 40 MG/4 ML VIAL IVP SCH (10:45)
[2023-04-22] MEDS ORDERED: MELO-174 PO (11:46)
[2023-04-22] MEDS ORDERED: FURO-570 PO (11:46)
[2023-05-08] MEDS ORDERED: FURO-570 PO (11:42)
[2023-05-08] MEDS ORDERED: ACET-8905 PO (11:42)
[2023-05-08] MEDS ORDERED: ATOR20TA40 PO (11:42)
[2023-05-08] MEDS ORDERED: SPIR25TA21 PO (11:42)
[2023-05-08] MEDS ORDERED: LOSA-269 PO (11:42)
[2023-05-08] MEDS ORDERED: ATI.5 PO (11:42)
[2023-05-08] MEDS ORDERED: ASPI-1856 PO (11:42)
[2023-05-08] MEDS ORDERED: PRED20TA5 PO (11:42)
[2023-05-08] MEDS ORDERED: CARV6.25 PO (11:42)
[2023-05-08] MEDS ORDERED: ESCI5TAB18 PO (11:42)
== END 2023-04-22 13:20 | disposition home or self-care (01) | DRG 194 ==
LOC: MED 06:44 → MTU 09:53 → OBSVTOIN 09:53 → MTU 17:55
PROVIDERS: ADMIT Hospitalist; ATTEND Hospitalist
DX: I11.0 Hypertensive heart disease with heart failure (principal); N17.0 Acute kidney failure with tubular necrosis; I21.A1 Myocardial infarction type 2; E44.1 Mild protein-calorie malnutrition; R64 Cachexia; Z88.0 Allergy status to penicillin; I50.23 Acute on chronic systolic (congestive) heart failure; F12.10 Cannabis abuse, uncomplicated; J44.9 Chronic obstructive pulmonary disease, unspecified; Z79.82 Long term (current) use of aspirin; Z79.899 Other long term (current) drug therapy; Z88.8 Allergy status to other drugs, medicaments and biological substances; Z91.148 Patient's other noncompliance with medication regimen for other reason; Z82.49 Family history of ischemic heart disease and other diseases of the circulatory system; Z71.51 Drug abuse counseling and surveillance of drug abuser; Z86.73 Personal history of transient ischemic attack (TIA), and cerebral infarction without residual deficits; Z68.32 Body mass index [BMI] 32.0-32.9, adult; E83.51 Hypocalcemia
CPT/HCPCS: 36415; 71045; 80048; 80053; 83690; 83735; 83880; 84100; 84484; 85025; 87081; 93005; 99285; J1644; J1940; J2270; J2405; Q0092

== ENCOUNTER 2023-05-04 09:02 | Emergency (ER) | payer MEDICAID ==
[~2023-05-04] VITALS: Ht 175.3 cm; Wt 81.6 kg
[~2023-05-04 09:02] MED LIST changes: -CIPR500T4 PO; -IBUP-2213 PO
[2023-05-04 09:19] VITALS: BP 140/94; PULSE 112; RESP 20; TEMP 97; O2SAT 97
[2023-05-04] MEDS ORDERED: KETOROLAC 60 MG/2 ML VIAL IM ONE (09:25)
[2023-05-04 09:46] LABS: BASOPHILS # (AUTO) 0.1 K/uL (0.00-0.22); BASOPHILS % (AUTO) 0.8 % (0.0-2.0); EOSINOPHILS # (AUTO) 0.1 K/uL (0-0.4); EOSINOPHILS % (AUTO) 1.3 % (0.0-4.0); HEMOGLOBIN 10.8 g/dL (12.0-16.0); LYMPHOCYTES # (AUTO) 0.7 K/uL (2.5-16.5); LYMPHOCYTES % (AUTO) 10.6 % (20.5-51.1); MEAN CORPUSCULAR HEMOGLOBIN 29 pg (27-31); MEAN CORPUSCULAR HGB CONC 33 g/dL (33-37); MEAN CORPUSCULAR VOLUME 88.4 fL (80-94); MONOCYTES # (AUTO) 0.7 K/uL (0.8-1.0); MONOCYTES % (AUTO) 9.9 % (1.7-9.3); NEUTROPHILS # (AUTO) 5.4 K/uL (1.8-7.7); NEUTROPHILS % (AUTO) 77.4 % (42.2-75.2); PLATELET COUNT (AUTO) 206 K/uL (140-450); RED BLOOD CELL COUNT(AUTO) 3.74 MIL/uL (4.20-5.40); RED CELL DISTRIBUTION WIDTH 15.7 % (11.6-13.7)
[2023-05-04 10:00] LABS: ALBUMIN 3.4 g/dL (3.4-5.0); ANION GAP 14.7 (8-16); CALCIUM 8.2 mg/dL (8.5-10.1); CARBON DIOXIDE 24.8 mmol/L (21-32); CREATININE 1.2 mg/dL (0.6-1.3); POTASSIUM 3.5 mmol/L (3.5-5.1); TOTAL BILIRUBIN 0.5 mg/dL (0.0-1.0); TOTAL PROTEIN, SERUM 7.1 g/dL (6.4-8.2)
[2023-05-04] MEDS ORDERED: IBUP-2213 PO (10:30)
[2023-05-04] MEDS ORDERED: PRED20TA5 PO (10:30)
[2023-05-04 10:35] VITALS: BP 140/94; PULSE 89; RESP 20; TEMP 97; O2SAT 97
[2023-05-08] MEDS ORDERED: FURO-570 PO (11:42)
[2023-05-08] MEDS ORDERED: PRED20TA5 PO (11:42)
[2023-05-08] MEDS ORDERED: ATI.5 PO (11:42)
[2023-05-08] MEDS ORDERED: ESCI5TAB18 PO (11:42)
[2023-05-08] MEDS ORDERED: SPIR25TA21 PO (11:42)
[2023-05-08] MEDS ORDERED: CARV6.25 PO (11:42)
[2023-05-08] MEDS ORDERED: ACET-8905 PO (11:42)
[2023-05-08] MEDS ORDERED: ATOR20TA40 PO (11:42)
[2023-05-08] MEDS ORDERED: LOSA-269 PO (11:42)
[2023-05-08] MEDS ORDERED: ASPI-1856 PO (11:42)
== END 2023-05-04 10:37 | disposition home or self-care (01) ==
LOC: MED 09:02
DX: R07.89 Other chest pain (principal); I11.9 Hypertensive heart disease without heart failure; Z86.73 Personal history of transient ischemic attack (TIA), and cerebral infarction without residual deficits; Z88.0 Allergy status to penicillin; Z88.8 Allergy status to other drugs, medicaments and biological substances; Z79.899 Other long term (current) drug therapy
CPT/HCPCS: 36415; 71045; 80053; 83880; 84484; 85025; 93005; 96372; 99285; J1885

== ENCOUNTER 2023-06-15 08:02 | Inpatient (IN) | payer MEDICAID, OTHER ==
[2023-06-15] VITALS: BP 111/79; PULSE 70; RESP 16; TEMP 97.4; O2SAT 93
[~2023-06-15] VITALS: Ht 167.6 cm; Wt 86.2 kg
[~2023-06-15 08:02] MED LIST changes: +ATI.5 PO; -MELO-174 PO; +PRED20TA5 PO
[2023-06-15 08:11] VITALS: BP 12/95; PULSE 58; RESP 20; TEMP 98; O2SAT 0
[2023-06-15 08:55] LABS: BASOPHILS % (AUTO) 0.6 % (0.0-2.0); EOSINOPHILS % (AUTO) 0.7 % (0.0-4.0); HEMATOCRIT 34.8 % (36-48); HEMOGLOBIN 11.5 g/dL (12.0-16.0); LYMPHOCYTES # (AUTO) 1.8 K/uL (2.5-16.5); LYMPHOCYTES % (AUTO) 41.1 % (20.5-51.1); MEAN CORPUSCULAR HEMOGLOBIN 30 pg (27-31); MEAN CORPUSCULAR HGB CONC 33 g/dL (33-37); MEAN CORPUSCULAR VOLUME 90.1 fL (80-94); MONOCYTES # (AUTO) 0.7 K/uL (0.8-1.0); MONOCYTES % (AUTO) 14.5 % (1.7-9.3); NEUTROPHILS # (AUTO) 1.9 K/uL (1.8-7.7); NEUTROPHILS % (AUTO) 43.1 % (42.2-75.2); PLATELET COUNT (AUTO) 239 K/uL (140-450); RED BLOOD CELL COUNT(AUTO) 3.86 MIL/uL (4.20-5.40); WHITE BLOOD COUNT (AUTO) 4.5 K/uL (4.8-10.8)
[2023-06-15 09:09] LABS: ANION GAP 10.6 (8-16); CALCIUM 8.4 mg/dL (8.5-10.1); POTASSIUM 3.6 mmol/L (3.5-5.1)
[2023-06-15] MEDS ORDERED: MORPHINE SULFATE 4 MG/ML SYR IVP ONE (09:10)
[2023-06-15] MEDS ORDERED: LORazepam 2 MG/ML VIAL IVP ONE (09:10)
[2023-06-15 09:17] LABS: PARTIAL THROMBOPLASTIN TIME 27.6 secs (22-35.6); PROTHROMBIN TIME 10.5 secs (10.8-13.4)
[2023-06-15 09:28] LABS: FLU A ANTIGEN negative (NEGATIVE); FLU B ANTIGEN NEGATIVE (NEGATIVE)
[2023-06-15] MEDS ORDERED: HEPARIN PER PHARMACY MC PRN ×2 (09:40→13:35)
[2023-06-15] MEDS ORDERED: ASPIRIN 325 MG TAB PO ONE (09:40)
[2023-06-15] MEDS: hePARIN / DEXT 5% PREMIX 250 ML IV SCH ×2 (10:47→11:08)
[2023-06-15] MEDS ORDERED: LOSA25TA32 PO (12:46)
[2023-06-15] MEDS ORDERED: FURO40TA9 PO (12:46)
[2023-06-15] MEDS ORDERED: MELO-174 PO (12:46)
[2023-06-15] MEDS ORDERED: CARV6.252 PO (12:46)
[2023-06-15] MEDS ORDERED: ATI.5 PO (12:46)
[2023-06-15] MEDS ORDERED: SPIR25TA20 PO (12:46)
[2023-06-15] MEDS ORDERED: HYDROcodone/APAP 5/325 MG 1 TAB TAB PO PRN (13:20)
[2023-06-15] MEDS ORDERED: NITROGLYCERIN 0.4 MG TAB SL PRN (13:20)
[2023-06-15] MEDS ORDERED: ONDANSETRON 4 MG/2 ML VIAL IVP PRN (13:20)
[2023-06-15] MEDS ORDERED: ZOLPIDEM 5 MG TAB PO PRN ×2 (13:20→13:40)
[2023-06-15] MEDS ORDERED: hePARIN / DEXT 5% PREMIX 250 ML IV SCH ×2 (13:35→17:00)
[2023-06-15 14:29] LABS: MAGNESIUM 1.8 mg/dL (1.8-2.4)
[2023-06-15] MEDS: LORazepam 1 MG TAB PO PRN ×2 (15:29→19:11)
[2023-06-15] MEDS: MORPHINE SULFATE 2 MG/ML SYR IVP PRN ×3 (15:30→22:00)
[2023-06-15] MEDS ORDERED: SIMVASTATIN 20 MG TAB PO SCH (21:00)
[2023-06-15] MEDS ORDERED: METOPROLOL 25 MG TAB PO SCH (21:00)
[2023-06-15 21:18] VITALS: BP 111/79; PULSE 60; PULSE 70; RESP 16; RESP 18; TEMP 97.4; O2SAT 93
[2023-06-15] MEDS: carvediloL 6.25 MG TAB PO SCH (21:54)
[2023-06-15] MEDS: SPIRONOLACTONE 25 MG TAB PO SCH (21:55)
[2023-06-16] MEDS: LORazepam 1 MG TAB PO PRN ×4 (00:23→20:25)
[2023-06-16 04:00] VITALS: BP 114/73; PULSE 60; RESP 18; TEMP 96.9; O2SAT 98
[2023-06-16 05:36] LABS: BASOPHILS % (AUTO) 0.7 % (0.0-2.0); EOSINOPHILS # (AUTO) 0.1 K/uL (0-0.4); EOSINOPHILS % (AUTO) 1.1 % (0.0-4.0); HEMATOCRIT 34.4 % (36-48); HEMOGLOBIN 11.2 g/dL (12.0-16.0); LYMPHOCYTES # (AUTO) 2.2 K/uL (2.5-16.5); LYMPHOCYTES % (AUTO) 41.8 % (20.5-51.1); MEAN CORPUSCULAR HEMOGLOBIN 30 pg (27-31); MEAN CORPUSCULAR HGB CONC 33 g/dL (33-37); MONOCYTES # (AUTO) 0.9 K/uL (0.8-1.0); MONOCYTES % (AUTO) 16.4 % (1.7-9.3); NEUTROPHILS # (AUTO) 2.1 K/uL (1.8-7.7); PLATELET COUNT (AUTO) 209 K/uL (140-450); RED BLOOD CELL COUNT(AUTO) 3.78 MIL/uL (4.20-5.40); RED CELL DISTRIBUTION WIDTH 16.1 % (11.6-13.7); WHITE BLOOD COUNT (AUTO) 5.2 K/uL (4.8-10.8)
[2023-06-16 06:11] LABS: ANION GAP 9.4 (8-16); CARBON DIOXIDE 30.1 mmol/L (21-32); POTASSIUM 3.5 mmol/L (3.5-5.1)
[2023-06-16 08:00] VITALS: BP 121/81; PULSE 60; PULSE 68; PULSE 70; RESP 20; TEMP 97.1; O2SAT 100; O2SAT 97
[2023-06-16] MEDS: DOCUSATE SODIUM 100 MG GELCAP PO SCH (08:59)
[2023-06-16] MEDS: LOSARTAN 25 MG TAB PO SCH (08:59)
[2023-06-16] MEDS: carvediloL 6.25 MG TAB PO SCH (08:59)
[2023-06-16] MEDS: ASPIRIN 81 MG TAB.CHEW PO SCH (08:59)
[2023-06-16] MEDS: SPIRONOLACTONE 25 MG TAB PO SCH ×2 (08:59→20:25)
[2023-06-16] MEDS ORDERED: FUROSEMIDE 40 MG/4 ML VIAL IVP SCH (09:00)
[2023-06-16] MEDS: MORPHINE SULFATE 2 MG/ML SYR IVP PRN ×3 (09:02→22:02)
[2023-06-16] MEDS ORDERED: CYCLOBENZAPRINE 10 MG TAB PO PRN (13:05)
[2023-06-16] MEDS ORDERED: ACETAMINOPHEN 325 MG TAB PO PRN (13:05)
[2023-06-16] MEDS ORDERED: BENZOCAINE/MENTHOL 1 LOZ MM PRN (13:10)
[2023-06-16] MEDS ORDERED: CLINICAL MONITORING MC PRN (14:10)
[2023-06-16] MEDS: FUROSEMIDE 40 MG/4 ML VIAL IVP SCH ×2 (14:12→20:25)
[2023-06-16] MEDS ORDERED: [UNRECOGNIZED DRUG - REMARK] MC PRN (14:15)
[2023-06-16 20:00] VITALS: BP 114/81; PULSE 74; RESP 16; TEMP 97.4; O2SAT 100; O2SAT 98
[2023-06-16] MEDS ORDERED: carvediloL 6.25 MG TAB PO SCH (21:00)
[2023-06-16 22:03] VITALS: BP 120/89; PULSE 72; RESP 18; TEMP 97.6; O2SAT 99
[2023-06-17 04:00] VITALS: BP 84/68; PULSE 74; RESP 16; TEMP 97.4; O2SAT 98
[2023-06-17] MEDS: FUROSEMIDE 40 MG/4 ML VIAL IVP SCH (05:00)
[2023-06-17 05:14] LABS: BASOPHILS % (AUTO) 0.7 % (0.0-2.0); EOSINOPHILS # (AUTO) 0.1 K/uL (0-0.4); EOSINOPHILS % (AUTO) 1.8 % (0.0-4.0); HEMATOCRIT 34.6 % (36-48); HEMOGLOBIN 11.4 g/dL (12.0-16.0); LYMPHOCYTES # (AUTO) 1.7 K/uL (2.5-16.5); LYMPHOCYTES % (AUTO) 34.2 % (20.5-51.1); MEAN CORPUSCULAR HEMOGLOBIN 30 pg (27-31); MEAN CORPUSCULAR HGB CONC 33 g/dL (33-37); MEAN CORPUSCULAR VOLUME 89.5 fL (80-94); MONOCYTES % (AUTO) 20.4 % (1.7-9.3); NEUTROPHILS # (AUTO) 2.1 K/uL (1.8-7.7); NEUTROPHILS % (AUTO) 42.9 % (42.2-75.2); PLATELET COUNT (AUTO) 233 K/uL (140-450); RED BLOOD CELL COUNT(AUTO) 3.87 MIL/uL (4.20-5.40); WHITE BLOOD COUNT (AUTO) 4.9 K/uL (4.8-10.8)
[2023-06-17 05:49] LABS: ANION GAP 10.5 (8-16); CALCIUM 8.9 mg/dL (8.5-10.1); CARBON DIOXIDE 32.6 mmol/L (21-32); CREATININE 1.2 mg/dL (0.6-1.3); POTASSIUM 3.1 mmol/L (3.5-5.1)
[2023-06-17] MEDS: LOSARTAN 25 MG TAB PO SCH (08:39)
[2023-06-17] MEDS: ASPIRIN 81 MG TAB.CHEW PO SCH (08:39)
[2023-06-17] MEDS: SPIRONOLACTONE 25 MG TAB PO SCH (08:40)
[2023-06-17] MEDS: DOCUSATE SODIUM 100 MG GELCAP PO SCH (08:41)
[2023-06-17] MEDS: MORPHINE SULFATE 2 MG/ML SYR IVP PRN (08:44)
[2023-06-17] MEDS ORDERED: ATORVASTATIN 20 MG TAB PO SCH (09:00)
== END 2023-06-17 11:35 | disposition home or self-care (01) | DRG 190 ==
LOC: MED 08:02 → MMU 13:20
PROVIDERS: ADMIT Student in an Organized Health Care Education/Training Program; ATTEND Student in an Organized Health Care Education/Training Program
DX: I21.4 Non-ST elevation (NSTEMI) myocardial infarction (principal); I50.23 Acute on chronic systolic (congestive) heart failure; I42.7 Cardiomyopathy due to drug and external agent; I11.0 Hypertensive heart disease with heart failure; F12.10 Cannabis abuse, uncomplicated; F17.210 Nicotine dependence, cigarettes, uncomplicated; J45.909 Unspecified asthma, uncomplicated; Z20.822 Contact with and (suspected) exposure to COVID-19; T43.655A Adverse effect of methamphetamines, initial encounter; F41.9 Anxiety disorder, unspecified; I25.10 Atherosclerotic heart disease of native coronary artery without angina pectoris; J44.9 Chronic obstructive pulmonary disease, unspecified; Z88.0 Allergy status to penicillin; Z88.8 Allergy status to other drugs, medicaments and biological substances; Z79.899 Other long term (current) drug therapy; Z91.148 Patient's other noncompliance with medication regimen for other reason; Z71.51 Drug abuse counseling and surveillance of drug abuser; Y92.89 Other specified places as the place of occurrence of the external cause
CPT/HCPCS: 36415; 71045; 80048; 83721; 83735; 83880; 84484; 85025; 85610; 85730; 87081; 96374; 96375; 99285; J1644; J1940; J2060; J2270

== ENCOUNTER 2023-06-19 08:25 | Emergency (ER) | payer OTHER ==
[~2023-06-19] VITALS: Ht 157.5 cm; Wt 80.8 kg
[~2023-06-19 08:25] MED LIST changes: -CARV6.25 PO; +CARV6.252 PO; -FURO-570 PO; +FURO40TA9 PO; +MELO-174 PO; -PRED20TA5 PO
[2023-06-19 08:32] VITALS: BP 132/90; RESP 18; TEMP 97; O2SAT 100
[2023-06-19] MEDS ORDERED: MORPHINE SULFATE 2 MG/ML SYR IVP ONE (09:10)
[2023-06-19] MEDS ORDERED: NITROGLYCERIN 2% 1 GM PKT TP ONE (09:10)
[2023-06-19] MEDS ORDERED: FUROSEMIDE 100 MG/10 ML VIAL IVP ONE (10:00)
[2023-06-19] MEDS ORDERED: KETOROLAC 30 MG/ML VIAL IVP ONE (10:00)
[2023-06-19] MEDS ORDERED: ACET-8905 PO (10:59)
[2023-06-19 11:15] VITALS: BP 127/72; PULSE 60; RESP 18; TEMP 97; O2SAT 100
== END 2023-06-19 11:15 | disposition home or self-care (01) ==
LOC: MED 08:25
DX: R07.9 Chest pain, unspecified (principal); I11.0 Hypertensive heart disease with heart failure; I50.22 Chronic systolic (congestive) heart failure; Z79.899 Other long term (current) drug therapy; Z79.82 Long term (current) use of aspirin; J44.9 Chronic obstructive pulmonary disease, unspecified; Z88.8 Allergy status to other drugs, medicaments and biological substances; Z88.0 Allergy status to penicillin
CPT/HCPCS: 71045; 93005; 96374; 96375; 99284; J1885; J1940; J2270

== ENCOUNTER 2023-08-10 09:51 | Emergency (ER) | payer OTHER ==
[~2023-08-10] VITALS: Ht 157.5 cm; Wt 77.6 kg
[2023-08-10 10:02] VITALS: BP 136/91; RESP 17; TEMP 98.3; O2SAT 99
[2023-08-10] MEDS: LORazepam 1 MG TAB PO ONE (10:23)
[2023-08-10] MEDS ORDERED: ATA25 PO (10:30)
[2023-08-10] MEDS ORDERED: KETOROLAC 60 MG/2 ML VIAL IM ONE (10:40)
[2023-08-10] MEDS: KETOROLAC 60 MG/2 ML VIAL IM ONE (10:41)
[2023-08-10 10:44] VITALS: BP 130/71; PULSE 85; RESP 17; TEMP 98.3; O2SAT 99
== END 2023-08-10 10:46 | disposition home or self-care (01) ==
LOC: MED 09:51
DX: R07.9 Chest pain, unspecified (principal); F41.9 Anxiety disorder, unspecified; F15.10 Other stimulant abuse, uncomplicated; I11.9 Hypertensive heart disease without heart failure; Z88.0 Allergy status to penicillin; Z79.899 Other long term (current) drug therapy
CPT/HCPCS: 93005; 96372; 99283; J1885

== ENCOUNTER 2023-08-28 04:20 | Emergency (ER) | payer OTHER ==
[~2023-08-28] VITALS: Ht 157.5 cm; Wt 83.9 kg
[~2023-08-28 04:20] MED LIST changes: +ATA25 PO
[2023-08-28 04:24] VITALS: BP 123/83; PULSE 106; RESP 24; TEMP 98.9; O2SAT 98
[2023-08-28 05:43] LABS: APPEARANCE,URINE CLEAR (CLEAR); BILIRUBIN,URINE 1+ (NEGATIVE); BLOOD, URINE 1+ (NEGATIVE); COLOR,URINE DK. YELLOW (YELLOW); LEUKOCYTE ESTERASE ,URINE NEGATIVE (NEGATIVE); NITRITE, URINE NEGATIVE (NEGATIVE); PROTEIN,URINE 1+ (NEGATIVE); UGLUCOSE TRACE (NEGATIVE)
[2023-08-28 05:55] LABS: ICTOTEST POSITIVE (NEGATIVE)
[2023-08-28 05:56] LABS: BACTERIA,URINE 10-30 (MOD) /HPF (None Seen); MUCUS,URINE 1+ /LPF (None Seen); SQUAMOUS EPITHELIAL CELL,UR 0-3 (FEW) /LPF (0-3 (FEW)); WBC,URINE 0-5 /HPF (0-5)
[2023-08-28 06:01] VITALS: O2SAT 95
[2023-08-28] MEDS: MORPHINE SULFATE 2 MG/ML SYR IVP STA ×2 (06:11→08:54)
[2023-08-28] MEDS: diphenhydrAMINE 50 MG/ML VIAL IVP ONE (06:15)
[2023-08-28 06:43] LABS: BASOPHILS % (AUTO) 0.2 % (0.0-2.0); EOSINOPHILS % (AUTO) 0.1 % (0.0-4.0); HEMATOCRIT 34.8 % (36-48); HEMOGLOBIN 11.7 g/dL (12.0-16.0); LYMPHOCYTES # (AUTO) 0.3 K/uL (2.5-16.5); LYMPHOCYTES % (AUTO) 3.6 % (20.5-51.1); MEAN CORPUSCULAR HEMOGLOBIN 29 pg (27-31); MEAN CORPUSCULAR HGB CONC 34 g/dL (33-37); MEAN CORPUSCULAR VOLUME 87.3 fL (80-94); MONOCYTES # (AUTO) 0.5 K/uL (0.8-1.0); MONOCYTES % (AUTO) 6.7 % (1.7-9.3); NEUTROPHILS # (AUTO) 6.6 K/uL (1.8-7.7); NEUTROPHILS % (AUTO) 89.4 % (42.2-75.2); PLATELET COUNT (AUTO) 264 K/uL (140-450); RED BLOOD CELL COUNT(AUTO) 3.99 MIL/uL (4.20-5.40); RED CELL DISTRIBUTION WIDTH 14.6 % (11.6-13.7); WHITE BLOOD COUNT (AUTO) 7.4 K/uL (4.8-10.8)
[2023-08-28 07:30] LABS: LIPASE 12 U/L (16-77)
[2023-08-28 07:59] LABS: ANION GAP 17.5 (8-16); CALCIUM 9.2 mg/dL (8.5-10.1); CARBON DIOXIDE 21.4 mmol/L (21-32); CREATININE 1.4 mg/dL (0.6-1.3); POTASSIUM 3.9 mmol/L (3.5-5.1); TOTAL PROTEIN, SERUM 7.6 g/dL (6.4-8.2)
[2023-08-28] MEDS ORDERED: cefTRIAXone 1,000 MG VIAL ONE (08:15)
[2023-08-28] MEDS: ASPIRIN 81 MG TAB.CHEW PO ONE (08:18)
[2023-08-28] MEDS ORDERED: OMEP20EC11 PO (08:35)
[2023-08-28] MEDS ORDERED: FURO-570 PO (08:35)
[2023-08-28] MEDS ORDERED: HEPARIN PER PHARMACY MC PRN (08:45)
[2023-08-28] MEDS ORDERED: AZITHROMYCIN 500 MG INJ VIAL IV ONE (09:01)
[2023-08-28] MEDS: AZITHROMYCIN 500 MG in DEXTROSE 5% 250 ML IV ONE (09:15)
[2023-08-28 09:20] LABS: LACTIC ACID 2.7 mmol/L (0.4-2.0)
[2023-08-28 09:33] LABS: INR 1.17 (0.8-1.2); PARTIAL THROMBOPLASTIN TIME 33.4 secs (22-35.6); PROTHROMBIN TIME 12.2 secs (10.8-13.4)
[2023-08-28] MEDS ORDERED: fentaNYL citrate 0.05 MG/ML VIAL ONE (11:15)
[2023-08-28] MEDS: fentaNYL citrate 0.05 MG/ML VIAL IVP ONE (11:40)
[2023-08-28] MEDS: NACL 0.9% 500 ML IV ONE (11:41)
[2023-08-28] MEDS: hePARIN / DEXT 5% PREMIX 250 ML IV SCH (11:54)
[2023-08-28 13:05] VITALS: BP 96/66; PULSE 124; RESP 28; TEMP 98.5; O2SAT 94
== END 2023-08-28 13:05 | disposition short-term general hospital (02) ==
LOC: MED 04:20
DX: I21.4 Non-ST elevation (NSTEMI) myocardial infarction (principal); J18.8 Other pneumonia, unspecified organism; B96.89 Other specified bacterial agents as the cause of diseases classified elsewhere; R94.31 Abnormal electrocardiogram [ECG] [EKG]; I11.0 Hypertensive heart disease with heart failure; Z79.899 Other long term (current) drug therapy; J45.909 Unspecified asthma, uncomplicated; J44.9 Chronic obstructive pulmonary disease, unspecified; Z88.0 Allergy status to penicillin; Z88.8 Allergy status to other drugs, medicaments and biological substances
CPT/HCPCS: 36415; 71045; 71275; 74176; 80053; 81001; 83605; 83690; 83880; 84484; 85025; 85379; 85610; 85730; 87040; 87086; 93005; 96365; 96367; 96375; 96376; 99291; J0456; J0696; J1200; J1644; J2270; J3010; J7030; Q9967

== ENCOUNTER 2023-09-10 08:30 | Observation (INO) | payer OTHER ==
[~2023-09-10] VITALS: Ht 157.5 cm; Wt 83.9 kg
[~2023-09-10 08:30] MED LIST changes: +FURO-570 PO; -FURO40TA9 PO; +OMEP20EC11 PO
[2023-09-10 08:33] VITALS: BP 124/85; PULSE 78; TEMP 97; O2SAT 100
[2023-09-10 09:27] LABS: BASOPHILS # (AUTO) 0.1 K/uL (0.00-0.22); BASOPHILS % (AUTO) 1.9 % (0.0-2.0); EOSINOPHILS # (AUTO) 0.1 K/uL (0-0.4); EOSINOPHILS % (AUTO) 2.3 % (0.0-4.0); HEMATOCRIT 32.1 % (36-48); HEMOGLOBIN 10.6 g/dL (12.0-16.0); LYMPHOCYTES # (AUTO) 2.2 K/uL (2.5-16.5); LYMPHOCYTES % (AUTO) 40.4 % (20.5-51.1); MEAN CORPUSCULAR HEMOGLOBIN 29 pg (27-31); MEAN CORPUSCULAR HGB CONC 33 g/dL (33-37); MEAN CORPUSCULAR VOLUME 86.6 fL (80-94); MONOCYTES # (AUTO) 0.8 K/uL (0.8-1.0); MONOCYTES % (AUTO) 13.9 % (1.7-9.3); NEUTROPHILS # (AUTO) 2.3 K/uL (1.8-7.7); NEUTROPHILS % (AUTO) 41.5 % (42.2-75.2); PLATELET COUNT (AUTO) 397 K/uL (140-450); WHITE BLOOD COUNT (AUTO) 5.5 K/uL (4.8-10.8)
[2023-09-10 09:34] LABS: ANION GAP 12.8 (8-16); CALCIUM 8.4 mg/dL (8.5-10.1); CREATININE 1.1 mg/dL (0.6-1.3); POTASSIUM 3.8 mmol/L (3.5-5.1)
[2023-09-10 09:48] LABS: ALANINE AMINOTRANSFERASE 19 U/L (12-78); ALBUMIN 2.9 g/dL (3.4-5.0); ALKALINE PHOSPHATASE 76 U/L (50-136); ASPARTATE AMINOTRANSFERASE 21 U/L (15-37); TOTAL BILIRUBIN 0.2 mg/dL (0.0-1.0); TOTAL PROTEIN, SERUM 7.1 g/dL (6.4-8.2)
[2023-09-10 09:54] LABS: LACTIC ACID 1.2 mmol/L (0.4-2.0)
[2023-09-10 10:07] LABS: FLU A ANTIGEN negative (NEGATIVE); FLU B ANTIGEN negative (NEGATIVE)
[2023-09-10 10:09] LABS: APPEARANCE,URINE CLEAR (CLEAR); BILIRUBIN,URINE NEGATIVE (NEGATIVE); BLOOD, URINE NEGATIVE (NEGATIVE); COLOR,URINE YELLOW (YELLOW); LEUKOCYTE ESTERASE ,URINE NEGATIVE (NEGATIVE); NITRITE, URINE NEGATIVE (NEGATIVE); PROTEIN,URINE NEGATIVE (NEGATIVE); UGLUCOSE NEGATIVE (NEGATIVE); UROBILINOGEN,URINE 0.2 EU/dL (0.2 - 1)
[2023-09-10] MEDS: ASPIRIN 81 MG TAB.CHEW PO ONE (10:40)
[2023-09-10] MEDS: ONDANSETRON 4 MG/2 ML VIAL IVP ONE (10:41)
[2023-09-10] MEDS: MORPHINE SULFATE 4 MG/ML SYR IVP ONE (10:46)
[2023-09-10] MEDS: FUROSEMIDE 40 MG/4 ML VIAL IVP SCH (11:35)
[2023-09-10] MEDS: LEVOFLOXACIN 500 MG/D5W PREMIX 100 ML IV ONE (11:44)
[2023-09-10] MEDS ORDERED: POTASSIUM CHLORIDE 10 MEQ TABER PO PRN (12:30)
[2023-09-10] MEDS ORDERED: MAGNESIUM OXIDE 400 MG TAB PO PRN (12:30)
[2023-09-10] MEDS ORDERED: MAG SULF 2000 MG/WATER PREMIX 50 ML IV PRN (12:30)
[2023-09-10] MEDS ORDERED: KCL 20 MEQ IN 100 mL PREMIX 200 ML IV PRN (12:30)
[2023-09-10] MEDS ORDERED: ONDANSETRON 4 MG/2 ML VIAL IVP PRN (12:30)
[2023-09-10] MEDS ORDERED: AZITHROMYCIN 500 MG in DEXTROSE 5% 250 ML IV SCH (14:00)
[2023-09-10 14:35] VITALS: PULSE 67; RESP 17; O2SAT 98
[2023-09-10 14:44] VITALS: PULSE 98
[2023-09-10 16:00] VITALS: PULSE 72
[2023-09-10] MEDS: ACETAMINOPHEN 325 MG TAB PO PRN (16:45)
[2023-09-10] MEDS: LORazepam 1 MG TAB PO PRN (17:35)
[2023-09-10 20:00] VITALS: BP 104/64; PULSE 87; PULSE 89; RESP 18; TEMP 97.3; O2SAT 95
[2023-09-10] MEDS: HYDROcodone/APAP 5/325 MG 1 TAB TAB PO PRN (21:30)
[2023-09-11] VITALS (8 sets, daily range): BP systolic 109–132; BP diastolic 60–85; PULSE 70–106; RESP 18–20; TEMP 97.2–98.8; O2SAT 94–97
[2023-09-11 06:51] LABS: BASOPHILS # (AUTO) 0.1 K/uL (0.00-0.22); EOSINOPHILS # (AUTO) 0.2 K/uL (0-0.4); EOSINOPHILS % (AUTO) 4.4 % (0.0-4.0); HEMATOCRIT 29.7 % (36-48); HEMOGLOBIN 9.7 g/dL (12.0-16.0); LYMPHOCYTES # (AUTO) 2.2 K/uL (2.5-16.5); LYMPHOCYTES % (AUTO) 45.9 % (20.5-51.1); MEAN CORPUSCULAR HEMOGLOBIN 28 pg (27-31); MEAN CORPUSCULAR HGB CONC 33 g/dL (33-37); MEAN CORPUSCULAR VOLUME 85.9 fL (80-94); MONOCYTES # (AUTO) 0.8 K/uL (0.8-1.0); MONOCYTES % (AUTO) 17.6 % (1.7-9.3); NEUTROPHILS # (AUTO) 1.4 K/uL (1.8-7.7); NEUTROPHILS % (AUTO) 30.1 % (42.2-75.2); PLATELET COUNT (AUTO) 354 K/uL (140-450); RED BLOOD CELL COUNT(AUTO) 3.46 MIL/uL (4.20-5.40); RED CELL DISTRIBUTION WIDTH 14.6 % (11.6-13.7); WHITE BLOOD COUNT (AUTO) 4.7 K/uL (4.8-10.8)
[2023-09-11 07:00] LABS: ANION GAP 12.2 (8-16); CALCIUM 8.4 mg/dL (8.5-10.1); CARBON DIOXIDE 26.5 mmol/L (21-32); CREATININE 1.1 mg/dL (0.6-1.3); POTASSIUM 3.7 mmol/L (3.5-5.1)
[2023-09-11 07:02] LABS: MAGNESIUM 1.9 mg/dL (1.8-2.4)
[2023-09-11] MEDS: FUROSEMIDE 40 MG/4 ML VIAL IVP SCH ×2 (09:00→15:03)
[2023-09-11] MEDS: LEVOFLOXACIN 500 MG/D5W PREMIX 100 ML IV SCH (10:02)
[2023-09-11] MEDS ORDERED: carvediloL 3.125 MG TAB PO SCH (21:00)
[2023-09-12] MEDS ORDERED: ECOTRIN 81 MG TABEC PO SCH (09:00)
[2023-09-12] MEDS ORDERED: ATORVASTATIN 20 MG TAB PO SCH (09:00)
[2023-09-12] MEDS ORDERED: LOSARTAN 25 MG TAB PO SCH (09:00)
[2023-09-12] MEDS ORDERED: SPIRONOLACTONE 25 MG TAB PO SCH (09:00)
== END 2023-09-11 19:58 | disposition home or self-care (01) ==
LOC: MED 08:30 → MTU 12:31
PROVIDERS: ADMIT Hospitalist; ATTEND Hospitalist
DX: I11.0 Hypertensive heart disease with heart failure (principal); Z20.822 Contact with and (suspected) exposure to COVID-19; I50.22 Chronic systolic (congestive) heart failure; I21.4 Non-ST elevation (NSTEMI) myocardial infarction; J44.9 Chronic obstructive pulmonary disease, unspecified; F19.10 Other psychoactive substance abuse, uncomplicated; D64.9 Anemia, unspecified; J90 Pleural effusion, not elsewhere classified; I25.10 Atherosclerotic heart disease of native coronary artery without angina pectoris; F17.210 Nicotine dependence, cigarettes, uncomplicated; Z91.199 Patient's noncompliance with other medical treatment and regimen due to unspecified reason; Z79.82 Long term (current) use of aspirin; Z88.0 Allergy status to penicillin; Z88.8 Allergy status to other drugs, medicaments and biological substances; Z79.899 Other long term (current) drug therapy
CPT/HCPCS: 36415; 71045; 80048; 80076; 81003; 83605; 83735; 83880; 84100; 84484; 85025; 87040; 87081; 87086; 87426; 87804; 96365; 96366; 96372; 96375; 96376; 99285; G0378; J1644; J1940; J1956; J2270; J2405; 96367

== ENCOUNTER 2023-09-30 09:35 | Observation (INO) | payer OTHER ==
[~2023-09-30] VITALS: Ht 157.5 cm; Wt 78.0 kg
[2023-09-30 09:42] VITALS: BP 143/85; PULSE 99; RESP 24; TEMP 97.7; O2SAT 96
[2023-09-30 10:28] LABS: BASOPHILS % (AUTO) 0.6 % (0.0-2.0); EOSINOPHILS # (AUTO) 0.1 K/uL (0-0.4); EOSINOPHILS % (AUTO) 1.6 % (0.0-4.0); HEMATOCRIT 31.2 % (36-48); HEMOGLOBIN 10.4 g/dL (12.0-16.0); LYMPHOCYTES # (AUTO) 2.1 K/uL (2.5-16.5); LYMPHOCYTES % (AUTO) 27.7 % (20.5-51.1); MEAN CORPUSCULAR HEMOGLOBIN 28 pg (27-31); MEAN CORPUSCULAR HGB CONC 33 g/dL (33-37); MEAN CORPUSCULAR VOLUME 85.1 fL (80-94); MONOCYTES # (AUTO) 0.8 K/uL (0.8-1.0); MONOCYTES % (AUTO) 10.8 % (1.7-9.3); NEUTROPHILS # (AUTO) 4.5 K/uL (1.8-7.7); NEUTROPHILS % (AUTO) 59.3 % (42.2-75.2); PLATELET COUNT (AUTO) 181 K/uL (140-450); RED BLOOD CELL COUNT(AUTO) 3.67 MIL/uL (4.20-5.40); WHITE BLOOD COUNT (AUTO) 7.6 K/uL (4.8-10.8)
[2023-09-30 11:02] LABS: ANION GAP 12.8 (8-16); CALCIUM 8.7 mg/dL (8.5-10.1); CARBON DIOXIDE 27.3 mmol/L (21-32); CREATININE 1.1 mg/dL (0.6-1.3); POTASSIUM 4.1 mmol/L (3.5-5.1)
[2023-09-30] MEDS: ASPIRIN 81 MG TAB.CHEW PO ONE (11:52)
[2023-09-30] MEDS: ONDANSETRON 4 MG/2 ML VIAL IVP ONE (11:55)
[2023-09-30] MEDS: FUROSEMIDE 40 MG/4 ML VIAL IVP ONE (11:58)
[2023-09-30] MEDS: MORPHINE SULFATE 4 MG/ML SYR IVP ONE (12:02)
[2023-09-30] MEDS ORDERED: ACETAMINOPHEN 325 MG TAB PO PRN (14:30)
[2023-09-30] MEDS ORDERED: KCL 20 MEQ IN 100 mL PREMIX 200 ML IV PRN (14:30)
[2023-09-30] MEDS ORDERED: ONDANSETRON 4 MG/2 ML VIAL IVP PRN (14:30)
[2023-09-30] MEDS ORDERED: POTASSIUM CHLORIDE 10 MEQ TABER PO PRN (14:30)
[2023-09-30] MEDS ORDERED: MAGNESIUM OXIDE 400 MG TAB PO PRN (14:30)
[2023-09-30] MEDS ORDERED: MAG SULF 2000 MG/WATER PREMIX 50 ML IV PRN (14:30)
[2023-09-30] MEDS: MORPHINE SULFATE 4 MG/ML SYR IVP PRN (16:33)
[2023-09-30] MEDS: HYDROcodone/APAP 5/325 MG 1 TAB TAB PO PRN (21:11)
[2023-09-30] MEDS: ZOLPIDEM 5 MG TAB PO ONE (22:11)
[2023-10-01 07:09] LABS: BASOPHILS % (AUTO) 0.4 % (0.0-2.0); EOSINOPHILS # (AUTO) 0.2 K/uL (0-0.4); EOSINOPHILS % (AUTO) 3.3 % (0.0-4.0); HEMATOCRIT 29.6 % (36-48); HEMOGLOBIN 9.8 g/dL (12.0-16.0); LYMPHOCYTES # (AUTO) 1.9 K/uL (2.5-16.5); LYMPHOCYTES % (AUTO) 34.8 % (20.5-51.1); MEAN CORPUSCULAR HEMOGLOBIN 29 pg (27-31); MEAN CORPUSCULAR HGB CONC 33 g/dL (33-37); MEAN CORPUSCULAR VOLUME 86.6 fL (80-94); MONOCYTES # (AUTO) 0.8 K/uL (0.8-1.0); MONOCYTES % (AUTO) 15.1 % (1.7-9.3); NEUTROPHILS # (AUTO) 2.6 K/uL (1.8-7.7); NEUTROPHILS % (AUTO) 46.4 % (42.2-75.2); PLATELET COUNT (AUTO) 160 K/uL (140-450); RED BLOOD CELL COUNT(AUTO) 3.42 MIL/uL (4.20-5.40); RED CELL DISTRIBUTION WIDTH 16.3 % (11.6-13.7); WHITE BLOOD COUNT (AUTO) 5.6 K/uL (4.8-10.8)
[2023-10-01 07:52] LABS: ALBUMIN 3.1 g/dL (3.4-5.0); ANION GAP 12.4 (8-16); CALCIUM 8.7 mg/dL (8.5-10.1); CARBON DIOXIDE 29.1 mmol/L (21-32); CREATININE 1.2 mg/dL (0.6-1.3); POTASSIUM 3.5 mmol/L (3.5-5.1); TOTAL PROTEIN, SERUM 6.5 g/dL (6.4-8.2)
[2023-10-01 08:28] VITALS: PULSE 95; RESP 12; O2SAT 98
[2023-10-01 08:40] VITALS: BP 115/79; PULSE 82; RESP 19; TEMP 97.4; O2SAT 96
[2023-10-01 11:29] LABS: TOTAL BILIRUBIN 0.3 mg/dL (0.0-1.0)
[2023-10-01 12:34] VITALS: BP 115/57; PULSE 76; PULSE 92; RESP 19; TEMP 97.4; O2SAT 98
[2023-10-01] MEDS ORDERED: HYDROcodone/APAP 5/325 MG 1 TAB TAB PO PRN ×2 (15:45)
[2023-10-01] MEDS: LORazepam 0.5 MG TAB PO PRN (16:09)
[2023-10-01] MEDS: FUROSEMIDE 40 MG TAB PO SCH (16:09)
[2023-10-01 16:23] VITALS: BP 124/70; PULSE 83; RESP 18; TEMP 97.9; O2SAT 98
[2023-10-01 16:42] VITALS: PULSE 94
[2023-10-01 20:00] VITALS: BP 113/78; PULSE 94; PULSE 95; RESP 18; TEMP 97.3; O2SAT 94
[2023-10-01] MEDS: SPIRONOLACTONE 25 MG TAB PO SCH (20:35)
[2023-10-01] MEDS: carvediloL 6.25 MG TAB PO SCH (20:37)
[2023-10-02] VITALS (10 sets, daily range): BP systolic 113–126; BP diastolic 66–94; PULSE 79–120; RESP 16–18; TEMP 96.9–98.2; O2SAT 90–97
[2023-10-02] MEDS: HYDROXYZINE HYDROCHLORIDE 25 MG TAB PO PRN (03:01)
[2023-10-02 06:22] LABS: BASOPHILS % (AUTO) 0.6 % (0.0-2.0); EOSINOPHILS # (AUTO) 0.2 K/uL (0-0.4); EOSINOPHILS % (AUTO) 2.4 % (0.0-4.0); HEMATOCRIT 31.2 % (36-48); HEMOGLOBIN 10.2 g/dL (12.0-16.0); LYMPHOCYTES # (AUTO) 1.8 K/uL (2.5-16.5); LYMPHOCYTES % (AUTO) 27.9 % (20.5-51.1); MEAN CORPUSCULAR HEMOGLOBIN 28 pg (27-31); MEAN CORPUSCULAR HGB CONC 33 g/dL (33-37); MONOCYTES # (AUTO) 0.8 K/uL (0.8-1.0); MONOCYTES % (AUTO) 12.3 % (1.7-9.3); NEUTROPHILS # (AUTO) 3.7 K/uL (1.8-7.7); NEUTROPHILS % (AUTO) 56.8 % (42.2-75.2); PLATELET COUNT (AUTO) 166 K/uL (140-450); RED BLOOD CELL COUNT(AUTO) 3.59 MIL/uL (4.20-5.40); RED CELL DISTRIBUTION WIDTH 16.2 % (11.6-13.7); WHITE BLOOD COUNT (AUTO) 6.5 K/uL (4.8-10.8)
[2023-10-02 06:53] LABS: ANION GAP 11.9 (8-16); CALCIUM 8.6 mg/dL (8.5-10.1); CARBON DIOXIDE 29.7 mmol/L (21-32); CREATININE 0.9 mg/dL (0.6-1.3); MAGNESIUM 1.9 mg/dL (1.8-2.4); POTASSIUM 3.6 mmol/L (3.5-5.1); TOTAL BILIRUBIN 0.3 mg/dL (0.0-1.0); TOTAL PROTEIN, SERUM 6.3 g/dL (6.4-8.2)
[2023-10-02] MEDS: LOSARTAN 25 MG TAB PO SCH (08:26)
[2023-10-02] MEDS: ATORVASTATIN 20 MG TAB PO SCH (08:26)
[2023-10-02] MEDS: ECOTRIN 81 MG TABEC PO SCH (08:27)
[2023-10-02] MEDS: CYCLOBENZAPRINE 10 MG TAB PO PRN (13:26)
== END 2023-10-02 14:50 | disposition home or self-care (01) ==
LOC: MED 09:35 → MTU 14:26 → MIC 18:54 → MTU 18:57
PROVIDERS: ADMIT Hospitalist; ATTEND Hospitalist
DX: I50.9 Heart failure, unspecified (principal); I11.0 Hypertensive heart disease with heart failure; E11.9 Type 2 diabetes mellitus without complications; F19.10 Other psychoactive substance abuse, uncomplicated; I21.4 Non-ST elevation (NSTEMI) myocardial infarction; F41.9 Anxiety disorder, unspecified; J44.9 Chronic obstructive pulmonary disease, unspecified; Z88.0 Allergy status to penicillin; Z88.8 Allergy status to other drugs, medicaments and biological substances; Z79.82 Long term (current) use of aspirin
CPT/HCPCS: 36415; 71045; 80048; 80053; 83735; 83880; 84484; 85025; 87081; 96372; 96374; 96375; 96376; 99291; G0378; J1644; J1940; J2270; J2405

== ENCOUNTER 2023-10-14 08:34 | Observation (INO) | payer OTHER ==
[~2023-10-14] VITALS: Ht 157.5 cm; Wt 76.7 kg
[2023-10-14 08:53] VITALS: BP 131/77; PULSE 79; RESP 18; TEMP 96.6; O2SAT 99
[2023-10-14 10:13] LABS: BASOPHILS % (AUTO) 0.7 % (0.0-2.0); EOSINOPHILS # (AUTO) 0.1 K/uL (0-0.4); EOSINOPHILS % (AUTO) 1.2 % (0.0-4.0); HEMATOCRIT 31.7 % (36-48); HEMOGLOBIN 10.5 g/dL (12.0-16.0); LYMPHOCYTES # (AUTO) 1.6 K/uL (2.5-16.5); LYMPHOCYTES % (AUTO) 30.4 % (20.5-51.1); MEAN CORPUSCULAR HEMOGLOBIN 28 pg (27-31); MEAN CORPUSCULAR HGB CONC 33 g/dL (33-37); MEAN CORPUSCULAR VOLUME 85.2 fL (80-94); MONOCYTES # (AUTO) 0.6 K/uL (0.8-1.0); MONOCYTES % (AUTO) 10.6 % (1.7-9.3); NEUTROPHILS % (AUTO) 57.1 % (42.2-75.2); PLATELET COUNT (AUTO) 235 K/uL (140-450); RED BLOOD CELL COUNT(AUTO) 3.72 MIL/uL (4.20-5.40); RED CELL DISTRIBUTION WIDTH 17.7 % (11.6-13.7); WHITE BLOOD COUNT (AUTO) 5.2 K/uL (4.8-10.8)
[2023-10-14] MEDS: ASPIRIN 325 MG TAB PO ONE (10:47)
[2023-10-14 11:10] LABS: ALBUMIN 3.2 g/dL (3.4-5.0); ANION GAP 13.1 (8-16); CALCIUM 8.6 mg/dL (8.5-10.1); CARBON DIOXIDE 24.6 mmol/L (21-32); CREATININE 0.8 mg/dL (0.6-1.3); POTASSIUM 3.7 mmol/L (3.5-5.1); TOTAL BILIRUBIN 0.4 mg/dL (0.0-1.0); TOTAL PROTEIN, SERUM 6.9 g/dL (6.4-8.2)
[2023-10-14] MEDS: FUROSEMIDE 40 MG/4 ML VIAL IVP ONE (11:33)
[2023-10-14] MEDS: MORPHINE SULFATE 4 MG/ML SYR IVP ONE (11:42)
[2023-10-14] MEDS: LEVOFLOXACIN 750 MG/D5W PREMIX 150 ML IV ONE (13:16)
[2023-10-14] MEDS ORDERED: ACETAMINOPHEN 325 MG TAB PO PRN (13:55)
[2023-10-14] MEDS ORDERED: KCL 20 MEQ IN 100 mL PREMIX 200 ML IV PRN (13:55)
[2023-10-14] MEDS ORDERED: ONDANSETRON 4 MG/2 ML VIAL IVP PRN (13:55)
[2023-10-14] MEDS ORDERED: MAG SULF 2000 MG/WATER PREMIX 50 ML IV PRN (13:55)
[2023-10-14] MEDS: HYDROcodone/APAP 5/325 MG 1 TAB TAB PO PRN (15:02)
[2023-10-14 15:29] VITALS: BP 114/62; PULSE 79; RESP 18; TEMP 96.7; O2SAT 100
[2023-10-14 15:31] VITALS: PULSE 79; RESP 18; O2SAT 100
[2023-10-14 16:11] VITALS: PULSE 75
[2023-10-14] MEDS: LORazepam 1 MG TAB PO PRN (19:48)
[2023-10-14] MEDS: MORPHINE SULFATE 4 MG/ML SYR IVP PRN (19:49)
[2023-10-14 20:00] VITALS: BP 103/76; PULSE 79; PULSE 82; PULSE 88; RESP 18; RESP 19; TEMP 97.1; O2SAT 97
[2023-10-14] MEDS: FUROSEMIDE 40 MG/4 ML VIAL IVP SCH (20:08)
[2023-10-14] MEDS ORDERED: DEXTROSE 50% 50 ML SYR IVP PRN (21:50)
[2023-10-14] MEDS ORDERED: INSULIN LISPRO SLIDING SCALE 100 UNITS/ML VIAL SUBQ PRN (21:50)
[2023-10-15] VITALS (9 sets, daily range): BP systolic 112–120; BP diastolic 69–85; PULSE 61–113; RESP 18–20; TEMP 97.2–97.7; O2SAT 94–100
[2023-10-15] MEDS: ZOLPIDEM 5 MG TAB PO PRN (00:34)
[2023-10-15 06:56] LABS: BASOPHILS % (AUTO) 0.3 % (0.0-2.0); EOSINOPHILS # (AUTO) 0.1 K/uL (0-0.4); EOSINOPHILS % (AUTO) 1.3 % (0.0-4.0); HEMOGLOBIN 11.1 g/dL (12.0-16.0); LYMPHOCYTES # (AUTO) 1.4 K/uL (2.5-16.5); LYMPHOCYTES % (AUTO) 32.9 % (20.5-51.1); MEAN CORPUSCULAR HEMOGLOBIN 28 pg (27-31); MEAN CORPUSCULAR HGB CONC 33 g/dL (33-37); MEAN CORPUSCULAR VOLUME 85.6 fL (80-94); MONOCYTES # (AUTO) 0.6 K/uL (0.8-1.0); MONOCYTES % (AUTO) 14.3 % (1.7-9.3); NEUTROPHILS # (AUTO) 2.2 K/uL (1.8-7.7); NEUTROPHILS % (AUTO) 51.2 % (42.2-75.2); PLATELET COUNT (AUTO) 238 K/uL (140-450); RED BLOOD CELL COUNT(AUTO) 3.97 MIL/uL (4.20-5.40); RED CELL DISTRIBUTION WIDTH 17.7 % (11.6-13.7); WHITE BLOOD COUNT (AUTO) 4.3 K/uL (4.8-10.8)
[2023-10-15] MEDS: BLOOD GLUCOSE MONITORING 1 DEV DEV FS SCH (07:18)
[2023-10-15 07:19] LABS: ANION GAP 14.6 (8-16); CALCIUM 8.5 mg/dL (8.5-10.1); CARBON DIOXIDE 25.5 mmol/L (21-32); CREATININE 1.1 mg/dL (0.6-1.3); POTASSIUM 3.1 mmol/L (3.5-5.1)
[2023-10-15] MEDS: ALBUTEROL SULFATE/IPRATROPIU 3 ML SOL IH SCH (07:42)
[2023-10-15] MEDS: DOCUSATE SODIUM 100 MG GELCAP PO SCH (08:48)
[2023-10-15] MEDS: ATORVASTATIN 20 MG TAB PO SCH (08:48)
[2023-10-15] MEDS: ECOTRIN 81 MG TABEC PO SCH (08:49)
[2023-10-15] MEDS: ENOXAPARIN 40 MG/0.4 ML SYR SUBQ SCH (08:51)
[2023-10-15] MEDS: POTASSIUM CHLORIDE 10 MEQ TABER PO PRN (13:18)
[2023-10-15 18:05] LABS: APPEARANCE,URINE CLEAR (CLEAR); BILIRUBIN,URINE NEGATIVE (NEGATIVE); BLOOD, URINE 1+ (NEGATIVE); COLOR,URINE YELLOW (YELLOW); LEUKOCYTE ESTERASE ,URINE NEGATIVE (NEGATIVE); NITRITE, URINE NEGATIVE (NEGATIVE); PROTEIN,URINE NEGATIVE (NEGATIVE); UGLUCOSE NEGATIVE (NEGATIVE); UROBILINOGEN,URINE 0.2 EU/dL (0.2 - 1)
[2023-10-15 18:15] LABS: BACTERIA,URINE FEW /HPF (None Seen); CALCIUM OXALATE CRYSTALS,UR 0-10 /HPF (None Seen); SQUAMOUS EPITHELIAL CELL,UR 0-3 (FEW) /LPF (0-3 (FEW)); WBC,URINE 0-5 /HPF (0-5)
[2023-10-16] VITALS: BP 115/69; PULSE 80; PULSE 97; RESP 20; TEMP 97.6; O2SAT 100
[2023-10-16 04:00] VITALS: BP 129/84; PULSE 87; PULSE 95; RESP 18; TEMP 97.8; O2SAT 98
[2023-10-16 07:19] LABS: ANION GAP 13.5 (8-16); CALCIUM 8.8 mg/dL (8.5-10.1); CARBON DIOXIDE 25.9 mmol/L (21-32); CREATININE 0.9 mg/dL (0.6-1.3); POTASSIUM 3.4 mmol/L (3.5-5.1)
[2023-10-16 07:25] LABS: BASOPHILS % (AUTO) 0.6 % (0.0-2.0); EOSINOPHILS # (AUTO) 0.1 K/uL (0-0.4); EOSINOPHILS % (AUTO) 1.9 % (0.0-4.0); MEAN CORPUSCULAR HEMOGLOBIN 28 pg (27-31); MEAN CORPUSCULAR HGB CONC 32 g/dL (33-37); MEAN CORPUSCULAR VOLUME 86.2 fL (80-94); MONOCYTES # (AUTO) 0.6 K/uL (0.8-1.0); MONOCYTES % (AUTO) 13.8 % (1.7-9.3); NEUTROPHILS # (AUTO) 1.8 K/uL (1.8-7.7); NEUTROPHILS % (AUTO) 39.7 % (42.2-75.2); PLATELET COUNT (AUTO) 229 K/uL (140-450); RED BLOOD CELL COUNT(AUTO) 3.94 MIL/uL (4.20-5.40); RED CELL DISTRIBUTION WIDTH 17.6 % (11.6-13.7); WHITE BLOOD COUNT (AUTO) 4.5 K/uL (4.8-10.8)
[2023-10-16 07:30] VITALS: PULSE 95; RESP 16; O2SAT 97
[2023-10-16 08:00] VITALS: BP 113/82; PULSE 71; PULSE 92; PULSE 99; RESP 18; TEMP 97.6; O2SAT 100
[2023-10-16 12:00] VITALS: BP 116/88; PULSE 79; PULSE 91; RESP 18; TEMP 98.2; O2SAT 97
[2023-10-16] MEDS ORDERED: ALBUTEROL SULFATE/IPRATROPIU 3 ML SOL IH SCH (13:00)
[2023-10-16 13:11] VITALS: PULSE 76; RESP 16; O2SAT 97
[2023-10-24] MEDS ORDERED: MELO-174 PO (08:52)
[2023-10-24] MEDS ORDERED: FURO-570 PO (08:52)
[2023-10-24] MEDS ORDERED: ASPI-1856 PO (08:52)
[2023-10-24] MEDS ORDERED: CARV6.252 PO (08:52)
[2023-10-24] MEDS ORDERED: ATI.5 PO (08:52)
[2023-10-24] MEDS ORDERED: ATOR20TA40 PO (08:52)
[2023-10-24] MEDS ORDERED: OMEP20EC11 PO (08:52)
[2023-10-24] MEDS ORDERED: ESCI5TAB18 PO (08:52)
[2023-10-24] MEDS ORDERED: LOSA-269 PO (08:52)
[2023-10-24] MEDS ORDERED: SPIR25TA21 PO (08:52)
[2023-10-24] MEDS ORDERED: ALBU0.0912 INH (08:53)
== END 2023-10-16 16:00 | disposition home or self-care (01) ==
LOC: MED 08:34 → MTU 13:54
PROVIDERS: ADMIT Internal Medicine; ATTEND Internal Medicine
DX: I11.0 Hypertensive heart disease with heart failure (principal); I50.23 Acute on chronic systolic (congestive) heart failure; N17.9 Acute kidney failure, unspecified; J45.909 Unspecified asthma, uncomplicated; I25.10 Atherosclerotic heart disease of native coronary artery without angina pectoris; E11.9 Type 2 diabetes mellitus without complications; R79.89 Other specified abnormal findings of blood chemistry; I21.4 Non-ST elevation (NSTEMI) myocardial infarction; E88.09 Other disorders of plasma-protein metabolism, not elsewhere classified; D64.9 Anemia, unspecified; F19.90 Other psychoactive substance use, unspecified, uncomplicated; Z88.0 Allergy status to penicillin; Z88.5 Allergy status to narcotic agent
CPT/HCPCS: 36415; 71045; 80048; 80053; 81001; 82948; 83735; 83880; 84484; 85025; 85379; 87040; 87081; 93005; 94640; 96365; 96372; 96375; 96376; 99285; G0378; J1650; J1815; J1940; J1956; J2270

== ENCOUNTER 2023-11-09 07:49 | Observation (INO) | payer OTHER ==
[~2023-11-09] VITALS: Ht 157.5 cm; Wt 76.2 kg
[~2023-11-09 07:49] MED LIST changes: +ALBU0.0912 INH
[2023-11-09 08:00] VITALS: BP 123/81; PULSE 84; RESP 20; TEMP 98; O2SAT 100
[2023-11-09] MEDS: LORazepam 1 MG TAB PO ONE (08:54)
[2023-11-09 08:59] LABS: BASOPHILS # (AUTO) 0.1 K/uL (0.00-0.22); BASOPHILS % (AUTO) 1.1 % (0.0-2.0); EOSINOPHILS # (AUTO) 0.1 K/uL (0-0.4); EOSINOPHILS % (AUTO) 2.8 % (0.0-4.0); HEMATOCRIT 32.1 % (36-48); HEMOGLOBIN 10.5 g/dL (12.0-16.0); LYMPHOCYTES # (AUTO) 2.2 K/uL (2.5-16.5); LYMPHOCYTES % (AUTO) 45.2 % (20.5-51.1); MEAN CORPUSCULAR HEMOGLOBIN 28 pg (27-31); MEAN CORPUSCULAR HGB CONC 33 g/dL (33-37); MEAN CORPUSCULAR VOLUME 86.3 fL (80-94); MONOCYTES # (AUTO) 0.5 K/uL (0.8-1.0); MONOCYTES % (AUTO) 10.4 % (1.7-9.3); NEUTROPHILS # (AUTO) 1.9 K/uL (1.8-7.7); NEUTROPHILS % (AUTO) 40.5 % (42.2-75.2); PLATELET COUNT (AUTO) 204 K/uL (140-450); RED BLOOD CELL COUNT(AUTO) 3.71 MIL/uL (4.20-5.40); RED CELL DISTRIBUTION WIDTH 18.3 % (11.6-13.7); WHITE BLOOD COUNT (AUTO) 4.8 K/uL (4.8-10.8)
[2023-11-09 09:33] LABS: INR 1.01 (0.8-1.2); PARTIAL THROMBOPLASTIN TIME 23.9 secs (22-35.6); PROTHROMBIN TIME 10.6 secs (10.8-13.4)
[2023-11-09 09:38] LABS: ALANINE AMINOTRANSFERASE 31 U/L (12-78); ALBUMIN 3.2 g/dL (3.4-5.0); ALKALINE PHOSPHATASE 91 U/L (50-136); ASPARTATE AMINOTRANSFERASE 38 U/L (15-37); BILIRUBIN,DIRECT 0.1 mg/dL (0.0-0.3); TOTAL BILIRUBIN 0.3 mg/dL (0.0-1.0); TOTAL PROTEIN, SERUM 6.9 g/dL (6.4-8.2)
[2023-11-09 09:52] LABS: ANION GAP 14.5 (8-16); CALCIUM 8.5 mg/dL (8.5-10.1); CARBON DIOXIDE 26.1 mmol/L (21-32); CREATININE 1.1 mg/dL (0.6-1.3); POTASSIUM 3.6 mmol/L (3.5-5.1)
[2023-11-09] MEDS: ONDANSETRON 4 MG/2 ML VIAL IVP ONE (11:08)
[2023-11-09] MEDS: MORPHINE SULFATE 4 MG/ML SYR IVP ONE (11:14)
[2023-11-09] MEDS: ASPIRIN 325 MG TAB PO ONE (12:46)
[2023-11-09] MEDS ORDERED: NITROGLYCERIN 0.4 MG TAB SL PRN (13:05)
[2023-11-09] MEDS ORDERED: ACETAMINOPHEN 325 MG TAB PO PRN (13:05)
[2023-11-09] MEDS ORDERED: ALUMINUM HYD/MAG/SIMETHICONE 30 ML UDC PO PRN (13:05)
[2023-11-09] MEDS ORDERED: ONDANSETRON 4 MG/2 ML VIAL IVP PRN (13:05)
[2023-11-09] MEDS ORDERED: LORazepam 2 MG/ML VIAL IVP PRN (13:05)
[2023-11-09] MEDS ORDERED: ALBUTEROL HFA MDI 90 MCG/ACTUATION 8 GM INH PRN (15:05)
[2023-11-09] MEDS: LORazepam 0.5 MG TAB PO PRN (15:58)
[2023-11-09] MEDS: HYDROcodone/APAP 5/325 MG 1 TAB TAB PO PRN (15:59)
[2023-11-09] MEDS: FUROSEMIDE 40 MG TAB PO SCH (16:07)
[2023-11-09] MEDS: MORPHINE SULFATE 2 MG/ML SYR IVP PRN (19:44)
[2023-11-09 20:28] VITALS: PULSE 82; RESP 16; O2SAT 98
[2023-11-09] MEDS: SPIRONOLACTONE 25 MG TAB PO SCH (21:00)
[2023-11-09] MEDS: carvediloL 6.25 MG TAB PO SCH (21:00)
[2023-11-09] MEDS ORDERED: METOPROLOL 25 MG TAB PO SCH (21:00)
[2023-11-09] MEDS: ZOLPIDEM 5 MG TAB PO PRN (21:04)
[2023-11-10] VITALS (8 sets, daily range): BP systolic 102–108; BP diastolic 65–83; PULSE 73–81; RESP 16–18; TEMP 97.3–98; O2SAT 97–98
[2023-11-10 05:43] LABS: BASOPHILS % (AUTO) 0.7 % (0.0-2.0); EOSINOPHILS # (AUTO) 0.1 K/uL (0-0.4); EOSINOPHILS % (AUTO) 1.8 % (0.0-4.0); HEMATOCRIT 32.1 % (36-48); HEMOGLOBIN 10.5 g/dL (12.0-16.0); LYMPHOCYTES # (AUTO) 2.4 K/uL (2.5-16.5); LYMPHOCYTES % (AUTO) 48.1 % (20.5-51.1); MEAN CORPUSCULAR HEMOGLOBIN 29 pg (27-31); MEAN CORPUSCULAR HGB CONC 33 g/dL (33-37); MEAN CORPUSCULAR VOLUME 87.5 fL (80-94); MONOCYTES # (AUTO) 0.8 K/uL (0.8-1.0); MONOCYTES % (AUTO) 14.9 % (1.7-9.3); NEUTROPHILS # (AUTO) 1.7 K/uL (1.8-7.7); NEUTROPHILS % (AUTO) 34.5 % (42.2-75.2); PLATELET COUNT (AUTO) 194 K/uL (140-450); RED BLOOD CELL COUNT(AUTO) 3.66 MIL/uL (4.20-5.40); RED CELL DISTRIBUTION WIDTH 17.8 % (11.6-13.7)
[2023-11-10 06:04] LABS: ANION GAP 10.4 (8-16); CALCIUM 8.9 mg/dL (8.5-10.1); CARBON DIOXIDE 29.2 mmol/L (21-32); CREATININE 1.1 mg/dL (0.6-1.3); MAGNESIUM 1.9 mg/dL (1.8-2.4); POTASSIUM 3.6 mmol/L (3.5-5.1); TOTAL BILIRUBIN 0.5 mg/dL (0.0-1.0); TOTAL PROTEIN, SERUM 6.6 g/dL (6.4-8.2)
[2023-11-10] MEDS: PANTOPRAZOLE 40 MG TABEC PO SCH (06:34)
[2023-11-10] MEDS: LOSARTAN 25 MG TAB PO SCH (08:36)
[2023-11-10] MEDS: ASPIRIN 81 MG TAB.CHEW PO SCH (08:37)
[2023-11-10] MEDS: ATORVASTATIN 20 MG TAB PO SCH (08:38)
[2023-11-10] MEDS: ESCITALOPRAM 20 MG TAB PO SCH (08:38)
[2023-11-10] MEDS: DOCUSATE SODIUM 100 MG GELCAP PO SCH (08:39)
[2023-11-10] MEDS ORDERED: ECOTRIN 81 MG TABEC PO SCH (09:00)
[2023-11-10] MEDS ORDERED: CYCLOBENZAPRINE 10 MG TAB PO PRN (16:05)
[2023-11-10] MEDS: FUROSEMIDE 20 MG/2 ML VIAL IVP SCH (20:19)
[2023-11-10] MEDS: CRUSHER, PILL MC ONE (20:30)
[2023-11-11] VITALS (9 sets, daily range): BP systolic 107–117; BP diastolic 72–85; PULSE 69–89; RESP 17–20; TEMP 97.4–98; O2SAT 96–100
[2023-11-11] MEDS ORDERED: hydrOXYzine PAMOATE 25 MG CAP PO PRN (12:10)
[2023-11-11] MEDS ORDERED: ASPI-1856 PO (15:46)
[2023-11-11] MEDS ORDERED: CARV6.252 PO (15:46)
[2023-11-11] MEDS ORDERED: ALBU0.0912 INH (15:46)
[2023-11-11] MEDS ORDERED: ATOR20TA40 PO (15:46)
[2023-11-11] MEDS ORDERED: ATA25 PO (15:46)
[2023-11-11] MEDS ORDERED: SPIR25TA21 PO (15:46)
[2023-11-11] MEDS ORDERED: LOSA-269 PO (15:46)
[2023-11-11] MEDS ORDERED: ESCI5TAB18 PO (15:46)
[2023-11-11] MEDS ORDERED: FUROSEMIDE 40 MG/4 ML VIAL IVP SCH (17:00)
== END 2023-11-11 16:00 | disposition home or self-care (01) ==
LOC: MED 07:49 → MTU 13:07
PROVIDERS: ADMIT Hospitalist; ATTEND Hospitalist
DX: I21.A1 Myocardial infarction type 2 (principal); I42.9 Cardiomyopathy, unspecified; I50.9 Heart failure, unspecified; I11.0 Hypertensive heart disease with heart failure; E78.5 Hyperlipidemia, unspecified; I25.10 Atherosclerotic heart disease of native coronary artery without angina pectoris; K21.9 Gastro-esophageal reflux disease without esophagitis; J44.9 Chronic obstructive pulmonary disease, unspecified; D64.9 Anemia, unspecified; Z79.899 Other long term (current) drug therapy; Z79.82 Long term (current) use of aspirin; Z88.0 Allergy status to penicillin
CPT/HCPCS: 36415; 71045; 80048; 80053; 80076; 83735; 83880; 84484; 85025; 85610; 85730; 87081; 93005; 94760; 96372; 96374; 96375; 96376; 99285; C8929; G0378; J1644; J1940; J2270; J2405

== ENCOUNTER 2023-11-24 14:20 | Emergency (ER) | payer OTHER ==
[~2023-11-24] VITALS: Ht 154.9 cm; Wt 76.3 kg
[~2023-11-24 14:20] MED LIST changes: -ACET-8905 PO; -ATI.5 PO; -CYCL-711 PO; -FURO-570 PO; -MELO-174 PO; -OMEP20EC11 PO
[2023-11-24 14:54] VITALS: BP 125/91; PULSE 79; RESP 28; TEMP 98; O2SAT 100
[2023-11-24 16:02] LABS: BASOPHILS # (AUTO) 0.1 K/uL (0.00-0.22); BASOPHILS % (AUTO) 1.1 % (0.0-2.0); EOSINOPHILS # (AUTO) 0.1 K/uL (0-0.4); EOSINOPHILS % (AUTO) 1.7 % (0.0-4.0); HEMOGLOBIN 10.6 g/dL (12.0-16.0); LYMPHOCYTES # (AUTO) 2.1 K/uL (2.5-16.5); LYMPHOCYTES % (AUTO) 43.3 % (20.5-51.1); MEAN CORPUSCULAR HEMOGLOBIN 28 pg (27-31); MEAN CORPUSCULAR HGB CONC 32 g/dL (33-37); MEAN CORPUSCULAR VOLUME 85.7 fL (80-94); MONOCYTES # (AUTO) 0.8 K/uL (0.8-1.0); NEUTROPHILS # (AUTO) 1.8 K/uL (1.8-7.7); NEUTROPHILS % (AUTO) 37.9 % (42.2-75.2); PLATELET COUNT (AUTO) 192 K/uL (140-450); RED BLOOD CELL COUNT(AUTO) 3.85 MIL/uL (4.20-5.40); RED CELL DISTRIBUTION WIDTH 17.4 % (11.6-13.7); WHITE BLOOD COUNT (AUTO) 4.8 K/uL (4.8-10.8)
[2023-11-24 16:12] LABS: ANION GAP 12.7 (8-16); CALCIUM 8.6 mg/dL (8.5-10.1); CARBON DIOXIDE 25.1 mmol/L (21-32); POTASSIUM 3.8 mmol/L (3.5-5.1)
[2023-11-24 16:19] LABS: ALANINE AMINOTRANSFERASE 23 U/L (12-78); ALBUMIN 3.4 g/dL (3.4-5.0); ALKALINE PHOSPHATASE 77 U/L (50-136); ASPARTATE AMINOTRANSFERASE 23 U/L (15-37); BILIRUBIN,DIRECT 0.2 mg/dL (0.0-0.3); TOTAL BILIRUBIN 0.5 mg/dL (0.0-1.0); TOTAL PROTEIN, SERUM 7.2 g/dL (6.4-8.2)
[2023-11-24] MEDS: ONDANSETRON 4 MG/2 ML VIAL IVP ONE (16:59)
[2023-11-24] MEDS: MORPHINE SULFATE 4 MG/ML SYR IVP ONE (17:01)
[2023-11-24] MEDS: FUROSEMIDE 40 MG/4 ML VIAL IVP ONE (17:01)
[2023-11-24] MEDS: ACETAMINOPHEN EXTRA STRENGTH 500 MG TAB PO ONE (20:46)
[2023-11-24] MEDS: HYDROcodone/APAP 5/325 MG 1 TAB TAB PO ONE (20:59)
[2023-11-24 22:40] VITALS: BP 103/62; PULSE 76; RESP 12; TEMP 98; O2SAT 96
== END 2023-11-24 22:57 | disposition home or self-care (01) ==
LOC: MED 14:20
DX: R07.89 Other chest pain (principal); R06.02 Shortness of breath; R79.89 Other specified abnormal findings of blood chemistry; I11.0 Hypertensive heart disease with heart failure; I50.9 Heart failure, unspecified; F15.10 Other stimulant abuse, uncomplicated; E78.5 Hyperlipidemia, unspecified; J44.9 Chronic obstructive pulmonary disease, unspecified; Z86.79 Personal history of other diseases of the circulatory system; Z79.82 Long term (current) use of aspirin; Z79.899 Other long term (current) drug therapy; Z88.0 Allergy status to penicillin; Z88.8 Allergy status to other drugs, medicaments and biological substances
CPT/HCPCS: 36415; 71045; 80048; 80076; 83880; 84484; 85025; 96374; 96375; 99285; J1940; J2270; J2405; Q0092

== ENCOUNTER 2023-12-03 13:49 | Inpatient (IN) | payer OTHER ==
[~2023-12-03] VITALS: Ht 157.5 cm; Wt 79.4 kg
[2023-12-03 13:50] VITALS: BP 128/86; PULSE 75; RESP 39; TEMP 98.6; O2SAT 99
[2023-12-03 15:01] LABS: BASOPHILS % (AUTO) 0.8 % (0.0-2.0); EOSINOPHILS # (AUTO) 0.1 K/uL (0-0.4); EOSINOPHILS % (AUTO) 1.3 % (0.0-4.0); HEMATOCRIT 31.8 % (36-48); HEMOGLOBIN 10.4 g/dL (12.0-16.0); LYMPHOCYTES # (AUTO) 2.3 K/uL (2.5-16.5); LYMPHOCYTES % (AUTO) 44.2 % (20.5-51.1); MEAN CORPUSCULAR HEMOGLOBIN 28 pg (27-31); MEAN CORPUSCULAR HGB CONC 33 g/dL (33-37); MEAN CORPUSCULAR VOLUME 85.8 fL (80-94); MONOCYTES # (AUTO) 0.8 K/uL (0.8-1.0); MONOCYTES % (AUTO) 15.9 % (1.7-9.3); NEUTROPHILS # (AUTO) 1.9 K/uL (1.8-7.7); NEUTROPHILS % (AUTO) 37.8 % (42.2-75.2); PLATELET COUNT (AUTO) 182 K/uL (140-450); RED BLOOD CELL COUNT(AUTO) 3.71 MIL/uL (4.20-5.40); RED CELL DISTRIBUTION WIDTH 16.8 % (11.6-13.7); WHITE BLOOD COUNT (AUTO) 5.1 K/uL (4.8-10.8)
[2023-12-03 15:23] LABS: ALBUMIN 3.2 g/dL (3.4-5.0); ANION GAP 10.2 (8-16); CARBON DIOXIDE 26.5 mmol/L (21-32); POTASSIUM 3.7 mmol/L (3.5-5.1); TOTAL BILIRUBIN 0.4 mg/dL (0.0-1.0); TOTAL PROTEIN, SERUM 6.7 g/dL (6.4-8.2)
[2023-12-03] MEDS: FUROSEMIDE 100 MG/10 ML VIAL IVP ONE (16:00)
[2023-12-03] MEDS ORDERED: ASPIRIN 325 MG TAB ONE (16:31)
[2023-12-03] MEDS: ASPIRIN 325 MG TAB PO ONE (16:36)
[2023-12-03] MEDS ORDERED: MORPHINE SULFATE 4 MG/ML SYR ONE (16:58)
[2023-12-03] MEDS: MORPHINE SULFATE 4 MG/ML SYR IVP ONE (17:08)
[2023-12-03] MEDS: LORazepam 2 MG/ML VIAL IVP PRN (22:49)
[2023-12-03] MEDS: MORPHINE SULFATE 2 MG/ML SYR IVP PRN (22:50)
[2023-12-04] MEDS ORDERED: ONDANSETRON 4 MG/2 ML VIAL IVP PRN (08:40)
[2023-12-04] MEDS ORDERED: HYDROcodone/APAP 5/325 MG 1 TAB TAB PO PRN (08:40)
[2023-12-04] MEDS ORDERED: ACETAMINOPHEN 325 MG TAB PO PRN (08:40)
[2023-12-04] MEDS ORDERED: KCL 20 MEQ IN 100 mL PREMIX 200 ML IV PRN (08:40)
[2023-12-04] MEDS ORDERED: MAGNESIUM OXIDE 400 MG TAB PO PRN (08:40)
[2023-12-04] MEDS: HEPARIN PER PHARMACY MC SCH (09:00)
[2023-12-04] MEDS: FUROSEMIDE 40 MG/4 ML VIAL IVP SCH (09:02)
[2023-12-04 09:32] LABS: INR 1.01 (0.8-1.2); PARTIAL THROMBOPLASTIN TIME 22.5 secs (22-35.6); PROTHROMBIN TIME 10.6 secs (10.8-13.4)
[2023-12-04] MEDS: hePARIN / DEXT 5% PREMIX 250 ML IV SCH (10:39)
[2023-12-04] MEDS: MORPHINE SULFATE 4 MG/ML SYR IVP PRN (13:32)
[2023-12-04 16:06] VITALS: PULSE 72; RESP 16; O2SAT 98
[2023-12-04 17:28] VITALS: PULSE 95
[2023-12-04 18:00] VITALS: PULSE 95; RESP 19; O2SAT 95
[2023-12-04 20:00] VITALS: BP 108/70; PULSE 70; PULSE 76; RESP 18; TEMP 96.7; O2SAT 100
[2023-12-04] MEDS: ZOLPIDEM 5 MG TAB PO PRN (21:57)
[2023-12-05] VITALS: BP 108/67; PULSE 72; PULSE 78; RESP 18; TEMP 97.3; O2SAT 99
[2023-12-05 04:00] VITALS: BP 111/67; PULSE 73; PULSE 79; RESP 18; TEMP 96.6; O2SAT 97
[2023-12-05 05:33] LABS: BASOPHILS % (AUTO) 0.9 % (0.0-2.0); EOSINOPHILS # (AUTO) 0.1 K/uL (0-0.4); EOSINOPHILS % (AUTO) 2.3 % (0.0-4.0); HEMATOCRIT 34.3 % (36-48); HEMOGLOBIN 11.2 g/dL (12.0-16.0); LYMPHOCYTES # (AUTO) 2.7 K/uL (2.5-16.5); LYMPHOCYTES % (AUTO) 47.2 % (20.5-51.1); MEAN CORPUSCULAR HEMOGLOBIN 28 pg (27-31); MEAN CORPUSCULAR HGB CONC 33 g/dL (33-37); MEAN CORPUSCULAR VOLUME 86.6 fL (80-94); MONOCYTES # (AUTO) 0.9 K/uL (0.8-1.0); MONOCYTES % (AUTO) 14.9 % (1.7-9.3); NEUTROPHILS % (AUTO) 34.7 % (42.2-75.2); PLATELET COUNT (AUTO) 183 K/uL (140-450); RED BLOOD CELL COUNT(AUTO) 3.97 MIL/uL (4.20-5.40); WHITE BLOOD COUNT (AUTO) 5.8 K/uL (4.8-10.8)
[2023-12-05 05:52] LABS: ANION GAP 9.7 (8-16); CALCIUM 8.9 mg/dL (8.5-10.1); CARBON DIOXIDE 31.5 mmol/L (21-32); CREATININE 1.3 mg/dL (0.6-1.3); POTASSIUM 3.2 mmol/L (3.5-5.1)
[2023-12-05 08:00] VITALS: BP 112/77; PULSE 69; PULSE 70; PULSE 71; RESP 18; TEMP 97.6; O2SAT 100; O2SAT 98
[2023-12-05] MEDS: POTASSIUM CHLORIDE 10 MEQ TABER PO PRN (09:36)
[2023-12-05 12:00] VITALS: BP 100/70; PULSE 61; PULSE 80; RESP 18; TEMP 97.1; O2SAT 98
[2023-12-05 16:00] VITALS: BP 118/72; PULSE 74; RESP 18; TEMP 97.1; O2SAT 100
[2023-12-05] MEDS ORDERED: ATOR20TA40 PO (16:02)
[2023-12-05] MEDS ORDERED: SPIR25TA21 PO (16:02)
[2023-12-05] MEDS ORDERED: CARV6.252 PO (16:02)
[2023-12-05] MEDS ORDERED: ALBU0.0912 INH (16:02)
[2023-12-05] MEDS ORDERED: ASPI-1856 PO (16:02)
[2023-12-05] MEDS ORDERED: LOSA-269 PO (16:02)
[2023-12-05] MEDS ORDERED: FURO-572 PO (16:02)
[2023-12-05 16:21] VITALS: BP 100/70; PULSE 61; RESP 16; TEMP 97.1
== END 2023-12-05 18:01 | disposition home or self-care (01) | DRG 203 ==
LOC: MED 13:49 → MTU 19:26
PROVIDERS: ADMIT Hospitalist; ATTEND Hospitalist
DX: R07.89 Other chest pain (principal); J96.01 Acute respiratory failure with hypoxia; I50.23 Acute on chronic systolic (congestive) heart failure; I11.0 Hypertensive heart disease with heart failure; Z79.899 Other long term (current) drug therapy; E78.5 Hyperlipidemia, unspecified; J81.1 Chronic pulmonary edema
CPT/HCPCS: 36415; 71045; 80048; 80053; 83735; 83880; 84484; 85025; 85610; 85730; 87081; 93005; 96374; 96375; 99291; J1644; J1940; J2060; J2270; Q0092

== ENCOUNTER 2023-12-11 07:41 | Emergency (ER) | payer OTHER ==
[~2023-12-11] VITALS: Ht 157.5 cm; Wt 77.3 kg
[~2023-12-11 07:41] MED LIST changes: +FURO-572 PO
[2023-12-11 07:58] VITALS: BP 107/69; PULSE 74; RESP 18; TEMP 97; O2SAT 99
[2023-12-11 08:20] VITALS: O2SAT 99
[2023-12-11 09:25] LABS: BASOPHILS % (AUTO) 0.9 % (0.0-2.0); EOSINOPHILS # (AUTO) 0.1 K/uL (0-0.4); EOSINOPHILS % (AUTO) 1.6 % (0.0-4.0); HEMATOCRIT 31.3 % (36-48); HEMOGLOBIN 10.3 g/dL (12.0-16.0); LYMPHOCYTES % (AUTO) 37.6 % (20.5-51.1); MEAN CORPUSCULAR HEMOGLOBIN 29 pg (27-31); MEAN CORPUSCULAR HGB CONC 33 g/dL (33-37); MEAN CORPUSCULAR VOLUME 86.7 fL (80-94); MONOCYTES # (AUTO) 0.7 K/uL (0.8-1.0); MONOCYTES % (AUTO) 13.3 % (1.7-9.3); NEUTROPHILS # (AUTO) 2.5 K/uL (1.8-7.7); NEUTROPHILS % (AUTO) 46.6 % (42.2-75.2); PLATELET COUNT (AUTO) 200 K/uL (140-450); RED BLOOD CELL COUNT(AUTO) 3.61 MIL/uL (4.20-5.40); RED CELL DISTRIBUTION WIDTH 16.5 % (11.6-13.7); WHITE BLOOD COUNT (AUTO) 5.4 K/uL (4.8-10.8)
[2023-12-11 09:37] VITALS: O2SAT 99
[2023-12-11] MEDS: LORazepam 1 MG TAB PO ONE (09:47)
[2023-12-11 09:48] LABS: ALBUMIN 3.1 g/dL (3.4-5.0); ANION GAP 12.6 (8-16); CALCIUM 8.3 mg/dL (8.5-10.1); CARBON DIOXIDE 24.3 mmol/L (21-32); CREATININE 1.1 mg/dL (0.6-1.3); POTASSIUM 3.9 mmol/L (3.5-5.1); TOTAL BILIRUBIN 0.3 mg/dL (0.0-1.0); TOTAL PROTEIN, SERUM 6.7 g/dL (6.4-8.2)
[2023-12-11 11:42] VITALS: O2SAT 100
[2023-12-11 11:43] VITALS: BP 121/72; PULSE 72; RESP 14; TEMP 98.1; O2SAT 98
[2023-12-11] MEDS: ASPIRIN 325 MG TAB PO ONE (12:22)
[2023-12-11] MEDS ORDERED: ATA25 PO (13:00)
[2023-12-11] MEDS ORDERED: ACET-10509 PO (13:00)
[2023-12-11] MEDS ORDERED: LID5T TP (13:00)
== END 2023-12-11 13:16 | disposition home or self-care (01) ==
LOC: MED 07:41
DX: I11.0 Hypertensive heart disease with heart failure (principal); I50.9 Heart failure, unspecified; F41.9 Anxiety disorder, unspecified; R79.89 Other specified abnormal findings of blood chemistry; J44.9 Chronic obstructive pulmonary disease, unspecified; Z86.69 Personal history of other diseases of the nervous system and sense organs; Z79.899 Other long term (current) drug therapy; Z79.82 Long term (current) use of aspirin; Z88.0 Allergy status to penicillin; Z88.8 Allergy status to other drugs, medicaments and biological substances
CPT/HCPCS: 36415; 71045; 80053; 83880; 84484; 85025; 93005; 99285

== ENCOUNTER 2024-01-19 15:39 | Emergency (ER) | payer OTHER ==
[~2024-01-19] VITALS: Ht 157.5 cm; Wt 79.4 kg
[~2024-01-19 15:39] MED LIST changes: +ACET-10509 PO; +LID5T TP
[2024-01-19 15:49] VITALS: BP 109/78; PULSE 92; RESP 22; TEMP 98; O2SAT 98
[2024-01-19 16:10] VITALS: O2SAT 98
[2024-01-19] MEDS: ONDANSETRON 4 MG ODT PO ONE (16:29)
[2024-01-19] MEDS: DICYCLOMINE 20 MG/2 ML VIAL IM ONE (16:32)
[2024-01-19 16:47] LABS: BASOPHILS % (AUTO) 0.8 % (0.0-2.0); EOSINOPHILS # (AUTO) 0.1 K/uL (0-0.4); EOSINOPHILS % (AUTO) 2.1 % (0.0-4.0); HEMATOCRIT 36.3 % (36-48); HEMOGLOBIN 11.6 g/dL (12.0-16.0); LYMPHOCYTES # (AUTO) 2.4 K/uL (2.5-16.5); LYMPHOCYTES % (AUTO) 44.7 % (20.5-51.1); MEAN CORPUSCULAR HEMOGLOBIN 27 pg (27-31); MEAN CORPUSCULAR HGB CONC 32 g/dL (33-37); MEAN CORPUSCULAR VOLUME 84.4 fL (80-94); MONOCYTES # (AUTO) 0.9 K/uL (0.8-1.0); MONOCYTES % (AUTO) 17.7 % (1.7-9.3); NEUTROPHILS # (AUTO) 1.8 K/uL (1.8-7.7); NEUTROPHILS % (AUTO) 34.7 % (42.2-75.2); PLATELET COUNT (AUTO) 196 K/uL (140-450); RED CELL DISTRIBUTION WIDTH 16.1 % (11.6-13.7); WHITE BLOOD COUNT (AUTO) 5.3 K/uL (4.8-10.8)
[2024-01-19 16:52] LABS: ANION GAP 16.6 (8-16); CALCIUM 9.4 mg/dL (8.5-10.1); CARBON DIOXIDE 21.2 mmol/L (21-32); CREATININE 1.6 mg/dL (0.6-1.3); POTASSIUM 3.8 mmol/L (3.5-5.1)
[2024-01-19 17:10] LABS: ALANINE AMINOTRANSFERASE 23 U/L (12-78); ALBUMIN 3.7 g/dL (3.4-5.0); ALKALINE PHOSPHATASE 80 U/L (50-136); ASPARTATE AMINOTRANSFERASE 18 U/L (15-37); BILIRUBIN,DIRECT 0.1 mg/dL (0.0-0.3); LIPASE 26 U/L (16-77); TOTAL BILIRUBIN 0.3 mg/dL (0.0-1.0); TOTAL PROTEIN, SERUM 7.5 g/dL (6.4-8.2)
[2024-01-19] MEDS: LORazepam 1 MG TAB PO ONE (17:27)
[2024-01-19] MEDS ORDERED: FUROSEMIDE 40 MG TAB ONE (17:34)
[2024-01-19] MEDS ORDERED: CYCLOBENZAPRINE 10 MG TAB ONE (17:34)
[2024-01-19] MEDS ORDERED: CYCL-711 PO (17:36)
[2024-01-19] MEDS: CYCLOBENZAPRINE 10 MG TAB PO ONE (17:36)
[2024-01-19] MEDS: FUROSEMIDE 40 MG TAB PO ONE (17:36)
[2024-01-19 17:42] VITALS: BP 109/78; PULSE 92; RESP 22; TEMP 98; O2SAT 98
== END 2024-01-19 17:42 | disposition home or self-care (01) ==
LOC: MED 15:39
DX: A08.4 Viral intestinal infection, unspecified (principal); J44.9 Chronic obstructive pulmonary disease, unspecified; I11.0 Hypertensive heart disease with heart failure; I50.9 Heart failure, unspecified; F41.9 Anxiety disorder, unspecified; E78.5 Hyperlipidemia, unspecified; Z86.69 Personal history of other diseases of the nervous system and sense organs; Z79.899 Other long term (current) drug therapy; Z88.0 Allergy status to penicillin; Z88.8 Allergy status to other drugs, medicaments and biological substances
CPT/HCPCS: 36415; 71045; 80048; 80076; 83690; 84484; 85025; 93005; 96372; 99285; J0500; Q0092; Q0162

== ENCOUNTER 2024-02-10 06:20 | Emergency (ER) | payer OTHER ==
[~2024-02-10] VITALS: Ht 157.5 cm; Wt 79.4 kg
[~2024-02-10 06:20] MED LIST changes: -ACET-10509 PO; +ACET500T99 PO; +CYCL-711 PO
[2024-02-10 06:28] VITALS: BP 126/85; PULSE 89; RESP 22; TEMP 98; O2SAT 98
[2024-02-10 07:08] LABS: BASOPHILS # (AUTO) 0.1 K/uL (0.00-0.22); BASOPHILS % (AUTO) 1.4 % (0.0-2.0); EOSINOPHILS # (AUTO) 0.1 K/uL (0-0.4); EOSINOPHILS % (AUTO) 2.8 % (0.0-4.0); HEMATOCRIT 33.3 % (36-48); HEMOGLOBIN 10.9 g/dL (12.0-16.0); LYMPHOCYTES % (AUTO) 42.5 % (20.5-51.1); MEAN CORPUSCULAR HEMOGLOBIN 28 pg (27-31); MEAN CORPUSCULAR HGB CONC 33 g/dL (33-37); MEAN CORPUSCULAR VOLUME 84.1 fL (80-94); MONOCYTES # (AUTO) 0.6 K/uL (0.8-1.0); MONOCYTES % (AUTO) 13.1 % (1.7-9.3); NEUTROPHILS # (AUTO) 1.9 K/uL (1.8-7.7); NEUTROPHILS % (AUTO) 40.2 % (42.2-75.2); PLATELET COUNT (AUTO) 186 K/uL (140-450); RED BLOOD CELL COUNT(AUTO) 3.96 MIL/uL (4.20-5.40); RED CELL DISTRIBUTION WIDTH 16.5 % (11.6-13.7); WHITE BLOOD COUNT (AUTO) 4.7 K/uL (4.8-10.8)
[2024-02-10 07:16] LABS: CALCIUM 8.5 mg/dL (8.5-10.1); CARBON DIOXIDE 23.4 mmol/L (21-32); CREATININE 1.1 mg/dL (0.6-1.3); POTASSIUM 4.4 mmol/L (3.5-5.1)
[2024-02-10] MEDS: LORazepam 1 MG TAB PO ONE (07:20)
[2024-02-10] MEDS: ASPIRIN 325 MG TAB PO ONE (07:28)
[2024-02-10] MEDS: KETOROLAC 30 MG/ML VIAL IVP ONE (08:23)
[2024-02-10 09:08] VITALS: TEMP 98
[2024-02-10] MEDS ORDERED: IBUP-2213 PO (09:37)
[2024-02-10 09:50] VITALS: BP 116/73; PULSE 72; RESP 22; O2SAT 99
== END 2024-02-10 09:36 | disposition home or self-care (01) ==
LOC: MED 06:20
DX: R07.9 Chest pain, unspecified (principal); F41.9 Anxiety disorder, unspecified; I11.0 Hypertensive heart disease with heart failure; I50.9 Heart failure, unspecified; J44.9 Chronic obstructive pulmonary disease, unspecified; M79.605 Pain in left leg; Z86.69 Personal history of other diseases of the nervous system and sense organs; Z79.899 Other long term (current) drug therapy; Z88.0 Allergy status to penicillin; Z88.8 Allergy status to other drugs, medicaments and biological substances
CPT/HCPCS: 36415; 71045; 80048; 83880; 84484; 85025; 93005; 93971; 96374; 99285; J1885; Q0092

== ENCOUNTER 2024-02-23 09:18 | Inpatient (IN) | payer OTHER ==
[~2024-02-23] VITALS: Ht 157.5 cm; Wt 85.7 kg
[2024-02-23] VITALS (9 sets, daily range): BP systolic 103–117; BP diastolic 76–82; PULSE 73–88; RESP 16–24; TEMP 97.2–97.8; O2SAT 96–100
[~2024-02-23 09:18] MED LIST changes: +IBUP-2213 PO
[2024-02-23 10:14] LABS: BASOPHILS % (AUTO) 0.6 % (0.0-2.0); EOSINOPHILS # (AUTO) 0.1 K/uL (0-0.4); EOSINOPHILS % (AUTO) 1.5 % (0.0-4.0); HEMATOCRIT 33.8 % (36-48); HEMOGLOBIN 11.1 g/dL (12.0-16.0); LYMPHOCYTES % (AUTO) 37.2 % (20.5-51.1); MEAN CORPUSCULAR HEMOGLOBIN 28 pg (27-31); MEAN CORPUSCULAR HGB CONC 33 g/dL (33-37); MEAN CORPUSCULAR VOLUME 85.1 fL (80-94); MONOCYTES # (AUTO) 0.7 K/uL (0.8-1.0); NEUTROPHILS # (AUTO) 2.6 K/uL (1.8-7.7); NEUTROPHILS % (AUTO) 47.7 % (42.2-75.2); PLATELET COUNT (AUTO) 204 K/uL (140-450); RED BLOOD CELL COUNT(AUTO) 3.97 MIL/uL (4.20-5.40); WHITE BLOOD COUNT (AUTO) 5.5 K/uL (4.8-10.8)
[2024-02-23 10:35] LABS: ALBUMIN 3.4 g/dL (3.4-5.0); ANION GAP 13.4 (8-16); CALCIUM 8.3 mg/dL (8.5-10.1); CARBON DIOXIDE 24.8 mmol/L (21-32); CREATININE 1.2 mg/dL (0.6-1.3); POTASSIUM 4.2 mmol/L (3.5-5.1); TOTAL BILIRUBIN 0.2 mg/dL (0.0-1.0); TOTAL PROTEIN, SERUM 6.9 g/dL (6.4-8.2)
[2024-02-23] MEDS ORDERED: ESCI-28 PO (10:38)
[2024-02-23] MEDS ORDERED: ATOR40TA40 PO (10:38)
[2024-02-23] MEDS ORDERED: FURO40TA9 PO (10:38)
[2024-02-23] MEDS ORDERED: CYCL-657 PO (10:38)
[2024-02-23] MEDS ORDERED: HYDR-3004 PO (10:38)
[2024-02-23] MEDS ORDERED: DAPA5TAB PO (10:38)
[2024-02-23] MEDS ORDERED: LOSA25TA32 PO (10:38)
[2024-02-23] MEDS ORDERED: ATI.5 PO (10:38)
[2024-02-23] MEDS ORDERED: ACET-9526 PO (10:38)
[2024-02-23] MEDS ORDERED: RANO500T7 PO (10:38)
[2024-02-23] MEDS ORDERED: ALBU10.7 (10:38)
[2024-02-23] MEDS ORDERED: LEVE250T7 PO (10:38)
[2024-02-23] MEDS ORDERED: CARV3.122 PO (10:38)
[2024-02-23] MEDS ORDERED: OMEP-283 PO (10:38)
[2024-02-23] MEDS ORDERED: SPIR25TA20 PO (10:38)
[2024-02-23] MEDS ORDERED: ZOLP5TAB7 PO (10:38)
[2024-02-23] MEDS ORDERED: PANT40EC56 PO (10:38)
[2024-02-23] MEDS ORDERED: LORazepam 2 MG/ML VIAL ONE (10:56)
[2024-02-23] MEDS: ASPIRIN 81 MG TAB.CHEW PO ONE (10:59)
[2024-02-23] MEDS: LORazepam 2 MG/ML VIAL IVP ONE (11:01)
[2024-02-23] MEDS: FUROSEMIDE 20 MG/2 ML VIAL IVP ONE (11:03)
[2024-02-23] MEDS ORDERED: ONDANSETRON 4 MG/2 ML VIAL IVP PRN (11:40)
[2024-02-23] MEDS ORDERED: ALBUTEROL 0.083% 2.5 MG/3 ML NEBU INH PRN (11:40)
[2024-02-23] MEDS ORDERED: ACETAMINOPHEN 325 MG TAB PO PRN (11:40)
[2024-02-23] MEDS ORDERED: MORPHINE SULFATE 4 MG/ML SYR ONE (11:40)
[2024-02-23] MEDS: MORPHINE SULFATE 4 MG/ML SYR IVP ONE (11:50)
[2024-02-23] MEDS: CYCLOBENZAPRINE 10 MG TAB PO SCH (13:32)
[2024-02-23] MEDS: LORazepam 2 MG/ML VIAL IVP PRN (18:44)
[2024-02-23 19:04] LABS: AMPHETAMINE, URINE NEGATIVE ng/ml (NEG <=1000); BARBITURATE, URINE NEGATIVE ng/ml (NEG <=200)
[2024-02-23 19:05] LABS: BENZODIAZEPINE, URINE POSITIVE ng/mL (NEG <=200); CANNABINOID, URINE POSITIVE ng/mL (NEG <=50); COCAINE, URINE NEGATIVE ng/mL (NEG <=300); OPIATE, URINE POSITIVE ng/mL (NEG <=2000); PHENCYCLIDINE SCREEN,URINE NEGATIVE ng/mL (NEG <=25)
[2024-02-23] MEDS: HYDROcodone/APAP 5/325 MG 1 TAB TAB PO PRN (19:56)
[2024-02-23] MEDS: levETIRAcetam 500 MG TAB PO SCH (20:27)
[2024-02-23] MEDS: NAPROXEN 500 MG TAB PO SCH (20:28)
[2024-02-23] MEDS: SPIRONOLACTONE 25 MG TAB PO SCH (20:29)
[2024-02-23] MEDS: RANOLAZINE 500 MG TER PO SCH (20:29)
[2024-02-23] MEDS: FUROSEMIDE 20 MG/2 ML VIAL IVP SCH (20:52)
[2024-02-23] MEDS: hydrALAZINE 25 MG TAB PO SCH (20:52)
[2024-02-23] MEDS: carvediloL 3.125 MG TAB PO SCH (20:53)
[2024-02-23] MEDS: ZOLPIDEM 5 MG TAB PO PRN (23:49)
[2024-02-24] VITALS (11 sets, daily range): BP systolic 93–130; BP diastolic 54–89; PULSE 68–86; RESP 18; TEMP 96.3–97.4; O2SAT 0–100
[2024-02-24 05:22] LABS: HEMATOCRIT 32.5 % (36-48); HEMOGLOBIN 10.7 g/dL (12.0-16.0); LYMPHOCYTES % (AUTO) 39.9 % (20.5-51.1); MEAN CORPUSCULAR HEMOGLOBIN 28 pg (27-31); MEAN CORPUSCULAR HGB CONC 33 g/dL (33-37); MEAN CORPUSCULAR VOLUME 84.5 fL (80-94); PLATELET COUNT (AUTO) 187 K/uL (140-450); RED BLOOD CELL COUNT(AUTO) 3.85 MIL/uL (4.20-5.40); RED CELL DISTRIBUTION WIDTH 16.9 % (11.6-13.7); WHITE BLOOD COUNT (AUTO) 4.7 K/uL (4.8-10.8)
[2024-02-24 05:23] LABS: BASOPHILS % (AUTO) 0.6 % (0.0-2.0); EOSINOPHILS # (AUTO) 0.1 K/uL (0-0.4); EOSINOPHILS % (AUTO) 1.9 % (0.0-4.0); LYMPHOCYTES # (AUTO) 1.9 K/uL (2.5-16.5); MONOCYTES # (AUTO) 0.8 K/uL (0.8-1.0); MONOCYTES % (AUTO) 17.6 % (1.7-9.3); NEUTROPHILS # (AUTO) 1.9 K/uL (1.8-7.7)
[2024-02-24 05:50] LABS: ANION GAP 10.5 (8-16); CALCIUM 8.6 mg/dL (8.5-10.1); CARBON DIOXIDE 27.7 mmol/L (21-32); CREATININE 1.5 mg/dL (0.6-1.3); POTASSIUM 4.2 mmol/L (3.5-5.1)
[2024-02-24] MEDS ORDERED: MAGNESIUM OXIDE 400 MG TAB PO PRN (08:05)
[2024-02-24] MEDS ORDERED: POTASSIUM CHLORIDE 10 MEQ TABER PO PRN (08:05)
[2024-02-24] MEDS: LOSARTAN 25 MG TAB PO SCH (08:55)
[2024-02-24] MEDS: ESCITALOPRAM 20 MG TAB PO SCH (08:56)
[2024-02-24] MEDS: ECOTRIN 81 MG TABEC PO SCH (09:00)
[2024-02-24] MEDS: PANTOPRAZOLE 40 MG TABEC PO SCH (09:00)
[2024-02-24] MEDS ORDERED: NON-FORMULARY ITEM (Dapagliflozin Propanediol (Farxiga) 1 TAB) PO SCH (09:00)
[2024-02-24] MEDS ORDERED: NON-FORMULARY ITEM (Escitalopram Oxalate (Escitalopram Oxalate) 1 TAB) PO SCH ×2 (09:00)
[2024-02-24] MEDS: ATORVASTATIN 20 MG TAB PO SCH (09:01)
[2024-02-24] MEDS ORDERED: CLINICAL MONITORING MC PRN (09:10)
[2024-02-24] MEDS ORDERED: DEXTROSE 50% 50 ML SYR IVP PRN (09:30)
[2024-02-24] MEDS ORDERED: INSULIN LISPRO SLIDING SCALE 100 UNITS/ML VIAL SUBQ PRN (09:30)
[2024-02-24] MEDS: LEVOFLOXACIN 500 MG/D5W PREMIX 100 ML IV SCH (10:44)
[2024-02-24] MEDS: BLOOD GLUCOSE MONITORING 1 DEV DEV FS SCH (11:33)
[2024-02-24] MEDS: LORazepam 2 MG/ML VIAL IVP PRN (11:58)
[2024-02-24] MEDS ORDERED: FUROSEMIDE 40 MG/4 ML VIAL IVP SCH ×2 (17:00)
[2024-02-24] MEDS: FUROSEMIDE 40 MG/4 ML VIAL IVP SCH (17:19)
[2024-02-25 01:34] VITALS: O2SAT 99
[2024-02-25 05:18] LABS: BASOPHILS % (AUTO) 0.7 % (0.0-2.0); EOSINOPHILS # (AUTO) 0.1 K/uL (0-0.4); EOSINOPHILS % (AUTO) 2.4 % (0.0-4.0); HEMATOCRIT 34.2 % (36-48); HEMOGLOBIN 11.3 g/dL (12.0-16.0); LYMPHOCYTES # (AUTO) 1.8 K/uL (2.5-16.5); LYMPHOCYTES % (AUTO) 36.2 % (20.5-51.1); MEAN CORPUSCULAR HEMOGLOBIN 28 pg (27-31); MEAN CORPUSCULAR HGB CONC 33 g/dL (33-37); MEAN CORPUSCULAR VOLUME 84.5 fL (80-94); MONOCYTES # (AUTO) 0.8 K/uL (0.8-1.0); NEUTROPHILS # (AUTO) 2.2 K/uL (1.8-7.7); NEUTROPHILS % (AUTO) 44.7 % (42.2-75.2); PLATELET COUNT (AUTO) 193 K/uL (140-450); RED BLOOD CELL COUNT(AUTO) 4.05 MIL/uL (4.20-5.40); WHITE BLOOD COUNT (AUTO) 4.9 K/uL (4.8-10.8)
[2024-02-25 06:48] LABS: ALBUMIN 3.7 g/dL (3.4-5.0); ANION GAP 12.9 (8-16); CALCIUM 8.7 mg/dL (8.5-10.1); CARBON DIOXIDE 27.2 mmol/L (21-32); CREATININE 1.6 mg/dL (0.6-1.3); MAGNESIUM 2.1 mg/dL (1.8-2.4); PHOSPHORUS 3.7 mg/dL (2.5-4.9); POTASSIUM 4.1 mmol/L (3.5-5.1); TOTAL BILIRUBIN 0.7 mg/dL (0.0-1.0)
[2024-02-25] MEDS ORDERED: FURO-570 PO ×2 (07:50→07:53)
[2024-02-25 08:00] VITALS: BP 101/71; PULSE 77; PULSE 91; RESP 18; TEMP 96.9; O2SAT 98
[2024-02-25] MEDS: LOSARTAN 25 MG TAB PO SCH (09:00)
[2024-02-25] MEDS: SPIRONOLACTONE 25 MG TAB PO SCH (09:00)
[2024-02-25 09:46] VITALS: O2SAT 97
[2024-02-25 10:50] VITALS: BP 101/71; PULSE 91; RESP 18; TEMP 96.9
[2024-02-25] MEDS ORDERED: IBUP-1842 PO (14:14)
[2024-02-25] MEDS ORDERED: LID5T TP (14:15)
[2024-02-26] MEDS ORDERED: FUROSEMIDE 40 MG TAB PO SCH (09:00)
== END 2024-02-25 15:30 | disposition home or self-care (01) | DRG 177 ==
LOC: MED 09:18 → MMU 11:41
PROVIDERS: ADMIT Student in an Organized Health Care Education/Training Program; ATTEND Student in an Organized Health Care Education/Training Program
DX: J69.0 Pneumonitis due to inhalation of food and vomit (principal); I50.23 Acute on chronic systolic (congestive) heart failure; N17.9 Acute kidney failure, unspecified; I42.9 Cardiomyopathy, unspecified; I11.0 Hypertensive heart disease with heart failure; D64.9 Anemia, unspecified; F19.10 Other psychoactive substance abuse, uncomplicated; J44.9 Chronic obstructive pulmonary disease, unspecified; R56.9 Unspecified convulsions; Z79.899 Other long term (current) drug therapy; Z88.0 Allergy status to penicillin; Z88.8 Allergy status to other drugs, medicaments and biological substances; Z79.51 Long term (current) use of inhaled steroids; Z91.148 Patient's other noncompliance with medication regimen for other reason; Z86.73 Personal history of transient ischemic attack (TIA), and cerebral infarction without residual deficits
CPT/HCPCS: 36415; 71045; 73562; 80048; 80053; 80305; 82948; 83735; 83880; 84100; 84484; 85025; 87081; 93005; 96374; 96375; 97116; 97163-GP; 99291; J1815; J1940; J1956; J2060; J2270; Q0092

== ENCOUNTER 2024-03-05 09:18 | Inpatient (IN) | payer OTHER ==
[~2024-03-05] VITALS: Ht 157.5 cm; Wt 81.6 kg
[~2024-03-05 09:18] MED LIST changes: +ACET-9526 PO; +ALBU10.7; +ATI.5 PO; -ATOR20TA40 PO; +ATOR40TA40 PO; +CARV3.122 PO; -CARV6.252 PO; +CYCL-657 PO; -CYCL-711 PO; +DAPA5TAB PO; +FURO-570 PO; -FURO-572 PO; +HYDR-3004 PO; +IBUP-1842 PO; +LEVE250T7 PO; +PANT40EC56 PO; +RANO500T7 PO; +ZOLP5TAB7 PO
[2024-03-05 09:34] VITALS: BP 118/79; PULSE 81; RESP 20; TEMP 97.9; O2SAT 100
[2024-03-05 10:31] LABS: BASOPHILS # (AUTO) 0.1 K/uL (0.00-0.22); BASOPHILS % (AUTO) 0.8 % (0.0-2.0); EOSINOPHILS # (AUTO) 0.1 K/uL (0-0.4); EOSINOPHILS % (AUTO) 1.2 % (0.0-4.0); HEMATOCRIT 34.8 % (36-48); HEMOGLOBIN 11.4 g/dL (12.0-16.0); LYMPHOCYTES # (AUTO) 2.3 K/uL (2.5-16.5); LYMPHOCYTES % (AUTO) 33.8 % (20.5-51.1); MEAN CORPUSCULAR HEMOGLOBIN 28 pg (27-31); MEAN CORPUSCULAR HGB CONC 33 g/dL (33-37); MEAN CORPUSCULAR VOLUME 86.5 fL (80-94); MONOCYTES # (AUTO) 0.9 K/uL (0.8-1.0); MONOCYTES % (AUTO) 13.3 % (1.7-9.3); NEUTROPHILS # (AUTO) 3.5 K/uL (1.8-7.7); NEUTROPHILS % (AUTO) 50.9 % (42.2-75.2); PLATELET COUNT (AUTO) 183 K/uL (140-450); RED BLOOD CELL COUNT(AUTO) 4.03 MIL/uL (4.20-5.40); RED CELL DISTRIBUTION WIDTH 16.7 % (11.6-13.7); WHITE BLOOD COUNT (AUTO) 6.9 K/uL (4.8-10.8)
[2024-03-05 10:49] LABS: ALBUMIN 3.3 g/dL (3.4-5.0); CALCIUM 8.3 mg/dL (8.5-10.1); CARBON DIOXIDE 24.9 mmol/L (21-32); CREATININE 1.1 mg/dL (0.6-1.3); POTASSIUM 3.9 mmol/L (3.5-5.1); TOTAL BILIRUBIN 0.5 mg/dL (0.0-1.0); TOTAL PROTEIN, SERUM 6.6 g/dL (6.4-8.2)
[2024-03-05 10:55] LABS: AMPHETAMINE, URINE NEGATIVE ng/ml (NEG <=1000); BARBITURATE, URINE NEGATIVE ng/ml (NEG <=200); BENZODIAZEPINE, URINE NEGATIVE ng/mL (NEG <=200); CANNABINOID, URINE POSITIVE ng/mL (NEG <=50); COCAINE, URINE NEGATIVE ng/mL (NEG <=300); OPIATE, URINE NEGATIVE ng/mL (NEG <=2000); PHENCYCLIDINE SCREEN,URINE NEGATIVE ng/mL (NEG <=25)
[2024-03-05] MEDS: ASPIRIN 81 MG TAB.CHEW PO ONE (11:21)
[2024-03-05] MEDS: LORazepam 1 MG TAB PO ONE (11:22)
[2024-03-05] MEDS ORDERED: ZOLPIDEM 5 MG TAB PO PRN (12:00)
[2024-03-05] MEDS ORDERED: POTASSIUM CHLORIDE 10 MEQ TABER PO PRN (12:00)
[2024-03-05] MEDS ORDERED: ONDANSETRON 4 MG/2 ML VIAL IVP PRN (12:00)
[2024-03-05] MEDS ORDERED: MAGNESIUM OXIDE 400 MG TAB PO PRN (12:00)
[2024-03-05] MEDS ORDERED: ACETAMINOPHEN 325 MG TAB PO PRN (12:00)
[2024-03-05] MEDS: ALBUMIN HUMAN 25% 50 ML IV ONE (12:07)
[2024-03-05] MEDS: FUROSEMIDE 20 MG/2 ML VIAL IVP ONE (12:07)
[2024-03-05 12:20] VITALS: O2SAT 100
[2024-03-05 12:55] VITALS: RESP 23; O2SAT 95
[2024-03-05] MEDS ORDERED: NITROGLYCERIN 0.4 MG TAB SL PRN (13:50)
[2024-03-05] MEDS: MORPHINE SULFATE 2 MG/ML SYR IVP SCH (15:40)
[2024-03-05 16:00] VITALS: BP 115/75; PULSE 69; RESP 18; TEMP 97.3; O2SAT 95
[2024-03-05] MEDS: FUROSEMIDE 40 MG/4 ML VIAL IVP SCH (17:19)
[2024-03-05 18:00] VITALS: PULSE 75
[2024-03-05 20:00] VITALS: BP 129/78; PULSE 82; PULSE 84; RESP 18; TEMP 97.5; O2SAT 99
[2024-03-05] MEDS: LORazepam 2 MG/ML VIAL IVP ONE (20:15)
[2024-03-05] MEDS: carvediloL 3.125 MG TAB PO SCH (20:15)
[2024-03-05] MEDS: HYDROcodone/APAP 5/325 MG 1 TAB TAB PO PRN (23:46)
[2024-03-06] VITALS: BP 100/66; PULSE 64; PULSE 85; RESP 18; TEMP 97.3; O2SAT 96
[2024-03-06 04:00] VITALS: BP 105/74; PULSE 53; PULSE 56; RESP 18; TEMP 97.3; O2SAT 96
[2024-03-06 06:54] LABS: BASOPHILS % (AUTO) 0.7 % (0.0-2.0); EOSINOPHILS # (AUTO) 0.1 K/uL (0-0.4); EOSINOPHILS % (AUTO) 1.9 % (0.0-4.0); HEMATOCRIT 34.5 % (36-48); HEMOGLOBIN 11.2 g/dL (12.0-16.0); LYMPHOCYTES # (AUTO) 3.1 K/uL (2.5-16.5); LYMPHOCYTES % (AUTO) 50.8 % (20.5-51.1); MEAN CORPUSCULAR HEMOGLOBIN 28 pg (27-31); MEAN CORPUSCULAR HGB CONC 32 g/dL (33-37); MEAN CORPUSCULAR VOLUME 85.9 fL (80-94); MONOCYTES # (AUTO) 0.9 K/uL (0.8-1.0); MONOCYTES % (AUTO) 14.6 % (1.7-9.3); NEUTROPHILS # (AUTO) 1.9 K/uL (1.8-7.7); PLATELET COUNT (AUTO) 167 K/uL (140-450); RED BLOOD CELL COUNT(AUTO) 4.02 MIL/uL (4.20-5.40); RED CELL DISTRIBUTION WIDTH 16.8 % (11.6-13.7); WHITE BLOOD COUNT (AUTO) 6.1 K/uL (4.8-10.8)
[2024-03-06 07:21] LABS: ALBUMIN 3.3 g/dL (3.4-5.0); ANION GAP 8.6 (8-16); CALCIUM 8.8 mg/dL (8.5-10.1); CARBON DIOXIDE 29.9 mmol/L (21-32); CREATININE 1.3 mg/dL (0.6-1.3); MAGNESIUM 1.7 mg/dL (1.8-2.4); PHOSPHORUS 4.7 mg/dL (2.5-4.9); POTASSIUM 3.5 mmol/L (3.5-5.1); TOTAL BILIRUBIN 0.3 mg/dL (0.0-1.0); TOTAL PROTEIN, SERUM 6.5 g/dL (6.4-8.2)
[2024-03-06 08:00] VITALS: BP 123/86; PULSE 89; RESP 20; TEMP 97.6; O2SAT 99
[2024-03-06] MEDS: ATORVASTATIN 20 MG TAB PO SCH (09:26)
[2024-03-06] MEDS: SPIRONOLACTONE 25 MG TAB PO SCH (09:26)
[2024-03-06] MEDS: ASPIRIN 81 MG TAB.CHEW PO SCH (09:27)
[2024-03-06] MEDS: LOSARTAN 25 MG TAB PO SCH (09:28)
[2024-03-06] MEDS: LORazepam 2 MG/ML VIAL IM/IVP PRN (10:31)
[2024-03-06 12:00] VITALS: BP 106/66; PULSE 59; PULSE 75; RESP 18; TEMP 97.9; O2SAT 98
== END 2024-03-06 16:10 | disposition home or self-care (01) | DRG 280 ==
LOC: MED 09:18 → MMU 11:56 → MTU 12:25
PROVIDERS: ADMIT Student in an Organized Health Care Education/Training Program; ATTEND Student in an Organized Health Care Education/Training Program
DX: I11.0 Hypertensive heart disease with heart failure (principal); I50.43 Acute on chronic combined systolic (congestive) and diastolic (congestive) heart failure; I21.A1 Myocardial infarction type 2; J96.00 Acute respiratory failure, unspecified whether with hypoxia or hypercapnia; I25.10 Atherosclerotic heart disease of native coronary artery without angina pectoris; F41.9 Anxiety disorder, unspecified; J44.9 Chronic obstructive pulmonary disease, unspecified; D64.9 Anemia, unspecified; I42.0 Dilated cardiomyopathy; E87.70 Fluid overload, unspecified; Z88.0 Allergy status to penicillin; Z88.8 Allergy status to other drugs, medicaments and biological substances; Z82.3 Family history of stroke; Z82.49 Family history of ischemic heart disease and other diseases of the circulatory system
CPT/HCPCS: 36415; 71045; 80053; 80305; 83735; 83880; 84100; 84484; 85025; 96361; 96374; 97110; 97116; 97163-GP; 97530; 99291; J1644; J1940; J2060; J2270; P9046; Q0092

== ENCOUNTER 2024-03-30 05:45 | Inpatient (IN) | payer OTHER ==
[~2024-03-30] VITALS: Ht 157.5 cm; Wt 86.0 kg
[2024-03-30] VITALS (9 sets, daily range): BP systolic 113–123; BP diastolic 64–80; PULSE 63–76; RESP 16–22; TEMP 96.3–97.9; O2SAT 97–100
[~2024-03-30 05:45] MED LIST changes: -ALBU10.7; +ASPI81CT51 PO; +ATOR40TA PO; +CARV3.12 PO; -IBUP-2213 PO; +LOSA25TA43 PO; +SPIR25TA20 PO
[2024-03-30] MEDS: KETOROLAC 30 MG/ML VIAL IM ONE (06:30)
[2024-03-30] MEDS: LORazepam 0.5 MG TAB PO ONE (06:30)
[2024-03-30 06:55] LABS: BASOPHILS # (AUTO) 0.1 K/uL (0.00-0.22); BASOPHILS % (AUTO) 1.6 % (0.0-2.0); EOSINOPHILS # (AUTO) 0.1 K/uL (0-0.4); EOSINOPHILS % (AUTO) 1.2 % (0.0-4.0); HEMATOCRIT 31.9 % (36-48); HEMOGLOBIN 10.4 g/dL (12.0-16.0); LYMPHOCYTES # (AUTO) 2.2 K/uL (2.5-16.5); LYMPHOCYTES % (AUTO) 39.7 % (20.5-51.1); MEAN CORPUSCULAR HEMOGLOBIN 29 pg (27-31); MEAN CORPUSCULAR HGB CONC 33 g/dL (33-37); MEAN CORPUSCULAR VOLUME 88.5 fL (80-94); MONOCYTES # (AUTO) 0.6 K/uL (0.8-1.0); MONOCYTES % (AUTO) 11.7 % (1.7-9.3); NEUTROPHILS # (AUTO) 2.5 K/uL (1.8-7.7); NEUTROPHILS % (AUTO) 45.8 % (42.2-75.2); PLATELET COUNT (AUTO) 194 K/uL (140-450); RED CELL DISTRIBUTION WIDTH 17.2 % (11.6-13.7); WHITE BLOOD COUNT (AUTO) 5.5 K/uL (4.8-10.8)
[2024-03-30 07:12] LABS: ANION GAP 10.9 (8-16); CALCIUM 8.2 mg/dL (8.5-10.1); CARBON DIOXIDE 25.6 mmol/L (21-32); CREATININE 1.2 mg/dL (0.6-1.3); POTASSIUM 3.5 mmol/L (3.5-5.1)
[2024-03-30 07:45] LABS: INR 0.98 (0.8-1.2); PARTIAL THROMBOPLASTIN TIME 24.5 secs (22-35.6); PROTHROMBIN TIME 10.3 secs (10.8-13.4)
[2024-03-30] MEDS: ASPIRIN 81 MG TAB.CHEW PO ONE (08:04)
[2024-03-30] MEDS ORDERED: ACETAMINOPHEN 325 MG TAB PO PRN (09:30)
[2024-03-30] MEDS ORDERED: NITROGLYCERIN 0.4 MG TAB SL PRN (09:30)
[2024-03-30] MEDS ORDERED: ONDANSETRON 4 MG/2 ML VIAL IVP PRN (09:30)
[2024-03-30] MEDS ORDERED: LORazepam 1 MG TAB PO PRN (09:30)
[2024-03-30] MEDS ORDERED: POTASSIUM CHLORIDE 10 MEQ TABER PO PRN (09:30)
[2024-03-30] MEDS ORDERED: MAGNESIUM OXIDE 400 MG TAB PO PRN (09:30)
[2024-03-30] MEDS: CYCLOBENZAPRINE 10 MG TAB PO SCH (12:22)
[2024-03-30] MEDS: LORazepam 2 MG/ML VIAL IM/IVP PRN (13:05)
[2024-03-30] MEDS ORDERED: ATORVASTATIN 20 MG TAB PO SCH (17:00)
[2024-03-30] MEDS: SPIRONOLACTONE 25 MG TAB PO SCH (21:18)
[2024-03-30] MEDS: hydrALAZINE 25 MG TAB PO SCH (21:19)
[2024-03-30] MEDS: carvediloL 3.125 MG TAB PO SCH (21:19)
[2024-03-31 01:37] VITALS: BP 103/57; PULSE 76; RESP 18
[2024-03-31] MEDS: ZOLPIDEM 5 MG TAB PO PRN (01:37)
[2024-03-31 04:00] VITALS: BP 106/73; PULSE 68; RESP 16; TEMP 96.9; O2SAT 98
[2024-03-31 05:48] LABS: BASOPHILS # (AUTO) 0.1 K/uL (0.00-0.22); EOSINOPHILS # (AUTO) 0.1 K/uL (0-0.4); EOSINOPHILS % (AUTO) 1.7 % (0.0-4.0); HEMATOCRIT 33.1 % (36-48); HEMOGLOBIN 10.9 g/dL (12.0-16.0); LYMPHOCYTES # (AUTO) 2.5 K/uL (2.5-16.5); LYMPHOCYTES % (AUTO) 44.2 % (20.5-51.1); MEAN CORPUSCULAR HEMOGLOBIN 29 pg (27-31); MEAN CORPUSCULAR HGB CONC 33 g/dL (33-37); MEAN CORPUSCULAR VOLUME 88.4 fL (80-94); MONOCYTES # (AUTO) 0.7 K/uL (0.8-1.0); MONOCYTES % (AUTO) 12.7 % (1.7-9.3); NEUTROPHILS # (AUTO) 2.3 K/uL (1.8-7.7); NEUTROPHILS % (AUTO) 40.4 % (42.2-75.2); PLATELET COUNT (AUTO) 188 K/uL (140-450); RED BLOOD CELL COUNT(AUTO) 3.74 MIL/uL (4.20-5.40); RED CELL DISTRIBUTION WIDTH 17.5 % (11.6-13.7); WHITE BLOOD COUNT (AUTO) 5.6 K/uL (4.8-10.8)
[2024-03-31 07:18] LABS: ALBUMIN 2.9 g/dL (3.4-5.0); ANION GAP 12.7 (8-16); CALCIUM 8.6 mg/dL (8.5-10.1); CARBON DIOXIDE 24.9 mmol/L (21-32); CREATININE 1.2 mg/dL (0.6-1.3); MAGNESIUM 1.8 mg/dL (1.8-2.4); PHOSPHORUS 3.4 mg/dL (2.5-4.9); POTASSIUM 3.6 mmol/L (3.5-5.1); TOTAL BILIRUBIN 0.4 mg/dL (0.0-1.0); TOTAL PROTEIN, SERUM 6.3 g/dL (6.4-8.2)
[2024-03-31 08:00] VITALS: BP 114/73; PULSE 68; PULSE 72; RESP 16; RESP 18; TEMP 97.9; O2SAT 100
[2024-03-31] MEDS: ATORVASTATIN 20 MG TAB PO SCH (08:18)
[2024-03-31] MEDS: FUROSEMIDE 40 MG/4 ML VIAL IVP SCH (08:18)
[2024-03-31] MEDS: PANTOPRAZOLE 40 MG TABEC PO SCH (08:19)
[2024-03-31] MEDS: ECOTRIN 81 MG TABEC PO SCH (08:19)
[2024-03-31] MEDS: LOSARTAN 25 MG TAB PO SCH (08:20)
[2024-03-31] MEDS ORDERED: FUROSEMIDE 40 MG TAB PO SCH (09:00)
[2024-03-31 16:00] VITALS: BP 106/83; PULSE 71; RESP 18; TEMP 98; O2SAT 99
[2024-03-31 20:00] VITALS: PULSE 78; RESP 16; O2SAT 98
[2024-03-31] MEDS: SERTRALINE 50 MG TAB PO SCH (20:08)
[2024-03-31 23:17] LABS: AMPHETAMINE, URINE NEGATIVE ng/ml (NEG <=1000); BARBITURATE, URINE NEGATIVE ng/ml (NEG <=200); BENZODIAZEPINE, URINE POSITIVE ng/mL (NEG <=200); CANNABINOID, URINE POSITIVE ng/mL (NEG <=50); COCAINE, URINE NEGATIVE ng/mL (NEG <=300); OPIATE, URINE NEGATIVE ng/mL (NEG <=2000); PHENCYCLIDINE SCREEN,URINE NEGATIVE ng/mL (NEG <=25)
[2024-04-01 04:00] VITALS: BP 120/74; PULSE 68; RESP 18; TEMP 96.8; O2SAT 99
[2024-04-01 05:26] LABS: BASOPHILS # (AUTO) 0.1 K/uL (0.00-0.22); BASOPHILS % (AUTO) 1.1 % (0.0-2.0); EOSINOPHILS # (AUTO) 0.1 K/uL (0-0.4); EOSINOPHILS % (AUTO) 1.6 % (0.0-4.0); HEMATOCRIT 34.9 % (36-48); HEMOGLOBIN 11.4 g/dL (12.0-16.0); LYMPHOCYTES # (AUTO) 2.3 K/uL (2.5-16.5); LYMPHOCYTES % (AUTO) 40.4 % (20.5-51.1); MEAN CORPUSCULAR HEMOGLOBIN 29 pg (27-31); MEAN CORPUSCULAR HGB CONC 33 g/dL (33-37); MEAN CORPUSCULAR VOLUME 87.7 fL (80-94); MONOCYTES # (AUTO) 0.9 K/uL (0.8-1.0); MONOCYTES % (AUTO) 15.9 % (1.7-9.3); NEUTROPHILS # (AUTO) 2.3 K/uL (1.8-7.7); PLATELET COUNT (AUTO) 192 K/uL (140-450); RED BLOOD CELL COUNT(AUTO) 3.97 MIL/uL (4.20-5.40); RED CELL DISTRIBUTION WIDTH 17.2 % (11.6-13.7); WHITE BLOOD COUNT (AUTO) 5.7 K/uL (4.8-10.8)
[2024-04-01 06:55] LABS: ALBUMIN 3.1 g/dL (3.4-5.0); ANION GAP 11.2 (8-16); CALCIUM 8.8 mg/dL (8.5-10.1); CARBON DIOXIDE 28.7 mmol/L (21-32); CREATININE 1.2 mg/dL (0.6-1.3); MAGNESIUM 1.9 mg/dL (1.8-2.4); PHOSPHORUS 3.8 mg/dL (2.5-4.9); POTASSIUM 3.9 mmol/L (3.5-5.1); TOTAL BILIRUBIN 0.4 mg/dL (0.0-1.0); TOTAL PROTEIN, SERUM 6.7 g/dL (6.4-8.2)
[2024-04-01 08:00] VITALS: BP 115/87; PULSE 78; PULSE 93; RESP 16; RESP 18; TEMP 97; O2SAT 98; O2SAT 99
[2024-04-01 12:44] VITALS: BP 115/87; PULSE 93; RESP 18; TEMP 97
== END 2024-04-01 13:15 | disposition home or self-care (01) | DRG 280 ==
LOC: MED 05:45 → MTU 09:29
PROVIDERS: ADMIT Student in an Organized Health Care Education/Training Program; ATTEND Student in an Organized Health Care Education/Training Program
DX: I13.0 Hypertensive heart and chronic kidney disease with heart failure and stage 1 through stage 4 chronic kidney disease, or unspecified chronic kidney disease (principal); I50.23 Acute on chronic systolic (congestive) heart failure; I21.A1 Myocardial infarction type 2; I42.7 Cardiomyopathy due to drug and external agent; N18.30 Chronic kidney disease, stage 3 unspecified; F32.A Depression, unspecified; J44.9 Chronic obstructive pulmonary disease, unspecified; Z91.148 Patient's other noncompliance with medication regimen for other reason; Z79.899 Other long term (current) drug therapy; Z79.82 Long term (current) use of aspirin; Z88.0 Allergy status to penicillin; Z88.8 Allergy status to other drugs, medicaments and biological substances; T43.655A Adverse effect of methamphetamines, initial encounter; F15.10 Other stimulant abuse, uncomplicated; F12.10 Cannabis abuse, uncomplicated
CPT/HCPCS: 36415; 71045; 80048; 80053; 80305; 83735; 83880; 84100; 84484; 85025; 85379; 85610; 85730; 87081; 93005; 96372; 97116; 97163-GP; 99291; J1644; J1885; J1940; J2060; Q0092

== ENCOUNTER 2024-04-09 00:21 | Inpatient (IN) | payer OTHER ==
[~2024-04-09] VITALS: Ht 157.5 cm; Wt 85.7 kg
[2024-04-09] VITALS (8 sets, daily range): BP systolic 99–121; BP diastolic 56–83; PULSE 64–88; RESP 18–19; TEMP 97.5–208.6; O2SAT 97–100
[~2024-04-09 00:21] MED LIST changes: -ACET-9526 PO; -ASPI-1856 PO; -ATI.5 PO; -ATOR40TA40 PO; -CARV3.12 PO; -LOSA25TA43 PO; -SPIR25TA21 PO
[2024-04-09] MEDS: MORPHINE SULFATE 4 MG/ML SYR IVP ONE (01:57)
[2024-04-09] MEDS: ASPIRIN 325 MG TAB PO ONE (01:58)
[2024-04-09 02:04] LABS: BASOPHILS # (AUTO) 0.1 K/uL (0.00-0.22); BASOPHILS % (AUTO) 1.6 % (0.0-2.0); EOSINOPHILS # (AUTO) 0.1 K/uL (0-0.4); EOSINOPHILS % (AUTO) 2.4 % (0.0-4.0); HEMATOCRIT 32.8 % (36-48); LYMPHOCYTES # (AUTO) 2.7 K/uL (2.5-16.5); LYMPHOCYTES % (AUTO) 46.5 % (20.5-51.1); MEAN CORPUSCULAR HEMOGLOBIN 30 pg (27-31); MEAN CORPUSCULAR HGB CONC 34 g/dL (33-37); MEAN CORPUSCULAR VOLUME 89.5 fL (80-94); MONOCYTES # (AUTO) 0.5 K/uL (0.8-1.0); MONOCYTES % (AUTO) 9.2 % (1.7-9.3); NEUTROPHILS # (AUTO) 2.3 K/uL (1.8-7.7); NEUTROPHILS % (AUTO) 40.3 % (42.2-75.2); PLATELET COUNT (AUTO) 194 K/uL (140-450); RED BLOOD CELL COUNT(AUTO) 3.67 MIL/uL (4.20-5.40); WHITE BLOOD COUNT (AUTO) 5.7 K/uL (4.8-10.8)
[2024-04-09 02:05] LABS: ANION GAP 12.7 (8-16); CALCIUM 8.4 mg/dL (8.5-10.1); CARBON DIOXIDE 26.5 mmol/L (21-32); POTASSIUM 4.2 mmol/L (3.5-5.1)
[2024-04-09] MEDS: NITROGLYCERIN 2% 1 GM PKT TP ONE (02:09)
[2024-04-09 02:14] LABS: ALANINE AMINOTRANSFERASE 19 U/L (12-78); ALBUMIN 3.3 g/dL (3.4-5.0); ALKALINE PHOSPHATASE 80 U/L (50-136); ASPARTATE AMINOTRANSFERASE 17 U/L (15-37); BILIRUBIN,DIRECT 0.1 mg/dL (0.0-0.3); TOTAL BILIRUBIN 0.3 mg/dL (0.0-1.0); TOTAL PROTEIN, SERUM 6.9 g/dL (6.4-8.2)
[2024-04-09 03:13] LABS: INR 1.05 (0.8-1.2); PARTIAL THROMBOPLASTIN TIME 27.8 secs (22-35.6)
[2024-04-09] MEDS: ENOXAPARIN 80 MG/0.8 ML SYR SUBQ ONE (03:45)
[2024-04-09] MEDS ORDERED: ACETAMINOPHEN 325 MG TAB PO PRN (04:30)
[2024-04-09] MEDS ORDERED: HYDROcodone/APAP 5/325 MG 1 TAB TAB PO PRN (04:30)
[2024-04-09] MEDS ORDERED: hePARIN / DEXT 5% PREMIX 250 ML IV SCH (04:35)
[2024-04-09] MEDS ORDERED: NITROGLYCERIN 0.4 MG TAB SL PRN (04:35)
[2024-04-09] MEDS ORDERED: HEPARIN PER PHARMACY MC PRN (04:35)
[2024-04-09] MEDS: SPIRONOLACTONE 25 MG TAB PO SCH (09:00)
[2024-04-09] MEDS ORDERED: HYDROXYZINE HYDROCHLORIDE 25 MG TAB PO PRN (09:00)
[2024-04-09] MEDS ORDERED: ATORVASTATIN 20 MG TAB PO SCH (09:00)
[2024-04-09] MEDS: LOSARTAN 25 MG TAB PO SCH (09:00)
[2024-04-09] MEDS: hydrALAZINE 25 MG TAB PO SCH (09:00)
[2024-04-09] MEDS: carvediloL 3.125 MG TAB PO SCH (09:00)
[2024-04-09] MEDS ORDERED: METOPROLOL 25 MG TAB PO SCH (09:00)
[2024-04-09] MEDS: PANTOPRAZOLE 40 MG TABEC PO SCH (09:49)
[2024-04-09] MEDS: LIDOCAINE 5% 1 EA PATCH TP SCH (09:50)
[2024-04-09] MEDS: FUROSEMIDE 40 MG TAB PO SCH (09:50)
[2024-04-09] MEDS: ATORVASTATIN 20 MG TAB PO SCH (09:51)
[2024-04-09] MEDS: LORazepam 1 MG TAB PO PRN (09:51)
[2024-04-09] MEDS ORDERED: BENZOCAINE/MENTHOL 1 LOZ MM PRN (10:45)
[2024-04-09 12:33] LABS: APPEARANCE,URINE CLEAR (CLEAR); BILIRUBIN,URINE NEGATIVE (NEGATIVE); BLOOD, URINE TRACE-L (NEGATIVE); COLOR,URINE YELLOW (YELLOW); LEUKOCYTE ESTERASE ,URINE NEGATIVE (NEGATIVE); NITRITE, URINE NEGATIVE (NEGATIVE); PROTEIN,URINE NEGATIVE (NEGATIVE); UGLUCOSE TRACE (NEGATIVE); UROBILINOGEN,URINE 0.2 EU/dL (0.2 - 1)
[2024-04-09] MEDS: MORPHINE SULFATE 2 MG/ML SYR IVP PRN (12:53)
[2024-04-09 12:59] LABS: BACTERIA,URINE OCCASSIONAL /HPF (None Seen); MUCUS,URINE 1+ /LPF (None Seen); RBC,URINE 0-5 /HPF (0-5); SQUAMOUS EPITHELIAL CELL,UR 0-3 (FEW) /LPF (0-3 (FEW)); WBC,URINE 0-5 /HPF (0-5)
[2024-04-09] MEDS ORDERED: RANOLAZINE 500 MG TER PO SCH (21:00)
[2024-04-09] MEDS ORDERED: ESCITALOPRAM 20 MG TAB PO SCH (21:00)
[2024-04-10] MEDS ORDERED: ASPIRIN 81 MG TAB.CHEW PO SCH (09:00)
[2024-04-10] MEDS ORDERED: LIDOCAINE 4% 1 EA PATCH TP SCH (09:00)
== END 2024-04-09 17:25 | disposition home or self-care (01) | DRG 313 ==
LOC: MED 00:21 → MTU 04:34
PROVIDERS: ADMIT Student in an Organized Health Care Education/Training Program; ATTEND Student in an Organized Health Care Education/Training Program
DX: R07.89 Other chest pain (principal); I42.9 Cardiomyopathy, unspecified; I13.0 Hypertensive heart and chronic kidney disease with heart failure and stage 1 through stage 4 chronic kidney disease, or unspecified chronic kidney disease; I50.22 Chronic systolic (congestive) heart failure; N18.30 Chronic kidney disease, stage 3 unspecified; F41.9 Anxiety disorder, unspecified; I25.10 Atherosclerotic heart disease of native coronary artery without angina pectoris; F12.10 Cannabis abuse, uncomplicated; F32.A Depression, unspecified; J44.9 Chronic obstructive pulmonary disease, unspecified; Z88.0 Allergy status to penicillin; Z88.8 Allergy status to other drugs, medicaments and biological substances; Z86.73 Personal history of transient ischemic attack (TIA), and cerebral infarction without residual deficits
CPT/HCPCS: 36415; 71045; 80048; 80076; 81001; 83880; 84484; 85025; 85379; 85610; 85730; 87081; 93005; 96372; 96374; 99285; J1650; J2270; Q0092